=== PATIENT | female | born 1950 | race Caucasian/White ===

== ENCOUNTER 2019-12-08 11:59 | Outpatient (CLI) | payer MEDICARE ==
[~2019-12-08] VITALS: Ht 170.2 cm; Wt 90.8 kg
[2019-12-08] MEDS ORDERED: CYAN100088 PO (13:34)
[2019-12-08] MEDS ORDERED: CALC1CAP21 PO (13:34)
[2019-12-08] MEDS ORDERED: ATOR40TA70 PO (13:34)
[2019-12-08] MEDS ORDERED: CHOL500061 PO (13:34)
[2019-12-08] MEDS ORDERED: ALEN70TA2 PO (13:34)
[2019-12-08] MEDS ORDERED: ASPI-586 PO (13:34)
== END 2019-12-08 13:39 | disposition home or self-care (01) ==
LOC: PREOP 11:59
PROVIDERS: ATTEND Podiatrist Foot & Ankle Surgery
DX: Z01.818 Encounter for other preprocedural examination (principal)

== ENCOUNTER 2019-12-12 09:12 | Day surgery (SDC) | payer MEDICARE, OTHER ==
[2019-12-12] VITALS (10 sets, daily range): BP systolic 87–155; BP diastolic 41–96
[~2019-12-12] VITALS: Ht 170.2 cm; Wt 90.8 kg
[~2019-12-12 09:12] MED LIST: ALEN70TA2 PO; ASPI-586 PO; ATOR40TA70 PO; CALC1CAP21 PO; CHOL500061 PO; CYAN100088 PO
[2019-12-12] MEDS ORDERED: LACTATED RINGERS 1,000 ML IV PRN (09:26)
[2019-12-12] MEDS ORDERED: ceFAZolin INJECTION 1,000 MG in WATER (STERILE) FOR INJECTION 10 ML IV ONE (09:30)
[2019-12-12] MEDS ORDERED: fentaNYL INJECTION 100 MCG/2 ML AMP ONE (09:40)
[2019-12-12] MEDS ORDERED: BUPIVACAINE 0.5% 30 ML (SENSORCAINE) VIAL ONE (09:40)
[2019-12-12] MEDS ORDERED: MIDAZOLAM 2 MG/2 ML (VERSED) VIAL ONE (09:41)
[2019-12-12] MEDS ORDERED: CATHETER FLUSH 10 ML SYR IV PRN (09:45)
[2019-12-12] MEDS ORDERED: MULT-974 PO (10:22)
--- NOTE | 2019-12-12 11:52 | Progress Note-Pre Operative ---
Pre-Operative Progress Note H&P Reviewed The H&P was reviewed, patient examined and no changes noted. Date Seen by Provider: Dec 12, 2019 Time Seen by Provider: 11:51 Date H&P Reviewed: Dec 12, 2019 Time H&P Reviewed: 11:51 Pre-Operative Diagnosis: Hallux Rigidus left HANNAH BANSAL DPM Dec 12, 2019 11:51
[2019-12-12] MEDS ORDERED: ONDANSETRON 4 MG/2 ML (SDV) Z0FRAN ONE (12:47)
[2019-12-12] MEDS ORDERED: SEVOFLURANE (ULTANE) 15 ML INHAL SOLN ONE (12:47)
[2019-12-12] MEDS ORDERED: LIDOCAINE PF 2% 5 ML (XYLOCAINE) VIAL ONE (12:47)
[2019-12-12] MEDS ORDERED: proPOfol 200 MG/20 ML (DIPRIVAN) VIAL IV ONE (12:47)
[2019-12-12] MEDS ORDERED: HYDROmorphone 2 MG/ML VIAL (DILAUDID) IV ONE (13:00)
[2019-12-12] MEDS ORDERED: morphine INJ 10 MG/ML 1ML (SYR OR VIAL) IVP ONE (13:00)
[2019-12-12] MEDS ORDERED: ONDANSETRON 4 MG/2 ML (SDV) Z0FRAN IVP PRN (13:00)
[2019-12-12] MEDS ORDERED: MEPERIDINE (DEMEROL) INJ 50 MG/ML IVP ONE (13:00)
[2019-12-12] MEDS ORDERED: LACTATED RINGERS 1,000 ML IV SCH (13:04)
--- NOTE | 2019-12-12 13:04 | Progress Note-Post Operative ---
Post-Operative Progess Note Surgeon (s)/Superintendent Fish Hatchery (s) Surgeon HANNAH BANSAL DPM Superintendent [employer]chery: none Pre-Operative Diagnosis Hallux Rigidus left Post-Operative Diagnosis Same Procedure & Operative Findings Date of Procedure 12/12/19 Procedure Performed/Findings Metatarsal Fracisco-Implant, left Anesthesia Type General Estimated Blood Loss Estimated blood loss (mL): Minimal Specimens/Packing Specimens Removed None HANNAH BANSAL DPM Dec 12, 2019 13:04
[2019-12-12] MEDS ORDERED: CEPH500C PO (13:07)
[2019-12-12] MEDS ORDERED: HYDR-4226 PO (13:07)
--- NOTE | 2019-12-12 13:10 | Diagnostic Imaging Report ---
INDICATION: Fluoroscopy for left foot surgery. FINDINGS: Fluoroscopy was provided in the OR during left foot surgery. 4 seconds of fluoroscopic time was utilized. Two images were obtained demonstrating prosthesis in the distal first metatarsal. Alignment is anatomic. IMPRESSION: Fluoroscopy for left foot surgery. Dictated by: Dictated on workstation # [id number]
[2019-12-12] MEDS ORDERED: HYDROcodone/APAP 5 MG/325 MG (LORTAB) TAB PO PRN (13:15)
--- NOTE | 2019-12-12 13:45 | NUR ---
TO AMB SURG FROM PAR PER CART. ALERT, RATES LEFT FOOT PAIN 2. LEFT FOOT ELEVATED, ICE AT ANKLE. CMS CHECKS WNL TO LEFT TOES. COBAN WRAPPED DSG D/I TO LEFT FOOT. SPLINT SHOE APPLIED
[2019-12-12] MEDS ORDERED: HYDROcodone/APAP 5 MG/325 MG (LORTAB) TAB ONE (13:58)
--- NOTE | 2019-12-12 14:08 | NUR ---
TAKING PO FLUIDS AND CRACKERS WITHOUT PROBLEM. LORTAB 5/325 MG, ONE TAB, GIVEN PO FOR LEFT FOOT PAIN.
--- NOTE | 2019-12-12 14:55 | NUR ---
PAIN RATED 1-2. REQUESTING DISMISSAL. NO CHANGE IN SITE OR CMS ASSESSMENTS.
--- NOTE | 2019-12-12 20:16 | OPERATIVE REPORT ---
DATE OF SERVICE: 12/12/2019 SURGEON: Caroline Bansal DPM. PREOPERATIVE DIAGNOSIS: Hallux rigidus, left. POSTOPERATIVE DIAGNOSIS: Hallux rigidus, left. PROCEDURE: Ansley-implant for the metatarsal head, left first metatarsophalangeal joint. WOUND CLASS: Clean. ANESTHESIA: General. HEMOSTASIS: Pneumatic thigh tourniquet at 300 mmHg. INDICATIONS: This is a 69-year-old female presents complaining of a painful left great toe joint. Conservative therapy has met with unsatisfactory results and the patient is agreeable to surgical intervention after risks and complications were discussed at length. No guarantees were extended to the patient and she is willing to proceed. DESCRIPTION OF PROCEDURE: The patient was brought back to the operating table, placed in secure supine position. Appropriate timeout was performed. Pneumatic thigh tourniquet was placed on left lower extremity over several layers of padding. The left foot was anesthetized utilizing 8 mL of 0.5% Marcaine injected in a Banegas block, left foot was then prepped and draped in normal sterile manner. The left foot was then elevated, allowed to exsanguinate after which the tourniquet was inflated to 300 mmHg. Attention was then directed to the dorsal aspect of the left first metatarsophalangeal joint where a 6 cm longitudinal linear incision was created. The incision was deepened in same plane with great care to identify and retract all vital neurovascular structures where necessary blood vessels were cauterized as encountered. The incision was deepened down to the capsular tissue where a longitudinal capsulotomy was performed. The capsular tissue was reflected medially and laterally exposing the hypertrophic dorsal medial eminence to the first metatarsal head. The first metatarsal head was devoid of almost all articular cartilage. There was some deficit to the dorsal lateral aspect of the base of the proximal phalanx as well. Due to the amount of articular damage it was then decided that a ansley-implant would be more appropriate then cheilectomy at this point. Next, utilizing the Integra ansley-metatarsal implant system, the implant was applied to the left first metatarsal head. First, a guidewire was positioned utilizing the position guide from the first metatarsal head proximally and placement was confirmed with C-arm. Next, reamers were used. Concave reamer was used to shape the head of the first metatarsal, the 30 that was utilized. Next, a reamer was used over the guidewire followed by a guide to cut the dorsal flange of the first metatarsal head. After this, a sizer was applied, which was a size 30. There was crepitation free range of motion with approximately 45 degrees of dorsiflexion appreciated at this time. The sizer was removed and the wound was flushed with copious amounts of normal saline. After this, the Integra metatarsal ansley-implant was applied, impacted onto the digit confirmed with intraoperative C-arm the placement. The wound was flushed with copious amounts of normal saline after which closure was performed in layers. Deep closure was performed with 3-0 Vicryl, superficial with 4-0 Vicryl, skin closed with 4-0 Prolene in a horizontal mattress type stitch. Postoperative injection consisted of 10 mL of 0.5% Marcaine injected in a local infusion to the surgical sites. Postoperative dressing consisted of Betadine soaked Adaptic, sterile 4 x 4, sterile Kerlix all secured with Coban wrap. The patient tolerated the anesthesia and procedure well. He was transported from the operating room to the recovery area with vital signs stable and vascular status intact to all digits of the left foot. She is to follow up in my office in one week period of time or sooner if necessary. Job ID: [id number] DocumentID: [id number] Dictated Date: 12/12/2019 13:15:11 Produce Production Team Member Date: 12/12/2019 20:15:01 Dictated By: CAROLINE BANSAL DPM
--- OUTSIDE RECORDS SUMMARY | 2019-12-14 17:34 | XMS REPORT | CCD ---
Author Author ERICH MARCELINO Organization Unknown Address [address] [place] [address] Care Team Providers Care Agricultural Education Professor Name Role Phone DELTA GASTON, MIESHA MANRIQUEZ Attphys Allergies Allergy Code Allergy Type Reaction Status No Known Drug Allergies 0 Drug allergy Active Active Medications No Active Medications Problems Problem Code Start Date Resolved Date Sta tus Acute interstitial nephritis 14903268 07/09/2016 Active Nausea vomiting and diarrhea 9974126 07/09/2016 Active Procedures Procedure Code Procedure Type Date Arthrs kne surg w/meniscectomy med/lat w/shvg; (-RT Ri ght side of body) 67647 CPT 10/10/2016 Arthroscopy knee removal fb; (-XS Separate Structure); (-RT Right side of G0289 CPT 10/10/2016 Results Unknown or Not Available. Function Status Unknown or Not Available. History of Immunizations Immunization Code Date influenza, split (incl. purified surface antigen) 15 07/12/2008 pneumococcal polysaccharide PPV23 33 07/10/2016 Tdap 115 07/16/2015 zoster 121 06/13/2014 Influenza, high dose seasonal 135 09/0 06/2014 Influenza, seasonal, injectable 141 influenza, injectable, quadrivalent, preservative free 150 07/10/2016 Plan of Treatment Unknown or Not Available. Social History Smoking Status Code Start Date End Date Never smoker 479714527 Vital Signs Vital Sign Value Unit Date/Time Recent/I nitial? Weight Measured 200 [lb_av] 10/09/2016 11:13 Initial VS Height 68 [in_i] 10/09/2016 11:13 Initi al VS BMI (Body Mass Index) 30.41 kg/m2 10/09/2016 11 :13 Initial VS BSA (Body Surface Area) 2.09 m2 10/09/2016 11:13 Initial VS BP Systolic 119 mm[Hg] 10/10/2016 11:03 Initial VS BP Diastolic 61 mm[Hg] 10/10/2016 11:03 Initial VS Respiratory Rate 10 /min 10/10/2016 11:03 Initial VS Heart Rate 91 /min 10/10/2016 11:03 I nitial VS O2 % BldC Oximetry 93 % 10/10/2016 11:03 Initial VS BP Systolic 133 mm[Hg] 10/10/2016 11:33 Most Recent VS BP Diastolic 84 mm[Hg] 10/10/2016 11:33 Most Recent VS Respiratory Rate 17 /min 10/10/2016 11:34 Most Recent VS Heart Rate 61 /min 10/10/2016 11:34 M ost Recent VS O2 % BldC Oximetry 98 % 10/10/2016 11:34 Most Recent VS Function Status Unknown or Not Available. Goals Unknown or Not Available. ASSESSMENTS Unknown or Not Available. Health Concerns Section Unknown or Not Available.
--- OUTSIDE RECORDS SUMMARY | 2019-12-14 17:34 | XMS REPORT | CCD ---
Author Author ERICH VILLA Organization Unknown Address [address] [facility] [address] [place] [address] Care Team Providers Care Principal Statistical Scientist Name Role Phone WADENADINE DO Attphys WADEMELINDAR DO Prisurg Allergies Unknown or Not Available. Active Medications Medication Code Dose Units Frequency Rou te Modification Start Date/Time Benadryl Allergy 25MG Oral Tablet 3670723 25 MILLIGRAMS EVERY 4 HOURS ORAL 07/11/2016 09:21 Prescription Detail 25 MILLIGRAMS ORAL EVERY 4 HOURS Gabapentin 300MG Oral Capsule 122731 300 JOSE GRAMS AT BEDTIME ORAL 07/11/2016 09:21 Prescription Detail 300 MILLIGRAMS ORAL AT BEDT CARIN Problems Problem Code Start Date Resolved Date Sta tus Acute interstitial nephritis 34506271 07/09/2016 Active Nausea vomiting and diarrhea 1225428 07/09/2016 Active Procedures Procedure Code Procedure Type Date KNEE [address] 10/01/2016 Results Unknown or Not Available. Encounters Encounter Diagnosis Diagnosis Code Start Date Pain in left knee K59887 10/01/2016 Function Status Unknown or Not Available. History [...] Code Start Date End Date Never smoker [id number] Vital Signs Unknown or Not Available. Function Status Unknown or Not Available. Goals Unknown or Not Available. ASSESSMENTS Unknown or Not Available. Health Concerns Section Unknown or Not Available.
--- OUTSIDE RECORDS SUMMARY | 2019-12-14 17:34 | XMS REPORT ---
Discharge Summary 2.1 Created on: ERICH DE OLIVEIRA External Reference #: [id number] : 1950 Sex: Female Author Author ERICH SU Organization Unknown Address [address] [place], [place] [id number] Care Team Providers Care Cutting Room Supervisor Name Role Phone Xwatchlist EARNEST LOPEZ Xwatchlist ELISA [employer] Anesth NOT PRIV SANKET Yen PORTILLO MANRIQUEZ MD Attending CASSANDRA BRICEÑO APRN [facility] Functional Status No Data Found Immunization Immunization Date Status Additional Notes Code Code System influenza, split (incl. purified surface antigen) 07/12/2008 Completed 15 CVX pneumococcal polysaccharide PPV23 Completed 33 CVX Tdap 07/16/2015 Completed 115 CVX zoster live 06/13/2014 C ompleted 121 CVX Influenza, high dose seasonal 06/13/2014 Completed 135 CVX Influenza, high dose seasonal 06/22/2017 Completed 135 CVX Influenza, high dose seasonal 07/09/2018 Completed 135 CVX Influenza, seasonal, injectable 07/08/2013 Completed 141 CVX influenza, injectable, quadrivalent, preservative free 07/10/2016 Completed 150 CVX Mental Status No Data Found Results LUMBAR SPINE; 2VIEWS OR 3 VIEWS - Comple lai: 07/19/2018 15:55 LOINC: EXAMINATION:LUMBAR SPINE; 2VIEWS OR 3 EWSREASON FOR EXAM:SPINAL STENOSIS; COMPARISON:There is a CT lumbar spine dated July 01, 2018.TECHNIQUE:AP and lateral views of the lumbar spine were obtained in surgery. FINDINGS:There are pedicle fusion screws at L4 and L5. There is anterior subluxation of L4 on L5. Vertebral body alignment is otherwise normal. No periprosthetic lucency or fracture is evident. There is a spacer in the disc at L4-5.Skin dose mapping is 595 mrad.IMPRESSION:Intraoperative pictures of the lumbar spine demonstrate pedicle fusion screws at L4 and L5. No periprosthetic lucency or fracture is seen.Reviewed and Electronically Signed by: Chadd Alexander MD DABRSigned Date/Time: 07/20/2018 4:09 PMJob ID#: [id number] Social History Type Status Start Date End Date Code Code System Smoking History Never smoker (Never Smoked ) 702304303 SNOMED-CT Vital Signs Vital Sign Value Unit [place] Value [place] Unit Date/Time Recent/Initial? Code Cod e System Body Mass Index 30.41 kg /m2 07/16/2018 11:02 Inital 53290-2 LOINC Systolic Blood Pressure 118 mm[Hg] 07/20/2018 11:14 Most Recent 8480-6 LOINC Diastolic Blood Pressure 70 mm[Hg] 07/20/2018 11:14 Most Recent 8462-4 LOINC Systolic Blood Pressure 119 mm[Hg] 07/19/2018 12:13 Inital 8480-6 LOINC Diastolic Blood Pressure 48 mm[Hg] 07/19/2018 12:13 Inital 8462-4 LOINC Body Surface Area 2.09 m2 07/16/2018 11:02 Inital 3140-1 LOINC Height 172.7200 cm 68.00 in 07/16/2018 11:02 Init al 8302-2 LOINC O2 Saturation 98 % 07/20/2018 11:14 Most Recent 38189-0 LOINC O2 Saturation 88 % 07/19/2018 12:13 Inita l 36140-1 LOINC Pulse 65.0 /min 07/20/2018 11:14 Most Recent 8867-4 LOINC Pulse 90.0 /min 07/19/2018 12:13 Inita l 8867-4 LOINC Respiration 16 /min 07/20/2018 11:14 Most Recent 9279-1 LOINC Respiration 18 /min 07/19/2018 12:13 Inita l 9279-1 LOINC Temperature 36.5 Nette 97.7 F 07/20/2018 11:14 Most Recent 8310-5 LOINC Temperature 36.4 Nette 97.5 F 07/19/2018 13:45 Inita l 8310-5 LOINC Weight 90.7185 kg 200.00 lbs 07/16/2018 11:02 Ini edita 95319-7 LOINC Assessment No Data Found Hospital Discharge Instructions Should you have any questions prior to discharge, please contact a member of your healthcare team. If you have left the hospital and have any questions, please contact your primary care physician. PRIMARY CARE PROVIDER: Jada MCCLURE HOME MEDICATION INSTRUCTIONS: Take only the medications listed above.. Verbalizes understanding of instructions, Stop aspirin 81 mg daily until then restart. Verbalizes understanding of instructions. HOME DIET: Regular. ACTIVITY INSTRUCTIONS(list limitations): Activity as Tolerated, No Driving until after [address]st Dr. visit. No bending, or stooping, No hard or heavy excerise/activity, May Shower. Walk often with rest times, Wear C collar when ambulating and out of bed may take off for sleeping and in shower. Leave dressing on for 10 days. SCRIPTS WRITTEN BY DOCTOR GIVEN TO PATIENT? Yes, for what?, Valium 5 mg 1 tab every 6 hours as needed for muscle spasms. Percocet 5/325 mg 1-2 tabs every 4 hours as needed for pain. SMOKING CESSATION: A pamphlet on smoking was given to you, at admission.. IMMUNIZATIONS GIVEN DURING HOSPITALIZATION: Current on both FOLLOW UP APPOINTMENT: Dr. Lucio 08-24-18 at 9:30 am CONTACT PHYSICIAN IF YOU EXPERIENCE ANY: pain, fever, Redness or soreness in calf area. Odor or drainage from incision. PERSONAL ITEMS RETURNED: Yes. PATIENT PORTAL/OTHER INSTRUCTIONS: Provided education info on Patient Precious. INSTRUCTIONS GIVEN AND DISCHARGE TO: Patient. INSTRUCTIONS GIVEN BY (TYPE IN NAME AND DATE) Radha Randle RN 07-20-18 Reason For Referral No Data Found Hospital Course You were admitted to [facility] on 07/19/2018 06:57 with a principal diagnosis of Spinal stenosis, lumbar region without neurogenic claudication You were discharged from [facility] on 07/20/2018 13:45 Medications Medication Start Date En d Date Route Frequency Dose Code Code System Valium 5MG Oral Tablet 07/20/2018 Unknown BY MOUTH 1 TABLET 888168 RxNorm Multivitamin Oral Tablet 07/20/2018 Unknown ORAL DAILY 1 unit(s) 5401659 RxNorm Gabapentin 300MG Oral Capsule 07/20/2018 Unknown ORAL TWO TIMES A DAY 300 MILLIGRAMS 066587 Rx Norm CoQ10 100 MG-1 IU Oral Capsule, Liquid Filled 07/20/2018 Unknown ORAL DAILY 1 unit(s) RxNorm Calcium Citrate with Vitamin D3 315 MG-200 IU Oral Tab let 07/20/2018 Unknown ORAL FOUR TIMES A DAY 1 unit(s) 1017628 RxNorm Atorvastatin Calcium 40MG Oral Tablet 07/20/2018 Unknown ORAL DAILY 40 MILLIGRAMS 157430 RxNorm Aspir 81 81MG Oral Tablet, Enteric Coated 07/20/2018 Unknown 1 562857 RxNorm Leighann Allergy 180MG Oral Tablet Unknown ORAL NEEDED 180 MILLIGRAMS 830635 RxNorm oxyCODONE HCl-acetaminophen 5MG-325MG Oral Tablet 07/20/2018 Unknown BY MOUTH NEED ED 1 TABLET 9186793 RxNorm CoQ10 100 MG Oral Capsule 07/20/2018 Unknown BY MOUTH DAILY 100 MILLIGRAMS RxNorm Gabapentin 300MG Oral Capsule 07/20/2018 Unknown BY MOUTH TWO TIMES A DAY 300 MILLIGRAMS 405430 Rx Norm Procedures Procedure Name Date Stat us Code Code System History of hysterectomy completed 056240868 SNOMED CT Fusion of Lumbar Vertebral Joint with Au tologous Tissue Substitute, Site Monitor 07/19/2018 completed 0SG 0071 ICD10 PCS Release Lumbar Nerve, Open Approach 07/19/2018 completed 77KK3OC ICD10 PCS History of knee arthroscopy completed 732988450 SNOMED CT Fusion of Lumbar Vertebral Joint with In terbody Fusion Device, Posterior A 07/19/2018 completed 0SG 00AJ ICD10 PCS Colonoscopy completed 52188833 SNOMED CT Implants No Data Found Problems Problem Start Date Resol mehdi Date Status Code Code System ACUTE INTERSTITIAL NEPHRITIS 07/19/2018 resolved 56780511 SNOMED -CT NAUSEA VOMITING AND DIARRHEA 07/19/2018 resolved 0257098 SNOMED- CT UTI 07/16/2018 resolved 99373900 SNOMED-CT HIGH CHOLESTEROL 07/16 resolved 70898521 SNOMED -CT ARTHRITIS 07/16/2018 resolved 4343320 SNOMED-CT Allergies Allergy Substance Reaction Severity Start Date Concern Status Code Code System No Known Drug Allergies Active RxNorm Plan of Treatment No Data Found Encounters No Data Found Goals No Data Found Discharge Medications No Data Found Discharge Diagnosis Discharge Diagnosis Diagnosis Code Start Date Spinal stenosis, lumbar region without n eurogenic claudication O68800 07/19/2018 Health Concerns Section No Data Found
--- OUTSIDE RECORDS SUMMARY | 2019-12-14 17:34 | XMS REPORT | CCD ---
Author Author ERICH VILLA Organization Unknown Address [address] [place] [address] Care Team Providers Care Parcel [employer] Weigher Name Role Phone KATJA GLORIA MD Attphys [facility], [place] DELCID Prisurg W., GEM Brunner NASST K., BRETT NASST R., SHANDRA NASST R., MARGARITO Davis NASST S., MOLINA NASST R., ROSEANNE Guy NASST G., LEAH NASST S., DIMA NASST L., BENJAMIN NASST Allergies Unknown or Not Available. Active Medications Problems Problem Code Start Date Resolved Date Acute interstitial nephritis 26553271 07/09/2016 Active Nausea vomiting and diarrhea 9759633 07/09/2016 Active Procedures Procedure Code Procedure Type Date CT ABD AND PELVIS W/CONTRAST 288031059 SNOMED CT 07/09/[address] 07/11/2016 BASIC METABOLIC PANEL 981746009 SNOMED CT 04/2016 CBC W/ AUTO DIFF (RFLX MAN DIFF IF IND) 1688319 SN [facility] 07/11/2016 COMPREHENSIVE METABOLIC PANEL 150566828 SNOMED CT 07/10/2016 CBC W/ AUTO DIFF (RFLX MAN DIFF IF IND) 7426148 SN [facility] CT 07/10/2016 CULTURE URINE 220286672 SNOMED CT 07/09/2016 CULTURE BLOOD 76083955 SNOMED CT 07/09/2016 CULTURE BLOOD 09987996 SNOMED CT 07/09/2016 LACTIC ACID 2386860 [address] 07/09/[address] 07/09/2016 UA ROUTINE C&S IF IND 795860286 SNOMED CT 02/2016 COMPREHENS[facility]OL[facility]25667[facility]2016 C REACTIVE PROTEIN 08543685 [facility] CT 016 CBC W/ AUTO DIFF (RFLX MAN DIFF IF IND) 3363492 [facility] CT 07/09/2016 ^SENSITIVITY 370081076 SNOMED CT 07/09/2016 ^CULTURE AEROBIC ID [id number] SNOMED CT 2015 ^CBC W/ MANUAL DIFF 46386135 SNOMED CT 2015 ^CULTURE AEROBIC ID [id number] SNOMED CT 2015 ^CULTURE URINE IDENTIFICATION 956998659 SNOMED CT 07/09/2016 ^CBC W/ MANUAL DIFF 06632346 SNOMED CT 2015 ^UA WITH MICRO 539283623 SNOMED CT 07/09/2016 ^CBC W/ MANUAL DIFF 52461750 SNOMED CT 2015 LOCM 300-349 MG/ML, PER ML 525708828 [facility] CT 07/09/2016 Results BASIC METABOLIC PANEL - Collect Date/Sukhi e: 07/11/2016 06:25 Test Name Code Test Result Test Units Karishma t Ref Range GLUCOSE 2345-7 114 MG/DL L=70 H=1 00 SODIUM 2951-2 141 MEQ/L L=135 H=14 8 POTASSIUM 2823-3 3.8 MEQ/L L=3.5 H =5.3 CHLORIDE 2075-0 115 MEQ/L L=96 H= 110 CO2 2028-9 19 MEQ/L L=22 H=29 BUN 3094-0 13 MG/DL L=8 H=22 CREATININE 2160-0 1.0 MG/DL L=0.6 H=1.6 CALCIUM 61823-5 7.8 MG/DL L=8.2 H= 10.6 AGE [address]6819-3 65 yrs GFR NonAA 42081-3 55 GFR AA 73544-7 67 eGFR 47182-8 55 mL/min/1.7 eGFR AA* 31608-3 >60 N/A COMPREHENSIVE METABOLIC PANEL - Collect Date/Time: 07/10/2016 06:25 Test Name Code Test Result Test Units Karishma t Ref Range GLUCOSE 2345-7 127 MG/DL L=70 H=1 00 SODIUM 2951-2 138 MEQ/L L=135 H=14 8 POTASSIUM 2823-3 3.4 MEQ/L L=3.5 H =5.3 CHLORIDE 2075-0 108 MEQ/L L=96 H= 110 CO2 2028-9 20 MEQ/L L=22 H=29 BUN 3094-0 19 MG/DL L=8 H=22 CREATININE 2160-0 1.3 MG/DL L=0.6 H=1.6 SGOT/AST 1920-8 17 IU/L L=10 H= 40 SGPT/ALT 1742-6 18 IU/L L=8 H= 54 ALK PHOS 6768-6 105 IU/L L=35 H= 115 TOTAL PROTEIN 2885-2 5.2 G/DL L=5.5 H=8.5 ALBUMIN 1751-7 2.9 G/DL L=3.1 H=5 .4 TOTAL BILI 1975-2 0.5 MG/DL L=0.0 H=1.5 CALCIUM 66279-8 7.8 MG/DL L=8.2 H= 10.6 AGE 63340-3 65 yrs GFR NonAA 03432-7 41 GFR AA 67917-3 50 eGFR 02822-0 41 mL/min/1.7 eGFR AA* 57502-0 50 mL/min/1.7 COMPREHENSIVE METABOLIC PANEL - Collect Date/Time: 07/09/2016 18:45 Test Name Code Test Result Test Units Karishma t Ref Range GLUCOSE 2345-7 199 MG/DL L=70 H=1 00 SODIUM 2951-2 136 MEQ/L L=135 H=14 8 POTASSIUM 2823-3 3.0 MEQ/L L=3.5 H =5.3 CHLORIDE 2075-0 99 MEQ/L L=96 H= 110 CO2 2028-9 21 MEQ/L L=22 H=29 BUN 3094-0 16 MG/DL L=8 H=22 CREATININE 2160-0 1.3 MG/DL L=0.6 H=1.6 SGOT/AST 1920-8 21 IU/L L=10 H= 40 SGPT/ALT 1742-6 25 IU/L L=8 H= 54 ALK PHOS 6768-6 121 IU/L L=35 H= 115 TOTAL PROTEIN 2885-2 6.6 G/DL L=5.5 H=8.5 ALBUMIN 1751-7 3.6 G/DL L=3.1 H=5 .4 TOTAL BILI 1975-2 1.0 MG/DL L=0.0 H=1.5 CALCIUM 87417-3 9.1 MG/DL L=8.2 H= 10.6 AGE 65 yrs GFR NonAA 41 GFR AA 50 eGFR 41 mL/min/1.7 eGFR AA* 50 mL/min/1.7 LIPASE - Collect Date/Time: 07/09/2016 1 8:45 Test Name Code Test Result Test Units Karishma t Ref Range LIPASE 3040-3 6 U/L L=8 H=78 CBC W/ AUTO DIFF (RFLX MAN DIFF IF IND) - Collect Date/Time: 07/11/2016 06:25 Test Name Code Test Result Test Units Karishma t Ref Range WBC 99087-3 17.1 TH/CMM L=4.5 H=1 0.8 RBC 789-8 3.45 ML/CMM L=4.20 H=5. 40 HGB 718-7 10.2 G/DL L=12.0 H=16 .0 HCT 4544-3 31.5 % L=37.0 H=47 .0 MCV 86489-7 91 FL L=81 H=9 9 MCH 70462-6 29.6 PG L=27.0 H=3 3.0 MCHC 04401-4 32.4 G/DL L=31.0 H=3 6.0 [place] [address]-5 44 FL L=36 H=5 0 [place] [address]-7 13.2 % L=0.0 H=1 4.8 MPV 42475-5 9.8 FL L=9.3 H=1 2.5 PLT 777-3 171 TH/CMM L=130 H=44 0 NRBC# 95856-0 0.00 TH/CMM L=0.00 H=0 .00 NRBC% 59925-2 0.0 /100WBC L=0.0 H= 2.0 %NEUT 65059-5 84.5 % %LYMP 17893-0 7.5 % %MONO 34839-6 5.7 % %EOS 80660-8 1.2 % %BASO 92428-0 0.1 % #NEUT 71272-5 14.47 TH/CMM L=2.10 H=8 .20 #LYMP 85662-8 1.28 TH/CMM L=0.90 H=5 .20 #MONO 34566-0 0.97 TH/CMM L=0.16 H=1 .00 #EOS 31166-5 0.20 TH/CMM L=0.00 H=0 .80 #BASO 88962-1 0.02 TH/CMM L=0.00 H=0 .20 SEGS 72260-4 82 % BANDS 54538-3 3 % LYMPHS 63665-9 9 % MONOS 70348-1 3 % EOS 44067-4 3 % MANUAL DIFF 99953-1 SEE BELOW N/A CBC W/ AUTO DIFF (RFLX MAN DIFF IF IND) - Collect Date/Time: 07/10/2016 06:25 Test Name Code Test Result Test Units Karishma t Ref Range WBC 20403-2 22.3 TH/CMM L=4.5 H=1 0.8 RBC 789-8 3.61 ML/CMM L=4.20 H=5. 40 HGB 718-7 10.9 G/DL L=12.0 H=16 .0 HCT 4544-3 32.4 % L=37.0 H=47 .0 MCV 51379-3 90 FL L=81 H=9 9 MCH 55735-4 30.2 PG L=27.0 H=3 3.0 MCHC 03066-0 33.6 G/DL L=31.0 H=3 6.0 [place] [address]-2 41 FL L=36 H=5 0 [place] 03341-6 12.4 % L=0.0 H=1 4.8 MPV 96969-9 9.6 FL L=9.3 H=1 2.5 PLT 777-3 154 TH/CMM L=130 H=44 0 NRBC# 08230-5 0.00 TH/CMM L=0.00 H=0 .00 NRBC% 75502-3 0.0 /100WBC L=0.0 H= 2.0 %NEUT 19157-6 88.5 % %LYMP 94955-6 5.6 % %MONO 94268-5 4.9 % %EOS 44314-0 0.1 % %BASO 64715-3 0.2 % #NEUT 51656-4 19.69 TH/CMM L=2.10 H=8 .20 #LYMP 84015-7 1.24 TH/CMM L=0.90 H=5 .20 #MONO 90428-2 1.09 TH/CMM L=0.16 H=1 .00 #EOS 37807-1 0.02 TH/CMM L=0.00 H=0 .80 #BASO 75444-0 0.05 TH/CMM L=0.00 H=0 .20 SEGS 34091-0 72 % BANDS 32358-4 22 % LYMPHS 57658-4 5 % MONOS 72604-4 1 % MANUAL DIFF 02029-0 SEE BELOW N/A CBC W/ AUTO DIFF (RFLX MAN DIFF IF IND) - Collect Date/Time: 07/09/2016 18:45 Test Name Code Test Result Test Units Karishma t Ref Range WBC 77869-0 25.7 TH/CMM L=4.5 H=1 0.8 RBC 789-8 4.28 ML/CMM L=4.20 H=5. 40 HGB 718-7 13.0 G/DL L=12.0 H=16 .0 HCT 4544-3 38.2 % L=37.0 H=47 .0 MCV 89 FL L=81 H=99 MCH 30.4 PG L=27.0 H=33 .0 MCHC 34.0 G/DL L=31.0 H=36 .0 RDW SD 40 FL L=36 H=50 RDW CV 12.3 % L=0.0 H=14 .8 MPV 10.0 FL L=9.3 H=12 .5 PLT 777-3 173 TH/CMM L=130 H=44 0 NRBC# 0.00 TH/CMM L=0.00 H=0. 00 NRBC% 0.0 /100WBC L=0.0 H=2 .0 %NEUT 90.1 % %LYMP 3.7 % %MONO 4.3 % %EOS 0.0 % %BASO 0.2 % #NEUT 23.15 TH/CMM L=2.10 H=8. 20 #LYMP 0.94 TH/CMM L=0.90 H=5. 20 #MONO 1.11 TH/CMM L=0.16 H=1. 00 #EOS 0.00 TH/CMM L=0.00 H=0. 80 #BASO 0.05 TH/CMM L=0.00 H=0. 20 SEGS 77 % BANDS 16 % LYMPHS 4 % MONOS 3 % MANUAL DIFF SEE BELOW N/A UA ROUTINE C&S IF IND - Collect Date/Sukhi e: 07/09/2016 20:45 Test Name Code Test Result Test Units Karishma t Ref Range COLOR YELLOW N/A NL: YELLOW APPEARANCE HAZY N/A NL: CLEAR SPEC GRAV 1.015 N/A NL: 1.002 - 1.022 pH 6.0 N/A NL: 5 - 9 PROTEIN 100 N/A NL: NEGATIVE mg/dl GLUCOSE NEGATIVE N/A NL: NEGATIVE mg/dl KETONE TRACE N/A NL: NEGATIVE m g/dl BILIRUBIN NEGATIVE N/A NL: NEGATI VE BLOOD LARGE N/A NL: NEGATIVE NITRITE NEGATIVE N/A NL: NEGATIVE LEUK SCREEN LARGE N/A NL: NEGATI VE MICRO INDICATED? SEE BELOW N/A WBC/HPF 20-50 N/A NL: NEGATIVE RBC/HPF 5-10 N/A NL: NEGATIVE CASTS/LPF NEGATIVE N/A NL: NEGAT BLUE CRYSTALS NEGATIVE N/A NL: NEGATI VE MUCOUS THRDS NEGATIVE N/A NL: NE GATIVE BACTERIA 1+ N/A NL: NEGATIVE EPITH CELLS FEW SQUAMOUS N/A NL: NEGATIVE TRICHOMONAS NEGATIVE N/A NL: NEG ATIVE YEAST NEGATIVE N/A NL: NEGATIVE CULT SET UP? YES N/A C REACTIVE PROTEIN - Collect Date/Time: 07/09/2016 18:45 Test Name Code Test Result Test Units Karishma t Ref Range C REACTIVE PROTEIN 1988-5 21.6 MG/DL L=0 .0 H=1.0 LACTIC ACID - Collect Date/Time: 016 18:45 Test Name Code Test Result Test Units Karishma t Ref Range LACTIC ACID 2524-7 1.5 mmol/L L=0.5 H=1.6 MAGNESIUM - Collect Date/Time: 6 06:25 Test Name Code Test Result Test Units Karishma t Ref Range MAGNESIUM 26514-7 1.9 MG/DL L=1.7 H=2.8 Function Status Unknown or Not Available. History [...] Code Start Date End Date Never smoker [id number] Vital Signs Vital Sign Value Unit Date/Time Recent/I nitial? Weight Measured 217.05 [lb_av] 07/09/2016 22:07 Initial VS Height 68 [in_i] 07/09/2016 22:07 Initi al VS BMI (Body Mass Index) 33.12 kg/m2 07/09/2016 22 :07 Initial VS BSA (Body Surface Area) 2.17 m2 07/09/2016 22:07 Initial VS BP Systolic 160 mm[Hg] 07/09/2016 22:07 Initial VS BP Diastolic 76 mm[Hg] 07/09/2016 22:07 Initial VS Respiratory Rate 20 /min 07/09/2016 22:07 Initial VS Heart Rate 86 /min 07/09/2016 22:07 I nitial VS O2 % BldC Oximetry 95 % 07/09/2016 22:07 Initial VS Body Temperature 99.5 [degF] 07/09/2016 22:07 Initial VS BP Systolic 127 mm[Hg] 07/11/2016 10:20 Most Recent VS BP Diastolic 78 mm[Hg] 07/11/2016 10:20 Most Recent VS Respiratory Rate 22 /min 07/11/2016 10:20 Most Recent VS Heart Rate 102 /min 07/11/2016 10:20 M ost Recent VS O2 % BldC Oximetry 99 % 07/11/2016 10:20 Most Recent VS Body Temperature 97.3 [degF] 07/11/2016 10:20 Most Recent VS Function Status Unknown or Not Available. Goals Unknown or Not Available. ASSESSMENTS Unknown or Not Available. Health Concerns Section Unknown or Not Available.
--- OUTSIDE RECORDS SUMMARY | 2019-12-14 17:35 | XMS REPORT ---
Author Shandra Porter Organization [facility] Address [address] [place], [place] [id number] Care Team Providers Care Television Repairman Name Role Phone Jada Pulliam PCP Jada Pulliam PreferredProvider Allergies and Adverse Reactions Name Reaction Notes ciprofloxacin migraine codeine sulfate Plan of Treatment Planned Activity Comments Planned Date Planned Time Plan/Goal Urine Culture, [place] Count 03/04/2016 12:00 AM Osteoporosis and fracture Fracture T12 and L3 lumbar pain 12/17/2015 2:00 PM EKG. 12/07/2019 12:00 AM consult for frequent UTI Mammography; bilateral 06/18/2015 12:00 AM Medications Active Name Start Date Estimated Completion Date SIG Co mments Calcium 600 + D(3) 600 mg(1,500mg) -400 unit oral tablet take 2 tablets by oral route daily Aspir-81 81 mg oral tablet,delayed release (DR/EC) take 1 tablet (81 mg) by oral route once daily Fish Oil 1,000 mg oral capsule take 1 cap eliane by oral route daily Leighann-D 12 Hour 60-120 mg oral tablet extended release 12 hr take 1 tablet by oral route 2 times per day multivitamin oral tablet take 1 tablet by oral route daily Vitamin D3 5,000 unit oral tablet take 1 tablet by oral route daily estradiol 0.01 % (0.1 mg/gram) vaginal cream 07/09/2018 INSERT ONE APPLICATORFUL VAGINALLY TWICE A WEEK Fosamax 70 mg oral tablet 06/02/2019 take 1 tablet (70 mg) by oral route once weekly in the morning, at least 30 min before food, beverage, or medication. Take with 8 oz water. Remain upright at least 30 min after taking medication. atorvastatin 40 mg oral tablet 08/15/2019 T KINDRA 1 TABLET BY MOUTH ONCE DAILY AT BEDTIME Name Start Date Expiration Date SIG Comments Augmentin 875-125 mg oral tablet 10/24/2009 11/03/2009 take 1 tablet by oral route every 12 hours for 10 days Bactrim DS 800-160 mg oral tablet 11/07/2009 11/28/2009 take 1 tablet by oral route 2 times per day for 21 days doxycycline hyclate 100 mg oral capsule 12/05/2009 0 take 1 capsule by oral route 2 times a day for 21 days Bactrim DS 800-160 mg oral tablet 08/27/2010 09/03/2010 take 1 tablet by oral route 2 times per day for 7 days Avelox 400 mg oral tablet 10/15/2010 10/25/2010 take 1 tablet (400 mg) by oral route once daily for 10 days Augmentin 875-125 mg oral tablet 11/07/2010 11/17/2010 take 1 tablet by oral route every 12 hours for 10 days antipyrine-benzocaine 5.4-1.4 % otic drops 11/07/2010 011 instill into left ear by otic route every 2 hours as needed enough drops to fill ear canal for 3 days clindamycin HCl 300 mg oral capsule 11/18/2010 11/28/2010 take 1 capsule (300 mg) by oral route every 6 hours for 10 days Prednisone 20 mg 11/18/2010 11/30/2010 si tabs PO daily for 3 days then 2 tabs PO daily for 3 days then 1 tab Po Daily for 3 days then 1/2 tab PO daily for 3 days. Flexeril 10 mg oral tablet 04/28/2011 05/12/2011 take 1 tablet (10 mg) by oral route 3 times per day for 14 days Bactrim DS 800-160 mg oral tablet 06/03/2011 06/10/2011 take 1 tablet by oral route every 12 hours for 7 days prednisone 50 mg oral tablet 08/08/2011 08/22/2011 anderson e 1 tablet (50 mg) by oral route once daily for 14 days Ativan 1 mg oral tablet 10/25/2011 11/24/2011 take 1 t ablet (1 mg) by oral route 3 times per day for 30 days Lexapro 20 mg oral tablet 01/13/2012 03/13/2012 take 1 tablet (20 mg) by oral route once daily for 30 days oxycodone-acetaminophen 5-325 mg oral tablet 02/02/201202/02 take 1 tablet by oral route every 4-6 hours as needed for 14 days Zantac 150 mg oral tablet 03/04/2012 07/02/2012 take 1 tablet (150 mg) by oral route 2 times per day for 30 days Macrobid 100 mg oral capsule 03/10/2012 03/17/2012 anderson e 1 capsule (100 mg) by oral route every 12 hours with food for 7 days Xanax 0.25 mg oral tablet 04/13/2012 05/13/2012 take 1 tablet d aily at HS prednisone 20 mg oral tablet 05/03/2012 05/13/2012 anderson e 3 tabs by mouth x2 days then 2 tabs x2 days then 1 tab x2 days then 1/2 tab x4 days Zithromax Z-Meliton 250 mg oral tablet 10/07/2012 10/12/2012 take 2 tablets (500 mg) by oral route once daily for 1 day then 1 tablet (250 mg) by oral route once daily for 4 days Zithromax Z-Meliton 250 mg oral tablet 01/10/2013 01/15/2013 take 2 tablets (500 mg) by oral route once daily for 1 day then 1 tablet (250 mg) by oral route once daily for 4 days Zithromax Z-Meliton 250 mg oral tablet 07/20/2013 07/25/2013 take 2 tablets (500 mg) by oral route once daily for 1 day then 1 tablet (250 mg) by oral route once daily for 4 days Leighann-D 12 Hour 60-120 mg oral tablet extended release 12 hr 04/17/2015 06/16/2015 take 1 tablet by oral route 2 times per day for 30 day s Retin-A 0.025 % topical cream 06/18/2015 ap ply to the affected area(s) by topical route once daily at bedtime Zithromax Z-Meliton 250 mg oral tablet 09/14/2015 09/19/2015 take 2 tablets (500 mg) by oral route once daily for 1 day then 1 tablet (250 mg) by oral route once daily for 4 days Bactrim DS 800-160 mg oral tablet 02/29/2016 03/07/2016 take 1 tablet by oral route every 12 hours for 7 days Bactrim DS 800-160 mg oral tablet 03/28/2016 04/04/2016 take 1 tablet by oral route 2 times per day for 7 days Medrol (Meliton) 4 mg oral tablets,dose pack 04/13/2016 04/20/20 16 take as directed for 7 days Lexapro 10 mg oral tablet 06/30/2016 07/30/2016 take 1 tablet (10 mg) by oral route once daily for 30 days Bactrim DS 800-160 mg oral tablet 07/23/2016 07/30/2016 take 1 tablet by oral route every 12 hours for 7 days Levaquin 750 mg oral tablet 08/12/2016 08/19/2016 take 1 tablet (750 mg) by oral route once daily for 7 days promethazine-codeine 6.25-10 mg/5 mL oral syrup 10/08/2017 take 5 milliliters by oral route every 4-6 hours as needed, not to exceed 30 mL in 24 hours Bactrim DS 800-160 mg oral tablet 01/03/2018 take 1 tablet by oral route every 12 hours for 3 days cephalexin 500 mg oral capsule 07/05/2018 07/12/2018 t kindra 1 capsule (500 mg) by oral route every 12 hours for 7 days Percocet 5-325 mg oral tablet 07/26/2018 08/25/2018 ta ke 1 tablet by oral route every 4-6 hours as needed for 30 days Discontinued Name Start Date Discontinued Date SIG Comments Multivitamin Oral Tablet 12/06/2012 take 1 tablet by oral route once daily with food Zyrtec 10 mg oral tablet 06/14/2010 take 1 tablet (10 mg) by oral route once daily Benadryl 25 mg oral capsule 06/03/2011 1 capsule a d ay prn ibuprofen 200 mg oral tablet 10/28/2011 anderson e 2 tablets (400 mg) by oral route every 4 hours as needed with food Replaced/Retired Drug 500 mg oral tablet 06/03/20 11 take 2 tablets (1,000 mg) by oral route every 6 hours as needed doxepin 10 mg oral capsule 12/05/2009 06/03/2011 take 1 capsule (10 mg) by oral route once daily at bedtime as needed amitriptyline 50 mg oral tablet 05/16/2010 06/03/2011 take 1 tablet by oral route once a day (at bedtime) Leighann 180 mg oral tablet 06/14/2010 01/10/2013 take 1 tablet (180 mg) by oral route once daily Flonase 50 mcg/actuation nasal spray,suspension 12/24/2010 10/28/2011 spray 1- 2 sprays in each nostril by intranasal route once daily Fosamax 70 mg oral tablet 05/01/2011 10/29/2011 take 1 tablet (70 mg) by oral route once weekly in the morning, at least 30 minutes before the first food, beverage, or medication of the day prednisone 20 mg oral tablet 05/26/2011 06/03/2011 anderson e 2 tablets by oral route daily for 10 days Medrol (Meliton) 4 mg oral tablets,dose pack 10/07/2012 12/06/2012 take as directed Flonase 50 mcg/actuation nasal spray,suspension 01/11/2013 06/28/2014 inhale 1 spray (50 mcg) in each nostril by intranasal route 2 times per day Zetia 10 mg oral tablet 09/10/2013 09/13/2013 take 1 t ablet (10 mg) by oral route once daily amitriptyline 10 mg oral tablet 06/28/2014 08/17/2014 take 1 tablet by mouth at HS pravastatin 40 mg oral tablet 06/28/2014 06/29/2014 ta ke 1 tablet (40 mg) by oral route once daily for 90 days Estrace 0.01 % (0.1 mg/gram) vaginal cream 08/17/201408/18 insert 1 gram by vaginal route 3 times per week for 30 days Premarin 0.625 mg/gram vaginal cream 10/18/2014 11/08/2014 apply 1 applicatorful by vaginal route three times a week Neurontin 300 mg oral capsule 11/10/2014 11/14/2015 take 1 caps ule at HS Leighann-D 24 Hour 180-240 mg oral tablet extended release 24 hr 02/08/2015 04/17/2015 take 1 tablet by oral route once daily o n an empty stomach with a glass of water for 30 days promethazine-DM 6.25-15 mg/5 mL oral syrup 09/14/20152015 take 5 milliliters by oral route every 6 hours as needed Lipitor 40 mg oral tablet 10/23/2015 take 1 tablet (40 mg) by oral route once daily at bedtime for 30 days gabapentin 100 mg oral capsule 11/14/2015 01/09/2016 T KINDRA ONE CAPSULE BY MOUTH TWICE DAILY, IN THE MORNING AND MID-DAY phentermine 37.5 mg oral tablet 11/14/2015 03/26/2016 take 1 tablet (37.5 mg) by oral route once daily before breakfast cyclobenzaprine 10 mg oral tablet 01/09/2016 10/06/2017 take 1 tablet by oral route once a day (at bedtime) gabapentin 300 mg oral capsule 01/09/2016 01/09/2016 t kindra 1 capsule (300 mg) by oral route 3 times per day for 30 days Lortab 7.5-325 7.5-325 mg oral tablet 01/09/2016 03/26/2016 take 1 tablet by oral route every 6 hours as needed for pain tretinoin 0.025 % topical cream 01/10/2016 10/18/2019 APPLY CREAM TO AFFECTED AREA ONCE DAILY AT BEDTIME hydrocodone-acetaminophen 7.5-325 mg oral tablet 02/29/2016 10/06/2017 take 1 tablet by oral route every 6 hours as needed for pain hydroxyzine HCl 25 mg oral tablet 03/26/2016 10/06/2017 take 1 tablet (25 mg) by oral route 3 times per day as needed Zantac 150 mg oral tablet 03/26/2016 10/06/2017 take 1 tablet (150 mg) by oral route 2 times per day Augmentin 875-125 mg oral tablet 03/31/2016 07/21/2016 take 1 tablet by oral route every 12 hours Xanax 0.25 mg oral tablet 06/30/2016 10/06/2017 Take one tablet daily at needed Keflex oral 10/06/2017 Flonase Allergy Relief 50 mcg/actuation nasal spray,suspensi on 08/12/2016 10/06/2017 inhale 2 sprays (100 mcg) in each nostri l by intranasal route once daily ProAir HFA 90 mcg/actuation inhalation HFA aerosol inhaler 201510/06/2017 inhale 1 puff (90 mcg) by inhalation route every 4-6 hours as needed Medrol (Meliton) 4 mg oral tablets,dose pack 08/12/2016 10/06/2017 take as directed promethazine-codeine 6.25-10 mg/5 mL oral syrup 09/09/2016 10/06/2017 take 5 milliliters by oral route every 4-6 hours as needed, not to exceed 30 mL in 24 hours Zyrtec-D 5-120 mg oral tablet extended release 12 hr 09/09/2016 10/06/2017 take 1 tablet by oral route 2 times per day Lipitor 40 mg oral tablet 02/19/2017 10/06/2017 take 1 tablet (40 mg) by oral route once daily at bedtime for 90 days diclofenac sodium 75 mg oral tablet,delayed release (DR/EC) 201706/29/2018 take 1 tablet (75 mg) by oral route 2 times per day for 30 days Estrace 0.01 % (0.1 mg/gram) vaginal cream 10/06/20172017 INSERT ONE APPLICATORFUL VAGINALLY TWICE A WEEK gabapentin 100 mg oral capsule 10/06/2017 04/20/2018 t kindra 1 capsule daily am and noon change dosage to 300mg TID Flonase Allergy Relief 50 mcg/actuation nasal spray,suspensi on 10/08/2017 06/29/2018 spray 1 spray (50 mcg) in each nostril by intranasal r oute once daily Zyrtec-D 5-120 mg oral tablet extended release 12 hr 10/08/2017 06/29/2018 take 1 tablet by oral route 2 times per day gabapentin 300 mg oral capsule 04/20/2018 08/24/2018 t kindra 1 capsule by oral route 3 times a day cranberry 500 mg oral capsule 10/18/2019 take 1 caps ule by oral route daily Voltaren 1 % topical gel 03/14/2019 10/18/2019 apply 2 gram to the affected area(s) by topical route 4 times per day Medrol (Meliton) 4 mg oral tablets,dose pack 06/02/2019 10/18/2019 take as directed Problem List Description Status Onset Allergic rhinitis Active Arthritis unspecified Active Hyperlipidemia Active Insomnia, unspecified Active lumbar back pain Active Menopausal Syndrome Active Obesity Active Osteopenia Active Restless Legs Active Lumbar spinal stenosis Active 06/28/2014 Actinic keratoses Active 11/30/2014 Solar lentigo Active 11/30/2014 Seborrheic keratosis Active 11/30/2014 Nevus Active 02/26/2018 Colon Cancer Screening Active 01/18/2019 Vital Signs Date Time BP-Sys(mm[Hg] BP-Rekha(mm[Hg]) HR(bpm) RR(rpm) Temp WT HT HC BMI BSA BMI Percentile O2 Sat(%) 12/07/2019 10:34:00 AM 126 mm[Hg] 78 mm[Hg] 66 {beats}/min 17 rpm 97.5 F 203.5 lbs 68 in 30.9418 kg/m2 2.1044 m2 98 % 10/18/2019 10:13:00 AM 130 mm[Hg] 80 mm[Hg] 77 {beats}/min 96.8 F 208 lbs 68 in 31.63 kg/m2 2.13 m2 96 % 03/22/2019 8:52:00 AM 120 mm[Hg] 84 mm[Hg] 87 {beats}/min 98.9 F 225.312 lbs 68 in 34.2583 kg/m2 2.2144 m2 97 % 03/14/2019 1:48:00 PM 116 mm[Hg] 70 mm[Hg] 80 {beats}/min 18 rpm 98.1 F 224 lbs 68 in 34.06 kg/m2 2.21 m2 99 % 01/11/2019 2:59:00 PM 170 mm[Hg] 82 mm[Hg] 72 {beats}/min 20 rpm 97.6 F 222 lbs 68 in 33.7546 kg/m2 2.198 m2 08/24/2018 9:47:00 AM 126 mm[Hg] 84 mm[Hg] 99 {beats}/min 98.1 F 238 lbs 68 in 36.19 kg/m2 2.28 m2 97 % 07/16/2018 5:30:00 PM 150 mm[Hg] 100 mm[Hg] 94 {beats}/min 18 rpm 97.8 F 229.25 lbs 68 in 34.857 kg/m2 2.2336 m2 96 % 07/05/2018 7:10:00 PM 162 mm[Hg] 88 mm[Hg] 104 {beats}/min 97.9 F 230 lbs 68 in 34.97 kg/m2 2.24 m2 95 % 06/29/2018 11:16:00 AM 136 mm[Hg] 76 mm[Hg] 105 {beats}/min 98.9 F 225.5 lbs 68 in 34.2868 kg/m2 2.2153 m2 95 % 04/20/2018 1:19:00 PM 126 mm[Hg] 72 mm[Hg] 70 {beats}/min 18 rpm 98.1 F 223.5 lbs 68 in 33.98 kg/m2 2.21 m2 95 % 03/19/2018 1:36:00 PM 129 mm[Hg] 78 mm[Hg] 68 {beats}/min 20 rpm 97.5 F 222 lbs 68 in 33.7546 kg/m2 2.198 m2 03/12/2018 10:36:00 AM 129 mm[Hg] 78 mm[Hg] 68 {beats}/min 20 rpm 97.5 F 222.5 lbs 68 in 33.83 kg/m2 2.20 m2 02/26/2018 9:58:00 AM 147 mm[Hg] 86 mm[Hg] 60 {beats}/min 20 rpm 97.6 F 221 lbs 68 in 33.6026 kg/m2 2.1931 m2 01/03/2018 1:13:00 PM 138 mm[Hg] 88 mm[Hg] 84 {beats}/min 16 rpm 96.2 F 231 lbs 68 in 35.12 kg/m2 2.24 m2 94 % 10/08/2017 10:04:00 AM 138 mm[Hg] 78 mm[Hg] 78 {beats}/min 18 rpm 98.8 F 226.5 lbs 68 in 34.4389 kg/m2 2.2202 m2 95 % 10/06/2017 1:26:00 PM 130 mm[Hg] 78 mm[Hg] 86 {beats}/min 18 rpm 98.4 F 232.5 lbs 68 in 35.35 kg/m2 2.25 m2 96 % 08/12/2016 1:30:00 PM 136 mm[Hg] 74 mm[Hg] 87 {beats}/min 18 rpm 98 F 218.25 lbs 68 in 33.1845 kg/m2 2.1794 m2 96 % 08/05/2016 8:28:00 AM 100 mm[Hg] 60 mm[Hg] 80 {beats}/min 18 rpm 98.4 F 219 lbs 68 in 33.30 kg/m2 2.18 m2 95 % 07/21/2016 2:43:00 PM 124 mm[Hg] 62 mm[Hg] 86 {beats}/min 18 rpm 98 F 216 lbs 68 in 32.8424 kg/m2 2.1681 m2 94 % 07/09/2016 5:16:00 PM 124 mm[Hg] 90 mm[Hg] 130 {beats}/min 98.2 F 214 lbs 68 in 32.54 kg/m2 2.16 m2 96 % 04/13/2016 1:38:00 PM 122 mm[Hg] 77 mm[Hg] 87 {beats}/min 18 rpm 99.3 F 224 lbs 68 in 34.0587 kg/m2 2.2079 m2 95 % 03/26/2016 3:14:00 PM 138 mm[Hg] 78 mm[Hg] 94 {beats}/min 18 rpm 98.5 F 226.25 lbs 68 in 34.40 kg/m2 2.22 m2 97 % 02/29/2016 11:28:00 AM 136 mm[Hg] 78 mm[Hg] 95 {beats}/min 18 rpm 100.1 F 227.062 lbs 97 % 01/09/2016 1:53:00 PM 122 mm[Hg] 76 mm[Hg] 87 {beats}/min 18 rpm 97.3 F 227 lbs 68 in 34.5149 kg/m2 2.2226 m2 97 % 11/14/2015 1:37:00 PM 134 mm[Hg] 72 mm[Hg] 80 {beats}/min 18 rpm 97.3 F 227 lbs 68 in 34.51 kg/m2 2.22 m2 97 % 10/18/2014 11:18:00 AM 128 mm[Hg] 86 mm[Hg] 70 {beats}/min 18 rpm 97.7 F 209.375 lbs 68 in 31.835 kg/m2 2.1346 m2 98 % 08/17/2014 2:11:00 PM 154 mm[Hg] 77 mm[Hg] 64 {beats}/min 98.2 F 215.5 lbs 68 in 32.77 kg/m2 2.17 m2 06/28/2014 9:44:00 AM 134 mm[Hg] 72 mm[Hg] 74 {beats}/min 18 rpm 98.2 F 223.25 lbs 68 in 33.9447 kg/m2 2.2042 m2 96 % 07/20/2013 10:31:00 AM 132 mm[Hg] 68 mm[Hg] 71 {beats}/min 18 rpm 97.4 F 231 lbs 68 in 35.12 kg/m2 2.24 m2 96 % 01/10/2013 1:33:00 PM 132 mm[Hg] 68 mm[Hg] 66 {beats}/min 18 rpm 97.9 F 231.125 lbs 68 in 35.1421 kg/m2 2.2427 m2 06/16/2012 2:03:00 PM 128 mm[Hg] 72 mm[Hg] 68 {beats}/min 18 rpm 98.8 F 229.25 lbs 68 in 34.86 kg/m2 2.23 m2 05/04/2012 4:40:00 PM 134 mm[Hg] 68 mm[Hg] 66 {beats}/min 18 rpm 98.9 F 236.375 lbs 68 in 35.9403 kg/m2 2.2681 m2 03/10/2012 11:12:00 AM 128 mm[Hg] 64 mm[Hg] 66 {beats}/min 18 rpm 22 6 lbs 68 in 34.36 kg/m2 2.22 m2 03/04/2012 2:59:00 PM 134 mm[Hg] 68 mm[Hg] 66 {beats}/min 18 rpm 98 F 229.25 lbs 68 in 34.857 kg/m2 2.2336 m2 01/13/2012 9:08:00 AM 140 mm[Hg] 90 mm[Hg] 107 {beats}/min 97.4 F 232 lbs 96 % 12/16/2011 3:48:00 PM 97 F 234 lbs 11/28/2011 1:39:00 PM 118 mm[Hg] 75 mm[Hg] 84 {beats}/min 98.6 F 97 % 10/28/2011 4:15:00 PM 130 mm[Hg] 78 mm[Hg] 66 {beats}/min 18 rpm 98.8 F 236.125 lbs 68 in 35.9023 kg/m2 2.2669 m2 08/14/2011 3:14:00 PM 130 mm[Hg] 80 mm[Hg] 69 {beats}/min 97.9 F 234.375 lbs 97 % 06/03/2011 3:18:00 PM 142 mm[Hg] 86 mm[Hg] 94 {beats}/min 97.4 F 227 lbs 05/07/2011 4:59:00 PM 140 mm[Hg] 88 mm[Hg] 87 {beats}/min 97.9 F 225 .125 lbs 97 % 04/28/2011 2:48:00 PM 118 mm[Hg] 88 mm[Hg] 77 {beats}/min 97.2 F 229 lbs 96 % 11/18/2010 11:00:00 AM 120 mm[Hg] 80 mm[Hg] 64 {beats}/min 16 rpm 98.4 F 222.25 lbs 68 in 33.7927 kg/m2 2.1993 m2 94 % 11/07/2010 1:41:00 PM 130 mm[Hg] 88 mm[Hg] 66 {beats}/min 18 rpm 98.8 F 225 lbs 68 in 34.21 kg/m2 2.21 m2 95 % 10/15/2010 4:06:00 PM 140 mm[Hg] 90 mm[Hg] 67 {beats}/min 18 rpm 98.7 F 223.375 lbs 68 in 33.9637 kg/m2 2.2048 m2 96 % 08/27/2010 8:15:00 AM 128 mm[Hg] 78 mm[Hg] 64 {beats}/min 16 rpm 96.8 F 225.5 lbs 05/16/2010 4:17:00 PM 150 mm[Hg] 88 mm[Hg] 88 {beats}/min 16 rpm 98.3 F 231 lbs 68 in 35.1231 kg/m2 2.2421 m2 97 % 12/05/2009 4:39:00 PM 140 mm[Hg] 100 mm[Hg] 83 {beats}/min 18 rpm 98.4 F 228.125 lbs 68 in 34.69 kg/m2 2.23 m2 98 % 11/07/2009 2:02:00 PM 120 mm[Hg] 86 mm[Hg] 77 {beats}/min 18 rpm 98.8 F 230 lbs 68 in 34.971 kg/m2 2.2373 m2 99 % 10/24/2009 3:58:00 PM 110 mm[Hg] 80 mm[Hg] 80 {beats}/min 18 rpm 97.6 F 229 lbs 68 in 34.82 kg/m2 2.23 m2 95 % Social History Name Description Comments No history of foreign travel Alcohol Use - Rare Denies illicit substance abuse Attended some college 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 Tobacco Never smoker History of Procedures Date Ordered Description Order Status 06/03/2011 12:00 AM COMPREHEN METABOLIC PANEL Reviewed 06/03/2011 12:00 AM LIPID PANEL Reviewed 06/03/2011 12:00 AM GLYCOSYLATED HEMOGLOBIN TEST Reviewed 06/04/2011 12:00 AM URINALYSIS AUTO W/O SCOPE Reviewed 06/03/2011 12:00 AM URINALYSIS AUTO W/SCOPE Reviewed 06/03/2011 12:00 AM URINE CULTURE/COLONY COUNT Reviewed 07/09/2015 12:00 AM Prolia, 1 Mg Reviewed 07/16/2015 12:00 AM Fluzone MEDICARE Only Reviewed 07/16/2015 12:00 AM TDAP VACCINE 7 YRS/> IM Reviewed 11/14/2015 12:00 AM COMPLETE CBC W/AUTO DIFF WBC Reviewed 11/14/2015 12:00 AM COMPREHEN METABOLIC PANEL Reviewed 11/14/2015 12:00 AM LIPID PANEL Reviewed 11/14/2015 12:00 AM ASSAY THYROID STIM HORMONE Reviewed 11/14/2015 12:00 AM MRI LUMBAR SPINE W/O DYE Reviewed 11/15/2015 12:00 AM Physical Therapy Consult Reviewed 11/15/2015 12:00 AM GLYCOSYLATED HEMOGLOBIN TEST Reviewed 08/07/2011 12:00 AM THER/PROPH/DIAG INJ SC/IM Reviewed 08/07/2011 12:00 AM Solu-Medrol 125 Mg Reviewed 02/27/2016 12:00 AM Prolia, 60 Mg Reviewed 02/29/2016 12:00 AM URNLS DIP STICK/TABLET RGNT AUTO W/O KATHRIN ROSCOPY Reviewed 02/29/2016 12:00 AM Rocephin [address] [facility]#5919-9385-40 Reviewe d 03/27/2016 12:00 AM INJECT SPINE LUMBAR/SACRAL Reviewed 03/27/2016 12:00 AM URNLS DIP STICK/TABLET RGNT AUTO W/O KATHRIN ROSCOPY Reviewed 03/26/2016 12:00 AM Benadryl, Up to [address] [facility]# 9790-5309-24 Reviewed 04/04/2016 12:00 AM IMMUNOTHERAPY ONE INJECTION Reviewed 10/29/2011 12:00 AM URINALYSIS AUTO W/O SCOPE Reviewed 10/28/2011 12:00 AM COMPLETE CBC W/AUTO DIFF WBC Reviewed 10/28/2011 12:00 AM COMPREHEN METABOLIC PANEL Reviewed 10/28/2011 12:00 AM URINE CULTURE/COLONY COUNT Reviewed 05/22/2016 12:00 AM ALLERGEN SPECIFIC IGE Reviewed 05/22/2016 12:00 AM Decadron, Per [address] [facility]# [address]-71 Re viewed 05/22/2016 12:00 AM Depo-Medrol 40mg Reviewed 05/22/2016 12:00 AM THER/PROPH/DIAG INJ SC/IM Reviewed 07/21/2016 12:00 AM METABOLIC PANEL TOTAL CA Reviewed 07/21/2016 12:00 AM COMPLETE CBC W/AUTO DIFF WBC Reviewed 2016 12:00 AM MAMMOGRAPHY SCREENING, DIGITAL Reviewed 08/05/2016 12:00 AM CYTOPATH C/V THIN LAYER Reviewed 08/05/2016 12:00 AM DXA BONE DENSITY AXIAL Reviewed 08/05/2016 12:00 AM Pap Specimen Handling - Medicare Reviewe d 08/05/2016 12:00 AM MAMMOGRAPHY SCREENING, DIGITAL Reviewed 01/08/2012 12:00 AM THER/PROPH/DIAG INJ SC/IM Reviewed 01/08/2012 12:00 AM Depo-Medrol [address] [facility]#[id number] Reviewe d 09/08/2016 12:00 AM METABOLIC PANEL TOTAL CA Reviewed 09/08/2016 12:00 AM COMPLETE CBC W/AUTO DIFF WBC Reviewed 09/08/2016 12:00 AM RADIOLOGIC EXAM CHEST 2 VIEWS FRONTAL&LA TERAL Reviewed 04/13/2016 12:00 AM Depo-Medrol, Per [address] [facility]#[address]-86 Reviewed 04/13/2016 12:00 AM Decadron, Per [address] [facility]# [address]-91 Re viewed 04/13/2016 12:00 AM THER/PROPH/DIAG INJ SC/IM Reviewed 03/12/2012 12:00 AM URINALYSIS AUTO W/O SCOPE Reviewed 03/10/2012 12:00 AM URINE CULTURE/COLONY COUNT Reviewed 05/04/2012 12:00 AM COMPLETE CBC W/AUTO DIFF WBC Reviewed 05/04/2012 12:00 AM COMPREHEN METABOLIC PANEL Reviewed 05/04/2012 12:00 AM LIPID PANEL Reviewed 05/04/2012 12:00 AM GLYCOSYLATED HEMOGLOBIN TEST Reviewed 05/04/2012 12:00 AM RBC SED RATE NONAUTOMATED Reviewed 06/16/2012 12:00 AM X-RAY EXAM OF FOOT Reviewed 10/06/2017 12:00 AM COMPLETE CBC W/AUTO DIFF WBC Reviewed 10/06/2017 12:00 AM COMPREHEN METABOLIC PANEL Reviewed 10/06/2017 12:00 AM LIPID PANEL Reviewed 10/06/2017 12:00 AM ASSAY THYROID STIM HORMONE Reviewed 10/08/2017 12:00 AM GLYCOSYLATED HEMOGLOBIN TEST Reviewed 01/03/2018 2:15 PM URINALYSIS AUTO W/O SCOPE Reviewed 12/01/2012 12:00 AM COMPREHEN METABOLIC PANEL Reviewed 01/03/2018 12:00 AM URINE CULTURE/COLONY COUNT Reviewed 12/29/2012 12:00 AM Prolia, 60 Mg Reviewed 12/29/2012 12:00 AM THER/PROPH/DIAG INJ SC/IM Reviewed 01/10/2013 12:00 AM THER/PROPH/DIAG INJ SC/IM Reviewed 01/10/2013 12:00 AM Decadron, Per [address] [facility]# [address]-10 Re viewed 01/10/2013 12:00 AM Depo-Medrol, Per [address] [facility]#8703-9926-50 Reviewed 06/30/2018 12:[address] LUMBAR SPINE W/O DYE Returned 06/30/2018 12:00 AM COMPLETE CBC W/AUTO DIFF WBC Returned 06/30/2018 12:00 AM PROTHROMBIN TIME Returned 06/30/2018 12:00 AM THROMBOPLASTIN TIME PARTIAL Returned 06/30/2018 12:00 AM URINALYSIS AUTO W/O SCOPE Returned 06/30/2018 12:00 AM METABOLIC PANEL TOTAL CA Returned 06/30/2018 12:00 AM Type & Screen Reviewed 06/30/2018 12:00 AM ELECTROCARDIOGRAM TRACING Reviewed 06/30/2018 12:00 AM CHEST X-RAY 2VW FRONTAL&LATL Returned 07/05/2018 7:22 PM URINALYSIS AUTO W/O SCOPE Reviewed 07/05/2018 12:00 AM Rocephin 1 gram Injection Reviewed 07/05/2018 12:00 AM URINE BACTERIA CULTURE Reviewed 07/05/2018 12:00 AM THER/PROPH/DIAG INJ SC/IM Reviewed 07/15/2018 12:00 AM URNLS DIP STICK/TABLET RGNT AUTO W/O AKTHRIN ROSCOPY Reviewed 07/26/2018 12:00 AM RADEX SPINE LUMBOSACRAL 2/3 VIEWS Return ed 08/02/2018 12:00 AM REMOVE SUTURES SAME SURGEON Reviewed 07/05/2013 12:00 AM Prolia, 60 Mg Reviewed 12/06/2018 12:00 AM RADEX SPINE LUMBOSACRAL 2/3 VIEWS Return ed 07/20/2013 12:00 AM THER/PROPH/DIAG INJ SC/IM Reviewed 07/20/2013 12:00 AM Depo-Medrol, Per [address] [facility]#7363-0665-04 Reviewed 07/20/2013 12:00 AM Decadron, Per [address] [facility]# [address]-09 Re viewed 03/14/2019 12:00 AM DXA BONE DENSITY AXIAL Returned 03/14/2019 12:00 AM COMPLETE CBC W/AUTO DIFF WBC Returned 03/14/2019 12:00 AM COMPREHEN METABOLIC PANEL Returned 03/14/2019 12:00 AM LIPID PANEL Returned 03/14/2019 12:00 AM ASSAY THYROID STIM HORMONE Returned 08/16/2019 12:00 AM RADEX SPINE LUMBOSACRAL 2/3 VIEWS Return ed 08/30/2019 12:00 AM RADEX HAND MINIMUM 3 VIEWS Reviewed 10/19/2019 12:00 AM MRI LUMBAR SPINE W/O DYE Returned 12/07/2019 12:00 AM COMPLETE CBC W/AUTO DIFF WBC Returned 12/07/2019 12:00 AM COMPREHEN METABOLIC PANEL Returned 05/13/2010 12:00 AM COMPREHEN METABOLIC PANEL Reviewed 05/13/2010 12:00 AM LIPID PANEL Reviewed 05/09/2010 12:00 AM GLYCOSYLATED HEMOGLOBIN TEST Reviewed 05/16/2010 12:00 AM COMPREHEN METABOLIC PANEL Reviewed 05/16/2010 12:00 AM LIPID PANEL Reviewed 05/16/2010 12:00 AM VITAMIN D 25 HYDROXY Reviewed 10/15/2010 12:00 AM CHEST X-RAY 2VW FRONTAL&LATL Reviewed 04/28/2014 12:00 AM Prolia, 1 Mg RHC Medicare Reviewed 06/28/2014 12:00 AM COMPLETE CBC W/AUTO DIFF WBC Reviewed 06/28/2014 12:00 AM COMPREHEN METABOLIC PANEL Reviewed 06/28/2014 12:00 AM LIPID PANEL Reviewed 10/24/2009 12:00 AM THER/PROPH/DIAG INJ SC/IM Reviewed 10/24/2009 12:00 AM Kenalog 40 Mg Im[facility]#[id number] Review ed 11/30/2014 12:00 AM DESTRUCT PREMALG LESION Reviewed 11/30/2014 12:00 AM DESTRUCT PREMALG LES 2-14 Reviewed 12/26/2014 12:00 AM Prolia, 60 Mg Reviewed 11/07/2009 12:00 AM CHEST X-RAY 2VW FRONTAL&LATL Reviewed Results Summary Date and Description Results 03/31/2008 12:00 AM Colonoscopy-Women and Men ov er 50 Normal 04/16/2009 12:00 AM Glucose SerPl-mCnc 108.0 mg/ dL 04/24/2009 12:00 AM Mammogram -Women over 40 Nor mal Dexa Bone Scan Done 08/15/2009 12:00 AM Cholest Cry Stone Ql IR 240. 0 %LDLc SerPl-mCnc 150.0 mg/dLHDLc SerPl-mCnc 35.0 mg/dLTrigl SerPl-mCnc 236.0 mg/dLDepression Done HIV1+2 Ab Ser Ql no risk Aspirin reccommended Reccommended 10/24/2009 12:00 PM Pap Smear Declined 05/10/2010 12:00 AM Cholest Cry Stone Ql IR 189. 0 %LDLc SerPl-mCnc 103.0 mg/dLGlucose SerPl-mCnc 106.0 mg/dL 05/10/2010 8:35 AM TRIGLYCERIDES 245.0 mg/dLCHO LESTEROL 189.0 mg/dLHDL 37.0 mg/dLTOT CHOL/HDL 5.1 LDL (CALC) 103.0 mg/dLGLYCOHEMOGLOBIN A1C 6.10 %GLUCOSE 106.0 mg/dLSODIUM 141.0 mmol/LPOTASSIUM 4.30 mmol/LCHLORIDE 107.0 mmol/LCO2 23.0 mmol/LBUN 20.0 mg/dLCREATININE 1.0 mg/dLSGOT/AST 26.0 IU/LSGPT/ALT 42.0 IU/LALK PHOS 70.0 IU/LTOTAL PROTEIN 6.90 g/dLALBUMIN 4.20 g/dLTOTAL BILI 0.70 mg/dLCALCIUM 9.60 mg/dLAGE 59 GFR NonAA 56 GFR AA 68 eGFR 56 eGFR AA* >60 07/02/2010 12:00 AM Mammogram -Women over 40 Ord ered 06/03/2011 1:00 PM COLOR YELLOW APPEARANCE HAZY SPEC GRAV 1.030 pH 6.0 PROTEIN NEGATIVE GLUCOSE 500 KETONE NEGATIVE BILIRUBIN NEGATIVE BLOOD TRACE NITRITE POSITIVE LEUK SCREEN TRACE WBC/HPF 5-10 RBC/HPF RARE CASTS/LPF NEGATIVE CRYSTALS NEGATIVE MUCOUS THRDS FEW BACTERIA 2++ EPITH CELLS FEW SQUAMOUS TRICHOMONAS NEGATIVE YEAST NEGATIVE CULT SET UP? YES 10/28/2011 4:55 PM GLUCOSE 90.0 mg/dLSODIUM 141 .0 mmol/LPOTASSIUM 3.90 mmol/LCHLORIDE 107.0 mmol/LCO2 22.0 mmol/LBUN 13.0 mg/dLCREATININE 0.90 mg/dLSGOT/AST 28.0 IU/LSGPT/ALT 35.0 IU/LALK PHOS 68.0 IU/LTOTAL PROTEIN 7.10 g/dLALBUMIN 4.60 g/dLTOTAL BILI 0.60 mg/dLCALCIUM 9.60 mg/dLAGE 61 GFR NonAA 63 GFR AA 76 eGFR >60 mL/min/1.73 m2eGFR AA* >60 WBC 5.4 RBC 5.02 HGB 15.10 g/dLHCT 45.20 %MCV 90.0 fLMCH 30.10 pgMCHC 33.40 g/dLRDW SD 43 RDW CV 13.10 %MPV 11.40 fLPLT 231 NRBC# 0.00 NRBC% 0.0 %NEUT 39.20 %%LYMP 48.30 %%MONO 9.60 %%EOS 2.90 %%BASO 0.0 %#NEUT 2.13 #LYMP 2.62 #MONO 0.52 #EOS 0.16 #BASO 0.00 MANUAL DIFF NOT IND 05/05/2012 9:18 AM WBC 15.8 RBC 4.91 HGB 14.80 g/dLHCT 45.20 %MCV 92.0 fLMCH 30.10 pgMCHC 32.70 g/dLRDW SD 45 RDW CV 13.40 %MPV 10.40 fLPLT 336 NRBC# 0.00 NRBC% 0.0 %NEUT 82.50 %%LYMP 12.60 %%MONO 4.80 %%EOS 0.0 %%BASO 0.10 %#NEUT 13.02 #LYMP 1.99 #MONO 0.76 #EOS 0.00 #BASO 0.02 MANUAL DIFF SEE BELOW SEGS 81 LYMPHS 16 MONOS 3 GLUCOSE 138.0 mg/dLSODIUM 141.0 mmol/LPOTASSIUM 4.20 mmol/LCHLORIDE 107.0 mmol/LCO2 22.0 mmol/LBUN 23.0 mg/dLCREATININE 1.0 mg/dLSGOT/AST 16.0 IU/LSGPT/ALT 32.0 IU/LALK PHOS 84.0 IU/LTOTAL PROTEIN 7.30 g/dLALBUMIN 4.60 g/dLTOTAL BILI 0.40 mg/dLCALCIUM 9.60 mg/dLAGE 61 GFR NonAA 56 GFR AA 68 eGFR 56 eGFR AA* 60 TRIGLYCERIDES 165.0 mg/dLCHOLESTEROL 215.0 mg/dLHDL 47.0 mg/dLTOT CHOL/HDL 4.6 LDL (CALC) 135.0 mg/dLSEDRATE 10.0 mm/hrGLYCOHEMOGLOBIN A1C 6.30 % 12/02/2012 3:02 PM GLUCOSE 97.0 mg/dLSODIUM 143 .0 mmol/LPOTASSIUM 3.80 mmol/LCHLORIDE 107.0 mmol/LCO2 26.0 mmol/LBUN 17.0 mg/dLCREATININE 1.30 mg/dLSGOT/AST 24.0 IU/LSGPT/ALT 31.0 IU/LALK PHOS 71.0 IU/LTOTAL PROTEIN 7.30 g/dLALBUMIN 4.10 g/dLTOTAL BILI 0.40 mg/dLCALCIUM 9.60 mg/dLAGE 62 GFR NonAA 41 GFR AA 50 eGFR 41 eGFR AA* 50 06/28/2014 11:30 AM WBC 7.2 RBC 4.93 HGB 15.10 g /dLHCT 44.0 %MCV 89.0 fLMCH 30.60 pgMCHC 34.30 g/dLRDW SD 44 RDW CV 13.40 %MPV 11.10 fLPLT 215 NRBC# 0.00 NRBC% 0.0 %NEUT 57.70 %%LYMP 31.80 %%MONO 7.40 %%EOS 2.70 %%BASO 0.40 %#NEUT 4.13 #LYMP 2.28 #MONO 0.53 #EOS 0.19 #BASO 0.03 MANUAL DIFF NOT IND GLUCOSE 98.0 mg/dLSODIUM 140.0 mmol/LPOTASSIUM 4.10 mmol/LCHLORIDE 105.0 mmol/LCO2 25.0 mmol/LBUN 11.0 mg/dLCREATININE 0.90 mg/dLSGOT/AST 29.0 IU/LSGPT/ALT 35.0 IU/LALK PHOS 58.0 IU/LTOTAL PROTEIN 7.40 g/dLALBUMIN 4.50 g/dLTOTAL BILI 0.80 mg/dLCALCIUM 10.0 mg/dLAGE 63 GFR NonAA 63 GFR AA 76 eGFR 60 eGFR AA* 60 TRIGLYCERIDES 139.0 mg/dLCHOLESTEROL 161.0 mg/dLHDL 35.0 mg/dLTOT CHOL/HDL 4.6 LDL (CALC) 98.0 mg/dL 11/15/2015 8:46 AM WBC 5.9 RBC 4.75 HGB 14.50 g /dLHCT 43.60 %MCV 92.0 fLMCH 30.50 pgMCHC 33.30 g/dLRDW SD 44 RDW CV 13.20 %MPV 10.50 fLPLT 232 NRBC# 0.00 NRBC% 0.0 %NEUT 41.0 %%LYMP 48.20 %%MONO 8.10 %%EOS 2.40 %%BASO 0.30 %#NEUT 2.43 #LYMP 2.86 #MONO 0.48 #EOS 0.14 #BASO 0.02 MANUAL DIFF NOT IND GLUCOSE 111.0 mg/dLSODIUM 141.0 mmol/LPOTASSIUM 3.70 mmol/LCHLORIDE 107.0 mmol/LCO2 25.0 mmol/LBUN 16.0 mg/dLCREATININE 0.90 mg/dLSGOT/AST 19.0 IU/LSGPT/ALT 27.0 IU/LALK PHOS 70.0 IU/LTOTAL PROTEIN 6.80 g/dLALBUMIN 4.40 g/dLTOTAL BILI 0.80 mg/dLCALCIUM 9.10 mg/dLAGE 65 GFR NonAA 62 GFR AA 75 eGFR >60 mL/min/1.73 m2eGFR AA* >60 TRIGLYCERIDES 113.0 mg/dLCHOLESTEROL 142.0 mg/dLHDL 37.0 mg/dLTOT CHOL/HDL 3.8 LDL (CALC) 82.0 mg/dLTSH 2.080 uIU/mLHemoglobin A1c 6.10 %Estim. Avg Glu (eAG) 128 02/29/2016 10:58 AM COLOR YELLOW APPEARANCE ANTHONY R SPEC GRAV 1.020 pH 6.0 PROTEIN NEGATIVE GLUCOSE NEGATIVE mg/dLKETONE NEGATIVE BILIRUBIN NEGATIVE BLOOD NEGATIVE NITRITE POSITIVE LEUK SCREEN SMALL MICRO INDICATED? SEE BELOW WBC/HPF 20-50 RBC/HPF NEGATIVE CASTS/LPF NEGATIVE /LPFCRYSTALS NEGATIVE MUCOUS THRDS FEW BACTERIA 2++ EPITH CELLS 1+ SQUAMOUS /HPFTRICHOMONAS NEGATIVE YEAST NEGATIVE CULT SET UP? YES 03/27/2016 3:20 PM COLOR YELLOW APPEARANCE ANTHONY R SPEC GRAV 1.025 pH 5.5 PROTEIN NEGATIVE GLUCOSE NEGATIVE mg/dLKETONE NEGATIVE BILIRUBIN NEGATIVE BLOOD TRACE- INTACT NITRITE NEGATIVE LEUK SCREEN SMALL MICRO INDICATED? SEE BELOW WBC/HPF 20- 50 RBC/HPF NEGATIVE CASTS/LPF NEGATIVE /LPFCRYSTALS NEGATIVE MUCOUS THRDS NEGATIVE BACTERIA FEW EPITH CELLS 1+ SQUAMOUS /HPFTRICHOMONAS NEGATIVE YEAST NEGATIVE CULT SET UP? YES 05/22/2016 3:30 PM G099-FtQ D pteronyssinus <0. 10 U/yDL234-LbB D farinae <0.10 U/xDL091-SjJ Cat Dander <0.10 L354-MmZ Dog Dander <0.10 U/zFF107-ThD [place] Grass <0.10 U/iPV164-BkK [place],[email or web address]hy <0.10 U/hNU493-RcK [place] Grass <0.10 U/jOJ807-QlC Cockroach,Swedish <0.10 Q762-OoZ Penicilliumchrysogen <0.10 Q791-XzT Cladosporiumherbarum <0.10 V128-IkB Aspergillusfumigatus <0.10 X606-AyS Mucor racemosus <0.10 O539-GyS Alternariaalternata <0.10 U006-EmK Stemphyliumherbarum <0.10 A832-WzU Maple/[place] <0.10 U/cQC783-ZxZ Horseheads, White <0.10 U/cKU536-WnQ Elm, Swedish <0.10 U/iOZ110-UzX [place] <0.10 U/yTE611-EnL Merlin, White <0.10 U/eXT028-CxV Maple LeafSycamore <0.10 U/oJF165-GrK White [place] <0.10 U/yZU345-UfX Ragweed, Short <0.10 E022-EmV [place] <0.10 W009- IgE Plantain,[place] <0.10 I547-GvK Thistle, [place] <0.10 D255-GrL Pigweed, Common <0.10 U015-EfQ Sheep [place] <0.10 D890-MuN Milk <0.10 P289-QpW Wheat <0.10 U/dFU847-LcU [place] <0.10 U/uII662-UiJ Peanut <0.10 U/zIT990-WsU Soybean <0.10 U/eKZ543-UxB Pork <0.10 U/nFK483-BoC Beef <0.10 U/uRRV07-SbM Food Mix(Seafoods) Negative D433-PiR Egg, Whole <0.10 U/pAS424-RvK Chocolate/[place] <0.10 07/21/2016 3:26 PM GLUCOSE 104.0 mg/dLSODIUM 14 4.0 mmol/LPOTASSIUM 4.0 mmol/LCHLORIDE 107.0 mmol/LCO2 27.0 mmol/LBUN 16.0 mg/dLCREATININE 1.0 mg/dLCALCIUM 9.40 mg/dLAGE 65 GFR NonAA 55 GFR AA 67 eGFR 55 eGFR AA* >60 WBC 6.2 RBC 4.23 HGB 12.60 g/dLHCT 39.70 %MCV 94.0 fLMCH 29.80 pgMCHC 31.70 g/dLRDW SD 45 RDW CV 13.20 %MPV 10.10 fLPLT 322 NRBC# 0.00 NRBC% 0.0 %NEUT 55.70 %%LYMP 33.30 %%MONO 7.70 %%EOS 2.30 %%BASO 0.20 %#NEUT 3.47 #LYMP 2.07 #MONO 0.48 #EOS 0.14 #BASO 0.01 MANUAL DIFF NOT IND 09/08/2016 11:55 AM GLUCOSE 104.0 mg/dLSODIUM 14 1.0 mmol/LPOTASSIUM 4.0 mmol/LCHLORIDE 108.0 mmol/LCO2 24.0 mmol/LBUN 17.0 mg/dLCREATININE 1.0 mg/dLCALCIUM 9.60 mg/dLAGE 66 GFR NonAA 55 GFR AA 67 eGFR 55 eGFR AA* >60 WBC 6.2 RBC 4.42 HGB 13.20 g/dLHCT 40.30 %MCV 91.0 fLMCH 29.90 pgMCHC 32.80 g/dLRDW SD 44 RDW CV 13.10 %MPV 10.40 fLPLT 223 NRBC# 0.00 NRBC% 0.0 %NEUT 49.60 %%LYMP 34.10 %%MONO 8.70 %%EOS 6.80 %%BASO 0.30 %#NEUT 3.09 #LYMP 2.12 #MONO 0.54 #EOS 0.42 #BASO 0.02 MANUAL DIFF NOT IND 10/08/2017 10:58 AM WBC 5.0 RBC 5.10 HGB 15.50 g /dLHCT 45.90 %MCV 90.0 fLMCH 30.40 pgMCHC 33.80 g/dLRDW SD 42 RDW CV 12.80 %MPV 10.10 fLPLT 169 NRBC# 0.00 NRBC% 0.0 %NEUT 58.0 %%LYMP 27.10 %%MONO 12.70 %%EOS 1.20 %%BASO 0.60 %#NEUT 2.87 #LYMP 1.34 #MONO 0.63 #EOS 0.06 #BASO 0.03 MANUAL DIFF NOT IND TSH 1.070 uIU/mLTRIGLYCERIDES 130.0 mg/dLCHOLESTEROL 143.0 mg/dLHDL 37.0 mg/dLTOT CHOL/HDL 3.9 LDL (CALC) 80.0 mg/dLGLUCOSE 130.0 mg/dLSODIUM 139.0 mmol/LPOTASSIUM 3.80 mmol/LCHLORIDE 106.0 mmol/LCO2 23.0 mmol/LBUN 15.0 mg/dLCREATININE 1.10 mg/dLSGOT/AST 25.0 IU/LSGPT/ALT 24.0 IU/LALK PHOS 77.0 IU/LTOTAL PROTEIN 7.80 g/dLALBUMIN 4.30 g/dLTOTAL BILI 0.60 mg/dLCALCIUM 9.50 mg/dLAGE 67 GFR NonAA 49 GFR AA 59 eGFR 49 eGFR AA* 59 HGB A1C 5.80 %Est Avg Glucose 119.8 mg/dL 01/03/2018 2:15 PM Clarity Ur clear Urine-Color light yellow Glucose Ur-sCnc negative Bilirub Ur Ql negative Ketones Ur Ql Strip negative Sp Gr Ur Qn 1.015 Hgb Ur Ql Strip negative pH Ur-LsCnc 6.0 Prot Ur Ql Strip 30mg/dL Urobilinogen Ur-mCnc 1.0mg/dL Nitrite Ur Ql Strip negative WBC # Ur negative 07/05/2018 7:22 PM Clarity Ur clear Urine-Color yellow Glucose Ur-sCnc negative Bilirub Ur Ql negative Ketones Ur Ql Strip negative Sp Gr Ur Qn 1.015 Hgb Ur Ql Strip negative pH Ur-LsCnc 6.5 Prot Ur Ql Strip trace Urobilinogen Ur-mCnc 0.2 Nitrite Ur Ql Strip positive WBC # Ur trace 07/16/2018 6:06 PM COLOR YELLOW APPEARANCE ANTHONY R SPEC GRAV 1.025 pH 6.5 PROTEIN NEGATIVE GLUCOSE NEGATIVE KETONE NEGATIVE BILIRUBIN NEGATIVE BLOOD NEGATIVE NITRITE NEGATIVE LEUK SCREEN NEGATIVE MICRO INDICATED? NOT INDICATED History Of Immunizations Name Date Admin Mfg Name Mfg Code Trade Name Lot# Route Inj Vis Given Vis Pub CVX Influenza 07/02/2009 Not Entered NE Not Entered Not Entered Not Entered 10/05/2019 10/05/2019 999 X 04/12/2009 [employer] MSD PNEUMOVAX 23 Intramus cular Not Entered 10/05/2019 10/05/2019 999 Tdap 07/16/2015 GlaxoSmithKline SKB BOOSTRIX [id number] Intramuscula r Right Deltoid 07/16/2015 02/10/2013 115 History of Past Illness Name Date of Onset Comments Cough Oct 24 2009 4:01PM Acute Maxillary Sinusitis Oct 24 2009 4:01PM Wheezing Oct 24 2009 4:01PM Calculus Of Kidney Arthritis unspecified Osteopenia Obesity Menopausal Syndrome Hyperlipidemia Allergic rhinitis Migraine Fibrocystic Disease Of Breast lumbar back pain Insomnia, unspecified Restless Legs Cough Nov 07 2009 2:09PM Acute Pansinusitis Nov 07 2009 2:09PM Cough Dec 05 2009 4:48PM Hyperlipidemia Apr 12 2010 3:31PM Glucose Intolerance May 09 2010 2:18PM Allergic Rhinitis May 16 2010 4:20PM Hyperlipidemia May 16 2010 4:20PM Insomnia, unspecified May 16 2010 4:20PM Obesity May 16 2010 4:20PM Osteopenia May 16 2010 4:20PM Restless Legs May 16 2010 4:20PM Lumbar spinal stenosis 06/28/2014 Sebaceous Cyst Aug 27 2010 8:22AM Actinic keratoses 11/30/2014 Solar lentigo 11/30/2014 Seborrheic keratosis 11/30/2014 Chronic Cough Oct 15 2010 3:33PM Cough Oct 15 2010 4:04PM Bronchitis, Acute Oct 15 2010 4:04PM Otalgia Nov 07 2010 1:47PM Otitis Media, Acute Nov 07 2010 1:47PM Otalgia Nov 18 2010 11:03AM Otitis Media, Acute Nov 18 2010 11:03AM Low Back Pain Apr 28 2011 2:47PM Cystitis, Acute Jun 03 2011 3:18PM Hyperlipidemia Jun 03 2011 3:18PM Elevated Blood Pressure Without Diagnosis Of Hypertension Au 2010 3:18PM Dysuria Jun 03 2011 4:45PM Anxiety state; other May 07 2011 4:57PM Urticaria May 07 2011 4:57PM Nevus 02/26/2018 Pruritus Sep 12 2011 10:29AM Colon Cancer Screening 01/18/2019 Anxiety state; other Aug 14 2011 3:10PM Abdominal Pain Oct 28 2011 4:17PM Urticaria Jan 08 2012 3:45PM Urticaria Jan 13 2012 9:09AM Upper Respiratory Infection Nov 28 2011 1:42PM Urticaria Mar 04 2012 3:01PM Dysuria Mar 10 2012 11:14AM Urticaria May 04 2012 4:42PM Hyperglycemia May 04 2012 4:42PM Pain in foot Jun 16 2012 2:05PM Osteoporosis Dec 01 2012 1:16PM Osteopenia Dec 29 2012 11:32AM Upper Respiratory Infections Jan 10 2013 1:35PM Osteopenia Jul 05 2013 1:33PM Left Otitis Media, Acute Jul 20 2013 10:33AM Upper Respiratory Infections Jul 20 2013 10:33AM Insomnia Jul 20 2013 10:33AM History of osteopenia Apr 28 2014 12:01PM Hyperlipidemia Jun 28 2014 9:46AM Insomnia, unspecified Jun 28 2014 9:46AM Menopausal Syndrome Jun 28 2014 9:46AM Osteopenia Jun 28 2014 9:46AM Lumbar spinal stenosis Jun 28 2014 9:46AM Routine gynecological examination Aug 17 2014 2:12PM Lumbar spinal stenosis Oct 18 2014 11:23AM Arthritis unspecified Oct 18 2014 11:23AM Hyperlipidemia Oct 18 2014 11:23AM Insomnia, unspecified Oct 18 2014 11:23AM Menopausal Syndrome Oct 18 2014 11:23AM Osteopenia Oct 18 2014 11:23AM Restless Legs Oct 18 2014 11:23AM Actinic keratoses Nov 30 2014 9:23AM Solar lentigo Nov 30 2014 9:23AM Seborrheic keratosis Nov 30 2014 9:23AM Osteopenia Dec 26 2014 1:07PM Screening Mammogram Jun 18 2015 3:57PM Osteopenia Jul 09 2015 8:09AM Flu Jul 16 2015 2:59PM Need for Tdap vaccination Jul 16 2015 2:59PM Lumbar spinal stenosis Nov 14 2015 1:39PM Allergic rhinitis Nov 14 2015 1:39PM Hyperlipidemia Nov 14 2015 1:39PM Osteopenia Nov 14 2015 1:39PM Restless Legs Nov 14 2015 1:39PM BMI 34.0-34.9,adult Nov 14 2015 1:39PM Elevated glucose Nov 15 2015 1:32PM Lumbar spinal stenosis Jan 09 2016 1:58PM Osteopenia Feb 27 2016 2:47PM Dysuria Feb 29 2016 9:11AM Acute cystitis without hematuria Feb 29 2016 11:30AM Lumbar spinal stenosis Feb 29 2016 11:30AM Spondylolisthesis at L4-L5 level Mar 27 2016 9:53AM Dysuria Mar 27 2016 2:44PM Urticaria Mar 26 2016 3:17PM Hives Apr 04 2016 6:03PM Hives Apr 13 2016 1:41PM Hives May 22 2016 3:04PM Hives May 22 2016 4:40PM Vomiting and diarrhea Jul 09 2016 5:20PM Pyelonephritis Improving Jul 21 2016 2:45PM Frequent UTI Jul 21 2016 2:45PM Resolved Urticaria Jul 21 2016 2:45PM Encounter for screening mammogram for breast cancer Aug 04 016 11:50AM Routine gynecological examination Aug 05 2016 8:30AM Osteopenia Aug 05 2016 8:30AM Encounter for screening mammogram for breast cancer Aug 05 016 8:30AM Primary osteoarthritis of both knees Aug 05 2016 8:30AM Acute bronchitis due to other specified organisms Aug 12 201 6 1:32PM Cough present for greater than 3 weeks Sep 08 2016 11:24AM Osteopenia Apr 13 2017 1:48PM Lumbar spinal stenosis Oct 06 2017 1:28PM Chronic seasonal allergic rhinitis due to pollen Oct 06 2017 1:28PM Mixed hyperlipidemia Oct 06 2017 1:28PM Fatigue, unspecified type Oct 06 2017 1:28PM Acute upper respiratory infection Oct 08 2017 10:04AM Hyperglycemia Oct 08 2017 3:59PM Frequency of urination Jan 03 2018 1:16PM Low back pain Jan 03 2018 1:16PM Nevus Feb 26 2018 9:58AM Seborrheic keratosis Feb 26 2018 9:22AM Lumbar spinal stenosis Apr 20 2018 1:21PM Neuropathy Apr 20 2018 1:21PM Lumbago Jun 29 2018 11:18AM Spondylolisthesis at L4-L5 level Jun 29 2018 11:18AM Lumbar stenosis Jun 29 2018 11:18AM Lumbar radiculopathy Jun 29 2018 11:18AM Spondylisthesis Jun 30 2018 2:01PM Preop examination Jun 30 2018 2:01PM Acute cystitis without hematuria Jul 05 2018 7:16PM Dysuria Jul 15 2018 3:40PM Urinary Frequency Jul 16 2018 5:37PM Lumbar spinal stenosis Jul 26 2018 11:39AM Lumbar stenosis Aug 02 2018 11:04AM S/P lumbar fusion Aug 24 2018 9:51AM S/P lumbar fusion Dec 06 2018 10:38AM Colon cancer screening Jan 11 2019 3:01PM Lumbar spinal stenosis Mar 14 2019 1:50PM Allergic rhinitis Mar 14 2019 1:50PM Hyperlipidemia Mar 14 2019 1:50PM Insomnia, unspecified Mar 14 2019 1:50PM Obesity Mar 14 2019 1:50PM Osteopenia Mar 14 2019 3:45PM S/P lumbar spinal fusion Mar 22 2019 8:56AM S/P lumbar spinal fusion Aug 16 2019 3:42PM Right hand pain Aug 30 2019 11:45AM Compression fracture of twelfth thoracic vertebra Oct 18 202 0 10:22AM Compression fracture of third lumbar vertebra, sequela Oct 052019 10:22AM S/P lumbar fusion Oct 18 2019 10:22AM Compression fracture of twelfth thoracic vertebra Oct 19 202 0 3:43PM Compression fracture of third lumbar vertebra, sequela Oct 052019 3:43PM S/P lumbar fusion Oct 19 2019 3:43PM Pre-op exam Dec 07 2019 10:36AM Payers Insurance Name Company Name Plan Name Plan Number Policy Number Sanjay cy Group Number Start Date Medicare [facility] Medicare [facility] [id number] N/ A Claims Administration Claims Administration [id number] N/A [id number] 2013 Medicare Part A Medicare Part A [id number] Friday, 2013 [employer] [id number] N/A Medicare Part B Medicare [place] [id number] Friday, 2013 [place] [facility] [address] [id number] N/A Medicare Part A [id number] P A - Preventive [id number] N/A Medicare [facility] Medicare [facility] [id number] N/A Medicare Part A Medicare - Lab/Xray [id number] N/A Medicare Part B Medicare [place] [id number] N/A History of Encounters Visit Date Visit Type Provider 12/07/2019 Office visit Jada Pulliam CONTAINER FILLER 10/18/2019 Office visit Chadd Lucio MD 07/02/2019 [facility] Jessica Dhaliwal MD 03/22/2019 Office visit Chadd Lucio MD 03/14/2019 Office visit Jada Heraclio CONTAINER FILLER 02/07/2019 Surgery Hermilo Bouman DO 01/11/2019 Office visit Hermilo Bouman DO 08/24/2018 Office visit Chadd Lucio MD 08/02/2018 Procedures Chadd Lucio MD 07/19/2018 [facility] Chadd Lucio MD 07/16/2018 Office visit Jasmyn LOCKHART RN 07/12/2018 [facility] Jessica Dhaliwal MD 07/05/2018 Office visit Matt Rice APR N 06/29/2018 Office visit Chadd Lucio MD 04/20/2018 Office visit Jada Walker CONTAINER FILLER 03/19/2018 Procedures Hermilo Bouman DO 03/12/2018 Procedures Hermilo Bouman DO 02/26/2018 Procedures Hermilo Bouman DO 01/03/2018 Office visit Katharina Kumar [place] APR N 10/08/2017 Office visit Jada Walker CONTAINER FILLER 10/06/2017 Office visit Jada Walker CONTAINER FILLER 10/07/2016 [facility] Jessica Dhailwal MD 08/12/2016 Office visit Jada Walker CONTAINER FILLER 08/05/2016 Office visit Jada Walker CONTAINER FILLER 07/21/2016 Office visit Jada Walker CONTAINER FILLER 07/10/2016 [facility] Sage Green MD 07/09/2016 Office visit Valorie MCCLURE 07/09/2016 [facility] Jessica Dhaliwal MD 05/22/2016 Nurse visit Jada Walker CONTAINER FILLER 04/13/2016 Office visit Katharina LGuy [place] APR N 04/04/2016 Nurse visit Jada Walker CONTAINER FILLER 03/26/2016 Office visit Jada Walker CONTAINER FILLER 02/29/2016 Office visit Jada Walker CONTAINER FILLER 01/09/2016 Office visit Jada Walker CONTAINER FILLER 11/14/2015 Office visit Jada Walker CONTAINER FILLER 07/16/2015 Nurse visit Jada Walker CONTAINER FILLER 11/30/2014 Office visit Sharon Villanueva 10/18/2014 Office visit Jada Walker CONTAINER FILLER 08/17/2014 Office visit Jaylene Rebolledo MD 06/28/2014 Office visit Jada Pulliam CONTAINER FILLER 06/01/2014 Office visit Sharon Villanueva 04/28/2014 Nurse visit Jada Pulliam CONTAINER FILLER 07/20/2013 Office visit Jada Pulliam CONTAINER FILLER 07/05/2013 Nurse visit Jada Pulliam CONTAINER FILLER 01/10/2013 Office visit Jada Pulliam CONTAINER FILLER 12/29/2012 Nurse visit Jada Pulliam CONTAINER FILLER 06/16/2012 Office visit Jada Pulliam CONTAINER FILLER 05/04/2012 Office visit Jada Pulliam CONTAINER FILLER 03/10/2012 Office visit Jada Pulliam CONTAINER FILLER 03/04/2012 Office visit Jada Pulliam CONTAINER FILLER 01/13/2012 Office visit Ezequiel Mahan MD 01/08/2012 Nurse visit Mikki Carrasco MD 12/16/2011 Voided Ezequiel Mahan MD 11/28/2011 Office visit Ezequiel Mahan MD 10/28/2011 Office visit Jada Pulliam CONTAINER FILLER 08/14/2011 Office visit Ezequiel Mahan MD 08/07/2011 Nurse visit Ezequiel Mahan MD 06/03/2011 Office visit Jada Pulliam CONTAINER FILLER 05/07/2011 Office visit Ezequiel Mahan MD 04/28/2011 Voided Ezequiel Mahan MD 11/18/2010 Office visit Braydon Ramirez DO 11/07/2010 Office visit Braydon Ramirez DO 10/15/2010 Office visit Braydon Ramirez DO 08/27/2010 Office visit Hillary WEST 05/16/2010 Office visit Braydon Ramirez DO 12/05/2009 Office visit Braydon Ramirez DO 11/07/2009 Office visit Braydon Ramirez DO 10/24/2009 Office visit Braydon Ramirez DO 08/16/2009 Office visit Braydon Ramirez DO 08/15/2009 Laboratory Braydon Ramirez DO 07/02/2009 Office visit Braydon Ramirez DO
--- OUTSIDE RECORDS SUMMARY | 2019-12-14 17:36 | XMS REPORT ---
Author Shandar Yepez Organization [facility] oup Address [address] [place] [id number] Care Team Providers Care Checkout Operator Name Role Phone Chadd Lucio PCP Jada Pulliam PreferredProvider Allergies and Adverse Reactions Name Reaction Notes ciprofloxacin migraine codeine sulfate Plan of Treatment Planned Activity Comments Planned Date Planned Time Plan/Goal Urine Culture, [place] Count 03/04/2016 12:00 AM Osteoporosis and fracture Fracture T12 and L3 lumbar pain 12/17/2015 2:00 PM consult for frequent UTI Mammography; bilateral 06/18/2015 [...] Zyrtec-D 5-120 mg oral tablet extended release hr 09/09/2016 10/06/2017 take 1 tablet by [...] keratosis Active 11/30/2014 Nevus Active 02/26/2018 Colon cancer screening Active 01/18/2019 Vital Signs Date Time BP-Sys(mm[Hg] BP-Rekha(mm[Hg]) HR(bpm) RR(rpm) Temp WT HT HC BMI BSA BMI Percentile O2 Sat(%) 10/18/2019 10:13:00 AM 130 mm[Hg] 80 mm[Hg] 77 {beats}/min 96.8 F 208 lbs 68 in 31.626 kg/m2 2.1276 m2 96 % 03/22/2019 8:52:00 AM 120 mm[Hg] 84 mm[Hg] 87 {beats}/min 98.9 F 225.312 lbs 68 in 34.26 kg/m2 2.21 m2 97 % 03/14/2019 1:48:00 PM 116 mm[Hg] 70 mm[Hg] 80 {beats}/min 18 rpm 98.1 F 224 lbs 68 in 34.0587 kg/m2 2.2079 m2 99 % 01/11/2019 2:59:00 PM 170 mm[Hg] 82 mm[Hg] 72 {beats}/min 20 rpm 97.6 F 222 lbs 68 in 33.75 kg/m2 2.20 m2 08/24/2018 9:47:00 AM 126 mm[Hg] 84 mm[Hg] 99 {beats}/min 98.1 F 238 lbs 68 in 36.1874 kg/m2 2.2758 m2 97 % 07/16/2018 5:30:00 PM 150 mm[Hg] 100 mm[Hg] 94 {beats}/min 18 rpm 97.8 F 229.25 lbs 68 in 34.86 kg/m2 2.23 m2 96 % 07/05/2018 7:10:00 PM 162 mm[Hg] 88 mm[Hg] 104 {beats}/min 97.9 F 230 lbs 68 in 34.971 kg/m2 2.2373 m2 95 % 06/29/2018 11:16:00 AM 136 mm[Hg] 76 mm[Hg] 105 {beats}/min 98.9 F 225.5 lbs 68 in 34.29 kg/m2 2.22 m2 95 % 04/20/2018 1:19:00 PM 126 mm[Hg] 72 mm[Hg] 70 {beats}/min 18 rpm 98.1 F 223.5 lbs 68 in 33.9827 kg/m2 2.2054 m2 95 % 03/19/2018 1:36:00 PM 129 mm[Hg] 78 mm[Hg] 68 {beats}/min 20 rpm 97.5 F 222 lbs 68 in 33.7546 kg/m2 2.20 m2 03/12/2018 10:36:00 AM 129 mm[Hg] 78 mm[Hg] 68 {beats}/min 20 rpm 97.5 F 222.5 lbs 68 in 33.83 kg/m2 2.2005 m2 02/26/2018 9:58:00 AM 147 mm[Hg] 86 mm[Hg] 60 {beats}/min 20 rpm 97.6 F 221 lbs 68 in 33.6026 kg/m2 2.19 m2 01/03/2018 1:13:00 PM 138 mm[Hg] 88 [...] 02/29/2016 12:00 AM Rocephin 1 gram [facility]#3472-5134-01 Reviewe d 03/27/2016 12:00 AM INJECT SPINE LUMBAR/SACRAL Reviewed 03/27/2016 12:00 AM URNLS DIP STICK/TABLET RGNT AUTO W/O KATHRIN ROSCOPY Reviewed 03/26/2016 12:00 AM Benadryl, Up to 50 Mg [facility]# 6379-5062-70 Reviewed 04/04/2016 12:00 AM IMMUNOTHERAPY ONE INJECTION Reviewed 10/29/2011 12:00 AM URINALYSIS AUTO W/O SCOPE Reviewed 10/28/2011 12:00 AM COMPLETE CBC W/AUTO DIFF WBC Reviewed 10/28/2011 12:00 AM COMPREHEN METABOLIC PANEL Reviewed 10/28/2011 12:00 AM URINE CULTURE/COLONY COUNT Reviewed 05/22/2016 12:00 AM ALLERGEN SPECIFIC IGE Reviewed 05/22/2016 12:00 AM Decadron, Per 1 Mg [facility]# [address]-61 Re viewed 05/22/2016 12:00 AM Depo-Medrol 40mg [...] 01/08/2012 12:00 AM Depo-Medrol 40 mg [facility]#[id number] Reviewe d 09/08/2016 12:00 AM METABOLIC PANEL TOTAL CA Reviewed 09/08/2016 12:00 AM COMPLETE CBC W/AUTO DIFF WBC Reviewed 09/08/2016 12:00 AM RADIOLOGIC EXAM CHEST 2 VIEWS FRONTAL&LA TERAL Reviewed 04/13/2016 12:00 AM Depo-Medrol, Per 80 Mg [facility]#[address]-76 Reviewed 04/13/2016 12:00 AM Decadron, Per 1 Mg [facility]# [address]-26 Re viewed 04/13/2016 12:00 AM THER/PROPH/DIAG INJ [...] 01/10/2013 12:00 AM Decadron, Per 1 Mg NDC# [address]-23 Re viewed 01/10/2013 12:00 AM Depo-Medrol, Per 80 Mg NDC#0911-8387-41 Reviewed 06/30/2018 12:[address] LUMBAR SPINE [...] STICK/TABLET RGNT AUTO W/O KATHRIN ROSCOPY Reviewed 07/26/2018 12:00 AM RADEX SPINE LUMBOSACRAL 2/3 VIEWS Return ed 08/02/2018 12:00 AM REMOVE SUTURES SAME SURGEON Reviewed 07/05/2013 12:00 AM Prolia, 60 Mg Reviewed 12/06/2018 12:00 AM RADEX SPINE LUMBOSACRAL 2/3 VIEWS Return ed 07/20/2013 12:00 AM THER/PROPH/DIAG INJ SC/IM Reviewed 07/20/2013 12:00 AM Depo-Medrol, Per 80 Mg NDC#9618-4870-39 Reviewed 07/20/2013 12:00 AM Decadron, Per 1 Mg ND# [address]-92 Re viewed 03/14/2019 12:00 AM DXA BONE [...] AM MRI LUMBAR SPINE W/O DYE Returned 05/13/2010 12:00 AM COMPREHEN METABOLIC PANEL [...] Reviewed 10/24/2009 12:00 AM Kenalog 40 Mg [facility]#6255-0106-36 Review ed 11/30/2014 12:00 AM DESTRUCT PREMALG [...] CULT SET UP? YES 05/22/2016 3:30 PM Q532-QiA D pteronyssinus <0. 10 U/yHB163-SuP D farinae <0.10 U/rJD448-KyW Cat Dander <0.10 A235-JtT Dog Dander <0.10 U/tRR671-VyA Berm[place] Grass <0.10 U/eEO503-ExG Bluegrass,[facility] <0.10 U/fEM308-SfN [place] Grass <0.10 U/uXC383-LhW Cockroach,Grenadian <0.10 J207-NyO Penicilliumchrysogen <0.10 D231-NsT Cladosporiumherbarum <0.10 D095-SfN Aspergillusfumigatus <0.10 F170-YnR Mucor racemosus <0.10 V296-VvD Alternariaalternata <0.10 P215-CjY Stemphyliumherbarum <0.10 K200-DsA Maple/[place] <0.10 U/eOY272-OsT [place], White <0.10 U/xXE499-GgS Elm, Grenadian <0.10 U/yNI477-LsQ Red [place] <0.10 U/zZF837-MdP [place], White <0.10 U/eDA233-UzT Maple LeafSycamore <0.10 U/zHQ892-CaL [place] <0.10 U/fYW125-MpG Ragweed, Short <0.10 Y217-EfP [place] <0.10 W009- IgE Plantain,Korean <0.10 Q941-FlH Thistle, Tristanian <0.10 I795-WjC Pigweed, Common <0.10 J728-SbW Sheep [place] <0.10 G891-MzQ Milk <0.10 D578-YlV Wheat <0.10 U/wWL475-VrP [place] <0.10 U/eXX664-LpP Peanut <0.10 U/wZC533-TpM Soybean <0.10 U/kYH483-KkV Pork <0.10 U/wLW079-TyG Beef <0.10 U/jNSI65-ZfW Food Mix(Seafoods) Negative N243-EnV Egg, Whole <0.10 U/kTB853-MqT Chocolate/[place] <0.10 07/21/2016 3:26 PM GLUCOSE 104.0 mg/dLSODIUM [...] 02/26/2018 [place] Sep 12 2011 10:29AM Colon cancer screening 01/18/2019 Anxiety state; other Aug 14 2011 [...] screening mammogram for breast cancer Aug 05 8:30AM Primary osteoarthritis of both knees Aug [...] S/P lumbar fusion Oct 19 2019 3:43PM Payers Insurance Name Company Name Plan Name Plan Number Policy Number Sanjay cy Group Number Start Date Medicare Part B Medicare Of [place] [id number] N/A Claims Administration Claims Administration [id number] N/A Medicare RHC Medicare RHC [id number] N/ A [id number] 2013 Medicare Part A Medicare Part A [id number] Friday, 2013 [facility] [employer] [place] Retriement [id number] N/A Medicare Part B Medicare [place] [id number] Friday, 2013 [place] [employer] Insurance [facility] Gren[place] Life Ins [id number] N/A Medicare Part A ZZZMedicare P A - Preventive [id number] N/A Medicare RH Medicare [facility] [id number] N/A Medicare Part A Medicare - Lab/Xray [id number] N/A History of Encounters Visit Date Visit Type Provider 10/18/2019 Office visit Chadd Lucio MD 07/02/2019 [facility] Jessica Dhaliwal MD 03/22/2019 Office visit Chadd Lucio MD 03/14/2019 Office visit Jada Pulliam APRN 02/07/2019 Surgery Hermilo Gallego DO 01/11/2019 Office visit Hermilo Bouman DO 08/24/2018 Office visit Chadd Lucio MD 08/02/2018 Procedures Chadd Lucio MD 07/19/2018 Hospital Chadd Lucio MD 07/16/2018 Office visit Jasmyn LOCKHART RN 07/12/2018 [facility] Jessica Dhaliwal MD 07/05/2018 Office visit Matt Rice APR N 06/29/2018 Office visit Chadd Lucio MD 04/20/2018 Office visit Jada Walker OFFICE CHAIR ASSEMBLER 03/19/2018 Procedures Hermilo Bouman DO 03/12/2018 Procedures Hermilo Bouman DO 02/26/2018 Procedures Hermilo Bouman DO 01/03/2018 Office visit Katharina Kumar [place] APR N 10/08/2017 Office visit Jada Walker OFFICE CHAIR ASSEMBLER 10/06/2017 Office visit Jada Walker OFFICE CHAIR ASSEMBLER 10/07/2016 [facility] Jessica Dhaliwal MD 08/12/2016 Office visit Jada Walker OFFICE CHAIR ASSEMBLER 08/05/2016 Office visit Jada Walker OFFICE CHAIR ASSEMBLER 07/21/2016 Office visit Jada Walker OFFICE CHAIR ASSEMBLER 07/10/2016 [facility] Sage Green MD 07/09/2016 Office visit Valorie MCCLURE 07/09/2016 [facility] Jessica Dhaliwal MD 05/22/2016 Nurse visit Jada Walker OFFICE CHAIR ASSEMBLER 04/13/2016 Office visit Katharina Kumar [place] APR N 04/04/2016 Nurse visit Jada Walker OFFICE CHAIR ASSEMBLER 03/26/2016 Office visit Jada Walker OFFICE CHAIR ASSEMBLER 02/29/2016 Office visit Jada Walker OFFICE CHAIR ASSEMBLER 01/09/2016 Office visit Jada Walker OFFICE CHAIR ASSEMBLER 11/14/2015 Office visit Jada Walker OFFICE CHAIR ASSEMBLER 07/16/2015 Nurse visit Jada Walker OFFICE CHAIR ASSEMBLER 11/30/2014 Office visit Sharon Villanueva 10/18/2014 Office visit Jada Walker OFFICE CHAIR ASSEMBLER 08/17/2014 Office visit Jaylene Rebolledo MD 06/28/2014 Office visit Jada Walker OFFICE CHAIR ASSEMBLER 06/01/2014 Office visit Sharon Villanueva 04/28/2014 Nurse visit Jada Walker OFFICE CHAIR ASSEMBLER 07/20/2013 Office visit Jada Walker OFFICE CHAIR ASSEMBLER 07/05/2013 Nurse visit Jada Walker OFFICE CHAIR ASSEMBLER 01/10/2013 Office visit Jada Walker OFFICE CHAIR ASSEMBLER 12/29/2012 Nurse visit Jada Walker OFFICE CHAIR ASSEMBLER 06/16/2012 Office visit Jada Walker OFFICE CHAIR ASSEMBLER 05/04/2012 Office visit Jada Walker OFFICE CHAIR ASSEMBLER 03/10/2012 Office visit Jada Pulliam OFFICE CHAIR ASSEMBLER 03/04/2012 Office visit Jada Heraclio OFFICE CHAIR ASSEMBLER 01/13/2012 Office visit Ezequiel Mahan MD 01/08/2012 Nurse visit Mikki Carrasco MD 12/16/2011 Voided Ezequiel Mahan MD 11/28/2011 Office visit Ezequiel Mahan MD 10/28/2011 Office visit Jada Pulliam OFFICE CHAIR ASSEMBLER 08/14/2011 Office visit Ezequiel Mahan MD 08/07/2011 Nurse visit Ezequiel Mahan MD 06/03/2011 Office visit Jada Pulliam OFFICE CHAIR ASSEMBLER 05/07/2011 Office visit Ezequiel Mahan MD 04/28/2011 [...]
--- OUTSIDE RECORDS SUMMARY | 2019-12-14 17:37 | XMS REPORT ---
Author Author Shandra Lucio Organization [facility] o[facility] Address [address] [place] [id number] Care Team Providers Care Sleeper Cutter Name Role Phone Chadd Lucio PCP Jada Pulliam PreferredProvider Allergies and Adverse Reactions Name Reaction Notes ciprofloxacin migraine codeine sulfate Plan of Treatment Planned Activity Comments Planned Date Planned Time Plan/Goal Urine Culture, [place] Count 03/04/2016 12:00 AM lumbar pain 12/17/2015 2:00 PM DEXA 03/14/2019 12:00 AM consult for frequent UTI Mammography; [...] 1 cap eliane by oral route daily tretinoin 0.025 % topical cream 01/10/2016 APPLY CREAM TO AFFECTED AREA ONCE DAILY AT BEDTIME Leighann-D 12 Hour 60-120 mg oral tablet extended release 12 hr take 1 tablet by oral route 2 times per day multivitamin oral tablet take 1 tablet by oral route daily Vitamin D3 5,000 unit oral tablet take 1 tablet by oral route daily cranberry 500 mg oral capsule take 1 caps ule by oral route daily estradiol 0.01 % (0.1 mg/gram) vaginal cream 07/09/2018 INSERT ONE APPLICATORFUL VAGINALLY TWICE A WEEK atorvastatin 40 mg oral tablet 11/05/2018 T KINDRA 1 TABLET BY MOUTH ONCE DAILY AT BEDTIME Voltaren 1 % topical gel 03/14/2019 apply 2 gram to the affected area(s) by topical route 4 times per day Name Start Date Expiration Date SIG Comments [...] every 6 hours as needed for pain hydrocodone-acetaminophen 7.5-325 mg oral tablet 02/29/2016 10/06/2017 [...] by oral route 3 times a day Problem List Description Status Onset Allergic rhinitis [...] HC BMI BSA BMI Percentile O2 Sat(%) 03/22/2019 8:52:00 AM 120 mmHg 84 mmHg 87 bpm 98.9 F 225.312 lbs 68 i n 34.2583 kg/m 2.2144 m 97 % 03/14/2019 1:48:00 PM 116 mmHg 70 mmHg 80 bpm 18 rpm 98.1 F 224 lbs 68 in 34.06 kg/m2 2.21 m2 99 % 01/11/2019 2:59:00 PM 170 mmHg 82 mmHg 72 bpm 20 rpm 97.6 F 222 lbs 68 in 33.7546 kg/m 2.198 m 08/24/2018 9:47:00 AM 126 mmHg 84 mmHg 99 bpm 98.1 F 238 lbs 68 in 36.19 kg/m2 2.28 m2 97 % 07/16/2018 5:30:00 PM 150 mmHg 100 mmHg 94 bpm 18 rpm 97.8 F 229.25 lbs 68 in 34.857 kg/m 2.2336 m 96 % 07/05/2018 7:10:00 PM 162 mmHg 88 mmHg 104 bpm 97.9 F 230 lbs 68 in 34.97 kg/m2 2.24 m2 95 % 06/29/2018 11:16:00 AM 136 mmHg 76 mmHg 105 bpm 98.9 F 225.5 lbs 68 i n 34.2868 kg/m 2.2153 m 95 % 04/20/2018 1:19:00 PM 126 mmHg 72 mmHg 70 bpm 18 rpm 98.1 F 223.5 lbs 68 in 33.98 kg/m2 2.21 m2 95 % 03/19/2018 1:36:00 PM 129 mmHg 78 mmHg 68 bpm 20 rpm 97.5 F 222 lbs 68 in 33.7546 kg/m 2.198 m 03/12/2018 10:36:00 AM 129 mmHg 78 mmHg 68 bpm 20 rpm 97.5 F 222.5 lbs 68 in 33.83 kg/m2 2.20 m2 02/26/2018 9:58:00 AM 147 mmHg 86 mmHg 60 bpm 20 rpm 97.6 F 221 lbs 68 in 33.6026 kg/m 2.1931 m 01/03/2018 1:13:00 PM 138 mmHg 88 mmHg 84 bpm 16 rpm 96.2 F 231 lbs 68 in 35.12 kg/m2 2.24 m2 94 % 10/08/2017 10:04:00 AM 138 mmHg 78 mmHg 78 bpm 18 rpm 98.8 F 226.5 lbs 68 in 34.4389 kg/m 2.2202 m 95 % 10/06/2017 1:26:00 PM 130 mmHg 78 mmHg 86 bpm 18 rpm 98.4 F 232.5 lbs 68 in 35.35 kg/m2 2.25 m2 96 % 08/12/2016 1:30:00 PM 136 mmHg 74 mmHg 87 bpm 18 rpm 98 F 218.25 lbs 68 in 33.1845 kg/m 2.1794 m 96 % 08/05/2016 8:28:00 AM 100 mmHg 60 mmHg 80 bpm 18 rpm 98.4 F 219 lbs 68 in 33.30 kg/m2 2.18 m2 95 % 07/21/2016 2:43:00 PM 124 mmHg 62 mmHg 86 bpm 18 rpm 98 F 216 lbs 68 in 32.8424 kg/m 2.1681 m 94 % 07/09/2016 5:16:00 PM 124 mmHg 90 mmHg 130 bpm 98.2 F 214 lbs 68 in 32.54 kg/m2 2.16 m2 96 % 04/13/2016 1:38:00 PM 122 mmHg 77 mmHg 87 bpm 18 rpm 99.3 F 224 lbs 68 in 34.0587 kg/m 2.2079 m 95 % 03/26/2016 3:14:00 PM 138 mmHg 78 mmHg 94 bpm 18 rpm 98.5 F 226.25 lbs 68 i n 34.40 kg/m2 2.22 m2 97 % 02/29/2016 11:28:00 AM 136 mmHg 78 mmHg 95 bpm 18 rpm 100.1 F 227.062 lbs 97 % 01/09/2016 1:53:00 PM 122 mmHg 76 mmHg 87 bpm 18 rpm 97.3 F 227 lbs 68 in 34.5149 kg/m 2.2226 m 97 % 11/14/2015 1:37:00 PM 134 mmHg 72 mmHg 80 bpm 18 rpm 97.3 F 227 lbs 68 in 34.51 kg/m2 2.22 m2 97 % 10/18/2014 11:18:00 AM 128 mmHg 86 mmHg 70 bpm 18 rpm 97.7 F 209.375 lbs 68 in 31.835 kg/m 2.1346 m 98 % 08/17/2014 2:11:00 PM 154 mmHg 77 mmHg 64 bpm 98.2 F 215.5 lbs 68 in 32.77 kg/m2 2.17 m2 06/28/2014 9:44:00 AM 134 mmHg 72 mmHg 74 bpm 18 rpm 98.2 F 223.25 lbs 68 i n 33.9447 kg/m 2.2042 m 96 % 07/20/2013 10:31:00 AM 132 mmHg 68 mmHg 71 bpm 18 rpm 97.4 F 231 lbs 68 in 35.12 kg/m2 2.24 m2 96 % 01/10/2013 1:33:00 PM 132 mmHg 68 mmHg 66 bpm 18 rpm 97.9 F 231.125 lbs 68 i n 35.1421 kg/m 2.2427 m 06/16/2012 2:03:00 PM 128 mmHg 72 mmHg 68 bpm 18 rpm 98.8 F 229.25 lbs 68 i n 34.86 kg/m2 2.23 m2 05/04/2012 4:40:00 PM 134 mmHg 68 mmHg 66 bpm 18 rpm 98.9 F 236.375 lbs 68 in 35.9403 kg/m 2.2681 m 03/10/2012 11:12:00 AM 128 mmHg 64 mmHg 66 bpm 18 rpm 226 lbs 68 in 34.36 kg/m2 2.22 m2 03/04/2012 2:59:00 PM 134 mmHg 68 mmHg 66 bpm 18 rpm 98 F 229.25 lbs 68 in 34.857 kg/m 2.2336 m 01/13/2012 9:08:00 AM 140 mmHg 90 mmHg 107 bpm 97.4 F 232 lbs 96 % 12/16/2011 3:48:00 PM 97 F 234 lbs 11/28/2011 1:39:00 PM 118 mmHg 75 mmHg 84 bpm 98.6 F 97 % 10/28/2011 4:15:00 PM 130 mmHg 78 mmHg 66 bpm 18 rpm 98.8 F 236.125 lbs 68 in 35.9023 kg/m 2.2669 m 08/14/2011 3:14:00 PM 130 mmHg 80 mmHg 69 bpm 97.9 F 234.375 lbs 97 % 06/03/2011 3:18:00 PM 142 mmHg 86 mmHg 94 bpm 97.4 F 227 lbs 05/07/2011 4:59:00 PM 140 mmHg 88 mmHg 87 bpm 97.9 F 225.125 lbs 97 % 04/28/2011 2:48:00 PM 118 mmHg 88 mmHg 77 bpm 97.2 F 229 lbs 96 % 11/18/2010 11:00:00 AM 120 mmHg 80 mmHg 64 bpm 16 rpm 98.4 F 222.25 lbs 68 in 33.7927 kg/m 2.1993 m 94 % 11/07/2010 1:41:00 PM 130 mmHg 88 mmHg 66 bpm 18 rpm 98.8 F 225 lbs 68 in 34.21 kg/m2 2.21 m2 95 % 10/15/2010 4:06:00 PM 140 mmHg 90 mmHg 67 bpm 18 rpm 98.7 F 223.375 lbs 68 in 33.9637 kg/m 2.2048 m 96 % 08/27/2010 8:15:00 AM 128 mmHg 78 mmHg 64 bpm 16 rpm 96.8 F 225.5 lbs 05/16/2010 4:17:00 PM 150 mmHg 88 mmHg 88 bpm 16 rpm 98.3 F 231 lbs 68 in 35.1231 kg/m 2.2421 m 97 % 12/05/2009 4:39:00 PM 140 mmHg 100 mmHg 83 bpm 18 rpm 98.4 F 228.125 lbs 68 in 34.69 kg/m2 2.23 m2 98 % 11/07/2009 2:02:00 PM 120 mmHg 86 mmHg 77 bpm 18 rpm 98.8 F 230 lbs 68 in 34.971 kg/m 2.2373 m 99 % 10/24/2009 3:58:00 PM 110 mmHg 80 mmHg 80 bpm 18 rpm 97.6 F 229 lbs 68 [...] Reviewed 02/29/2016 12:00 AM Rocephin 1 gram [facility]#0795-5941-05 Reviewe d 03/27/2016 12:00 AM INJECT SPINE LUMBAR/SACRAL Reviewed 03/27/2016 12:00 AM URNLS DIP STICK/TABLET RGNT AUTO W/O KATHRIN ROSCOPY Reviewed 03/26/2016 12:00 AM Benadryl, Up to 50 Mg [facility]# 1070-7743-27 Reviewed 04/04/2016 12:00 AM IMMUNOTHERAPY ONE INJECTION Reviewed 10/29/2011 12:00 AM URINALYSIS AUTO W/O SCOPE Reviewed 10/28/2011 12:00 AM COMPLETE CBC W/AUTO DIFF WBC Reviewed 10/28/2011 12:00 AM COMPREHEN METABOLIC PANEL Reviewed 10/28/2011 12:00 AM URINE CULTURE/COLONY COUNT Reviewed 05/22/2016 12:00 AM ALLERGEN SPECIFIC IGE Reviewed 05/22/2016 12:00 AM Decadron, Per 1 Mg [facility]# [address]-11 Re viewed 05/22/2016 12:00 AM Depo-Medrol 40mg [...] Reviewed 01/08/2012 12:00 AM Depo-Medrol 40 mg [facility]#[id number] Reviewe d 09/08/2016 12:00 AM METABOLIC PANEL TOTAL CA Reviewed 09/08/2016 12:00 AM COMPLETE CBC W/AUTO DIFF WBC Reviewed 09/08/2016 12:00 AM RADIOLOGIC EXAM CHEST 2 VIEWS FRONTAL&LA TERAL Reviewed 04/13/2016 12:00 AM Depo-Medrol, Per 80 Mg [facility]#[address]-51 Reviewed 04/13/2016 12:00 AM Decadron, Per 1 Mg [facility]# [address]-79 Re viewed 04/13/2016 12:00 AM THER/PROPH/DIAG INJ [...] 01/10/2013 12:00 AM Decadron, Per 1 Mg [facility]# [address]-62 Re viewed 01/10/2013 12:00 AM Depo-Medrol, Per 80 Mg [facility]#2269-6643-23 Reviewed 06/30/2018 12:[address] LUMBAR SPINE [...] 07/20/2013 12:00 AM Depo-Medrol, Per 80 Mg [facility]#4948-1427-21 Reviewed 07/20/2013 12:00 AM Decadron, Per 1 Mg [facility]# [address]-91 Re viewed 03/14/2019 12:00 AM COMPLETE CBC W/AUTO DIFF WBC Returned 03/14/2019 12:00 AM COMPREHEN METABOLIC PANEL Returned 03/14/2019 12:00 AM LIPID PANEL Returned 03/14/2019 12:00 AM ASSAY THYROID STIM HORMONE Returned 05/13/2010 12:00 AM COMPREHEN METABOLIC PANEL [...] Reviewed 10/24/2009 12:00 AM Kenalog 40 Mg [facility]#6967-5329-90 Review ed 11/30/2014 12:00 AM DESTRUCT PREMALG [...] HGB 14.50 g /dLHCT 43.60 %MCV 92.0 fLH 30.50 pgMCHC 33.30 g/dLRDW SD 44 RDW [...] NonAA 62 GFR AA 75 eGFR >60 mL/min/1.73meGFR AA* >60 TRIGLYCERIDES 113.0 mg/dLCHOLESTEROL 142.0 mg/dLHDL [...] CULT SET UP? YES 05/22/2016 3:30 PM I870-TtP D pteronyssinus <0. 10 U/zOO221-UaD D farinae <0.10 U/mWZ804-VdD Cat Dander <0.10 K471-WaP Dog Dander <0.10 U/yMB749-VjQ [place] Grass <0.10 U/aDU896-XhS Bluegrass,[facility] <0.10 U/hGL876-VlT [place] Grass <0.10 U/tWH620-CtR Cockroach,Kazakh <0.10 B216-XuB Penicilliumchrysogen <0.10 W125-XxH Cladosporiumherbarum <0.10 M103-WuS Aspergillusfumigatus <0.10 O178-WjS Mucor racemosus <0.10 O646-GmK Alternariaalternata <0.10 F696-UtC Stemphyliumherbarum <0.10 O086-PfA Maple/[place] <0.10 U/rNZ119-WqI [place], White <0.10 U/tHO474-CgG Elm, Kazakh <0.10 U/jGP673-VxO [place] <0.10 U/aSY126-TlG [place], White <0.10 U/rZT148-VvT Maple LeafSycamore <0.10 U/dUH002-HnC [place] <0.10 U/fSG863-YmB Ragweed, Short <0.10 O139-HpP [place] <0.10 W009- IgE Plantain,Kyrgyz <0.10 E232-BsT Thistle, Australian <0.10 W374-QqQ Pigweed, Common <0.10 J127-NdS Sheep [place] <0.10 Q330-OgG Milk <0.10 X840-PjJ Wheat <0.10 U/tZO188-PgS [place] <0.10 U/pVJ246-TiA Peanut <0.10 U/qBD062-VxS Soybean <0.10 U/qKD481-RyR [place]ork <0.10 U/mYI199-UfU Beef <0.10 U/mFNZ14-TtA Food Mix(Seafoods) Negative V500-NkM Egg, Whole <0.10 U/oLY797-ThF Chocolate/[place] <0.10 07/21/2016 3:26 PM GLUCOSE 104.0 mg/dLSODIUM [...] Of Immunizations Name Date Admin Mfg Name Mf Code Trade Name Lot# Route Inj Vis [...] screening mammogram for breast cancer Aug 04 11:50AM Routine gynecological examination Aug 05 2016 [...] lumbar spinal fusion Mar 22 2019 8:56AM Payers Insurance Name Company Name Plan Name Plan Number Policy Number Sanjay cy Group Number Start Date Medicare Part B Medicare Of [place] [id number] N/A [employer] [facility] [place] Life Ins [id number] N/A Medicare Part A ZZZMedicare P A - Preventive [id number] N/A Medicare RHC Medicare RHC [id number] N/A Medicare Part A Medicare - Lab/Xray [id number] N/A BCBS [facility] [id number] July 05, 2013 Medicare Part A Medicare Part A [id number] Friday, July 05, 2013 [facility] Insurance Co [place] Retriement [id number] N/A Medicare Part B Medicare Of [place] [id number] Friday, July 05, 2013 Medicare RHC Medicare RHC [id number] N/ A History of Encounters Visit Date Visit Type Provider 03/22/2019 Office visit Chadd Lucio MD 03/14/2019 Office visit Jada Pulliam ZIPPER SEWING MACHINE OPERATOR 02/07/2019 Surgery Hermilo Gallego DO 01/11/2019 Office visit Hermilo Gallego DO 08/24/2018 Office visit Chadd Lucio MD 08/02/2018 Procedures Chadd Lucio MD 07/19/2018 [facility] Chadd Lucio MD 07/16/2018 Office visit Jasmyn LOCKHART RN 07/12/2018 [facility] Jessica Dhaliwal MD 07/05/2018 Office visit Matt Rice APR N 06/29/2018 Office visit Chadd Lucio MD 04/20/2018 Office visit Jada Pulliam ZIPPER SEWING MACHINE OPERATOR 03/19/2018 Procedures Hermilo Gallego DO 03/12/2018 Procedures Hemrilo Bouman DO 02/26/2018 Procedures Hermilo Julián DO 01/03/2018 Office visit Katharina Murdock APR N 10/08/2017 Office visit Jada Pulliam ZIPPER SEWING MACHINE OPERATOR 10/06/2017 Office visit Jada Pulliam ZIPPER SEWING MACHINE OPERATOR 10/07/2016 [facility] Jessica Dhaliwal MD 08/12/2016 Office visit Jada Pulliam ZIPPER SEWING MACHINE OPERATOR 08/05/2016 Office visit Jada Pulliam ZIPPER SEWING MACHINE OPERATOR 07/21/2016 Office visit Jada Pulliam ZIPPER SEWING MACHINE OPERATOR 07/10/2016 [facility] Sage Green MD 07/09/2016 Office visit Valorie MCCLURE 07/09/2016 [facility] Jessica Dhaliwal MD 05/22/2016 Nurse visit Jada Pulliam ZIPPER SEWING MACHINE OPERATOR 04/13/2016 Office visit Katharina Murdock APR N 04/04/2016 Nurse visit Jada Pulliam ZIPPER SEWING MACHINE OPERATOR 03/26/2016 Office visit Jada Pulliam ZIPPER SEWING MACHINE OPERATOR 02/29/2016 Office visit Jada Pulliam ZIPPER SEWING MACHINE OPERATOR 01/09/2016 Office visit Jada Pulliam ZIPPER SEWING MACHINE OPERATOR 11/14/2015 Office visit Jada Pulliam ZIPPER SEWING MACHINE OPERATOR 07/16/2015 Nurse visit Jada Pulliam ZIPPER SEWING MACHINE OPERATOR 11/30/2014 Office visit Sharon Villanueva 10/18/2014 Office visit Jada Pulliam ZIPPER SEWING MACHINE OPERATOR 08/17/2014 Office visit Jaylene Rebolledo MD 06/28/2014 Office visit Jada Pulliam ZIPPER SEWING MACHINE OPERATOR 06/01/2014 Office visit Sharon Villanueva 04/28/2014 Nurse visit Jada Pulliam ZIPPER SEWING MACHINE OPERATOR 07/20/2013 Office visit Jada Pulliam ZIPPER SEWING MACHINE OPERATOR 07/05/2013 Nurse visit Jada Pulliam ZIPPER SEWING MACHINE OPERATOR 01/10/2013 Office visit Jada Pulliam ZIPPER SEWING MACHINE OPERATOR 12/29/2012 Nurse visit Jada Pulliam ZIPPER SEWING MACHINE OPERATOR 06/16/2012 Office visit Jada Pulliam ZIPPER SEWING MACHINE OPERATOR 05/04/2012 Office visit Jada Pulliam ZIPPER SEWING MACHINE OPERATOR 03/10/2012 Office visit Jada Pulliam ZIPPER SEWING MACHINE OPERATOR 03/04/2012 Office visit Jada Pulliam ZIPPER SEWING MACHINE OPERATOR 01/13/2012 Office visit Ezequiel Mahan MD 01/08/2012 Nurse visit Mikki Carrasco MD 12/16/2011 Voided Ezequiel Mahan MD 11/28/2011 Office visit Ezequiel Mahan MD 10/28/2011 Office visit Jada Pulliam ZIPPER SEWING MACHINE OPERATOR 08/14/2011 Office visit Ezequiel Mahan MD 08/07/2011 Nurse visit Ezequiel Mahan MD 06/03/2011 Office visit Jada Heraclio ZIPPER SEWING MACHINE OPERATOR 05/07/2011 Office visit Ezequiel Mahan MD 04/28/2011 Voidvelma Mahan MD 11/18/2010 Office visit Braydon Ramirez [...]
--- OUTSIDE RECORDS SUMMARY | 2019-12-14 17:37 | XMS REPORT ---
Author Shandra Yepez Organization [facility] Address [address] [place] [id number] Care Team Providers Care Pourer Name Role Phone Chadd Lucio PCP Jada Pulliam PreferredProvider Allergies and Adverse Reactions Name Reaction Notes ciprofloxacin migraine codeine sulfate Plan of Treatment Planned Activity Comments Planned Date Planned Time Plan/Goal Urine Culture, [place] Count 03/04/2016 12:00 AM Osteoporosis and fracture [...] Reviewed 02/29/2016 12:00 AM Rocephin 1 gram [facility]#7157-2798-18 Reviewe d 03/27/2016 12:00 AM INJECT SPINE LUMBAR/SACRAL Reviewed 03/27/2016 12:00 AM URNLS DIP STICK/TABLET RGNT AUTO W/O KATHRIN ROSCOPY Reviewed 03/26/2016 12:00 AM Benadryl, Up to 50 Mg [facility]# 4549-6213-61 Reviewed 04/04/2016 12:00 AM IMMUNOTHERAPY ONE INJECTION Reviewed 10/29/2011 12:00 AM URINALYSIS AUTO W/O SCOPE Reviewed 10/28/2011 12:00 AM COMPLETE CBC W/AUTO DIFF WBC Reviewed 10/28/2011 12:00 AM COMPREHEN METABOLIC PANEL Reviewed 10/28/2011 12:00 AM URINE CULTURE/COLONY COUNT Reviewed 05/22/2016 12:00 AM ALLERGEN SPECIFIC IGE Reviewed 05/22/2016 12:00 AM Decadron, Per 1 Mg [facility]# [address]-05 Re viewed 05/22/2016 12:00 AM Depo-Medrol 40mg [...] Reviewed 01/08/2012 12:00 AM Depo-Medrol 40 mg [facility]#[id number] Reviewe d 09/08/2016 12:00 AM METABOLIC PANEL TOTAL CA Reviewed 09/08/2016 12:00 AM COMPLETE CBC W/AUTO DIFF WBC Reviewed 09/08/2016 12:00 AM RADIOLOGIC EXAM CHEST 2 VIEWS FRONTAL&LA TERAL Reviewed 04/13/2016 12:00 AM Depo-Medrol, Per 80 Mg [facility]#[address]-16 Reviewed 04/13/2016 12:00 AM Decadron, Per 1 Mg [facility]# [address]-86 Re viewed 04/13/2016 12:00 AM THER/PROPH/DIAG INJ [...] 12:00 AM Decadron, Per 1 Mg [facility]# [address]-19 Re viewed 01/10/2013 12:00 AM Depo-Medrol, Per 80 Mg [facility]#3504-9393-49 Reviewed 06/30/2018 12:[address] LUMBAR SPINE [...] 07/20/2013 12:00 AM Depo-Medrol, Per 80 Mg [facility]#9446-7895-73 Reviewed 07/20/2013 12:00 AM Decadron, Per 1 Mg [place]# [address]-01 Re viewed 03/14/2019 12:00 AM DXA BONE [...] Reviewed 10/24/2009 12:00 AM Kenalog 40 Mg [facility]#3871-0358-53 Review ed 11/30/2014 12:00 AM DESTRUCT PREMALG [...] CULT SET UP? YES 05/22/2016 3:30 PM V111-HzI D pteronyssinus <0. 10 U/pXJ007-UkB D farinae <0.10 U/bBP588-MrZ Cat Dander <0.10 G324-EvY Dog Dander <0.10 U/fDW411-HqV [place] Grass <0.10 U/yZV051-VaA Bluegrass,[facility] <0.10 U/rLR029-XtJ [place] Grass <0.10 U/bXZ795-ItD Cockroach,Bahraini <0.10 Z176-KyI Penicilliumchrysogen <0.10 V593-VkD Cladosporiumherbarum <0.10 W096-FhT Aspergillusfumigatus <0.10 Z976-JiV Mucor racemosus <0.10 K477-WxJ Alternariaalternata <0.10 U559-YyX Stemphyliumherbarum <0.10 K145-JrU Maple/[place] <0.10 U/iDU795-FdB [place], White <0.10 U/mEZ215-YpU Elm, Bahraini <0.10 U/mKY959-HlJ [place] <0.10 U/oHF665-KlB [place], White <0.10 U/pMI071-WwK Maple LeafSycamore <0.10 U/tJJ725-WnH [place] <0.10 U/wXL315-TnH Ragweed, Short <0.10 D680-XsW [place] <0.10 W009- IgE Plantain,Lao <0.10 B929-UgN Thistle, Montenegrin <0.10 Y687-QpP Pigweed, Common <0.10 H191-SzH Sheep [address] <0.10 W647-CmS Milk <0.10 W940-RaL Wheat <0.10 U/kES623-SoS [place] <0.10 U/nCZ924-QmX Peanut <0.10 U/cYS529-PyI Soybean <0.10 U/xRN208-VnL Pork <0.10 U/zJD893-KgT Beef <0.10 U/yZDL96-SzB Food Mix(Seafoods) Negative J015-HqY Egg, Whole <0.10 U/rXZ336-OyW Chocolate/[place] <0.10 07/21/2016 3:26 PM GLUCOSE 104.0 mg/dLSODIUM [...] Date Medicare Part B Medicare Of [place] [id number] N/A Claims Administration Claims Administration [id number] N/A Medicare RHC Medicare RHC [id number] N/ A [id number] 2013 Medicare Part A Medicare Part A [id number] Friday, 2013 [facility] Protective [employer] Insurance [place] Retriement [id number] N/A Medicare Part B Medicare Of [place] [id number] Friday, 2013 [place] [employer] Insurance [facility] [place] Life Ins [id number] N/A Medicare Part A ZZZMedicare P A - Preventive [id number] N/A Medicare RH Medicare [facility] [id number] N/A Medicare Part A Medicare - Lab/Xray [id number] N/A History of Encounters Visit Date Visit Type Provider 10/18/2019 Office visit Chadd Lucio MD 07/02/2019 [facility] Jessica Dhaliwal MD 03/22/2019 Office visit Chadd Lucio MD 03/14/2019 Office visit Jada Pulliam APRN 02/07/2019 Surgery Hermilo Gallego DO 01/11/2019 Office visit Hermilo Bouman DO 08/24/2018 Office visit Chadd Lucio MD 08/02/2018 Procedures Chadd Lucio MD 07/19/2018 Hospital Chadd Lucio MD 07/16/2018 Office visit Jasmyn LOCKHART RN 07/12/2018 [facility] Jessica Dhaliwal MD 07/05/2018 Office visit Matt Rice APR N 06/29/2018 Office visit Chadd Lucio MD 04/20/2018 Office visit Jada Walker ORAL THERAPIST 03/19/2018 Procedures Hermilo Bouman DO 03/12/2018 Procedures Hermilo Bouman DO 02/26/2018 Procedures Hermilo Bouman DO 01/03/2018 Office visit Katharina Kumar [place] APR N 10/08/2017 Office visit Jada Walker ORAL THERAPIST 10/06/2017 Office visit Jada Walker ORAL THERAPIST 10/07/2016 [facility] Jessica Dhaliwal MD 08/12/2016 Office visit Jada Walker ORAL THERAPIST 08/05/2016 Office visit Jada Walker ORAL THERAPIST 07/21/2016 Office visit Jada Walker ORAL THERAPIST 07/10/2016 [facility] Sage Green MD 07/09/2016 Office visit Valorie MCCLURE 07/09/2016 [facility] Jessica Dhaliwal MD 05/22/2016 Nurse visit Jada Walker ORAL THERAPIST 04/13/2016 Office visit Katharina Kumar [place] APR N 04/04/2016 Nurse visit Jada Walker ORAL THERAPIST 03/26/2016 Office visit Jada Walker ORAL THERAPIST 02/29/2016 Office visit Jada Walker ORAL THERAPIST 01/09/2016 Office visit Jada Walker ORAL THERAPIST 11/14/2015 Office visit Jada Walker ORAL THERAPIST 07/16/2015 Nurse visit Jada Walker ORAL THERAPIST 11/30/2014 Office visit Sharon Villanueva 10/18/2014 Office visit Jada Walker ORAL THERAPIST 08/17/2014 Office visit Jaylene Rebolledo MD 06/28/2014 Office visit Jada Walker ORAL THERAPIST 06/01/2014 Office visit Sharon Villanueva 04/28/2014 Nurse visit Jada Walker ORAL THERAPIST 07/20/2013 Office visit Jada Walker ORAL THERAPIST 07/05/2013 Nurse visit Jada Walker ORAL THERAPIST 01/10/2013 Office visit Jada Walker ORAL THERAPIST 12/29/2012 Nurse visit Jada Walker ORAL THERAPIST 06/16/2012 Office visit Jada Walker ORAL THERAPIST 05/04/2012 Office visit Jada Walker ORAL THERAPIST 03/10/2012 Office visit Jada Pulliam ORAL THERAPIST 03/04/2012 Office visit Jada Heraclio ORAL THERAPIST 01/13/2012 Office visit Ezequiel Mahan MD 01/08/2012 Nurse visit Mikki Carrasco MD 12/16/2011 Voided Ezequiel Mahan MD 11/28/2011 Office visit Ezequiel Mahan MD 10/28/2011 Office visit Jada Pulliam ORAL THERAPIST 08/14/2011 Office visit Ezequiel Mahan MD 08/07/2011 Nurse visit Ezequiel Mahan MD 06/03/2011 Office visit Jada Pulliam ORAL THERAPIST 05/07/2011 Office visit Ezequiel Mahan MD 04/28/2011 [...]
--- OUTSIDE RECORDS SUMMARY | 2019-12-14 17:38 | XMS REPORT ---
Author Author Shandra Pulliam Organization [facility] Address [address] [place], [place] [id number] Care Team Providers Care Sales Clerk Name Role Phone Jada Pulliam PCP Jada Pulliam PreferredProvider Allergies and Adverse Reactions Name Reaction Notes ciprofloxacin migraine codeine sulfate Plan of Treatment Planned Activity Comments Planned Date Planned Time Plan/Goal Urine Culture, [place] Count 03/04/2016 12:00 AM lumbar pain 12/17/2015 [...] HC BMI BSA BMI Percentile O2 Sat(%) 03/14/2019 1:48:00 PM 116 mmHg 70 mmHg 80 bpm 18 rpm 98.1 F 224 lbs 68 in 34.0587 kg/m 2.2079 m 99 % 01/11/2019 2:59:00 PM 170 mmHg 82 mmHg 72 bpm 20 rpm 97.6 F 222 lbs 68 in 33.75 kg/m2 2.20 m2 08/24/2018 9:47:00 AM 126 mmHg 84 mmHg 99 bpm 98.1 F 238 lbs 68 in 36.19 kg/m2 2.2758 m 97 % 07/16/2018 5:30:00 PM 150 mmHg 100 mmHg 94 bpm 18 rpm 97.8 F 229.25 lbs 68 in 34.857 kg/m 2.23 m2 96 % 07/05/2018 7:10:00 PM 162 mmHg 88 mmHg 104 bpm 97.9 F 230 lbs 68 in 34.97 kg/m2 2.2373 m 95 % 06/29/2018 11:16:00 AM 136 mmHg 76 mmHg 105 bpm 98.9 F 225.5 lbs 68 i n 34.2868 kg/m 2.22 m2 95 % 04/20/2018 1:19:00 PM 126 mmHg 72 mmHg 70 bpm 18 rpm 98.1 F 223.5 lbs 68 in 33.98 kg/m2 2.2054 m 95 % 03/19/2018 1:36:00 PM 129 mmHg 78 mmHg 68 bpm 20 rpm 97.5 F 222 lbs 68 in 33.7546 kg/m 2.20 m2 03/12/2018 10:36:00 AM 129 mmHg 78 mmHg 68 bpm 20 rpm 97.5 F 222.5 lbs 68 in 33.83 kg/m2 2.2005 m 02/26/2018 9:58:00 AM 147 mmHg 86 mmHg 60 bpm 20 rpm 97.6 F 221 lbs 68 in 33.6026 kg/m 2.19 m2 01/03/2018 1:13:00 PM 138 mmHg 88 mmHg [...] Reviewed 02/29/2016 12:00 AM Rocephin 1 gram [facility]#7231-2573-21 Reviewe d 03/27/2016 12:00 AM INJECT SPINE LUMBAR/SACRAL Reviewed 03/27/2016 12:00 AM URNLS DIP STICK/TABLET RGNT AUTO W/O KATHRIN ROSCOPY Reviewed 03/26/2016 12:00 AM Benadryl, Up to 50 Mg [facility]# 8177-5696-90 Reviewed 04/04/2016 12:00 AM IMMUNOTHERAPY ONE INJECTION Reviewed 10/29/2011 12:00 AM URINALYSIS AUTO W/O SCOPE Reviewed 10/28/2011 12:00 AM COMPLETE CBC W/AUTO DIFF WBC Reviewed 10/28/2011 12:00 AM COMPREHEN METABOLIC PANEL Reviewed 10/28/2011 12:00 AM URINE CULTURE/COLONY COUNT Reviewed 05/22/2016 12:00 AM ALLERGEN SPECIFIC IGE Reviewed 05/22/2016 12:00 AM Decadron, Per 1 Mg [facility]# [address]-91 Re viewed 05/22/2016 12:00 AM Depo-Medrol 40mg [...] Reviewed 01/08/2012 12:00 AM Depo-Medrol 40 mg [facility]#[id number] Reviewe d 09/08/2016 12:00 AM METABOLIC PANEL TOTAL CA Reviewed 09/08/2016 12:00 AM COMPLETE CBC W/AUTO DIFF WBC Reviewed 09/08/2016 12:00 AM RADIOLOGIC EXAM CHEST 2 VIEWS FRONTAL&LA TERAL Reviewed 04/13/2016 12:00 AM Depo-Medrol, Per 80 Mg [facility]#[address]-83 Reviewed 04/13/2016 12:00 AM Decadron, Per 1 Mg [facility]# [address]-19 Re viewed 04/13/2016 12:00 AM THER/PROPH/DIAG INJ [...] 01/10/2013 12:00 AM Decadron, Per 1 Mg [facility]# [address]-98 Re viewed 01/10/2013 12:00 AM Depo-Medrol, Per 80 Mg [facility]#7231-6055-66 Reviewed 06/30/2018 12:[address] LUMBAR SPINE [...] 07/20/2013 12:00 AM Depo-Medrol, Per 80 Mg [facility]#9145-4801-33 Reviewed 07/20/2013 12:00 AM Decadron, Per 1 Mg [facility]# [address]-96 Re viewed 03/14/2019 12:00 AM COMPLETE CBC [...] Reviewed 10/24/2009 12:00 AM Kenalog 40 Mg [facility]#9599-7328-35 Review ed 11/30/2014 12:00 AM DESTRUCT PREMALG [...] CULT SET UP? YES 05/22/2016 3:30 PM F103-XpV D pteronyssinus <0. 10 U/aSG152-DsX D farinae <0.10 U/wHV136-IvU Cat Dander <0.10 H550-SwL Dog Dander <0.10 U/hKV146-WiI [place] Grass <0.10 U/uOR701-TtV Bluegrass,[place] <0.10 U/gST438-OfV [place] Grass <0.10 U/qSW177-OiC Cockroach,Qat[place] <0.10 C222-GoP Penicilliumchrysogen <0.10 N059-WoP Cladosporiumherbarum <0.10 Y076-DsB Aspergillusfumigatus <0.10 H587-BcU Mucor racemosus <0.10 J482-FzI Alternariaalternata <0.10 K996-DuS Stemphyliumherbarum <0.10 C761-PkI Maple/[place] <0.10 U/hEE131-BuP [place], White <0.10 U/nSH418-DpD Elm, [place] <0.10 U/vYV022-JqL [place] <0.10 U/mST465-AdI Merlin, White <0.10 U/zCL139-RkI Maple LeafSycamore <0.10 U/kOT226-LsK [place] <0.10 U/hHD070-OeJ Ragweed, Short <0.10 L649-UbR [place] <0.10 W009- IgE Plantain,Cam[place]onian <0.10 P838-XdR Thistle, [place]ian <0.10 Z588-CsF Pigweed, Common <0.10 J504-WoC Sheep [place] <0.10 K807-EaA Milk <0.10 H780-RtE Wheat <0.10 U/bOC670-KlR [place] <0.10 U/cHW514-JcZ Peanut <0.10 U/wWS051-SuT Soybean <0.10 U/wAZ150-OkF Pork <0.10 U/oCC532-OnD Beef <0.10 U/dOLX10-UvP Food Mix(Seafoods) Negative I875-ZtR Egg, Whole <0.10 U/lIL216-AmS Chocolate/[place] <0.10 07/21/2016 3:26 PM GLUCOSE 104.0 mg/dLSODIUM [...] Not Entered 10/05/2019 10/05/2019 999 Tdap 07/16/2015 [employer] SKB BOOSTRIX H9P57 Intramuscula r Right Deltoid [...] Blood Pressure Without Diagnosis Of Hypertension Au g 2010 3:18PM Dysuria Jun 03 2011 4:45PM [...] screening mammogram for breast cancer Aug 04 2 016 11:50AM Routine gynecological examination Aug 05 2016 8:30AM Osteopenia Aug 05 2016 8:30AM Encounter for screening mammogram for breast cancer Aug 05 8:30AM Primary osteoarthritis of both knees Aug 05 2016 8:30AM Acute bronchitis due to other specified organisms Aug 12 6 1:32PM Cough present for greater than [...] 2019 1:50PM Osteopenia Mar 14 2019 3:45PM Payers Insurance Name Company Name Plan Name Plan Number Policy Number Sanjay cy Group Number Start Date Medicare [facility] Medicare [facility] [id number] N/ A [place] [employer] [place] [employer] Ins [id number] N/A Medicare Part A ZZZMedicare P A - Preventive [id number] N/A Medicare [facility] Medicare [facility] [id number] N/A Medicare Part A Medicare - Lab/Xray [id number] N/A Medicare Part B Medicare Of [place] [id number] N/A BCBS [facility] [id number] July 05, 2013 Medicare Part A Medicare Part A [id number] Friday, July 05, 2013 [facility] Q[place] Retriement [id number] N/A Medicare Part B Medicare Of [place] [id number] Friday, July 05, 2013 History of Encounters Visit Date Visit Type Provider 03/14/2019 Office visit Jada Pulliam WATER POLLUTION CONTROL INSPECTOR 02/07/2019 Surgery Hermilo Bouman DO 01/11/2019 Office visit Hermilokaren Gallego DO 08/24/2018 Office visit Chadd Lucio MD 08/02/2018 Procedures Chadd Lucio MD 07/19/2018 [facility] Chadd Lucio MD 07/16/2018 Office visit Jasmyn LOCKHART RN 07/12/2018 [facility] Jessica Dhaliwal MD 07/05/2018 Office visit Matt Rice APR N 06/29/2018 Office visit Chadd Lucio MD 04/20/2018 Office visit Jada Pulliam WATER POLLUTION CONTROL INSPECTOR 03/19/2018 Procedures Hermilo Bouman DO 03/12/2018 Procedures Hermilo Bouman DO 02/26/2018 Procedures Hermilo Bouman DO 01/03/2018 Office visit Katharina Kumar [place] APR N 10/08/2017 Office visit Jada Pulliam WATER POLLUTION CONTROL INSPECTOR 10/06/2017 Office visit Jada Walker WATER POLLUTION CONTROL INSPECTOR 10/07/2016 [facility] Jessica Dhaliwal MD 08/12/2016 Office visit Jada Pulliam WATER POLLUTION CONTROL INSPECTOR 08/05/2016 Office visit Jada Walker WATER POLLUTION CONTROL INSPECTOR 07/21/2016 Office visit Jada Walker WATER POLLUTION CONTROL INSPECTOR 07/10/2016 [facility] Sage Green MD 07/09/2016 Office visit Valorie MCCLURE 07/09/2016 [facility] Jessica Dhaliwal MD 05/22/2016 Nurse visit Jada Walker WATER POLLUTION CONTROL INSPECTOR 04/13/2016 Office visit Katharina Kumar [place] APR N 04/04/2016 Nurse visit Jada Walker WATER POLLUTION CONTROL INSPECTOR 03/26/2016 Office visit Jada Walker WATER POLLUTION CONTROL INSPECTOR 02/29/2016 Office visit Jada Walker WATER POLLUTION CONTROL INSPECTOR 01/09/2016 Office visit Jada Walker WATER POLLUTION CONTROL INSPECTOR 11/14/2015 Office visit Jada Walker WATER POLLUTION CONTROL INSPECTOR 07/16/2015 Nurse visit Jada Walker WATER POLLUTION CONTROL INSPECTOR 11/30/2014 Office visit Sharon Villanueva 10/18/2014 Office visit Jada Walker WATER POLLUTION CONTROL INSPECTOR 08/17/2014 Office visit Jaylene Rebolledo MD 06/28/2014 Office visit Jada Walker WATER POLLUTION CONTROL INSPECTOR 06/01/2014 Office visit Sharon Villanueva 04/28/2014 Nurse visit Jada Pulliam WATER POLLUTION CONTROL INSPECTOR 07/20/2013 Office visit Jada Pulliam WATER POLLUTION CONTROL INSPECTOR 07/05/2013 Nurse visit Jada Pulliam WATER POLLUTION CONTROL INSPECTOR 01/10/2013 Office visit Jada Pulliam WATER POLLUTION CONTROL INSPECTOR 12/29/2012 Nurse visit Jada Pulliam WATER POLLUTION CONTROL INSPECTOR 06/16/2012 Office visit Jada Pulliam WATER POLLUTION CONTROL INSPECTOR 05/04/2012 Office visit Jada Pulliam WATER POLLUTION CONTROL INSPECTOR 03/10/2012 Office visit Jada Pulliam WATER POLLUTION CONTROL INSPECTOR 03/04/2012 Office visit Jada Pulliam WATER POLLUTION CONTROL INSPECTOR 01/13/2012 Office visit Ezequiel Mahan MD 01/08/2012 Nurse visit Mikki Carrasco MD 12/16/2011 Voided Ezequiel Mahan MD 11/28/2011 Office visit Ezequiel Mahan MD 10/28/2011 Office visit Jada Pulliam WATER POLLUTION CONTROL INSPECTOR 08/14/2011 Office visit Ezequiel Mahan MD 08/07/2011 Nurse visit Ezequiel Mahan MD 06/03/2011 Office visit Jada Pulliam WATER POLLUTION CONTROL INSPECTOR 05/07/2011 Office visit Ezequiel Mahan MD 04/28/2011 [...]
--- OUTSIDE RECORDS SUMMARY | 2019-12-14 17:39 | XMS REPORT ---
Author Shandra Porter Organization [facility] Address [address] [place], [place] [address] Care Team Providers Care M48/M60 Tank Driver Name Role Phone Jada Pulliam PCP Jada Pulliam PreferredProvider Allergies and Adverse Reactions Name Reaction Notes ciprofloxacin migraine codeine sulfate Plan of Treatment Planned Activity Comments Planned Date Planned Time Plan/Goal Urine Culture, [place] Count 03/04/2016 12:00 AM lumbar pain 12/17/2015 2:00 PM TSH 03/14/2019 12:00 AM DEXA 03/14/2019 12:00 AM consult for frequent [...] Start Date Expiration Date SIG Comments Augmentin 838-654 mg oral tablet 10/24/2009 11/03/2009 take 1 [...] Reviewed 02/29/2016 12:00 AM Rocephin 1 gram [facility]#9496-7612-14 Reviewe d 03/27/2016 12:00 AM INJECT SPINE LUMBAR/SACRAL Reviewed 03/27/2016 12:00 AM URNLS DIP STICK/TABLET RGNT AUTO W/O KATHRIN ROSCOPY Reviewed 03/26/2016 12:00 AM Benadryl, Up to 50 Mg [facility]# 3794-3457-85 Reviewed 04/04/2016 12:00 AM IMMUNOTHERAPY ONE INJECTION Reviewed 10/29/2011 12:00 AM URINALYSIS AUTO W/O SCOPE Reviewed 10/28/2011 12:00 AM COMPLETE CBC W/AUTO DIFF WBC Reviewed 10/28/2011 12:00 AM COMPREHEN METABOLIC PANEL Reviewed 10/28/2011 12:00 AM URINE CULTURE/COLONY COUNT Reviewed 05/22/2016 12:00 AM ALLERGEN SPECIFIC IGE Reviewed 05/22/2016 12:00 AM Decadron, Per 1 Mg [facility]# [address]-87 Re viewed 05/22/2016 12:00 AM Depo-Medrol 40mg [...] Reviewed 01/08/2012 12:00 AM Depo-Medrol 40 mg [facility]#[id number] Reviewe d 09/08/2016 12:00 AM METABOLIC PANEL TOTAL CA Reviewed 09/08/2016 12:00 AM COMPLETE CBC W/AUTO DIFF WBC Reviewed 09/08/2016 12:00 AM RADIOLOGIC EXAM CHEST 2 VIEWS FRONTAL&LA TERAL Reviewed 04/13/2016 12:00 AM Depo-Medrol, Per 80 Mg [place]#[address]-73 Reviewed 04/13/2016 12:00 AM Decadron, Per 1 Mg [facility]# [address]-75 Re viewed 04/13/2016 12:00 AM THER/PROPH/DIAG INJ [...] 01/10/2013 12:00 AM Decadron, Per 1 Mg [facility]# [address]-76 Re viewed 01/10/2013 12:00 AM Depo-Medrol, Per 80 Mg [facility]#2286-4127-25 Reviewed 06/30/2018 12:[address] LUMBAR SPINE [...] 07/20/2013 12:00 AM Depo-Medrol, Per 80 Mg [facility]#4697-3687-86 Reviewed 07/20/2013 12:00 AM Decadron, Per 1 Mg [facility]# [address]-61 Re viewed 03/14/2019 12:00 AM COMPLETE CBC W/AUTO DIFF WBC Returned 03/14/2019 12:00 AM COMPREHEN METABOLIC PANEL Returned 03/14/2019 12:00 AM LIPID PANEL Returned 05/13/2010 12:00 AM COMPREHEN METABOLIC [...] Reviewed 10/24/2009 12:00 AM Kenalog 40 Mg [facility]#3899-0656-86 Review ed 11/30/2014 12:00 AM DESTRUCT PREMALG [...] CULT SET UP? YES 05/22/2016 3:30 PM Y397-UuO D pteronyssinus <0. 10 U/dFU969-MeD D farinae <0.10 U/sGF940-CxS Cat Dander <0.10 K097-RoO Dog Dander <0.10 U/kLZ754-BnV [place] Grass <0.10 U/eIX116-SlZ [place] <0.10 U/qKF793-DzJ [place] Grass <0.10 U/gSX666-NlH Cockroach,South Korean <0.10 I335-RfW Penicilliumchrysogen <0.10 S262-ZdA Cladosporiumherbarum <0.10 Y766-MwZ Aspergillusfumigatus <0.10 L100-PtZ Mucor racemosus <0.10 T128-OmZ Alternariaalternata <0.10 N453-ItV Stemphyliumherbarum <0.10 N668-EcI Maple/[place] <0.10 U/yXZ270-BqO [place], White <0.10 U/hWJ349-KjU Elm, South Korean <0.10 U/mKC875-DqP [place] <0.10 U/wII087-LeF Merlin, White <0.10 U/jDV957-MoJ Maple LeafSycamore <0.10 U/wCW426-LoD White Walker <0.10 U/rLP683-QqR Ragweed, Short <0.10 A712-AvW [place] <0.10 W009- IgE Plantain,Korean <0.10 A117-UnO Thistle, Bahamian <0.10 I936-BjJ Pigweed, Common <0.10 H691-WhA Sheep [place] <0.10 F667-NrT Milk <0.10 Z875-HsG Wheat <0.10 U/sDZ044-CuP [place] <0.10 U/dED734-OsK Peanut <0.10 U/gWP874-MwM Soybean <0.10 U/iWI054-ChN Pork <0.10 U/dOA033-ZfF Beef <0.10 U/qWLE02-IhX Food Mix(Seafoods) Negative M131-PlL Egg, Whole <0.10 U/rJT013-WjF Chocolate/[place] <0.10 07/21/2016 3:26 PM GLUCOSE 104.0 mg/dLSODIUM [...] Not Entered 10/05/2019 10/05/2019 999 Tdap 07/16/2015 Glax[employer]Guide[employer] SKB BOOSTRIX [id number] Intramuscula r Right Deltoid [...] Sanjay cy Group Number Start Date Medicare [facility] Medicare [facility] [id number] N/ A [employer] [place] Life Ins [id number] N/A Medicare Part A ZZZMedicare P A - Preventive [id number] N/A Medicare [facility] Medicare [facility] [id number] N/A Medicare Part A Medicare - Lab/Xray [id number] N/A Medicare Part B Medicare Of [place] [id number] N/A BCBS Bcbs [facility] [id number] July 05, 2013 Medicare Part A Medicare Part A [id number] Friday, July 05, [address] [facility] [place] Retriement [id number] N/A Medicare Part B Medicare Of [place] [id number] Friday, July 05, 2013 History of Encounters Visit Date Visit Type Provider 03/14/2019 Office visit Jada Pulliam BUSINESS ANALYTICS DIRECTOR 02/07/2019 Surgery Hermilo Bouman DO 01/11/2019 Office visit Hermilo Bouman DO 08/24/2018 Office visit Chadd Lucio MD 08/02/2018 Procedures Chadd Lucio MD 07/19/2018 [facility] Chadd Lucio MD 07/16/2018 Office visit Jasmyn LOCKHART RN 07/12/2018 [facility] Jessica Dhaliwal MD 07/05/2018 Office visit Matt Rice APR N 06/29/2018 Office visit Chadd Lucio MD 04/20/2018 Office visit Jada Pulliam BUSINESS ANALYTICS DIRECTOR 03/19/2018 Procedures Hermilo Bouman DO 03/12/2018 Procedures Hermilo Bouman DO 02/26/2018 Procedures Hermilo Bouman DO 01/03/2018 Office visit Katharina Murdock APR N 10/08/2017 Office visit Jada Pulliam BUSINESS ANALYTICS DIRECTOR 10/06/2017 Office visit Jada Pulliam BUSINESS ANALYTICS DIRECTOR 10/07/2016 [facility] Jessica Dhaliwal MD 08/12/2016 Office visit Jada Pulliam BUSINESS ANALYTICS DIRECTOR 08/05/2016 Office visit Jada Pulliam BUSINESS ANALYTICS DIRECTOR 07/21/2016 Office visit Jada Walker BUSINESS ANALYTICS DIRECTOR 07/10/2016 [facility] Sage Green MD 07/09/2016 Office visit Valorie MCCLURE 07/09/2016 [facility] Jessica Dhaliwal MD 05/22/2016 Nurse visit Jada Pulliam BUSINESS ANALYTICS DIRECTOR 04/13/2016 Office visit Katharina Kumar [place] APR N 04/04/2016 Nurse visit Jada Walker BUSINESS ANALYTICS DIRECTOR 03/26/2016 Office visit Jada Walker BUSINESS ANALYTICS DIRECTOR 02/29/2016 Office visit Jada Pulliam BUSINESS ANALYTICS DIRECTOR 01/09/2016 Office visit Jada Pulliam BUSINESS ANALYTICS DIRECTOR 11/14/2015 Office visit Jada Walker BUSINESS ANALYTICS DIRECTOR 07/16/2015 Nurse visit Jada Walker BUSINESS ANALYTICS DIRECTOR 11/30/2014 Office visit Sharon Villanueva 10/18/2014 Office visit Jada Pulliam BUSINESS ANALYTICS DIRECTOR 08/17/2014 Office visit Jaylene Rebolledo MD 06/28/2014 Office visit Jada Pulliam BUSINESS ANALYTICS DIRECTOR 06/01/2014 Office visit Sharon Villanueva 04/28/2014 Nurse visit Jada Pulliam BUSINESS ANALYTICS DIRECTOR 07/20/2013 Office visit Jada Pulliam BUSINESS ANALYTICS DIRECTOR 07/05/2013 Nurse visit Jada Pulliam BUSINESS ANALYTICS DIRECTOR 01/10/2013 Office visit Jada Pulliam BUSINESS ANALYTICS DIRECTOR 12/29/2012 Nurse visit Jada Pulliam BUSINESS ANALYTICS DIRECTOR 06/16/2012 Office visit Jada Pulliam BUSINESS ANALYTICS DIRECTOR 05/04/2012 Office visit Jada Pulliam BUSINESS ANALYTICS DIRECTOR 03/10/2012 Office visit Jada Pulliam BUSINESS ANALYTICS DIRECTOR 03/04/2012 Office visit Jada Pulliam BUSINESS ANALYTICS DIRECTOR 01/13/2012 Office visit Ezequiel Mahan MD 01/08/2012 Nurse visit Mikki Carrasco MD 12/16/2011 Voided Ezequiel Mahan MD 11/28/2011 Office visit Ezequiel Mahan MD 10/28/2011 Office visit Jada Heraclio BUSINESS ANALYTICS DIRECTOR 08/14/2011 Office visit Ezequiel Mahan MD 08/07/2011 Nurse visit Ezequiel Mahan MD 06/03/2011 Office visit Jada Heraclio BUSINESS ANALYTICS DIRECTOR 05/07/2011 Office visit Ezequiel Mahan MD 04/28/2011 [...]
--- OUTSIDE RECORDS SUMMARY | 2019-12-14 17:40 | XMS REPORT ---
Author Shandra Porter Organization [facility] Address [address] [place], [place] [address] Care Team Providers Care Air Tool Operator Name Role Phone Jada Pulliam PCP Jada Pulliam PreferredProvider Allergies and Adverse Reactions Name Reaction Notes ciprofloxacin migraine codeine sulfate Plan of Treatment Planned Activity Comments Planned Date Planned Time Plan/Goal Urine Culture, [place] Count 03/04/2016 12:00 AM lumbar pain 12/17/2015 2:00 PM CBC With Auto Differential 03/14/2019 12:00 AM CMP (comprehensive metabolic panel) 03/14/2019 12:00 AM .Lipid Panel 03/14/2019 12:00 AM TSH 03/14/2019 12:00 AM DEXA 03/14/2019 12:00 [...] Reviewed 02/29/2016 12:00 AM Rocephin 1 gram [facility]#5581-8134-83 Reviewe d 03/27/2016 12:00 AM INJECT SPINE LUMBAR/SACRAL Reviewed 03/27/2016 12:00 AM URNLS DIP STICK/TABLET RGNT AUTO W/O KATHRIN ROSCOPY Reviewed 03/26/2016 12:00 AM Benadryl, Up to 50 Mg [facility]# 2939-7093-52 Reviewed 04/04/2016 12:00 AM IMMUNOTHERAPY ONE INJECTION Reviewed 10/29/2011 12:00 AM URINALYSIS AUTO W/O SCOPE Reviewed 10/28/2011 12:00 AM COMPLETE CBC W/AUTO DIFF WBC Reviewed 10/28/2011 12:00 AM COMPREHEN METABOLIC PANEL Reviewed 10/28/2011 12:00 AM URINE CULTURE/COLONY COUNT Reviewed 05/22/2016 12:00 AM ALLERGEN SPECIFIC IGE Reviewed 05/22/2016 12:00 AM Decadron, Per 1 Mg [facility]# [address]-26 Re viewed 05/22/2016 12:00 AM Depo-Medrol 40mg [...] Reviewed 01/08/2012 12:00 AM Depo-Medrol 40 mg [facility]#[id number] Reviewe d 09/08/2016 12:00 AM METABOLIC PANEL TOTAL CA Reviewed 09/08/2016 12:00 AM COMPLETE CBC W/AUTO DIFF WBC Reviewed 09/08/2016 12:00 AM RADIOLOGIC EXAM CHEST 2 VIEWS FRONTAL&LA TERAL Reviewed 04/13/2016 12:00 AM Depo-Medrol, Per 80 Mg [facility]#[address]-86 Reviewed 04/13/2016 12:00 AM Decadron, Per 1 Mg [facility]# [address]-66 Re viewed 04/13/2016 12:00 AM THER/PROPH/DIAG INJ [...] 01/10/2013 12:00 AM Decadron, Per 1 Mg [facility]# [address]-70 Re viewed 01/10/2013 12:00 AM Depo-Medrol, Per 80 Mg [facility]#5805-9419-82 Reviewed 06/30/2018 12:[address] LUMBAR SPINE [...] 07/20/2013 12:00 AM Depo-Medrol, Per 80 Mg [facility]#9194-8797-74 Reviewed 07/20/2013 12:00 AM Decadron, Per 1 Mg [facility]# [address]-14 Re viewed 05/13/2010 12:00 AM COMPREHEN METABOLIC PANEL Reviewed [...] Reviewed 10/24/2009 12:00 AM Kenalog 40 Mg [facility]#8031-9325-56 Review ed 11/30/2014 12:00 AM DESTRUCT PREMALG [...] CULT SET UP? YES 05/22/2016 3:30 PM V943-NrG D pteronyssinus <0. 10 U/lOI139-JgR D farinae <0.10 U/gZQ314-ZcA Cat Dander <0.10 J152-NtR Dog Dander <0.10 U/tOE877-ErS [place] Grass <0.10 U/qYM665-HqL Bluegrass[facility] <0.[facility] U/xBI805-ElH [place] Grass <0.10 U/fZE378-FwT Cockroach,Comoran <0.10 K540-CgU Penicilliumchrysogen <0.10 F594-TfT Cladosporiumherbarum <0.10 L760-OeP Aspergillusfumigatus <0.10 V204-HwL Mucor racemosus <0.10 R868-FcR Alternariaalternata <0.10 V557-FmD Stemphyliumherbarum <0.10 Z649-McM Maple/[place] <0.10 U/lEN022-XpX [place], White <0.10 U/nMI937-AtT Elm, [place]an <0.10 U/cWW209-EkG [place] <0.10 U/jTN633-SmH Merlin, White <0.10 U/hGR692-NmA Maple LeafSycamore <0.10 U/aBI402-FjK [place] <0.10 U/bQO631-YeP Ragweed, Short <0.10 R746-WaF [place] <0.10 W009- IgE Plantain,Pashto <0.10 Q363-FnY Thistle, Citizen Of [place] <0.10 X365-ZdS Pigweed, Common <0.10 C727-XlR Sheep [place] <0.10 Q846-HwI Milk <0.10 G561-ZkE Wheat <0.10 U/vNU640-DeC [place] <0.10 U/lOF328-ByC Peanut <0.10 U/tUN182-GiV Soybean <0.10 U/nCI045-CeA Pork <0.10 U/nQJ225-DfH Beef <0.10 U/sDRQ68-OsL Food Mix(Seafoods) Negative E076-QtJ Egg, Whole <0.10 U/dLD944-UpF Chocolate/[place] <0.10 07/21/2016 3:26 PM GLUCOSE 104.0 mg/dLSODIUM [...] screening mammogram for breast cancer Aug 05 2 8:30AM Primary osteoarthritis of both knees Aug [...] Sanjay cy Group Number Start Date Medicare RHC Medicare RHC [id number] N/ A [employer] [place] Life Ins [id number] N/A Medicare Part A ZZZMedicare P A - Preventive [id number] N/A Medicare RHC Medicare RHC [id number] N/A Medicare Part A Medicare - Lab/Xray [id number] N/A Medicare Part B Medicare Of [place] [id number] N/A BCBS Bcbs [facility] [id number] [facility] Medicare Part A Medicare Part A [id number] Friday, July 05, [address] [facility] [place] Retriement [id number] N/A Medicare Part B Medicare Of [place] [id number] Friday, July 05, 2013 History of Encounters Visit Date Visit Type Provider 03/14/2019 Office visit Jada Pulliam GYRO MECHANIC 02/07/2019 Surgery Hermilo Bouman DO 01/11/2019 Office visit Hermilo Bouman DO 08/24/2018 Office visit Chadd Lucio MD 08/02/2018 Procedures Chadd Lucio MD 07/19/2018 Hospital Chadd Lucio MD 07/16/2018 Office visit Jasmyn LOCKHART RN 07/12/2018 [facility] Jessica Dhaliwal MD 07/05/2018 Office visit Matt Rice APR N 06/29/2018 Office visit Chadd Lucio MD 04/20/2018 Office visit Jada Pulliam GYRO MECHANIC 03/19/2018 Procedures Hermilo Bouman DO 03/12/2018 Procedures Hermilo Bouman DO 02/26/2018 Procedures Hermilo Bouman DO 01/03/2018 Office visit Katharina Murdock APR N 10/08/2017 Office visit Jada Pulliam GYRO MECHANIC 10/06/2017 Office visit Jada Walker GYRO MECHANIC 10/07/2016 [facility] Jessica Dhaliwal MD 08/12/2016 Office visit Jada Pulliam GYRO MECHANIC 08/05/2016 Office visit Jada Walker GYRO MECHANIC 07/21/2016 Office visit Jada Walker GYRO MECHANIC 07/10/2016 [facility] Sage Green MD 07/09/2016 Office visit Valorie MCCLURE 07/09/2016 [facility] Jessica Dhaliwal MD 05/22/2016 Nurse visit Jada Walker GYRO MECHANIC 04/13/2016 Office visit Katharina Kumar [place] APR N 04/04/2016 Nurse visit Jada Walker GYRO MECHANIC 03/26/2016 Office visit Jada Walker GYRO MECHANIC 02/29/2016 Office visit Jada Walker GYRO MECHANIC 01/09/2016 Office visit Jada Walker GYRO MECHANIC 11/14/2015 Office visit Jada Walker GYRO MECHANIC 07/16/2015 Nurse visit Jada Walker GYRO MECHANIC 11/30/2014 Office visit Sharon Villanueva 10/18/2014 Office visit Jada Pulliam GYRO MECHANIC 08/17/2014 Office visit Jaylene Rebolledo MD 06/28/2014 Office visit Jada Walker GYRO MECHANIC 06/01/2014 Office visit Sharon Villanueva 04/28/2014 Nurse visit Jada Pulliam GYRO MECHANIC 07/20/2013 Office visit Jada Pulliam GYRO MECHANIC 07/05/2013 Nurse visit Jada Pulliam GYRO MECHANIC 01/10/2013 Office visit Jada Pulliam GYRO MECHANIC 12/29/2012 Nurse visit Jaad Pulliam GYRO MECHANIC 06/16/2012 Office visit Jada Pulliam GYRO MECHANIC 05/04/2012 Office visit Jada Pulliam GYRO MECHANIC 03/10/2012 Office visit Jada Pulliam GYRO MECHANIC 03/04/2012 Office visit Jada Pulliam GYRO MECHANIC 01/13/2012 Office visit Ezequiel Mahan MD 01/08/2012 Nurse visit Mikki Carrasco MD 12/16/2011 Voided Ezequiel Mahan MD 11/28/2011 Office visit Ezequiel Mahan MD 10/28/2011 Office visit Jada Heraclio GYRO MECHANIC 08/14/2011 Office visit Ezequiel Mahan MD 08/07/2011 Nurse visit Ezequiel Mahan MD 06/03/2011 Office visit Jada Pulliam GYRO MECHANIC 05/07/2011 Office visit Ezequiel Mahan MD 04/28/2011 [...]
--- OUTSIDE RECORDS SUMMARY | 2019-12-14 17:40 | XMS REPORT ---
Author Shandra Porter Organization [facility] Address [address] [place], [place] [address] Care Team Providers Care Dairy Bar Manager Name Role Phone Jada Pulliam PCP Jada Pulliam PreferredProvider Allergies and Adverse Reactions Name Reaction Notes ciprofloxacin migraine codeine sulfate Plan of Treatment Planned Activity Comments Planned Date Planned Time Plan/Goal Urine Culture, [place] Count 03/04/2016 12:00 AM lumbar pain 12/17/2015 [...] 02/29/2016 12:00 AM Rocephin [address] [facility]#9305-3400-63 Reviewe d 03/27/2016 12:00 AM INJECT SPINE LUMBAR/SACRAL Reviewed 03/27/2016 12:00 AM URNLS DIP STICK/TABLET RGNT AUTO W/O KATHRIN ROSCOPY Reviewed 03/26/2016 12:00 AM Benadryl, Up to [address] [facility]# 2257-6478-62 Reviewed 04/04/2016 12:00 AM IMMUNOTHERAPY ONE INJECTION Reviewed 10/29/2011 12:00 AM URINALYSIS AUTO W/O SCOPE Reviewed 10/28/2011 12:00 AM COMPLETE CBC W/AUTO DIFF WBC Reviewed 10/28/2011 12:00 AM COMPREHEN METABOLIC PANEL Reviewed 10/28/2011 12:00 AM URINE CULTURE/COLONY COUNT Reviewed 05/22/2016 12:00 AM ALLERGEN SPECIFIC IGE Reviewed 05/22/2016 12:00 AM Decadron, Per [address] [facility]# [address]-73 Re viewed 05/22/2016 12:00 AM Depo-Medrol 40mg [...] 01/08/2012 12:00 AM Depo-Medrol [address] [facility]#[id number] Reviewe d 09/08/2016 12:00 AM METABOLIC PANEL TOTAL CA Reviewed 09/08/2016 12:00 AM COMPLETE CBC W/AUTO DIFF WBC Reviewed 09/08/2016 12:00 AM RADIOLOGIC EXAM CHEST 2 VIEWS FRONTAL&LA TERAL Reviewed 04/13/2016 12:00 AM Depo-Medrol, Per [address] [facility]#[address]-89 Reviewed 04/13/2016 12:00 AM Decadron, Per [address] [facility]# [address]-95 Re viewed 04/13/2016 12:00 AM THER/PROPH/DIAG INJ [...] 12:00 AM Decadron, Per [address] [facility]# [address]-29 Re viewed 01/10/2013 12:00 AM Depo-Medrol, Per [address] [facility]#2494-0604-26 Reviewed 06/30/2018 12:[address] LUMBAR SPINE [...] 12:00 AM Depo-Medrol, Per [address] [facility]#2110[address]12[address]-26 Reviewed 07/20/2013 12:00 AM Decadron, Per [address] [facility]# [address]-35 Re viewed 05/13/2010 12:00 AM COMPREHEN METABOLIC [...] Reviewed 10/24/2009 12:00 AM Kenalog 40 Mg [facility]#1772-3101-15 Review ed 11/30/2014 12:00 AM DESTRUCT PREMALG [...] CULT SET UP? YES 05/22/2016 3:30 PM M170-LpY D pteronyssinus <0. 10 U/tLX071-RnY D farinae <0.10 U/hVJ942-KgB Cat Dander <0.10 Q183-UuO Dog Dander <0.10 U/fFB891-FyY [place] Grass <0.10 U/zMV204-UjT Bluegrass[facility] <0.10 U/cTF082-LrK [place] Grass <0.10 U/jDG575-SaL Cockroach,Dutch <0.10 F811-YjC Penicilliumchrysogen <0.10 I071-ImD Cladosporiumherbarum <0.10 L235-EpH Aspergillusfumigatus <0.10 Q320-FkX Mucor racemosus <0.10 M801-HlJ Alternariaalternata <0.10 T940-QyQ Stemphyliumherbarum <0.10 S117-YbK Maple/[place] <0.10 U/dEG998-GkG [place], White <0.10 U/aCR369-NiS Elm, Dutch <0.10 U/mIH621-NcU [place] <0.10 U/kFH347-AtI Merlin, White <0.10 U/fES299-OcJ Maple LeafSycamore <0.10 U/dAE605-YdN [place] <0.10 U/qGY191-FfM Ragweed, Short <0.10 J618-LoG [place] <0.10 W009- IgE Plantain,Chinese <0.10 Q976-QnU Thistle, Marshallese <0.10 H102-RaB Pigweed, Common <0.10 A768-PfT Sheep [place] <0.10 J287-OkO Milk <0.10 H204-EgP Wheat <0.10 U/uXB187-DsJ [place] <0.10 U/cPR313-QdD Peanut <0.10 U/kDS296-GrQ Soybean <0.10 U/oVS902-CrU Pork <0.10 U/mIP625-GeA Beef <0.10 U/cHQD90-InQ Food Mix(Seafoods) Negative X782-JeH Egg, Whole <0.10 U/gLB316-JmB Chocolate/[place] <0.10 07/21/2016 3:26 PM GLUCOSE 104.0 mg/dLSODIUM [...] Number Start Date Medicare RHC Medicare RHC [id number] N/ A [employer] [place] Life Ins [id number] N/A Medicare Part A ZZZMedicare P A - Preventive [id number] N/A Medicare RHC Medicare RHC [id number] N/A Medicare Part A Medicare - Lab/Xray [id number] N/A Medicare Part B Medicare Of [place] [id number] N/A BCBS Bcbs [facility] [id number] [facility] Medicare Part A Medicare Part A [id number] Friday, July 05, 2013 [facility] [place] Retriement [id number] N/A Medicare Part B Medicare Of [place] [id number] Friday, July 05, 2013 History of Encounters Visit Date Visit Type Provider 03/14/2019 Office visit Jada Pulliam BLOCKER AUTOMATIC 02/07/2019 Surgery Hermilo Bouman DO 01/11/2019 Office visit Hermilo Bouman DO 08/24/2018 Office visit Chadd Lucio MD 08/02/2018 Procedures Chadd Lucio MD 07/19/2018 Hospital Chadd Lucio MD 07/16/2018 Office visit Jasmyn LOCKHART RN 07/12/2018 [facility] Jessica Dhaliwal MD 07/05/2018 Office visit Matt Rice APR N 06/29/2018 Office visit Chadd Lucio MD 04/20/2018 Office visit Jada Pulliam BLOCKER AUTOMATIC 03/19/2018 Procedures Hermilo Bouman DO 03/12/2018 Procedures Hermilo Bouman DO 02/26/2018 Procedures Hermilo Bouman DO 01/03/2018 Office visit Katharina Murdock APR N 10/08/2017 Office visit Jada Pulliam BLOCKER AUTOMATIC 10/06/2017 Office visit Jada Walker BLOCKER AUTOMATIC 10/07/2016 [facility] Jessica Dhaliwal MD 08/12/2016 Office visit Jada Pulliam BLOCKER AUTOMATIC 08/05/2016 Office visit Jada Walker BLOCKER AUTOMATIC 07/21/2016 Office visit Jada Walker BLOCKER AUTOMATIC 07/10/2016 [facility] Sage Green MD 07/09/2016 Office visit Valorie MCCLURE 07/09/2016 [facility] Jessica Dhaliwal MD 05/22/2016 Nurse visit Jada Walker BLOCKER AUTOMATIC 04/13/2016 Office visit Katharina Kumar [place] APR N 04/04/2016 Nurse visit Jada Walker BLOCKER AUTOMATIC 03/26/2016 Office visit Jada Walker BLOCKER AUTOMATIC 02/29/2016 Office visit Jada Walker BLOCKER AUTOMATIC 01/09/2016 Office visit Jada Walker BLOCKER AUTOMATIC 11/14/2015 Office visit Jada Walker BLOCKER AUTOMATIC 07/16/2015 Nurse visit Jada Walker BLOCKER AUTOMATIC 11/30/2014 Office visit Sharon Villanueva 10/18/2014 Office visit Jada Pulliam BLOCKER AUTOMATIC 08/17/2014 Office visit Jaylene Rebolledo MD 06/28/2014 Office visit Jada Walker BLOCKER AUTOMATIC 06/01/2014 Office visit Sharon Villanueva 04/28/2014 Nurse visit Jada Pulliam BLOCKER AUTOMATIC 07/20/2013 Office visit Jada Pulliam BLOCKER AUTOMATIC 07/05/2013 Nurse visit Jada Pulliam BLOCKER AUTOMATIC 01/10/2013 Office visit Jada Pulliam BLOCKER AUTOMATIC 12/29/2012 Nurse visit Jada Pulliam BLOCKER AUTOMATIC 06/16/2012 Office visit Jada Pulliam BLOCKER AUTOMATIC 05/04/2012 Office visit Jada Pulliam BLOCKER AUTOMATIC 03/10/2012 Office visit Jada Pulliam BLOCKER AUTOMATIC 03/04/2012 Office visit Jada Pulliam BLOCKER AUTOMATIC 01/13/2012 Office visit Ezequiel Mahan MD 01/08/2012 Nurse visit Mikki Carrasco MD 12/16/2011 Voided Ezequiel Mhaan MD 11/28/2011 Office visit Ezequiel Mahan MD 10/28/2011 Office visit Jada Heraclio BLOCKER AUTOMATIC 08/14/2011 Office visit Ezequiel Mahan MD 08/07/2011 Nurse visit Ezequiel Mahan MD 06/03/2011 Office visit Jada Pulliam BLOCKER AUTOMATIC 05/07/2011 Office visit Ezequiel Mahan MD 04/28/2011 [...]
--- OUTSIDE RECORDS SUMMARY | 2019-12-14 17:41 | XMS REPORT ---
Author Shandra Mata Organization [facility] Address [address] [place] [id number] Care Team Providers Care Mechanical Maintenance Name Role Phone Hermilo Gallego PCP Jada Pulliam PreferredProvider Allergies and Adverse Reactions Name Reaction Notes ciprofloxacin migraine codeine sulfate Plan of Treatment Planned Activity Comments Planned Date Planned Time Plan/Goal Urine Culture, [place] Count 03/04/2016 12:00 AM lumbar pain 12/17/2015 2:00 PM Lumbar Spine 2-3 Views - MOB 12/06/2018 12:00 AM consult for frequent UTI Mammography; [...] HC BMI BSA BMI Percentile O2 Sat(%) 01/11/2019 2:59:00 PM 170 mmHg 82 mmHg [...] Reviewed 02/29/2016 12:00 AM Rocephin 1 gram [facility]#3199-3225-88 Reviewe d 03/27/2016 12:00 AM INJECT SPINE LUMBAR/SACRAL Reviewed 03/27/2016 12:00 AM URNLS DIP STICK/TABLET RGNT AUTO W/O KATHRIN ROSCOPY Reviewed 03/26/2016 12:00 AM Benadryl, Up to 50 Mg [facility]# 1618-1427-60 Reviewed 04/04/2016 12:00 AM IMMUNOTHERAPY ONE INJECTION Reviewed 10/29/2011 12:00 AM URINALYSIS AUTO W/O SCOPE Reviewed 10/28/2011 12:00 AM COMPLETE CBC W/AUTO DIFF WBC Reviewed 10/28/2011 12:00 AM COMPREHEN METABOLIC PANEL Reviewed 10/28/2011 12:00 AM URINE CULTURE/COLONY COUNT Reviewed 05/22/2016 12:00 AM ALLERGEN SPECIFIC IGE Reviewed 05/22/2016 12:00 AM Decadron, Per 1 Mg [facility]# [address]-88 Re viewed 05/22/2016 12:00 AM Depo-Medrol 40mg [...] Reviewed 01/08/2012 12:00 AM Depo-Medrol 40 mg [facility]#[id number] Reviewe d 09/08/2016 12:00 AM METABOLIC PANEL TOTAL CA Reviewed 09/08/2016 12:00 AM COMPLETE CBC W/AUTO DIFF WBC Reviewed 09/08/2016 12:00 AM RADIOLOGIC EXAM CHEST 2 VIEWS FRONTAL&LA TERAL Reviewed 04/13/2016 12:00 AM Depo-Medrol, Per 80 Mg [facility]#[address]-08 Reviewed 04/13/2016 12:00 AM Decadron, Per 1 Mg [facility]# [address]-31 Re viewed 04/13/2016 12:00 AM THER/PROPH/DIAG INJ [...] 01/10/2013 12:00 AM Decadron, Per 1 Mg [facility]# [address]-33 Re viewed 01/10/2013 12:00 AM Depo-Medrol, Per 80 Mg [facility]#4909-7900-02 Reviewed 06/30/2018 12:[address] LUMBAR SPINE [...] 07/05/2013 12:00 AM Prolia, 60 Mg Reviewed 07/20/2013 12:00 AM THER/PROPH/DIAG INJ SC/IM Reviewed 07/20/2013 12:00 AM Depo-Medrol, Per 80 Mg [facility]#5883-0625-04 Reviewed 07/20/2013 12:00 AM Decadron, Per 1 Mg [facility]# [address]-74 Re viewed 05/13/2010 12:00 AM COMPREHEN METABOLIC [...] Reviewed 10/24/2009 12:00 AM Kenalog 40 Mg [facility]#7126-1062-35 Review ed 11/30/2014 12:00 AM DESTRUCT PREMALG [...] CULT SET UP? YES 05/22/2016 3:30 PM H143-BuW D pteronyssinus <0. 10 U/sMX296-FpK D farinae <0.10 U/bND078-ZvN Cat Dander <0.10 P444-GkG Dog Dander <0.10 U/aAB750-WoL [place] Grass <0.10 U/pGN191-CbC BluegrassLibby, [place] <0.10 U/wVB855-PzD [place] Grass <0.10 U/eWT442-DpA Cockroach,Croatian <0.10 Q755-OeC Penicilliumchrysogen <0.10 U114-MgH Cladosporiumherbarum <0.10 F562-EkO Aspergillusfumigatus <0.10 B944-TnZ Mucor racemosus <0.10 W425-OcH Alternariaalternata <0.10 S184-HeC Stemphyliumherbarum <0.10 Z169-OhP Maple/[place] <0.10 U/yRW812-TgM [place], White <0.10 U/kHF958-VcD Elm, Croatian <0.10 U/kEA522-RtK [place] <0.10 U/kCF000-RzS Merlin, White <0.10 U/lTS462-JqA Maple LeafSycamore <0.10 U/jWC610-WdF [place] <0.10 U/yQH455-OiV Ragweed, Short <0.10 F130-WwQ [place] <0.10 W009- IgE Plantain,Greenlandic <0.10 E490-LdT Thistle, [place] <0.10 S647-SrX Pigweed, Common <0.10 G217-QkW Sheep [place] <0.10 M512-DkU Milk <0.10 M251-KjE Wheat <0.10 U/jBO666-RxR [place] <0.10 U/nWR038-AxY Peanut <0.10 U/rQU149-MtA Soybean <0.10 U/xGV330-ZzC Pork <0.10 U/wDC675-UnD Beef <0.10 U/oVCJ31-DsA Food Mix(Seafoods) Negative W185-NyG Egg, Whole <0.10 U/lLQ138-PnR Chocolate/[place] <0.10 07/21/2016 3:26 PM GLUCOSE 104.0 mg/dLSODIUM [...] Colon cancer screening Jan 11 2019 3:01PM Payers Insurance Name Company Name Plan Name Plan Number Policy Number Sanjay cy Group Number Start Date Medicare Part B Medicare Of [place] [id number] N/A [facility] [place] Life Ins [id number] N/A Medicare Part A ZZZMedicare P A - Preventive [id number] N/A Medicare RHC Medicare C [id number] N/A Medicare Part A Medicare - Lab/Xray [id number] N/A BCBS Bcbs [facility] [id number] July 05, 2013 Medicare Part A Medicare Part A [id number] Friday, July 05, 2013 [facility] ON24 Insurance Co [place] Retriement [id number] N/A Medicare Part B Medicare Of [place] [id number] Friday, July 05, 2013 History of Encounters Visit Date Visit Type Provider 01/11/2019 Office visit Hermilo Gallego DO 08/24/2018 Office visit Chadd Lucio MD 08/02/2018 Procedures Chadd Lucio MD 07/19/2018 [facility] Chadd Lucio MD 07/16/2018 Office visit Jasmyn LOCKHART RN 07/12/2018 [facility] Jessica Dhaliwal MD 07/05/2018 Office visit Matt Rice APR N 06/29/2018 Office visit Chadd Lucio MD 04/20/2018 Office visit Jada Pulliam APRN 03/19/2018 Procedures Hermilo Gallego DO 03/12/2018 Procedures Hermilo Gallego DO 02/26/2018 Procedures Hermilo Gallego DO 01/03/2018 Office visit Katharina Murdock APR N 10/08/2017 Office visit Jada Walker DIRECTOR EDUCATIONAL RADIO 10/06/2017 Office visit Jada Walker DIRECTOR EDUCATIONAL RADIO 10/07/2016 [facility] Jessica Dhaliwal MD 08/12/2016 Office visit Jada Walker DIRECTOR EDUCATIONAL RADIO 08/05/2016 Office visit Jada Walker DIRECTOR EDUCATIONAL RADIO 07/21/2016 Office visit Jada Walker DIRECTOR EDUCATIONAL RADIO 07/10/2016 [facility] Sage Green MD 07/09/2016 Office visit Valorie MCCLURE 07/09/2016 [facility] Jessica Dhaliwal MD 05/22/2016 Nurse visit Jada Walker DIRECTOR EDUCATIONAL RADIO 04/13/2016 Office visit Katharina Murdock APR N 04/04/2016 Nurse visit Jada Walker DIRECTOR EDUCATIONAL RADIO 03/26/2016 Office visit Jada Walker DIRECTOR EDUCATIONAL RADIO 02/29/2016 Office visit Jada Walker DIRECTOR EDUCATIONAL RADIO 01/09/2016 Office visit Jada Walker DIRECTOR EDUCATIONAL RADIO 11/14/2015 Office visit Jada Walker DIRECTOR EDUCATIONAL RADIO 07/16/2015 Nurse visit Jada Walker DIRECTOR EDUCATIONAL RADIO 11/30/2014 Office visit Sharon Villanueva 10/18/2014 Office visit Jada Walker DIRECTOR EDUCATIONAL RADIO 08/17/2014 Office visit Jaylene Rebolledo MD 06/28/2014 Office visit Jada Walker DIRECTOR EDUCATIONAL RADIO 06/01/2014 Office visit Sharon Villanueva 04/28/2014 Nurse visit Jada Walker DIRECTOR EDUCATIONAL RADIO 07/20/2013 Office visit Jada Walker DIRECTOR EDUCATIONAL RADIO 07/05/2013 Nurse visit Jada Walker DIRECTOR EDUCATIONAL RADIO 01/10/2013 Office visit Jada Walker DIRECTOR EDUCATIONAL RADIO 12/29/2012 Nurse visit Jada Walker DIRECTOR EDUCATIONAL RADIO 06/16/2012 Office visit Jada Walker DIRECTOR EDUCATIONAL RADIO 05/04/2012 Office visit Jada Walker DIRECTOR EDUCATIONAL RADIO 03/10/2012 Office visit Jada Walker DIRECTOR EDUCATIONAL RADIO 03/04/2012 Office visit Jada Walker DIRECTOR EDUCATIONAL RADIO 01/13/2012 Office visit Ezequiel Mahan MD 01/08/2012 Nurse visit Mikki Carrasco MD 12/16/2011 Voided Ezequiel Mahan MD 11/28/2011 Office visit Ezequiel Mahan MD 10/28/2011 Office visit Jada Pulliam DIRECTOR EDUCATIONAL RADIO 08/14/2011 Office visit Ezequiel Mahan MD 08/07/2011 Nurse visit Ezequiel Mahan MD 06/03/2011 Office visit Jada Pulliam DIRECTOR EDUCATIONAL RADIO 05/07/2011 Office visit Ezequiel Mahan MD 04/28/2011 [...]
--- OUTSIDE RECORDS SUMMARY | 2019-12-14 17:42 | XMS REPORT ---
Author Shandra Mata Organization [facility] o[facility] Address [address] [place] [id number] Care Team Providers Care Crew Car Driver Name Role Phone Hermilo Gallego PCP Jada Pulliam PreferredProvider Allergies and Adverse Reactions Name Reaction Notes ciprofloxacin migraine codeine sulfate Plan of Treatment Planned Activity Comments Planned Date Planned Time Plan/Goal Urine Culture, [place] Count 03/04/2016 12:00 AM lumbar pain 12/17/2015 [...] Seborrheic keratosis Active 11/30/2014 Nevus Active 02/26/2018 Vital Signs Date Time BP-Sys(mm[Hg] BP-Rehka(mm[Hg]) HR(bpm) RR(rpm) Temp WT HT HC BMI [...] Reviewed 02/29/2016 12:00 AM Rocephin 1 gram [facility]#2470-9265-38 Reviewe d 03/27/2016 12:00 AM INJECT SPINE LUMBAR/SACRAL Reviewed 03/27/2016 12:00 AM URNLS DIP STICK/TABLET RGNT AUTO W/O KATHRIN ROSCOPY Reviewed 03/26/2016 12:00 AM Benadryl, Up to 50 Mg [facility]# 5266-6198-58 Reviewed 04/04/2016 12:00 AM IMMUNOTHERAPY ONE INJECTION Reviewed 10/29/2011 12:00 AM URINALYSIS AUTO W/O SCOPE Reviewed 10/28/2011 12:00 AM COMPLETE CBC W/AUTO DIFF WBC Reviewed 10/28/2011 12:00 AM COMPREHEN METABOLIC PANEL Reviewed 10/28/2011 12:00 AM URINE CULTURE/COLONY COUNT Reviewed 05/22/2016 12:00 AM ALLERGEN SPECIFIC IGE Reviewed 05/22/2016 12:00 AM Decadron, Per 1 Mg [facility]# [address]-87 Re viewed 05/22/2016 12:00 AM Depo-Medrol 40mg [...] Reviewed 01/08/2012 12:00 AM Depo-Medrol 40 mg [facility]#[id number] Reviewe d 09/08/2016 12:00 AM METABOLIC PANEL TOTAL CA Reviewed 09/08/2016 12:00 AM COMPLETE CBC W/AUTO DIFF WBC Reviewed 09/08/2016 12:00 AM RADIOLOGIC EXAM CHEST 2 VIEWS FRONTAL&LA TERAL Reviewed 04/13/2016 12:00 AM Depo-Medrol, Per 80 Mg [facility]#[address]-93 Reviewed 04/13/2016 12:00 AM Decadron, Per 1 Mg [facility]# [address]-03 Re viewed 04/13/2016 12:00 AM THER/PROPH/DIAG INJ [...] 01/10/2013 12:00 AM Decadron, Per 1 Mg [facility]# [address]-67 Re viewed 01/10/2013 12:00 AM Depo-Medrol, Per 80 Mg [facility]#1827-0054-82 Reviewed 06/30/2018 12:[address] LUMBAR SPINE [...] 07/20/2013 12:00 AM Depo-Medrol, Per 80 Mg [facility]#7808-5582-12 Reviewed 07/20/2013 12:00 AM Decadron, Per 1 Mg [facility]# [address]-65 Re viewed 05/13/2010 12:00 AM COMPREHEN METABOLIC [...] Reviewed 10/24/2009 12:00 AM Kenalog 40 Mg [facility]#9601-2059-97 Review ed 11/30/2014 12:00 AM DESTRUCT PREMALG [...] CULT SET UP? YES 05/22/2016 3:30 PM X234-BmU D pteronyssinus <0. 10 U/zQM393-WdO D farinae <0.10 U/fEC311-ZsK Cat Dander <0.10 O337-LkG Dog Dander <0.10 U/iUN520-MxX [place] Grass <0.10 U/wYX520-CfS Blue[place] <0.10 U/yHV465-VlG [place] Grass <0.10 U/fOH051-KcZ Cockroach,Citizen Of [place] <0.10 R232-PeC Penicilliumchrysogen <0.10 L756-GmE Cladosporiumherbarum <0.10 I895-OxE Aspergillusfumigatus <0.10 D383-MuX Mucor racemosus <0.10 U957-WsG Alternariaalternata <0.10 Y004-UqQ Stemphyliumherbarum <0.10 C110-JkK Maple/[place] <0.10 U/uFX385-RyY [place], White <0.10 U/fSX959-AdK Elm, Citizen Of [place] <0.10 U/xXO295-UhS [place] <0.10 U/cSD599-LpY Merlin, White <0.10 U/aTX916-NiW Maple LeafSycamore <0.10 U/mBO808-YlV [place] <0.10 U/gAO648-VsR Ragweed, Short <0.10 Y799-XxK [place] <0.10 W009- IgE Plantain,Emirati <0.10 E224-BsX Thistle, Martiniquais <0.10 H892-NtX Pigweed, Common <0.10 U862-OcC Sheep [place] <0.10 Z109-JbM Milk <0.10 X889-XyU Wheat <0.10 U/gPJ251-EkS [place] <0.10 U/dUR443-WjU Peanut <0.10 U/rHR981-SfV Soybean <0.10 U/aBE010-MrD Pork <0.10 U/oVF596-ZsX Beef <0.10 U/xDMA83-XuD Food Mix(Seafoods) Negative M988-JoW Egg, Whole <0.10 U/gZG031-MlL Chocolate/[place] <0.10 07/21/2016 3:26 PM GLUCOSE 104.0 mg/dLSODIUM [...] Nevus 02/26/2018 [place] Sep 12 2011 10:29AM Anxiety state; other Aug 14 2011 3:10PM [...] Date Medicare Part B Medicare Of [place] [id number] N/A [employer] Insurance [facility] hia Citizen Of [place] Life Ins [id number] N/A Medicare Part A ZZZMedicare P A - Preventive [id number] N/A Medicare RHC Medicare RH [id number] N/A Medicare Part A Medicare - Lab/Xray [id number] N/A [id number] July 05, 2013 Medicare Part A Medicare Part A [id number] Friday, July 05, 2013 [facility] [employer] Insurance [place] Citizen Of [place] Retriement [id number] N/A Medicare Part B Medicare Of [place] [id number] Friday, July 05, 2013 History of Encounters Visit Date Visit Type Provider 01/11/2019 Office visit Hermilo Gallego DO 08/24/2018 Office visit Chadd Lucio MD 08/02/2018 Procedures Chadd Lucio MD 07/19/2018 [facility] Chadd Lucio MD 07/16/2018 Office visit Jasmyn LOCKHART RN 07/12/2018 [facility] Jessica Dhaliwal MD 07/05/2018 Office visit Matt Rice APR N 06/29/2018 Office visit Chadd Lucio MD 04/20/2018 Office visit Jada Pulliam KILN MAINTENANCE 03/19/2018 Procedures Hermilo Gallego DO 03/12/2018 Procedures Hermilo Gallego DO 02/26/2018 Procedures Hermilo Gallego DO 01/03/2018 Office visit Katharina Murdock APR N 10/08/2017 Office visit Jada Walker KILN MAINTENANCE 10/06/2017 Office visit Jada Walker KILN MAINTENANCE 10/07/2016 [facility] Jessica Dhaliwal MD 08/12/2016 Office visit Jada Walker KILN MAINTENANCE 08/05/2016 Office visit Jada Walker KILN MAINTENANCE 07/21/2016 Office visit Jada Walker KILN MAINTENANCE 07/10/2016 [facility] Sage Green MD 07/09/2016 Office visit Valorie Rocha VESSEL OPERATOR 07/09/2016 [facility] Jessica Dhaliwal MD 05/22/2016 Nurse visit Jada Walker KILN MAINTENANCE 04/13/2016 Office visit Katharina Murdock APR N 04/04/2016 Nurse visit Jada Walker KILN MAINTENANCE 03/26/2016 Office visit Jada Walker KILN MAINTENANCE 02/29/2016 Office visit Jada Walker KILN MAINTENANCE 01/09/2016 Office visit Jada Walker KILN MAINTENANCE 11/14/2015 Office visit Jada Walker KILN MAINTENANCE 07/16/2015 Nurse visit Jada Walker KILN MAINTENANCE 11/30/2014 Office visit Sharon Villanueva 10/18/2014 Office visit Jada Walker KILN MAINTENANCE 08/17/2014 Office visit Jaylene Rebolledo MD 06/28/2014 Office visit Jada Walker KILN MAINTENANCE 06/01/2014 Office visit Sharon Villanueva 04/28/2014 Nurse visit Jada Walker KILN MAINTENANCE 07/20/2013 Office visit Jada Walker KILN MAINTENANCE 07/05/2013 Nurse visit Jada Walker KILN MAINTENANCE 01/10/2013 Office visit Jada Walker KILN MAINTENANCE 12/29/2012 Nurse visit Jada Walker KILN MAINTENANCE 06/16/2012 Office visit Jada Walker KILN MAINTENANCE 05/04/2012 Office visit Jada Walker KILN MAINTENANCE 03/10/2012 Office visit Jada Walker KILN MAINTENANCE 03/04/2012 Office visit Jada Walker KILN MAINTENANCE 01/13/2012 Office visit Ezequiel Mahan MD 01/08/2012 Nurse visit Mikki Carrasco MD 12/16/2011 Neris Mahan MD 11/28/2011 Office visit Ezequiel Mahan MD 10/28/2011 Office visit Jada Pulliam KILN MAINTENANCE 08/14/2011 Office visit Ezequiel Mahan MD 08/07/2011 Nurse visit Ezequiel Mahan MD 06/03/2011 Office visit Jada Pulliam KILN MAINTENANCE 05/07/2011 Office visit Ezequiel Mahan MD 04/28/2011 Neris Mahan MD 11/18/2010 Office visit Braydon Ramirez [...]
--- OUTSIDE RECORDS SUMMARY | 2019-12-14 17:43 | XMS REPORT ---
Author Author Shandra Lucio Organization [facility] oup Address [address] [place] [id number] Care Team Providers Care Refresh Technician Name Role Phone Chadd Lucio PCP Jada Pulliam PreferredProvider Allergies and Adverse Reactions Name Reaction Notes ciprofloxacin migraine codeine sulfate Plan of Treatment Planned Activity Comments Planned Date Planned Time Plan/Goal Urine Culture, [place] Count 03/04/2016 12:00 AM lumbar pain 12/17/2015 [...] TO AFFECTED AREA ONCE DAILY AT BEDTIME gabapentin 300 mg oral capsule 11/24/2016 TAKE ONE C APSULE BY MOUTH AT BEDTIME Leighann-D 12 Hour 60-120 mg [...] Active 02/26/2018 Vital Signs Date Time BP-Sys(mm[Hg] BP-Rekha(mm[Hg]) HR(bpm) RR(rpm) Temp WT HT HC BMI BSA BMI Percentile O2 Sat(%) 08/24/2018 9:47:00 AM 126 mmHg 84 mmHg 99 bpm 98.1 F 238 lbs 68 in 36.1874 kg/m 2.2758 m 97 % 07/16/2018 5:30:00 PM 150 mmHg 100 mmHg 94 bpm 18 rpm 97.8 F 229.25 lbs 68 in 34.86 kg/m2 2.23 m2 96 % 07/05/2018 7:10:00 PM 162 mmHg 88 mmHg 104 bpm 97.9 F 230 lbs 68 in 34.971 kg/m 2.2373 m 95 % 06/29/2018 11:16:00 AM 136 mmHg 76 mmHg 105 bpm 98.9 F 225.5 lbs 68 i n 34.29 kg/m2 2.22 m2 95 % 04/20/2018 1:19:00 PM 126 mmHg 72 mmHg 70 bpm 18 rpm 98.1 F 223.5 lbs 68 in 33.9827 kg/m 2.2054 m 95 % 03/19/2018 1:36:00 PM 129 mmHg 78 mmHg 68 bpm 20 rpm 97.5 F 222 lbs 68 in 33.75 kg/m2 2.20 m2 03/12/2018 10:36:00 AM 129 mmHg 78 mmHg 68 bpm 20 rpm 97.5 F 222.5 lbs 68 in 33.8307 kg/m 2.2005 m 02/26/2018 9:58:00 AM 147 mmHg 86 mmHg 60 bpm 20 rpm 97.6 F 221 lbs 68 in 33.60 kg/m2 2.19 m2 01/03/2018 1:13:00 PM 138 mmHg [...] Reviewed 02/29/2016 12:00 AM Rocephin 1 gram [facility]#0641-6914-65 Reviewe d 03/27/2016 12:00 AM INJECT SPINE LUMBAR/SACRAL Reviewed 03/27/2016 12:00 AM URNLS DIP STICK/TABLET RGNT AUTO W/O KATHRIN ROSCOPY Reviewed 03/26/2016 12:00 AM Benadryl, Up to 50 Mg [facility]# 3344-3949-79 Reviewed 04/04/2016 12:00 AM IMMUNOTHERAPY ONE INJECTION Reviewed 10/29/2011 12:00 AM URINALYSIS AUTO W/O SCOPE Reviewed 10/28/2011 12:00 AM COMPLETE CBC W/AUTO DIFF WBC Reviewed 10/28/2011 12:00 AM COMPREHEN METABOLIC PANEL Reviewed 10/28/2011 12:00 AM URINE CULTURE/COLONY COUNT Reviewed 05/22/2016 12:00 AM ALLERGEN SPECIFIC IGE Reviewed 05/22/2016 12:00 AM Decadron, Per 1 Mg [facility]# [address]-51 Re viewed 05/22/2016 12:00 AM Depo-Medrol 40mg [...] Reviewed 01/08/2012 12:00 AM Depo-Medrol 40 mg [facility]#[id number] Reviewe d 09/08/2016 12:00 AM METABOLIC PANEL TOTAL CA Reviewed 09/08/2016 12:00 AM COMPLETE CBC W/AUTO DIFF WBC Reviewed 09/08/2016 12:00 AM RADIOLOGIC EXAM CHEST 2 VIEWS FRONTAL&LA TERAL Reviewed 04/13/2016 12:00 AM Depo-Medrol, Per 80 Mg [facility]#[address]-12 Reviewed 04/13/2016 12:00 AM Decadron, Per 1 Mg [facility]# [address]-19 Re viewed 04/13/2016 12:00 AM THER/PROPH/DIAG INJ [...] 01/10/2013 12:00 AM Decadron, Per 1 Mg [facility]# [address]-87 Re viewed 01/10/2013 12:00 AM Depo-Medrol, Per 80 Mg [facility]#4977-6206-01 Reviewed 06/30/2018 12:[address] LUMBAR SPINE [...] DIP STICK/TABLET RGNT AUTO W/O KATHRIN ROSCOPY Returned 07/26/2018 12:00 AM RADEX SPINE LUMBOSACRAL 2/3 VIEWS Return ed 08/02/2018 12:00 AM REMOVE SUTURES SAME SURGEON Reviewed 07/05/2013 12:00 AM Prolia, 60 Mg Reviewed 07/20/2013 12:00 AM THER/PROPH/DIAG INJ SC/IM Reviewed 07/20/2013 12:00 AM Depo-Medrol, Per 80 Mg [facility]#8907-9902-02 Reviewed 07/20/2013 12:00 AM Decadron, Per 1 Mg [facility]# [address]-50 Re viewed 05/13/2010 12:00 AM COMPREHEN METABOLIC [...] Reviewed 10/24/2009 12:00 AM Kenalog 40 Mg [facility]#1945-5[address]-66 Review ed 11/30/2014 12:00 AM DESTRUCT PREMALG [...] CULT SET UP? YES 05/22/2016 3:30 PM D304-UlZ D pteronyssinus <0. 10 U/sIG895-PiW D farinae <0.10 U/cIG406-FvT Cat Dander <0.10 P463-FrA Dog Dander <0.10 U/oIS607-LsS [place] Grass <0.10 U/lRX222-UeJ Blue[place] <0.10 U/kCF930-IeO [place] Grass <0.10 U/aOL632-CgC Cockroach,Tongan <0.10 S934-EwP Penicilliumchrysogen <0.10 I452-TpW Cladosporiumherbarum <0.10 X271-UnX Aspergillusfumigatus <0.10 G458-JgG Mucor racemosus <0.10 A460-YxC Alternariaalternata <0.10 C035-GsD Stemphyliumherbarum <0.10 T525-PxU Maple/[place] <0.10 U/vPR067-YrE [place], White <0.10 U/bZK283-EvG Elm, Tongan <0.10 U/dUS819-MeJ [place] <0.10 U/bWW332-GqG Merlin, White <0.10 U/gFL492-QyI Maple LeafSycamore <0.10 U/nIX965-OnH [place] <0.10 U/iWB923-NoT Ragweed, [place] <0.10 Q684-SjF [place] <0.10 W009- IgE Plantain,Ukrainian <0.10 W134-KkI Thistle, Luxembour[place] <0.10 C550-JbI Pigweed, Common <0.10 J483-WzQ Sheep [place] <0.10 U607-UfV Milk <0.10 P483-DfG Wheat <0.10 U/tAI386-UbM [place] <0.10 U/bVF545-MrY Peanut <0.10 U/xGM512-YkJ Soybean <0.10 U/sQR618-TgG Pork <0.10 U/gHH360-HzX Beef <0.10 U/cEMZ56-HxN Food Mix(Seafoods) Negative A881-GrL Egg, Whole <0.10 U/eNZ972-LmX Chocolate/[place] <0.10 07/21/2016 3:26 PM GLUCOSE 104.0 mg/dLSODIUM [...] Ql Strip positive WBC # Ur trace History Of Immunizations Name Date Admin Mfg [...] S/P lumbar fusion Dec 06 2018 10:38AM Payers Insurance Name Company Name Plan Name Plan Number Policy Number Sanjay cy Group Number Start Date Medicare Part B Medicare Of [place] [id number] N/A [employer] [facility] [employer]ia [place] Life Ins [id number] N/A Medicare Part A ZZZMedicare P A - Preventive [id number] N/A Medicare RHC Medicare RHC [id number] N/A Medicare Part A Medicare - Lab/Xray [id number] N/A BCBS Bcbs [facility] [id number] July 05, 2013 Medicare Part A Medicare Part A [id number] Friday, July 05, 2013 [employer] [place] Retriement [id number] N/A Medicare Part B Medicare Of [place] [id number] Friday, July 05, 2013 History of Encounters Visit Date Visit Type Provider 08/24/2018 Office visit Chadd Lucio MD 08/02/2018 Procedures Chadd Lucio MD 07/19/2018 [facility] Chadd Lucio MD 07/16/2018 Office visit Jasmyn LOKCHART RN 07/12/2018 [facility] Jessica Dhaliwal MD 07/05/2018 Office visit Matt Rice APR N 06/29/2018 Office visit Chadd Lucio MD 04/20/2018 Office visit Jada Pulliam ONCOLOGY REP 03/19/2018 Procedures Hermilo Gallego DO 03/12/2018 Procedures Hermilo Gallego DO 02/26/2018 Procedures Hermilo Bocarol DO 01/03/2018 Office visit Katharina Murdock APR N 10/08/2017 Office visit Jada Pulliam ONCOLOGY REP 10/06/2017 Office visit Jada Pulliam ONCOLOGY REP 10/07/2016 [facility] Jessica Dhaliwal MD 08/12/2016 Office visit Jada Pulliam ONCOLOGY REP 08/05/2016 Office visit Jada Pulliam ONCOLOGY REP 07/21/2016 Office visit Jada Pulliam ONCOLOGY REP 07/10/2016 [facility] Sage Green MD 07/09/2016 Office visit Valorie MCCLURE 07/09/2016 [facility] Jessica Dhaliwal MD 05/22/2016 Nurse visit Jada Walker ONCOLOGY REP 04/13/2016 Office visit Katharina [place]uy [place] APR N 04/04/2016 Nurse visit Jada Walker ONCOLOGY REP 03/26/2016 Office visit Jada Walker ONCOLOGY REP 02/29/2016 Office visit Jada Walker ONCOLOGY REP 01/09/2016 Office visit Jada Walker ONCOLOGY REP 11/14/2015 Office visit Jada Walker ONCOLOGY REP 07/16/2015 Nurse visit Jada Walker ONCOLOGY REP 11/30/2014 Office visit Sharon Villanueva 10/18/2014 Office visit Jada Walker ONCOLOGY REP 08/17/2014 Office visit Jaylene Rebolledo MD 06/28/2014 Office visit Jada Walker ONCOLOGY REP 06/01/2014 Office visit Sharon Villanueva 04/28/2014 Nurse visit Jada Walker ONCOLOGY REP 07/20/2013 Office visit Jada Walker ONCOLOGY REP 07/05/2013 Nurse visit Jada Walker ONCOLOGY REP 01/10/2013 Office visit Jada Walker ONCOLOGY REP 12/29/2012 Nurse visit Jada Walker ONCOLOGY REP 06/16/2012 Office visit Jada Walker ONCOLOGY REP 05/04/2012 Office visit Jada Walker ONCOLOGY REP 03/10/2012 Office visit Jada Walker ONCOLOGY REP 03/04/2012 Office visit Jada Walker ONCOLOGY REP 01/13/2012 Office visit Ezequiel Mahan MD 01/08/2012 Nurse visit Mikki Carrasco MD 12/16/2011 Voided Ezequiel Mahan MD 11/28/2011 Office visit Ezequiel Mahan MD 10/28/2011 Office visit Jada Pulliam ONCOLOGY REP 08/14/2011 Office visit Ezequiel Mahan MD 08/07/2011 Nurse visit Ezequiel Mahan MD 06/03/2011 Office visit Jada Pulliam ONCOLOGY REP 05/07/2011 Office visit Ezequiel Mahan MD 04/28/2011 [...]
--- OUTSIDE RECORDS SUMMARY | 2019-12-14 17:44 | XMS REPORT ---
Author Author Shandra Lucio Organization [facility] Address [address] [place] [id number] Care Team Providers Care [facility] Director Name Role Phone Chadd Lucio PCP Jada Pulliam PreferredProvider Allergies and Adverse Reactions Name Reaction Notes ciprofloxacin migraine codeine sulfate Plan of Treatment Planned Activity Comments Planned Date Planned Time Plan/Goal Urine Culture, [place] Count 03/04/2016 12:00 AM lumbar pain 12/17/2015 [...] Reviewed 02/29/2016 12:00 AM Rocephin 1 gram [facility]#7455-8376-56 Reviewe d 03/27/2016 12:00 AM INJECT SPINE LUMBAR/SACRAL Reviewed 03/27/2016 12:00 AM URNLS DIP STICK/TABLET RGNT AUTO W/O KATHRIN ROSCOPY Reviewed 03/26/2016 12:00 AM Benadryl, Up to 50 Mg [facility]# 6494-6693-70 Reviewed 04/04/2016 12:00 AM IMMUNOTHERAPY ONE INJECTION Reviewed 10/29/2011 12:00 AM URINALYSIS AUTO W/O SCOPE Reviewed 10/28/2011 12:00 AM COMPLETE CBC W/AUTO DIFF WBC Reviewed 10/28/2011 12:00 AM COMPREHEN METABOLIC PANEL Reviewed 10/28/2011 12:00 AM URINE CULTURE/COLONY COUNT Reviewed 05/22/2016 12:00 AM ALLERGEN SPECIFIC IGE Reviewed 05/22/2016 12:00 AM Decadron, Per 1 Mg [facility]# [address]-05 Re viewed 05/22/2016 12:00 AM Depo-Medrol 40mg [...] Reviewed 01/08/2012 12:00 AM Depo-Medrol 40 mg [facility]#[id number] Reviewe d 09/08/2016 12:00 AM METABOLIC PANEL TOTAL CA Reviewed 09/08/2016 12:00 AM COMPLETE CBC W/AUTO DIFF WBC Reviewed 09/08/2016 12:00 AM RADIOLOGIC EXAM CHEST 2 VIEWS FRONTAL&LA TERAL Reviewed 04/13/2016 12:00 AM Depo-Medrol, Per 80 Mg [facility]#[address]-76 Reviewed 04/13/2016 12:00 AM Decadron, Per 1 Mg [facility]# [address]-71 Re viewed 04/13/2016 12:00 AM THER/PROPH/DIAG INJ [...] 01/10/2013 12:00 AM Decadron, Per 1 Mg [facility]# [address]-71 Re viewed 01/10/2013 12:00 AM Depo-Medrol, Per 80 Mg [facility]#6504-4373-79 Reviewed 06/30/2018 12:[address] LUMBAR SPINE [...] 07/20/2013 12:00 AM Depo-Medrol, Per 80 Mg [facility]#0029[address]-76 Reviewed 07/20/2013 12:00 AM Decadron, Per 1 Mg [facility]# [address]-13 Re viewed 05/13/2010 12:00 AM COMPREHEN METABOLIC [...] 10/24/2009 12:00 AM Kenalog 40 Mg [facility]#5621-9138-78 Review ed 11/30/2014 12:00 AM DESTRUCT PREMALG [...] CULT SET UP? YES 05/22/2016 3:30 PM M646-PdC D pteronyssinus <0. 10 U/vVS021-GoR D farinae <0.10 U/uFR107-WjI Cat Dander <0.10 Z072-OxR Dog Dander <0.10 U/eIY959-DhH [place] Grass <0.10 U/pCH101-TtQ Bluegrass,[place] <0.10 U/nBX250-RwZ [place] Grass <0.10 U/aKC437-ZvS Cockroach,Saudi Arabian <0.10 Y992-KbM Penicilliumchrysogen <0.10 B755-QoH Cladosporiumherbarum <0.10 E554-KoJ Aspergillusfumigatus <0.10 X072-EtB Mucor racemosus <0.10 O833-UoT Alternariaalternata <0.10 Z269-PkM Stemphyliumherbarum <0.10 L870-PqU Maple/[place] <0.10 U/aXE041-JmP [place], White <0.10 U/gPJ100-KuI Elm, [place] <0.10 U/zDT843-GpN [place] <0.10 U/eAT043-SoO Merlin, White <0.10 U/mXW430-CsH Maple LeafSycamore <0.10 U/jQT317-ZfK [place] <0.10 U/zXT213-QmZ Ragweed, Short <0.10 W221-KcN [place] <0.10 W009- IgE Plantain,Sudanese <0.10 H054-DaB Thistle, [place] Korean <0.10 Z887-QkJ Pigweed, Common <0.10 L526-PpC Sheep [place] <0.10 Q860-NhU Milk <0.10 Y754-VrD Wheat <0.10 U/sDQ794-IhK [place] <0.10 U/bGF288-JjT Peanut <0.10 U/mYA298-QyK Soybean <0.10 U/qDH919-BmX Pork <0.10 U/nAH147-XeJ Beef <0.10 U/iTFC16-KhR Food Mix(Seafoods) Negative Z397-LoT Egg, Whole <0.10 U/oYN271-GzQ Chocolate/[place] <0.10 07/21/2016 3:26 PM GLUCOSE 104.0 mg/dLSODIUM [...] Date Medicare Part B Medicare Of [place] [id number] N/A [employer]ia [place] Life Ins [id number] N/A Medicare Part A ZZZMedicare P A - Preventive [id number] N/A Medicare RHC Medicare RHC [id number] N/A Medicare Part A Medicare - Lab/Xray [id number] N/A BCBS Bcbs [facility] [id number] July 05, 2013 Medicare Part A Medicare Part A [id number] Friday, July 05, 2013 [employer] [place] Retriement [id number] N/A Medicare Part B Medicare Of [place] [id number] Friday, July 05, 2013 History of Encounters Visit Date Visit Type Provider 08/24/2018 Office visit Chadd Lucio MD 08/02/2018 Procedures Chadd Lucio MD 07/19/2018 [facility] Chadd Lucio MD 07/16/2018 Office visit Jasmyn LOCKHART RN 07/12/2018 [facility] Jessica Dhaliwal MD 07/05/2018 Office visit Matt Rice APR N 06/29/2018 Office visit Chadd Lucio MD 04/20/2018 Office visit Jada Pulliam SPRAY GUN REPAIRER 03/19/2018 Procedures Hermilo Gallego DO 03/12/2018 Procedures Hermilo Gallego DO 02/26/2018 Procedures Hermilo Bocarol DO 01/03/2018 Office visit Katharina Murdock APR N 10/08/2017 Office visit Jada Pulliam SPRAY GUN REPAIRER 10/06/2017 Office visit Jada Pulliam SPRAY GUN REPAIRER 10/07/2016 [facility] Jessica Dhaliwal MD 08/12/2016 Office visit Jada Pulliam SPRAY GUN REPAIRER 08/05/2016 Office visit Jada Pulliam SPRAY GUN REPAIRER 07/21/2016 Office visit Jada Pulliam SPRAY GUN REPAIRER 07/10/2016 [facility] Sage Green MD 07/09/2016 Office visit Valorie MCCLURE 07/09/2016 [facility] Jessica Dhaliwal MD 05/22/2016 Nurse visit Jada Walker SPRAY GUN REPAIRER 04/13/2016 Office visit Katharina LGuy [place] APR N 04/04/2016 Nurse visit Jada Walker SPRAY GUN REPAIRER 03/26/2016 Office visit Jada Walker SPRAY GUN REPAIRER 02/29/2016 Office visit Jada Walker SPRAY GUN REPAIRER 01/09/2016 Office visit Jada Walker SPRAY GUN REPAIRER 11/14/2015 Office visit Jada Walker SPRAY GUN REPAIRER 07/16/2015 Nurse visit Jada Walker SPRAY GUN REPAIRER 11/30/2014 Office visit Sharon Villanueva 10/18/2014 Office visit Jada Walker SPRAY GUN REPAIRER 08/17/2014 Office visit Jaylene Rebolledo MD 06/28/2014 Office visit Jada Walker SPRAY GUN REPAIRER 06/01/2014 Office visit Sharon Villanueva 04/28/2014 Nurse visit Jada Walker SPRAY GUN REPAIRER 07/20/2013 Office visit Jada Walker SPRAY GUN REPAIRER 07/05/2013 Nurse visit Jada Walker SPRAY GUN REPAIRER 01/10/2013 Office visit Jada Walker SPRAY GUN REPAIRER 12/29/2012 Nurse visit Jada Walker SPRAY GUN REPAIRER 06/16/2012 Office visit Jada Walker SPRAY GUN REPAIRER 05/04/2012 Office visit Jaad Walker SPRAY GUN REPAIRER 03/10/2012 Office visit Jada Walker SPRAY GUN REPAIRER 03/04/2012 Office visit Jada Walker SPRAY GUN REPAIRER 01/13/2012 Office visit Ezequiel Mahan MD 01/08/2012 Nurse visit Mikki Carrasco MD 12/16/2011 Voided Ezequiel Mahan MD 11/28/2011 Office visit Ezequiel Mahan MD 10/28/2011 Office visit Jada Pulliam SPRAY GUN REPAIRER 08/14/2011 Office visit Ezequiel Mahan MD 08/07/2011 Nurse visit Ezequiel Mahan MD 06/03/2011 Office visit Jada Pulliam SPRAY GUN REPAIRER 05/07/2011 Office visit Ezequiel Mahan MD 04/28/2011 [...]
--- OUTSIDE RECORDS SUMMARY | 2019-12-14 17:45 | XMS REPORT ---
Author Author Shandra Lucio Organization [facility] Address [address] [place] [id number] Care Team Providers Care Assistant Name Role Phone Chadd Lucio PCP Jada Pulliam PreferredProvider Allergies and Adverse Reactions Name Reaction Notes ciprofloxacin migraine codeine sulfate Plan of Treatment Planned Activity Comments Planned Date Planned Time Plan/Goal Urine Culture, [place] Count 03/04/2016 12:00 AM lumbar pain 12/17/2015 2:00 PM consult for [...] ONE C APSULE BY MOUTH AT BEDTIME atorvastatin 40 mg oral tablet 02/24/2018 T KIDNRA ONE TABLET BY MOUTH ONCE DAILY AT BEDTIME Leighann-D 12 Hour [...] INSERT ONE APPLICATORFUL VAGINALLY TWICE A WEEK Name Start Date Expiration Date SIG Comments [...] Reviewed 02/29/2016 12:00 AM Rocephin 1 gram [facility]#4072-0046-36 Reviewe d 03/27/2016 12:00 AM INJECT SPINE LUMBAR/SACRAL Reviewed 03/27/2016 12:00 AM URNLS DIP STICK/TABLET RGNT AUTO W/O KATHRIN ROSCOPY Reviewed 03/26/2016 12:00 AM Benadryl, Up to 50 Mg [facility]# 2291-1977-66 Reviewed 04/04/2016 12:00 AM IMMUNOTHERAPY ONE INJECTION Reviewed 10/29/2011 12:00 AM URINALYSIS AUTO W/O SCOPE Reviewed 10/28/2011 12:00 AM COMPLETE CBC W/AUTO DIFF WBC Reviewed 10/28/2011 12:00 AM COMPREHEN METABOLIC PANEL Reviewed 10/28/2011 12:00 AM URINE CULTURE/COLONY COUNT Reviewed 05/22/2016 12:00 AM ALLERGEN SPECIFIC IGE Reviewed 05/22/2016 12:00 AM Decadron, Per 1 Mg [facility]# [address]-07 Re viewed 05/22/2016 12:00 AM Depo-Medrol 40mg [...] Reviewed 01/08/2012 12:00 AM Depo-Medrol 40 mg [facility]#[id number] Reviewe d 09/08/2016 12:00 AM METABOLIC PANEL TOTAL CA Reviewed 09/08/2016 12:00 AM COMPLETE CBC W/AUTO DIFF WBC Reviewed 09/08/2016 12:00 AM RADIOLOGIC EXAM CHEST 2 VIEWS FRONTAL&LA TERAL Reviewed 04/13/2016 12:00 AM Depo-Medrol, Per 80 Mg [place]#[address]-30 Reviewed 04/13/2016 12:00 AM Decadron, Per 1 Mg [facility]# [address]-93 Re viewed 04/13/2016 12:00 AM THER/PROPH/DIAG INJ [...] 01/10/2013 12:00 AM Decadron, Per 1 Mg [facility]# [address]-01 Re viewed 01/10/2013 12:00 AM Depo-Medrol, Per 80 Mg [facility]#7986-3204-40 Reviewed 06/30/2018 12:[address] LUMBAR SPINE W/O DYE Returned 06/30/2018 12:00 AM COMPLETE CBC W/AUTO DIFF WBC Returned 06/30/2018 12:00 AM PROTHROMBIN TIME Returned 06/30/2018 12:00 AM THROMBOPLASTIN TIME PARTIAL Returned 06/30/2018 12:00 AM URINALYSIS AUTO W/O SCOPE Returned 06/30/2018 12:00 AM METABOLIC PANEL TOTAL CA Returned 06/30/2018 12:00 AM ELECTROCARDIOGRAM TRACING Reviewed 06/30/2018 12:00 AM CHEST X-RAY 2VW FRONTAL&LATL Returned 07/05/2018 7:22 PM URINALYSIS AUTO W/O SCOPE Reviewed 07/05/2018 12:00 AM Rocephin 1 gram Injection Reviewed 07/05/2018 12:00 AM URINE BACTERIA CULTURE Returned 07/05/2018 12:00 AM THER/PROPH/DIAG INJ SC/IM Reviewed 07/15/2018 12:00 AM URNLS DIP STICK/TABLET RGNT AUTO W/O KATHRIN ROSCOPY Returned 07/26/2018 12:00 AM RADEX SPINE LUMBOSACRAL 2/3 VIEWS Return ed 08/02/2018 12:00 AM REMOVE SUTURES SAME SURGEON Reviewed 07/05/2013 12:00 AM Prolia, 60 Mg Reviewed 07/20/2013 12:00 AM THER/PROPH/DIAG INJ SC/IM Reviewed 07/20/2013 12:00 AM Depo-Medrol, Per 80 Mg [facility]#0301-6829-44 Reviewed 07/20/2013 12:00 AM Decadron, Per 1 Mg [facility]# [address]-64 Re viewed 05/13/2010 12:00 AM COMPREHEN METABOLIC [...] Reviewed 10/24/2009 12:00 AM Kenalog 40 Mg [facility]#0863-5821-97 Review ed 12/26/2014 12:00 AM Prolia, 60 Mg Reviewed [...] CULT SET UP? YES 05/22/2016 3:30 PM C785-GyP D pteronyssinus <0. 10 U/hTR181-SaJ D farinae <0.10 U/iTG145-NhS Cat Dander <0.10 A115-ZwS Dog Dander <0.10 U/dQH219-AzS [place] Grass <0.10 U/xXM180-SvH Bluegrass,[facility] <0.10 U/dGX708-QcH [place] Grass <0.10 U/qSP038-JtX Cockroach,Greenlandic <0.10 C690-NjE Penicilliumchrysogen <0.10 F706-GrH Cladosporiumherbarum <0.10 Z673-OcG Aspergillusfumigatus <0.10 T361-QbD Mucor racemosus <0.10 L869-ByA Alternariaalternata <0.10 B796-FyM Stemphyliumherbarum <0.10 E206-KlL Maple/[place] <0.10 U/xBU360-JhJ [place], White <0.10 U/cBN722-DzP Elm, Green[place]ic <0.10 U/tGQ918-NoC [place] <0.10 U/gKW685-PoV Merlin, White <0.10 U/eGC992-BbT Maple LeafSycamore <0.10 U/dPH274-JlN [place] <0.10 U/uJA419-MnW Ragweed, Short <0.10 M935-IqG [place] <0.10 W009- IgE Plantain,Macedonian <0.10 E414-YsP Thistle, Citizen Of [place] <0.10 Z521-KrK Pigweed, Common <0.10 D153-FbB Sheep [place] <0.10 X800-LtT Milk <0.10 F260-NwL Wheat <0.10 U/mOF337-QqS [place] <0.10 U/gWJ932-XeZ Peanut <0.10 U/sPL843-VmM Soybean <0.10 U/lZN774-DzK Pork <0.10 U/rTP509-FsP Beef <0.10 U/cKTJ55-XkR Food Mix(Seafoods) Negative F528-SuS Egg, Whole <0.10 U/zUN726-WpJ Chocolate/[place] <0.10 07/21/2016 3:26 PM GLUCOSE 104.0 mg/dLSODIUM [...] Elevated Blood Pressure Without Diagnosis Of Hypertension 2010 3:18PM Dysuria Jun 03 2011 4:45PM [...] S/P lumbar fusion Aug 24 2018 9:51AM Payers Insurance Name Company Name Plan Name Plan Number Policy Number Sanjay cy Group Number Start Date Medicare Part B Medicare Of [place] [id number] N/A [employer] Insurance Pro[employer]ati [facility] hia [place] Life Ins [id number] N/A Medicare Part A ZZZMedicare P A - Preventive [id number] N/A Medicare RHC Medicare RHC [id number] N/A Medicare Part A Medicare - Lab/Xray [id number] N/A BCBS Bcbs [facility] [id number] July 05, 2013 Medicare Part A Medicare Part A [id number] Friday, July 05, 2013 [employer] [place] Retriement [id number] N/A Medicare Part B Medicare Of [place] [id number] Friday, July 05, 2013 History of Encounters Visit Date Visit Type Provider 08/24/2018 Office visit Chadd Lucio MD 08/02/2018 Procedures Chadd Lucio MD 07/19/2018 Hospital Chadd Lucio MD 07/16/2018 Office visit Jasmyn Dos Santos TERADATA ARCHITECT 07/12/2018 [facility] Jessica Dhaliwal MD 07/05/2018 Office visit Matt Rice APR N 06/29/2018 Office visit Chadd Lucio MD 04/20/2018 Office visit Jada Pulliam TERADATA ARCHITECT 03/19/2018 Procedures Hermilo Bocarol DO 03/12/2018 Procedures Hermilo Bouman DO 02/26/2018 Procedures Hermilo Bouman DO 01/03/2018 Office visit Katharina Murdock APR N 10/08/2017 Office visit Jada Pulliam TERADATA ARCHITECT 10/06/2017 Office visit Jada Pulliam TERADATA ARCHITECT 10/07/2016 [facility] Jessica Dhaliwal MD 08/12/2016 Office visit Jada Pulliam TERADATA ARCHITECT 08/05/2016 Office visit Jada Pulliam TERADATA ARCHITECT 07/21/2016 Office visit Jada Pulliam TERADATA ARCHITECT 07/10/2016 [facility] Sage Green MD 07/09/2016 Office visit Valorie MCCLURE 07/09/2016 [facility] Jessica Dhaliwal MD 05/22/2016 Nurse visit Jada Pulliam TERADATA ARCHITECT 04/13/2016 Office visit Katharina Murdock APR N 04/04/2016 Nurse visit Jada Pulliam TERADATA ARCHITECT 03/26/2016 Office visit Jada Pulliam TERADATA ARCHITECT 02/29/2016 Office visit Jada Pulliam TERADATA ARCHITECT 01/09/2016 Office visit Jada Pulliam TERADATA ARCHITECT 11/14/2015 Office visit Jada Walker TERADATA ARCHITECT 07/16/2015 Nurse visit Jada Pulliam TERADATA ARCHITECT 11/30/2014 Office visit Sharon Villanueva 10/18/2014 Office visit Jada Pulliam TERADATA ARCHITECT 08/17/2014 Office visit Jaylene Rebolledo MD 06/28/2014 Office visit Jada Pulliam TERADATA ARCHITECT 06/01/2014 Office visit Sharon Villanueva 04/28/2014 Nurse visit Jada Walker TERADATA ARCHITECT 07/20/2013 Office visit Jada Walker TERADATA ARCHITECT 07/05/2013 Nurse visit Jada Walker TERADATA ARCHITECT 01/10/2013 Office visit Jada Pulliam TERADATA ARCHITECT 12/29/2012 Nurse visit Jada Pulliam TERADATA ARCHITECT 06/16/2012 Office visit Jada Pulliam TERADATA ARCHITECT 05/04/2012 Office visit Jada Pulliam TERADATA ARCHITECT 03/10/2012 Office visit Jada Pulliam TERADATA ARCHITECT 03/04/2012 Office visit Jada Pulliam TERADATA ARCHITECT 01/13/2012 Office visit Ezequiel Mahan MD 01/08/2012 Nurse visit Mikki Carrasco MD 12/16/2011 Voided Ezequiel Mahan MD 11/28/2011 Office visit Ezequiel Mahan MD 10/28/2011 Office visit Jada Pulliam TERADATA ARCHITECT 08/14/2011 Office visit Ezequiel Mahan MD 08/07/2011 Nurse visit Ezequiel Mahan MD 06/03/2011 Office visit Jada Pulliam TERADATA ARCHITECT 05/07/2011 Office visit Ezequiel Mahan MD 04/28/2011 [...]
--- OUTSIDE RECORDS SUMMARY | 2019-12-14 17:45 | XMS REPORT ---
Author Author Shandra Lucio Organization [facility] Address [address] [place] [phone] Care Team Providers Care Driver Medic Name Role Phone Chadd Lucio PCP Jada Pulliam PreferredProvider Allergies and Adverse Reactions Name Reaction Notes ciprofloxacin migraine codeine sulfate Plan of Treatment Planned Activity Comments Planned Date Planned Time Plan/Goal Urine Culture, [place] Count 03/04/2016 12:00 AM lumbar pain 12/17/2015 2:00 PM Lumbar Spine 2-3 Views - MOB 07/26/2018 12:00 AM consult for frequent UTI Mammography; [...] atorvastatin 40 mg oral tablet 02/24/2018 T KINDRA ONE TABLET BY MOUTH ONCE DAILY AT [...] INSERT ONE APPLICATORFUL VAGINALLY TWICE A WEEK Percocet 5-325 mg oral tablet 07/26/2018 08/25/2018 ta ke 1 tablet by oral route every 4-6 hours as needed for 30 days Name Start Date Expiration Date SIG Comments [...] route every 12 hours for 7 days Discontinued Name Start Date Discontinued Date [...] Reviewed 02/29/2016 12:00 AM Rocephin 1 gram [facility]#7542-2356-01 Reviewe d 03/27/2016 12:00 AM INJECT SPINE LUMBAR/SACRAL Reviewed 03/27/2016 12:00 AM URNLS DIP STICK/TABLET RGNT AUTO W/O KATHRIN ROSCOPY Reviewed 03/26/2016 12:00 AM Benadryl, Up to 50 Mg [facility]# 9314-0198-27 Reviewed 04/04/2016 12:00 AM IMMUNOTHERAPY ONE INJECTION Reviewed 10/29/2011 12:00 AM URINALYSIS AUTO W/O SCOPE Reviewed 10/28/2011 12:00 AM COMPLETE CBC W/AUTO DIFF WBC Reviewed 10/28/2011 12:00 AM COMPREHEN METABOLIC PANEL Reviewed 10/28/2011 12:00 AM URINE CULTURE/COLONY COUNT Reviewed 05/22/2016 12:00 AM ALLERGEN SPECIFIC IGE Reviewed 05/22/2016 12:00 AM Decadron, Per 1 Mg [facility]# [address]-43 Re viewed 05/22/2016 12:00 AM Depo-Medrol 40mg [...] Reviewed 01/08/2012 12:00 AM Depo-Medrol 40 mg [facility]#[id number] Reviewe d 09/08/2016 12:00 AM METABOLIC PANEL TOTAL CA Reviewed 09/08/2016 12:00 AM COMPLETE CBC W/AUTO DIFF WBC Reviewed 09/08/2016 12:00 AM RADIOLOGIC EXAM CHEST 2 VIEWS FRONTAL&LA TERAL Reviewed 04/13/2016 12:00 AM Depo-Medrol, Per 80 Mg [facility]#[address]-68 Reviewed 04/13/2016 12:00 AM Decadron, Per 1 Mg [facility]# [address]-15 Re viewed 04/13/2016 12:00 AM THER/PROPH/DIAG INJ [...] 01/10/2013 12:00 AM Decadron, Per 1 Mg [facility]# [address]-06 Re viewed 01/10/2013 12:00 AM Depo-Medrol, Per 80 Mg [facility]#9241-4589-91 Reviewed 06/30/2018 12:[address] LUMBAR SPINE [...] STICK/TABLET RGNT AUTO W/O KATHRIN ROSCOPY Returned 08/02/2018 12:00 AM REMOVE SUTURES SAME SURGEON Reviewed 07/05/2013 12:00 AM Prolia, 60 Mg Reviewed 07/20/2013 12:00 AM THER/PROPH/DIAG INJ SC/IM Reviewed 07/20/2013 12:00 AM Depo-Medrol, Per 80 Mg [facility]#1371-9956-06 Reviewed 07/20/2013 12:00 AM Decadron, Per 1 Mg [facility]# [address]-06 Re viewed 05/13/2010 12:00 AM COMPREHEN METABOLIC [...] Reviewed 10/24/2009 12:00 AM Kenalog 40 Mg [facility]#0682-4155-49 Review ed 12/26/2014 12:00 AM Prolia, 60 [...] CULT SET UP? YES 05/22/2016 3:30 PM X279-CqA D pteronyssinus <0. 10 U/oPP016-OnB D farinae <0.10 U/iXM219-CnA Cat Dander <0.10 G252-CpI Dog Dander <0.10 U/hTB357-ClX [place] Grass <0.10 U/mNG611-SwE Bluegrass,[place] <0.10 U/oDU717-OhD [place] Grass <0.10 U/pHO159-MzQ Cockroach,Greek <0.10 X396-EzF Penicilliumchrysogen <0.10 T953-YwA Cladosporiumherbarum <0.10 M771-WxS Aspergillusfumigatus <0.10 Y264-GnH Mucor racemosus <0.10 W966-FiB Alternariaalternata <0.10 G051-VbJ Stemphyliumherbarum <0.10 E441-UjC Maple/[place] <0.10 U/aCC006-FdQ [place], White <0.10 U/zBT210-PuR Elm, Greek <0.10 U/tEN222-VnD [place] <0.10 U/wIE649-AkC Merlin, White <0.10 U/gZF914-MfV Maple LeafSycamore <0.10 U/vHT094-BvU White [place] <0.10 U/pOK610-NdG Ragweed, Short <0.10 R875-LtJ [place] <0.10 W009- IgE Plantain,[place] Citizen <0.10 H938-RcF Thistle, [place] <0.10 Y307-TnO Pigweed, Common <0.10 N083-GqA Sheep [place] <0.10 D624-EbE Milk <0.10 N084-GlB Wheat <0.10 U/sPG254-FuP [place] <0.10 U/gMO036-SmY Peanut <0.10 U/iXV055-InK Soybean <0.10 U/dVV581-QvE Pork <0.10 U/eBY531-DuE Beef <0.10 U/qTPJ34-KrS Food Mix(Seafoods) Negative O987-RkQ Egg, Whole <0.10 U/lXZ579-IaM Chocolate/[employer] <0.10 07/21/2016 3:26 PM GLUCOSE 104.0 mg/dLSODIUM [...] Date Medicare Part B Medicare Of [place] [id number] N/A [email or web address] [facility] hia Greek Life Ins [id number] N/A Medicare Part A ZZZMedicare P A - Preventive [id number] N/A Medicare RHC Medicare RHC [id number] N/A Medicare Part A Medicare - Lab/Xray [id number] N/A BCBS Bcbs [facility] [id number] July 05, 2013 Medicare Part A Medicare Part A [id number] Friday, July 05, 2013 [employer] Insurance [place] Greek Retriement [id number] N/A Medicare Part B Medicare Of [place] [id number] Friday, July 05, 2013 History of Encounters Visit Date Visit Type Provider 08/24/2018 Office visit Chadd Lucio MD 08/02/2018 Procedures Chadd Lucio MD 07/19/2018 Hospital Chadd Lucio MD 07/16/2018 Office visit Jasmyn Dos Santos STEEL RIGGER 07/12/2018 [facility] Jessica Dhaliwal MD 07/05/2018 Office visit Matt Rice APR N 06/29/2018 Office visit Chadd Lucio MD 04/20/2018 Office visit Jada Pulliam STEEL RIGGER 03/19/2018 Procedures Hermilo Bouman DO 03/12/2018 Procedures Hermilo Bouman DO 02/26/2018 Procedures Hermilo Bouman DO 01/03/2018 Office visit Katharina Murdock APR N 10/08/2017 Office visit Jada Pulliam STEEL RIGGER 10/06/2017 Office visit Jada Pulliam STEEL RIGGER 10/07/2016 Hospital Jessica Dhaliwal MD 08/12/2016 Office visit Jada Pulliam STEEL RIGGER 08/05/2016 Office visit Jada Pulliam STEEL RIGGER 07/21/2016 Office visit Jada Pulliam STEEL RIGGER 07/10/2016 [facility] Sage Green MD 07/09/2016 Office visit Valorie MCCLURE 07/09/2016 [facility] Jessica Dhaliwal MD 05/22/2016 Nurse visit Jada Pulliam STEEL RIGGER 04/13/2016 Office visit Katharina Murdock APR N 04/04/2016 Nurse visit Jada Pullaim STEEL RIGGER 03/26/2016 Office visit Jada Pulliam STEEL RIGGER 02/29/2016 Office visit Jada Pulliam STEEL RIGGER 01/09/2016 Office visit Jada Pulliam STEEL RIGGER 11/14/2015 Office visit Jada Pulliam STEEL RIGGER 07/16/2015 Nurse visit Jada Pulliam STEEL RIGGER 11/30/2014 Office visit Sharon Villanueva 10/18/2014 Office visit Jada Pulliam STEEL RIGGER 08/17/2014 Office visit Jaylene Rebolledo MD 06/28/2014 Office visit Jada Pulliam STEEL RIGGER 06/01/2014 Office visit Sharon Villanueva 04/28/2014 Nurse visit Jada Walker STEEL RIGGER 07/20/2013 Office visit Jada Walker STEEL RIGGER 07/05/2013 Nurse visit Jada Walker STEEL RIGGER 01/10/2013 Office visit Jada Walker STEEL RIGGER 12/29/2012 Nurse visit Jada Pulliam STEEL RIGGER 06/16/2012 Office visit Jada Pulliam STEEL RIGGER 05/04/2012 Office visit Jada Pulliam STEEL RIGGER 03/10/2012 Office visit Jada Pulliam STEEL RIGGER 03/04/2012 Office visit Jada Pulliam STEEL RIGGER 01/13/2012 Office visit Ezequiel Mahan MD 01/08/2012 Nurse visit Mikki Carrasco MD 12/16/2011 Voided Ezequiel Mahan MD 11/28/2011 Office visit Ezequiel Mahan MD 10/28/2011 Office visit Jada Pulliam STEEL RIGGER 08/14/2011 Office visit Ezequiel Mahan MD 08/07/2011 Nurse visit Ezequiel Mahan MD 06/03/2011 Office visit Jada Pulliam STEEL RIGGER 05/07/2011 Office visit Ezequiel Mahan MD 04/28/2011 [...] visit Braydon Ramirez DO 08/15/2009 Laboratory Braydon Ramirze DO 07/02/2009 Office visit Braydon Ramirez DO
--- OUTSIDE RECORDS SUMMARY | 2019-12-14 17:46 | XMS REPORT ---
Author Author Shandra Lucio Organization [facility] Physicians oup Address [address] [place] [id number] Care Team Providers Care Personal Computer Specialist Name Role Phone Chadd Lucio PCP Jada Pulliam PreferredProvider Allergies and Adverse Reactions Name Reaction Notes ciprofloxacin migraine codeine sulfate Plan of Treatment Planned Activity Comments Planned Date Planned Time Plan/Goal Urine Culture, [place] Count 03/04/2016 12:00 AM lumbar pain 12/17/2015 [...] TABLET BY MOUTH ONCE DAILY AT BEDTIME gabapentin 300 mg oral capsule 04/20/2018 t kindra 1 capsule by oral route 3 times a day Leighann-D 12 Hour 60-120 mg oral tablet [...] prednisone 20 mg oral tablet 05/26/2011 06/03/2011 anedrson e 2 tablets by oral route daily [...] by oral route 2 times per day Problem List Description Status Onset Allergic [...] HC BMI BSA BMI Percentile O2 Sat(%) 07/16/2018 5:30:00 PM 150 mmHg 100 mmHg [...] 02/29/2016 12:00 AM Rocephin 1 gram [facility]#4422-4948-17 Reviewe d 03/27/2016 12:00 AM INJECT SPINE LUMBAR/SACRAL Reviewed 03/27/2016 12:00 AM URNLS DIP STICK/TABLET RGNT AUTO W/O KATHRIN ROSCOPY Reviewed 03/26/2016 12:00 AM Benadryl, Up to 50 Mg [facility]# 1241-9872-85 Reviewed 04/04/2016 12:00 AM IMMUNOTHERAPY ONE INJECTION Reviewed 10/29/2011 12:00 AM URINALYSIS AUTO W/O SCOPE Reviewed 10/28/2011 12:00 AM COMPLETE CBC W/AUTO DIFF WBC Reviewed 10/28/2011 12:00 AM COMPREHEN METABOLIC PANEL Reviewed 10/28/2011 12:00 AM URINE CULTURE/COLONY COUNT Reviewed 05/22/2016 12:00 AM ALLERGEN SPECIFIC IGE Reviewed 05/22/2016 12:00 AM Decadron, Per 1 Mg [facility]# [address]-28 Re viewed 05/22/2016 12:00 AM Depo-Medrol 40mg [...] 01/08/2012 12:00 AM Depo-Medrol 40 mg [facility]#[id number] Reviewe d 09/08/2016 12:00 AM METABOLIC PANEL TOTAL CA Reviewed 09/08/2016 12:00 AM COMPLETE CBC W/AUTO DIFF WBC Reviewed 09/08/2016 12:00 AM RADIOLOGIC EXAM CHEST 2 VIEWS FRONTAL&LA TERAL Reviewed 04/13/2016 12:00 AM Depo-Medrol, Per 80 Mg ND#[address]-12 Reviewed 04/13/2016 12:00 AM Decadron, Per 1 Mg [facility]# [address]-61 Re viewed 04/13/2016 12:00 AM THER/PROPH/DIAG INJ [...] 12:00 AM Decadron, Per 1 Mg [facility]# [address]-31 Re viewed 01/10/2013 12:00 AM Depo-Medrol, Per 80 Mg [facility]#4615-1128-21 Reviewed 06/30/2018 12:[address] LUMBAR SPINE [...] 12:00 AM Depo-Medrol, Per 80 Mg [facility]#9650-2711-40 Reviewed 07/20/2013 12:00 AM Decadron, Per 1 Mg [facility]# [address]-21 Re viewed 05/13/2010 12:00 AM COMPREHEN METABOLIC [...] Reviewed 10/24/2009 12:00 AM Kenalog 40 Mg [facility]#2401-5234-59 Review ed 12/26/2014 12:00 AM Prolia, 60 [...] CULT SET UP? YES 05/22/2016 3:30 PM M475-CoC D pteronyssinus <0. 10 U/vUR022-QrC D farinae <0.10 U/rKF455-FpC Cat Dander <0.10 G278-AjR Dog Dander <0.10 U/yCB087-KrE [place] Grass <0.10 U/dUP350-MtX Bluegrass,[facility] <0.10 U/rMH705-XrH [place] Grass <0.10 U/xFY588-VyE Cockroach,Guamanian <0.10 J976-IaL Penicilliumchrysogen <0.10 B494-NzP Cladosporiumherbarum <0.10 H749-NsH Aspergillusfumigatus <0.10 G739-XkN Mucor racemosus <0.10 K938-FxT Alternariaalternata <0.10 J674-InY Stemphyliumherbarum <0.10 W329-NgY Maple/[place] <0.10 U/gGX975-MqZ [place], White <0.10 U/rIL858-VqQ Elm, Guamanian <0.10 U/dDT889-PfV [place] <0.10 U/nVA464-TxU Merlin, White <0.10 U/wHT559-XlQ Maple LeafSycamore <0.10 U/xLN934-TbG White [place] <0.10 U/hCO699-UyP Ragweed, Short <0.10 E043-FxC [place] <0.10 W009- IgE Plantain,Welsh <0.10 T566-JsF Thistle, [place]an <0.10 T762-WvK Pigweed, Common <0.10 D501-TlZ Sheep [place] <0.10 I497-CjO Milk <0.10 Q318-DmU Wheat <0.10 U/nMO154-IjY [place] <0.10 U/lXH420-VjW Peanut <0.10 U/qPI322-YsB Soybean <0.10 U/pDK718-YuZ Pork <0.10 U/dSL396-VyK Beef <0.10 U/lACM68-NrG Food Mix(Seafoods) Negative J317-HxO Egg, Whole <0.10 U/iQG553-CbG Chocolate/[place] <0.10 07/21/2016 3:26 PM GLUCOSE 104.0 mg/dLSODIUM [...] 11:39AM Lumbar stenosis Aug 02 2018 11:04AM Payers Insurance Name Company Name Plan Name Plan Number Policy Number Sanjay cy Group Number Start Date Medicare Part B Medicare Of [place] [id number] N/A [employer] Insurance Company [facility] [id number] N/A Medicare Part A ZZZMedicare P A - Preventive [id number] N/A Medicare RHC Medicare RHC [id number] N/A Medicare Part A Medicare - Lab/Xray [id number] N/A BCBS Bcbs [facility] [id number] July 05, 2013 Medicare Part A Medicare Part A [id number] Friday, July 05, 2013 [facility] [employer] [place] Retriement [id number] N/A Medicare Part B Medicare Of [place] [id number] Friday, July 05, 2013 History of Encounters Visit Date Visit Type Provider 08/02/2018 Procedures Chadd Lucio MD 07/19/2018 [facility] Chadd Lucio MD 07/16/2018 Office visit Jasmyn Dos Santos ESL PROFESSOR 07/05/2018 Office visit Matt Rice APR N 06/29/2018 Office visit Chadd Lucio MD 04/20/2018 Office visit Jada Pulliam ESL PROFESSOR 03/19/2018 Procedures Hermilo Bouman DO 03/12/2018 Procedures Hermilo Bouman DO 02/26/2018 Procedures Hermilo Bouman DO 01/03/2018 Office visit Katharina Murdock APR N 10/08/2017 Office visit Jada Pulliam ESL PROFESSOR 10/06/2017 Office visit Jada Pulliam ESL PROFESSOR 10/07/2016 [facility] Jessica Dhaliwal MD 08/12/2016 Office visit Jada Pulliam ESL PROFESSOR 08/05/2016 Office visit Jada Pulliam ESL PROFESSOR 07/21/2016 Office visit Jada Pulliam ESL PROFESSOR 07/10/2016 [facility] Sage Green MD 07/09/2016 Office visit Valorie MCCLURE 07/09/2016 [facility] Jessica Dhaliwal MD 05/22/2016 Nurse visit Jada Pulliam ESL PROFESSOR 04/13/2016 Office visit Katharina Murdock APR N 04/04/2016 Nurse visit Jada Pulliam ESL PROFESSOR 03/26/2016 Office visit Jada Pulliam ESL PROFESSOR 02/29/2016 Office visit Jada Pulliam ESL PROFESSOR 01/09/2016 Office visit Jada Pulliam ESL PROFESSOR 11/14/2015 Office visit Jada Pulliam ESL PROFESSOR 07/16/2015 Nurse visit Jada Pulliam ESL PROFESSOR 11/30/2014 Office visit Sharon Villanueva 10/18/2014 Office visit Jada Pulliam ESL PROFESSOR 08/17/2014 Office visit Jaylene Rebolledo MD 06/28/2014 Office visit Jada Pulliam ESL PROFESSOR 06/01/2014 Office visit Sharon Villanueva 04/28/2014 Nurse visit Jada Pulliam ESL PROFESSOR 07/20/2013 Office visit Jada Pulliam ESL PROFESSOR 07/05/2013 Nurse visit Jada Pulliam ESL PROFESSOR 01/10/2013 Office visit Jada Pulliam ESL PROFESSOR 12/29/2012 Nurse visit Jada Pulliam ESL PROFESSOR 06/16/2012 Office visit Jada Pulliam ESL PROFESSOR 05/04/2012 Office visit Jada Pulliam ESL PROFESSOR 03/10/2012 Office visit Jada Pulliam ESL PROFESSOR 03/04/2012 Office visit Jada Pulliam ESL PROFESSOR 01/13/2012 Office visit Ezequiel Mahan MD 01/08/2012 Nurse visit Mikki Carrasco MD 12/16/2011 Voided Ezequiel Mahan MD 11/28/2011 Office visit Ezequiel Mahan MD 10/28/2011 Office visit Jada Pulliam ESL PROFESSOR 08/14/2011 Office visit Ezequiel Mahan MD 08/07/2011 Nurse visit Ezequiel Mahan MD 06/03/2011 Office visit Jada Pulliam ESL PROFESSOR 05/07/2011 Office visit Ezequiel Mahan MD 04/28/2011 [...]
--- OUTSIDE RECORDS SUMMARY | 2019-12-14 17:47 | XMS REPORT ---
Author Author Shandra Lucio Organization [facility] Physicians oup Address [address] [place] [id number] Care Team Providers Care Shed Boss Name Role Phone Chadd Lucio PCP Jada Pulliam PreferredProvider Allergies and Adverse Reactions Name Reaction Notes ciprofloxacin migraine codeine sulfate Plan of Treatment Planned Activity Comments Planned Date Planned Time Plan/Goal Urine Culture, [place] Count 03/04/2016 12:00 AM lumbar pain 12/17/2015 [...] Reviewed 02/29/2016 12:00 AM Rocephin 1 gram [facility]#3771-9424-58 Reviewe d 03/27/2016 12:00 AM INJECT SPINE LUMBAR/SACRAL Reviewed 03/27/2016 12:00 AM URNLS DIP STICK/TABLET RGNT AUTO W/O KATHRIN ROSCOPY Reviewed 03/26/2016 12:00 AM Benadryl, Up to 50 Mg [facility]# 7081-2289-52 Reviewed 04/04/2016 12:00 AM IMMUNOTHERAPY ONE INJECTION Reviewed 10/29/2011 12:00 AM URINALYSIS AUTO W/O SCOPE Reviewed 10/28/2011 12:00 AM COMPLETE CBC W/AUTO DIFF WBC Reviewed 10/28/2011 12:00 AM COMPREHEN METABOLIC PANEL Reviewed 10/28/2011 12:00 AM URINE CULTURE/COLONY COUNT Reviewed 05/22/2016 12:00 AM ALLERGEN SPECIFIC IGE Reviewed 05/22/2016 12:00 AM Decadron, Per 1 Mg [facility]# [address]-90 Re viewed 05/22/2016 12:00 AM Depo-Medrol 40mg [...] Reviewed 01/08/2012 12:00 AM Depo-Medrol 40 mg [facility]#3697138844 Reviewe d 09/08/2016 12:00 AM METABOLIC PANEL TOTAL CA Reviewed 09/08/2016 12:00 AM COMPLETE CBC W/AUTO DIFF WBC Reviewed 09/08/2016 12:00 AM RADIOLOGIC EXAM CHEST 2 VIEWS FRONTAL&LA TERAL Reviewed 04/13/2016 12:00 AM Depo-Medrol, Per 80 Mg [place]#[address]-77 Reviewed 04/13/2016 12:00 AM Decadron, Per 1 Mg [facility]# [address]-40 Re viewed 04/13/2016 12:00 AM THER/PROPH/DIAG INJ [...] 01/10/2013 12:00 AM Decadron, Per 1 Mg [facility]# [address]-73 Re viewed 01/10/2013 12:00 AM Depo-Medrol, Per 80 Mg [facility]#9693-1670-97 Reviewed 06/30/2018 12:[address] LUMBAR SPINE [...] STICK/TABLET RGNT AUTO W/O KATHRIN ROSCOPY Returned 07/05/2013 12:00 AM Prolia, 60 Mg Reviewed 07/20/2013 12:00 AM THER/PROPH/DIAG INJ SC/IM Reviewed 07/20/2013 12:00 AM Depo-Medrol, Per 80 Mg [facility]#3301-3478-34 Reviewed 07/20/2013 12:00 AM Decadron, Per 1 Mg [facility]# [address]-80 Re viewed 05/13/2010 12:00 AM COMPREHEN METABOLIC [...] Reviewed 10/24/2009 12:00 AM Kenalog 40 Mg [facility]#5864-3915-90 Review ed 12/26/2014 12:00 AM Prolia, 60 [...] CULT SET UP? YES 05/22/2016 3:30 PM Y033-QiR D pteronyssinus <0. 10 U/gFO374-NgT D farinae <0.10 U/hVH254-MrH Cat Dander <0.10 E951-NeP Dog Dander <0.10 U/zNS036-AyX [place] Grass <0.10 U/tDL316-RzM Bluegrass,[facility] <0.10 U/bYW193-NgY [place] Grass <0.10 U/lNK335-WiF Cockroach,Central African <0.10 U590-FfP Penicilliumchrysogen <0.10 Y557-UwC Cladosporiumherbarum <0.10 N080-TeW Aspergillusfumigatus <0.10 I027-NqE Mucor racemosus <0.10 R496-WdT Alternariaalternata <0.10 A649-CmR Stemphyliumherbarum <0.10 N162-WwY Maple/Rich <0.10 U/lHY436-DwJ [place], White <0.10 U/wBF075-FjJ Elm, Central African <0.10 U/sLI765-RmH [place] <0.10 U/aKS595-IpH Merlin, White <0.10 U/iBY988-TlX Maple LeafSycamore <0.10 U/dCR137-NxV [place] <0.10 U/bTW150-KpF Ragweed, Short <0.10 O699-DjL [place] <0.10 W009- IgE Plantain,Polish <0.10 X084-QoA Thistle, Grenadian <0.10 Z327-DlP Pigweed, Common <0.10 T189-GiY Sheep [place] <0.10 P553-QxX Milk <0.10 H749-BrD Wheat <0.10 U/hUN481-LfG [place] <0.10 U/iQJ919-UfH Peanut <0.10 U/dTQ478-ZtK Soybean <0.10 U/kZU421-ToV Pork <0.10 U/cMF067-TcZ Beef <0.10 U/aTDN41-UnA Food Mix(Seafoods) Negative F811-WkL Egg, Whole <0.10 U/aYX387-JnX Chocolate/[place] <0.10 07/21/2016 3:26 PM GLUCOSE 104.0 mg/dLSODIUM [...] Date Medicare Part B Medicare [place] [id number] N/A [place] [employer] Company [facility] [id number] N/A Medicare Part A ZZZMedicare P A - Preventive [id number] N/A Medicare RHC Medicare RHC [id number] N/A Medicare Part A Medicare - Lab/Xray [id number] N/A BCBS Bcbs [facility] [id number] July 05, 2013 Medicare Part A Medicare Part A [id number] Friday, July 05, 2013 [facility] Insurance Co [place] Retriement [id number] N/A Medicare Part B Medicare Of [place] [id number] Friday, July 05, 2013 History of Encounters Visit Date Visit Type Provider 08/02/2018 Procedures Chadd Lucio MD 07/19/2018 [facility] Chadd Lucio MD 07/16/2018 Office visit Jasmyn Dos Santos PHARMACY STUDENT 07/05/2018 Office visit Matt Rice APR N 06/29/2018 Office visit Chadd Lucio MD 04/20/2018 Office visit Jada Pulliam PHARMACY STUDENT 03/19/2018 Procedures Hermilo Bouman DO 03/12/2018 Procedures Hermilo Bouman DO 02/26/2018 Procedures Hermilo Bouman DO 01/03/2018 Office visit Katharina Murdock APR N 10/08/2017 Office visit Jada Pulliam PHARMACY STUDENT 10/06/2017 Office visit Jada Pulliam PHARMACY STUDENT 10/07/2016 [facility] Jessica Dhaliwal MD 08/12/2016 Office visit Jdaa Pulliam PHARMACY STUDENT 08/05/2016 Office visit Jada Pulliam PHARMACY STUDENT 07/21/2016 Office visit Jada Walker PHARMACY STUDENT 07/10/2016 [facility] Sage Green MD 07/09/2016 Office visit Valorie MCCLURE 07/09/2016 [facility] Jessica Dhaliwal MD 05/22/2016 Nurse visit Jada Pulliam PHARMACY STUDENT 04/13/2016 Office visit Katharina Murdock APR N 04/04/2016 Nurse visit Jada Pulliam PHARMACY STUDENT 03/26/2016 Office visit Jada Walker PHARMACY STUDENT 02/29/2016 Office visit Jada Pulliam PHARMACY STUDENT 01/09/2016 Office visit Jada Pulliam PHARMACY STUDENT 11/14/2015 Office visit Jada Pulliam PHARMACY STUDENT 07/16/2015 Nurse visit Jada Walker PHARMACY STUDENT 11/30/2014 Office visit Sharon Villanueva 10/18/2014 Office visit Jada Pulliam PHARMACY STUDENT 08/17/2014 Office visit Jaylene Rebolledo MD 06/28/2014 Office visit Jada Pulliam PHARMACY STUDENT 06/01/2014 Office visit Sharon Villanueva 04/28/2014 Nurse visit Jada Pulliam PHARMACY STUDENT 07/20/2013 Office visit Jada Pulliam PHARMACY STUDENT 07/05/2013 Nurse visit Jada Pulliam PHARMACY STUDENT 01/10/2013 Office visit Jada Pulliam PHARMACY STUDENT 12/29/2012 Nurse visit Jada Pulliam PHARMACY STUDENT 06/16/2012 Office visit Jada Pulliam PHARMACY STUDENT 05/04/2012 Office visit Jada Pulliam PHARMACY STUDENT 03/10/2012 Office visit Jada Pulliam PHARMACY STUDENT 03/04/2012 Office visit Jada Pulliam PHARMACY STUDENT 01/13/2012 Office visit Ezequiel Mahan MD 01/08/2012 Nurse visit Mikki Carrasco MD 12/16/2011 Voided Ezequiel Mahan MD 11/28/2011 Office visit Ezequiel Mahan MD 10/28/2011 Office visit Jada Heraclio PHARMACY STUDENT 08/14/2011 Office visit Ezequiel Mahan MD 08/07/2011 Nurse visit Ezequiel Mahan MD 06/03/2011 Office visit Jada Pulliam PHARMACY STUDENT 05/07/2011 Office visit Ezequiel Mahan MD 04/28/2011 [...]
--- OUTSIDE RECORDS SUMMARY | 2019-12-14 17:48 | XMS REPORT ---
Author Author Shandra Lucio Organization [facility] Physicians oup Address [address] [place] [id number] Care Team Providers Care Dial Buffer Name Role Phone Chadd Lucio PCP Jada Pulliam PreferredProvider Allergies and Adverse Reactions Name Reaction Notes ciprofloxacin migraine codeine sulfate Plan of Treatment Planned Activity Comments Planned Date Planned Time Plan/Goal Urine Culture, [place] Count 03/04/2016 12:00 AM lumbar pain 12/17/2015 [...] Reviewed 02/29/2016 12:00 AM Rocephin [address] [facility]#8523-4554-98 Reviewe d 03/27/2016 12:00 AM INJECT SPINE LUMBAR/SACRAL Reviewed 03/27/2016 12:00 AM URNLS DIP STICK/TABLET RGNT AUTO W/O KATHRIN ROSCOPY Reviewed 03/26/2016 12:00 AM Benadryl, Up to [address] [facility]# 9092-6993-77 Reviewed 04/04/2016 12:00 AM IMMUNOTHERAPY ONE INJECTION Reviewed 10/29/2011 12:00 AM URINALYSIS AUTO W/O SCOPE Reviewed 10/28/2011 12:00 AM COMPLETE CBC W/AUTO DIFF WBC Reviewed 10/28/2011 12:00 AM COMPREHEN METABOLIC PANEL Reviewed 10/28/2011 12:00 AM URINE CULTURE/COLONY COUNT Reviewed 05/22/2016 12:00 AM ALLERGEN SPECIFIC IGE Reviewed 05/22/2016 12:00 AM Decadron, Per 1 Mg ND# [address]-05 Re viewed 05/22/2016 12:00 AM Depo-Medrol 40mg [...] Reviewed 01/08/2012 12:00 AM Depo-Medrol [address] [facility]#3052606413 Reviewe d 09/08/2016 12:00 AM METABOLIC PANEL TOTAL CA Reviewed 09/08/2016 12:00 AM COMPLETE CBC W/AUTO DIFF WBC Reviewed 09/08/2016 12:00 AM RADIOLOGIC EXAM CHEST 2 VIEWS FRONTAL&LA TERAL Reviewed 04/13/2016 12:00 AM Depo-Medrol, Per 80 Mg ND#[address]-92 Reviewed 04/13/2016 12:00 AM Decadron, Per [address] [facility]# [address]-89 Re viewed 04/13/2016 12:00 AM THER/PROPH/DIAG INJ [...] 01/10/2013 12:00 AM Decadron, Per [address] [facility]# [address]-14 Re viewed 01/10/2013 12:00 AM Depo-Medrol, Per [address] [facility]#8036-5770-61 Reviewed 06/30/2018 12:[address] LUMBAR SPINE [...] 07/20/2013 12:00 AM Depo-Medrol, Per [address] [facility]#7972-8484-89 Reviewed 07/20/2013 12:00 AM Decadron, Per [address] [facility]# [address]-12 Re viewed 05/13/2010 12:00 AM COMPREHEN METABOLIC [...] 10/24/2009 12:00 AM Kenalog 40 Mg [facility]#1244-8970-64 Review ed 12/26/2014 12:00 AM Prolia, 60 [...] 4.91 HGB 14.80 g/dLHCT 45.20 %MCV 92.0 [facility] 30.10 pgHC 32.70 g/dLRDW SD 45 RDW CV 13.40 [...] CULT SET UP? YES 05/22/2016 3:30 PM P335-FvX D pteronyssinus <0. 10 U/cHU217-SzZ D farinae <0.10 U/sVP512-MjW Cat Dander <0.10 Y072-NjA Dog Dander <0.10 U/yJA447-PtZ [place] Grass <0.10 U/sKK763-XiP Bluegrass,[place] <0.10 U/hRR999-HqY [place] Grass <0.10 U/bJP800-AhO Cockroach,Serbian <0.10 L543-SqW Penicilliumchrysogen <0.10 Y161-TiM Cladosporiumherbarum <0.10 W173-RcQ Aspergillusfumigatus <0.10 W381-ErB Mucor racemosus <0.10 Z064-EpA Alternariaalternata <0.10 K245-CyE Stemphyliumherbarum <0.10 D871-UdU Maple/[place]erry <0.10 U/tFK421-CqU [place], White <0.10 U/lHF722-DjC Elm, Serbian <0.10 U/rTN571-SrK [place] <0.10 U/vSO505-XbV Merlin, White <0.10 U/jBG511-OpG Maple LeafSycamore <0.10 U/iXG927-HuD [place] <0.10 U/wAO211-OuA Ragweed, Short <0.10 U283-SvP [place] <0.10 W009- IgE Plantain,Swedish <0.10 S266-FeA Thistle, Sierra Leonean <0.10 J277-AoD Pigweed, Common <0.10 E140-PhC Sheep [place] <0.10 O309-IwL Milk <0.10 C970-FtQ Wheat <0.10 U/qJF455-KuG [place] <0.10 U/gAN379-NbS Peanut <0.10 U/rFM777-BsT Soybean <0.10 U/aQX461-UiY Pork <0.10 U/uKP751-HsV Beef <0.10 U/hYKB84-IrH Food Mix(Seafoods) Negative Z051-UkO Egg, Whole <0.10 U/wHD668-IhX Chocolate/[place] <0.10 07/21/2016 3:26 PM GLUCOSE 104.0 mg/dLSODIUM [...] Not Entered 10/05/2019 10/05/2019 999 Tdap 07/16/2015 [facility] BOOSTRIX [id number] Intramuscula r Right Deltoid [...] 6:03PM Hives Apr 13 2016 1:41PM Hives Aug 18 2016 3:04PM Hives May 22 2016 4:40PM [...] Lumbar spinal stenosis Jul 26 2018 11:39AM Payers Insurance Name Company Name Plan Name Plan Number Policy Number Sanjay cy Group Number Start Date Medicare Part B Medicare Of [place] [id number] N/A [address] [employer] Company [facility] [id number] N/A Medicare Part A ZZZMedicare P A - Preventive [id number] N/A Medicare RHC Medicare RHC [id number] N/A Medicare Part A Medicare - Lab/Xray [id number] N/A BCBS Bcbs [facility] [id number] July 05, 2013 Medicare Part A Medicare Part A [id number] Friday, July 05, 2013 [facility] Serbian Retriement [id number] N/A Medicare Part B Medicare Of [place] [id number] Friday, July 05, 2013 History of Encounters Visit Date Visit Type Provider 07/19/2018 Hospital Chadd Lucio MD 07/16/2018 Office visit Jasmyn Dos Santos LAB ENGINEER 07/05/2018 Office visit Matt Rice APR N 06/29/2018 Office visit Chadd Lucio MD 04/20/2018 Office visit Jada Pulliam LAB ENGINEER 03/19/2018 Procedures Hermilo Bouman DO 03/12/2018 Procedures Hermilo Bouman DO 02/26/2018 Procedures Hermilo Bouman DO 01/03/2018 Office visit Katharina Murdock APR N 10/08/2017 Office visit Jada Pulliam LAB ENGINEER 10/06/2017 Office visit Jada Pulliam LAB ENGINEER 10/07/2016 [facility] Jessica Dhaliwal MD 08/12/2016 Office visit Jada Pulliam LAB ENGINEER 08/05/2016 Office visit Jada Pulliam LAB ENGINEER 07/21/2016 Office visit Jada Pulliam LAB ENGINEER 07/10/2016 [facility] Sage Green MD 07/09/2016 Office visit Valorie MCCLURE 07/09/2016 [facility] Jessica Dhaliwal MD 05/22/2016 Nurse visit Jada Pulliam LAB ENGINEER 04/13/2016 Office visit Katharina Murdock APR N 04/04/2016 Nurse visit Jada Pulliam LAB ENGINEER 03/26/2016 Office visit Jada Pulliam LAB ENGINEER 02/29/2016 Office visit Jada Pulliam LAB ENGINEER 01/09/2016 Office visit Jada Pulliam LAB ENGINEER 11/14/2015 Office visit Jada Pulliam LAB ENGINEER 07/16/2015 Nurse visit Jada Pulliam LAB ENGINEER 11/30/2014 Office visit Sharon Villanueva 10/18/2014 Office visit Jada Pulliam LAB ENGINEER 08/17/2014 Office visit Jaylene Rebolledo MD 06/28/2014 Office visit Jaad Pulliam LAB ENGINEER 06/01/2014 Office visit Sharon Villanueva 04/28/2014 Nurse visit Jada Pulliam LAB ENGINEER 07/20/2013 Office visit Jada Pulliam LAB ENGINEER 07/05/2013 Nurse visit Jada Pulliam LAB ENGINEER 01/10/2013 Office visit Jada Pulliam LAB ENGINEER 12/29/2012 Nurse visit Jada Pulliam LAB ENGINEER 06/16/2012 Office visit Jada Pulliam LAB ENGINEER 05/04/2012 Office visit Jada Pulliam LAB ENGINEER 03/10/2012 Office visit Jada Pulliam LAB ENGINEER 03/04/2012 Office visit Jada Pulliam LAB ENGINEER 01/13/2012 Office visit Ezequiel Mahan MD 01/08/2012 Nurse visit Mikki Carrasco MD 12/16/2011 Voided Ezequiel Mahan MD 11/28/2011 Office visit Ezequiel Mahan MD 10/28/2011 Office visit Jada Heraclio LAB ENGINEER 08/14/2011 Office visit Ezequiel Mahan MD 08/07/2011 Nurse visit Ezequiel Mahan MD 06/03/2011 Office visit Jada Pulliam LAB ENGINEER 05/07/2011 Office visit Ezequiel Mahan MD 04/28/2011 [...]
--- OUTSIDE RECORDS SUMMARY | 2019-12-14 17:49 | XMS REPORT ---
Author Author Shandra Lucio Organization [facility] Address [address] [place] [id number] Care Team Providers Care Clinical Data Specialist Name Role Phone Chadd Lucio PCP Jada Pulliam PreferredProvider Allergies and Adverse Reactions Name Reaction Notes ciprofloxacin migraine codeine sulfate Plan of Treatment Planned Activity Comments Planned Date Planned Time Plan/Goal Urine Culture, [place] Count 03/04/2016 12:00 AM lumbar pain 12/17/2015 [...] Reviewed 02/29/2016 12:00 AM Rocephin 1 gram [facility]#3057-3496-27 Reviewe d 03/27/2016 12:00 AM INJECT SPINE LUMBAR/SACRAL Reviewed 03/27/2016 12:00 AM URNLS DIP STICK/TABLET RGNT AUTO W/O KATHRIN ROSCOPY Reviewed 03/26/2016 12:00 AM Benadryl, Up to 50 Mg [facility]# 4371-3619-21 Reviewed 04/04/2016 12:00 AM IMMUNOTHERAPY ONE INJECTION Reviewed 10/29/2011 12:00 AM URINALYSIS AUTO W/O SCOPE Reviewed 10/28/2011 12:00 AM COMPLETE CBC W/AUTO DIFF WBC Reviewed 10/28/2011 12:00 AM COMPREHEN METABOLIC PANEL Reviewed 10/28/2011 12:00 AM URINE CULTURE/COLONY COUNT Reviewed 05/22/2016 12:00 AM ALLERGEN SPECIFIC IGE Reviewed 05/22/2016 12:00 AM Decadron, Per 1 Mg [facility]# [address]-81 Re viewed 05/22/2016 12:00 AM Depo-Medrol 40mg [...] Reviewed 01/08/2012 12:00 AM Depo-Medrol 40 mg [facility]#[id number] Reviewe d 09/08/2016 12:00 AM METABOLIC PANEL TOTAL CA Reviewed 09/08/2016 12:00 AM COMPLETE CBC W/AUTO DIFF WBC Reviewed 09/08/2016 12:00 AM RADIOLOGIC EXAM CHEST 2 VIEWS FRONTAL&LA TERAL Reviewed 04/13/2016 12:00 AM Depo-Medrol, Per 80 Mg [facility]#[address]-08 Reviewed 04/13/2016 12:00 AM Decadron, Per 1 Mg [facility]# [address]-41 Re viewed 04/13/2016 12:00 AM THER/PROPH/DIAG INJ [...] 01/10/2013 12:00 AM Decadron, Per 1 Mg [facility]# [address]-03 Re viewed 01/10/2013 12:00 AM Depo-Medrol, Per 80 Mg [facility]#0324-6509-63 Reviewed 06/30/2018 12:[address] LUMBAR SPINE [...] 07/20/2013 12:00 AM Depo-Medrol, Per 80 Mg [facility]#9608-7248-65 Reviewed 07/20/2013 12:00 AM Decadron, Per 1 Mg [facility]# [address]-80 Re viewed 05/13/2010 12:00 AM COMPREHEN METABOLIC [...] Reviewed 10/24/2009 12:00 AM Kenalog 40 Mg [facility]#5420-5601-78 Review ed 12/26/2014 12:00 AM Prolia, 60 [...] CULT SET UP? YES 05/22/2016 3:30 PM H391-XeR D pteronyssinus <0. 10 U/mPI237-YgA D farinae <0.10 U/sZQ220-ZoC Cat Dander <0.10 F251-MhT Dog Dander <0.10 U/oLV069-XiJ [place] Grass <0.10 U/aUC792-ClN Bluegrass,[place] <0.10 U/rAZ438-XlQ [place] Grass <0.10 U/bOF828-VbC Cockroach,Danish <0.10 L035-YxA Penicilliumchrysogen <0.10 A497-LnJ Cladosporiumherbarum <0.10 Y865-HcS Aspergillusfumigatus <0.10 S243-RmD Mucor racemosus <0.10 H265-WeP Alternariaalternata <0.10 S573-HnS Stemphyliumherbarum <0.10 B582-XrK Maple/[place] <0.10 U/gKA879-UoZ [place], White <0.10 U/hOY056-DkD Elm, [place] <0.10 U/gME556-YyB [place] <0.10 U/zZU807-AyR Merlin, White <0.10 U/dRA691-ApC Maple LeafSycamore <0.10 U/kFL518-YdA [place] <0.10 U/kGC067-CyS Ragweed, Short <0.10 B129-XyK [place] <0.10 W009- IgE Plantain,Icelandic <0.10 H554-ZqE Thistle, [place] <0.10 B841-BbG Pigweed, Common <0.10 T354-QbP Sheep [place] <0.10 V339-BqM Milk <0.10 Y525-QpV Wheat <0.10 U/mDG293-FsN [place] <0.10 U/lZT604-JfE Peanut <0.10 U/dKD712-ExS Soybean <0.10 U/pZN271-FiX Pork <0.10 U/yEP510-EgR Beef <0.10 U/jXKA66-IjP Food Mix(Seafoods) Negative H915-LeS Egg, Whole <0.10 U/hRV246-QzZ Chocolate/[place] <0.10 07/21/2016 3:26 PM GLUCOSE 104.0 mg/dLSODIUM [...] Not Entered 10/05/2019 10/05/2019 999 Tdap 07/16/2015 [employer]Agree SKB BOOSTRIX H9P57 Intramuscula r Right Deltoid [...] 3:40PM Urinary Frequency Jul 16 2018 5:37PM Payers Insurance Name Company Name Plan Name Plan Number Policy Number Sanjay cy Group Number Start Date Medicare Part B Medicare Of [place] [id number] N/A [employer] [facility] [employer] Ins [id number] N/A Medicare Part A ZZZMedicare P A - Preventive [id number] N/A Medicare RH Medicare [facility] [id number] N/A Medicare Part A Medicare - Lab/Xray [id number] N/A [facility] [id number] July 05, 2013 Medicare Part A Medicare Part A [id number] Friday, July 05, 2013 [employer] [facility] Danish Retriement [id number] N/A Medicare Part B Medicare Of [place] [id number] Friday, July 05, 2013 History of Encounters Visit Date Visit Type Provider 07/19/2018 [facility] Chadd Lucio MD 07/16/2018 Office visit Jasmyn Dos Santos OCCUPATIONAL HEALTH RN 07/05/2018 Office visit Matt Rice APR N 06/29/2018 Office visit Chadd Lucio MD 04/20/2018 Office visit Jada Pulliam OCCUPATIONAL HEALTH RN 03/19/2018 Procedures Hermilo Bouman DO 03/12/2018 Procedures Hermilo Bouman DO 02/26/2018 Procedures Hermilo Bouman DO 01/03/2018 Office visit Katharina Murdock APR N 10/08/2017 Office visit Jada Pulliam OCCUPATIONAL HEALTH RN 10/06/2017 Office visit Jada Heraclio OCCUPATIONAL HEALTH RN 10/07/2016 [facility] Jessica Dhaliwal MD 08/12/2016 Office visit Jada Walker OCCUPATIONAL HEALTH RN 08/05/2016 Office visit Jada Walker OCCUPATIONAL HEALTH RN 07/21/2016 Office visit Jada Walker OCCUPATIONAL HEALTH RN 07/10/2016 [facility] Sage Green MD 07/09/2016 Office visit Valorie MCCLURE 07/09/2016 [facility] Jessica Dhaliwal MD 05/22/2016 Nurse visit Jada Pulliam OCCUPATIONAL HEALTH RN 04/13/2016 Office visit Katharina Murdock APR N 04/04/2016 Nurse visit Jada Walker OCCUPATIONAL HEALTH RN 03/26/2016 Office visit Jada Walker OCCUPATIONAL HEALTH RN 02/29/2016 Office visit Jada Walker OCCUPATIONAL HEALTH RN 01/09/2016 Office visit Jada Walker OCCUPATIONAL HEALTH RN 11/14/2015 Office visit Jada Walker OCCUPATIONAL HEALTH RN 07/16/2015 Nurse visit Jada Walker OCCUPATIONAL HEALTH RN 11/30/2014 Office visit Sharon Villanueva 10/18/2014 Office visit Jada Walker OCCUPATIONAL HEALTH RN 08/17/2014 Office visit Jaylene Rebolledo MD 06/28/2014 Office visit Jada Walker OCCUPATIONAL HEALTH RN 06/01/2014 Office visit Sharon Villanueva 04/28/2014 Nurse visit Jada Walker OCCUPATIONAL HEALTH RN 07/20/2013 Office visit Jada Walker OCCUPATIONAL HEALTH RN 07/05/2013 Nurse visit Jada Walker OCCUPATIONAL HEALTH RN 01/10/2013 Office visit Jada Walker OCCUPATIONAL HEALTH RN 12/29/2012 Nurse visit Jada Walker OCCUPATIONAL HEALTH RN 06/16/2012 Office visit Jada Walker OCCUPATIONAL HEALTH RN 05/04/2012 Office visit Jada Walker OCCUPATIONAL HEALTH RN 03/10/2012 Office visit Jada Pulliam OCCUPATIONAL HEALTH RN 03/04/2012 Office visit Jada Heraclio OCCUPATIONAL HEALTH RN 01/13/2012 Office visit Ezequiel Mahan MD 01/08/2012 Nurse visit Mikki Carrasco MD 12/16/2011 Voided Ezequiel Mahan MD 11/28/2011 Office visit Ezequiel Mahan MD 10/28/2011 Office visit Jada Pulliam OCCUPATIONAL HEALTH RN 08/14/2011 Office visit Ezequiel Mahan MD 08/07/2011 Nurse visit Ezequiel Mahan MD 06/03/2011 Office visit Jada Pulliam OCCUPATIONAL HEALTH RN 05/07/2011 Office visit Ezequiel Mahan MD 04/28/2011 [...]
--- OUTSIDE RECORDS SUMMARY | 2019-12-14 17:50 | XMS REPORT ---
Author Author Shandra Lucio Organization [facility] Address [address] [place] [id number] Care Team Providers Care Manager Of Exhibitions And Collections Name Role Phone Chadd Lucio PCP Jada Pulliam PreferredProvider Allergies and Adverse Reactions Name Reaction Notes ciprofloxacin migraine codeine sulfate Plan of Treatment Planned Activity Comments Planned Date Planned Time Plan/Goal Urine Culture, [place] Count 03/04/2016 12:00 AM lumbar pain 12/17/2015 [...] AM Rocephin 1 gram [facility]#2955-8389-56 Reviewe d 03/27/2016 12:00 AM INJECT SPINE LUMBAR/SACRAL Reviewed 03/27/2016 12:00 AM URNLS DIP STICK/TABLET RGNT AUTO W/O KATHRIN ROSCOPY Reviewed 03/26/2016 12:00 AM Benadryl, Up to 50 Mg [facility]# 0147-4605-41 Reviewed 04/04/2016 12:00 AM IMMUNOTHERAPY ONE INJECTION Reviewed 10/29/2011 12:00 AM URINALYSIS AUTO W/O SCOPE Reviewed 10/28/2011 12:00 AM COMPLETE CBC W/AUTO DIFF WBC Reviewed 10/28/2011 12:00 AM COMPREHEN METABOLIC PANEL Reviewed 10/28/2011 12:00 AM URINE CULTURE/COLONY COUNT Reviewed 05/22/2016 12:00 AM ALLERGEN SPECIFIC IGE Reviewed 05/22/2016 12:00 AM Decadron, Per 1 Mg [facility]# [address]-84 Re viewed 05/22/2016 12:00 AM Depo-Medrol 40mg [...] AM Depo-Medrol 40 mg [facility]#[id number] Reviewe d 09/08/2016 12:00 AM METABOLIC PANEL TOTAL CA Reviewed 09/08/2016 12:00 AM COMPLETE CBC W/AUTO DIFF WBC Reviewed 09/08/2016 12:00 AM RADIOLOGIC EXAM CHEST 2 VIEWS FRONTAL&LA TERAL Reviewed 04/13/2016 12:00 AM Depo-Medrol, Per 80 Mg [facility]#[address]-44 Reviewed 04/13/2016 12:00 AM Decadron, Per 1 Mg [facility]# [address]-18 Re viewed 04/13/2016 12:00 AM THER/PROPH/DIAG INJ [...] Decadron, Per 1 Mg [facility]# [address]-73 Re viewed 01/10/2013 12:00 AM Depo-Medrol, Per 80 Mg [facility]#4290-1811-80 Reviewed 06/30/2018 12:[address] LUMBAR SPINE [...] Depo-Medrol, Per 80 Mg [facility]#5361-3950-28 Reviewed 07/20/2013 12:00 AM Decadron, Per 1 Mg [facility]# [address]-21 Re viewed 05/13/2010 12:00 AM COMPREHEN METABOLIC [...] 12:00 AM Kenalog 40 Mg [facility]#3107-0204-54 Review ed 12/26/2014 12:00 AM Prolia, 60 [...] CULT SET UP? YES 05/22/2016 3:30 PM C297-StH D pteronyssinus <0. 10 U/nDB586-FzZ D farinae <0.10 U/pWD556-HmN Cat Dander <0.10 O582-FpG Dog Dander <0.10 U/uGP853-MhE [place] Grass <0.10 U/dPK828-KwK Bluegrass,[place] <0.10 U/jOY148-YhB [place] Grass <0.10 U/yQL330-LvN Cockroach,Citizen Of [place] <0.10 Z215-VvP Penicilliumchrysogen <0.10 X170-ByP Cladosporiumherbarum <0.10 Q591-QhZ Aspergillusfumigatus <0.10 H154-VjC Mucor racemosus <0.10 N873-FxC Alternariaalternata <0.10 Q764-LqR Stemphyliumherbarum <0.10 Y146-NaD Maple/[place] <0.10 U/zLV952-LdV [place], White <0.10 U/qKR874-BqB Elm, Citizen Of [place] <0.10 U/gEN417-DlS [place] <0.10 U/bEK611-CtH Merlin, White <0.10 U/qGZ184-WaP Maple LeafSycamore <0.10 U/uGB971-MmO White [place] <0.10 U/tEY268-SpV Ragweed, Short <0.10 B949-DlL [place] <0.10 W009- IgE Plantain,[place]i <0.10 A631-ZaX Thistle, [place]yan <0.10 R777-YzN Pigweed, Common <0.10 K595-QlG Sheep [place] <0.10 C988-BwJ Milk <0.10 L306-UoQ Wheat <0.10 U/eDY219-JgR [place] <0.10 U/vQX464-SoN Peanut <0.10 U/jON842-VdY Soybean <0.10 U/wAU473-GyS Pork <0.10 U/cRG153-LaP Beef <0.10 U/gPSF74-CjH Food Mix(Seafoods) Negative G183-CrK Egg, Whole <0.10 U/vTU561-CyP Chocolate/[place] <0.10 07/21/2016 3:26 PM GLUCOSE 104.0 mg/dLSODIUM [...] Not Entered 10/05/2019 10/05/2019 999 Tdap 07/16/2015 [employer] SKB BOOSTRIX H9P57 Intramuscula r Right Deltoid [...] Date Medicare Part B Medicare Of [place] [id number] N/A [facility] [employer] Ins [id number] N/A Medicare Part A ZZZMedicare P A - Preventive [id number] N/A Medicare RH Medicare [facility] [id number] N/A Medicare Part A Medicare - Lab/Xray [id number] N/A [facility] [id number] July 05, 2013 Medicare Part A Medicare Part A [id number] Friday, July 05, 2013 [facility] [employer] [facility] Citizen Of [place] Retriement [id number] N/A Medicare Part B Medicare Of [place] [id number] Friday, July 05, 2013 History of Encounters Visit Date Visit Type Provider 07/19/2018 [facility] Chadd Lucio MD 07/16/2018 Office visit Jasmyn Dos Santos STEREOPTICIAN 07/05/2018 Office visit Matt Rice APR N 06/29/2018 Office visit Chadd Lucio MD 04/20/2018 Office visit Jada Pulliam STEREOPTICIAN 03/19/2018 Procedures Hermilo Bouman DO 03/12/2018 Procedures Hermilo Bouman DO 02/26/2018 Procedures Hermilo Bouman DO 01/03/2018 Office visit Katharina Murdock APR N 10/08/2017 Office visit Jada Pulliam STEREOPTICIAN 10/06/2017 Office visit Jada Heraclio STEREOPTICIAN 10/07/2016 [facility] Jessica Dhaliwal MD 08/12/2016 Office visit Jada Walker STEREOPTICIAN 08/05/2016 Office visit Jada Walker STEREOPTICIAN 07/21/2016 Office visit Jada Walker STEREOPTICIAN 07/10/2016 [facility] Sage Green MD 07/09/2016 Office visit Valorie MCCLURE 07/09/2016 [facility] Jessica Dhaliwal MD 05/22/2016 Nurse visit Jada Pulliam STEREOPTICIAN 04/13/2016 Office visit Katharina Murdock APR N 04/04/2016 Nurse visit Jada Walker STEREOPTICIAN 03/26/2016 Office visit Jada Walker STEREOPTICIAN 02/29/2016 Office visit Jada Walker STEREOPTICIAN 01/09/2016 Office visit Jada Walker STEREOPTICIAN 11/14/2015 Office visit Jada Walker STEREOPTICIAN 07/16/2015 Nurse visit Jada Walker STEREOPTICIAN 11/30/2014 Office visit Sharon Villanueva 10/18/2014 Office visit Jada Walker STEREOPTICIAN 08/17/2014 Office visit Jaylene Rebolledo MD 06/28/2014 Office visit Jada Walker STEREOPTICIAN 06/01/2014 Office visit Sharon Villanueva 04/28/2014 Nurse visit Jada Walker STEREOPTICIAN 07/20/2013 Office visit Jada Walker STEREOPTICIAN 07/05/2013 Nurse visit Jada Walker STEREOPTICIAN 01/10/2013 Office visit Jada Walker STEREOPTICIAN 12/29/2012 Nurse visit Jada Walker STEREOPTICIAN 06/16/2012 Office visit Jada Walker STEREOPTICIAN 05/04/2012 Office visit Jada Walker STEREOPTICIAN 03/10/2012 Office visit Jada Pulliam STEREOPTICIAN 03/04/2012 Office visit Jada Heraclio STEREOPTICIAN 01/13/2012 Office visit Ezequiel Mahan MD 01/08/2012 Nurse visit Mikki Carrasco MD 12/16/2011 Voided Ezequiel Mahan MD 11/28/2011 Office visit Ezequiel Mahan MD 10/28/2011 Office visit Jada Pulliam STEREOPTICIAN 08/14/2011 Office visit Ezequiel Mahan MD 08/07/2011 Nurse visit Ezequiel Mahan MD 06/03/2011 Office visit Jada Pulliam STEREOPTICIAN 05/07/2011 Office visit Ezequiel Mahan MD 04/28/2011 [...] Office visit Braydon Ramirez DO 08/15/2009 Laboratory rBaydon Ramirez DO 07/02/2009 Office visit Braydon Ramirez DO
--- OUTSIDE RECORDS SUMMARY | 2019-12-14 17:50 | XMS REPORT ---
Author Author Shandra Rice Organization [facility] Address [address] [place] [id number] Care Team Providers Care Tax Advisor Name Role Phone Matt Rice PCP Jada Pulliam PreferredProvider Allergies and Adverse Reactions Name Reaction Notes ciprofloxacin migraine codeine sulfate Plan of Treatment Planned Activity Comments Planned Date Planned Time Plan/Goal Urine Culture, [place] Count 03/04/2016 12:00 AM lumbar pain 12/17/2015 2:00 PM URINALYSIS ROUTINE C&S IF IND 07/15/2018 12:00 AM consult for frequent UTI Mammography; [...] HC BMI BSA BMI Percentile O2 Sat(%) 07/05/2018 7:10:00 PM 162 mmHg 88 mmHg [...] Reviewed 02/29/2016 12:00 AM Rocephin 1 gram [facility]#5105-5260-24 Reviewe d 03/27/2016 12:00 AM INJECT SPINE LUMBAR/SACRAL Reviewed 03/27/2016 12:00 AM URNLS DIP STICK/TABLET RGNT AUTO W/O KATHRIN ROSCOPY Reviewed 03/26/2016 12:00 AM Benadryl, Up to 50 Mg [facility]# 3417-9094-08 Reviewed 04/04/2016 12:00 AM IMMUNOTHERAPY ONE INJECTION Reviewed 10/29/2011 12:00 AM URINALYSIS AUTO W/O SCOPE Reviewed 10/28/2011 12:00 AM COMPLETE CBC W/AUTO DIFF WBC Reviewed 10/28/2011 12:00 AM COMPREHEN METABOLIC PANEL Reviewed 10/28/2011 12:00 AM URINE CULTURE/COLONY COUNT Reviewed 05/22/2016 12:00 AM ALLERGEN SPECIFIC IGE Reviewed 05/22/2016 12:00 AM Decadron, Per 1 Mg [facility]# [address]-90 Re viewed 05/22/2016 12:00 AM Depo-Medrol 40mg [...] Reviewed 01/08/2012 12:00 AM Depo-Medrol 40 mg [facility]#[id number] Reviewe d 09/08/2016 12:00 AM METABOLIC PANEL TOTAL CA Reviewed 09/08/2016 12:00 AM COMPLETE CBC W/AUTO DIFF WBC Reviewed 09/08/2016 12:00 AM RADIOLOGIC EXAM CHEST 2 VIEWS FRONTAL&LA TERAL Reviewed 04/13/2016 12:00 AM Depo-Medrol, Per 80 Mg [facility]#[address]-64 Reviewed 04/13/2016 12:00 AM Decadron, Per 1 Mg [facility]# [address]-91 Re viewed 04/13/2016 12:00 AM THER/PROPH/DIAG INJ [...] 01/10/2013 12:00 AM Decadron, Per 1 Mg [facility]# [address]-65 Re viewed 01/10/2013 12:00 AM Depo-Medrol, Per 80 Mg [facility]#4644-6669-80 Reviewed 06/30/2018 12:[address] LUMBAR SPINE [...] 07/05/2018 12:00 AM THER/PROPH/DIAG INJ SC/IM Reviewed 07/05/2013 12:00 AM Prolia, 60 Mg Reviewed 07/20/2013 12:00 AM THER/PROPH/DIAG INJ SC/IM Reviewed 07/20/2013 12:00 AM Depo-Medrol, Per 80 Mg [place]#6981-3985-60 Reviewed 07/20/2013 12:00 AM Decadron, Per 1 Mg [facility]# [address]-27 Re viewed 05/13/2010 12:00 AM COMPREHEN METABOLIC [...] 10/24/2009 12:00 AM Kenalog 40 Mg [facility]#4527-1345-33 Review ed 12/26/2014 12:00 AM Prolia, 60 [...] CULT SET UP? YES 05/22/2016 3:30 PM U322-UdV D pteronyssinus <0. 10 U/kAM947-CzZ D farinae <0.10 U/yUA442-ZuG Cat Dander <0.10 W643-NyY Dog Dander <0.10 U/hPO736-XxN [place] Grass <0.10 U/oBB131-AmU Bluegrass,[place] <0.10 U/kCN590-YoY [place] Grass <0.10 U/bUZ758-FfW Cockroach,[place] <0.10 G237-RrY Penicilliumchrysogen <0.10 K931-BqB Cladosporiumherbarum <0.10 G579-RwI Aspergillusfumigatus <0.10 Q064-VjZ Mucor racemosus <0.10 E476-IbE Alternariaalternata <0.10 Q509-FgQ Stemphyliumherbarum <0.10 T678-OfX Maple/[place] <0.10 U/cCC878-LoZ [place], White <0.10 U/xTB495-SjD Elm, [place] <0.10 U/rJR372-YcE [place] <0.10 U/kOO572-RlP Merlin, White <0.10 U/nHX562-JiG Maple LeafSycamore <0.10 U/oFH916-VmG [place] <0.10 U/nSM916-MgA Ragweed, Short <0.10 E697-FsI [place] <0.10 W009- IgE Plantain,Cam[place]onian <0.10 Q993-EpZ Thistle, Croatian <0.10 Y030-DrT Pigweed, Common <0.10 V247-IvU Sheep [place] <0.10 M259-WyY Milk <0.10 Y591-PhZ Wheat <0.10 U/oOM098-UaA [place] <0.10 U/tLJ732-ZfH Peanut <0.10 U/tLD115-YfR Soybean <0.10 U/pXQ600-VqR Pork <0.10 U/oVN942-RiI Beef <0.10 U/xXQG85-FsO Food Mix(Seafoods) Negative H917-PsO Egg, Whole <0.10 U/lGW777-XeN Chocolate/[place] <0.10 07/21/2016 3:26 PM GLUCOSE 104.0 mg/dLSODIUM [...] 2018 7:16PM Dysuria Jul 15 2018 3:40PM Payers Insurance Name Company Name Plan Name Plan Number Policy Number Sanjay cy Group Number Start Date Medicare Part B Medicare Of [place] [id number] N/A [facility] [id number] N/A [facility] [id number] 2013 Medicare Part A Medicare Part A [id number] Friday, 2013 [employer] [place] Retriement [id number] N/A Medicare Part B Medicare Of [place] [id number] Friday, 2013 [employer] [facility] [place] Life Ins [id number] N/A Medicare Part A ZZZMedicare P A - Preventive [id number] N/A Medicare RHC Medicare RHC [id number] N/A Medicare Part A Medicare - Lab/Xray [id number] N/A History of Encounters Visit Date Visit Type Provider 07/05/2018 Office visit Matt Groverran APR N 06/29/2018 Office visit Chadd Lucio MD 04/20/2018 Office visit Jada Walker COLLECTION OFFICER 03/19/2018 Procedures Hermilo Bouman DO 03/12/2018 Procedures Hermilo Bouman DO 02/26/2018 Procedures Hermilo Bouman DO 01/03/2018 Office visit [facility] APR N 10/08/2017 Office visit Jada Walker COLLECTION OFFICER 10/06/2017 Office visit Jada Walker COLLECTION OFFICER 10/07/2016 [facility] Jessica Dhaliwal MD 08/12/2016 Office visit Jada Walker COLLECTION OFFICER 08/05/2016 Office visit Jada Walker COLLECTION OFFICER 07/21/2016 Office visit Jada Walker COLLECTION OFFICER 07/10/2016 [facility] Sage Green MD 07/09/2016 Office visit Valorie MCCLURE 07/09/2016 [facility] Jessica Dhaliwal MD 05/22/2016 Nurse visit Jada Walker COLLECTION OFFICER 04/13/2016 Office visit Kathar[facility] APR N 04/04/2016 Nurse visit Jada Walker COLLECTION OFFICER 03/26/2016 Office visit Jada Walker COLLECTION OFFICER 02/29/2016 Office visit Jada Walker COLLECTION OFFICER 01/09/2016 Office visit Jada Walker COLLECTION OFFICER 11/14/2015 Office visit Jada Walker COLLECTION OFFICER 07/16/2015 Nurse visit Jada Walker COLLECTION OFFICER 11/30/2014 Office visit Sharon Villanueva 10/18/2014 Office visit Jada Walker COLLECTION OFFICER 08/17/2014 Office visit Jaylene Rebolledo MD 06/28/2014 Office visit Jada Walker COLLECTION OFFICER 06/01/2014 Office visit Sharon Villanueva 04/28/2014 Nurse visit Jada Walker COLLECTION OFFICER 07/20/2013 Office visit Jada Walker COLLECTION OFFICER 07/05/2013 Nurse visit Jada Walker COLLECTION OFFICER 01/10/2013 Office visit Jada Walker COLLECTION OFFICER 12/29/2012 Nurse visit Jada Walker COLLECTION OFFICER 06/16/2012 Office visit Jdaa Walker COLLECTION OFFICER 05/04/2012 Office visit Jada Walker COLLECTION OFFICER 03/10/2012 Office visit Jada Walker COLLECTION OFFICER 03/04/2012 Office visit Jada Walker COLLECTION OFFICER 01/13/2012 Office visit Ezequiel Mahan MD 01/08/2012 Nurse visit Mikki Carrasco MD 12/16/2011 Voided Ezequiel Mahan MD 11/28/2011 Office visit Ezequiel Mahan MD 10/28/2011 Office visit Jada Pulliam APRN 08/14/2011 Office visit Ezequiel Mahan MD 08/07/2011 Nurse visit Ezequiel Mahan MD 06/03/2011 Office visit Jada Pulliam APRN 05/07/2011 Office visit Ezequiel Mahan MD 04/28/2011 [...]
--- OUTSIDE RECORDS SUMMARY | 2019-12-14 17:51 | XMS REPORT ---
Author Author Shandra Rice Organization [facility] Address [address] [place] [id number] Care Team Providers Care Director Index Name Role Phone Matt Rice PCP Jada Pulliam PreferredProvider Allergies and Adverse Reactions Name Reaction Notes ciprofloxacin migraine codeine sulfate Plan of Treatment Planned Activity Comments Planned Date Planned Time Plan/Goal Urine Culture, [place] Count 03/04/2016 12:00 AM lumbar pain 12/17/2015 [...] Reviewed 02/29/2016 12:00 AM Rocephin 1 gram [facility] [place] 2[place]#9736-3578-80 Reviewe d 03/27/2016 12:00 AM INJECT SPINE LUMBAR/SACRAL Reviewed 03/27/2016 12:00 AM URNLS DIP STICK/TABLET RGNT AUTO W/O KATHRIN ROSCOPY Reviewed 03/26/2016 12:00 AM Benadryl, Up to 50 Mg [facility] [place] 2[place]# 1433-8132-47 Reviewed 04/04/2016 12:00 AM IMMUNOTHERAPY ONE INJECTION Reviewed 10/29/2011 12:00 AM URINALYSIS AUTO W/O SCOPE Reviewed 10/28/2011 12:00 AM COMPLETE CBC W/AUTO DIFF WBC Reviewed 10/28/2011 12:00 AM COMPREHEN METABOLIC PANEL Reviewed 10/28/2011 12:00 AM URINE CULTURE/COLONY COUNT Reviewed 05/22/2016 12:00 AM ALLERGEN SPECIFIC IGE Reviewed 05/22/2016 12:00 AM Decadron, Per 1 Mg [facility] [place] 2[place]# [address]-34 Re viewed 05/22/2016 12:00 AM Depo-Medrol 40mg [...] Reviewed 01/08/2012 12:00 AM Depo-Medrol 40 mg [facility] [place] 2[place]#[id number] Reviewe d 09/08/2016 12:00 AM METABOLIC PANEL TOTAL CA Reviewed 09/08/2016 12:00 AM COMPLETE CBC W/AUTO DIFF WBC Reviewed 09/08/2016 12:00 AM RADIOLOGIC EXAM CHEST 2 VIEWS FRONTAL&LA TERAL Reviewed 04/13/2016 12:00 AM Depo-Medrol, Per 80 Mg [facility] [place] 2[place]#[address]-15 Reviewed 04/13/2016 12:00 AM Decadron, Per 1 Mg [facility] [place] 2[place]# [address]-95 Re viewed 04/13/2016 12:00 AM THER/PROPH/DIAG INJ [...] 01/10/2013 12:00 AM Decadron, Per 1 Mg [facility] [place]NOTE 2[place]# [address]-56 Re viewed 01/10/2013 12:00 AM Depo-Medrol, Per 80 Mg NDC#8367-9302-47 Reviewed 06/30/2018 12:[address] LUMBAR SPINE [...] 07/20/2013 12:00 AM Depo-Medrol, Per 80 Mg NDC#6382-0134-65 Reviewed 07/20/2013 12:00 AM Decadron, Per 1 Mg NDC# [address]-81 Re viewed 05/13/2010 12:00 AM COMPREHEN METABOLIC [...] Reviewed 10/24/2009 12:00 AM Kenalog 40 Mg [facility]#0560-1704-07 Review ed 12/26/2014 12:00 AM Prolia, 60 [...] CULT SET UP? YES 05/22/2016 3:30 PM X426-GdA D pteronyssinus <0. 10 U/sCR490-HxK D farinae <0.10 U/xJG630-ZzJ Cat Dander <0.10 F307-JcQ Dog Dander <0.10 U/rAV388-EsG [place] Grass <0.10 U/iWH423-GdC Bluegrass,[place] <0.10 U/eIF247-MuZ [place] Grass <0.10 U/eRF407-HqO Cockroach,Togolese <0.10 G941-OwA Penicilliumchrysogen <0.10 B516-PtZ Cladosporiumherbarum <0.10 E576-IhG Aspergillusfumigatus <0.10 O301-UbZ Mucor racemosus <0.10 J540-AjK Alternariaalternata <0.10 B078-FgK Stemphyliumherbarum <0.10 X630-KxF Maple/[place] <0.10 U/jXP884-LhJ [place], White <0.10 U/gFB786-ChI Elm, Togolese <0.10 U/bOZ213-DuM [place] <0.10 U/yGT270-QjL Merlin, White <0.10 U/mOG075-UmO Maple LeafSycamore <0.10 U/rFA868-PwA [place] <0.10 U/mMA798-VvK Ragweed, Short <0.10 F893-OpA [place] <0.10 W009- IgE Plantain,Telugu <0.10 S188-XfP Thistle, [place]an <0.10 X734-XsV Pigweed, Common <0.10 X608-UrS Sheep [place] <0.10 Z933-PwP Milk <0.10 E065-PzT Wheat <0.10 U/cFJ083-KpY [place] <0.10 U/wGE528-TmK Peanut <0.10 U/yPP376-PyZ Soybean <0.10 U/uXW606-YaY Pork <0.10 U/nFL108-HdO Beef <0.10 U/aEAY64-SgK Food Mix(Seafoods) Negative M845-ReG Egg, Whole <0.10 U/yEF220-KdN Chocolate/[place] <0.10 07/21/2016 3:26 PM GLUCOSE 104.0 mg/dLSODIUM [...] trace History Of Immunizations Name Date Admin [facility] [place] [facility] Code Trade Name Lot# Route Inj Vis [...] 29 2012 11:32AM Upper Respiratory Infections Jan 8 2012 1:35PM Osteopenia Jul 05 2013 1:33PM Left [...] cystitis without hematuria Jul 05 2018 7:16PM Payers Insurance Name Company Name Plan Name Plan Number Policy Number Sanjay cy Group Number Start Date Medicare Part B Medicare [place] [id number] N/A [facility] [id number] N/A [facility] [id number] 2013 Medicare Part A Medicare Part A [id number] Friday, 2013 [employer] Togolese Retriement [id number] N/A Medicare Part B Medicare [place] [id number] Friday, 2013 [employer] [facility] hia Togolese Life Ins [id number] N/A Medicare Part A ZZZMedicare P A - Preventive [id number] N/A Medicare RHC Medicare [facility] [id number] N/A Medicare Part A Medicare - Lab/Xray [id number] N/A History of Encounters Visit Date Visit Type Provider 07/05/2018 Office visit Matt Rice APR N 06/29/2018 Office visit Chadd Lucio MD 04/20/2018 Office visit Jada Walker ASSISTANT BASKETBALL COACH 03/19/2018 Procedures Hermilo Bouman DO 03/12/2018 Procedures Hermilo Bouman DO 02/26/2018 Procedures Hermilo Bouman DO 01/03/2018 Office visit Katharina L. [place] APR N 10/08/2017 Office visit Jada Walker ASSISTANT BASKETBALL COACH 10/06/2017 Office visit Jada Walker ASSISTANT BASKETBALL COACH 10/07/2016 [facility] Jessica Dhaliwal MD 08/12/2016 Office visit Jada Walker ASSISTANT BASKETBALL COACH 08/05/2016 Office visit Jada Walker ASSISTANT BASKETBALL COACH 07/21/2016 Office visit Jada Walker ASSISTANT BASKETBALL COACH 07/10/2016 [facility] Sage Green MD 07/09/2016 Office visit Valorie MCCLURE 07/09/2016 [facility] Jessica Dhaliwal MD 05/22/2016 Nurse visit Jada Walker ASSISTANT BASKETBALL COACH 04/13/2016 Office visit Katharina Balderasong APR N 04/04/2016 Nurse visit Jada Walker ASSISTANT BASKETBALL COACH 03/26/2016 Office visit Jada Walker ASSISTANT BASKETBALL COACH 02/29/2016 Office visit Jada Walker ASSISTANT BASKETBALL COACH 01/09/2016 Office visit Jada Walker ASSISTANT BASKETBALL COACH 11/14/2015 Office visit Jada Walker ASSISTANT BASKETBALL COACH 07/16/2015 Nurse visit Jada Walker ASSISTANT BASKETBALL COACH 11/30/2014 Office visit Sharon Villanueva 10/18/2014 Office visit Jada Walker ASSISTANT BASKETBALL COACH 08/17/2014 Office visit Jaylene Rebolledo MD 06/28/2014 Office visit Jada Walker ASSISTANT BASKETBALL COACH 06/01/2014 Office visit Sharon Villanueva 04/28/2014 Nurse visit Jada Walker ASSISTANT BASKETBALL COACH 07/20/2013 Office visit Jada Walker ASSISTANT BASKETBALL COACH 07/05/2013 Nurse visit Jada Walker ASSISTANT BASKETBALL COACH 01/10/2013 Office visit Jada Walker ASSISTANT BASKETBALL COACH 12/29/2012 Nurse visit Jada Walker ASSISTANT BASKETBALL COACH 06/16/2012 Office visit Jada Walker ASSISTANT BASKETBALL COACH 05/04/2012 Office visit Jada Walker ASSISTANT BASKETBALL COACH 03/10/2012 Office visit Jada Walker ASSISTANT BASKETBALL COACH 03/04/2012 Office visit Jada Walker ASSISTANT BASKETBALL COACH 01/13/2012 Office visit Ezequiel Mahan MD 01/08/2012 Nurse visit Mikki Carrasco MD 12/16/2011 Voided Ezequiel Mahan MD 11/28/2011 Office visit Ezequiel Mahan MD 10/28/2011 Office visit Jada Pulliam ASSISTANT BASKETBALL COACH 08/14/2011 Office visit Ezequiel Mahan MD 08/07/2011 [...]
--- OUTSIDE RECORDS SUMMARY | 2019-12-14 17:52 | XMS REPORT ---
Author Author Shandra Lucio Organization [facility] oup Address [address] [place] [id number] Care Team Providers Care Granular Operator Name Role Phone Chadd Lucio PCP Jada Pulliam PreferredProvider Allergies and Adverse Reactions Name Reaction Notes ciprofloxacin migraine codeine sulfate Plan of Treatment Planned Activity Comments Planned Date Planned Time Plan/Goal Urine Culture, [place] Count 03/04/2016 12:00 AM lumbar pain 12/17/2015 2:[address] LUMBAR W/O CONTRAST 06/30/2018 12:00 AM CBC W/ AUTO DIFF (RFLX MAN DIFF IF IND). 06/30/2018 12:00 AM PT 06/30/2018 12:00 AM PTT. 06/30/2018 12:00 AM URINALYSIS ROUTINE ONLY 06/30/2018 12:00 AM BMP 06/30/2018 12:00 AM EKG. 06/30/2018 12:00 AM Chest PA and Lateral - Main 06/30/2018 12:00 AM consult for frequent UTI Mammography; [...] TABLET BY MOUTH ONCE DAILY AT BEDTIME estradiol 0.01 % (0.1 mg/gram) vaginal cream 03/20/2018 INSERT ONE APPLICATORFUL VAGINALLY TWICE A WEEK gabapentin 300 mg oral capsule 04/20/2018 t [...] 1 caps ule by oral route daily Name Start Date Expiration Date SIG Comments [...] route every 12 hours for 3 days Discontinued Name Start Date Discontinued Date [...] HC BMI BSA BMI Percentile O2 Sat(%) 06/29/2018 11:16:00 AM 136 mmHg 76 mmHg [...] Reviewed 02/29/2016 12:00 AM Rocephin 1 gram [facility]#6663-5293-42 Reviewe d 03/27/2016 12:00 AM INJECT SPINE LUMBAR/SACRAL Reviewed 03/27/2016 12:00 AM URNLS DIP STICK/TABLET RGNT AUTO W/O KATHRIN ROSCOPY Reviewed 03/26/2016 12:00 AM Benadryl, Up to 50 Mg [facility]# 6351-2445-27 Reviewed 04/04/2016 12:00 AM IMMUNOTHERAPY ONE INJECTION Reviewed 10/29/2011 12:00 AM URINALYSIS AUTO W/O SCOPE Reviewed 10/28/2011 12:00 AM COMPLETE CBC W/AUTO DIFF WBC Reviewed 10/28/2011 12:00 AM COMPREHEN METABOLIC PANEL Reviewed 10/28/2011 12:00 AM URINE CULTURE/COLONY COUNT Reviewed 05/22/2016 12:00 AM ALLERGEN SPECIFIC IGE Reviewed 05/22/2016 12:00 AM Decadron, Per 1 Mg [facility]# [address]-58 Re viewed 05/22/2016 12:00 AM Depo-Medrol 40mg [...] Reviewed 01/08/2012 12:00 AM Depo-Medrol 40 mg [facility]#[id number] Reviewe d 09/08/2016 12:00 AM METABOLIC PANEL TOTAL CA Reviewed 09/08/2016 12:00 AM COMPLETE CBC W/AUTO DIFF WBC Reviewed 09/08/2016 12:00 AM RADIOLOGIC EXAM CHEST 2 VIEWS FRONTAL&LA TERAL Reviewed 04/13/2016 12:00 AM Depo-Medrol, Per 80 Mg [facility]#[address]-46 Reviewed 04/13/2016 12:00 AM Decadron, Per 1 Mg [facility]# [address]-81 Re viewed 04/13/2016 12:00 AM THER/PROPH/DIAG INJ [...] 01/10/2013 12:00 AM Decadron, Per 1 Mg [facility]# [address]-2012-20 Re viewed 01/10/2013 12:00 AM Depo-Medrol, Per 80 Mg [facility]#3447-1201-20 Reviewed 07/05/2013 12:00 AM Prolia, 60 Mg Reviewed 07/20/2013 12:00 AM THER/PROPH/DIAG INJ SC/IM Reviewed 07/20/2013 12:00 AM Depo-Medrol, Per 80 Mg [facility]#1241-1296-02 Reviewed 07/20/2013 12:00 AM Decadron, Per 1 Mg [facility]# [address]-63 Re viewed 05/13/2010 12:00 AM COMPREHEN METABOLIC [...] Reviewed 10/24/2009 12:00 AM Kenalog 40 Mg [facility]#2231-6891-55 Review ed 12/26/2014 12:00 AM Prolia, 60 [...] CULT SET UP? YES 05/22/2016 3:30 PM L294-XyT D pteronyssinus <0. 10 U/iVR167-BgG D farinae <0.10 U/dAT779-JxX Cat Dander <0.10 H804-AnQ Dog Dander <0.10 U/bWO683-CfQ [place] Grass <0.10 U/rCN541-AeN Bluegrass,[place] <0.10 U/fVN158-EvK [place] Grass <0.10 U/mPV532-HpA Cockroach,Bhutanese <0.10 J676-KpT Penicilliumchrysogen <0.10 N237-TrM Cladosporiumherbarum <0.10 V470-BpR Aspergillusfumigatus <0.10 E350-DiH Mucor racemosus <0.10 T635-BkK Alternariaalternata <0.10 I936-JiF Stemphyliumherbarum <0.10 B012-DrQ Maple/[place] <0.10 U/uQR074-JqE [place], White <0.10 U/cZC672-NyM Elm, Bhutanese <0.10 U/zUE771-JkI [place] <0.10 U/aAH034-DxB Merlin, White <0.10 U/tBS229-FyO Maple LeafSycamore <0.10 U/rRN013-LsO [place] <0.10 U/zUQ584-NlH Ragweed, Short <0.10 L953-AaC [place] <0.10 W009- IgE Plantain,New Zealander <0.10 H028-UtQ Thistle, Palauan <0.10 T706-AuQ Pigweed, Common <0.10 X999-BvQ Sheep [place] <0.10 K152-GrZ Milk <0.10 J574-OtL Wheat <0.10 U/qKG547-ZyH [place] <0.10 U/zDK316-MrS Peanut <0.10 U/xXP785-VuN Soybean <0.10 U/lXP239-AtP Pork <0.10 U/wEO609-XhN Beef <0.10 U/lHOD48-JhB Food Mix(Seafoods) Negative G554-FeC Egg, Whole <0.10 U/oYL170-QsK Chocolate/[place] <0.10 07/21/2016 3:26 PM GLUCOSE 104.0 mg/dLSODIUM [...] Ql Strip negative WBC # Ur negative History Of Immunizations Name Date Admin Mfg [...] 2:01PM Preop examination Jun 30 2018 2:01PM Payers Insurance Name Company Name Plan Name Plan Number Policy Number Sanjay cy Group Number Start Date Medicare Part B Medicare [facility] [id number] N/A [facility] [id number] N/A BCBS Bcbs [facility] [id number] 2013 Medicare Part A Medicare Part A [id number] Friday, 2013 [place] [employer] Bhutanese Retriement [id number] N/A Medicare Part B Medicare [facility] [id number] Friday, 2013 [employer] [facility] hia Bhutanese Life Ins [id number] N/A Medicare Part A ZZZMedicare P A - Preventive [id number] N/A Medicare RHC Medicare RHC [id number] N/A Medicare Part A Medicare - Lab/Xray [id number] N/A History of Encounters Visit Date Visit Type Provider 06/29/2018 Office visit Chadd Lucio MD 04/20/2018 Office visit Jada Pulliam COPY MACHINE OPERATOR 03/19/2018 Procedures Hermilo Bouman DO 03/12/2018 Procedures Hermilo Bouman DO 02/26/2018 Procedures Hermilo Bouman DO 01/03/2018 Office visit Katharina Murdock APR N 10/08/2017 Office visit Jada Pulliam COPY MACHINE OPERATOR 10/06/2017 Office visit Jada Pulliam COPY MACHINE OPERATOR 10/07/2016 [facility] Jessica Dhaliwal MD 08/12/2016 Office visit Jada Pulliam COPY MACHINE OPERATOR 08/05/2016 Office visit Jada Pulliam COPY MACHINE OPERATOR 07/21/2016 Office visit Jada Pulliam COPY MACHINE OPERATOR 07/10/2016 [facility] Sage Green MD 07/09/2016 Office visit Valorie MCCLURE 07/09/2016 [facility] Jessica Dhaliwal MD 05/22/2016 Nurse visit Jada Pulliam COPY MACHINE OPERATOR 04/13/2016 Office visit Katharina Murdock APR N 04/04/2016 Nurse visit Jada Pulliam COPY MACHINE OPERATOR 03/26/2016 Office visit Jada Pulliam COPY MACHINE OPERATOR 02/29/2016 Office visit Jada Pulliam COPY MACHINE OPERATOR 01/09/2016 Office visit Jada Pulliam COPY MACHINE OPERATOR 11/14/2015 Office visit Jada Pulliam COPY MACHINE OPERATOR 07/16/2015 Nurse visit Jada Pulliam COPY MACHINE OPERATOR 11/30/2014 Office visit Sharon Villanueva 10/18/2014 Office visit Jada Pulliam COPY MACHINE OPERATOR 08/17/2014 Office visit Jaylene Rebolledo MD 06/28/2014 Office visit Jada Pulliam COPY MACHINE OPERATOR 06/01/2014 Office visit Sharon Villanueva 04/28/2014 Nurse visit Jada Pulliam COPY MACHINE OPERATOR 07/20/2013 Office visit Jada Pulliam COPY MACHINE OPERATOR 07/05/2013 Nurse visit Jada Walker COPY MACHINE OPERATOR 01/10/2013 Office visit Jada Walker COPY MACHINE OPERATOR 12/29/2012 Nurse visit Jada Walker COPY MACHINE OPERATOR 06/16/2012 Office visit Jada Walker COPY MACHINE OPERATOR 05/04/2012 Office visit Jada Pulliam COPY MACHINE OPERATOR 03/10/2012 Office visit Jada Pulliam COPY MACHINE OPERATOR 03/04/2012 Office visit Jada Pulliam COPY MACHINE OPERATOR 01/13/2012 Office visit Ezequiel Mahan MD 01/08/2012 Nurse visit Mikki Carrasco MD 12/16/2011 Voided Ezequiel Mahan MD 11/28/2011 Office visit Ezequiel Mahan MD 10/28/2011 Office visit Jada Pulliam COPY MACHINE OPERATOR 08/14/2011 Office visit Ezequiel Mahan MD 08/07/2011 Nurse visit Ezequiel Mahan MD 06/03/2011 Office visit Jada Pulliam COPY MACHINE OPERATOR 05/07/2011 Office visit Ezequiel Mahan [...]
--- OUTSIDE RECORDS SUMMARY | 2019-12-14 17:53 | XMS REPORT ---
Author Author Shandra Lucio Organization [facility] Address [address] [place] [id number] Care Team Providers Care Branch Service Leader Name Role Phone Chadd uLcio PCP Jada Pulliam PreferredProvider Allergies and Adverse Reactions Name Reaction Notes ciprofloxacin migraine codeine sulfate Plan of Treatment Planned Activity Comments Planned Date Planned Time Plan/Goal Urine Culture, [place] Count 03/04/2016 12:00 AM lumbar pain 12/17/2015 [...] 1,000 mg oral capsule take 1 cap eilane by oral route daily tretinoin 0.025 % [...] Reviewed 02/29/2016 12:00 AM Rocephin 1 gram [facility]#1280-5012-09 Reviewe d 03/27/2016 12:00 AM INJECT SPINE LUMBAR/SACRAL Reviewed 03/27/2016 12:00 AM URNLS DIP STICK/TABLET RGNT AUTO W/O KATHRIN ROSCOPY Reviewed 03/26/2016 12:00 AM Benadryl, Up to 50 Mg [facility]# 4086-7117-91 Reviewed 04/04/2016 12:00 AM IMMUNOTHERAPY ONE INJECTION Reviewed 10/29/2011 12:00 AM URINALYSIS AUTO W/O SCOPE Reviewed 10/28/2011 12:00 AM COMPLETE CBC W/AUTO DIFF WBC Reviewed 10/28/2011 12:00 AM COMPREHEN METABOLIC PANEL Reviewed 10/28/2011 12:00 AM URINE CULTURE/COLONY COUNT Reviewed 05/22/2016 12:00 AM ALLERGEN SPECIFIC IGE Reviewed 05/22/2016 12:00 AM Decadron, Per 1 Mg [facility]# [address]-54 Re viewed 05/22/2016 12:00 AM Depo-Medrol 40mg [...] Reviewed 01/08/2012 12:00 AM Depo-Medrol 40 mg [facility]#2612053339 Reviewe d 09/08/2016 12:00 AM METABOLIC PANEL TOTAL CA Reviewed 09/08/2016 12:00 AM COMPLETE CBC W/AUTO DIFF WBC Reviewed 09/08/2016 12:00 AM RADIOLOGIC EXAM CHEST 2 VIEWS FRONTAL&LA TERAL Reviewed 04/13/2016 12:00 AM Depo-Medrol, Per 80 Mg [facility]#[address]-22 Reviewed 04/13/2016 12:00 AM Decadron, Per 1 Mg [facility]# [address]-57 Re viewed 04/13/2016 12:00 AM THER/PROPH/DIAG INJ [...] 01/10/2013 12:00 AM Decadron, Per 1 Mg [facility]# [address]-38 Re viewed 01/10/2013 12:00 AM Depo-Medrol, Per 80 Mg [facility]#9314-5025-12 Reviewed 07/05/2013 12:00 AM Prolia, 60 Mg Reviewed 07/20/2013 12:00 AM THER/PROPH/DIAG INJ SC/IM Reviewed 07/20/2013 12:00 AM Depo-Medrol, Per 80 Mg [facility]#2993-9096-20 Reviewed 07/20/2013 12:00 AM Decadron, Per 1 Mg [facility]# [address]-05 Re viewed 05/13/2010 12:00 AM COMPREHEN METABOLIC [...] Reviewed 10/24/2009 12:00 AM Kenalog 40 Mg [facility]#2584-3115-25 Review ed 12/26/2014 12:00 AM Prolia, 60 [...] CULT SET UP? YES 05/22/2016 3:30 PM R203-BiL D pteronyssinus <0. 10 U/xEH357-VfN D farinae <0.10 U/sGO830-XpR Cat Dander <0.10 Z424-HaP Dog Dander <0.10 U/bMI816-TuD [place] Grass <0.10 U/bEE567-CwL Bluegrass,[place] <0.10 U/uHI513-UxK [place] Grass <0.10 U/fJF815-TrS Cockroach,Mauritian <0.10 F705-ZaV Penicilliumchrysogen <0.10 W627-NhP Cladosporiumherbarum <0.10 A851-AmN Aspergillusfumigatus <0.10 E902-QiU Mucor racemosus <0.10 J277-FmH Alternariaalternata <0.10 H251-OtM Stemphyliumherbarum <0.10 P204-InI Maple/[place] <0.10 U/vLH365-EvL [place], White <0.10 U/mXF026-XjL Elm, Mauritian <0.10 U/zTH679-KmE [place] <0.10 U/yIT679-BeK Merlin, White <0.10 U/xGB182-BhU Maple LeafSycamore <0.10 U/pPB924-SxQ White [place] <0.10 U/iXZ327-TqT Ragweed, Short <0.10 F293-NtZ [place] <0.10 W009- IgE Plantain,Guinean <0.10 Z910-QyT Thistle, Panamanian <0.10 I274-GrG Pigweed, Common <0.10 W502-OyX Sheep [place] <0.10 S847-FlB Milk <0.10 X082-LpV Wheat <0.10 U/jKD015-QvA [place] <0.10 U/mZS263-VdE Peanut <0.10 U/vDG310-FdL Soybean <0.10 U/xIU640-PzP Pork <0.10 U/oWS032-PbB Beef <0.10 U/gRIZ43-JtM Food Mix(Seafoods) Negative B529-YrR Egg, Whole <0.10 U/yCL385-KmU Chocolate/[place] <0.10 07/21/2016 3:26 PM GLUCOSE 104.0 mg/dLSODIUM [...] Number Start Date Medicare Part B Medicare [facility] [id number] N/A [facility] [id number] N/A BCBS [employer] [facility] [id number] 2013 Medicare Part A Medicare Part A [id number] Friday, 2013 [employer] Mauritian Retriement [id number] N/A Medicare Part B Medicare [facility] [id number] Friday, 2013 [place] [employer] [facility] hia Mauritian Life Ins [id number] N/A Medicare Part A ZZZMedicare P A - Preventive [id number] N/A Medicare RHC Medicare RHC [id number] N/A Medicare Part A Medicare - Lab/Xray [id number] N/A History of Encounters Visit Date Visit Type Provider 06/29/2018 Office visit Chadd Lucio MD 04/20/2018 Office visit Jada Pulliam MANUFACTURING MILLWRIGHT 03/19/2018 Procedures Hermilo Bouman DO 03/12/2018 Procedures Hermilo Bouman DO 02/26/2018 Procedures Hermilo Bouman DO 01/03/2018 Office visit Katharina Murdock APR N 10/08/2017 Office visit Jada Pulliam MANUFACTURING MILLWRIGHT 10/06/2017 Office visit Jada Pulliam MANUFACTURING MILLWRIGHT 10/07/2016 [facility] Jessica Dhaliwal MD 08/12/2016 Office visit Jada Pulliam MANUFACTURING MILLWRIGHT 08/05/2016 Office visit Jada Pulliam MANUFACTURING MILLWRIGHT 07/21/2016 Office visit Jada Pulliam MANUFACTURING MILLWRIGHT 07/10/2016 [facility] Sage Green MD 07/09/2016 Office visit Valorie MCCLURE 07/09/2016 [facility] Jessica Dhaliwal MD 05/22/2016 Nurse visit Jada Pulliam MANUFACTURING MILLWRIGHT 04/13/2016 Office visit Katharina Murdock APR N 04/04/2016 Nurse visit Jada Pulliam MANUFACTURING MILLWRIGHT 03/26/2016 Office visit Jada Pulliam MANUFACTURING MILLWRIGHT 02/29/2016 Office visit Jada Pulliam MANUFACTURING MILLWRIGHT 01/09/2016 Office visit Jada Pulliam MANUFACTURING MILLWRIGHT 11/14/2015 Office visit Jada Pulliam MANUFACTURING MILLWRIGHT 07/16/2015 Nurse visit Jada Pullima MANUFACTURING MILLWRIGHT 11/30/2014 Office visit Sharon Villanueva 10/18/2014 Office visit Jada Pulliam MANUFACTURING MILLWRIGHT 08/17/2014 Office visit Jaylene Rebolledo MD 06/28/2014 Office visit Jada Pulliam MANUFACTURING MILLWRIGHT 06/01/2014 Office visit Sharon Villanueva 04/28/2014 Nurse visit Jada Pulliam MANUFACTURING MILLWRIGHT 07/20/2013 Office visit Jada Pulliam MANUFACTURING MILLWRIGHT 07/05/2013 Nurse visit Jada Walker MANUFACTURING MILLWRIGHT 01/10/2013 Office visit Jada Walker MANUFACTURING MILLWRIGHT 12/29/2012 Nurse visit Jada Walker MANUFACTURING MILLWRIGHT 06/16/2012 Office visit Jada Walker MANUFACTURING MILLWRIGHT 05/04/2012 Office visit Jada Pulilam MANUFACTURING MILLWRIGHT 03/10/2012 Office visit Jada Pulliam MANUFACTURING MILLWRIGHT 03/04/2012 Office visit Jada Pulliam MANUFACTURING MILLWRIGHT 01/13/2012 Office visit Ezequiel Mahan MD 01/08/2012 Nurse visit Mikki Carrasco MD 12/16/2011 Voided Ezequiel Mahan MD 11/28/2011 Office visit Ezequiel Mahan MD 10/28/2011 Office visit Jada Pulliam MANUFACTURING MILLWRIGHT 08/14/2011 Office visit Ezequiel Mahan MD 08/07/2011 Nurse visit Ezequiel Mahan MD 06/03/2011 Office visit Jada Pulliam MANUFACTURING MILLWRIGHT 05/07/2011 Office visit Ezequiel Mahan MD 04/28/2011 Voidvelma Mhaan MD 11/18/2010 Office visit Braydon Ramirez DO [...]
--- OUTSIDE RECORDS SUMMARY | 2019-12-14 17:54 | XMS REPORT ---
Author Author Shandra Lucio Organization [facility] Address [address] [place] [id number] Care Team Providers Care Machine Operations Supervisor Name Role Phone Chadd Lucio PCP Jada Pulliam PreferredProvider Allergies and Adverse Reactions Name Reaction Notes ciprofloxacin migraine codeine sulfate Plan of Treatment Planned Activity Comments Planned Date Planned Time Plan/Goal Urine Culture, [place] Count 03/04/2016 12:00 AM lumbar pain 12/17/2015 2:[address] LUMBAR W/O CONTRAST 06/30/2018 12:00 AM consult for frequent UTI [...] diclofenac sodium 75 mg oral tablet,delayed release (/EC) 201706/29/2018 take 1 tablet (75 mg) by [...] Rocephin 1 gram [facility]#0400-9336-78 Reviewe d 03/27/2016 12:00 AM INJECT SPINE LUMBAR/SACRAL Reviewed 03/27/2016 12:00 AM URNLS DIP STICK/TABLET RGNT AUTO W/O KATHRIN ROSCOPY Reviewed 03/26/2016 12:00 AM Benadryl, Up to 50 Mg [facility]# 0391-5449-63 Reviewed 04/04/2016 12:00 AM IMMUNOTHERAPY ONE INJECTION Reviewed 10/29/2011 12:00 AM URINALYSIS AUTO W/O SCOPE Reviewed 10/28/2011 12:00 AM COMPLETE CBC W/AUTO DIFF WBC Reviewed 10/28/2011 12:00 AM COMPREHEN METABOLIC PANEL Reviewed 10/28/2011 12:00 AM URINE CULTURE/COLONY COUNT Reviewed 05/22/2016 12:00 AM ALLERGEN SPECIFIC IGE Reviewed 05/22/2016 12:00 AM Decadron, Per 1 Mg [facility]# [address]-57 Re viewed 05/22/2016 12:00 AM Depo-Medrol 40mg [...] Depo-Medrol 40 mg [facility]#9064067727 Reviewe d 09/08/2016 12:00 AM METABOLIC PANEL TOTAL CA Reviewed 09/08/2016 12:00 AM COMPLETE CBC W/AUTO DIFF WBC Reviewed 09/08/2016 12:00 AM RADIOLOGIC EXAM CHEST 2 VIEWS FRONTAL&LA TERAL Reviewed 04/13/2016 12:00 AM Depo-Medrol, Per 80 Mg [facility]#[address]-53 Reviewed 04/13/2016 12:00 AM Decadron, Per 1 Mg [facility]# [address]-14 Re viewed 04/13/2016 12:00 AM THER/PROPH/DIAG INJ [...] Per 1 Mg [facility]# [address]-59 Re viewed 01/10/2013 12:00 AM Depo-Medrol, Per 80 Mg [facility]#1148-9595-00 Reviewed 07/05/2013 12:00 AM Prolia, 60 Mg Reviewed 07/20/2013 12:00 AM THER/PROPH/DIAG INJ SC/IM Reviewed 07/20/2013 12:00 AM Depo-Medrol, Per 80 Mg [facility]#2193-6897-24 Reviewed 07/20/2013 12:00 AM Decadron, Per 1 Mg [facility]# [address]-56 Re viewed 05/13/2010 12:00 AM COMPREHEN METABOLIC [...] 12:00 AM Kenalog 40 Mg [facility]#9077-8306-99 Review ed 12/26/2014 12:00 AM Prolia, 60 [...] CULT SET UP? YES 05/22/2016 3:30 PM U341-GaS D pteronyssinus <0. 10 U/dCG246-UsA D farinae <0.10 U/hLY828-ReJ Cat Dander <0.10 Y984-GyV Dog Dander <0.10 U/kLV658-OvR [place] Grass <0.10 U/xMW163-GeN Bluegrass,[place] <0.10 U/qNF743-QsA [place] Grass <0.10 U/yER521-GpN Cockroach,Luxembourger <0.10 V877-AsC Penicilliumchrysogen <0.10 D871-VxT Cladosporiumherbarum <0.10 A596-YxB Aspergillusfumigatus <0.10 W783-EbP Mucor racemosus <0.10 W044-OmP Alternariaalternata <0.10 H635-KpV Stemphyliumherbarum <0.10 N972-FaV Maple/[place] <0.10 U/pJU896-SxQ [place], White <0.10 U/fCY999-TeH Elm, Luxembourger <0.10 U/jIK874-AtI [place] <0.10 U/pDL076-EcG Merlin, White <0.10 U/lVF472-VpB Maple LeafSycamore <0.10 U/xLW009-CpM [place] <0.10 U/bEQ642-NmY Ragweed, Short <0.10 U353-RwP [place] <0.10 W009- IgE Plantain,[place]ay[place] Islander <0.10 I469-KrU Thistle, Martiniquais <0.10 Z351-JgG Pigweed, Common <0.10 N456-CmW Sheep [place] <0.10 Y074-WgL Milk <0.10 I647-BvS Wheat <0.10 U/kTX191-DuU [place] <0.10 U/kTI105-PwK Peanut <0.10 U/sGJ949-OgX Soybean <0.10 U/dZX877-GfU Pork <0.10 U/pXA673-ZaN Beef <0.10 U/hDYB06-NyY Food Mix(Seafoods) Negative J881-WaZ Egg, Whole <0.10 U/cDX804-BjK Chocolate/[place] <0.10 07/21/2016 3:26 PM GLUCOSE 104.0 mg/dLSODIUM [...] Not Entered 10/05/2019 10/05/2019 999 Tdap 07/16/2015 [employer] SKB BOOSTRIX [id number] Intramuscula r Right Deltoid [...] 2018 11:18AM Spondylisthesis Jun 30 2018 2:01PM Payers Insurance Name Company Name Plan Name Plan Number Policy Number Sanjay cy Group Number Start Date Medicare Part B Medicare Of [place] [id number] N/A [facility] [id number] N/A [id number] 2013 Medicare Part A Medicare Part A [id number] Friday, 2013 [facility] [employer] [place] Luxem[place]ger Retriement [id number] N/A Medicare Part B Medicare Aleshia Escalante [id number] Friday, 2013 [place] [employer] [facility] [employer] [facility] Luxembourger Life Ins [id number] N/A Medicare Part A ZZZMedicare P A - Preventive [id number] N/A Medicare RHC Medicare RHC [id number] N/A Medicare Part A Medicare - Lab/Xray [id number] N/A History of Encounters Visit Date Visit Type Provider 06/29/2018 Office visit Chadd Lucio MD 04/20/2018 Office visit Jada Pulliam MENTAL HEALTH PROFESSIONAL 03/19/2018 Procedures Hermilo Bouman DO 03/12/2018 Procedures Hermilo Bouman DO 02/26/2018 Procedures Hermilo Bouman DO 01/03/2018 Office visit Katharina Murdock APR N 10/08/2017 Office visit Jada Pulliam MENTAL HEALTH PROFESSIONAL 10/06/2017 Office visit Jada Pulliam MENTAL HEALTH PROFESSIONAL 10/07/2016 Hospital Jessica Dhaliwal MD 08/12/2016 Office visit Jada Pulliam MENTAL HEALTH PROFESSIONAL 08/05/2016 Office visit Jada Walker MENTAL HEALTH PROFESSIONAL 07/21/2016 Office visit Jada Walker MENTAL HEALTH PROFESSIONAL 07/10/2016 [facility] Sage Green MD 07/09/2016 Office visit Valorie MCCLURE 07/09/2016 [facility] Jessica Dhaliwal MD 05/22/2016 Nurse visit Jada Walker MENTAL HEALTH PROFESSIONAL 04/13/2016 Office visit Katharina Murdock APR N 04/04/2016 Nurse visit Jada Walker MENTAL HEALTH PROFESSIONAL 03/26/2016 Office visit Jada Pulliam MENTAL HEALTH PROFESSIONAL 02/29/2016 Office visit Jada Walker MENTAL HEALTH PROFESSIONAL 01/09/2016 Office visit Jada Walker MENTAL HEALTH PROFESSIONAL 11/14/2015 Office visit Jada Walker MENTAL HEALTH PROFESSIONAL 07/16/2015 Nurse visit Jada Walker MENTAL HEALTH PROFESSIONAL 11/30/2014 Office visit Sharon Villanueva 10/18/2014 Office visit Jada Pulliam MENTAL HEALTH PROFESSIONAL 08/17/2014 Office visit Jaylene Rebolledo MD 06/28/2014 Office visit Jada Pulliam MENTAL HEALTH PROFESSIONAL 06/01/2014 Office visit Sharon Villanueva 04/28/2014 Nurse visit Jada Pulliam MENTAL HEALTH PROFESSIONAL 07/20/2013 Office visit Jada Pulliam MENTAL HEALTH PROFESSIONAL 07/05/2013 Nurse visit Jada Pulliam MENTAL HEALTH PROFESSIONAL 01/10/2013 Office visit Jada Pulliam MENTAL HEALTH PROFESSIONAL 12/29/2012 Nurse visit Jada Pulliam MENTAL HEALTH PROFESSIONAL 06/16/2012 Office visit Jada Pulliam MENTAL HEALTH PROFESSIONAL 05/04/2012 Office visit Jada Pulliam MENTAL HEALTH PROFESSIONAL 03/10/2012 Office visit Jada Pulliam MENTAL HEALTH PROFESSIONAL 03/04/2012 Office visit Jada Pulliam MENTAL HEALTH PROFESSIONAL 01/13/2012 Office visit Ezequiel Mahan MD 01/08/2012 Nurse visit Mikki Carrasco MD 12/16/2011 Voided Ezequiel Mahan MD 11/28/2011 Office visit Ezequiel Mahan MD 10/28/2011 Office visit Jada Heraclio MENTAL HEALTH PROFESSIONAL 08/14/2011 Office visit Ezequiel Mahan MD 08/07/2011 Nurse visit Ezequiel Mahan MD 06/03/2011 Office visit Jada Heraclio MENTAL HEALTH PROFESSIONAL 05/07/2011 Office visit Ezequiel Mahan MD 04/28/2011 [...]
--- OUTSIDE RECORDS SUMMARY | 2019-12-14 17:54 | XMS REPORT ---
Author Author Shandra Lucio Organization [facility] oup Address [address] [place] [phone] Care Team Providers Care Outside Sales Executive Name Role Phone Chadd Lucio PCP Jada Pulliam PreferredProvider Allergies and Adverse Reactions Name Reaction Notes ciprofloxacin migraine codeine sulfate Plan of Treatment Planned Activity Comments Planned Date Planned Time Plan/Goal Urine Culture, [place] Count 03/04/2016 12:00 AM lumbar pain 12/17/2015 [...] Reviewed 02/29/2016 12:00 AM Rocephin 1 gram [facility]#5327-4846-36 Reviewe d 03/27/2016 12:00 AM INJECT SPINE LUMBAR/SACRAL Reviewed 03/27/2016 12:00 AM URNLS DIP STICK/TABLET RGNT AUTO W/O KATHRIN ROSCOPY Reviewed 03/26/2016 12:00 AM Benadryl, Up to 50 Mg [facility]# 5779-9418-04 Reviewed 04/04/2016 12:00 AM IMMUNOTHERAPY ONE INJECTION Reviewed 10/29/2011 12:00 AM URINALYSIS AUTO W/O SCOPE Reviewed 10/28/2011 12:00 AM COMPLETE CBC W/AUTO DIFF WBC Reviewed 10/28/2011 12:00 AM COMPREHEN METABOLIC PANEL Reviewed 10/28/2011 12:00 AM URINE CULTURE/COLONY COUNT Reviewed 05/22/2016 12:00 AM ALLERGEN SPECIFIC IGE Reviewed 05/22/2016 12:00 AM Decadron, Per 1 Mg [place]# [address]-54 Re viewed 05/22/2016 12:00 AM Depo-Medrol 40mg [...] Reviewed 01/08/2012 12:00 AM Depo-Medrol 40 mg [facility]#5431513537 Reviewe d 09/08/2016 12:00 AM METABOLIC PANEL TOTAL CA Reviewed 09/08/2016 12:00 AM COMPLETE CBC W/AUTO DIFF WBC Reviewed 09/08/2016 12:00 AM RADIOLOGIC EXAM CHEST 2 VIEWS FRONTAL&LA TERAL Reviewed 04/13/2016 12:00 AM Depo-Medrol, Per 80 Mg [facility]#[address]-05 Reviewed 04/13/2016 12:00 AM Decadron, Per 1 Mg [facility]# [address]-72 Re viewed 04/13/2016 12:00 AM THER/PROPH/DIAG INJ [...] 01/10/2013 12:00 AM Decadron, Per 1 Mg [facility]# [address]-21 Re viewed 01/10/2013 12:00 AM Depo-Medrol, Per 80 Mg [facility]#1641-3438-12 Reviewed 07/05/2013 12:00 AM Prolia, 60 Mg Reviewed 07/20/2013 12:00 AM THER/PROPH/DIAG INJ SC/IM Reviewed 07/20/2013 12:00 AM Depo-Medrol, Per 80 Mg [facility]#7539-7701-42 Reviewed 07/20/2013 12:00 AM Decadron, Per 1 Mg [facility]# [address]-82 Re viewed 05/13/2010 12:00 AM COMPREHEN METABOLIC [...] Reviewed 10/24/2009 12:00 AM Kenalog 40 Mg [facility]#8203-6719-06 Review ed 12/26/2014 12:00 AM Prolia, 60 [...] CULT SET UP? YES 05/22/2016 3:30 PM W465-RjL D pteronyssinus <0. 10 U/bQG117-MoD D farinae <0.10 U/wOD904-YwR Cat Dander <0.10 O427-JtF Dog Dander <0.10 U/vPU395-CeO [place] Grass <0.10 U/lJR874-EuF Bluegrass,[place] <0.10 U/nVC822-EbB [place] Grass <0.10 U/lCH670-YdZ Cockroach,Uruguayan <0.10 G601-OaY Penicilliumchrysogen <0.10 V950-RtS Cladosporiumherbarum <0.10 H615-OkA Aspergillusfumigatus <0.10 Q042-OeN Mucor racemosus <0.10 C468-LfL Alternariaalternata <0.10 X979-PxO Stemphyliumherbarum <0.10 L399-IyD Maple/[place] <0.10 U/wMS236-MwO [place], White <0.10 U/pUN151-WdA Elm, Uruguayan <0.10 U/xSG300-IcU [place] <0.10 U/qRP141-GrA Merlin, White <0.10 U/pYR367-HhV Maple LeafSycamore <0.10 U/uGX631-HdJ White [place] <0.10 U/nKL164-DuI Ragweed, [place] <0.10 E396-FbN [place] <0.10 W009- IgE Plantain,Omani <0.10 S069-PmN Thistle, Slovenian <0.10 V056-GoS Pigweed, Common <0.10 R124-ZkL Sheep [place] <0.10 Y537-BmK Milk <0.10 V202-QxI Wheat <0.10 U/zBS594-MvR [place] <0.10 U/fWZ098-XwR Peanut <0.10 U/lLT194-MjT Soybean <0.10 U/gTH079-KvP Pork <0.10 U/aNG397-NlT Beef <0.10 U/mSSD82-BcF Food Mix(Seafoods) Negative Y800-GfD Egg, Whole <0.10 U/oNY164-IyL Chocolate/[place] <0.10 07/21/2016 3:26 PM GLUCOSE 104.0 mg/dLSODIUM [...] 11:18AM Lumbar radiculopathy Jun 29 2018 11:18AM Payers Insurance Name Company Name Plan Name Plan Number Policy Number Sanjay cy Group Number Start Date Medicare Part B Medicare Of [place] [id number] N/A [facility] [id number] N/A [facility] [id number] 2013 Medicare Part A Medicare Part A [id number] Friday, 2013 [employer] [place]ruguayan Retriement [id number] N/A Medicare Part B Medicare Of [place] [id number] Friday, 2013 [email or web address] [id number] N/A Medicare Part A ZZZMedicare P A - Preventive [id number] N/A Medicare RHC Medicare RHC [id number] N/A Medicare Part A Medicare - Lab/Xray [id number] N/A History of Encounters Visit Date Visit Type Provider 06/29/2018 Office visit Chadd Lucio MD 04/20/2018 Office visit Jada Heraclio TEXTILES SALES REPRESENTATIVE 03/19/2018 Procedures Hermilo Bouman DO 03/12/2018 Procedures Hermilo Bouman DO 02/26/2018 Procedures Hermilo Bouman DO 01/03/2018 Office visit Katharina Murdock APR N 10/08/2017 Office visit Jada Pulliam TEXTILES SALES REPRESENTATIVE 10/06/2017 Office visit Jada Pulliam TEXTILES SALES REPRESENTATIVE 10/07/2016 [facility] Jessica Dhaliwal MD 08/12/2016 Office visit Jada Pulliam TEXTILES SALES REPRESENTATIVE 08/05/2016 Office visit Jada Walker TEXTILES SALES REPRESENTATIVE 07/21/2016 Office visit Jada Pulliam TEXTILES SALES REPRESENTATIVE 07/10/2016 [facility] Sage Green MD 07/09/2016 Office visit Valorie MCCLURE 07/09/2016 [facility] Jessica Dhaliwal MD 05/22/2016 Nurse visit Jada Walker TEXTILES SALES REPRESENTATIVE 04/13/2016 Office visit Katharina Murdock APR N 04/04/2016 Nurse visit Jada Walker TEXTILES SALES REPRESENTATIVE 03/26/2016 Office visit Jada Walker TEXTILES SALES REPRESENTATIVE 02/29/2016 Office visit Jada Walker TEXTILES SALES REPRESENTATIVE 01/09/2016 Office visit Jada Walker TEXTILES SALES REPRESENTATIVE 11/14/2015 Office visit Jada Walker TEXTILES SALES REPRESENTATIVE 07/16/2015 Nurse visit Jada Walker TEXTILES SALES REPRESENTATIVE 11/30/2014 Office visit Sharon Villanueva 10/18/2014 Office visit Jada Walker TEXTILES SALES REPRESENTATIVE 08/17/2014 Office visit Jaylene Rebolledo MD 06/28/2014 Office visit Jada Walker TEXTILES SALES REPRESENTATIVE 06/01/2014 Office visit Shaorn Villanueva 04/28/2014 Nurse visit Jada Pulliam TEXTILES SALES REPRESENTATIVE 07/20/2013 Office visit Jada Pulliam TEXTILES SALES REPRESENTATIVE 07/05/2013 Nurse visit Jada Pulliam TEXTILES SALES REPRESENTATIVE 01/10/2013 Office visit Jada Pulliam TEXTILES SALES REPRESENTATIVE 12/29/2012 Nurse visit Jada Walker TEXTILES SALES REPRESENTATIVE 06/16/2012 Office visit Jada Walker TEXTILES SALES REPRESENTATIVE 05/04/2012 Office visit Jada Pulliam TEXTILES SALES REPRESENTATIVE 03/10/2012 Office visit Jada Pulliam TEXTILES SALES REPRESENTATIVE 03/04/2012 Office visit Jada Pulliam TEXTILES SALES REPRESENTATIVE 01/13/2012 Office visit Ezequiel Mahan MD 01/08/2012 Nurse visit Mikki Carrasco MD 12/16/2011 Voided Ezequiel Mahan MD 11/28/2011 Office visit Ezequiel Mahan MD 10/28/2011 Office visit Jada Pulliam TEXTILES SALES REPRESENTATIVE 08/14/2011 Office visit Ezequiel Mahan MD 08/07/2011 Nurse visit Ezequiel Mahan MD 06/03/2011 Office visit Jada Pulliam TEXTILES SALES REPRESENTATIVE 05/07/2011 Office visit Ezequiel Mahan MD 04/28/2011 Voided Ezequiel Mahan MD 11/18/2010 Office visit Braydon Ramirez DO 11/07/2010 Office visit Braydon Ramirez DO 10/15/2010 Office visit Braydon Ramirez DO 08/27/2010 Office visit Hillary WEST 05/16/2010 Office visit Braydon aRmirez DO 12/05/2009 Office visit Braydon Ramirez DO 11/07/2009 Office visit Braydon Ramirez DO 10/24/2009 Office visit Braydon Ramirez DO 08/16/2009 Office visit Braydon Ramirez DO 08/15/2009 Laboratory Braydon Ramirez DO 07/02/2009 Office visit Braydon Ramirez DO
--- OUTSIDE RECORDS SUMMARY | 2019-12-14 17:55 | XMS REPORT ---
Author Shandra Porter Organization [facility] Address [address] [place], [place] [phone] Care Team Providers Care Director Of Field Coordination Name Role Phone Jada Pulliam PCP Jada Pulliam PreferredProvider Allergies and Adverse Reactions Name Reaction Notes ciprofloxacin migraine codeine sulfate Plan of Treatment Planned Activity Comments Planned Date Planned Time Plan/Goal Urine Culture, [place] Count 03/04/2016 12:00 AM lumbar pain 12/17/2015 [...] ONE C APSULE BY MOUTH AT BEDTIME diclofenac sodium 75 mg oral tablet,delayed release (DR/EC) 2017 take 1 tablet (75 mg) by oral route 2 times per day for 30 days Estrace 0.01 % (0.1 mg/gram) vaginal cream 10/06/2017 INSERT ONE APPLICATORFUL VAGINALLY TWICE A WEEK Flonase Allergy Relief 50 mcg/actuation nasal spray,suspension spray 1 spray (50 mcg) in each nostril by intranasal route once daily Zyrtec-D 5-120 mg oral tablet extended release 12 hr 10/08/2017 take 1 tablet by oral route 2 times per day atorvastatin 40 mg oral tablet 02/24/2018 T KINDRA ONE TABLET BY MOUTH ONCE DAILY AT BEDTIME estradiol 0.01 % (0.1 mg/gram) vaginal cream 03/20/2018 INSERT ONE APPLICATORFUL VAGINALLY TWICE A WEEK gabapentin 300 mg oral capsule 04/20/2018 t kindra 1 capsule by oral route 3 times a day Name Start Date Expiration Date SIG [...] once daily at bedtime for 90 days gabapentin 100 mg oral capsule 10/06/2017 04/20/2018 t kindra 1 capsule daily am and noon change dosage to 300mg TID Problem List Description Status Onset Allergic rhinitis [...] HC BMI BSA BMI Percentile O2 Sat(%) 04/20/2018 1:19:00 PM 126 mmHg 72 mmHg [...] Reviewed 02/29/2016 12:00 AM Rocephin 1 gram [facility]#9926-7601-65 Reviewe d 03/27/2016 12:00 AM INJECT SPINE LUMBAR/SACRAL Reviewed 03/27/2016 12:00 AM URNLS DIP STICK/TABLET RGNT AUTO W/O KATHRIN ROSCOPY Reviewed 03/26/2016 12:00 AM Benadryl, Up to 50 Mg [facility]# 8953-3712-41 Reviewed 04/04/2016 12:00 AM IMMUNOTHERAPY ONE INJECTION Reviewed 10/29/2011 12:00 AM URINALYSIS AUTO W/O SCOPE Reviewed 10/28/2011 12:00 AM COMPLETE CBC W/AUTO DIFF WBC Reviewed 10/28/2011 12:00 AM COMPREHEN METABOLIC PANEL Reviewed 10/28/2011 12:00 AM URINE CULTURE/COLONY COUNT Reviewed 05/22/2016 12:00 AM ALLERGEN SPECIFIC IGE Reviewed 05/22/2016 12:00 AM Decadron, Per 1 Mg [facility]# [address]-20 Re viewed 05/22/2016 12:00 AM Depo-Medrol 40mg [...] Reviewed 01/08/2012 12:00 AM Depo-Medrol 40 mg [facility]#[id number] Reviewe d 09/08/2016 12:00 AM METABOLIC PANEL TOTAL CA Reviewed 09/08/2016 12:00 AM COMPLETE CBC W/AUTO DIFF WBC Reviewed 09/08/2016 12:00 AM RADIOLOGIC EXAM CHEST 2 VIEWS FRONTAL&LA TERAL Reviewed 04/13/2016 12:00 AM Depo-Medrol, Per 80 Mg [facility]#[address]-59 Reviewed 04/13/2016 12:00 AM Decadron, Per 1 Mg [facility]# [address]-30 Re viewed 04/13/2016 12:00 AM THER/PROPH/DIAG INJ [...] 12:00 AM Decadron, Per 1 Mg [facility]# [address]-02 Re viewed 01/10/2013 12:00 AM Depo-Medrol, Per 80 Mg [facility]#3313-6713-95 Reviewed 07/05/2013 12:00 AM Prolia, 60 Mg Reviewed 07/20/2013 12:00 AM THER/PROPH/DIAG INJ SC/IM Reviewed 07/20/2013 12:00 AM Depo-Medrol, Per 80 Mg [facility]#8205-6549-58 Reviewed 07/20/2013 12:00 AM Decadron, Per 1 Mg [facility]# [address]-42 Re viewed 05/13/2010 12:00 AM COMPREHEN METABOLIC [...] AM Kenalog 40 Mg Im-[facility]#1020-4613-65 Review ed 12/26/2014 12:00 AM Prolia, 60 [...] CULT SET UP? YES 05/22/2016 3:30 PM H578-ZdM D pteronyssinus <0. 10 U/xNO138-YwT D farinae <0.10 U/lXZ849-OeI Cat Dander <0.10 X586-FjU Dog Dander <0.10 U/bDR198-ZsE [place] Grass <0.10 U/kPW784-QuD Bluegrass,[place] <0.10 U/yYH111-TqN [place] Grass <0.10 U/pWJ452-VqI Cockroach,Yemeni <0.10 P958-XcG Penicilliumchrysogen <0.10 Q056-PmV Cladosporiumherbarum <0.10 L994-ScK Aspergillusfumigatus <0.10 M576-JkR Mucor racemosus <0.10 V290-HfP Alternariaalternata <0.10 S461-QvQ Stemphyliumherbarum <0.10 D256-LjR Maple/[place] <0.10 U/zXT984-EtU [place], White <0.10 U/gCU235-TqC Elm, Yemeni <0.10 U/dMJ796-FoS [place] <0.10 U/xZG501-FgJ Merlin, White <0.10 U/kSA196-AeB Maple LeafSycamore <0.10 U/cSY846-NdR [place] <0.10 U/mVV840-SjG Ragweed, Short <0.10 H824-HiB [place] <0.10 W009- IgE Plantain,Kittitian <0.10 M541-MvH Thistle, [place] <0.10 C112-DoF Pigweed, Common <0.10 D329-SvG Sheep [employer] <0.10 E946-FuK Milk <0.10 W906-KeF Wheat <0.10 U/zXV131-AbK [place] <0.10 U/zUU725-KaM Peanut <0.10 U/fNO483-MpJ Soybean <0.10 U/qNG606-GhK Pork <0.10 U/eZH939-UpJ Beef <0.10 U/kRBU07-SxP Food Mix(Seafoods) Negative K608-LdM Egg, Whole <0.10 U/tPO584-SmI Chocolate/[place] <0.10 07/21/2016 3:26 PM GLUCOSE 104.0 mg/dLSODIUM [...] 2018 1:21PM Neuropathy Apr 20 2018 1:21PM Payers Insurance Name Company Name Plan Name Plan Number Policy Number Sanjay cy Group Number Start Date Medicare RHC Medicare RHC [id number] N/A [facility] [id number] N/A Medicare Part A Medicare - Lab/Xray [id number] N/A BCBS [facility] [id number] July 05, 2013 Medicare Part A Medicare Part A [id number] Friday, July 05, 2013 [facility] [employer] Insurance De [place] Retriement [id number] N/A Medicare Part B Medicare Of [place] [id number] Friday, July 05, 2013 [place] [employer] Insurance [facility] [place]i [facility] [id number] N/A Medicare Part A ZZZMedicare P A - Preventive [id number] N/A History of Encounters Visit Date Visit Type Provider 04/20/2018 Office visit Jada Pulliam ANESTHESIA TECH 03/19/2018 Procedures Hermilo Gallego DO 03/12/2018 Procedures Hermilo Gallego DO 02/26/2018 Procedures Hermilo Gallego DO 01/03/2018 Office visit Katharina Murdock APR N 10/08/2017 Office visit Jada Pulliam ANESTHESIA TECH 10/06/2017 Office visit Jada Pulliam ANESTHESIA TECH 10/07/2016 [facility] Jessica Dhaliwal MD 08/12/2016 Office visit Jada Pulliam ANESTHESIA TECH 08/05/2016 Office visit Jada Walker ANESTHESIA TECH 07/21/2016 Office visit Jada Walker ANESTHESIA TECH 07/10/2016 Hospital Sage Green MD 07/09/2016 Office visit Valorei MCCLURE 07/09/2016 [facility] Jessica Dhaliwal MD 05/22/2016 Nurse visit Jada Walker ANESTHESIA TECH 04/13/2016 Office visit Katharina Murdock APR N 04/04/2016 Nurse visit Jada Walker ANESTHESIA TECH 03/26/2016 Office visit Jada Walker ANESTHESIA TECH 02/29/2016 Office visit Jada Walker ANESTHESIA TECH 01/09/2016 Office visit Jada Walker ANESTHESIA TECH 11/14/2015 Office visit Jada Walker ANESTHESIA TECH 07/16/2015 Nurse visit Jada Walker ANESTHESIA TECH 11/30/2014 Office visit Sharon Villanueva 10/18/2014 Office visit Jada Walker ANESTHESIA TECH 08/17/2014 Office visit Jaylene Rebolledo MD 06/28/2014 Office visit Jada Walker ANESTHESIA TECH 06/01/2014 Office visit Sharon Villanueva 04/28/2014 Nurse visit Jada Walker ANESTHESIA TECH 07/20/2013 Office visit Jada Walker ANESTHESIA TECH 07/05/2013 Nurse visit Jada Walker ANESTHESIA TECH 01/10/2013 Office visit Jada Walker ANESTHESIA TECH 12/29/2012 Nurse visit Jada Walker ANESTHESIA TECH 06/16/2012 Office visit Jada Walker ANESTHESIA TECH 05/04/2012 Office visit Jada Walker ANESTHESIA TECH 03/10/2012 Office visit Jada Walker ANESTHESIA TECH 03/04/2012 Office visit Jada Walker ANESTHESIA TECH 01/13/2012 Office visit Ezequiel Mahan MD 01/08/2012 Nurse visit Mikki Carrasco MD 12/16/2011 Voided Ezequiel Mahan MD 11/28/2011 Office visit Ezequiel Mahan MD 10/28/2011 Office visit Jada Pulliam ANESTHESIA TECH 08/14/2011 Office visit Ezequiel Mahan MD 08/07/2011 Nurse visit Ezequiel Mahan MD 06/03/2011 Office visit Jada Pulliam ANESTHESIA TECH 05/07/2011 Office visit Ezequiel Mahan MD 04/28/2011 [...]
--- OUTSIDE RECORDS SUMMARY | 2019-12-14 17:56 | XMS REPORT ---
Author Shandra Porter Organization [facility] Address [address] [place], [place] [id number] Care Team Providers Care Spinner Tender Name Role Phone Jada Pulliam PCP Jada Pulliam PreferredProvider Allergies and Adverse Reactions Name Reaction Notes ciprofloxacin migraine codeine sulfate Plan of Treatment Planned Activity Comments Planned Date Planned Time Plan/Goal Urine Culture, [place] Count 03/04/2016 12:00 AM lumbar pain 12/17/2015 [...] 300 mg oral capsule 01/09/2016 01/09/2016 t ikndra 1 capsule (300 mg) by oral route [...] Rocephin 1 gram [facility]#9139-8962-25 Reviewe d 03/27/2016 12:00 AM INJECT SPINE LUMBAR/SACRAL Reviewed 03/27/2016 12:00 AM URNLS DIP STICK/TABLET RGNT AUTO W/O KATHRIN ROSCOPY Reviewed 03/26/2016 12:00 AM Benadryl, Up to 50 Mg [facility]# 9113-0908-30 Reviewed 04/04/2016 12:00 AM IMMUNOTHERAPY ONE INJECTION Reviewed 10/29/2011 12:00 AM URINALYSIS AUTO W/O SCOPE Reviewed 10/28/2011 12:00 AM COMPLETE CBC W/AUTO DIFF WBC Reviewed 10/28/2011 12:00 AM COMPREHEN METABOLIC PANEL Reviewed 10/28/2011 12:00 AM URINE CULTURE/COLONY COUNT Reviewed 05/22/2016 12:00 AM ALLERGEN SPECIFIC IGE Reviewed 05/22/2016 12:00 AM Decadron, Per 1 Mg [facility]# [address]-52 Re viewed 05/22/2016 12:00 AM Depo-Medrol 40mg [...] Reviewed 01/08/2012 12:00 AM Depo-Medrol 40 mg [facility]#[id number] Reviewe d 09/08/2016 12:00 AM METABOLIC PANEL TOTAL CA Reviewed 09/08/2016 12:00 AM COMPLETE CBC W/AUTO DIFF WBC Reviewed 09/08/2016 12:00 AM RADIOLOGIC EXAM CHEST 2 VIEWS FRONTAL&LA TERAL Reviewed 04/13/2016 12:00 AM Depo-Medrol, Per 80 Mg [facility]#[address]-46 Reviewed 04/13/2016 12:00 AM Decadron, Per 1 Mg [facility]# [address]-11 Re viewed 04/13/2016 12:00 AM THER/PROPH/DIAG INJ [...] 12:00 AM Decadron, Per 1 Mg [facility]# [address]-63 Re viewed 01/10/2013 12:00 AM Depo-Medrol, Per 80 Mg [facility]#5594-7420-37 Reviewed 07/05/2013 12:00 AM Prolia, 60 Mg Reviewed 07/20/2013 12:00 AM THER/PROPH/DIAG INJ SC/IM Reviewed 07/20/2013 12:00 AM Depo-Medrol, Per 80 Mg [facility]#8468-5454-26 Reviewed 07/20/2013 12:00 AM Decadron, Per 1 Mg [facility]# [address]-68 Re viewed 05/13/2010 12:00 AM COMPREHEN METABOLIC [...] Reviewed 10/24/2009 12:00 AM Kenalog 40 Mg [facility]#6753-3917-25 Review ed 12/26/2014 12:00 AM Prolia, 60 [...] CULT SET UP? YES 05/22/2016 3:30 PM R852-NxE D pteronyssinus <0. 10 U/xMS972-MxN D farinae <0.10 U/fSF608-UqD Cat Dander <0.10 J148-PwV Dog Dander <0.10 U/hAW245-TtS [place] Grass <0.10 U/sCF084-DsV Bluegrass,[place] <0.10 U/qPV880-YpH [place] Grass <0.10 U/sEP695-DaV Cockroach,Belarusian <0.10 R514-WzO Penicilliumchrysogen <0.10 Q371-RaD Cladosporiumherbarum <0.10 J150-OqS Aspergillusfumigatus <0.10 E484-ZxI Mucor racemosus <0.10 R822-OgJ Alternariaalternata <0.10 S090-VpB Stemphyliumherbarum <0.10 D971-NdF Maple/[place] <0.10 U/oJE486-ZzV [place], White <0.10 U/sOJ927-RoI Elm, Belarusian <0.10 U/uOW342-PoH [place] <0.10 U/sFM097-WxK Merlin, White <0.10 U/eQS616-EnN Maple LeafSycamore <0.10 U/sHI151-OyS [place] <0.10 U/sXM321-CwM Ragweed, Short <0.10 Q608-YvV [place] <0.10 W009- IgE Plantain,Cook Islander <0.10 R898-XgW Thistle, Northern Irish <0.10 Q976-DiO Pigweed, Common <0.10 P553-TtG Sheep [place] <0.10 E190-NjB Milk <0.10 X138-MgI Wheat <0.10 U/wAW346-YjC [place] <0.10 U/xYV004-CgI Peanut <0.10 U/wUI810-WkM Soybean <0.10 U/eIA987-WuV Pork <0.10 U/jHJ833-CkM Beef <0.10 U/vMMO80-NnY Food Mix(Seafoods) Negative V392-MlV Egg, Whole <0.10 U/mQO668-LqD Chocolate/[place] <0.10 07/21/2016 3:26 PM GLUCOSE 104.0 mg/dLSODIUM [...] Number Start Date Medicare RHC Medicare RHC [id number] N/A [facility] [id number] N/A Medicare Part A Medicare - Lab/Xray [id number] N/A BCBS Bc[facility] [id number] July 05, 2013 Medicare Part A Medicare Part A [id number] Friday, July 05, 2013 [facility] [employer] [place] Retriement [id number] N/A Medicare Part B Medicare Of [place] [id number] Friday, July 05, 2013 [place] [employer] [facility] [place] [facility] [id number] N/A Medicare Part A ZZZMedicare P A - Preventive [id number] N/A History of Encounters Visit Date Visit Type Provider 04/20/2018 Office visit Jada Pulliam SPECIALTY COOK 03/19/2018 Procedures Hermilo Gallego DO 03/12/2018 Procedures Hermilo Gallego DO 02/26/2018 Procedures Hermilo Gallego DO 01/03/2018 Office visit Katharina Murdock APR N 10/08/2017 Office visit Jada Pulliam SPECIALTY COOK 10/06/2017 Office visit Jada Pulliam SPECIALTY COOK 10/07/2016 [facility] Jessica Dhaliwal MD 08/12/2016 Office visit Jada Pulliam SPECIALTY COOK 08/05/2016 Office visit Jada Walker SPECIALTY COOK 07/21/2016 Office visit Jada Walker SPECIALTY COOK 07/10/2016 Hospital Sage Green MD 07/09/2016 Office visit Valorie MCCLURE 07/09/2016 [facility] Jessica Dhaliwal MD 05/22/2016 Nurse visit Jada Walker SPECIALTY COOK 04/13/2016 Office visit Katharina Murdock APR N 04/04/2016 Nurse visit Jada Walker SPECIALTY COOK 03/26/2016 Office visit Jada Walker SPECIALTY COOK 02/29/2016 Office visit Jada Walker SPECIALTY COOK 01/09/2016 Office visit Jada Walker SPECIALTY COOK 11/14/2015 Office visit Jada Walker SPECIALTY COOK 07/16/2015 Nurse visit Jada Walker SPECIALTY COOK 11/30/2014 Office visit Sharon Villanueva 10/18/2014 Office visit Jada Walker SPECIALTY COOK 08/17/2014 Office visit Jaylene Rebolledo MD 06/28/2014 Office visit Jada Walker SPECIALTY COOK 06/01/2014 Office visit Sharon Villanueva 04/28/2014 Nurse visit Jada Walker SPECIALTY COOK 07/20/2013 Office visit Jada Walker SPECIALTY COOK 07/05/2013 Nurse visit Jada Walker SPECIALTY COOK 01/10/2013 Office visit Jada Walker SPECIALTY COOK 12/29/2012 Nurse visit Jada Walker SPECIALTY COOK 06/16/2012 Office visit Jada Walker SPECIALTY COOK 05/04/2012 Office visit Jada Walker SPECIALTY COOK 03/10/2012 Office visit Jada Walker SPECIALTY COOK 03/04/2012 Office visit Jaad Walker SPECIALTY COOK 01/13/2012 Office visit Ezequiel Mahan MD 01/08/2012 Nurse visit Mikki Carrasco MD 12/16/2011 Voided Ezequiel Mahan MD 11/28/2011 Office visit Ezequiel Mahan MD 10/28/2011 Office visit Jada Pulliam SPECIALTY COOK 08/14/2011 Office visit Ezequiel Mahan MD 08/07/2011 Nurse visit Ezequiel Mahan MD 06/03/2011 Office visit Jada Pulliam SPECIALTY COOK 05/07/2011 Office visit Ezequiel Mahan MD 04/28/2011 [...]
--- OUTSIDE RECORDS SUMMARY | 2019-12-14 17:57 | XMS REPORT ---
Author Shandra Mata Organization [facility] Address [address] [place], [place] [id number] Care Team Providers Care University Administrator Name Role Phone Hermilo Gallego PCP Jada Pulliam PreferredProvider Allergies and Adverse Reactions Name Reaction Notes ciprofloxacin migraine codeine sulfate Plan of Treatment Planned Activity Comments Planned Date Planned Time Plan/Goal Urine Culture, [place] Count 03/04/2016 12:00 AM lumbar pain 12/17/2015 [...] WEEK gabapentin 100 mg oral capsule 10/06/2017 take 1 cap eliane daily am and noon gabapentin 300 mg oral capsule 10/06/2017 TAKE ONE C APSULE BY MOUTH AT BEDTIME Flonase Allergy Relief 50 mcg/actuation nasal spray,suspension [...] once daily at bedtime for 90 days Problem List Description Status Onset Allergic rhinitis [...] HC BMI BSA BMI Percentile O2 Sat(%) 03/19/2018 1:36:00 PM 129 mmHg 78 mmHg [...] 02/29/2016 12:00 AM Rocephin 1 gram [facility]#2991-7389-59 Reviewe d 03/27/2016 12:00 AM INJECT SPINE LUMBAR/SACRAL Reviewed 03/27/2016 12:00 AM URNLS DIP STICK/TABLET RGNT AUTO W/O KATHRIN ROSCOPY Reviewed 03/26/2016 12:00 AM Benadryl, Up to 50 Mg [facility]# 0213-6105-65 Reviewed 04/04/2016 12:00 AM IMMUNOTHERAPY ONE INJECTION Reviewed 10/29/2011 12:00 AM URINALYSIS AUTO W/O SCOPE Reviewed 10/28/2011 12:00 AM COMPLETE CBC W/AUTO DIFF WBC Reviewed 10/28/2011 12:00 AM COMPREHEN METABOLIC PANEL Reviewed 10/28/2011 12:00 AM URINE CULTURE/COLONY COUNT Reviewed 05/22/2016 12:00 AM ALLERGEN SPECIFIC IGE Reviewed 05/22/2016 12:00 AM Decadron, Per 1 Mg [facility]# [address]-51 Re viewed 05/22/2016 12:00 AM Depo-Medrol 40mg [...] 01/08/2012 12:00 AM Depo-Medrol 40 mg [facility]#[id number] Reviewe d 09/08/2016 12:00 AM METABOLIC PANEL TOTAL CA Reviewed 09/08/2016 12:00 AM COMPLETE CBC W/AUTO DIFF WBC Reviewed 09/08/2016 12:00 AM RADIOLOGIC EXAM CHEST 2 VIEWS FRONTAL&LA TERAL Reviewed 04/13/2016 12:00 AM Depo-Medrol, Per 80 Mg [facility]#[address]-88 Reviewed 04/13/2016 12:00 AM Decadron, Per 1 Mg [facility]# [address]-69 Re viewed 04/13/2016 12:00 AM THER/PROPH/DIAG INJ [...] 12:00 AM Decadron, Per 1 Mg [facility]# [address]-72 Re viewed 01/10/2013 12:00 AM Depo-Medrol, Per 80 Mg [facility]#0973-8534-63 Reviewed 07/05/2013 12:00 AM Prolia, 60 Mg Reviewed 07/20/2013 12:00 AM THER/PROPH/DIAG INJ SC/IM Reviewed 07/20/2013 12:00 AM Depo-Medrol, Per 80 Mg [facility]#7389-2991-60 Reviewed 07/20/2013 12:00 AM Decadron, Per 1 Mg [facility]# [address]-86 Re viewed 05/13/2010 12:00 AM COMPREHEN METABOLIC [...] AM Kenalog 40 Mg Im-[facility]#5807-9396-79 Review ed 12/26/2014 12:00 AM Prolia, 60 [...] CULT SET UP? YES 05/22/2016 3:30 PM B714-AmL D pteronyssinus <0. 10 U/tUI691-PlJ D farinae <0.10 U/qIC479-XsO Cat Dander <0.10 B558-NcR Dog Dander <0.10 U/gYK373-KmW [place] Grass <0.10 U/cOX113-TmL Bluegrass,[place] <0.10 U/cIL000-GxT [place] Grass <0.10 U/kCC064-WfH Cockroach,Slovenian <0.10 Y824-IsK Penicilliumchrysogen <0.10 P681-TyC Cladosporiumherbarum <0.10 H345-IzM Aspergillusfumigatus <0.10 N282-YjV Mucor racemosus <0.10 P461-LiY Alternariaalternata <0.10 W346-VsF Stemphyliumherbarum <0.10 R613-CrZ Maple/[place] <0.10 U/yCI019-XwQ [place], White <0.10 U/eKC829-CiH Elm, Slovenian <0.10 U/mUG761-VxT [place] <0.10 U/xUI123-XtJ Merlin, White <0.10 U/bIQ870-GrA Maple LeafSycamore <0.10 U/eOK178-CvL [place] <0.10 U/zSB279-NkA Ragweed, Short <0.10 D615-GsX [place] <0.10 W009- IgE Plantain,Kenyan <0.10 W482-YpP Thistle, [place] Zealander <0.10 X859-OsT Pigweed, Common <0.10 T068-DsB Sheep [place] <0.10 Y716-IlC Milk <0.10 N431-CfH Wheat <0.10 U/eRE760-WiU [place] <0.10 U/hLU614-TiO Peanut <0.10 U/pYM173-ApM Soybean <0.10 U/eJP334-SqB Pork <0.10 U/xFM494-UjI Beef <0.10 U/bPTR14-QwF Food Mix(Seafoods) Negative Y051-AgM Egg, Whole <0.10 U/gPH752-GpE Chocolate/[place] <0.10 07/21/2016 3:26 PM GLUCOSE 104.0 mg/dLSODIUM [...] Not Entered 10/05/2019 10/05/2019 999 Tdap 07/16/2015 [employer] SK[employer] BOOSTRIX [id number] Intramuscula r Right Deltoid [...] mammogram for breast cancer Aug 05 2 016 8:30AM Primary osteoarthritis of both knees [...] 9:58AM Seborrheic keratosis Feb 26 2018 9:22AM Payers Insurance Name Company Name Plan Name Plan Number Policy Number Sanjay cy Group Number Start Date Medicare RHC Medicare RHC [id number] N/A [facility] [id number] N/A Medicare Part A Medicare - Lab/Xray [id number] N/A [id number] July 05, 2013 Medicare Part A Medicare Part A [id number] Friday, July 05, 2013 [facility] Message [employer] Insurance Ri [place] Retriement [id number] N/A Medicare Part B Medicare Of [place] [id number] Friday, July 05, [address] [facility] [place]ian Life Ins [id number] N/A Medicare Part A ZZZMedicare P A - Preventive [id number] N/A History of Encounters Visit Date Visit Type Provider 03/19/2018 Procedures Hermilo Gallego DO 03/12/2018 Procedures Hermilo Gallego DO 02/26/2018 Procedures Hermilo Gallego DO 01/03/2018 Office visit Katharina Murdock APR N 10/08/2017 Office visit Jada Pulliam BACK MAKER 10/06/2017 Office visit Jada Pulliam BACK MAKER 10/07/2016 Hospital Jessica Dhaliwal MD 08/12/2016 Office visit Jada Pulliam BACK MAKER 08/05/2016 Office visit Jada Pulliam BACK MAKER 07/21/2016 Office visit Jada Pulliam BACK MAKER 07/10/2016 [facility] Sage Green MD 07/09/2016 Office visit Valorie MCCLURE 07/09/2016 [facility] Jessica Dhaliwal MD 05/22/2016 Nurse visit Jada Pulliam BACK MAKER 04/13/2016 Office visit Katharina Murdock APR N 04/04/2016 Nurse visit Jada Pulliam BACK MAKER 03/26/2016 Office visit Jada Pulliam BACK MAKER 02/29/2016 Office visit Jada Pulliam BACK MAKER 01/09/2016 Office visit Jada Pulliam BACK MAKER 11/14/2015 Office visit Jada Walker BACK MAKER 07/16/2015 Nurse visit Jada Pulliam BACK MAKER 11/30/2014 Office visit Sharon Villanueva 10/18/2014 Office visit Jada Pulliam BACK MAKER 08/17/2014 Office visit Jaylene Rebolledo MD 06/28/2014 Office visit Jada Pulliam BACK MAKER 06/01/2014 Office visit Sharon Villanueva 04/28/2014 Nurse visit Jada Pulliam BACK MAKER 07/20/2013 Office visit Jada Pulliam BACK MAKER 07/05/2013 Nurse visit Jada Pulliam BACK MAKER 01/10/2013 Office visit Jada Pulliam BACK MAKER 12/29/2012 Nurse visit Jada Pulliam BACK MAKER 06/16/2012 Office visit Jada Pulliam BACK MAKER 05/04/2012 Office visit Jada Pulliam BACK MAKER 03/10/2012 Office visit Jada Pulliam BACK MAKER 03/04/2012 Office visit Jada Pulliam BACK MAKER 01/13/2012 Office visit Ezequiel Mahan MD 01/08/2012 Nurse visit Mikki Carrasco MD 12/16/2011 Voided Ezequiel Mahan MD 11/28/2011 Office visit Ezequiel Mahan MD 10/28/2011 Office visit Jada Pulliam BACK MAKER 08/14/2011 Office visit Ezequiel Mahan MD 08/07/2011 Nurse visit Ezequiel Mahan MD 06/03/2011 Office visit Jada Pulliam BACK MAKER 05/07/2011 Office visit Ezequiel Mahan MD 04/28/2011 [...]
--- OUTSIDE RECORDS SUMMARY | 2019-12-14 17:57 | XMS REPORT ---
Author Author Shandra Bustillos Organization [facility] Address [address] [place] [id number] Care Team Providers Care Squad Boss Name Role Phone Sharon Bustillos PCP Allergies and Adverse Reactions Name Reaction Notes ciprofloxacin migraine codeine sulfate Plan of Treatment Planned Activity Comments Planned Date Planned Time Plan/Goal MAMMOGRAM BOTH BREASTS 06/18/2015 12:00 AM Medications Active Name Start Date Estimated Completion Date SIG Co mments Calcium 600 + D(3) 600 mg(1,500mg) -400 unit oral tablet take 2 tablets by oral route daily Aspir-81 81 mg oral tablet,delayed release (DR/EC) take 1 tablet (81 mg) by oral route once daily Fish Oil 1,000 mg oral capsule take 1 cap eliane by oral route daily gabapentin 100 mg oral capsule 10/18/2014 t kindra 1 capsule BID, morning, mid day Lortab 7.5-325 7.5-325 mg oral tablet 10/18/2014 take 1 tablet by oral route every 6 hours as needed for pain Estrace 0.01 % (0.1 mg/gram) vaginal cream 11/08/2014 apply 1 applicatorful by vaginal route twice a week Neurontin 300 mg oral capsule 11/10/2014 take 1 caps ule at HS gabapentin 100 mg oral capsule 01/24/2015 T KINDRA ONE CAPSULE BY MOUTH TWICE DAILY, IN THE MORNING AND MID-DAY gabapentin 300 mg oral capsule 02/27/2015 TAKE ONE C APSULE BY MOUTH AT BEDTIME Retin-A 0.025 % topical cream 06/18/2015 ap ply to the affected area(s) by topical route once daily at bedtime Name Start Date Expiration Date SIG Comments [...] oral route once daily for 4 days Lipitor 40 mg oral tablet 10/18/2014 04/16/2015 take 1 tablet (40 mg) by oral route once daily at bedtime for 30 days Leighann-D 12 Hour 60-120 mg oral tablet extended release 12 hr 04/17/2015 06/16/2015 take 1 tablet by oral route 2 times per day for 30 day s Discontinued Name Start Date Discontinued Date SIG [...] by vaginal route three times a week Leighann-D 24 Hour 180-240 mg oral tablet extended release 24 hr 02/08/2015 04/17/2015 take 1 tablet by oral route once daily o n an empty stomach with a glass of water for 30 days Problem List Description Status Onset Allergic Rhinitis Active Arthritis unspecified Active Hyperlipidemia Active Insomnia, unspecified Active lumbar back pain Active Menopausal Syndrome Active Obesity Active Osteopenia Active Restless Legs Active Lumbar spinal stenosis Active 06/28/2014 Actinic keratoses Active 11/30/2014 Solar lentigo Active 11/30/2014 Seborrheic keratosis Active 11/30/2014 Vital Signs Date Time BP-Sys(mm[Hg] BP-Rekha(mm[Hg]) HR(bpm) RR(rpm) Temp WT HT HC BMI BSA BMI Percentile O2 Sat(%) 10/18/2014 11:18:00 AM 128 mmHg 86 mmHg 70 bpm 18 rpm 97.7 F 209.375 lbs 68 in 31.84 kg/m2 2.13 m2 98 % 08/17/2014 2:11:00 PM 154 mmHg 77 mmHg 64 bpm 98.2 F 215.5 lbs 68 in 32.7663 kg/m 2.1656 m 06/28/2014 9:44:00 AM 134 mmHg 72 mmHg 74 bpm 18 rpm 98.2 F 223.25 lbs 68 i n 33.94 kg/m2 2.20 m2 96 % 07/20/2013 10:31:00 AM 132 mmHg 68 mmHg 71 bpm 18 rpm 97.4 F 231 lbs 68 in 35.1231 kg/m 2.2421 m 96 % 01/10/2013 1:33:00 PM 132 mmHg 68 mmHg 66 bpm 18 rpm 97.9 F 231.125 lbs 68 i n 35.14 kg/m2 2.24 m2 06/16/2012 2:03:00 PM 128 mmHg 72 mmHg 68 bpm 18 rpm 98.8 F 229.25 lbs 68 i n 34.857 kg/m 2.2336 m 05/04/2012 4:40:00 PM 134 mmHg 68 mmHg 66 bpm 18 rpm 98.9 F 236.375 lbs 68 in 35.94 kg/m2 2.27 m2 03/10/2012 11:12:00 AM 128 mmHg 64 mmHg 66 bpm 18 rpm 226 lbs 68 in 34.3628 kg/m 2.2177 m 03/04/2012 2:59:00 PM 134 mmHg 68 mmHg 66 bpm 18 rpm 98 F 229.25 lbs 68 in 34.86 kg/m2 2.23 m2 01/13/2012 9:08:00 AM 140 mmHg 90 mmHg [...] rpm 98.4 F 222.25 lbs 68 in 33.79 kg/m2 2.20 m2 94 % 11/07/2010 1:41:00 PM 130 mmHg 88 mmHg 66 bpm 18 rpm 98.8 F 225 lbs 68 in 34.2108 kg/m 2.2128 m 95 % 10/15/2010 4:06:00 PM 140 mmHg 90 mmHg 67 bpm 18 rpm 98.7 F 223.375 lbs 68 in 33.96 kg/m2 2.20 m2 96 % 08/27/2010 8:15:00 AM 128 mmHg 78 mmHg 64 bpm 16 rpm 96.8 F 225.5 lbs 05/16/2010 4:17:00 PM 150 mmHg 88 mmHg 88 bpm 16 rpm 98.3 F 231 lbs 68 in 35.12 kg/m2 2.24 m2 97 % 12/05/2009 4:39:00 PM 140 mmHg 100 mmHg 83 bpm 18 rpm 98.4 F 228.125 lbs 68 in 34.6859 kg/m 2.2281 m 98 % 11/07/2009 2:02:00 PM 120 mmHg 86 mmHg 77 bpm 18 rpm 98.8 F 230 lbs 68 in 34.97 kg/m2 2.24 m2 99 % 10/24/2009 3:58:00 PM 110 mmHg 80 mmHg 80 bpm 18 rpm 97.6 F 229 lbs 68 in 34.819 kg/m 2.2324 m 95 % Social History Name Description Comments [...] 06/03/2011 12:00 AM URINE CULTURE/COLONY COUNT Reviewed 08/07/2011 12:00 AM THER/PROPH/DIAG INJ SC/IM Reviewed 08/07/2011 12:00 AM Solu-Medrol 125 Mg Reviewed 10/29/2011 12:00 AM URINALYSIS AUTO W/O SCOPE Reviewed 10/28/2011 12:00 AM COMPLETE CBC W/AUTO DIFF WBC Returned 10/28/2011 12:00 AM COMPREHEN METABOLIC PANEL Returned 10/28/2011 12:00 AM URINE CULTURE/COLONY COUNT Returned 01/08/2012 12:00 AM THER/PROPH/DIAG INJ SC/IM Reviewed 01/08/2012 12:00 AM Depo-Medrol 40 mg [facility]#[id number] Reviewe d 03/12/2012 12:00 AM URINALYSIS AUTO W/O SCOPE Reviewed 03/10/2012 12:00 AM URINE CULTURE/COLONY COUNT Returned 05/04/2012 12:00 AM COMPLETE CBC W/AUTO DIFF WBC Returned 05/04/2012 12:00 AM COMPREHEN METABOLIC PANEL Returned 05/04/2012 12:00 AM LIPID PANEL Returned 05/04/2012 12:00 AM GLYCOSYLATED HEMOGLOBIN TEST Returned 05/04/2012 12:00 AM RBC SED RATE NONAUTOMATED Returned 06/16/2012 12:00 AM X-RAY EXAM OF FOOT Returned 12/01/2012 12:00 AM COMPREHEN METABOLIC PANEL Returned 12/29/2012 12:00 AM Prolia, 60 Mg Reviewed 12/29/2012 12:00 AM THER/PROPH/DIAG INJ SC/IM Reviewed 01/10/2013 12:00 AM THER/PROPH/DIAG INJ SC/IM Reviewed 01/10/2013 12:00 AM Decadron, Per 1 Mg [facility]# [address]-24 Re viewed 01/10/2013 12:00 AM Depo-Medrol, Per 80 Mg [facility]#1118-4219-26 Reviewed 07/05/2013 12:00 AM Prolia, 60 Mg Reviewed 07/20/2013 12:00 AM THER/PROPH/DIAG INJ SC/IM Reviewed 07/20/2013 12:00 AM Depo-Medrol, Per 80 Mg [facility]#2050-1443-79 Reviewed 07/20/2013 12:00 AM Decadron, Per 1 Mg [facility]# [address]-30 Re viewed 05/13/2010 12:00 AM COMPREHEN METABOLIC [...] AM COMPLETE CBC W/AUTO DIFF WBC Returned 06/28/2014 12:00 AM COMPREHEN METABOLIC PANEL Returned 06/28/2014 12:00 AM LIPID PANEL Returned 10/24/2009 12:00 AM THER/PROPH/DIAG INJ SC/IM Reviewed 10/24/2009 12:00 AM Kenalog 40 Mg [facility]#7168-1055-27 Review ed 12/26/2014 12:00 AM Prolia, 60 Mg Reviewed 11/07/2009 12:00 AM CHEST X-RAY 2VW FRONTAL&LATL Reviewed Results Summary Data and Description Results 03/31/2008 12:00 AM Colonoscopy-Women [...] TRIGLYCERIDES 245.0 mg/dLCHO LESTEROL 189.0 mg/dLHDL 37.0 mg/dLLDL (CALC) 103.0 mg/dLGLYCOHEMOGLOBIN A1C 6.10 %GLUCOSE 106.0 mg/dLSODIUM 141.0 mmol/LPOTASSIUM 4.30 mmol/LCHLORIDE 107.0 mmol/LCO2 23.0 mmol/LBUN 20.0 mg/dLCREATININE 1.0 mg/dLSGOT/AST 26.0 IU/LSGPT/ALT 42.0 IU/LALK PHOS 70.0 IU/LTOTAL PROTEIN 6.90 g/dLALBUMIN 4.20 g/dLTOTAL BILI 0.70 mg/dLCALCIUM 9.60 mg/dLeGFR 56 07/02/2010 12:00 AM Mammogram -Women over 40 Ord ered 06/03/2011 1:00 PM COLOR YELLOW APPEARANCE HAZY SPEC GRAV 1.030 pH 6.0 PROTEIN NEGATIVE GLUCOSE 500 KETONE NEGATIVE BILIRUBIN NEGATIVE BLOOD TRACE NITRITE POSITIVE LEUK SCREEN TRACE CASTS/LPF NEGATIVE CRYSTALS NEGATIVE MUCOUS THRDS FEW BACTERIA 2++ EPITH CELLS FEW SQUAMOUS TRICHOMONAS NEGATIVE YEAST NEGATIVE 10/28/2011 4:55 PM GLUCOSE 90.0 mg/dLSODIUM 141 .0 mmol/LPOTASSIUM 3.90 mmol/LCHLORIDE 107.0 mmol/LCO2 22.0 mmol/LBUN 13.0 mg/dLCREATININE 0.90 mg/dLSGOT/AST 28.0 IU/LSGPT/ALT 35.0 IU/LALK PHOS 68.0 IU/LTOTAL PROTEIN 7.10 g/dLALBUMIN 4.60 g/dLTOTAL BILI 0.60 mg/dLCALCIUM 9.60 mg/dLeGFR >60 mL/min/1.73 m2WBC 5.4 RBC 5.02 HGB 15.10 g/dLHCT 45.20 %MCV 90.0 fLMCH 30.10 pgMCHC 33.40 g/dLRDW CV 13.10 %MPV 11.40 fLPLT 231 %NEUT 39.20 %%LYMP 48.30 %%MONO 9.60 %%EOS 2.90 %%BASO 0.0 %#NEUT 2.13 #LYMP 2.62 #MONO 0.52 #EOS 0.16 #BASO 0.00 05/05/2012 9:18 AM WBC 15.8 RBC 4.91 HGB 14.80 g/dLHCT 45.20 %MCV 92.0 fLMCH 30.10 pgMCHC 32.70 g/dLRDW CV 13.40 %MPV 10.40 fLPLT 336 %NEUT 82.50 %%LYMP 12.60 %%MONO 4.80 %%EOS 0.0 %%BASO 0.10 %#NEUT 13.02 #LYMP 1.99 #MONO 0.76 #EOS 0.00 #BASO 0.02 GLUCOSE 138.0 mg/dLSODIUM 141.0 mmol/LPOTASSIUM 4.20 mmol/LCHLORIDE 107.0 mmol/LCO2 22.0 mmol/LBUN 23.0 mg/dLCREATININE 1.0 mg/dLSGOT/AST 16.0 IU/LSGPT/ALT 32.0 IU/LALK PHOS 84.0 IU/LTOTAL PROTEIN 7.30 g/dLALBUMIN 4.60 g/dLTOTAL BILI 0.40 mg/dLCALCIUM 9.60 mg/dLeGFR 56 TRIGLYCERIDES 165.0 mg/dLCHOLESTEROL 215.0 mg/dLHDL 47.0 mg/dLLDL (CALC) 135.0 mg/dLSEDRATE 10.0 mm/hrGLYCOHEMOGLOBIN A1C 6.30 % 12/02/2012 3:02 PM GLUCOSE 97.0 mg/dLSODIUM 143 .0 mmol/LPOTASSIUM 3.80 mmol/LCHLORIDE 107.0 mmol/LCO2 26.0 mmol/LBUN 17.0 mg/dLCREATININE 1.30 mg/dLSGOT/AST 24.0 IU/LSGPT/ALT 31.0 IU/LALK PHOS 71.0 IU/LTOTAL PROTEIN 7.30 g/dLALBUMIN 4.10 g/dLTOTAL BILI 0.40 mg/dLCALCIUM 9.60 mg/dLeGFR 41 06/28/2014 11:30 AM WBC 7.2 RBC 4.93 HGB 15.10 g /dLHCT 44.0 %MCV 89.0 fLMCH 30.60 pgMCHC 34.30 g/dLRDW CV 13.40 %MPV 11.10 fLPLT 215 %NEUT 57.70 %%LYMP 31.80 %%MONO 7.40 %%EOS 2.70 %%BASO 0.40 %#NEUT 4.13 #LYMP 2.28 #MONO 0.53 #EOS 0.19 #BASO 0.03 GLUCOSE 98.0 mg/dLSODIUM 140.0 mmol/LPOTASSIUM 4.10 mmol/LCHLORIDE 105.0 mmol/LCO2 25.0 mmol/LBUN 11.0 mg/dLCREATININE 0.90 mg/dLSGOT/AST 29.0 IU/LSGPT/ALT 35.0 IU/LALK PHOS 58.0 IU/LTOTAL PROTEIN 7.40 g/dLALBUMIN 4.50 g/dLTOTAL BILI 0.80 mg/dLCALCIUM 10.0 mg/dLeGFR 60 TRIGLYCERIDES 139.0 mg/dLCHOLESTEROL 161.0 mg/dLHDL 35.0 mg/dLLDL (CALC) 98.0 mg/dL History Of Immunizations Name Date Admin Mfg Name Mfg Code Trade Name Lot# Route Inj Vis Given Vis Pub CVX Influenza 07/02/2009 Not Entered NE Not Entered Not Entered Not Entered 10/05/2019 10/05/2019 999 Pneumococcal 04/12/2009 [employer] MSD Pneumovax 23 Int ramuscular Not Entered 10/05/2019 10/05/2019 999 History of Past Illness Name Date of Onset Comments Cough Oct 24 2009 4:01PM Acute Maxillary Sinusitis Oct 24 2009 4:01PM Wheezing Oct 24 2009 4:01PM Calculus Of Kidney Arthritis unspecified Osteopenia Obesity Menopausal Syndrome Hyperlipidemia Allergic Rhinitis Migraine Fibrocystic Disease Of Breast lumbar back [...] 2011 4:57PM Urticaria May 07 2011 4:57PM Pruritus Sep 12 2011 10:29AM Anxiety state; [...] 1:07PM Screening Mammogram Jun 18 2015 3:57PM Payers Insurance Name Company Name Plan Name Plan Number Policy Number Sanjay cy Group Number Start Date Medicare Part B Medicare [facility] [id number] Friday, 2013 [place] [facility] hia [place] [employer] Ins [id number] N/A Medicare Part A Medicare P A - Preventive [id number] N/A Bcbs B[employer] [facility] [id number] 2013 Medicare Part A Medicare Part A [id number] Friday, 2013 [facility] [employer] [place] [employer] [id number] N/A History of Encounters Visit Date Visit Type Provider 11/30/2014 Office visit Sharon Villanueva 10/18/2014 Office visit Jada Pulliam MECHANIC HELPER 08/17/2014 Office visit Jaylene Rebolledo MD 06/28/2014 Office visit Jada Pulliam MECHANIC HELPER 06/01/2014 Office visit Sharon Villanueva 04/28/2014 Nurse visit Jada Pulliam MECHANIC HELPER 07/20/2013 Office visit Jada Pulliam MECHANIC HELPER 07/05/2013 Nurse visit Jada Pulliam MECHANIC HELPER 01/10/2013 Office visit Jada Pulliam MECHANIC HELPER 12/29/2012 Nurse visit Jada Pulliam MECHANIC HELPER 06/16/2012 Office visit Jada Pulliam MECHANIC HELPER 05/04/2012 Office visit Jada Pulliam MECHANIC HELPER 03/10/2012 Office visit Jada Pulliam MECHANIC HELPER 03/04/2012 Office visit Jada Pulliam MECHANIC HELPER 01/13/2012 Office visit Ezequiel Mahan MD 01/08/2012 Nurse visit Mikki Carrasco MD 12/16/2011 Voided Ezequiel Mahan MD 11/28/2011 Office visit Ezequiel Mahan MD 10/28/2011 Office visit Jada Pulliam MECHANIC HELPER 08/14/2011 Office visit Ezequiel Mahan MD 08/07/2011 [...]
--- OUTSIDE RECORDS SUMMARY | 2019-12-14 17:58 | XMS REPORT ---
Author Shandra Porter Organization [facility] Address [address] [place], [place] [address] Care Team Providers Care Mortgage Loan Funder Name Role Phone Jada Pulliam PCP Unavailable Allergies and Adverse Reactions Name Reaction Notes ciprofloxacin migraine codeine sulfate Plan of Treatment Planned Activity Comments Planned Date Planned Time Plan/Goal lumbar pain 12/17/2015 2:00 PM MAMMOGRAM BOTH BREASTS 06/18/2015 12:00 AM Medications [...] 1 cap eliane by oral route daily Estrace 0.01 % (0.1 mg/gram) vaginal cream 11/08/2014 apply 1 applicatorful by vaginal route twice a week Retin-A 0.025 % topical cream 06/18/2015 ap ply to the affected area(s) by topical route once daily at bedtime atorvastatin 40 mg oral tablet 06/28/2015 T TRISTA ONE TABLET BY MOUTH ONCE DAILY AT BEDTIME atorvastatin 40 mg oral tablet 09/25/2015 T TRISTA ONE TABLET BY MOUTH ONCE DAILY AT BEDTIME phentermine 37.5 mg oral tablet 11/14/2015 take 1 tablet (37.5 mg) by oral route once daily before breakfast Lipitor 40 mg oral tablet 11/26/2015 take 1 tablet (40 mg) by oral route once daily at bedtime for 30 days cyclobenzaprine 10 mg oral tablet 01/09/2016 take 1 tablet by oral route once a day (at bedtime) Lortab 7.5-325 7.5-325 mg oral tablet 01/09/2016 take 1 tablet by oral route every 6 hours as needed for pain gabapentin 100 mg oral capsule 01/09/2016 04/08/2016 t trista 3 capsules (300 mg) by oral route 3 times per day for 30 days Name Start Date Expiration [...] times per day for 30 day s Zithromax Z-Meliton 250 mg oral tablet 09/14/2015 09/19/2015 take 2 tablets (500 mg) by oral route once daily for 1 day then 1 tablet (250 mg) by oral route once daily for 4 days Lipitor 40 mg oral tablet 10/23/2015 11/22/2015 take 1 tablet (40 mg) by oral route once daily at bedtime for 30 days Discontinued Name Start Date [...] oral route every 6 hours as needed gabapentin 100 mg oral capsule 11/14/2015 01/09/2016 T TRISTA ONE CAPSULE BY MOUTH TWICE DAILY, IN THE MORNING AND MID-DAY gabapentin 300 mg oral capsule 01/09/2016 01/09/2016 t trista 1 capsule (300 mg) by oral route 3 times per day for 30 days Problem List Description Status [...] HC BMI BSA BMI Percentile O2 Sat(%) 01/09/2016 1:53:00 PM 122 mmHg 76 mmHg 87 bpm 18 rpm 97.3 F 227 lbs 68 in 34.51 kg/m2 2.22 m2 97 % 11/14/2015 1:37:00 PM 134 mmHg 72 mmHg 80 bpm 18 rpm 97.3 F 227 lbs 68 in 34.5149 kg/m 2.2226 m 97 % 10/18/2014 11:18:00 AM 128 mmHg [...] 06/03/2011 12:00 AM URINE CULTURE/COLONY COUNT Reviewed 07/16/2015 12:00 AM Fluzone MEDICARE Only Reviewed 07/16/2015 12:00 AM TDAP VACCINE 7 YRS/> IM Reviewed 11/14/2015 12:00 AM COMPLETE CBC W/AUTO DIFF WBC Returned 11/14/2015 12:00 AM COMPREHEN METABOLIC PANEL Returned 11/14/2015 12:00 AM LIPID PANEL Returned 11/14/2015 12:00 AM ASSAY THYROID STIM HORMONE Returned 11/14/2015 12:00 AM MRI LUMBAR SPINE W/O DYE Returned 11/15/2015 12:00 AM GLYCOSYLATED HEMOGLOBIN TEST Returned 08/07/2011 12:00 AM THER/PROPH/DIAG INJ SC/IM Reviewed 08/07/2011 12:00 AM Solu-Medrol 125 Mg Reviewed 10/29/2011 12:00 AM URINALYSIS AUTO W/O SCOPE Reviewed 10/28/2011 12:00 AM COMPLETE CBC W/AUTO DIFF WBC Returned 10/28/2011 12:00 AM COMPREHEN METABOLIC PANEL Returned 10/28/2011 12:00 AM URINE CULTURE/COLONY COUNT Returned 01/08/2012 12:00 AM THER/PROPH/DIAG INJ SC/IM Reviewed 01/08/2012 12:00 AM Depo-Medrol 40 mg [facility]#[id number] Reviewe d 03/12/2012 12:00 AM URINALYSIS AUTO [...] Mg [facility]# [address]-58 Re viewed 01/10/2013 12:00 AM Depo-Medrol, Per 80 Mg [facility]#7618-6373-49 Reviewed 07/05/2013 12:00 AM Prolia, 60 Mg Reviewed 07/20/2013 12:00 AM THER/PROPH/DIAG INJ SC/IM Reviewed 07/20/2013 12:00 AM Depo-Medrol, Per 80 Mg [facility]#7740-5234-12 Reviewed 07/20/2013 12:00 AM Decadron, Per 1 Mg [facility]# [address]-91 Re viewed 05/13/2010 12:00 AM COMPREHEN METABOLIC [...] Reviewed 10/24/2009 12:00 AM Kenalog 40 Mg [facility]#2471-9224-34 Review ed 12/26/2014 12:00 AM Prolia, 60 [...] LESTEROL 189.0 mg/dLHDL 37.0 mg/dLLDL (CALC) 103.0 mg/dLGLUCOSE 106.0 mg/dLSODIUM 141.0 mmol/LPOTASSIUM 4.30 mmol/LCHLORIDE 107.0 [...] mg/dLHDL 47.0 mg/dLLDL (CALC) 135.0 mg/dLSEDRATE 10.0 mm/hr 12/02/2012 3:02 PM GLUCOSE 97.0 mg/dLSODIUM 143 [...] 161.0 mg/dLHDL 35.0 mg/dLLDL (CALC) 98.0 mg/dL 11/15/2015 8:46 AM WBC 5.9 RBC 4.75 HGB 14.50 g /dLHCT 43.60 %MCV 92.0 fLMCH 30.50 pgMCHC 33.30 g/dLRDW CV 13.20 %MPV 10.50 fLPLT 232 %NEUT 41.0 %%LYMP 48.20 %%MONO 8.10 %%EOS 2.40 %%BASO 0.30 %#NEUT 2.43 #LYMP 2.86 #MONO 0.48 #EOS 0.14 #BASO 0.02 GLUCOSE 111.0 mg/dLSODIUM 141.0 mmol/LPOTASSIUM 3.70 mmol/LCHLORIDE 107.0 mmol/LCO2 25.0 mmol/LBUN 16.0 mg/dLCREATININE 0.90 mg/dLSGOT/AST 19.0 IU/LSGPT/ALT 27.0 IU/LALK PHOS 70.0 IU/LTOTAL PROTEIN 6.80 g/dLALBUMIN 4.40 g/dLTOTAL BILI 0.80 mg/dLCALCIUM 9.10 mg/dLeGFR >60 mL/min/1.73mTRIGLYCERIDES 113.0 mg/dLCHOLESTEROL 142.0 mg/dLHDL 37.0 mg/dLLDL (CALC) 82.0 mg/dLTSH 2.080 uIU/mLHemoglobin A1c 6.10 % History Of Immunizations Name Date Admin Mfg Name Mfg Code Trade Name Lot# Route Inj Vis Given Vis Pub CVX Influenza 07/02/2009 Not Entered NE Not Entered Not Entered Not Entered 10/05/2019 10/05/2019 999 X 04/12/2009 [employer] MSD Pneumovax 23 Intramus cular Not Entered 10/05/2019 10/05/2019 999 Tdap 07/16/2015 [employer] SKB BOOSTRIX [id number] Intramuscula r Right Deltoid [...] Lumbar spinal stenosis Jan 09 2016 1:58PM Payers Insurance Name Company Name Plan Name Plan Number Policy Number Sanjay cy Group Number Start Date Medicare Part A Medicare Part A [facility] [id number] N/A [employer] Insurance [facility] [facility] [place] [employer] [facility] [id number] N/A Medicare Part A Medicare P A - Preventive [id number] N/A BCBS Bcbs [facility] [id number] 2013 Medicare Part A Medicare Part A [id number] Friday, 2013 [facility] Life [facility] [place] [employer] [id number] N/A Medicare Part B Medicare Of [place] [id number] Friday, 2013 History of Encounters Visit Date Visit Type Provider 01/09/2016 Office visit Jada Pulliam RADAR TESTER 11/14/2015 Office visit Jada Pulliam RADAR TESTER 07/16/2015 Nurse visit Jada Pulliam RADAR TESTER 11/30/2014 Office visit Sharon Villanueva 10/18/2014 Office visit Jada Pulliam RADAR TESTER 08/17/2014 Office visit Jaylene Rebolledo MD 06/28/2014 Office visit Jada Pulliam RADAR TESTER 06/01/2014 Office visit Sharon Villanueva 04/28/2014 Nurse visit Jada Pulliam RADAR TESTER 07/20/2013 Office visit Jada Pulliam RADAR TESTER 07/05/2013 Nurse visit Jada Pullima RADAR TESTER 01/10/2013 Office visit Jada Pulliam RADAR TESTER 12/29/2012 Nurse visit Jada Pulliam RADAR TESTER 06/16/2012 Office visit Jada Pulliam RADAR TESTER 05/04/2012 Office visit Jada Pulliam RADAR TESTER 03/10/2012 Office visit Jada Pulliam RADAR TESTER 03/04/2012 Office visit Jada Pulliam RADAR TESTER 01/13/2012 Office visit Ezequiel Mahan MD 01/08/2012 Nurse visit Mikki Carrasco MD 12/16/2011 Neris Mahan MD 11/28/2011 Office visit Ezequiel Mahan MD 10/28/2011 Office visit Jada Pulliam RADAR TESTER 08/14/2011 Office visit Ezequiel Mahan MD 08/07/2011 [...]
--- OUTSIDE RECORDS SUMMARY | 2019-12-14 17:58 | XMS REPORT ---
Author Shandra Porter Organization [facility] Address [address] [place], [place] [address] Care Team Providers Care Steam Service Inspector Name Role Phone Jada Pulliam PCP Unavailable [...] atorvastatin 40 mg oral tablet 06/28/2015 T KINDRA ONE TABLET BY MOUTH ONCE DAILY AT BEDTIME atorvastatin 40 mg oral tablet 09/25/2015 T KINDRA ONE TABLET BY MOUTH ONCE [...] 100 mg oral capsule 01/09/2016 04/08/2016 t kindra 3 capsules (300 mg) by oral route 3 times per day for 30 days tretinoin 0.025 % topical cream 01/10/2016 APPLY CREAM TO AFFECTED AREA ONCE DAILY AT BEDTIME Name Start Date [...] Reviewed 01/08/2012 12:00 AM Depo-Medrol 40 mg [facility]#[id number] Reviewe d 03/12/2012 12:00 AM URINALYSIS AUTO [...] 01/10/2013 12:00 AM Decadron, Per 1 Mg [place]# [address]-99 Re viewed 01/10/2013 12:00 AM Depo-Medrol, Per 80 Mg [facility]#6165-3888-73 Reviewed 07/05/2013 12:00 AM Prolia, 60 Mg Reviewed 07/20/2013 12:00 AM THER/PROPH/DIAG INJ SC/IM Reviewed 07/20/2013 12:00 AM Depo-Medrol, Per 80 Mg [facility]#9960-4228-17 Reviewed 07/20/2013 12:00 AM Decadron, Per 1 Mg [facility]# [address]-69 Re viewed 05/13/2010 12:00 AM COMPREHEN METABOLIC [...] 10/24/2009 12:00 AM Kenalog 40 Mg [facility]#0346-4818-47 Review ed 12/26/2014 12:00 AM Prolia, 60 [...] Not Entered 10/05/2019 10/05/2019 999 Tdap 07/16/2015 [employer] BOOSTRIX [id number] Intramuscula r Right Deltoid [...] 2016 1:58PM Osteopenia Feb 27 2016 2:47PM Payers Insurance Name Company Name Plan Name Plan Number Policy Number Sanjay cy Group Number Start Date Medicare Part A Medicare [facility] [id number] N/A [place] [employer] Insurance [facility] [address] [id number] N/A Medicare Part A Medicare P A - Preventive [id number] N/A BCBS Bcbs [facility] [id number] 2013 Medicare Part A Medicare Part A [id number] Friday, 2013 [facility] [employer] [facility] [place] [employer] [id number] N/A Medicare Part B Medicare [facility] [id number] Friday, 2013 History of Encounters Visit Date Visit Type Provider 01/09/2016 Office visit Jada Pulliam JUKEBOX OPERATOR 11/14/2015 Office visit Jada Pulliam JUKEBOX OPERATOR 07/16/2015 Nurse visit Jada Pulliam JUKEBOX OPERATOR 11/30/2014 Office visit Sharon Villanueva 10/18/2014 Office visit Jada Pulliam JUKEBOX OPERATOR 08/17/2014 Office visit Jaylene Rebolledo MD 06/28/2014 Office visit Jada Pulliam JUKEBOX OPERATOR 06/01/2014 Office visit Sharon Villanueva 04/28/2014 Nurse visit Jada Pulliam JUKEBOX OPERATOR 07/20/2013 Office visit Jada Pulliam JUKEBOX OPERATOR 07/05/2013 Nurse visit Jada Pulliam JUKEBOX OPERATOR 01/10/2013 Office visit Jada Pulliam JUKEBOX OPERATOR 12/29/2012 Nurse visit Jada Pulliam JUKEBOX OPERATOR 06/16/2012 Office visit Jada Pulliam JUKEBOX OPERATOR 05/04/2012 Office visit Jada Pulliam JUKEBOX OPERATOR 03/10/2012 Office visit Jada Pulliam JUKEBOX OPERATOR 03/04/2012 Office visit Jada Pulliam JUKEBOX OPERATOR 01/13/2012 Office visit Ezequiel Mahan MD 01/08/2012 Nurse visit Mikki Carrasco MD 12/16/2011 Neris aMhan MD 11/28/2011 Office visit Ezequiel Mahan MD [...]
--- OUTSIDE RECORDS SUMMARY | 2019-12-14 17:59 | XMS REPORT ---
Author Shandra Porter Organization [facility] Address [address] [place], [place] [id number] Care Team Providers Care Targeting Acquisition Officer Name Role Phone Jada Pulilam PCP Unavailable Jada Pulliam PreferredProvider Unavailable Allergies and Adverse Reactions Name Reaction Notes ciprofloxacin migraine codeine sulfate Plan of Treatment Planned Activity Comments Planned Date Planned Time Plan/Goal Urine Culture, [place] Count 03/04/2016 12:00 AM BMP 09/08/2016 12:00 AM CBC W/ AUTO DIFF (RFLX MAN DIFF IF IND). 09/08/2016 12:00 AM Chest PA and Lateral - MOB 09/08/2016 12:00 AM lumbar pain 12/17/2015 2:00 PM [...] TABLET BY MOUTH ONCE DAILY AT BEDTIME Lipitor 40 mg oral tablet 11/26/2015 take 1 tablet (40 mg) by oral route once daily at bedtime for 30 days cyclobenzaprine 10 mg oral tablet 01/09/2016 take 1 tablet by oral route once a day (at bedtime) tretinoin 0.025 % topical cream 01/10/2016 APPLY CREAM TO AFFECTED AREA ONCE DAILY AT BEDTIME hydrocodone-acetaminophen 7.5-325 mg oral tablet 02/29/2016 take 1 tablet by oral route every 6 hours as needed for pain hydroxyzine HCl 25 mg oral tablet 03/26/2016 take 1 tablet (25 mg) by oral route 3 times per day as needed Zantac 150 mg oral tablet 03/26/2016 take 1 tablet (150 mg) by oral route 2 times per day Xanax 0.25 mg oral tablet 06/30/2016 Take one tablet daily at needed Keflex oral promethazine-codeine 6.25-10 mg/5 mL oral syrup 08/05/2016 take 5 milliliters by oral route every 4-6 hours as needed, not to exceed 30 mL in 24 hours Flonase Allergy Relief 50 mcg/actuation nasal spray,suspension 1 10/12/2015 inhale 2 sprays (100 mcg) in each nostril by intranasal route once daily ProAir HFA 90 mcg/actuation inhalation HFA aerosol inhaler 2015 inhale 1 puff (90 mcg) by inhalation route every 4-6 hours as needed Medrol (Meliton) 4 mg oral tablets,dose pack 08/12/2016 take as directed Name Start Date Expiration Date SIG Comments [...] per day for 30 day s Zithromax Z-Melitno 250 mg oral tablet 09/14/2015 09/19/2015 take 2 tablets (500 mg) by oral route once daily for 1 day then 1 tablet (250 mg) by oral route once daily for 4 days Lipitor 40 mg oral tablet 10/23/2015 11/22/2015 take 1 tablet (40 mg) by oral route once daily at bedtime for 30 days gabapentin 100 mg oral capsule 01/09/2016 04/08/2016 t kindra 3 capsules (300 mg) by oral route 3 times per day for 30 days Bactrim DS 800-160 mg [...] route every 12 hours for 7 days diclofenac sodium 75 mg oral tablet,delayed release (DR/EC) 08/0509/04/2016 take 1 tablet (75 mg) by oral route 2 times per day for 30 days Levaquin 750 mg oral tablet 08/12/2016 08/19/2016 take 1 tablet (750 mg) by oral route once daily for 7 days Discontinued Name Start Date [...] by oral route once daily before breakfast gabapentin 300 mg oral capsule 01/09/2016 01/09/2016 t kindra 1 capsule (300 mg) by oral route 3 times per day for 30 days Lortab 7.5-325 7.5-325 mg oral tablet 01/09/2016 03/26/2016 take 1 tablet by oral route every 6 hours as needed for pain Augmentin 875-125 mg oral tablet 03/31/2016 07/21/2016 take 1 tablet by oral route every 12 hours Problem List Description Status Onset Allergic rhinitis [...] HC BMI BSA BMI Percentile O2 Sat(%) 08/12/2016 1:30:00 PM 136 mmHg 74 mmHg 87 bpm 18 rpm 98 F 218.25 lbs 68 in 33.18 kg/m2 2.18 m2 96 % 08/05/2016 8:28:00 AM 100 mmHg 60 mmHg 80 bpm 18 rpm 98.4 F 219 lbs 68 in 33.2985 kg/m 2.1831 m 95 % 07/21/2016 2:43:00 PM 124 mmHg 62 mmHg 86 bpm 18 rpm 98 F 216 lbs 68 in 32.84 kg/m2 2.17 m2 94 % 07/09/2016 5:16:00 PM 124 mmHg 90 mmHg 130 bpm 98.2 F 214 lbs 68 in 32.5383 kg/m 2.158 m 96 % 04/13/2016 1:38:00 PM 122 mmHg 77 mmHg 87 bpm 18 rpm 99.3 F 224 lbs 68 in 34.06 kg/m2 2.21 m2 95 % 03/26/2016 3:14:00 PM 138 mmHg 78 mmHg 94 bpm 18 rpm 98.5 F 226.25 lbs 68 i n 34.4008 kg/m 2.219 m 97 % 02/29/2016 11:28:00 AM 136 mmHg [...] rpm 98.8 F 236.125 lbs 68 in 35.90 kg/m2 2.27 m2 08/14/2011 3:14:00 PM 130 mmHg 80 mmHg [...] 08/07/2011 12:00 AM Solu-Medrol 125 Mg Reviewed 02/29/2016 12:00 AM URNLS DIP STICK/TABLET RGNT AUTO W/O KATHRIN ROSCOPY Returned 02/29/2016 12:00 AM Rocephin 1 gram [facility]#6819-7764-32 Reviewe d 03/27/2016 12:00 AM URNLS DIP STICK/TABLET RGNT AUTO W/O KATHRIN ROSCOPY Returned 03/26/2016 12:00 AM Benadryl, Up to 50 Mg [facility]# 4885-2455-97 Reviewed 04/04/2016 12:00 AM IMMUNOTHERAPY ONE INJECTION Reviewed 04/13/2016 12:00 AM Depo-Medrol, Per 80 Mg [facility]#[address]-58 Reviewed 04/13/2016 12:00 AM Decadron, Per 1 Mg [facility]# [address]-08 Re viewed 04/13/2016 12:00 AM THER/PROPH/DIAG INJ SC/IM Reviewed 10/29/2011 12:00 AM URINALYSIS AUTO W/O SCOPE Reviewed 10/28/2011 12:00 AM COMPLETE CBC W/AUTO DIFF WBC Reviewed 10/28/2011 12:00 AM COMPREHEN METABOLIC PANEL Reviewed 10/28/2011 12:00 AM URINE CULTURE/COLONY COUNT Reviewed 05/22/2016 12:00 AM ALLERGEN SPECIFIC IGE Returned 05/22/2016 12:00 AM Decadron, Per 1 Mg [facility]# [address]-94 Re viewed 05/22/2016 12:00 AM Depo-Medrol 40mg Reviewed 05/22/2016 12:00 AM THER/PROPH/DIAG INJ SC/IM Reviewed 07/21/2016 12:00 AM METABOLIC PANEL TOTAL CA Returned 07/21/2016 12:00 AM COMPLETE CBC W/AUTO DIFF WBC Returned 2016 12:00 AM MAMMOGRAPHY SCREENING, DIGITAL Reviewed 08/05/2016 12:00 AM CYTOPATH C/V THIN LAYER Reviewed 08/05/2016 12:00 AM DXA BONE DENSITY AXIAL Returned 08/05/2016 12:00 AM Pap Specimen Handling - Medicare Reviewe d 08/05/2016 12:00 AM MAMMOGRAPHY SCREENING, DIGITAL Reviewed 01/08/2012 12:00 AM THER/PROPH/DIAG INJ SC/IM Reviewed 01/08/2012 12:00 AM Depo-Medrol 40 mg [facility]#[id number] Reviewe d 03/12/2012 12:00 AM URINALYSIS AUTO W/O SCOPE Reviewed 03/10/2012 12:00 AM URINE CULTURE/COLONY COUNT Reviewed 05/04/2012 12:00 AM COMPLETE CBC W/AUTO DIFF WBC Reviewed 05/04/2012 12:00 AM COMPREHEN METABOLIC PANEL Reviewed 05/04/2012 12:00 AM LIPID PANEL Reviewed 05/04/2012 12:00 AM GLYCOSYLATED HEMOGLOBIN TEST Reviewed 05/04/2012 12:00 AM RBC SED RATE NONAUTOMATED Reviewed 06/16/2012 12:00 AM X-RAY EXAM OF FOOT Reviewed 12/01/2012 12:00 AM COMPREHEN METABOLIC PANEL Reviewed 12/29/2012 12:00 AM Prolia, 60 Mg Reviewed 12/29/2012 12:00 AM THER/PROPH/DIAG INJ SC/IM Reviewed 01/10/2013 12:00 AM THER/PROPH/DIAG INJ SC/IM Reviewed 01/10/2013 12:00 AM Decadron, Per 1 Mg [facility]# [address]-06 Re viewed 01/10/2013 12:00 AM Depo-Medrol, Per 80 Mg [facility]#1538-3947-55 Reviewed 07/05/2013 12:00 AM Prolia, 60 Mg Reviewed 07/20/2013 12:00 AM THER/PROPH/DIAG INJ SC/IM Reviewed 07/20/2013 12:00 AM Depo-Medrol, Per 80 Mg [facility]#5986-6328-32 Reviewed 07/20/2013 12:00 AM Decadron, Per 1 Mg [facility]# [address]-99 Re viewed 05/13/2010 12:00 AM COMPREHEN METABOLIC [...] Kenalog 40 Mg [facility]#8672-6592-30 Review ed 12/26/2014 12:00 AM Prolia, 60 [...] CULT SET UP? YES 05/22/2016 3:30 PM X829-SuA D pteronyssinus <0. 10 U/aGO396-HgC D farinae <0.10 U/wKC805-SzA Cat Dander <0.10 V814-MwU Dog Dander <0.10 U/mHH659-ByH [place] Grass <0.10 U/qCC387-XzO Bluegrass,[place] <0.10 U/eJS919-IkQ [place] Grass <0.10 U/wHB126-FnD Cockroach,[place] <0.10 C806-McS Penicilliumchrysogen <0.10 P882-WaL Cladosporiumherbarum <0.10 O317-UuG Aspergillusfumigatus <0.10 H180-BcJ Mucor racemosus <0.10 U157-CpV Alternariaalternata <0.10 N094-IcU Stemphyliumherbarum <0.10 B768-XdV Maple/[place] <0.10 U/eZL147-DvM [place], White <0.10 U/gFW500-GpE Elm, [place] <0.10 U/tVT520-UyE [place] <0.10 U/nYX768-RqJ Merlin, White <0.10 U/sKK425-DfN Maple LeafSycamore <0.10 U/zGV224-LnP [place] <0.10 U/bZO138-XqA Ragweed, Short <0.10 C802-HxY [place] <0.10 W009- IgE Plantain,Zambian <0.10 L706-XjQ Thistle, Martiniquais <0.10 N577-PkM Pigweed, Common <0.10 B126-RhK Sheep [place] <0.10 Q267-HvQ Milk <0.10 K754-ZjY Wheat <0.10 U/aWH851-FkY [place] <0.10 U/vIZ190-GlL Peanut <0.10 U/iIU245-GjL Soybean <0.10 U/qIG316-LuS Pork <0.10 U/iZM347-VzS Beef <0.10 U/nMAB98-GiR Food Mix(Seafoods) Negative V443-FwU Egg, Whole <0.10 U/uBF734-DnJ Chocolate/[place] <0.10 07/21/2016 3:26 PM GLUCOSE 104.0 mg/dLSODIUM [...] 0.14 #BASO 0.01 MANUAL DIFF NOT IND History Of Immunizations Name Date Admin Mfg Name Mfg Code Trade Name Lot# Route Inj Vis Given Vis Pub CVX Influenza 07/02/2009 Not Entered NE Not Entered Not Entered Not Entered 10/05/2019 10/05/2019 999 X 04/12/2009 [employer] MSD Pneumovax 23 Intramus cular Not Entered 10/05/2019 10/05/2019 999 Tdap 07/16/2015 [facility] [id number] Intramuscula r Right Deltoid [...] than 3 weeks Sep 08 2016 11:24AM Payers Insurance Name Company Name Plan Name Plan Number Policy Number Sanjay cy Group Number Start Date Medicare Part A Medicare C [id number] N/A [place] [facility] [facility] hia [employer] Ins [id number] N/A Medicare Part A ZZZMedicare P A - Preventive [id number] N/A Medicare Part A Medicare - Lab/Xray [id number] N/A BCBS [facility] [id number] July 05, 2013 Medicare Part A Medicare Part A [id number] Friday, July 05, 2013 [facility] [employer] [place] Retriement [id number] N/A Medicare Part B Medicare Of [place] [id number] Friday, July 05, 2013 History of Encounters Visit Date Visit Type Provider 08/12/2016 Office visit Jada Pulliam RIB BENDER 08/05/2016 Office visit Jada Pulliam RIB BENDER 07/21/2016 Office visit Jada Pulliam RIB BENDER 07/10/2016 [facility] Sage Green MD 07/09/2016 Office visit Valorie MCCLURE 07/09/2016 [facility] Jessica Dhaliwal MD 05/22/2016 Nurse visit Jada Pulliam RIB BENDER 04/13/2016 Office visit Katharina Murdock APR N 04/04/2016 Nurse visit Jada Pulliam RIB BENDER 03/26/2016 Office visit Jada Pulliam RIB BENDER 02/29/2016 Office visit Jada Pulliam RIB BENDER 01/09/2016 Office visit Jada Pulliam RIB BENDER 11/14/2015 Office visit Jada Pulliam RIB BENDER 07/16/2015 Nurse visit Jada Pulliam RIB BENDER 11/30/2014 Office visit Sharon Villanueva 10/18/2014 Office visit Jada Pulliam RIB BENDER 08/17/2014 Office visit Jaylene Rebolledo MD 06/28/2014 Office visit Jada Pulliam RIB BENDER 06/01/2014 Office visit Sharon Villanueva 04/28/2014 Nurse visit Jada Pulliam RIB BENDER 07/20/2013 Office visit Jada Pulliam RIB BENDER 07/05/2013 Nurse visit Jada Pulliam RIB BENDER 01/10/2013 Office visit Jada Pulliam RIB BENDER 12/29/2012 Nurse visit Jada Walker RIB BENDER 06/16/2012 Office visit Jada Pulliam RIB BENDER 05/04/2012 Office visit Jada Pulliam RIB BENDER 03/10/2012 Office visit Jada Pullaim RIB BENDER 03/04/2012 Office visit Jada Pulliam RIB BENDER 01/13/2012 Office visit Ezequiel Mahan MD 01/08/2012 Nurse visit Mikki Carrasco MD 12/16/2011 Voided Ezequiel Mahan MD 11/28/2011 Office visit Ezequiel Mahan MD 10/28/2011 Office visit Jada Pulliam RIB BENDER 08/14/2011 Office visit Ezequiel Mahan MD 08/07/2011 Nurse visit Ezequiel Mahan MD 06/03/2011 Office visit Jada Pulliam RIB BENDER 05/07/2011 Office visit Ezequiel Mahan MD 04/28/2011 [...]
--- OUTSIDE RECORDS SUMMARY | 2019-12-14 17:59 | XMS REPORT ---
Author Shandra Porter Organization [facility] Address [address] [place], [place] [address] Care Team Providers Care Photo Lab Specialist Name Role Phone Jada Pulliam PCP Unavailable Allergies and Adverse Reactions Name Reaction Notes ciprofloxacin migraine codeine sulfate Plan of Treatment Planned Activity Comments Planned Date Planned Time Plan/Goal URINE CULTURE/COLONY COUNT 03/04/2016 12:00 AM lumbar pain 12/17/2015 2:00 PM consult for frequent UTI MAMMOGRAM BOTH BREASTS 06/18/2015 12:00 AM Medications [...] one tablet daily at needed Keflex oral diclofenac sodium 75 mg oral tablet,delayed release (DR/EC) 08/0509/04/2016 take 1 tablet (75 mg) by oral route 2 times per day for 30 days promethazine-codeine 6.25-10 mg/5 mL oral syrup 08/05/2016 take 5 milliliters by oral route every 4-6 hours as needed, not to exceed 30 mL in 24 hours Name Start Date Expiration Date SIG Comments [...] HC BMI BSA BMI Percentile O2 Sat(%) 08/05/2016 8:28:00 AM 100 mmHg 60 mmHg [...] F 209.375 lbs 68 in 31.835 kg/m 2.13 m2 98 % 08/17/2014 2:11:00 PM 154 mmHg 77 mmHg 64 bpm 98.2 F 215.5 lbs 68 in 32.77 kg/m2 2.1656 m 06/28/2014 9:44:00 AM 134 mmHg 72 mmHg 74 bpm 18 rpm 98.2 F 223.25 lbs 68 i n 33.9447 kg/m 2.20 m2 96 % 07/20/2013 10:31:00 AM 132 mmHg 68 mmHg 71 bpm 18 rpm 97.4 F 231 lbs 68 in 35.12 kg/m2 2.2421 m 96 % 01/10/2013 1:33:00 PM 132 mmHg 68 mmHg 66 bpm 18 rpm 97.9 F 231.125 lbs 68 i n 35.1421 kg/m 2.24 m2 06/16/2012 2:03:00 PM 128 mmHg 72 mmHg 68 bpm 18 rpm 98.8 F 229.25 lbs 68 i n 34.86 kg/m2 2.2336 m 05/04/2012 4:40:00 PM 134 mmHg 68 mmHg 66 bpm 18 rpm 98.9 F 236.375 lbs 68 in 35.9403 kg/m 2.27 m2 03/10/2012 11:12:00 AM 128 mmHg 64 mmHg 66 bpm 18 rpm 226 lbs 68 in 34.36 kg/m2 2.2177 m 03/04/2012 2:59:00 PM 134 mmHg 68 mmHg 66 bpm 18 rpm 98 F 229.25 lbs 68 in 34.857 kg/m 2.23 m2 01/13/2012 9:08:00 AM 140 mmHg 90 mmHg 107 bpm 97.4 F 232 lbs 96 % 12/16/2011 3:48:00 PM 97 F 234 lbs 11/28/2011 1:39:00 PM 118 mmHg 75 mmHg 84 bpm 98.6 F 97 % 10/28/2011 4:15:00 PM 130 mmHg 78 mmHg 66 bpm 18 rpm 98.8 F 236.125 lbs 68 in 35.90 kg/m2 2.2669 m 08/14/2011 3:14:00 PM 130 mmHg [...] F 222.25 lbs 68 in 33.7927 kg/m 2.20 m2 94 % 11/07/2010 1:41:00 PM 130 mmHg 88 mmHg 66 bpm 18 rpm 98.8 F 225 lbs 68 in 34.21 kg/m2 2.2128 m 95 % 10/15/2010 4:06:00 PM 140 mmHg 90 mmHg 67 bpm 18 rpm 98.7 F 223.375 lbs 68 in 33.9637 kg/m 2.20 m2 96 % 08/27/2010 8:15:00 AM 128 mmHg 78 mmHg 64 bpm 16 rpm 96.8 F 225.5 lbs 05/16/2010 4:17:00 PM 150 mmHg 88 mmHg 88 bpm 16 rpm 98.3 F 231 lbs 68 in 35.1231 kg/m 2.24 m2 97 % 12/05/2009 4:39:00 PM 140 mmHg 100 mmHg 83 bpm 18 rpm 98.4 F 228.125 lbs 68 in 34.69 kg/m2 2.2281 m 98 % 11/07/2009 2:02:00 PM 120 mmHg 86 mmHg 77 bpm 18 rpm 98.8 F 230 lbs 68 in 34.971 kg/m 2.24 m2 99 % 10/24/2009 3:58:00 PM 110 mmHg 80 mmHg 80 bpm 18 rpm 97.6 F 229 lbs 68 in 34.82 kg/m2 2.2324 m 95 % Social History Name [...] Returned 02/29/2016 12:00 AM Rocephin 1 gram [facility]#9713-8500-90 Reviewe d 03/27/2016 12:00 AM URNLS DIP STICK/TABLET RGNT AUTO W/O KATHRIN ROSCOPY Returned 03/26/2016 12:00 AM Benadryl, Up to 50 Mg [facility]# 2857-8962-72 Reviewed 04/04/2016 12:00 AM IMMUNOTHERAPY ONE INJECTION Reviewed 04/13/2016 12:00 AM Depo-Medrol, Per 80 Mg [facility]#[address]-44 Reviewed 04/13/2016 12:00 AM Decadron, Per 1 Mg [facility]# [address]-45 Re viewed 04/13/2016 12:00 AM THER/PROPH/DIAG INJ SC/IM Reviewed 10/29/2011 12:00 AM URINALYSIS AUTO W/O SCOPE Reviewed 10/28/2011 12:00 AM COMPLETE CBC W/AUTO DIFF WBC Returned 10/28/2011 12:00 AM COMPREHEN METABOLIC PANEL Returned 10/28/2011 12:00 AM URINE CULTURE/COLONY COUNT Returned 05/22/2016 12:00 AM ALLERGEN SPECIFIC IGE Returned 05/22/2016 12:00 AM Decadron, Per 1 Mg [place]# [address]-78 Re viewed 05/22/2016 12:00 AM Depo-Medrol 40mg Reviewed 05/22/2016 12:00 AM THER/PROPH/DIAG INJ SC/IM Reviewed 07/21/2016 12:00 AM METABOLIC PANEL TOTAL CA Returned 07/21/2016 12:00 AM COMPLETE CBC W/AUTO DIFF WBC Returned 08/05/2016 12:00 AM CYTOPATH C/V THIN LAYER Reviewed 08/05/2016 12:00 AM DXA BONE DENSITY AXIAL Returned 01/08/2012 12:00 AM THER/PROPH/DIAG INJ SC/IM Reviewed 01/08/2012 12:00 AM Depo-Medrol 40 mg [facility]#[id number] Reviewe d 03/12/2012 12:00 AM URINALYSIS AUTO [...] 12:00 AM Decadron, Per 1 Mg ND# [address]-85 Re viewed 01/10/2013 12:00 AM Depo-Medrol, Per 80 Mg [place]#0452-3169-61 Reviewed 07/05/2013 12:00 AM Prolia, 60 Mg Reviewed 07/20/2013 12:00 AM THER/PROPH/DIAG INJ SC/IM Reviewed 07/20/2013 12:00 AM Depo-Medrol, Per 80 Mg [facility]#8809-2938-29 Reviewed 07/20/2013 12:00 AM Decadron, Per 1 Mg [facility]# [address]-30 Re viewed 05/13/2010 12:00 AM COMPREHEN METABOLIC [...] Reviewed 10/24/2009 12:00 AM Kenalog 40 Mg [facility]#6930-7694-31 Review ed 12/26/2014 12:00 AM Prolia, 60 [...] 82.0 mg/dLTSH 2.080 uIU/mLHemoglobin A1c 6.10 % 02/29/2016 10:58 AM COLOR YELLOW APPEARANCE ANTHONY R SPEC GRAV 1.020 pH 6.0 PROTEIN NEGATIVE GLUCOSE NEGATIVE mg/dLKETONE NEGATIVE BILIRUBIN NEGATIVE BLOOD NEGATIVE NITRITE POSITIVE LEUK SCREEN SMALL CASTS/LPF NEGATIVE /LPFCRYSTALS NEGATIVE MUCOUS THRDS FEW BACTERIA 2++ EPITH CELLS 1+ SQUAMOUS /HPFTRICHOMONAS NEGATIVE YEAST NEGATIVE 03/27/2016 3:20 PM COLOR YELLOW APPEARANCE ANTHONY R SPEC GRAV 1.025 pH 5.5 PROTEIN NEGATIVE GLUCOSE NEGATIVE mg/dLKETONE NEGATIVE BILIRUBIN NEGATIVE BLOOD TRACE- INTACT NITRITE NEGATIVE LEUK SCREEN SMALL CASTS/LPF NEGATIVE /LPFCRYSTALS NEGATIVE MUCOUS THRDS NEGATIVE BACTERIA FEW EPITH CELLS 1+ SQUAMOUS /HPFTRICHOMONAS NEGATIVE YEAST NEGATIVE 05/22/2016 3:30 PM Z370-XkL D pteronyssinus <0. 10 U/oOG957-HsR D farinae <0.10 U/qHI939-PlI Cat Dander <0.10 I157-QtO Dog Dander <0.10 U/uOL830-VpN [place] Grass <0.10 U/xTD556-XtV Bluegrass,[place] <0.10 U/aNR462-UeL [place] Grass <0.10 U/uGG455-NlL Maple/[place] <0.10 U/cJC827-AkH [place], White <0.10 U/zBQ325- IgE Elm, Lao <0.10 U/nXH212-MsW [place]add[place] <0.10 U/xYM474-JrT Merlin, White <0.10 U/fIJ648-NqE Maple LeafSycamore <0.10 U/gXP252-ArU [place] <0.10 U/dGY349-DcH Milk <0.10 T149-VdS Wheat <0.10 U/tTC911-SjX [place] <0.10 U/bLJ205- IgE Peanut <0.10 U/wXA807-DzZ Soybean <0.10 U/jVQ994-WuR Pork <0.10 U/bIK087-JiH Beef <0.10 U/qNGZ40-XaJ Food Mix(Seafoods) Negative W329-ZcZ Egg, Whole <0.10 U/oGU784-YnI Chocolate/[place] <0.10 07/21/2016 3:26 PM GLUCOSE 104.0 mg/dLSODIUM 14 4.0 mmol/LPOTASSIUM 4.0 mmol/LCHLORIDE 107.0 mmol/LCO2 27.0 mmol/LBUN 16.0 mg/dLCREATININE 1.0 mg/dLCALCIUM 9.40 mg/dLeGFR 55 WBC 6.2 RBC 4.23 HGB 12.60 g/dLHCT 39.70 %MCV 94.0 fLMCH 29.80 pgMCHC 31.70 g/dLRDW CV 13.20 %MPV 10.10 fLPLT 322 %NEUT 55.70 %%LYMP 33.30 %%MONO 7.70 %%EOS 2.30 %%BASO 0.20 %#NEUT 3.47 #LYMP 2.07 #MONO 0.48 #EOS 0.14 #BASO 0.01 History Of Immunizations Name Date Admin Mfg [...] of both knees Aug 05 2016 8:30AM Payers Insurance Name Company Name Plan Name Plan Number Policy Number Sanjay cy Group Number Start Date Medicare Part A Medicare [facility] [id number] N/A [place] [employer] Insurance Company [facility] [place] Life Ins [id number] N/A Medicare Part A ZZZMedicare P A - Preventive [id number] N/A Medicare Part A Medicare - Lab/Xray [id number] N/A BCBS [facility] [id number] July 05, 2013 Medicare Part A Medicare Part A [id number] Friday, July 05, 2013 [facility] [place] Retriement [id number] N/A Medicare Part B Medicare Of [place] [id number] Friday, July 05, 2013 History of Encounters Visit Date Visit Type Provider 08/05/2016 Office visit Jada Walker DISTRIBUTION FIELD TECHNICIAN 07/21/2016 Office visit Jdaa Walker DISTRIBUTION FIELD TECHNICIAN 07/10/2016 [facility] Sage Green MD 07/09/2016 Office visit Valorie MCCLURE 05/22/2016 Nurse visit Jada Walker DISTRIBUTION FIELD TECHNICIAN 04/13/2016 Office visit Katharina Murdock APR N 04/04/2016 Nurse visit Jada Walker DISTRIBUTION FIELD TECHNICIAN 03/26/2016 Office visit Jada Walker DISTRIBUTION FIELD TECHNICIAN 02/29/2016 Office visit Jada Walker DISTRIBUTION FIELD TECHNICIAN 01/09/2016 Office visit Jada Walker DISTRIBUTION FIELD TECHNICIAN 11/14/2015 Office visit Jada Walker DISTRIBUTION FIELD TECHNICIAN 07/16/2015 Nurse visit Jada Walker DISTRIBUTION FIELD TECHNICIAN 11/30/2014 Office visit Sharon Villanueva 10/18/2014 Office visit Jada Walker DISTRIBUTION FIELD TECHNICIAN 08/17/2014 Office visit Jaylene Reboleldo MD 06/28/2014 Office visit Jada Walker DISTRIBUTION FIELD TECHNICIAN 06/01/2014 Office visit Sharon Villanueva 04/28/2014 Nurse visit Jada Walker DISTRIBUTION FIELD TECHNICIAN 07/20/2013 Office visit Jada Walker DISTRIBUTION FIELD TECHNICIAN 07/05/2013 Nurse visit Jada Walker DISTRIBUTION FIELD TECHNICIAN 01/10/2013 Office visit Jada Walker DISTRIBUTION FIELD TECHNICIAN 12/29/2012 Nurse visit Jada Walker DISTRIBUTION FIELD TECHNICIAN 06/16/2012 Office visit Jada Walker DISTRIBUTION FIELD TECHNICIAN 05/04/2012 Office visit Jada Walker DISTRIBUTION FIELD TECHNICIAN 03/10/2012 Office visit Jada Walker DISTRIBUTION FIELD TECHNICIAN 03/04/2012 Office visit Jada Walker DISTRIBUTION FIELD TECHNICIAN 01/13/2012 Office visit Ezequiel Mahan MD 01/08/2012 Nurse visit Mikki Carrasco MD 12/16/2011 Voided Ezequiel Mahan MD 11/28/2011 Office visit Ezequiel Mahan MD 10/28/2011 Office visit Jada Pulliam DISTRIBUTION FIELD TECHNICIAN 08/14/2011 Office visit Ezequiel Mahan MD 08/07/2011 Nurse visit Ezequiel Mahan MD 06/03/2011 Office visit Jada Pulliam DISTRIBUTION FIELD TECHNICIAN 05/07/2011 Office visit Ezequiel Mahan MD 04/28/2011 [...]
--- OUTSIDE RECORDS SUMMARY | 2019-12-14 18:00 | XMS REPORT ---
Author Shandra Porter Organization [facility] Address [address] [place], [place] [address] Care Team Providers Care Shop Repairer Name Role Phone Jada Pulliam PCP Unavailable Jada Pulliam PreferredProvider Unavailable Allergies and Adverse Reactions Name Reaction Notes ciprofloxacin migraine codeine sulfate Plan of Treatment Planned Activity Comments Planned Date Planned Time Plan/Goal Urine Culture, [place] Count 03/04/2016 12:00 AM lumbar pain 12/17/2015 [...] one tablet daily at needed Keflex oral Flonase Allergy Relief 50 mcg/actuation nasal spray,suspension 1 10/12/2015 inhale 2 sprays (100 mcg) in each nostril by intranasal route once daily ProAir HFA 90 mcg/actuation inhalation HFA aerosol inhaler 2015 inhale 1 puff (90 mcg) by inhalation route every 4-6 hours as needed Medrol (Meliton) 4 mg oral tablets,dose pack 08/12/2016 take as directed promethazine-codeine 6.25-10 mg/5 mL oral syrup 09/09/2016 take 5 milliliters by oral route every 4-6 hours as needed, not to exceed 30 mL in 24 hours Zyrtec-D 5-120 mg oral tablet extended release 12 hr 09/09/2016 take 1 tablet by oral route 2 times per day Name Start Date Expiration [...] Returned 02/29/2016 12:00 AM Rocephin 1 gram [facility]#1601-2312-37 Reviewe d 03/27/2016 12:00 AM URNLS DIP STICK/TABLET RGNT AUTO W/O KATHRIN ROSCOPY Returned 03/26/2016 12:00 AM Benadryl, Up to 50 Mg [facility]# 1850-6793-29 Reviewed 04/04/2016 12:00 AM IMMUNOTHERAPY ONE INJECTION Reviewed 04/13/2016 12:00 AM Depo-Medrol, Per 80 Mg [facility]#[address]-11 Reviewed 04/13/2016 12:00 AM Decadron, Per 1 Mg [facility]# [address]-41 Re viewed 04/13/2016 12:00 AM THER/PROPH/DIAG INJ SC/IM Reviewed 10/29/2011 12:00 AM URINALYSIS AUTO W/O SCOPE Reviewed 10/28/2011 12:00 AM COMPLETE CBC W/AUTO DIFF WBC Reviewed 10/28/2011 12:00 AM COMPREHEN METABOLIC PANEL Reviewed 10/28/2011 12:00 AM URINE CULTURE/COLONY COUNT Reviewed 05/22/2016 12:00 AM ALLERGEN SPECIFIC IGE Returned 05/22/2016 12:00 AM Decadron, Per 1 Mg [facility]# [address]-87 Re viewed 05/22/2016 12:00 AM Depo-Medrol 40mg [...] Reviewed 01/08/2012 12:00 AM Depo-Medrol 40 mg [facility]#[id number] Reviewe d 09/08/2016 12:00 AM METABOLIC PANEL TOTAL CA Returned 09/08/2016 12:00 AM COMPLETE CBC W/AUTO DIFF WBC Returned 09/08/2016 12:00 AM RADIOLOGIC EXAM CHEST 2 VIEWS FRONTAL&LA TERAL Returned 03/12/2012 12:00 AM URINALYSIS AUTO W/O SCOPE [...] Per 1 Mg [facility]# [address]-78 Re viewed 01/10/2013 12:00 AM Depo-Medrol, Per 80 Mg [facility]#1460-3072-82 Reviewed 07/05/2013 12:00 AM Prolia, 60 Mg Reviewed 07/20/2013 12:00 AM THER/PROPH/DIAG INJ SC/IM Reviewed 07/20/2013 12:00 AM Depo-Medrol, Per 80 Mg [facility]#6801-9580-07 Reviewed 07/20/2013 12:00 AM Decadron, Per 1 Mg [facility]# [address]-92 Re viewed 05/13/2010 12:00 AM COMPREHEN METABOLIC [...] Reviewed 10/24/2009 12:00 AM Kenalog 40 Mg [facility]#9479-6808-25 Review ed 12/26/2014 12:00 AM Prolia, 60 [...] CULT SET UP? YES 05/22/2016 3:30 PM R752-RpJ D pteronyssinus <0. 10 U/mBX875-SdS D farinae <0.10 U/xMX068-TxW Cat Dander <0.10 U353-CbV Dog Dander <0.10 U/jJR026-AsT [place]erm[place] Grass <0.10 U/bDJ927-TmI [place], [place] <0.10 U/oVD472-CqZ [place] Grass <0.10 U/xOO416-WeF Cockroach,Cymro <0.10 F794-HvK Penicilliumchrysogen <0.10 I636-RxU Cladosporiumherbarum <0.10 V032-WbX Aspergillusfumigatus <0.10 D243-ZdF Mucor racemosus <0.10 N067-SdR Alternariaalternata <0.10 K597-OhO Stemphyliumherbarum <0.10 D469-JgN Maple/[place] <0.10 U/jOA891-CoP [place], White <0.10 U/eRG684-QuG Elm, Cymro <0.10 U/gHF520-WrC [place] <0.10 U/tZM283-RmG Merlin, White <0.10 U/kYD091-JjE Maple LeafSycamore <0.10 U/pIX214-SbX [place] <0.10 U/lCO969-HdH Ragweed, Short <0.10 U036-RiV [place] <0.10 W009- IgE Plantain,Algerian <0.10 P185-VyZ Thistle, Italian <0.10 N406-CpP Pigweed, Common <0.10 S221-RtR Sheep Anton Ruiz <0.10 U684-LfU Milk <0.10 O285-RlA Wheat <0.10 U/mON604-LjY [place] <0.10 U/iIK509-BrO Peanut <0.10 U/bLJ852-XoU Soybean <0.10 U/oGI316-BgP Pork <0.10 U/wOZ665-EwA Beef <0.10 U/hLNL79-PeP Food Mix(Seafoods) Negative S228-AkH Egg, Whole <0.10 U/rMT609-KyJ Chocolate/Barber <0.10 07/21/2016 3:26 PM GLUCOSE 104.0 mg/dLSODIUM [...] 0.42 #BASO 0.02 MANUAL DIFF NOT IND History Of Immunizations [...] Number Start Date Medicare Part A Medicare [facility] [id number] N/A [employer] Insurance Company [facility] hia Cymro Life Ins [id number] N/A Medicare Part A ZZZMedicare P A - Preventive [id number] N/A Medicare Part A Medicare - Lab/Xray [id number] N/A BCBS [facility] [id number] July 05, 2013 Medicare Part A Medicare Part A [id number] Friday, July 05, 2013 [facility] Cymro Retriement [id number] N/A Medicare Part B Medicare Of [place] [id number] Friday, July 05, 2013 History of Encounters Visit Date Visit Type Provider 08/12/2016 Office visit Jada Walker PONY RIDE OPERATOR 08/05/2016 Office visit Jada Walker PONY RIDE OPERATOR 07/21/2016 Office visit Jada Walker PONY RIDE OPERATOR 07/10/2016 [facility] Sage Green MD 07/09/2016 Office visit Valorie MCCLURE 07/09/2016 [facility] Jessica Dhaliwal MD 05/22/2016 Nurse visit Jada Walker PONY RIDE OPERATOR 04/13/2016 Office visit Katharina Murdock APR N 04/04/2016 Nurse visit Jada Walker PONY RIDE OPERATOR 03/26/2016 Office visit Jada Walker PONY RIDE OPERATOR 02/29/2016 Office visit Jada Walker PONY RIDE OPERATOR 01/09/2016 Office visit Jada Walker PONY RIDE OPERATOR 11/14/2015 Office visit Jada Walker PONY RIDE OPERATOR 07/16/2015 Nurse visit Jada Walker PONY RIDE OPERATOR 11/30/2014 Office visit Sharon Villanueva 10/18/2014 Office visit Jada Walker PONY RIDE OPERATOR 08/17/2014 Office visit Jaylene Rebolledo MD 06/28/2014 Office visit Jada Walker PONY RIDE OPERATOR 06/01/2014 Office visit Sharon Villanueva 04/28/2014 Nurse visit Jada Walker PONY RIDE OPERATOR 07/20/2013 Office visit Jada Walker PONY RIDE OPERATOR 07/05/2013 Nurse visit Jada Walker PONY RIDE OPERATOR 01/10/2013 Office visit Jada Walker PONY RIDE OPERATOR 12/29/2012 Nurse visit Jada Walker PONY RIDE OPERATOR 06/16/2012 Office visit Jada Walker PONY RIDE OPERATOR 05/04/2012 Office visit Jada Walker PONY RIDE OPERATOR 03/10/2012 Office visit Jada Walker PONY RIDE OPERATOR 03/04/2012 Office visit Jada Pulliam PONY RIDE OPERATOR 01/13/2012 Office visit Ezequiel Mahan MD 01/08/2012 Nurse visit Mikki Carrasco MD 12/16/2011 Voided Ezequiel Mahan MD 11/28/2011 Office visit Ezequiel Mahan MD 10/28/2011 Office visit Jada Pulliam PONY RIDE OPERATOR 08/14/2011 Office visit Ezequiel Mahan MD [...]
--- OUTSIDE RECORDS SUMMARY | 2019-12-14 18:01 | XMS REPORT ---
Author Author Shandra Murdock Organization [facility] Address [address] [place], [place] [address] Care Team Providers Care Lepidopterist Name Role Phone Katharina Murdock PCP Unavailable Allergies and Adverse Reactions Name Reaction Notes ciprofloxacin migraine codeine sulfate Plan of Treatment Planned Activity Comments Planned Date Planned Time Plan/Goal URINE CULTURE/COLONY COUNT 03/04/2016 12:00 AM lumbar pain 12/17/2015 2:00 PM MAMMOGRAM BOTH [...] 1,000 mg oral capsule take 1 cap elinae by oral route daily Estrace 0.01 % [...] day Augmentin 875-125 mg oral tablet 03/31/2016 take 1 tablet by oral route every 12 hours Name Start Date Expiration Date SIG [...] 16 take as directed for 7 days Discontinued Name Start Date [...] every 6 hours as needed for pain Problem List Description Status Onset Allergic rhinitis [...] HC BMI BSA BMI Percentile O2 Sat(%) 04/13/2016 1:38:00 PM 122 mmHg 77 mmHg [...] Returned 02/29/2016 12:00 AM Rocephin 1 gram [facility]#1044-2214-61 Reviewe d 03/27/2016 12:00 AM URNLS DIP STICK/TABLET RGNT AUTO W/O KATHRIN ROSCOPY Returned 03/26/2016 12:00 AM Benadryl, Up to 50 Mg [facility]# 7504-1277-47 Reviewed 04/04/2016 12:00 AM IMMUNOTHERAPY ONE INJECTION Reviewed 04/13/2016 12:00 AM Depo-Medrol, Per 80 Mg [place]#[address]-09 Reviewed 04/13/2016 12:00 AM Decadron, Per 1 Mg [facility]# [address]-50 Re viewed 04/13/2016 12:00 AM THER/PROPH/DIAG INJ SC/IM Reviewed 10/29/2011 12:00 AM URINALYSIS AUTO W/O SCOPE Reviewed 10/28/2011 12:00 AM COMPLETE CBC W/AUTO DIFF WBC Returned 10/28/2011 12:00 AM COMPREHEN METABOLIC PANEL Returned 10/28/2011 12:00 AM URINE CULTURE/COLONY COUNT Returned 01/08/2012 12:00 AM THER/PROPH/DIAG INJ SC/IM Reviewed 01/08/2012 12:00 AM Depo-Medrol 40 mg [facility]#[id number] Reviewe d 03/12/2012 12:00 AM URINALYSIS AUTO [...] 12:00 AM Decadron, Per 1 Mg [facility]# [address]-63 Re viewed 01/10/2013 12:00 AM Depo-Medrol, Per 80 Mg [facility]#2416-8206-75 Reviewed 07/05/2013 12:00 AM Prolia, 60 Mg Reviewed 07/20/2013 12:00 AM THER/PROPH/DIAG INJ SC/IM Reviewed 07/20/2013 12:00 AM Depo-Medrol, Per 80 Mg [facility]#3947-6296-70 Reviewed 07/20/2013 12:00 AM Decadron, Per 1 Mg [facility]# [address]-05 Re viewed 05/13/2010 12:00 AM COMPREHEN METABOLIC [...] Reviewed 10/24/2009 12:00 AM Kenalog 40 Mg [facility]#6866-6441-65 Review ed 12/26/2014 12:00 AM Prolia, 60 [...] 4.91 HGB 14.80 g/dLHCT 45.20 %MCV 92.0 [facility] 30.10 [facility] 32.70 g/dLRDW CV 13.40 %MPV 10.40 fLPLT [...] CELLS 1+ SQUAMOUS /HPFTRICHOMONAS NEGATIVE YEAST NEGATIVE History Of Immunizations Name Date Admin Mfg Name Mfg Code Trade Name Lot# Route Inj Vis Given Vis Pub CVX Influenza 07/02/2009 Not Entered NE Not Entered Not Entered Not Entered 10/05/2019 10/05/2019 999 X 04/12/2009 [employer]ck [employer] Co[employer] Inc[employer] MSD Pneumovax 23 Intramus cular Not Entered 10/05/2019 10/05/2019 999 Tdap 07/16/2015 [employer] SKB BOOSTRIX [id number] Intramuscula r Right Deltoid [...] 2016 6:03PM Hives Apr 13 2016 1:41PM Payers Insurance Name Company Name Plan Name Plan Number Policy Number Sanjay cy Group Number Start Date Medicare Part A Medicare [facility] [id number] N/A [place] [employer] Insurance [facility] Norwegian Life Ins [id number] N/A Medicare Part A Medicare P A - Preventive [id number] N/A Medicare Part A Medicare - Lab/Xray [id number] N/A [facility] [id number] July 05, 2013 Medicare Part A Medicare Part A [id number] Friday, July 05, 2013 [facility] [employer] [place] Retriement [id number] N/A Medicare Part B Medicare Of [place] [id number] Friday, July 05, 2013 History of Encounters Visit Date Visit Type Provider 04/13/2016 Office visit Katharina Murdock APR N 04/04/2016 Nurse visit Jada Pulliam DATA ACQUISITION TECHNICIAN 03/26/2016 Office visit Jada Pulliam DATA ACQUISITION TECHNICIAN 02/29/2016 Office visit Jada Pulliam DATA ACQUISITION TECHNICIAN 01/09/2016 Office visit Jada Pulliam DATA ACQUISITION TECHNICIAN 11/14/2015 Office visit Jada Pulliam DATA ACQUISITION TECHNICIAN 07/16/2015 Nurse visit Jada Pulliam DATA ACQUISITION TECHNICIAN 11/30/2014 Office visit Sharon Villanueva 10/18/2014 Office visit Jada Pulliam DATA ACQUISITION TECHNICIAN 08/17/2014 Office visit Jaylene Rebolledo MD 06/28/2014 Office visit Jada Pulliam DATA ACQUISITION TECHNICIAN 06/01/2014 Office visit Sharon Villanueva 04/28/2014 Nurse visit Jada Walker DATA ACQUISITION TECHNICIAN 07/20/2013 Office visit Jada Walker DATA ACQUISITION TECHNICIAN 07/05/2013 Nurse visit Jada Pulliam DATA ACQUISITION TECHNICIAN 01/10/2013 Office visit Jada Pulliam DATA ACQUISITION TECHNICIAN 12/29/2012 Nurse visit Jada Pulliam DATA ACQUISITION TECHNICIAN 06/16/2012 Office visit Jada Pulliam DATA ACQUISITION TECHNICIAN 05/04/2012 Office visit Jada Pulliam DATA ACQUISITION TECHNICIAN 03/10/2012 Office visit Jada Pulliam DATA ACQUISITION TECHNICIAN 03/04/2012 Office visit Jada Pulliam DATA ACQUISITION TECHNICIAN 01/13/2012 Office visit Ezequiel Mahan MD 01/08/2012 Nurse visit Mikki Carrasco MD 12/16/2011 Voided Ezequiel Mahan MD 11/28/2011 Office visit Ezequiel Mahan MD 10/28/2011 Office visit Jada Pulliam DATA ACQUISITION TECHNICIAN 08/14/2011 Office visit Ezequiel Mahan MD 08/07/2011 Nurse visit Ezequiel Mahan MD 06/03/2011 Office visit Jada Pulliam DATA ACQUISITION TECHNICIAN 05/07/2011 Office visit Ezequiel Mahan MD [...]
--- OUTSIDE RECORDS SUMMARY | 2019-12-14 18:01 | XMS REPORT ---
Author Shandra Porter Organization [facility] Address [address] [place], [place] [address] Care Team Providers Care Waste Transportation Technician Name Role Phone Jada Pulliam PCP Unavailable Allergies and Adverse Reactions Name Reaction Notes ciprofloxacin migraine codeine sulfate Plan of Treatment Planned Activity Comments Planned Date Planned Time Plan/Goal URINE CULTURE/COLONY COUNT 03/04/2016 12:00 AM DXA BONE DENSITY AXIAL 08/05/2016 12:00 AM lumbar pain 12/17/2015 2:00 PM [...] Returned 02/29/2016 12:00 AM Rocephin [address] [facility]#9926-0663-82 Reviewe d 03/27/2016 12:00 AM URNLS DIP STICK/TABLET RGNT AUTO W/O KATHRIN ROSCOPY Returned 03/26/2016 12:00 AM Benadryl, Up to [address] [facility]# 0120-1545-49 Reviewed 04/04/2016 12:00 AM IMMUNOTHERAPY ONE INJECTION Reviewed 04/13/2016 12:00 AM Depo-Medrol, Per [address] [facility]#[address]-95 Reviewed 04/13/2016 12:00 AM Decadron, Per [address] [facility]# [address]-84 Re viewed 04/13/2016 12:00 AM THER/PROPH/DIAG INJ SC/IM Reviewed 10/29/2011 12:00 AM URINALYSIS AUTO W/O SCOPE Reviewed 10/28/2011 12:00 AM COMPLETE CBC W/AUTO DIFF WBC Returned 10/28/2011 12:00 AM COMPREHEN METABOLIC PANEL Returned 10/28/2011 12:00 AM URINE CULTURE/COLONY COUNT Returned 05/22/2016 12:00 AM ALLERGEN SPECIFIC IGE Returned 05/22/2016 12:00 AM Decadron, Per [address] [facility]# [address]-55 Re viewed 05/22/2016 12:00 AM Depo-Medrol 40mg Reviewed 05/22/2016 12:00 AM THER/PROPH/DIAG INJ SC/IM Reviewed 07/21/2016 12:00 AM METABOLIC PANEL TOTAL CA Returned 07/21/2016 12:00 AM COMPLETE CBC W/AUTO DIFF WBC Returned 08/05/2016 12:00 AM CYTOPATH C/V THIN LAYER Reviewed 01/08/2012 12:00 AM THER/PROPH/DIAG INJ SC/IM Reviewed 01/08/2012 12:00 AM Depo-Medrol [address] [facility]#[id number] Reviewe d 03/12/2012 12:00 AM URINALYSIS AUTO [...] 01/10/2013 12:00 AM Decadron, Per [address] [facility]# [address]-52 Re viewed 01/10/2013 12:00 AM Depo-Medrol, Per [address] [facility]#9402-2438-43 Reviewed 07/05/2013 12:00 AM Prolia, 60 Mg Reviewed 07/20/2013 12:00 AM THER/PROPH/DIAG INJ SC/IM Reviewed 07/20/2013 12:00 AM Depo-Medrol, Per [address] [facility]#2372-2544-27 Reviewed 07/20/2013 12:00 AM Decadron, Per [address] [facility]# [address]-45 Re viewed 05/13/2010 12:00 AM COMPREHEN METABOLIC [...] Reviewed 10/24/2009 12:00 AM Kenalog 40 Mg [facility] 2]#1585-3427-97 Review ed 12/26/2014 12:00 AM Prolia, 60 [...] /HPFTRICHOMONAS NEGATIVE YEAST NEGATIVE 05/22/2016 3:30 PM B633-MqO D pteronyssinus <0. 10 U/hCC362-LfG D farinae <0.10 U/cIM707-LlR Cat Dander <0.10 B034-DqU Dog Dander <0.10 U/pFO168-SjA [place]erm[place] Grass <0.10 U/mMA301-YxB [place] <0.10 U/dGC843-GyE [place] Grass <0.10 U/uSY018-JvG Maple/[place] <0.10 U/rPV011-HkK [place], White <0.10 U/pNM386- IgE Elm, Jordanian <0.10 U/rGD059-TqQ [place] <0.10 U/pUQ967-FxI Merlin, White <0.10 U/oES742-ScN Maple LeafSycamore <0.10 U/nFG274-DyD [place] <0.10 U/wFX013-UoW Milk <0.10 M355-RoJ Wheat <0.10 U/nUG650-AgF [place] <0.10 U/lGA565- IgE Peanut <0.10 U/xAE658-OdS Soybean <0.10 U/vFE461-ClW Pork <0.10 U/dZH522-ByG Beef <0.10 U/gEDX91-ScR Food Mix(Seafoods) Negative Q060-AyG Egg, Whole <0.10 U/gSO870-YfH Chocolate/[place] <0.10 07/21/2016 3:26 PM GLUCOSE 104.0 mg/dLSODIUM [...] Number Start Date Medicare Part A Medicare [facility] [id number] N/A [place] [employer]IX[employer] Insurance Company [facility] Jordanian Life Ins [id number] N/A Medicare Part A ZZZMedicare P A - Preventive [id number] N/A Medicare Part A Medicare - Lab/Xray [id number] N/A BCBS Bcbs [facility] [id number] July 05, 2013 Medicare Part A Medicare Part A [id number] Friday, July 05, 2013 [facility] Jordanian Retriement [id number] N/A Medicare Part B Medicare Of [place] [id number] Friday, July 05, 2013 History of Encounters Visit Date Visit Type Provider 08/05/2016 Office visit Jada Walker VENDING TECHNICIAN 07/21/2016 Office visit Jada Walker VENDING TECHNICIAN 07/10/2016 [facility] Sage Green MD 07/09/2016 Office visit Valorie MCCLURE 05/22/2016 Nurse visit Jada Walker VENDING TECHNICIAN 04/13/2016 Office visit Katharina Murdock APR N 04/04/2016 Nurse visit Jada Walker VENDING TECHNICIAN 03/26/2016 Office visit Jada Walker VENDING TECHNICIAN 02/29/2016 Office visit Jada Walker VENDING TECHNICIAN 01/09/2016 Office visit Jada Walker VENDING TECHNICIAN 11/14/2015 Office visit Jada Walker VENDING TECHNICIAN 07/16/2015 Nurse visit Jada Walker VENDING TECHNICIAN 11/30/2014 Office visit Sharon Villanueva 10/18/2014 Office visit Jada Walker VENDING TECHNICIAN 08/17/2014 Office visit Jaylene Rebolledo MD 06/28/2014 Office visit Jada Walker VENDING TECHNICIAN 06/01/2014 Office visit Sharon Villanueva 04/28/2014 Nurse visit Jada Walker VENDING TECHNICIAN 07/20/2013 Office visit Jada Walker VENDING TECHNICIAN 07/05/2013 Nurse visit Jada Walker VENDING TECHNICIAN 01/10/2013 Office visit Jada Walker VENDING TECHNICIAN 12/29/2012 Nurse visit Jada Walker VENDING TECHNICIAN 06/16/2012 Office visit Jada Walker VENDING TECHNICIAN 05/04/2012 Office visit Jada Walker VENDING TECHNICIAN 03/10/2012 Office visit Jada Walker VENDING TECHNICIAN 03/04/2012 Office visit Jada Walker VENDING TECHNICIAN 01/13/2012 Office visit Ezequiel Mahan MD 01/08/2012 Nurse visit Mikki Carrasco MD 12/16/2011 Voidvelma Mahan MD 11/28/2011 Office visit Ezequiel Mahan MD 10/28/2011 Office visit Jada Pulliam VENDING TECHNICIAN 08/14/2011 Office visit Ezequiel Mahan MD 08/07/2011 Nurse visit Ezequiel Mahan MD 06/03/2011 Office visit Jada Pulliam VENDING TECHNICIAN 05/07/2011 Office visit Ezequiel Mahan MD [...]
--- OUTSIDE RECORDS SUMMARY | 2019-12-14 18:02 | XMS REPORT ---
Author Shandra Porter Organization [facility] Address [address] [place], [place] [address] Care Team Providers Care Music Leader Name Role Phone Jada Pulliam PCP Unavailable Allergies and Adverse Reactions Name Reaction Notes ciprofloxacin migraine codeine sulfate Plan of Treatment Planned Activity Comments Planned Date Planned Time Plan/Goal URINE CULTURE/COLONY COUNT 03/04/2016 12:00 AM URINALYSIS AUTO W/O SCOPE 03/27/2016 12:00 AM lumbar pain 12/17/2015 2:00 PM [...] route once a day (at bedtime) gabapentin 100 mg oral capsule 01/09/2016 04/08/2016 [...] once daily at bedtime for 30 days Bactrim DS 800-160 mg [...] HC BMI BSA BMI Percentile O2 Sat(%) 03/26/2016 3:14:00 PM 138 mmHg 78 mmHg 94 bpm 18 rpm 98.5 F 226.25 lbs 68 i n 34.40 kg/m2 2.22 m2 97 % 02/29/2016 11:28:00 AM 136 mmHg 78 mmHg 95 bpm 18 rpm 100.1 F 227.062 lbs 97 % 01/09/2016 1:53:00 PM 122 mmHg 76 mmHg 87 bpm 18 rpm 97.3 F 227 lbs 68 in 34.5149 kg/m 2.22 m2 97 % 11/14/2015 1:37:00 PM 134 mmHg 72 mmHg 80 bpm 18 rpm 97.3 F 227 lbs 68 in 34.51 kg/m2 2.2226 m 97 % 10/18/2014 11:18:00 AM [...] Returned 02/29/2016 12:00 AM Rocephin 1 gram [facility]#1733-3922-42 Reviewe d 03/26/2016 12:00 AM Benadryl, Up to 50 Mg [facility]# 5647-2309-23 Reviewed 10/29/2011 12:00 AM URINALYSIS AUTO W/O SCOPE Reviewed 10/28/2011 12:00 AM COMPLETE CBC W/AUTO DIFF WBC Returned 10/28/2011 12:00 AM COMPREHEN METABOLIC PANEL Returned 10/28/2011 12:00 AM URINE CULTURE/COLONY COUNT Returned 01/08/2012 12:00 AM THER/PROPH/DIAG INJ SC/IM Reviewed 01/08/2012 12:00 AM Depo-Medrol 40 mg [facility]#[id number] Reviewe d 03/12/2012 12:00 AM URINALYSIS AUTO [...] Mg [facility]# [address]-54 Re viewed 01/10/2013 12:00 AM Depo-Medrol, Per 80 Mg [facility]#8228-9155-51 Reviewed 07/05/2013 12:00 AM Prolia, 60 Mg Reviewed 07/20/2013 12:00 AM THER/PROPH/DIAG INJ SC/IM Reviewed 07/20/2013 12:00 AM Depo-Medrol, Per 80 Mg [facility]#1182-1169-44 Reviewed 07/20/2013 12:00 AM Decadron, Per 1 Mg [facility]# [address]-47 Re viewed 05/13/2010 12:00 AM COMPREHEN METABOLIC [...] Kenalog 40 Mg [facility]#3101-7106-35 Review ed 12/26/2014 12:00 AM Prolia, 60 [...] Not Entered 10/05/2019 10/05/2019 999 Tdap 07/16/2015 [facility] [place] SKB BOOSTRIX [id number] Intramuscula r Right Deltoid [...] 2016 9:53AM Dysuria Mar 27 2016 2:44PM Payers Insurance Name Company Name Plan Name Plan Number Policy Number Sanjay cy Group Number Start Date Medicare Part A Medicare RHC [id number] N/A [facility] Insurance [facility] [place] Life Ins [id number] N/A Medicare Part A Medicare P A - Preventive [id number] N/A Medicare Part A Medicare - Lab/Xray [id number] N/A BCBS Bcbs [facility] [id number] July 05, 2013 Medicare Part A Medicare Part A [id number] Friday, July 05, 2013 [facility] [employer] [facility] Tanzanian Retriement [id number] N/A Medicare Part B Medicare Of [place] [id number] Friday, July 05, 2013 History of Encounters Visit Date Visit Type Provider 03/26/2016 Office visit Jada Pulliam TOY STUFFER 02/29/2016 Office visit Jada Pulliam TOY STUFFER 01/09/2016 Office visit Jada Pulliam TOY STUFFER 11/14/2015 Office visit Jada Pulliam TOY STUFFER 07/16/2015 Nurse visit Jada Pulliam TOY STUFFER 11/30/2014 Office visit Sharon Villanueva 10/18/2014 Office visit Jada Pulliam TOY STUFFER 08/17/2014 Office visit Jaylene Rebolledo MD 06/28/2014 Office visit Jada Pulliam TOY STUFFER 06/01/2014 Office visit Sharon Villanueva 04/28/2014 Nurse visit Jada Pulliam TOY STUFFER 07/20/2013 Office visit Jada Pulliam TOY STUFFER 07/05/2013 Nurse visit Jada Pulliam TOY STUFFER 01/10/2013 Office visit Jada Pulliam TOY STUFFER 12/29/2012 Nurse visit Jada Pulliam TOY STUFFER 06/16/2012 Office visit Jada Pulliam TOY STUFFER 05/04/2012 Office visit Jada Pulliam TOY STUFFER 03/10/2012 Office visit Jada Pulliam TOY STUFFER 03/04/2012 Office visit Jada Pulliam TOY STUFFER 01/13/2012 Office visit Ezequiel Mahan MD 01/08/2012 Nurse visit Mikki Carrasco MD 12/16/2011 Voidvelma Mahan MD 11/28/2011 Office visit Ezequiel Mahan MD 10/28/2011 Office visit Jada Pulliam TOY STUFFER 08/14/2011 Office visit Ezequiel Mahan MD 08/07/2011 Nurse visit Ezequiel Mahan MD 06/03/2011 Office visit Jada Pulliam TOY STUFFER 05/07/2011 Office visit Ezequiel Mahan MD 04/28/2011 [...]
--- OUTSIDE RECORDS SUMMARY | 2019-12-14 18:02 | XMS REPORT ---
Author Author Shandra Rocha Organization [facility] Address [address] [place], [place] [id number] Care Team Providers Care Operations Supervisor Chemical Cleaning Name Role Phone Valorie Rocha PCP Allergies and Adverse Reactions Name Reaction [...] tablet by oral route every 12 hours Lexapro 10 mg oral tablet 06/30/2016 07/30/2016 take 1 tablet (10 mg) by oral route once daily for 30 days Xanax 0.25 mg oral tablet 06/30/2016 Take one tablet daily at needed Name Start Date Expiration Date SIG Comments [...] HC BMI BSA BMI Percentile O2 Sat(%) 07/09/2016 5:16:00 PM 124 mmHg 90 mmHg [...] 02/29/2016 12:00 AM Rocephin 1 gram [facility]#7999-8794-62 Reviewe d 03/27/2016 12:00 AM URNLS DIP STICK/TABLET RGNT AUTO W/O KATHRIN ROSCOPY Returned 03/26/2016 12:00 AM Benadryl, Up to 50 Mg [facility]# 5622-3938-49 Reviewed 04/04/2016 12:00 AM IMMUNOTHERAPY ONE INJECTION Reviewed 04/13/2016 12:00 AM Depo-Medrol, Per 80 Mg [facility]#[address]-88 Reviewed 04/13/2016 12:00 AM Decadron, Per 1 Mg [facility]# [address]-42 Re viewed 04/13/2016 12:00 AM THER/PROPH/DIAG INJ SC/IM Reviewed 10/29/2011 12:00 AM URINALYSIS AUTO W/O SCOPE Reviewed 10/28/2011 12:00 AM COMPLETE CBC W/AUTO DIFF WBC Returned 10/28/2011 12:00 AM COMPREHEN METABOLIC PANEL Returned 10/28/2011 12:00 AM URINE CULTURE/COLONY COUNT Returned 05/22/2016 12:00 AM ALLERGEN SPECIFIC IGE Returned 05/22/2016 12:00 AM Decadron, Per 1 Mg [facility]# [address]-62 Re viewed 05/22/2016 12:00 AM Depo-Medrol 40mg Reviewed 05/22/2016 12:00 AM THER/PROPH/DIAG INJ SC/IM Reviewed 01/08/2012 12:00 AM THER/PROPH/DIAG INJ SC/IM Reviewed 01/08/2012 12:00 AM Depo-Medrol 40 mg [facility]#[id number] Reviewe d 03/12/2012 12:00 AM URINALYSIS AUTO [...] 12:00 AM Decadron, Per 1 Mg [facility]# [address]-15 Re viewed 01/10/2013 12:00 AM Depo-Medrol, Per 80 Mg [facility]#7270-0920-02 Reviewed 07/05/2013 12:00 AM Prolia, 60 Mg Reviewed 07/20/2013 12:00 AM THER/PROPH/DIAG INJ SC/IM Reviewed 07/20/2013 12:00 AM Depo-Medrol, Per 80 Mg [facility]#7184-9410-88 Reviewed 07/20/2013 12:00 AM Decadron, Per 1 Mg [facility]# [address]-85 Re viewed 05/13/2010 12:00 AM COMPREHEN METABOLIC PANEL Reviewed 05/13/2010 12:00 AM LIPID PANEL Reviewed 05/09/2010 12:00 AM GLYCOSYLATED HEMOGLOBIN TEST Reviewed 05/16/2010 12:00 AM COMPREHEN METABOLIC PANEL Reviewed 05/16/2010 12:00 AM LIPID PANEL Reviewed 05/16/2010 12:00 AM VITAMIN D 25 HYDROXY Reviewed 10/15/2010 12:00 AM CHEST X-RAY 2VW FRONTAL&LATL Reviewed 04/28/2014 12:00 AM Prolia, 1 Mg C Medicare Reviewed 06/28/2014 12:00 AM COMPLETE CBC W/AUTO DIFF WBC Returned 06/28/2014 12:00 AM COMPREHEN METABOLIC PANEL Returned 06/28/2014 12:00 AM LIPID PANEL Returned 10/24/2009 12:00 AM THER/PROPH/DIAG INJ SC/IM Reviewed 10/24/2009 12:00 AM Kenalog 40 Mg [facility]#8648-7790-90 Review ed 12/26/2014 12:00 AM Prolia, 60 [...] mg/dLHDL 37.0 mg/dLLDL (CALC) 82.0 mg/dLTSH 2.080 uIU/mL 02/29/2016 10:58 AM COLOR YELLOW APPEARANCE ANTHONY [...] /HPFTRICHOMONAS NEGATIVE YEAST NEGATIVE 05/22/2016 3:30 PM P478-AdD D pteronyssinus <0. 10 U/iTO216-HiC D farinae <0.10 U/dID385-KoG Cat Dander <0.10 Z388-VnK Dog Dander <0.10 U/kHU213-VfA [place] Grass <0.10 U/hMM830-GkD [place], [place] <0.10 U/cSM780-CnZ [place] Grass <0.10 U/sJY179-VoM Maple/[place] <0.10 U/jIF944-WeW [place], White <0.10 U/kIX742- IgE Elm, Gambian <0.10 U/bYM891-WkO [place] <0.10 U/aWV574-PzD Merlin, White <0.10 U/mTI507-KoB Maple LeafSycamore <0.10 U/cMM429-EnK [place] <0.10 U/vSV473-CgJ Milk <0.10 N822-AeC Wheat <0.10 U/mHC158-WuN Brothers <0.10 U/mZG954- IgE Peanut <0.10 U/cGV333-IkO Soybean <0.10 U/bRQ886-WzG Pork <0.10 U/jIV692-NmB Beef <0.10 U/jORP73-ShI Food Mix(Seafoods) Negative C908-SrT Egg, Whole <0.10 U/eKG176-AqI Chocolate/[place] <0.10 History Of Immunizations Name Date Admin Mfg Name Mfg Code Trade Name Lot# Route Inj Vis Given Vis Pub CVX Influenza 07/02/2009 Not Entered NE Not Entered Not Entered Not Entered 10/05/2019 10/05/2019 999 X 04/12/2009 Merck & Co., Inc. MSD Pneumovax 23 Intramus cular Not Entered 10/05/2019 10/05/2019 999 Tdap 07/16/2015 GlaxoSmMangstorKline SKB BOOSTRIX [id number] Intramuscula r Right Deltoid [...] Vomiting and diarrhea Jul 09 2016 5:20PM Payers Insurance Name Company Name Plan Name Plan Number Policy Number Sanjay cy Group Number Start Date Medicare Part A Medicare [facility] [id number] N/A [employer] Company [facility] [place] [employer] [id number] N/A Medicare Part A ZZZMedicare P A - Preventive [id number] N/A Medicare Part A Medicare - Lab/Xray [id number] N/A BCBS Bcbs [facility] [id number] July 05, 2013 Medicare Part A Medicare Part A [id number] Friday, July 05, 2013 [facility] W4 Insurance [address] Gambian Retriement [id number] N/A Medicare Part B Medicare Of [place] [id number] Friday, July 05, 2013 History of Encounters Visit Date Visit Type Provider 07/09/2016 Office visit Valorie MCCLURE 05/22/2016 Nurse visit Jada Walker RIVETER PORTABLE MACHINE 04/13/2016 Office visit Katharina Kumar Mathieu APR N 04/04/2016 Nurse visit Jada Walker RIVETER PORTABLE MACHINE 03/26/2016 Office visit Jada Walker RIVETER PORTABLE MACHINE 02/29/2016 Office visit Jada Walker RIVETER PORTABLE MACHINE 01/09/2016 Office visit Jada Walker RIVETER PORTABLE MACHINE 11/14/2015 Office visit Jada Walker RIVETER PORTABLE MACHINE 07/16/2015 Nurse visit Jada Walker RIVETER PORTABLE MACHINE 11/30/2014 Office visit Sharon Villanueva 10/18/2014 Office visit Jada Walker RIVETER PORTABLE MACHINE 08/17/2014 Office visit Jaylene Rebolledo MD 06/28/2014 Office visit Jada Walker RIVETER PORTABLE MACHINE 06/01/2014 Office visit Sharon Villanueva 04/28/2014 Nurse visit Jada Walker RIVETER PORTABLE MACHINE 07/20/2013 Office visit Jada Walker RIVETER PORTABLE MACHINE 07/05/2013 Nurse visit Jada Walker RIVETER PORTABLE MACHINE 01/10/2013 Office visit Jada Walker RIVETER PORTABLE MACHINE 12/29/2012 Nurse visit Jada Walker RIVETER PORTABLE MACHINE 06/16/2012 Office visit Jada Walker RIVETER PORTABLE MACHINE 05/04/2012 Office visit Jada Walker RIVETER PORTABLE MACHINE 03/10/2012 Office visit Jada Walker RIVETER PORTABLE MACHINE 03/04/2012 Office visit Jada Walker RIVETER PORTABLE MACHINE 01/13/2012 Office visit Ezequiel Mahan MD 01/08/2012 Nurse visit Mikki Carrasco MD 12/16/2011 Voided Ezequiel Mahan MD 11/28/2011 Office visit Ezequiel Mahan MD 10/28/2011 Office visit Jada Pulliam RIVETER PORTABLE MACHINE 08/14/2011 Office visit Ezequiel Mahan MD 08/07/2011 Nurse visit Ezequiel Mahan MD 06/03/2011 Office visit Jada Heraclio RIVETER PORTABLE MACHINE 05/07/2011 Office visit Ezequiel Mahan MD 04/28/2011 [...]
--- OUTSIDE RECORDS SUMMARY | 2019-12-14 18:03 | XMS REPORT ---
Author Author Shandra Dhaliwal Organization [facility] Address [address] [place] [id number] Care Team Providers Care Cleaner Wall Name Role Phone Jessica Dhaliwal PCP Jada Pulliam PreferredProvider Unavailable Allergies and Adverse Reactions Name Reaction Notes ciprofloxacin migraine codeine sulfate Plan of Treatment Planned Activity Comments Planned Date Planned Time Plan/Goal Urine Culture, [place] Count 03/04/2016 12:00 AM lumbar pain 12/17/2015 [...] TABLET BY MOUTH ONCE DAILY AT BEDTIME cyclobenzaprine 10 mg oral tablet 01/09/2016 take [...] per day atorvastatin 40 mg oral tablet 11/03/2016 T KINDRA ONE TABLET BY MOUTH ONCE DAILY AT BEDTIME gabapentin 300 mg oral capsule 11/24/2016 TAKE ONE C APSULE BY MOUTH AT BEDTIME Lipitor 40 mg oral tablet 02/19/2017 11/16/2017 take 1 tablet (40 mg) by oral route once daily at bedtime for 90 days gabapentin 300 mg oral capsule 03/04/2017 TAKE ONE C APSULE BY MOUTH AT BEDTIME Name Start Date Expiration Date [...] 4 mg oral tablets,dose pack 04/13/2016 04/20/20 take as directed for 7 days Lexapro [...] AM Rocephin 1 gram [facility]#0268-4624-54 Reviewe d 03/27/2016 12:00 AM INJECT SPINE LUMBAR/SACRAL Reviewed 03/27/2016 12:00 AM URNLS DIP STICK/TABLET RGNT AUTO W/O KATHRIN ROSCOPY Reviewed 03/26/2016 12:00 AM Benadryl, Up to 50 Mg [facility]# 9819-4854-25 Reviewed 04/04/2016 12:00 AM IMMUNOTHERAPY ONE INJECTION Reviewed 10/29/2011 12:00 AM URINALYSIS AUTO W/O SCOPE Reviewed 10/28/2011 12:00 AM COMPLETE CBC W/AUTO DIFF WBC Reviewed 10/28/2011 12:00 AM COMPREHEN METABOLIC PANEL Reviewed 10/28/2011 12:00 AM URINE CULTURE/COLONY COUNT Reviewed 05/22/2016 12:00 AM ALLERGEN SPECIFIC IGE Reviewed 05/22/2016 12:00 AM Decadron, Per 1 Mg [facility]# [address]-30 Re viewed 05/22/2016 12:00 AM Depo-Medrol 40mg [...] AM Depo-Medrol 40 mg [facility]#[id number] Reviewe d 09/08/2016 12:00 AM METABOLIC PANEL TOTAL CA Reviewed 09/08/2016 12:00 AM COMPLETE CBC W/AUTO DIFF WBC Reviewed 09/08/2016 12:00 AM RADIOLOGIC EXAM CHEST 2 VIEWS FRONTAL&LA TERAL Reviewed 04/13/2016 12:00 AM Depo-Medrol, Per 80 Mg [facility]#[address]-60 Reviewed 04/13/2016 12:00 AM Decadron, Per 1 Mg ND# [address]-62 Re viewed 04/13/2016 12:00 AM THER/PROPH/DIAG INJ [...] 12:00 AM Decadron, Per 1 Mg ND# [address]-33 Re viewed 01/10/2013 12:00 AM Depo-Medrol, Per 80 Mg ND#6531-1242-03 Reviewed 07/05/2013 12:00 AM Prolia, 60 Mg Reviewed 07/20/2013 12:00 AM THER/PROPH/DIAG INJ SC/IM Reviewed 07/20/2013 12:00 AM Depo-Medrol, Per 80 Mg [facility]#3820-3561-06 Reviewed 07/20/2013 12:00 AM Decadron, Per 1 Mg [facility]# [address]-12 Re viewed 05/13/2010 12:00 AM COMPREHEN METABOLIC [...] 12:00 AM Kenalog 40 Mg [facility]#6330-3846-33 Review ed 12/26/2014 12:00 AM Prolia, 60 [...] CULT SET UP? YES 05/22/2016 3:30 PM E727-KgD D pteronyssinus <0. 10 U/pDZ678-TpW D farinae <0.10 U/uTU837-RuW Cat Dander <0.10 R255-ErW Dog Dander <0.10 U/iLK612-ZwC [place] Grass <0.10 U/zOH104-HnV [place] <0.10 U/rMF116-PnK [place] Grass <0.10 U/pRH901-LgG Cockroach,Kazakh <0.10 U617-QyW Penicilliumchrysogen <0.10 Q922-BvU Cladosporiumherbarum <0.10 O052-WeW Aspergillusfumigatus <0.10 I132-YzI Mucor racemosus <0.10 K263-SeJ Alternariaalternata <0.10 J348-JeY Stemphyliumherbarum <0.10 D367-LkY Maple/[place] <0.10 U/uVO274-OkA [place], White <0.10 U/iFN807-DeE Elm, Kazakh <0.10 U/nYI834-KeP [place] <0.10 U/iMG715-LsM Merlin, White <0.10 U/zMG738-DfP Maple LeafSycamore <0.10 U/gFJ207-YkX [place] <0.10 U/dNS289-RcA Ragweed, Short <0.10 D486-AiE [place] <0.10 W009- IgE Plantain,Kyrgyz <0.10 M354-KbR Thistle, Trinidadian <0.10 D127-WqR Pigweed, Common <0.10 G858-MhE Sheep [place] <0.10 U557-EtP Milk <0.10 L284-QfA Wheat <0.10 U/wSH567-BkS [place] <0.10 U/uKF608-EpK Peanut <0.10 U/jCU795-LoU Soybean <0.10 U/mRT713-RjL Pork <0.10 U/xHQ710-RfM Beef <0.10 U/zAQG39-MaD Food Mix(Seafoods) Negative R284-AqH Egg, Whole <0.10 U/bKQ572-TvG Chocolate/[place] <0.10 07/21/2016 3:26 PM GLUCOSE 104.0 mg/dLSODIUM [...] 0.42 #BASO 0.02 MANUAL DIFF NOT IND 10/07/2016 1:15 PM WBC 6.4 RBC 4.66 HGB 13.70 g /dLHCT 42.80 %MCV 92.0 fLMCH 29.40 pgMCHC 32.0 g/dLRDW SD 44 RDW CV 13.10 %MPV 10.30 fLPLT 215 NRBC# 0.00 NRBC% 0.0 %NEUT 59.60 %%LYMP 28.30 %%MONO 6.90 %%EOS 4.70 %%BASO 0.30 %#NEUT 3.82 #LYMP 1.81 #MONO 0.44 #EOS 0.30 #BASO 0.02 MANUAL DIFF NOT IND GLUCOSE 109.0 mg/dLSODIUM 145.0 mmol/LPOTASSIUM 4.10 mmol/LCHLORIDE 109.0 mmol/LCO2 26.0 mmol/LBUN 19.0 mg/dLCREATININE 1.10 mg/dLCALCIUM 9.70 mg/dLAGE 66 GFR NonAA 49 GFR AA 59 eGFR 49 eGFR AA* 59 History Of Immunizations Name Date Admin Mfg Name Mfg Code Trade Name Lot# Route Inj Vis Given Vis Pub CVX Influenza 07/02/2009 Not Entered NE Not Entered Not Entered Not Entered 10/05/2019 10/05/2019 999 X 04/12/2009 Merck & Co., Inc. MSD Pneumovax 23 Intramus cular Not Entered 10/05/2019 10/05/2019 999 Tdap 07/16/2015 [employer] XII SKB BOOSTRIX [id number] Intramuscula r Right Deltoid [...] 2016 11:24AM Osteopenia Apr 13 2017 1:48PM Payers Insurance Name Company Name Plan Name Plan Number Policy Number Sanjay cy Group Number Start Date Medicare RH Medicare C [id number] N/A [facility] hia Kazakh Life Ins [id number] N/A Medicare Part A ZZZMedicare P A - Preventive [id number] N/A Medicare Part A Medicare - Lab/Xray [id number] N/A BCBS Bcbs [facility] [id number] July 05, 2013 Medicare Part A Medicare Part A [id number] Friday, July 05, 2013 [employer] [place] Retriement [id number] N/A Medicare Part B Medicare Of [place] [id number] Friday, July 05, 2013 History of Encounters Visit Date Visit Type Provider 10/07/2016 Hospital Jessica Dhaliwal MD 08/12/2016 Office visit Jada Pulliam INSTRUMENTATION FITTER 08/05/2016 Office visit Jada Pulliam APRN 07/21/2016 Office visit Jada Pulliam INSTRUMENTATION FITTER 07/10/2016 [facility] Sage Green MD 07/09/2016 Office visit Valorie MCCLURE 07/09/2016 [facility] Jessica Dhaliwal MD 05/22/2016 Nurse visit Jada Walker INSTRUMENTATION FITTER 04/13/2016 Office visit Katharina LGuy Murdock APR N 04/04/2016 Nurse visit Jada Walker INSTRUMENTATION FITTER 03/26/2016 Office visit Jada Walker INSTRUMENTATION FITTER 02/29/2016 Office visit Jada Walker INSTRUMENTATION FITTER 01/09/2016 Office visit Jada Walker INSTRUMENTATION FITTER 11/14/2015 Office visit Jada Walker INSTRUMENTATION FITTER 07/16/2015 Nurse visit Jada Walker INSTRUMENTATION FITTER 11/30/2014 Office visit Sharon Villanueva 10/18/2014 Office visit Jada Walker INSTRUMENTATION FITTER 08/17/2014 Office visit Jaylene Rebolledo MD 06/28/2014 Office visit Jada Walker INSTRUMENTATION FITTER 06/01/2014 Office visit Sharon Villanueva 04/28/2014 Nurse visit Jada Walker INSTRUMENTATION FITTER 07/20/2013 Office visit Jada Walker INSTRUMENTATION FITTER 07/05/2013 Nurse visit Jada Walker INSTRUMENTATION FITTER 01/10/2013 Office visit Jada Walker INSTRUMENTATION FITTER 12/29/2012 Nurse visit Jada Walker INSTRUMENTATION FITTER 06/16/2012 Office visit Jada Walker INSTRUMENTATION FITTER 05/04/2012 Office visit Jada Walker INSTRUMENTATION FITTER 03/10/2012 Office visit Jada Walker INSTRUMENTATION FITTER 03/04/2012 Office visit Jada Walker INSTRUMENTATION FITTER 01/13/2012 Office visit Ezequiel Mahan MD 01/08/2012 Nurse visit Mikki Carrasco MD 12/16/2011 Voided Ezequiel Mahan MD 11/28/2011 Office visit Ezequiel Mahan MD 10/28/2011 Office visit Jada Pulliam INSTRUMENTATION FITTER 08/14/2011 Office visit Ezequiel Mahan MD 08/07/2011 Nurse visit Ezequiel Mahan MD 06/03/2011 Office visit Jada Pulliam INSTRUMENTATION FITTER 05/07/2011 Office visit Ezequiel Mahan MD 04/28/2011 [...]
--- OUTSIDE RECORDS SUMMARY | 2019-12-14 18:04 | XMS REPORT ---
Author Shandra Porter Organization [facility] Address [address] [place], [place] [address] Care Team Providers Care Loader Magazine Grinder Name Role Phone Jada Pulliam PCP Unavailable Jada Pulliam PreferredProvider Unavailable Allergies and Adverse Reactions Name Reaction Notes ciprofloxacin migraine codeine sulfate Plan of Treatment Planned Activity Comments Planned Date Planned Time Plan/Goal Urine Culture, [place] Count 03/04/2016 12:00 AM BMP 09/08/2016 12:00 [...] Returned 02/29/2016 12:00 AM Rocephin 1 gram [facility]#6374-8804-34 Reviewe d 03/27/2016 12:00 AM URNLS DIP STICK/TABLET RGNT AUTO W/O KATHRIN ROSCOPY Returned 03/26/2016 12:00 AM Benadryl, Up to 50 Mg [facility]# 3063-6639-92 Reviewed 04/04/2016 12:00 AM IMMUNOTHERAPY ONE INJECTION Reviewed 04/13/2016 12:00 AM Depo-Medrol, Per 80 Mg [facility]#[address]-66 Reviewed 04/13/2016 12:00 AM Decadron, Per 1 Mg [facility]# [address]-12 Re viewed 04/13/2016 12:00 AM THER/PROPH/DIAG INJ SC/IM Reviewed 10/29/2011 12:00 AM URINALYSIS AUTO W/O SCOPE Reviewed 10/28/2011 12:00 AM COMPLETE CBC W/AUTO DIFF WBC Reviewed 10/28/2011 12:00 AM COMPREHEN METABOLIC PANEL Reviewed 10/28/2011 12:00 AM URINE CULTURE/COLONY COUNT Reviewed 05/22/2016 12:00 AM ALLERGEN SPECIFIC IGE Returned 05/22/2016 12:00 AM Decadron, Per 1 Mg [facility]# [address]-00 Re viewed 05/22/2016 12:00 AM Depo-Medrol 40mg [...] AM Depo-Medrol 40 mg [facility]#[id number] Reviewe d 03/12/2012 12:00 AM URINALYSIS AUTO [...] 01/10/2013 12:00 AM Decadron, Per 1 Mg [facility]# [address]-00 Re viewed 01/10/2013 12:00 AM Depo-Medrol, Per 80 Mg [facility]#5929-3796-37 Reviewed 07/05/2013 12:00 AM Prolia, 60 Mg Reviewed 07/20/2013 12:00 AM THER/PROPH/DIAG INJ SC/IM Reviewed 07/20/2013 12:00 AM Depo-Medrol, Per 80 Mg [facility]#9616-3892-64 Reviewed 07/20/2013 12:00 AM Decadron, Per 1 Mg [facility]# [address]-78 Re viewed 05/13/2010 12:00 AM COMPREHEN METABOLIC [...] Kenalog 40 Mg [facility]#7603-2637-49 Review ed 12/26/2014 12:00 AM Prolia, 60 [...] CULT SET UP? YES 05/22/2016 3:30 PM J499-GlK D pteronyssinus <0. 10 U/iBS159-YzF D farinae <0.10 U/rMB444-ZpT Cat Dander <0.10 V551-IoV Dog Dander <0.10 U/iEY382-IkS [place] Grass <0.10 U/hGZ720-VxM Blue[place] <0.10 U/oEK791-YdI [place] Grass <0.10 U/yHN891-GoW Cockroach,Georgian <0.10 L005-AfK Penicilliumchrysogen <0.10 B824-RvY Cladosporiumherbarum <0.10 A288-XoR Aspergillusfumigatus <0.10 E506-BuC Mucor racemosus <0.10 M815-CwY Alternariaalternata <0.10 K711-DxH Stemphyliumherbarum <0.10 V874-BhW Maple/[place] <0.10 U/pQF046-JsR [place], White <0.10 U/wVO577-WrZ Elm, Georgian <0.10 U/hYR416-GmY [place] <0.10 U/oUD395-FdR Merlin, White <0.10 U/sHB674-UcN Maple LeafSycamore <0.10 U/vAW509-LgV [place] <0.10 U/rBQ849-GcJ Ragweed, Short <0.10 S611-CiC [place] <0.10 W009- IgE Plantain,Rwandan <0.10 X046-WhM Thistle, Japanese <0.10 Q841-FrH Pigweed, Common <0.10 B015-MyY Sheep [place] <0.10 U224-OoI Milk <0.10 E490-RlF Wheat <0.10 U/kCC706-ThO [place] <0.10 U/eZW174-VxZ Peanut <0.10 U/kIF566-QjR Soybean <0.10 U/rFN581-MmA Pork <0.10 U/aQR687-WdX Beef <0.10 U/fKTU91-TgO Food Mix(Seafoods) Negative W271-KaI Egg, Whole <0.10 U/jUB873-VtK Chocolate/[place] <0.10 07/21/2016 3:26 PM GLUCOSE 104.0 mg/dLSODIUM [...] Not Entered 10/05/2019 10/05/2019 999 Tdap 07/16/2015 [facility] SKB BOOSTRIX [id number] Intramuscula r Right Deltoid [...] Start Date Medicare Part A Medicare C [id number] N/A [place] [employer] [facility] hia [place] Medical Ins [id number] N/A Medicare Part A ZZZMedicare P A - Preventive [id number] N/A Medicare Part A Medicare - Lab/Xray [id number] N/A BCBS [id number] July 05, 2013 Medicare Part A Medicare Part A [id number] Friday, July 05, 2013 [facility] [place] [employer] [place] Retriement [id number] N/A Medicare Part B Medicare Of [place] [id number] Friday, July 05, 2013 History of Encounters Visit Date Visit Type Provider 08/12/2016 Office visit Jada Pulliam DIRECTOR OF EARLY CHILDHOOD 08/05/2016 Office visit Jada Pulliam DIRECTOR OF EARLY CHILDHOOD 07/21/2016 Office visit Jada Pulliam DIRECTOR OF EARLY CHILDHOOD 07/10/2016 [facility] Sage Green MD 07/09/2016 Office visit Valorie MCCULRE 07/09/2016 [facility] Jessica Dhaliwal MD 05/22/2016 Nurse visit Jada Pulliam DIRECTOR OF EARLY CHILDHOOD 04/13/2016 Office visit Katharina Murdock APR N 04/04/2016 Nurse visit Jaad Pulliam DIRECTOR OF EARLY CHILDHOOD 03/26/2016 Office visit Jada Pulliam DIRECTOR OF EARLY CHILDHOOD 02/29/2016 Office visit Jada Pulliam DIRECTOR OF EARLY CHILDHOOD 01/09/2016 Office visit Jada Pulliam DIRECTOR OF EARLY CHILDHOOD 11/14/2015 Office visit Jada Pulliam DIRECTOR OF EARLY CHILDHOOD 07/16/2015 Nurse visit Jada Pulliam DIRECTOR OF EARLY CHILDHOOD 11/30/2014 Office visit Sharon Villanueva 10/18/2014 Office visit Jada Pulliam DIRECTOR OF EARLY CHILDHOOD 08/17/2014 Office visit aJylene Rebolledo MD 06/28/2014 Office visit Jada Pulliam DIRECTOR OF EARLY CHILDHOOD 06/01/2014 Office visit Sharon Villanueva 04/28/2014 Nurse visit Jada Pulliam DIRECTOR OF EARLY CHILDHOOD 07/20/2013 Office visit Jada Pulliam DIRECTOR OF EARLY CHILDHOOD 07/05/2013 Nurse visit Jada Pulliam DIRECTOR OF EARLY CHILDHOOD 01/10/2013 Office visit Jada Pulliam DIRECTOR OF EARLY CHILDHOOD 12/29/2012 Nurse visit Jada Walker DIRECTOR OF EARLY CHILDHOOD 06/16/2012 Office visit Jada Pulliam DIRECTOR OF EARLY CHILDHOOD 05/04/2012 Office visit Jada Pulliam DIRECTOR OF EARLY CHILDHOOD 03/10/2012 Office visit Jada Pulliam DIRECTOR OF EARLY CHILDHOOD 03/04/2012 Office visit Jada Pulliam DIRECTOR OF EARLY CHILDHOOD 01/13/2012 Office visit Ezequiel Mahan MD 01/08/2012 Nurse visit Mikki Carrasco MD 12/16/2011 Voided Ezequiel Mahan MD 11/28/2011 Office visit Ezequiel Mahan MD 10/28/2011 Office visit Jada Pulliam DIRECTOR OF EARLY CHILDHOOD 08/14/2011 Office visit Ezequiel Mahan MD 08/07/2011 Nurse visit Ezequiel Mahan MD 06/03/2011 Office visit Jada Pulliam DIRECTOR OF EARLY CHILDHOOD 05/07/2011 Office visit Ezequiel Mahan MD 04/28/2011 [...]
--- OUTSIDE RECORDS SUMMARY | 2019-12-14 18:04 | XMS REPORT ---
Author Shandra oPrter Organization [facility] Address [address] [place], [place] [address] Care Team Providers Care Search Strategist Name Role Phone Jada Pulliam PCP Unavailable [...] Returned 02/29/2016 12:00 AM Rocephin 1 gram [facility]#2341-4024-52 Reviewe d 03/27/2016 12:00 AM URNLS DIP STICK/TABLET RGNT AUTO W/O KATHRIN ROSCOPY Returned 03/26/2016 12:00 AM Benadryl, Up to 50 Mg [facility]# 4934-2382-56 Reviewed 04/04/2016 12:00 AM IMMUNOTHERAPY ONE INJECTION Reviewed 04/13/2016 12:00 AM Depo-Medrol, Per 80 Mg [facility]#[address]-73 Reviewed 04/13/2016 12:00 AM Decadron, Per 1 Mg [facility]# [address]-77 Re viewed 04/13/2016 12:00 AM THER/PROPH/DIAG INJ SC/IM Reviewed 10/29/2011 12:00 AM URINALYSIS AUTO W/O SCOPE Reviewed 10/28/2011 12:00 AM COMPLETE CBC W/AUTO DIFF WBC Returned 10/28/2011 12:00 AM COMPREHEN METABOLIC PANEL Returned 10/28/2011 12:00 AM URINE CULTURE/COLONY COUNT Returned 05/22/2016 12:00 AM ALLERGEN SPECIFIC IGE Returned 05/22/2016 12:00 AM Decadron, Per 1 Mg [facility]# [address]-80 Re viewed 05/22/2016 12:00 AM Depo-Medrol 40mg Reviewed 05/22/2016 12:00 AM THER/PROPH/DIAG INJ SC/IM Reviewed 07/21/2016 12:00 AM METABOLIC PANEL TOTAL CA Returned 07/21/2016 12:00 AM COMPLETE CBC W/AUTO DIFF WBC Returned 08/05/2016 12:00 AM CYTOPATH C/V THIN LAYER Reviewed 01/08/2012 12:00 AM THER/PROPH/DIAG INJ SC/IM Reviewed 01/08/2012 12:00 AM Depo-Medrol 40 mg [facility]#[id number] Reviewe d 03/12/2012 12:00 AM URINALYSIS AUTO [...] 01/10/2013 12:00 AM Decadron, Per 1 Mg [facility]# [address]-17 Re viewed 01/10/2013 12:00 AM Depo-Medrol, Per 80 Mg [facility]#6755-6648-57 Reviewed 07/05/2013 12:00 AM Prolia, 60 Mg Reviewed 07/20/2013 12:00 AM THER/PROPH/DIAG INJ SC/IM Reviewed 07/20/2013 12:00 AM Depo-Medrol, Per 80 Mg [facility]#2558-8511-93 Reviewed 07/20/2013 12:00 AM Decadron, Per 1 Mg [facility]# [address]-12 Re viewed 05/13/2010 12:00 AM COMPREHEN METABOLIC [...] 10/24/2009 12:00 AM Kenalog 40 Mg [facility]#5619-5617-53 Review ed 12/26/2014 12:00 AM Prolia, 60 [...] /HPFTRICHOMONAS NEGATIVE YEAST NEGATIVE 05/22/2016 3:30 PM M924-RxI D pteronyssinus <0. 10 U/tLH677-XfN D farinae <0.10 U/xTM092-WaK Cat Dander <0.10 C989-VlC Dog Dander <0.10 U/cAW683-KxG [place] Grass <0.10 U/uNS958-BjS [place] <0.10 U/rTT444-PqI [place] Grass <0.10 U/yNQ659-KzN Maple/[place] <0.10 U/kFJ618-WiV [place], [place] <0.10 U/zGW090- IgE [place], [place] <0.10 U/cFI288-DeJ [place] <0.10 U/iIY655-CvH [place], [place] <0.10 U/lWX477-DjO Maple LeafSycamore <0.10 U/xJH015-WrP [place] <0.10 U/qHY173-XaH Milk <0.10 J163-GlQ Wheat <0.10 U/jDM753-RnN [place] <0.10 U/bHA124- IgE Peanut <0.10 U/rTS202-UxV Soybean <0.10 U/vTT066-QjV Pork <0.10 U/uMH130-CkX Beef <0.10 U/qIZG10-TfN Food Mix(Seafoods) Negative P189-PeC Egg, Whole <0.10 U/pXM370-ZhD Chocolate/[place] <0.10 07/21/2016 3:26 PM GLUCOSE 104.0 mg/dLSODIUM [...] Number Start Date Medicare Part A Medicare [facility] [id number] N/A [employer] [facility] [place] Life [place] [id number] N/A Medicare Part A ZZZMedicare P A - Preventive [id number] N/A Medicare Part A Medicare - Lab/Xray [id number] N/A BCBS Bcbs [facility] [id number] July 05, 2013 Medicare Part A Medicare Part A [id number] Friday, July 05, 2013 [facility] [place]riement [id number] N/A Medicare Part B Medicare Of [place] [id number] Friday, July 05, 2013 History of Encounters Visit Date Visit Type Provider 08/05/2016 Office visit Jada Walker FOOD CROPS FARM HAND 07/21/2016 Office visit Jada Walker FOOD CROPS FARM HAND 07/10/2016 [facility] Sage Green MD 07/09/2016 Office visit Valorie MCCLURE 05/22/2016 Nurse visit Jada Walker FOOD CROPS FARM HAND 04/13/2016 Office visit Katharina Murdock APR N 04/04/2016 Nurse visit Jada Walker FOOD CROPS FARM HAND 03/26/2016 Office visit Jada Walker FOOD CROPS FARM HAND 02/29/2016 Office visit Jada Walker FOOD CROPS FARM HAND 01/09/2016 Office visit Jada Walker FOOD CROPS FARM HAND 11/14/2015 Office visit Jada Walker FOOD CROPS FARM HAND 07/16/2015 Nurse visit Jada Walker FOOD CROPS FARM HAND 11/30/2014 Office visit Sharon Villanueva 10/18/2014 Office visit Jada Walker FOOD CROPS FARM HAND 08/17/2014 Office visit Jaylene Rebolledo MD 06/28/2014 Office visit Jada Walker FOOD CROPS FARM HAND 06/01/2014 Office visit Sharon Villanueva 04/28/2014 Nurse visit Jada Walker FOOD CROPS FARM HAND 07/20/2013 Office visit Jada Walker FOOD CROPS FARM HAND 07/05/2013 Nurse visit Jada Walker FOOD CROPS FARM HAND 01/10/2013 Office visit Jada Walker FOOD CROPS FARM HAND 12/29/2012 Nurse visit Jada Walker FOOD CROPS FARM HAND 06/16/2012 Office visit Jada Walker FOOD CROPS FARM HAND 05/04/2012 Office visit Jada Walker FOOD CROPS FARM HAND 03/10/2012 Office visit Jada Walker FOOD CROPS FARM HAND 03/04/2012 Office visit Jada Walker FOOD CROPS FARM HAND 01/13/2012 Office visit Ezequiel Mahan MD 01/08/2012 Nurse visit Mikki Carrasco MD 12/16/2011 Voidvelma Mahan MD 11/28/2011 Office visit Ezequiel Mahan MD 10/28/2011 Office visit Jada Pulliam FOOD CROPS FARM HAND 08/14/2011 Office visit Ezequiel Mahan MD 08/07/2011 Nurse visit Ezequiel Mahan MD 06/03/2011 Office visit Jada Pulliam FOOD CROPS FARM HAND 05/07/2011 Office visit Ezequiel Mahan MD 04/28/2011 [...]
--- OUTSIDE RECORDS SUMMARY | 2019-12-14 18:05 | XMS REPORT ---
Author Shandra Porter Organization [facility] Address [address] [place], [place] [address] Care Team Providers Care Checkout Supervisor Name Role Phone Jada Pulliam PCP Unavailable [...] by oral route 2 times per day Bactrim DS 800-160 mg oral tablet 03/28/2016 04/04/2016 take 1 tablet by oral route 2 times per day for 7 days Augmentin 875-125 mg oral tablet 03/31/2016 take [...] AM Rocephin 1 gram [facility]#6020-6735-86 Reviewe d 03/27/2016 12:00 AM URNLS DIP STICK/TABLET RGNT AUTO W/O KATHRIN ROSCOPY Returned 03/26/2016 12:00 AM Benadryl, Up to 50 Mg [facility]# 0497-9734-65 Reviewed 10/29/2011 12:00 AM URINALYSIS AUTO W/O SCOPE Reviewed 10/28/2011 12:00 AM COMPLETE CBC W/AUTO DIFF WBC Returned 10/28/2011 12:00 AM COMPREHEN METABOLIC PANEL Returned 10/28/2011 12:00 AM URINE CULTURE/COLONY COUNT Returned 01/08/2012 12:00 AM THER/PROPH/DIAG INJ SC/IM Reviewed 01/08/2012 12:00 AM Depo-Medrol 40 mg [facility]#[id number] Reviewe d 03/12/2012 12:00 AM URINALYSIS AUTO [...] Per 1 Mg [facility]# [address]-52 Re viewed 01/10/2013 12:00 AM Depo-Medrol, Per 80 Mg [facility]#6932-2364-32 Reviewed 07/05/2013 12:00 AM Prolia, 60 Mg Reviewed 07/20/2013 12:00 AM THER/PROPH/DIAG INJ SC/IM Reviewed 07/20/2013 12:00 AM Depo-Medrol, Per 80 Mg [facility]#0395-1752-68 Reviewed 07/20/2013 12:00 AM Decadron, Per 1 Mg [facility]# [address]-93 Re viewed 05/13/2010 12:00 AM COMPREHEN METABOLIC [...] 10/24/2009 12:00 AM Kenalog 40 Mg [facility]#9479-7882-01 Review ed 12/26/2014 12:00 AM Prolia, 60 [...] 2016 2:44PM Urticaria Mar 26 2016 3:17PM Payers Insurance Name Company Name Plan Name Plan Number Policy Number Sanjay cy Group Number Start Date Medicare Part A Medicare RHC [id number] N/A [place] [employer] [facility] [employer] Ins [id number] N/A Medicare Part A Medicare P A - Preventive [id number] N/A Medicare Part A Medicare - Lab/Xray [id number] N/A BCBS Bcbs [facility] [id number] July 05, 2013 Medicare Part A Medicare Part A [id number] Friday, July 05, 2013 [facility] [employer] [place] Retriement [id number] N/A Medicare Part B Medicare Of [place] [id number] Friday, July 05, 2013 History of Encounters Visit Date Visit Type Provider 03/26/2016 Office visit Jada Pulliam APRN 02/29/2016 Office visit Jada Pulliam BARREL BUILDER 01/09/2016 Office visit Jada Pulliam BARREL BUILDER 11/14/2015 Office visit Jada Pulliam BARREL BUILDER 07/16/2015 Nurse visit Jada Pulliam APRN 11/30/2014 Office visit Sharon Villanueva 10/18/2014 Office visit Jada Pulliam BARREL BUILDER 08/17/2014 Office visit Jaylene Rebolledo MD 06/28/2014 Office visit Jada Pulliam BARREL BUILDER 06/01/2014 Office visit Sharon Villanueva 04/28/2014 Nurse visit Jada Pulliam APRN 07/20/2013 Office visit Jada Pulliam APRN 07/05/2013 Nurse visit Jada Pulliam APRN 01/10/2013 Office visit Jada Pulliam APRN 12/29/2012 Nurse visit Jada Pulliam APRN 06/16/2012 Office visit Jada Pulliam APRN 05/04/2012 Office visit Jada Pulliam BARREL BUILDER 03/10/2012 Office visit Jada Pulliam BARREL BUILDER 03/04/2012 Office visit Jada Pulliam BARREL BUILDER 01/13/2012 Office visit Ezequiel Mahan MD 01/08/2012 Nurse visit Mikki Carrasco MD 12/16/2011 Voided Ezequiel Mahan MD 11/28/2011 Office visit Ezequiel Mahan MD 10/28/2011 Office visit Jada Pulliam BARREL BUILDER 08/14/2011 Office visit Ezequiel Mahan MD 08/07/2011 Nurse visit Ezequiel Mahan MD 06/03/2011 Office visit Jada Pulliam BARREL BUILDER 05/07/2011 Office visit Ezequiel Mahan MD 04/28/2011 Voided Ezequiel Mahan MD 11/18/2010 Office visit Braydon Ramirez DO 11/07/2010 Office visit Braydon Ramirez DO 10/15/2010 Office visit Braydon Ramirez DO 08/27/2010 Office visit Hillary WEST 05/16/2010 Office visit Braydon Ramirez DO 12/05/2009 Office visit Braydon Ramirez DO 11/07/2009 Office visit Bradyon Ramirez DO 10/24/2009 Office visit Braydon Ramirez DO 08/16/2009 Office visit Braydon Ramirez DO 08/15/2009 Laboratory Braydon Ramirez DO 07/02/2009 Office visit Braydon Ramirez DO
--- OUTSIDE RECORDS SUMMARY | 2019-12-14 18:05 | XMS REPORT ---
Author Shandra Porter Organization [facility] Address [address] [place], [place] [address] Care Team Providers Care Guide Escort Name Role Phone Jada Pulliam PCP Unavailable Allergies and Adverse Reactions Name Reaction Notes ciprofloxacin migraine codeine sulfate Plan of Treatment Planned Activity Comments Planned Date Planned Time Plan/Goal MRI LUMBAR SPINE W/O DYE 11/14/2015 12:00 AM GLYCOSYLATED HEMOGLOBIN TEST 11/15/2015 12:00 AM lumbar pain 12/17/2015 2:00 PM [...] gabapentin 100 mg oral capsule 10/18/2014 t trista 1 capsule BID, morning, mid day Lortab [...] AT BEDTIME Lipitor 40 mg oral tablet 10/23/2015 11/22/2015 take 1 tablet (40 mg) by oral route once daily at bedtime for 30 days gabapentin 100 mg oral capsule 11/14/2015 T TRISTA ONE CAPSULE BY MOUTH TWICE DAILY, IN THE MORNING AND MID-DAY gabapentin 300 mg oral capsule 11/14/2015 TAKE ONE C APSULE BY MOUTH AT BEDTIME phentermine 37.5 mg oral tablet 11/14/2015 take 1 tablet (37.5 mg) by oral route once daily before breakfast Name Start Date Expiration Date SIG Comments [...] oral route once daily for 4 days Discontinued Name Start Date Discontinued Date [...] oral route every 6 hours as needed Problem List Description Status Onset Allergic rhinitis [...] HC BMI BSA BMI Percentile O2 Sat(%) 11/14/2015 1:37:00 PM 134 mmHg 72 mmHg [...] 12:00 AM ASSAY THYROID STIM HORMONE Returned 08/07/2011 12:00 AM THER/PROPH/DIAG INJ SC/IM Reviewed 08/07/2011 12:00 AM Solu-Medrol 125 Mg Reviewed 10/29/2011 12:00 AM URINALYSIS AUTO W/O SCOPE Reviewed 10/28/2011 12:00 AM COMPLETE CBC W/AUTO DIFF WBC Returned 10/28/2011 12:00 AM COMPREHEN METABOLIC PANEL Returned 10/28/2011 12:00 AM URINE CULTURE/COLONY COUNT Returned 01/08/2012 12:00 AM THER/PROPH/DIAG INJ SC/IM Reviewed 01/08/2012 12:00 AM Depo-Medrol [address] [facility]#[id number] Reviewe d 03/12/2012 12:00 AM URINALYSIS AUTO [...] 01/10/2013 12:00 AM Decadron, Per [address] [facility]# [address]-63 Re viewed 01/10/2013 12:00 AM Depo-Medrol, Per [address] [facility]#5987-6200-78 Reviewed 07/05/2013 12:00 AM Prolia, 60 Mg Reviewed 07/20/2013 12:00 AM THER/PROPH/DIAG INJ SC/IM Reviewed 07/20/2013 12:00 AM Depo-Medrol, Per [address] [facility]#3848-2106-97 Reviewed 07/20/2013 12:00 AM Decadron, Per [address] [facility]# [address]-45 Re viewed 05/13/2010 12:00 AM COMPREHEN METABOLIC [...] Reviewed 10/24/2009 12:00 AM Kenalog 40 Mg [facility]#2736-9553-04 Review ed 12/26/2014 12:00 AM Prolia, 60 [...] Int ramuscular Not Entered 10/05/2019 10/05/2019 999 Tdap 07/16/2015 [employer] SKB BOOSTRIX [id number] Intramuscula r Right Deltoid [...] 1:39PM Elevated glucose Nov 15 2015 1:32PM Payers Insurance Name Company Name Plan Name Plan Number Policy Number Sanjay cy Group Number Start Date Medicare Part A Medicare Part A [id number] Friday, 2013 [place] [employer] Where I[facility] Been [facility] hia [place] Life Ins [id number] N/A Medicare Part A Medicare P A - Preventive [id number] N/A [facility] [place] Life [place] Retriement [id number] N/A Medicare Part B Medicare [facility] [id number] Friday, 2013 BCBS Bcbs [facility] [id number] 2013 History of Encounters Visit Date Visit Type Provider 11/14/2015 Office visit Jada Pulliam APRN 07/16/2015 Nurse visit Jada Pulliam ASSOCIATE PROFESSOR OF RADIOLOGY 11/30/2014 Office visit Sharon Villanueva 10/18/2014 Office visit Jada Pulliam ASSOCIATE PROFESSOR OF RADIOLOGY 08/17/2014 Office visit Jaylene Rebolledo MD 06/28/2014 Office visit Jada Pulliam ASSOCIATE PROFESSOR OF RADIOLOGY 06/01/2014 Office visit Sharon Villanueva 04/28/2014 Nurse visit Jada Pulliam ASSOCIATE PROFESSOR OF RADIOLOGY 07/20/2013 Office visit Jada Pulliam ASSOCIATE PROFESSOR OF RADIOLOGY 07/05/2013 Nurse visit Jada Pulliam ASSOCIATE PROFESSOR OF RADIOLOGY 01/10/2013 Office visit Jada Pulliam APRN 12/29/2012 Nurse visit Jada Pulliam APRN 06/16/2012 Office visit Jada Pulliam APRN 05/04/2012 Office visit Jada Pulliam APRN 03/10/2012 Office visit Jada Pulliam ASSOCIATE PROFESSOR OF RADIOLOGY 03/04/2012 Office visit Jada Pulliam ASSOCIATE PROFESSOR OF RADIOLOGY 01/13/2012 Office visit Ezequiel Mahan MD 01/08/2012 [...]
--- OUTSIDE RECORDS SUMMARY | 2019-12-14 18:06 | XMS REPORT ---
Author Author Shandra Bustillos Organization [facility] Address [address] [place] [address] Care Team Providers Care Orchard Worker Name Role Phone Sharon Bustillos PCP Allergies [...] 01/08/2012 12:00 AM Depo-Medrol 40 mg [facility]#[id number] Reviewe d 03/12/2012 12:00 AM URINALYSIS AUTO [...] 12:00 AM Decadron, Per 1 Mg [facility]# [address]-07 Re viewed 01/10/2013 12:00 AM Depo-Medrol, Per 80 Mg [facility]#7366-9477-79 Reviewed 07/05/2013 12:00 AM Prolia, 60 Mg Reviewed 07/20/2013 12:00 AM THER/PROPH/DIAG INJ SC/IM Reviewed 07/20/2013 12:00 AM Depo-Medrol, Per 80 Mg [facility]#6460-5330-56 Reviewed 07/20/2013 12:00 AM Decadron, Per 1 Mg [facility]# [address]-15 Re viewed 05/13/2010 12:00 AM COMPREHEN METABOLIC [...] AM Kenalog 40 Mg [facility]#9708-2629-38 Review ed 12/26/2014 12:00 AM Prolia, 60 [...] Number Start Date Medicare Part B Medicare [facility] [id number] Friday, 2013 [place] [employer] [facility] hia [place] Life Ins [id number] N/A Medicare Part A Medicare P A - Preventive [id number] N/A Bcbs Bcbs [facility] [id number] 2013 Medicare Part A Medicare Part A [id number] Friday, 2013 [facility] [employer] [place] Retriement [id number] N/A History of Encounters Visit Date Visit Type Provider 11/30/2014 Office visit Sharon Villanueva 10/18/2014 Office visit Jada Pulliam PARIMUTUEL CLERK 08/17/2014 Office visit Jaylene Rebolledo MD 06/28/2014 Office visit Jada Pulliam PARIMUTUEL CLERK 06/01/2014 Office visit Sharon Villanueva 04/28/2014 Nurse visit Jada Pulliam PARIMUTUEL CLERK 07/20/2013 Office visit Jada Pulliam PARIMUTUEL CLERK 07/05/2013 Nurse visit Jada Pulliam PARIMUTUEL CLERK 01/10/2013 Office visit Jada Pulliam PARIMUTUEL CLERK 12/29/2012 Nurse visit Jada Pulliam PARIMUTUEL CLERK 06/16/2012 Office visit Jada Pulliam PARIMUTUEL CLERK 05/04/2012 Office visit Jada Pulliam PARIMUTUEL CLERK 03/10/2012 Office visit Jada Pulliam PARIMUTUEL CLERK 03/04/2012 Office visit Jada Pulliam PARIMUTUEL CLERK 01/13/2012 Office visit Ezequiel Mahan MD 01/08/2012 Nurse visit Mikki Carrasco MD 12/16/2011 Voided Ezequiel Mahan MD 11/28/2011 Office visit Ezequiel Mahan MD 10/28/2011 Office visit Jada Pulliam PARIMUTUEL CLERK 08/14/2011 Office visit Ezequiel Mahan MD 08/07/2011 [...]
--- OUTSIDE RECORDS SUMMARY | 2019-12-14 18:06 | XMS REPORT ---
Author Shandra Porter Organization [facility] Address [address] [place], [place] [address] Care Team Providers Care Tail Edger Name Role Phone Jada Pulliam PCP Unavailable [...] Rocephin 1 gram [facility]#7650-3648-57 Reviewe d 03/27/2016 12:00 AM URNLS DIP STICK/TABLET RGNT AUTO W/O KATHRIN ROSCOPY Returned 03/26/2016 12:00 AM Benadryl, Up to 50 Mg [facility]# 6789-2331-80 Reviewed 10/29/2011 12:00 AM URINALYSIS AUTO W/O SCOPE Reviewed 10/28/2011 12:00 AM COMPLETE CBC W/AUTO DIFF WBC Returned 10/28/2011 12:00 AM COMPREHEN METABOLIC PANEL Returned 10/28/2011 12:00 AM URINE CULTURE/COLONY COUNT Returned 01/08/2012 12:00 AM THER/PROPH/DIAG INJ SC/IM Reviewed 01/08/2012 12:00 AM Depo-Medrol 40 mg [facility]#[id number] Reviewe d 03/12/2012 12:00 AM URINALYSIS AUTO [...] 1 Mg [facility]# [address]-37 Re viewed 01/10/2013 12:00 AM Depo-Medrol, Per 80 Mg [facility]#2910-6771-64 Reviewed 07/05/2013 12:00 AM Prolia, 60 Mg Reviewed 07/20/2013 12:00 AM THER/PROPH/DIAG INJ SC/IM Reviewed 07/20/2013 12:00 AM Depo-Medrol, Per 80 Mg [facility]#1919-4243-00 Reviewed 07/20/2013 12:00 AM Decadron, Per 1 Mg [facility]# [address]-03 Re viewed 05/13/2010 12:00 AM COMPREHEN METABOLIC [...] 10/24/2009 12:00 AM Kenalog 40 Mg [facility]#4298-9508-59 Review ed 12/26/2014 12:00 AM Prolia, 60 [...] Not Entered 10/05/2019 10/05/2019 999 Tdap 07/16/2015 [employer] SKB BOOSTRIX H9P57 Intramuscula r Right Deltoid [...] Start Date Medicare Part A Medicare RHC [id number] N/A [place] [employer] Insurance [facility] hia [place] Life Ins [id number] N/A Medicare Part A Medicare P A - Preventive [id number] N/A Medicare Part A Medicare - Lab/Xray [id number] N/A BCBS Bcbs [facility] [id number] July 05, 2013 Medicare Part A Medicare Part A [id number] Friday, July 05, 2013 [facility] [employer] [facility] [place] Retriement [id number] N/A Medicare Part B Medicare [facility] [id number] Friday, July 05, 2013 History of Encounters Visit Date Visit Type Provider 03/26/2016 Office visit Jada Pulliam DRILLER AND REAMER 02/29/2016 Office visit Jada Pulliam DRILLER AND REAMER 01/09/2016 Office visit Jada Pulliam DRILLER AND REAMER 11/14/2015 Office visit Jada Pulliam DRILLER AND REAMER 07/16/2015 Nurse visit Jada Pulliam DRILLER AND REAMER 11/30/2014 Office visit Sharon Villanueva 10/18/2014 Office visit Jada Pulliam DRILLER AND REAMER 08/17/2014 Office visit Jaylene Rebolledo MD 06/28/2014 Office visit Jada Pulliam DRILLER AND REAMER 06/01/2014 Office visit Sharon Villanueva 04/28/2014 Nurse visit Jada Pulliam DRILLER AND REAMER 07/20/2013 Office visit Jada Pulliam DRILLER AND REAMER 07/05/2013 Nurse visit Jada Pulliam DRILLER AND REAMER 01/10/2013 Office visit Jada uPlliam DRILLER AND REAMER 12/29/2012 Nurse visit Jada Pulliam DRILLER AND REAMER 06/16/2012 Office visit Jada Pulliam DRILLER AND REAMER 05/04/2012 Office visit Jada Pulliam DRILLER AND REAMER 03/10/2012 Office visit Jada Pulliam DRILLER AND REAMER 03/04/2012 Office visit Jada Pulliam DRILLER AND REAMER 01/13/2012 Office visit Ezequiel Mahan MD 01/08/2012 Nurse visit Mikki Carrasco MD 12/16/2011 Voided Ezequiel Mahan MD 11/28/2011 Office visit Ezequiel Mahan MD 10/28/2011 Office visit Jada Pulliam DRILLER AND REAMER 08/14/2011 Office visit Ezequiel Mahan MD 08/07/2011 [...]
--- OUTSIDE RECORDS SUMMARY | 2019-12-14 18:07 | XMS REPORT ---
Author Shandra Porter Organization [facility] Address [address] [place], [place] [address] Care Team Providers Care Meter Reader Chief Name Role Phone Jada Pulliam PCP Jada Pulliam PreferredProvider Allergies and Adverse Reactions Name Reaction Notes ciprofloxacin migraine codeine sulfate Plan of Treatment Planned Activity Comments Planned Date Planned Time Plan/Goal Urine Culture, [place] Count 03/04/2016 12:00 AM CBC With Auto Differential 10/06/2017 12:00 AM CMP (comprehensive metabolic panel) 10/06/2017 12:00 AM .Lipid Panel 10/06/2017 12:00 AM TSH 10/06/2017 12:00 AM lumbar pain 12/17/2015 2:00 PM [...] 1 cap eliane by oral route daily Retin-A 0.025 % topical cream 06/18/2015 ap ply to the affected area(s) by topical route once daily at bedtime tretinoin 0.025 % topical cream 01/10/2016 APPLY CREAM TO AFFECTED AREA ONCE DAILY AT BEDTIME gabapentin 300 mg oral capsule 11/24/2016 TAKE ONE C APSULE BY MOUTH AT BEDTIME atorvastatin 40 mg oral tablet 10/06/2017 T KINDRA ONE TABLET BY MOUTH ONCE DAILY AT BEDTIME diclofenac sodium 75 mg oral [...] HC BMI BSA BMI Percentile O2 Sat(%) 10/06/2017 1:26:00 PM 130 mmHg 78 mmHg [...] gram [facility]#9704-2571-09 Reviewe d 03/27/2016 12:00 AM INJECT SPINE LUMBAR/SACRAL Reviewed 03/27/2016 12:00 AM URNLS DIP STICK/TABLET RGNT AUTO W/O KATHRIN ROSCOPY Reviewed 03/26/2016 12:00 AM Benadryl, Up to 50 Mg [facility]# 0476-3998-26 Reviewed 04/04/2016 12:00 AM IMMUNOTHERAPY ONE INJECTION Reviewed 10/29/2011 12:00 AM URINALYSIS AUTO W/O SCOPE Reviewed 10/28/2011 12:00 AM COMPLETE CBC W/AUTO DIFF WBC Reviewed 10/28/2011 12:00 AM COMPREHEN METABOLIC PANEL Reviewed 10/28/2011 12:00 AM URINE CULTURE/COLONY COUNT Reviewed 05/22/2016 12:00 AM ALLERGEN SPECIFIC IGE Reviewed 05/22/2016 12:00 AM Decadron, Per 1 Mg [facility]# [address]-53 Re viewed 05/22/2016 12:00 AM Depo-Medrol 40mg [...] Reviewed 01/08/2012 12:00 AM Depo-Medrol 40 mg ND#[id number] Reviewe d 09/08/2016 12:00 AM METABOLIC PANEL TOTAL CA Reviewed 09/08/2016 12:00 AM COMPLETE CBC W/AUTO DIFF WBC Reviewed 09/08/2016 12:00 AM RADIOLOGIC EXAM CHEST 2 VIEWS FRONTAL&LA TERAL Reviewed 04/13/2016 12:00 AM Depo-Medrol, Per 80 Mg NDC#[address]-40 Reviewed 04/13/2016 12:00 AM Decadron, Per 1 Mg ND# [address]-65 Re viewed 04/13/2016 12:00 AM THER/PROPH/DIAG INJ [...] 12:00 AM Decadron, Per 1 Mg NDC# [address]-37 Re viewed 01/10/2013 12:00 AM Depo-Medrol, Per 80 Mg ND#9998-9677-15 Reviewed 07/05/2013 12:00 AM Prolia, 60 Mg Reviewed 07/20/2013 12:00 AM THER/PROPH/DIAG INJ SC/IM Reviewed 07/20/2013 12:00 AM Depo-Medrol, Per 80 Mg [facility]#0321-2980-12 Reviewed 07/20/2013 12:00 AM Decadron, Per 1 Mg [facility]# [address]-28 Re viewed 05/13/2010 12:00 AM COMPREHEN METABOLIC [...] Reviewed 10/24/2009 12:00 AM Kenalog 40 Mg [facility]#6783-6788-16 Review ed 12/26/2014 12:00 AM Prolia, 60 Mg Reviewed 11/07/2009 12:00 AM CHEST X-RAY 2VW FRONTAL&LATL Reviewed Results Summary Date and Description Results 05/10/2010 8:35 AM TRIGLYCERIDES 245.0 mg/dLCHO LESTEROL 189.0 mg/dLHDL 37.0 mg/dLTOT CHOL/HDL 5.1 LDL (CALC) 103.0 mg/dLGLYCOHEMOGLOBIN A1C 6.10 %GLUCOSE 106.0 mg/dLSODIUM 141.0 mmol/LPOTASSIUM 4.30 mmol/LCHLORIDE 107.0 mmol/LCO2 23.0 mmol/LBUN 20.0 mg/dLCREATININE 1.0 mg/dLSGOT/AST 26.0 IU/LSGPT/ALT 42.0 IU/LALK PHOS 70.0 IU/LTOTAL PROTEIN 6.90 g/dLALBUMIN 4.20 g/dLTOTAL BILI 0.70 mg/dLCALCIUM 9.60 mg/dLAGE 59 GFR NonAA 56 GFR AA 68 eGFR 56 eGFR AA* >60 06/03/2011 1:00 PM COLOR YELLOW APPEARANCE HAZY [...] CULT SET UP? YES 05/22/2016 3:30 PM G041-JrB D pteronyssinus <0. 10 U/hAD478-JrT D farinae <0.10 U/rOI623-XlI Cat Dander <0.10 D415-KjG Dog Dander <0.10 U/sWP705-PvV [place] Grass <0.10 U/pDK272-LuT Bluegrass,[place] <0.10 U/eVS222-SlL [place] Grass <0.10 U/lUM179-NuH Cockroach,Nigerian <0.10 A557-KnL Penicilliumchrysogen <0.10 N058-BwF Cladosporiumherbarum <0.10 O252-FkV Aspergillusfumigatus <0.10 E521-DfW Mucor racemosus <0.10 M052-VwA Alternariaalternata <0.10 M312-WvR Stemphyliumherbarum <0.10 Y811-WrS Maple/[place] <0.10 U/wCS550-KtS [place], White <0.10 U/oVJ854-FyU Elm, Nigerian <0.10 U/pVJ830-DbI [place] <0.10 U/hWW734-IwG Merlin, White <0.10 U/lHJ812-ApT Maple LeafSycamore <0.10 U/fMY759-ShQ [place] <0.10 U/sVE043-UeY Ragweed, Short <0.10 L284-HwS [place] <0.10 W009- IgE Plantain,Congolese <0.10 T356-IbW Thistle, Botswanan <0.10 U515-FzQ Pigweed, Common <0.10 W998-IhR Sheep [place] <0.10 T567-ZgU Milk <0.10 C452-KxI Wheat <0.10 U/iYW692-OnL [place] <0.10 U/kOI950-SsA Peanut <0.10 U/cGZ135-YeF Soybean <0.10 U/oCM077-MsY Pork <0.10 U/kDU678-MdU Beef <0.10 U/lGLD34-LrU Food Mix(Seafoods) Negative A394-CfU Egg, Whole <0.10 U/qQP342-FaW Chocolate/[place] <0.10 07/21/2016 3:26 PM GLUCOSE 104.0 mg/dLSODIUM [...] Fatigue, unspecified type Oct 06 2017 1:28PM Payers Insurance Name Company Name Plan Name Plan Number Policy Number Sanjay cy Group Number Start Date Medicare RHC Medicare RHC [id number] N/A [facility] [id number] N/A Medicare Part A Medicare - Lab/Xray [id number] N/A BCBS Bcbs [place] [id number] July 05, 2013 Medicare Part A Medicare Part A [id number] Friday, July 05, 2013 [facility] Nigerian Life Insurance Ri Nigerian Retriement [id number] N/A Medicare Part B Medicare [facility] [id number] Friday, July 05, 2013 [place] [facility] Nigerian Life Ins [id number] N/A Medicare Part A ZZZMedicare P A - Preventive [id number] N/A History of Encounters Visit Date Visit Type Provider 10/06/2017 Office visit Jada Pulliam MAPPING ENGINEER 10/07/2016 [facility] Jessica Dhaliwal MD 08/12/2016 Office visit Jada Pulliam MAPPING ENGINEER 08/05/2016 Office visit Jada Pulliam MAPPING ENGINEER 07/21/2016 Office visit Jada Pulliam MAPPING ENGINEER 07/10/2016 [facility] Sage Green MD 07/09/2016 Office visit Valorie BARROSP 07/09/2016 [facility] Jessica Dhaliwal MD 05/22/2016 Nurse visit Jada Pulliam MAPPING ENGINEER 04/13/2016 Office visit Katharina Murdock APR N 04/04/2016 Nurse visit Jada Pulliam MAPPING ENGINEER 03/26/2016 Office visit Jada Pulliam MAPPING ENGINEER 02/29/2016 Office visit Jada Pulliam MAPPING ENGINEER 01/09/2016 Office visit Jada Pulliam MAPPING ENGINEER 11/14/2015 Office visit Jada Pulliam MAPPING ENGINEER 07/16/2015 Nurse visit Jada Pulliam MAPPING ENGINEER 11/30/2014 Office visit Sharon Villanueva 10/18/2014 Office visit Jada Pulliam MAPPING ENGINEER 08/17/2014 Office visit Jaylene Rebolledo MD 06/28/2014 Office visit Jada Pulliam MAPPING ENGINEER 06/01/2014 Office visit Sharon Villanueva 04/28/2014 Nurse visit Jada Pulliam MAPPING ENGINEER 07/20/2013 Office visit Jada Pulliam MAPPING ENGINEER 07/05/2013 Nurse visit Jada Pulliam MAPPING ENGINEER 01/10/2013 Office visit Jada Pulliam MAPPING ENGINEER 12/29/2012 Nurse visit Jada Pulliam MAPPING ENGINEER 06/16/2012 Office visit aJda Pulliam MAPPING ENGINEER 05/04/2012 Office visit Jada Pulliam MAPPING ENGINEER 03/10/2012 Office visit Jada Pulliam MAPPING ENGINEER 03/04/2012 Office visit Jada Heraclio MAPPING ENGINEER 01/13/2012 Office visit Ezequiel Mahan MD 01/08/2012 Nurse visit Mikki Carrasco MD 12/16/2011 Voided Ezequiel Mahan MD 11/28/2011 Office visit Ezequiel Mahna MD 10/28/2011 Office visit Jada Pulliam MAPPING ENGINEER 08/14/2011 Office visit Ezequiel Mahan MD 08/07/2011 Nurse visit Ezequiel Mahan MD 06/03/2011 Office visit Jada Pulliam MAPPING ENGINEER 05/07/2011 Office visit Ezequiel Mahan MD [...]
--- OUTSIDE RECORDS SUMMARY | 2019-12-14 18:08 | XMS REPORT ---
Author Shandra Mata Organization [facility] Address [address] [place], [place] [address] Care Team Providers Care Business Team Leader Name Role Phone Hermilo Gallego PCP Jada Pulliam PreferredProvider Allergies and Adverse Reactions Name Reaction Notes ciprofloxacin migraine codeine sulfate Plan of Treatment Planned Activity Comments Planned Date Planned Time Plan/Goal Urine Culture, [place] Count 03/04/2016 12:00 AM lumbar pain 12/17/2015 [...] HC BMI BSA BMI Percentile O2 Sat(%) 03/12/2018 10:36:00 AM 129 mmHg 78 mmHg [...] Reviewed 02/29/2016 12:00 AM Rocephin 1 gram NDC#8291-6061-42 Reviewe d 03/27/2016 12:00 AM INJECT SPINE LUMBAR/SACRAL Reviewed 03/27/2016 12:00 AM URNLS DIP STICK/TABLET RGNT AUTO W/O KATHRIN ROSCOPY Reviewed 03/26/2016 12:00 AM Benadryl, Up to 50 Mg [facility]# 4523-9695-35 Reviewed 04/04/2016 12:00 AM IMMUNOTHERAPY ONE INJECTION Reviewed 10/29/2011 12:00 AM URINALYSIS AUTO W/O SCOPE Reviewed 10/28/2011 12:00 AM COMPLETE CBC W/AUTO DIFF WBC Reviewed 10/28/2011 12:00 AM COMPREHEN METABOLIC PANEL Reviewed 10/28/2011 12:00 AM URINE CULTURE/COLONY COUNT Reviewed 05/22/2016 12:00 AM ALLERGEN SPECIFIC IGE Reviewed 05/22/2016 12:00 AM Decadron, Per 1 Mg [facility]# [address]-29 Re viewed 05/22/2016 12:00 AM Depo-Medrol 40mg [...] mg [facility]#[id number] Reviewe d 09/08/2016 12:00 AM METABOLIC PANEL TOTAL CA Reviewed 09/08/2016 12:00 AM COMPLETE CBC W/AUTO DIFF WBC Reviewed 09/08/2016 12:00 AM RADIOLOGIC EXAM CHEST 2 VIEWS FRONTAL&LA TERAL Reviewed 04/13/2016 12:00 AM Depo-Medrol, Per 80 Mg ND#[address]-97 Reviewed 04/13/2016 12:00 AM Decadron, Per 1 Mg [facility]# [address]-85 Re viewed 04/13/2016 12:00 AM THER/PROPH/DIAG INJ [...] 12:00 AM Decadron, Per 1 Mg ND# [address]-68 Re viewed 01/10/2013 12:00 AM Depo-Medrol, Per 80 Mg NDC#5881-1736-71 Reviewed 07/05/2013 12:00 AM Prolia, 60 Mg Reviewed 07/20/2013 12:00 AM THER/PROPH/DIAG INJ SC/IM Reviewed 07/20/2013 12:00 AM Depo-Medrol, Per 80 Mg NDC#6588-1942-53 Reviewed 07/20/2013 12:00 AM Decadron, Per 1 Mg NDC# [address]-65 Re viewed 05/13/2010 12:00 AM COMPREHEN METABOLIC [...] Kenalog 40 Mg [facility]#0949-3829-59 Review ed 12/26/2014 12:00 AM Prolia, 60 [...] CULT SET UP? YES 05/22/2016 3:30 PM Z288-CqL D pteronyssinus <0. 10 U/dYW891-PjV D farinae <0.10 U/eXA065-CgA Cat Dander <0.10 G638-VsE Dog Dander <0.10 U/rJE906-ZrA [place] Grass <0.10 U/iVW038-JsG Bluegrass,[place] <0.10 U/bCP191-ShY [place] Grass <0.10 U/gBP367-QqJ Cockroach,Sudanese <0.10 Y086-IeC Penicilliumchrysogen <0.10 M987-QhS Cladosporiumherbarum <0.10 H324-RqC Aspergillusfumigatus <0.10 D419-JfY Mucor racemosus <0.10 U302-DoZ Alternariaalternata <0.10 H833-SxI Stemphyliumherbarum <0.10 N972-VzY Maple/[place] <0.10 U/qGX803-LpH Gypsum, White <0.10 U/iID077-KjP Elm, Sudanese <0.10 U/pGP672-JnA [place] <0.10 U/rKT154-PrT Merlin, White <0.10 U/mYO751-HnQ Maple LeafSycamore <0.10 U/sND647-QvG White [place] <0.10 U/qTL728-YhJ Ragweed, Short <0.10 J359-QlL [place] <0.10 W009- IgE Plantain,Belarusian <0.10 F597-YsK Thistle, Pakistani <0.10 Z865-GkV Pigweed, Common <0.10 F454-FoB Sheep [place] <0.10 Y850-PzR Milk <0.10 M377-NyH Wheat <0.10 U/xTX011-AnL [place] <0.10 U/rZR265-FoZ Peanut <0.10 U/yBD926-GeX Soybean <0.10 U/xEQ647-CnR Pork <0.10 U/xJI814-NeH Beef <0.10 U/gHEU05-JnI Food Mix(Seafoods) Negative K934-JxJ Egg, Whole <0.10 U/gSK179-WtT Chocolate/[place] <0.10 07/21/2016 3:26 PM GLUCOSE 104.0 mg/dLSODIUM [...] Number Start Date Medicare RHC Medicare RHC [id number] N/A [facility] [id number] N/A Medicare Part A Medicare - Lab/Xray [id number] N/A BCBS Bcbs [facility] [id number] July 05, 2013 Medicare Part A Medicare Part A [id number] Friday, July 05, 2013 [facility] [employer] Me Sudanese Retriement [id number] N/A Medicare Part B Medicare Of [place] [id number] Friday, July 05, 2013 [place] [facility] Sudanese Life Ins [id number] N/A Medicare Part A ZZZMedicare P A - Preventive [id number] N/A History of Encounters Visit Date Visit Type Provider 03/12/2018 Procedures Hermilo Gallego DO 02/26/2018 Procedures Hermilo Gallego DO 01/03/2018 Office visit Katharina Murdock APR N 10/08/2017 Office visit Jada Pulliam ESTHETICIAN FACIALIST 10/06/2017 Office visit Jada Pulliam ESTHETICIAN FACIALIST 10/07/2016 [facility] Jessica Dhaliwal MD 08/12/2016 Office visit Jada Pulliam ESTHETICIAN FACIALIST 08/05/2016 Office visit Jada Pulliam ESTHETICIAN FACIALIST 07/21/2016 Office visit Jada Pulliam ESTHETICIAN FACIALIST 07/10/2016 [facility] Sage Green MD 07/09/2016 Office visit Valorie MCCLURE 07/09/2016 [facility] Jessica Dhaliwal MD 05/22/2016 Nurse visit Jada Pulliam ESTHETICIAN FACIALIST 04/13/2016 Office visit Katharina Murdock APR N 04/04/2016 Nurse visit Jada Pulliam ESTHETICIAN FACIALIST 03/26/2016 Office visit Jada Pulliam ESTHETICIAN FACIALIST 02/29/2016 Office visit Jada Pulliam ESTHETICIAN FACIALIST 01/09/2016 Office visit Jada Pulliam ESTHETICIAN FACIALIST 11/14/2015 Office visit Jada Pulliam ESTHETICIAN FACIALIST 07/16/2015 Nurse visit Jada Pulliam ESTHETICIAN FACIALIST 11/30/2014 Office visit Sharon Villanueva 10/18/2014 Office visit Jada Pulliam ESTHETICIAN FACIALIST 08/17/2014 Office visit Jaylene Rebolledo MD 06/28/2014 Office visit Jada Pulliam ESTHETICIAN FACIALIST 06/01/2014 Office visit Sharon Villanueva 04/28/2014 Nurse visit Jada Pulliam ESTHETICIAN FACIALIST 07/20/2013 Office visit Jada Pulliam ESTHETICIAN FACIALIST 07/05/2013 Nurse visit Jada Pulliam ESTHETICIAN FACIALIST 01/10/2013 Office visit Jada Pulliam ESTHETICIAN FACIALIST 12/29/2012 Nurse visit Jada Pulliam ESTHETICIAN FACIALIST 06/16/2012 Office visit Jada Pulliam ESTHETICIAN FACIALIST 05/04/2012 Office visit Jada Pulliam ESTHETICIAN FACIALIST 03/10/2012 Office visit Jada Pulliam ESTHETICIAN FACIALIST 03/04/2012 Office visit Jada Pulliam ESTHETICIAN FACIALIST 01/13/2012 Office visit Ezequiel Mahan MD 01/08/2012 Nurse visit Mikki Carrasco MD 12/16/2011 Voided Ezequiel Mahan MD 11/28/2011 Office visit Ezequiel Mahan MD 10/28/2011 Office visit Jada Pulliam ESTHETICIAN FACIALIST 08/14/2011 Office visit Ezequiel Mahan MD 08/07/2011 Nurse visit Ezequiel Mahan MD 06/03/2011 Office visit Jada Heraclio ESTHETICIAN FACIALIST 05/07/2011 Office visit Ezequiel Mahan MD 04/28/2011 Voided Ezqeuiel Mahan MD 11/18/2010 Office visit Braydon Ramirez DO 11/07/2010 Office visit Braydon Ramirez DO 10/15/2010 Office visit Braydon Ramirez DO 08/27/2010 Office visit Hillary WEST 05/16/2010 Office visit Braydon Ramirez DO 12/05/2009 Office visit Braydon Ramirez DO 11/07/2009 Office visit Braydon Ramirez DO 10/24/2009 Office visit Braydon Ramirez DO 08/16/2009 Office visit Braydon Ramirez DO 08/15/2009 Laboratory Braydon Raimrez DO 07/02/2009 Office visit Braydon Ramirez DO
--- OUTSIDE RECORDS SUMMARY | 2019-12-14 18:09 | XMS REPORT ---
Author Shandra Porter Organization [facility] Address [address] [place], [place] [address] Care Team Providers Care Fishery Biologist Name Role Phone Jada Pulliam PCP Jada Pulliam PreferredProvider Allergies and Adverse Reactions Name Reaction Notes ciprofloxacin migraine codeine sulfate Plan of Treatment Planned Activity Comments Planned Date Planned Time Plan/Goal Urine Culture, [place] Count 03/04/2016 12:00 AM HEMOGLOBIN A1C 10/08/2017 12:00 AM lumbar pain 12/17/2015 2:00 PM [...] ONE C APSULE BY MOUTH AT BEDTIME promethazine-codeine 6.25-10 mg/5 mL oral syrup 10/08/2017 [...] HC BMI BSA BMI Percentile O2 Sat(%) 10/08/2017 10:04:00 AM 138 mmHg 78 mmHg 78 bpm 18 rpm 98.8 F 226.5 lbs 68 in 34.44 kg/m2 2.22 m2 95 % 10/06/2017 1:26:00 PM 130 mmHg 78 mmHg 86 bpm 18 rpm 98.4 F 232.5 lbs 68 in 35.3511 kg/m 2.2494 m 96 % 08/12/2016 1:30:00 PM 136 mmHg [...] F 223.375 lbs 68 in 33.96 kg/m2 2.2048 m 96 % 08/27/2010 8:15:00 AM 128 mmHg 78 mmHg 64 bpm 16 rpm 96.8 F 225.5 lbs 05/16/2010 4:17:00 PM 150 mmHg 88 mmHg 88 bpm 16 rpm 98.3 F 231 lbs 68 in 35.12 kg/m2 2.2421 m 97 % 12/05/2009 4:39:00 PM 140 mmHg 100 mmHg 83 bpm 18 rpm 98.4 F 228.125 lbs 68 in 34.6859 kg/m 2.23 m2 98 % 11/07/2009 2:02:00 PM 120 mmHg 86 mmHg 77 bpm 18 rpm 98.8 F 230 lbs 68 in 34.97 kg/m2 2.2373 m 99 % 10/24/2009 3:58:00 PM 110 mmHg 80 mmHg 80 bpm 18 rpm 97.6 F 229 lbs 68 in 34.819 kg/m 2.23 m2 95 % Social History Name [...] Rocephin 1 gram [facility]#9089-3429-87 Reviewe d 03/27/2016 12:00 AM INJECT SPINE LUMBAR/SACRAL Reviewed 03/27/2016 12:00 AM URNLS DIP STICK/TABLET RGNT AUTO W/O KATHRIN ROSCOPY Reviewed 03/26/2016 12:00 AM Benadryl, Up to 50 Mg [facility]# 1097-3737-82 Reviewed 04/04/2016 12:00 AM IMMUNOTHERAPY ONE INJECTION Reviewed 10/29/2011 12:00 AM URINALYSIS AUTO W/O SCOPE Reviewed 10/28/2011 12:00 AM COMPLETE CBC W/AUTO DIFF WBC Reviewed 10/28/2011 12:00 AM COMPREHEN METABOLIC PANEL Reviewed 10/28/2011 12:00 AM URINE CULTURE/COLONY COUNT Reviewed 05/22/2016 12:00 AM ALLERGEN SPECIFIC IGE Reviewed 05/22/2016 12:00 AM Decadron, Per 1 Mg [facility]# [address]-59 Re viewed 05/22/2016 12:00 AM Depo-Medrol 40mg [...] Depo-Medrol 40 mg [facility]#[id number] Reviewe d 09/08/2016 12:00 AM METABOLIC PANEL TOTAL CA Reviewed 09/08/2016 12:00 AM COMPLETE CBC W/AUTO DIFF WBC Reviewed 09/08/2016 12:00 AM RADIOLOGIC EXAM CHEST 2 VIEWS FRONTAL&LA TERAL Reviewed 04/13/2016 12:00 AM Depo-Medrol, Per 80 Mg [facility]#[address]-71 Reviewed 04/13/2016 12:00 AM Decadron, Per 1 Mg [facility]# [address]-19 Re viewed 04/13/2016 12:00 AM THER/PROPH/DIAG INJ [...] AM COMPLETE CBC W/AUTO DIFF WBC Returned 10/06/2017 12:00 AM COMPREHEN METABOLIC PANEL Returned 10/06/2017 12:00 AM LIPID PANEL Returned 10/06/2017 12:00 AM ASSAY THYROID STIM HORMONE Returned 12/01/2012 12:00 AM COMPREHEN METABOLIC PANEL Reviewed 12/29/2012 12:00 AM Prolia, 60 Mg Reviewed 12/29/2012 12:00 AM THER/PROPH/DIAG INJ SC/IM Reviewed 01/10/2013 12:00 AM THER/PROPH/DIAG INJ SC/IM Reviewed 01/10/2013 12:00 AM Decadron, Per 1 Mg [facility]# [address]-14 Re viewed 01/10/2013 12:00 AM Depo-Medrol, Per 80 Mg [facility]#7410-7059-91 Reviewed 07/05/2013 12:00 AM Prolia, 60 Mg Reviewed 07/20/2013 12:00 AM THER/PROPH/DIAG INJ SC/IM Reviewed 07/20/2013 12:00 AM Depo-Medrol, Per 80 Mg [facility]#7810-6240-08 Reviewed 07/20/2013 12:00 AM Decadron, Per 1 Mg [facility]# [address]-53 Re viewed 05/13/2010 12:00 AM COMPREHEN METABOLIC [...] Reviewed 10/24/2009 12:00 AM Kenalog 40 Mg [facility]#7821-8298-08 Review ed 12/26/2014 12:00 AM Prolia, 60 [...] CULT SET UP? YES 05/22/2016 3:30 PM W494-TuW D pteronyssinus <0. 10 U/fDL654-DyT D farinae <0.10 U/qRE693-HzV Cat Dander <0.10 G562-DnQ Dog Dander <0.10 U/hFJ325-XjW [place] Grass <0.10 U/vEZ520-VfL Bluegrass,[place] <0.10 U/mLG827-FbB [place] Grass <0.10 U/cCP210-WqQ Cockroach,Canadian <0.10 B733-AsM Penicilliumchrysogen <0.10 T842-ZkF Cladosporiumherbarum <0.10 Y509-NrN Aspergillusfumigatus <0.10 G082-JoB Mucor racemosus <0.10 Z592-WjS Alternariaalternata <0.10 X745-UhH Stemphyliumherbarum <0.10 X678-LtL Maple/[place] <0.10 U/hFE806-AzJ [place], White <0.10 U/xXI402-FsF Elm, Canadian <0.10 U/iKP703-FgA [place] <0.10 U/jPD237-OkU Merlin, White <0.10 U/qKG772-SqC Maple LeafSycamore <0.10 U/oOE685-QfQ [place] <0.10 U/rUE860-GmN Ragweed, Short <0.10 D365-QzB [place] <0.10 W009- IgE Plantain,Vietnamese <0.10 O175-EeV Thistle, [place]ar[place]uan <0.10 T779-HpV Pigweed, Common <0.10 G185-PuT Sheep [place] <0.10 S814-GhX Milk <0.10 M103-YsX Wheat <0.10 U/dNC307-MlR [place] <0.10 U/fQF008-FkY Peanut <0.10 U/bCE022-AyF Soybean <0.10 U/rYC692-ZlB Pork <0.10 U/mGH515-EoU Beef <0.10 U/mCUK92-MkS Food Mix(Seafoods) Negative O838-UqB Egg, Whole <0.10 U/gTW683-HoN Chocolate/[place] <0.10 07/21/2016 3:26 PM GLUCOSE 104.0 mg/dLSODIUM [...] Not Entered 10/05/2019 10/05/2019 999 Tdap 07/16/2015 Zen99 SKB BOOSTRIX [id number] Intramuscula r Right Deltoid [...] 2017 10:04AM Hyperglycemia Oct 08 2017 3:59PM Payers Insurance Name Company Name Plan Name Plan Number Policy Number Sanjay cy Group Number Start Date Medicare RHC Medicare RHC [id number] N/A Upre[employer] Uprehs [id number] N/A Medicare Part A Medicare - Lab/Xray [id number] N/A [id number] July 05, 2013 Medicare Part A Medicare Part A [id number] Friday, July 05, [address] [facility] [address] Canadian Retriement [id number] N/A Medicare Part B Medicare Of [place] [id number] Friday, July 05, 2013 [place] [employer] [facility] [address] MWI Ins [id number] N/A Medicare Part A ZZZMedicare P A - Preventive [id number] N/A History of Encounters Visit Date Visit Type Provider 10/08/2017 Office visit Jada Pulliam CERTIFIED DETENTION DEPUTY 10/06/2017 Office visit Jada Pulliam CERTIFIED DETENTION DEPUTY 10/07/2016 [facility] Jessica Dhaliwal MD 08/12/2016 Office visit Jada Pulliam CERTIFIED DETENTION DEPUTY 08/05/2016 Office visit Jada Pulliam CERTIFIED DETENTION DEPUTY 07/21/2016 Office visit Jada Pulliam CERTIFIED DETENTION DEPUTY 07/10/2016 [facility] Sage Green MD 07/09/2016 Office visit Valorie MCCLURE 07/09/2016 [facility] Jessica Dhaliwal MD 05/22/2016 Nurse visit Jada Pulliam CERTIFIED DETENTION DEPUTY 04/13/2016 Office visit Katharina Murdock APR N 04/04/2016 Nurse visit Jada Pulliam CERTIFIED DETENTION DEPUTY 03/26/2016 Office visit Jada Pulliam CERTIFIED DETENTION DEPUTY 02/29/2016 Office visit Jada Pulliam CERTIFIED DETENTION DEPUTY 01/09/2016 Office visit Jada Pulliam CERTIFIED DETENTION DEPUTY 11/14/2015 Office visit Jada Pulliam CERTIFIED DETENTION DEPUTY 07/16/2015 Nurse visit Jada Pulliam CERTIFIED DETENTION DEPUTY 11/30/2014 Office visit Sharon Villanueva 10/18/2014 Office visit Jada Pulliam CERTIFIED DETENTION DEPUTY 08/17/2014 Office visit Jaylene Rebolledo MD 06/28/2014 Office visit Jada Pulliam CERTIFIED DETENTION DEPUTY 06/01/2014 Office visit Sharon Villanueva 04/28/2014 Nurse visit Jada Walker CERTIFIED DETENTION DEPUTY 07/20/2013 Office visit Jada Pulliam CERTIFIED DETENTION DEPUTY 07/05/2013 Nurse visit Jada Pulliam CERTIFIED DETENTION DEPUTY 01/10/2013 Office visit Jada Pulliam CERTIFIED DETENTION DEPUTY 12/29/2012 Nurse visit Jada Pulliam CERTIFIED DETENTION DEPUTY 06/16/2012 Office visit Jada Pulliam CERTIFIED DETENTION DEPUTY 05/04/2012 Office visit Jada Pulliam CERTIFIED DETENTION DEPUTY 03/10/2012 Office visit Jada Pulliam CERTIFIED DETENTION DEPUTY 03/04/2012 Office visit Jada Pulliam CERTIFIED DETENTION DEPUTY 01/13/2012 Office visit Ezequiel Mahan MD 01/08/2012 Nurse visit Mikki Carrasco MD 12/16/2011 Voided Ezequiel Mahan MD 11/28/2011 Office visit Ezequiel Mahan MD 10/28/2011 Office visit Jada Pulliam CERTIFIED DETENTION DEPUTY 08/14/2011 Office visit Ezequiel Mahan MD 08/07/2011 Nurse visit Ezequiel Mahan MD 06/03/2011 Office visit Jada Pulliam CERTIFIED DETENTION DEPUTY 05/07/2011 Office visit Ezequiel Mahan MD 04/28/2011 [...]
--- OUTSIDE RECORDS SUMMARY | 2019-12-14 18:09 | XMS REPORT ---
Author Shandra Porter Organization [facility] Address [address] [place], [place] [address] Care Team Providers Care Nremt Name Role Phone Jada Pulliam PCP Jada Pulliam PreferredProvider Allergies and Adverse Reactions Name Reaction Notes ciprofloxacin migraine codeine sulfate Plan of Treatment Planned Activity Comments Planned Date Planned Time Plan/Goal Urine Culture, [place] Count 03/04/2016 12:00 AM HEMOGLOBIN A1C 10/08/2017 [...] Macrobid 100 mg oral capsule 03/10/2012 03/17/2012 naderson e 1 capsule (100 mg) by oral [...] Reviewed 02/29/2016 12:00 AM Rocephin 1 gram [facility]#5483-8384-32 Reviewe d 03/27/2016 12:00 AM INJECT SPINE LUMBAR/SACRAL Reviewed 03/27/2016 12:00 AM URNLS DIP STICK/TABLET RGNT AUTO W/O KATHRIN ROSCOPY Reviewed 03/26/2016 12:00 AM Benadryl, Up to 50 Mg [facility]# 7460-1005-20 Reviewed 04/04/2016 12:00 AM IMMUNOTHERAPY ONE INJECTION Reviewed 10/29/2011 12:00 AM URINALYSIS AUTO W/O SCOPE Reviewed 10/28/2011 12:00 AM COMPLETE CBC W/AUTO DIFF WBC Reviewed 10/28/2011 12:00 AM COMPREHEN METABOLIC PANEL Reviewed 10/28/2011 12:00 AM URINE CULTURE/COLONY COUNT Reviewed 05/22/2016 12:00 AM ALLERGEN SPECIFIC IGE Reviewed 05/22/2016 12:00 AM Decadron, Per 1 Mg [facility]# [address]-83 Re viewed 05/22/2016 12:00 AM Depo-Medrol 40mg [...] Reviewed 01/08/2012 12:00 AM Depo-Medrol 40 mg [facility]#[id number] Reviewe d 09/08/2016 12:00 AM METABOLIC PANEL TOTAL CA Reviewed 09/08/2016 12:00 AM COMPLETE CBC W/AUTO DIFF WBC Reviewed 09/08/2016 12:00 AM RADIOLOGIC EXAM CHEST 2 VIEWS FRONTAL&LA TERAL Reviewed 04/13/2016 12:00 AM Depo-Medrol, Per 80 Mg [facility]#[address]-00 Reviewed 04/13/2016 12:00 AM Decadron, Per 1 Mg [facility]# [address]-90 Re viewed 04/13/2016 12:00 AM THER/PROPH/DIAG INJ [...] 01/10/2013 12:00 AM Decadron, Per 1 Mg [facility]# [address]-14 Re viewed 01/10/2013 12:00 AM Depo-Medrol, Per 80 Mg [facility]#4256-2023-77 Reviewed 07/05/2013 12:00 AM Prolia, 60 Mg Reviewed 07/20/2013 12:00 AM THER/PROPH/DIAG INJ SC/IM Reviewed 07/20/2013 12:00 AM Depo-Medrol, Per 80 Mg [facility]#4409-9069-95 Reviewed 07/20/2013 12:00 AM Decadron, Per 1 Mg [facility]# [address]-73 Re viewed 05/13/2010 12:00 AM COMPREHEN METABOLIC [...] Reviewed 10/24/2009 12:00 AM Kenalog 40 Mg [facility]#9317-9162-82 Review ed 12/26/2014 12:00 AM Prolia, 60 [...] CULT SET UP? YES 05/22/2016 3:30 PM D839-UwY D pteronyssinus <0. 10 U/iJY794-LkZ D farinae <0.10 U/xJJ429-ZlN Cat Dander <0.10 C456-WkL Dog Dander <0.10 U/rKT116-VxG [place] Grass <0.10 U/xED739-BlK Bluegrass,[place] <0.10 U/bQH300-LyQ [place] Grass <0.10 U/aSF351-MzS Cockroach,Spanish <0.10 M448-CgQ Penicilliumchrysogen <0.10 Y963-ZrQ Cladosporiumherbarum <0.10 K606-DdI Aspergillusfumigatus <0.10 J159-ZuK Mucor racemosus <0.10 O662-HwF Alternariaalternata <0.10 Q057-RvL Stemphyliumherbarum <0.10 D884-IiM Maple/[place] <0.10 U/oCK131-KfK [place], White <0.10 U/pZJ358-TkS Elm, Spanish <0.10 U/hEL270-JiR [place] <0.10 U/yMV572-NkP Merlin, White <0.10 U/lMK361-TxI Maple LeafSycamore <0.10 U/iHV455-PiE White [place] <0.10 U/vJC044-IaQ Ragweed, Short <0.10 G688-ToJ [place] <0.10 W009- IgE Plantain,Slovenian <0.10 O616-HhT Thistle, German <0.10 X940-PfU Pigweed, Common <0.10 U372-XgH Sheep Bean [place] <0.10 A355-XkS Milk <0.10 W454-OuS Wheat <0.10 U/tVS375-OjA [place] <0.10 U/yFL142-AzO Peanut <0.10 U/zOJ806-HuA Soybean <0.10 U/mHE108-CeT Pork <0.10 U/aDZ681-KaR Beef <0.10 U/mRYE81-WmE Food Mix(Seafoods) Negative F789-DzF Egg, Whole <0.10 U/wWM730-BrT Chocolate/[place] <0.10 07/21/2016 3:26 PM GLUCOSE 104.0 mg/dLSODIUM [...] Not Entered 10/05/2019 10/05/2019 999 Tdap 07/16/2015 [employer] SKB BOOSTRIX H9P57 Intramuscula r Right Deltoid [...] Number Start Date Medicare RHC Medicare RHC [id number] N/A Uprehs Uprehs [id number] N/A Medicare Part A Medicare - Lab/Xray [id number] N/A [facility] [id number] July 05, 2013 Medicare Part A Medicare Part A [id number] Friday, July 05, [address] [facility] [place] Spanish Retriement [id number] N/A Medicare Part B Medicare Of [place] [id number] Friday, July 05, 2013 [employer] [facility] [employer] Ins [id number] N/A Medicare Part A ZZZMedicare P A - Preventive [id number] N/A History of Encounters Visit Date Visit Type Provider 10/08/2017 Office visit Jada Pulliam JOURNEYMAN OPERATOR ASSISTANT 10/06/2017 Office visit Jada Pulliam JOURNEYMAN OPERATOR ASSISTANT 10/07/2016 [facility] Jessica Dhaliwal MD 08/12/2016 Office visit Jada Pulliam JOURNEYMAN OPERATOR ASSISTANT 08/05/2016 Office visit Jada Pulliam JOURNEYMAN OPERATOR ASSISTANT 07/21/2016 Office visit Jada Pulliam JOURNEYMAN OPERATOR ASSISTANT 07/10/2016 [facility] Sage Green MD 07/09/2016 Office visit Valorie MCCLURE 07/09/2016 [facility] Jessica Dhaliwal MD 05/22/2016 Nurse visit Jada Pulliam JOURNEYMAN OPERATOR ASSISTANT 04/13/2016 Office visit Katharina Murdock APR N 04/04/2016 Nurse visit Jada Pulliam JOURNEYMAN OPERATOR ASSISTANT 03/26/2016 Office visit Jada Pulliam JOURNEYMAN OPERATOR ASSISTANT 02/29/2016 Office visit Jada Pulliam JOURNEYMAN OPERATOR ASSISTANT 01/09/2016 Office visit Jada Pulliam JOURNEYMAN OPERATOR ASSISTANT 11/14/2015 Office visit Jada Pulliam JOURNEYMAN OPERATOR ASSISTANT 07/16/2015 Nurse visit Jada Pulliam JOURNEYMAN OPERATOR ASSISTANT 11/30/2014 Office visit Sharon Villanueva 10/18/2014 Office visit Jada Pulliam JOURNEYMAN OPERATOR ASSISTANT 08/17/2014 Office visit Jaylene Rebolledo MD 06/28/2014 Office visit Jada Pulliam JOURNEYMAN OPERATOR ASSISTANT 06/01/2014 Office visit Sharon Villanueva 04/28/2014 Nurse visit Jada Walker JOURNEYMAN OPERATOR ASSISTANT 07/20/2013 Office visit Jada Pulliam JOURNEYMAN OPERATOR ASSISTANT 07/05/2013 Nurse visit Jada Pulliam JOURNEYMAN OPERATOR ASSISTANT 01/10/2013 Office visit Jada Pulliam JOURNEYMAN OPERATOR ASSISTANT 12/29/2012 Nurse visit Jada Pulliam JOURNEYMAN OPERATOR ASSISTANT 06/16/2012 Office visit Jada Pulliam JOURNEYMAN OPERATOR ASSISTANT 05/04/2012 Office visit Jada Pulliam JOURNEYMAN OPERATOR ASSISTANT 03/10/2012 Office visit Jada Pulliam JOURNEYMAN OPERATOR ASSISTANT 03/04/2012 Office visit Jada Pulliam JOURNEYMAN OPERATOR ASSISTANT 01/13/2012 Office visit Ezequiel Mahan MD 01/08/2012 Nurse visit Mikki Carrasco MD 12/16/2011 Voided Ezequiel Mahan MD 11/28/2011 Office visit Ezequiel Mahan MD 10/28/2011 Office visit Jada Pulliam JOURNEYMAN OPERATOR ASSISTANT 08/14/2011 Office visit Ezequiel Mahan MD 08/07/2011 Nurse visit Ezequiel Mahan MD 06/03/2011 Office visit Jada Pulliam JOURNEYMAN OPERATOR ASSISTANT 05/07/2011 Office visit Ezequiel Mahan MD 04/28/2011 [...]
--- OUTSIDE RECORDS SUMMARY | 2019-12-14 18:10 | XMS REPORT ---
Author Author Shandra Pulliam Organization [facility] Address [address] [place], [place] [address] Care Team Providers Care Police Communications Dispatcher Name Role Phone Jada Pulliam PCP Unavailable [...] gabapentin 100 mg oral capsule 01/24/2015 T TRISTA ONE CAPSULE BY MOUTH TWICE [...] AM TDAP VACCINE 7 YRS/> IM Reviewed 08/07/2011 12:00 AM THER/PROPH/DIAG INJ SC/IM Reviewed 08/07/2011 12:00 AM Solu-Medrol 125 Mg Reviewed 10/29/2011 12:00 AM URINALYSIS AUTO W/O SCOPE Reviewed 10/28/2011 12:00 AM COMPLETE CBC W/AUTO DIFF WBC Returned 10/28/2011 12:00 AM COMPREHEN METABOLIC PANEL Returned 10/28/2011 12:00 AM URINE CULTURE/COLONY COUNT Returned 01/08/2012 12:00 AM THER/PROPH/DIAG INJ SC/IM Reviewed 01/08/2012 12:00 AM Depo-Medrol 40 mg [facility]#[id number] Reviewe d 03/12/2012 12:00 AM URINALYSIS AUTO [...] 01/10/2013 12:00 AM Decadron, Per 1 Mg [facility]# [address]-90 Re viewed 01/10/2013 12:00 AM Depo-Medrol, Per 80 Mg [facility]#6989-7590-46 Reviewed 07/05/2013 12:00 AM Prolia, 60 Mg Reviewed 07/20/2013 12:00 AM THER/PROPH/DIAG INJ SC/IM Reviewed 07/20/2013 12:00 AM Depo-Medrol, Per 80 Mg [facility]#8860-6131-61 Reviewed 07/20/2013 12:00 AM Decadron, Per 1 Mg [facility]# [address]-35 Re viewed 05/13/2010 12:00 AM COMPREHEN METABOLIC [...] Reviewed 10/24/2009 12:00 AM Kenalog 40 Mg [facility]#2309-1636-04 Review ed 12/26/2014 12:00 AM Prolia, 60 [...] 5.02 HGB 15.10 g/dLHCT 45.20 %MCV 90.0 fLH 30.10 pgMCHC 33.40 g/dLRDW CV 13.10 %MPV 11.40 fLPLT 231 %NEUT 39.20 %%LYMP 48.30 %%MONO 9.60 %%EOS 2.90 %%BASO 0.0 %#NEUT 2.13 #LYMP 2.62 #MONO 0.52 #EOS 0.16 #BASO 0.00 05/05/2012 9:18 AM WBC 15.8 RBC 4.91 HGB 14.80 g/dLHCT 45.20 %MCV 92.0 fLH 30.10 pgHC 32.70 g/dLRDW CV 13.40 %MPV 10.40 fLPLT [...] for Tdap vaccination Jul 16 2015 2:59PM Payers Insurance Name Company Name Plan Name Plan Number Policy Number Sanjay cy Group Number Start Date Medicare Part A Medicare Part A [id number] Friday, 2013 [place] [employer] [facility] [employer] Ins [id number] N/A Medicare Part A Medicare P A - Preventive [id number] N/A [employer] Bulgarian Retriement [id number] N/A Medicare Part B Medicare Of [place] [id number] Friday, 2013 Bcbs Bcbs [facility] [id number] 2013 History of Encounters Visit Date Visit Type Provider 07/16/2015 Nurse visit Jada Pulliam DEVELOPMENT COORDINATOR 11/30/2014 Office visit Sharon Villanueva 10/18/2014 Office visit Jada Pulliam DEVELOPMENT COORDINATOR 08/17/2014 Office visit Jaylene Rebolledo MD 06/28/2014 Office visit Jada Pulliam DEVELOPMENT COORDINATOR 06/01/2014 Office visit Sharon Villanueva 04/28/2014 Nurse visit Jada Pulliam DEVELOPMENT COORDINATOR 07/20/2013 Office visit Jada Pulliam DEVELOPMENT COORDINATOR 07/05/2013 Nurse visit Jada Pulliam DEVELOPMENT COORDINATOR 01/10/2013 Office visit Jada Pulliam DEVELOPMENT COORDINATOR 12/29/2012 Nurse visit Jada Pulliam DEVELOPMENT COORDINATOR 06/16/2012 Office visit Jada Pulliam DEVELOPMENT COORDINATOR 05/04/2012 Office visit Jada Pulliam DEVELOPMENT COORDINATOR 03/10/2012 Office visit Jada Pluliam DEVELOPMENT COORDINATOR 03/04/2012 Office visit Jada Pulliam DEVELOPMENT COORDINATOR 01/13/2012 Office visit Ezequiel Mahan MD 01/08/2012 Nurse visit Mikki Carrasco MD 12/16/2011 Voided Ezequiel Mahan MD 11/28/2011 Office visit Ezequiel Mahan MD 10/28/2011 Office visit Jada Pulliam DEVELOPMENT COORDINATOR 08/14/2011 Office visit Ezequiel Mahan MD 08/07/2011 [...]
--- OUTSIDE RECORDS SUMMARY | 2019-12-14 18:11 | XMS REPORT ---
Author Shandra Porter Organization [facility] Address [address] [place], [place] [address] Care Team Providers Care Palm And Back Forger Name Role Phone Jada Pulliam PCP Unavailable [...] Returned 02/29/2016 12:00 AM Rocephin 1 gram [facility]#8740-2453-45 Reviewe d 03/26/2016 12:00 AM Benadryl, Up to 50 Mg [facility]# 2172-5792-57 Reviewed 10/29/2011 12:00 AM URINALYSIS AUTO W/O SCOPE Reviewed 10/28/2011 12:00 AM COMPLETE CBC W/AUTO DIFF WBC Returned 10/28/2011 12:00 AM COMPREHEN METABOLIC PANEL Returned 10/28/2011 12:00 AM URINE CULTURE/COLONY COUNT Returned 01/08/2012 12:00 AM THER/PROPH/DIAG INJ SC/IM Reviewed 01/08/2012 12:00 AM Depo-Medrol 40 mg [facility]#[id number] Reviewe d 03/12/2012 12:00 AM URINALYSIS AUTO [...] 01/10/2013 12:00 AM Decadron, Per 1 Mg [facility]# [address]-33 Re viewed 01/10/2013 12:00 AM Depo-Medrol, Per 80 Mg [facility]#9932-8863-98 Reviewed 07/05/2013 12:00 AM Prolia, 60 Mg Reviewed 07/20/2013 12:00 AM THER/PROPH/DIAG INJ SC/IM Reviewed 07/20/2013 12:00 AM Depo-Medrol, Per 80 Mg [facility]#9815-2917-17 Reviewed 07/20/2013 12:00 AM Decadron, Per 1 Mg [facility]# [address]-52 Re viewed 05/13/2010 12:00 AM COMPREHEN METABOLIC [...] Reviewed 10/24/2009 12:00 AM Kenalog 40 Mg [facility]#6496-0867-72 Review ed 12/26/2014 12:00 AM Prolia, 60 [...] Not Entered 10/05/2019 10/05/2019 999 Tdap 07/16/2015 [facility] [facility] SKB BOOSTRIX [id number] Intramuscula r Right Deltoid [...] at L4-L5 level Mar 27 2016 9:53AM Payers Insurance Name Company Name Plan Name Plan Number Policy Number Sanjay cy Group Number Start Date Medicare Part A Medicare [facility] [id number] N/A Susan [employer] [facility] [id number] N/A Medicare Part A Medicare P A - Preventive [id number] N/A Medicare Part A Medicare - Lab/Xray [id number] N/A BCBS Bcbs [facility] [id number] July 05, 2013 Medicare Part A Medicare Part A [id number] Friday, July 05, 2013 [facility] Kazakh Retriement [id number] N/A Medicare Part B Medicare Of [place] [id number] Friday, July 05, 2013 History of Encounters Visit Date Visit Type Provider 03/26/2016 Office visit Jada Pulliam ANGLE ROLL OPERATOR 02/29/2016 Office visit Jada Pulliam ANGLE ROLL OPERATOR 01/09/2016 Office visit Jada Pulliam ANGLE ROLL OPERATOR 11/14/2015 Office visit Jada Pulliam ANGLE ROLL OPERATOR 07/16/2015 Nurse visit Jada Pulliam ANGLE ROLL OPERATOR 11/30/2014 Office visit Sharon Villanueva 10/18/2014 Office visit Jada Pulliam ANGLE ROLL OPERATOR 08/17/2014 Office visit Jaylene Rebolledo MD 06/28/2014 Office visit Jada Pulliam ANGLE ROLL OPERATOR 06/01/2014 Office visit Sharon Villanueva 04/28/2014 Nurse visit Jada Pulliam ANGLE ROLL OPERATOR 07/20/2013 Office visit Jada Pulliam ANGLE ROLL OPERATOR 07/05/2013 Nurse visit Jada Pulliam ANGLE ROLL OPERATOR 01/10/2013 Office visit Jada Pulliam ANGLE ROLL OPERATOR 12/29/2012 Nurse visit Jada Pulliam ANGLE ROLL OPERATOR 06/16/2012 Office visit Jada Pulliam ANGLE ROLL OPERATOR 05/04/2012 Office visit Jada Pulliam ANGLE ROLL OPERATOR 03/10/2012 Office visit Jada Pulliam ANGLE ROLL OPERATOR 03/04/2012 Office visit Jada Pulliam ANGLE ROLL OPERATOR 01/13/2012 Office visit Ezequiel Mahan MD [...]
--- OUTSIDE RECORDS SUMMARY | 2019-12-14 18:11 | XMS REPORT ---
Author Shandra Porter Organization [facility] Address [address] [place], [place] [address] Care Team Providers Care Case Management Associate Name Role Phone Jada Pulliam PCP Unavailable Jada Pulliam PreferredProvider Unavailable Allergies and Adverse Reactions Name Reaction Notes ciprofloxacin migraine codeine sulfate Plan of Treatment Planned Activity Comments Planned Date Planned Time Plan/Goal Urine Culture, [place] Count 03/04/2016 12:00 AM lumbar pain 12/17/2015 [...] AM Rocephin 1 gram [facility]#3620-6988-99 Reviewe d 03/27/2016 12:00 AM URNLS DIP STICK/TABLET RGNT AUTO W/O KATHRIN ROSCOPY Returned 03/26/2016 12:00 AM Benadryl, Up to 50 Mg [facility]# 6135-4740-62 Reviewed 04/04/2016 12:00 AM IMMUNOTHERAPY ONE INJECTION Reviewed 04/13/2016 12:00 AM Depo-Medrol, Per 80 Mg [facility]#[address]-48 Reviewed 04/13/2016 12:00 AM Decadron, Per 1 Mg [facility]# [address]-83 Re viewed 04/13/2016 12:00 AM THER/PROPH/DIAG INJ SC/IM Reviewed 10/29/2011 12:00 AM URINALYSIS AUTO W/O SCOPE Reviewed 10/28/2011 12:00 AM COMPLETE CBC W/AUTO DIFF WBC Returned 10/28/2011 12:00 AM COMPREHEN METABOLIC PANEL Returned 10/28/2011 12:00 AM URINE CULTURE/COLONY COUNT Returned 05/22/2016 12:00 AM ALLERGEN SPECIFIC IGE Returned 05/22/2016 12:00 AM Decadron, Per 1 Mg [facility]# [address]-28 Re viewed 05/22/2016 12:00 AM Depo-Medrol 40mg Reviewed 05/22/2016 12:00 AM THER/PROPH/DIAG INJ SC/IM Reviewed 07/21/2016 12:00 AM METABOLIC PANEL TOTAL CA Returned 07/21/2016 12:00 AM COMPLETE CBC W/AUTO DIFF WBC Returned 08/05/2016 12:00 AM CYTOPATH C/V THIN LAYER Reviewed 08/05/2016 12:00 AM DXA BONE DENSITY AXIAL Returned 08/05/2016 12:00 AM Pap Specimen Handling - Medicare Returne d 08/05/2016 12:00 AM MAMMOGRAPHY SCREENING, DIGITAL Returned 01/08/2012 12:00 AM THER/PROPH/DIAG INJ SC/IM Reviewed 01/08/2012 12:00 AM Depo-Medrol 40 mg [facility]#[id number] Reviewe d 03/12/2012 12:00 AM URINALYSIS AUTO [...] Per 1 Mg [facility]# [address]-63 Re viewed 01/10/2013 12:00 AM Depo-Medrol, Per 80 Mg [facility]#3194-0486-58 Reviewed 07/05/2013 12:00 AM Prolia, 60 Mg Reviewed 07/20/2013 12:00 AM THER/PROPH/DIAG INJ SC/IM Reviewed 07/20/2013 12:00 AM Depo-Medrol, Per 80 Mg [facility]#0864-9034-61 Reviewed 07/20/2013 12:00 AM Decadron, Per 1 Mg [facility]# [address]-55 Re viewed 05/13/2010 12:00 AM COMPREHEN METABOLIC [...] Reviewed 10/24/2009 12:00 AM Kenalog 40 Mg [facility]#9746-1787-13 Review ed 12/26/2014 12:00 AM Prolia, 60 [...] CULT SET UP? YES 05/22/2016 3:30 PM G930-DaQ D pteronyssinus <0. 10 U/jKB766-KzA D farinae <0.10 U/eFE542-EsI Cat Dander <0.10 M563-JcW Dog Dander <0.10 U/iYM374-EiB Berm[place] Grass <0.10 U/vBU476-KmU Bluegrass,[place] <0.10 U/rWA082-MuA [place] Grass <0.10 U/ePS894-UlG Cockroach,Moldovan <0.10 X972-MkW Penicilliumchrysogen <0.10 B940-UqU Cladosporiumherbarum <0.10 S406-DgU Aspergillusfumigatus <0.10 G687-LdS Mucor racemosus <0.10 R604-ZqB Alternariaalternata <0.10 P183-RvM Stemphyliumherbarum <0.10 N737-YoD Maple/[place] <0.10 U/oKV711-JaD [place], White <0.10 U/tQK898-OoY Elm, Moldovan <0.10 U/zWV257-GwO [place] <0.10 U/kWQ072-GiT Merlin, White <0.10 U/eZK435-HxR Maple LeafSycamore <0.10 U/aWP010-BnI [place] <0.10 U/fFP205-LiB Ragweed, Short <0.10 O774-BeN [place] <0.10 W009- IgE Plantain,[place]ican <0.10 T242-UvC Thistle, [place] Timorese <0.10 F524-LbQ Pigweed, Common <0.10 P261-XqM Sheep [place] <0.10 R500-GkB Milk <0.10 F707-UpR Wheat <0.10 U/oUC577-OuQ [place] <0.10 U/tAQ953-SlX Peanut <0.10 U/zQF744-ZmU Soybean <0.10 U/zPJ467-VxK Pork <0.10 U/hBB498-SvF Beef <0.10 U/sMAH85-HoA Food Mix(Seafoods) Negative L776-InU Egg, Whole <0.10 U/lUJ198-PuX Chocolate/[place] <0.10 07/21/2016 3:26 PM GLUCOSE 104.0 mg/dLSODIUM [...] Not Entered 10/05/2019 10/05/2019 999 Tdap 07/16/2015 [employer] SKB BOOSTRIX H9P57 Intramuscula r Right Deltoid [...] specified organisms Aug 12 201 6 1:32PM Payers Insurance Name Company Name Plan Name Plan Number Policy Number Sanjay cy Group Number Start Date Medicare Part A Medicare C [id number] N/A [email or web address] Insurance No.1 [facility] [place] Life Ins [id number] N/A Medicare Part A ZZZMedicare P A - Preventive [id number] N/A Medicare Part A Medicare - Lab/Xray [id number] N/A BCBS Bcbs [facility] [id number] July 05, 2013 Medicare Part A Medicare Part A [id number] Friday, July 05, 2013 [facility] [employer] Pr Mold[place] Retriement [id number] N/A Medicare Part B Medicare Of [place] [id number] Friday, July 05, 2013 History of Encounters Visit Date Visit Type Provider 08/12/2016 Office visit Jada Pulliam CASE MANAGEMENT DIRECTOR 08/05/2016 Office visit Jada Pulliam CASE MANAGEMENT DIRECTOR 07/21/2016 Office visit Jada Pulliam CASE MANAGEMENT DIRECTOR 07/10/2016 [facility] Sage Green MD 07/09/2016 Office visit Valorie MCCLURE 05/22/2016 Nurse visit Jada Pulliam CASE MANAGEMENT DIRECTOR 04/13/2016 Office visit Katharina Murdock APR N 04/04/2016 Nurse visit Jada Pulliam CASE MANAGEMENT DIRECTOR 03/26/2016 Office visit Jada Pulliam CASE MANAGEMENT DIRECTOR 02/29/2016 Office visit Jada Pulliam CASE MANAGEMENT DIRECTOR 01/09/2016 Office visit Jada Pulliam CASE MANAGEMENT DIRECTOR 11/14/2015 Office visit Jada Pulliam CASE MANAGEMENT DIRECTOR 07/16/2015 Nurse visit Jada Pulliam CASE MANAGEMENT DIRECTOR 11/30/2014 Office visit Sharon Villanueva 10/18/2014 Office visit Jada Pulliam CASE MANAGEMENT DIRECTOR 08/17/2014 Office visit Jaylene Rebolledo MD 06/28/2014 Office visit Jada Pulliam CASE MANAGEMENT DIRECTOR 06/01/2014 Office visit Sharon Villanueva 04/28/2014 Nurse visit Jada Pulliam APRN 07/20/2013 Office visit Jada Pulliam CASE MANAGEMENT DIRECTOR 07/05/2013 Nurse visit Jada Pulliam CASE MANAGEMENT DIRECTOR 01/10/2013 Office visit Jada Pulliam CASE MANAGEMENT DIRECTOR 12/29/2012 Nurse visit Jada Pulliam CASE MANAGEMENT DIRECTOR 06/16/2012 Office visit Jada Pulliam CASE MANAGEMENT DIRECTOR 05/04/2012 Office visit Jada Pulliam CASE MANAGEMENT DIRECTOR 03/10/2012 Office visit Jada Pulliam CASE MANAGEMENT DIRECTOR 03/04/2012 Office visit Jada Pulliam CASE MANAGEMENT DIRECTOR 01/13/2012 Office visit Ezequiel Mahan MD 01/08/2012 Nurse visit Mikki Carrasco MD 12/16/2011 Voided Ezequiel Mahan MD 11/28/2011 Office visit Ezequiel Mahan MD 10/28/2011 Office visit Jada Heraclio CASE MANAGEMENT DIRECTOR 08/14/2011 Office visit Ezequiel Mahan MD 08/07/2011 Nurse visit Ezequiel Mahan MD 06/03/2011 Office visit Jada Heraclio CASE MANAGEMENT DIRECTOR 05/07/2011 Office visit Ezequiel Mahan MD 04/28/2011 Voidvelma Mahna MD 11/18/2010 Office visit Braydon Ramirez DO 11/07/2010 Office visit Braydon Ramirez DO 10/15/2010 Office visit Braydon Ramirez DO 08/27/2010 Office visit Hillary WETS 05/16/2010 Office visit Braydon Ramirez DO 12/05/2009 Office visit Braydon Ramirez DO 11/07/2009 Office visit Braydon Ramirez DO 10/24/2009 Office visit Braydon Ramirez DO 08/16/2009 Office visit Braydon Ramirez DO 08/15/2009 Laboratory Braydon Ramirez DO 07/02/2009 Office visit Braydon Ramirez DO
--- OUTSIDE RECORDS SUMMARY | 2019-12-14 18:12 | XMS REPORT ---
Author Shandra Porter Organization [facility] Address [address] [place], [place] [address] Care Team Providers Care Monogram Maker Name Role Phone Jada Pulliam PCP Unavailable Jada Pulliam PreferredProvider Unavailable Allergies and Adverse Reactions Name Reaction Notes ciprofloxacin migraine codeine sulfate Plan of Treatment Planned Activity Comments Planned Date Planned Time Plan/Goal Urine Culture, Peerless Count 03/04/2016 12:00 AM lumbar pain 12/17/2015 [...] to exceed 30 mL in 24 hours Levaquin 750 mg oral tablet 08/12/2016 08/19/2016 take 1 tablet (750 mg) by oral route once daily for 7 days Flonase Allergy Relief 50 mcg/actuation nasal spray,suspension [...] Returned 02/29/2016 12:00 AM Rocephin 1 gram [facility]#1436-4798-97 Reviewe d 03/27/2016 12:00 AM URNLS DIP STICK/TABLET RGNT AUTO W/O KATHRIN ROSCOPY Returned 03/26/2016 12:00 AM Benadryl, Up to 50 Mg [facility]# 8625-7940-87 Reviewed 04/04/2016 12:00 AM IMMUNOTHERAPY ONE INJECTION Reviewed 04/13/2016 12:00 AM Depo-Medrol, Per 80 Mg [facility]#[address]-86 Reviewed 04/13/2016 12:00 AM Decadron, Per 1 Mg [facility]# [address]-31 Re viewed 04/13/2016 12:00 AM THER/PROPH/DIAG INJ SC/IM Reviewed 10/29/2011 12:00 AM URINALYSIS AUTO W/O SCOPE Reviewed 10/28/2011 12:00 AM COMPLETE CBC W/AUTO DIFF WBC Returned 10/28/2011 12:00 AM COMPREHEN METABOLIC PANEL Returned 10/28/2011 12:00 AM URINE CULTURE/COLONY COUNT Returned 05/22/2016 12:00 AM ALLERGEN SPECIFIC IGE Returned 05/22/2016 12:00 AM Decadron, Per 1 Mg [facility]# [address]-70 Re viewed 05/22/2016 12:00 AM Depo-Medrol 40mg Reviewed 05/22/2016 12:00 AM THER/PROPH/DIAG INJ SC/IM Reviewed 07/21/2016 12:00 AM METABOLIC PANEL TOTAL CA Returned 07/21/2016 12:00 AM COMPLETE CBC W/AUTO DIFF WBC Returned 08/05/2016 12:00 AM CYTOPATH C/V THIN LAYER Reviewed 08/05/2016 12:00 AM DXA BONE DENSITY AXIAL Returned 08/05/2016 12:00 AM Pap Specimen Handling - Medicare Returne d 01/08/2012 12:00 AM THER/PROPH/DIAG INJ SC/IM Reviewed 01/08/2012 12:00 AM Depo-Medrol 40 mg [facility]#[id number] Reviewe d 03/12/2012 12:00 AM URINALYSIS AUTO [...] 01/10/2013 12:00 AM Decadron, Per 1 Mg [facility]# [address]-18 Re viewed 01/10/2013 12:00 AM Depo-Medrol, Per 80 Mg [facility]#5388-2551-30 Reviewed 07/05/2013 12:00 AM Prolia, 60 Mg Reviewed 07/20/2013 12:00 AM THER/PROPH/DIAG INJ SC/IM Reviewed 07/20/2013 12:00 AM Depo-Medrol, Per 80 Mg [facility]#2715-4836-28 Reviewed 07/20/2013 12:00 AM Decadron, Per 1 Mg [facility]# [address]-71 Re viewed 05/13/2010 12:00 AM COMPREHEN METABOLIC [...] 12:00 AM Kenalog 40 Mg [facility]#4061-9547-16 Review ed 12/26/2014 12:00 AM Prolia, 60 [...] CULT SET UP? YES 05/22/2016 3:30 PM K963-GrM D pteronyssinus <0. 10 U/aSO805-MeZ D farinae <0.10 U/pMK684-UfL Cat Dander <0.10 T960-VvR Dog Dander <0.10 U/gIP900-PvN [place] Grass <0.10 U/oZB356-JzF Bluegrass,[place] <0.10 U/kGE649-WtZ [place] Grass <0.10 U/oHN814-GdD Cockroach,Burkinan <0.10 S504-HxG Penicilliumchrysogen <0.10 P691-KjG Cladosporiumherbarum <0.10 N666-XxD Aspergillusfumigatus <0.10 K180-LoA Mucor racemosus <0.10 R211-GqZ Alternariaalternata <0.10 T309-FfC Stemphyliumherbarum <0.10 Y412-VbN Maple/[place] <0.10 U/jHH617-UhB [place], White <0.10 U/lTM796-HkQ Elm, Burkinan <0.10 U/uML755-VyH [place] <0.10 U/nZX432-XbG Merlin, White <0.10 U/aGT345-BqS Maple LeafSycamore <0.10 U/nCL747-EvW White [place] <0.10 U/vMU933-LiB Ragweed, Short <0.10 V556-QbV [place] <0.10 W009- IgE Plantain,Iraqi <0.10 S988-AwQ Thistle, Guatemalan <0.10 G709-XqM Pigweed, Common <0.10 C503-WzN Sheep [place] <0.10 D992-VnZ Milk <0.10 X071-XsA Wheat <0.10 U/bJO864-HlQ [place] <0.10 U/yAB949-HcS Peanut <0.10 U/pDU576-XmZ Soybean <0.10 U/gGV442-YoE Pork <0.10 U/yKG017-SmX Beef <0.10 U/tANZ80-QeP Food Mix(Seafoods) Negative P375-VvX Egg, Whole <0.10 U/rHD620-DwI Chocolate/[place] <0.10 07/21/2016 3:26 PM GLUCOSE 104.0 mg/dLSODIUM [...] Not Entered 10/05/2019 10/05/2019 999 Tdap 07/16/2015 [employer] SKB BOOSTRIX [id number] Intramuscula r Right Deltoid [...] Encounter for screening mammogram for breast cancer Oct 31 2 016 11:50AM Routine gynecological examination Aug [...] Start Date Medicare Part A Medicare RHC [id number] N/A [place] [employer] Insurance [employer] [facility] [place] Life Ins [id number] N/A Medicare Part A ZZZMedicare P A - Preventive [id number] N/A Medicare Part A Medicare - Lab/Xray [id number] N/A BCBS Bcbs [facility] [id number] July 05, 2013 Medicare Part A Medicare Part A [id number] Friday, July 05, 2013 [facility] [employer] Insurance Pr Burkinan Retriement [id number] N/A Medicare Part B Medicare Of [place] [id number] Friday, July 05, 2013 History of Encounters Visit Date Visit Type Provider 08/12/2016 Office visit Jada Pulliam PACKAGE CAR DRIVER 08/05/2016 Office visit Jada Pulliam PACKAGE CAR DRIVER 07/21/2016 Office visit Jada Pulliam PACKAGE CAR DRIVER 07/10/2016 [facility] Sage Green MD 07/09/2016 Office visit Valorie MCCLURE 05/22/2016 Nurse visit Jada Pulliam PACKAGE CAR DRIVER 04/13/2016 Office visit Katharina Murdock APR N 04/04/2016 Nurse visit Jada Pulliam PACKAGE CAR DRIVER 03/26/2016 Office visit Jada Pulliam PACKAGE CAR DRIVER 02/29/2016 Office visit Jada Pulliam PACKAGE CAR DRIVER 01/09/2016 Office visit Jada Pulliam PACKAGE CAR DRIVER 11/14/2015 Office visit Jada Pulliam PACKAGE CAR DRIVER 07/16/2015 Nurse visit Jada Pulliam PACKAGE CAR DRIVER 11/30/2014 Office visit Sharon Villanueva 10/18/2014 Office visit Jada Pulliam PACKAGE CAR DRIVER 08/17/2014 Office visit Jaylene Rebolledo MD 06/28/2014 Office visit Jada Pulliam PACKAGE CAR DRIVER 06/01/2014 Office visit Sharon Villanueva 04/28/2014 Nurse visit Jada Pulliam PACKAGE CAR DRIVER 07/20/2013 Office visit Jada Pulliam PACKAGE CAR DRIVER 07/05/2013 Nurse visit Jada Pulliam PACKAGE CAR DRIVER 01/10/2013 Office visit Jada Pulliam PACKAGE CAR DRIVER 12/29/2012 Nurse visit Jada Pulliam PACKAGE CAR DRIVER 06/16/2012 Office visit Jada Pulliam PACKAGE CAR DRIVER 05/04/2012 Office visit Jada Pulliam PACKAGE CAR DRIVER 03/10/2012 Office visit Jada Pulliam PACKAGE CAR DRIVER 03/04/2012 Office visit Jada Pulliam PACKAGE CAR DRIVER 01/13/2012 Office visit Ezequiel Mahan MD 01/08/2012 Nurse visit Mikki Carrasco MD 12/16/2011 Voided Ezequiel Mahan MD 11/28/2011 Office visit Ezequiel Mahan MD 10/28/2011 Office visit Jada Heraclio PACKAGE CAR DRIVER 08/14/2011 Office visit Ezequiel Mahan MD 08/07/2011 Nurse visit Ezequiel Mahan MD 06/03/2011 Office visit Jada Heraclio PACKAGE CAR DRIVER 05/07/2011 Office visit Ezequiel Mahan MD 04/28/2011 [...]
--- OUTSIDE RECORDS SUMMARY | 2019-12-14 18:13 | XMS REPORT ---
Author Shandra Porter Organization [facility] Address [address] [place], [place] [address] Care Team Providers Care Exit Booth Agent Name Role Phone Jada Pulliam PCP Unavailable [...] 2 times per day for 7 days Name Start Date Expiration Date SIG [...] Returned 02/29/2016 12:00 AM Rocephin 1 gram [facility]#4578-1747-55 Reviewe d 03/27/2016 12:00 AM URNLS DIP STICK/TABLET RGNT AUTO W/O KATHRIN ROSCOPY Returned 03/26/2016 12:00 AM Benadryl, Up to 50 Mg [facility]# 5027-6321-17 Reviewed 10/29/2011 12:00 AM URINALYSIS AUTO W/O SCOPE Reviewed 10/28/2011 12:00 AM COMPLETE CBC W/AUTO DIFF WBC Returned 10/28/2011 12:00 AM COMPREHEN METABOLIC PANEL Returned 10/28/2011 12:00 AM URINE CULTURE/COLONY COUNT Returned 01/08/2012 12:00 AM THER/PROPH/DIAG INJ SC/IM Reviewed 01/08/2012 12:00 AM Depo-Medrol 40 mg [facility]#[id number] Reviewe d 03/12/2012 12:00 AM URINALYSIS AUTO [...] 12:00 AM Decadron, Per 1 Mg ND# [address]-33 Re viewed 01/10/2013 12:00 AM Depo-Medrol, Per 80 Mg [facility]#3278-7977-09 Reviewed 07/05/2013 12:00 AM Prolia, 60 Mg Reviewed 07/20/2013 12:00 AM THER/PROPH/DIAG INJ SC/IM Reviewed 07/20/2013 12:00 AM Depo-Medrol, Per 80 Mg [facility]#0732-9204-69 Reviewed 07/20/2013 12:00 AM Decadron, Per 1 Mg ND# [address]-71 Re viewed 05/13/2010 12:00 AM COMPREHEN METABOLIC [...] Kenalog 40 Mg [facility]#6711-4079-17 Review ed 12/26/2014 12:00 AM Prolia, 60 [...] Not Entered 10/05/2019 10/05/2019 999 Tdap 07/16/2015 Glaxi.M[employer] SKB BOOSTRIX [id number] Intramuscula r Right Deltoid [...] Start Date Medicare Part A Medicare RHC [id number] N/A [place] [employer] [place] [employer] Life Ins [id number] N/A Medicare Part A Medicare P A - Preventive [id number] N/A Medicare Part A Medicare - Lab/Xray [id number] N/A [facility] [id number] July 05, 2013 Medicare Part A Medicare Part A [id number] Friday, July 05, 2013 [facility] [employer] Ms Cymro Retriement [id number] N/A Medicare Part B Medicare Of [place] [id number] Friday, July 05, 2013 History of Encounters Visit Date Visit Type Provider 03/26/2016 Office visit Jada Pulliam OPEN HEARTH FURNACE LABORER 02/29/2016 Office visit Jada Pulliam OPEN HEARTH FURNACE LABORER 01/09/2016 Office visit Jada Pulliam OPEN HEARTH FURNACE LABORER 11/14/2015 Office visit Jada Pulliam OPEN HEARTH FURNACE LABORER 07/16/2015 Nurse visit Jada Pulliam OPEN HEARTH FURNACE LABORER 11/30/2014 Office visit Sharon Villanueva 10/18/2014 Office visit Jada Pulliam OPEN HEARTH FURNACE LABORER 08/17/2014 Office visit Jaylene Rebolledo MD 06/28/2014 Office visit Jada Pulliam OPEN HEARTH FURNACE LABORER 06/01/2014 Office visit Sharon Villanueva 04/28/2014 Nurse visit Jada Pulliam OPEN HEARTH FURNACE LABORER 07/20/2013 Office visit Jada Pulliam OPEN HEARTH FURNACE LABORER 07/05/2013 Nurse visit Jada Pulliam APRN 01/10/2013 Office visit Jada Pulliam OPEN HEARTH FURNACE LABORER 12/29/2012 Nurse visit Jada Pulliam OPEN HEARTH FURNACE LABORER 06/16/2012 Office visit Jada Pulliam APRN 05/04/2012 Office visit Jada Pulliam APRN 03/10/2012 Office visit Jada Pulliam APRN 03/04/2012 Office visit Jada Pulliam OPEN HEARTH FURNACE LABORER 01/13/2012 Office visit Ezequiel Mahan MD 01/08/2012 [...]
--- OUTSIDE RECORDS SUMMARY | 2019-12-14 18:13 | XMS REPORT ---
Author Shandra Lagos Organization [facility] Address [address] [place], [place] [address] Care Team Providers Care Metal Solderer Name Role Phone Katharina Murdock PCP Jada Pulliam PreferredProvider Allergies and Adverse Reactions Name Reaction Notes ciprofloxacin migraine codeine sulfate Plan of Treatment Planned Activity Comments Planned Date Planned Time Plan/Goal Urine Culture, [place] Count 03/04/2016 12:00 AM lumbar pain 12/17/2015 [...] day Bactrim DS 800-160 mg oral tablet 01/03/2018 take 1 tablet by oral route every 12 hours for 3 days Name Start Date Expiration Date SIG [...] HC BMI BSA BMI Percentile O2 Sat(%) 01/03/2018 1:13:00 PM 138 mmHg 88 mmHg 84 bpm 16 rpm 96.2 F 231 lbs 68 in 35.1231 kg/m 2.2421 m 94 % 10/08/2017 10:04:00 AM 138 mmHg [...] 02/29/2016 12:00 AM Rocephin 1 gram [facility]#8279-9950-28 Reviewe d 03/27/2016 12:00 AM INJECT SPINE LUMBAR/SACRAL Reviewed 03/27/2016 12:00 AM URNLS DIP STICK/TABLET RGNT AUTO W/O KATHRIN ROSCOPY Reviewed 03/26/2016 12:00 AM Benadryl, Up to 50 Mg [facility]# 9765-2505-37 Reviewed 04/04/2016 12:00 AM IMMUNOTHERAPY ONE INJECTION Reviewed 10/29/2011 12:00 AM URINALYSIS AUTO W/O SCOPE Reviewed 10/28/2011 12:00 AM COMPLETE CBC W/AUTO DIFF WBC Reviewed 10/28/2011 12:00 AM COMPREHEN METABOLIC PANEL Reviewed 10/28/2011 12:00 AM URINE CULTURE/COLONY COUNT Reviewed 05/22/2016 12:00 AM ALLERGEN SPECIFIC IGE Reviewed 05/22/2016 12:00 AM Decadron, Per 1 Mg [facility]# [address]-78 Re viewed 05/22/2016 12:00 AM Depo-Medrol 40mg [...] 01/08/2012 12:00 AM Depo-Medrol 40 mg [facility]#[id number] Reviewe d 09/08/2016 12:00 AM METABOLIC PANEL TOTAL CA Reviewed 09/08/2016 12:00 AM COMPLETE CBC W/AUTO DIFF WBC Reviewed 09/08/2016 12:00 AM RADIOLOGIC EXAM CHEST 2 VIEWS FRONTAL&LA TERAL Reviewed 04/13/2016 12:00 AM Depo-Medrol, Per 80 Mg ND#[address]-33 Reviewed 04/13/2016 12:00 AM Decadron, Per 1 Mg [facility]# [address]-92 Re viewed 04/13/2016 12:00 AM THER/PROPH/DIAG INJ [...] 12:00 AM Decadron, Per 1 Mg [facility]# [address]-24 Re viewed 01/10/2013 12:00 AM Depo-Medrol, Per 80 Mg [facility]#2486-2585-86 Reviewed 07/05/2013 12:00 AM Prolia, 60 Mg Reviewed 07/20/2013 12:00 AM THER/PROPH/DIAG INJ SC/IM Reviewed 07/20/2013 12:00 AM Depo-Medrol, Per 80 Mg [facility]#5779-8023-05 Reviewed 07/20/2013 12:00 AM Decadron, Per 1 Mg [facility]# [address]-31 Re viewed 05/13/2010 12:00 AM COMPREHEN METABOLIC [...] Kenalog 40 Mg [facility]#4837-6882-79 Review ed 12/26/2014 12:00 AM Prolia, 60 [...] CULT SET UP? YES 05/22/2016 3:30 PM B231-SaA D pteronyssinus <0. 10 U/rWG968-BeH D farinae <0.10 U/sYD738-VxL Cat Dander <0.10 X072-XbZ Dog Dander <0.10 U/bMV456-DhA [place] Grass <0.10 U/nDK920-JvB Bluegrass,[place] <0.10 U/xWJ648-RzN [place] Grass <0.10 U/qHF059-HjQ Cockroach,[place] <0.10 V240-AkT Penicilliumchrysogen <0.10 U819-VjX Cladosporiumherbarum <0.10 B619-RsP Aspergillusfumigatus <0.10 D225-SwC Mucor racemosus <0.10 P473-GyA Alternariaalternata <0.10 R005-EnM Stemphyliumherbarum <0.10 K950-QtX Maple/[place] <0.10 U/mQI153-ZqK [place], White <0.10 U/oXO294-UrW Elm, [place] <0.10 U/ySI930-GlA [place] <0.10 U/oNA077-GwM Merlin, White <0.10 U/kEV507-ZqN Maple LeafSycamore <0.10 U/rXH445-EvO White [place] <0.10 U/wDC659-XdD Ragweed, Short <0.10 V430-MaX [place] <0.10 W009- IgE Plantain,Vietnamese <0.10 Q517-QcL Thistle, [place] <0.10 W312-BrJ Pigweed, Common <0.10 K099-BtZ Sheep [place] <0.10 O830-OqF Milk <0.10 U412-GuB Wheat <0.10 U/mKS398-TuT [place] <0.10 U/aIJ862-FkF Peanut <0.10 U/cRN447-CcY Soybean <0.10 U/bWK643-AtV Pork <0.10 U/yIY647-WgX Beef <0.10 U/xBHM06-VlG Food Mix(Seafoods) Negative G483-LgH Egg, Whole <0.10 U/eNX736-KlR Chocolate/[place] <0.10 07/21/2016 3:26 PM GLUCOSE 104.0 mg/dLSODIUM [...] Low back pain Jan 03 2018 1:16PM Payers Insurance Name Company Name Plan Name Plan Number Policy Number Sanjay cy Group Number Start Date Medicare RHC Medicare RHC [id number] N/A [facility] Uprs [id number] N/A Medicare Part A Medicare - Lab/Xray [id number] N/A BCBS Bcbs [facility] [id number] July 05, 2013 Medicare Part A Medicare Part A [id number] Friday, July 05, 2013 [facility] [employer] Life Insurance [place] Retriement [id number] N/A Medicare Part B Medicare [facility] [id number] Friday, July 05, 2013 [place] [email or web address] [facility] Tuvaluan Life Ins [id number] N/A Medicare Part A ZZZMedicare P A - Preventive [id number] N/A History of Encounters Visit Date Visit Type Provider 01/03/2018 Office visit Katharina Murdock APR N 10/08/2017 Office visit Jada Pulliam FINE ARTS TEACHER 10/06/2017 Office visit Jada Pulliam FINE ARTS TEACHER 10/07/2016 [facility] Jessica Dhaliwal MD 08/12/2016 Office visit Jada Pulliam FINE ARTS TEACHER 08/05/2016 Office visit Jada Pulliam FINE ARTS TEACHER 07/21/2016 Office visit Jada Pulliam FINE ARTS TEACHER 07/10/2016 [facility] Sage Green MD 07/09/2016 Office visit Valorie MCCLURE 07/09/2016 [facility] Jessica Dhaliwal MD 05/22/2016 Nurse visit Jada Pulliam FINE ARTS TEACHER 04/13/2016 Office visit Katharina Murdock APR N 04/04/2016 Nurse visit Jada Pulliam FINE ARTS TEACHER 03/26/2016 Office visit Jada Pulliam FINE ARTS TEACHER 02/29/2016 Office visit Jada Pulliam FINE ARTS TEACHER 01/09/2016 Office visit Jada Pulliam FINE ARTS TEACHER 11/14/2015 Office visit Jada Pulliam FINE ARTS TEACHER 07/16/2015 Nurse visit Jada Pulliam FINE ARTS TEACHER 11/30/2014 Office visit Sharon Villanueva 10/18/2014 Office visit Jada Pulliam FINE ARTS TEACHER 08/17/2014 Office visit Jaylene Rebolledo MD 06/28/2014 Office visit Jada Pulliam FINE ARTS TEACHER 06/01/2014 Office visit Sharon Villanueva 04/28/2014 Nurse visit Jada Pulliam FINE ARTS TEACHER 07/20/2013 Office visit Jada Pulliam FINE ARTS TEACHER 07/05/2013 Nurse visit Jada Pulliam FINE ARTS TEACHER 01/10/2013 Office visit Jada Pulliam FINE ARTS TEACHER 12/29/2012 Nurse visit Jada Pulliam FINE ARTS TEACHER 06/16/2012 Office visit Jada Pulliam FINE ARTS TEACHER 05/04/2012 Office visit Jada Pulliam FINE ARTS TEACHER 03/10/2012 Office visit Jada Pulliam FINE ARTS TEACHER 03/04/2012 Office visit Jada Heraclio FINE ARTS TEACHER 01/13/2012 Office visit Ezequiel Mahan MD 01/08/2012 Nurse visit Mikki Carrasco MD 12/16/2011 Voided Ezequiel Mahan MD 11/28/2011 Office visit Ezequiel Mahan MD 10/28/2011 Office visit Jada Pulliam FINE ARTS TEACHER 08/14/2011 Office visit Ezequiel Mahan MD 08/07/2011 Nurse visit Ezequiel Mahan MD 06/03/2011 Office visit Jada Pulliam FINE ARTS TEACHER 05/07/2011 Office visit Ezequiel Mahan MD 04/28/2011 [...]
--- OUTSIDE RECORDS SUMMARY | 2019-12-14 18:14 | XMS REPORT ---
Author Shandra Porter Organization [facility] Address [address] [place], [place] [address] Care Team Providers Care Mechanic Welder Truck Driver Name Role Phone Jada Pulliam PCP Unavailable Allergies and Adverse Reactions Name Reaction Notes ciprofloxacin migraine codeine sulfate Plan of Treatment Planned Activity Comments Planned Date Planned Time Plan/Goal MRI LUMBAR SPINE W/O DYE 11/14/2015 12:00 AM lumbar pain 12/17/2015 2:00 PM [...] 12:00 AM ASSAY THYROID STIM HORMONE Returned 11/15/2015 12:00 AM GLYCOSYLATED HEMOGLOBIN TEST [...] 01/08/2012 12:00 AM Depo-Medrol 40 mg [facility]#[id number] Reviewe d 03/12/2012 12:00 AM URINALYSIS AUTO [...] 12:00 AM Decadron, Per 1 Mg [facility]# [address]-36 Re viewed 01/10/2013 12:00 AM Depo-Medrol, Per 80 Mg [facility]#9484-6275-24 Reviewed 07/05/2013 12:00 AM Prolia, 60 Mg Reviewed 07/20/2013 12:00 AM THER/PROPH/DIAG INJ SC/IM Reviewed 07/20/2013 12:00 AM Depo-Medrol, Per 80 Mg [facility]#6087-9843-79 Reviewed 07/20/2013 12:00 AM Decadron, Per 1 Mg [facility]# [address]-96 Re viewed 05/13/2010 12:00 AM COMPREHEN METABOLIC [...] Reviewed 10/24/2009 12:00 AM Kenalog 40 Mg [facility]#0268-3047-50 Review ed 12/26/2014 12:00 AM Prolia, 60 [...] 37.0 mg/dLLDL (CALC) 82.0 mg/dLTSH 2.080 uIU/mL History Of Immunizations Name Date Admin Mfg Name Mfg Code Trade Name Lot# Route Inj Vis Given Vis Pub CVX Influenza 07/02/2009 Not Entered NE Not Entered Not Entered Not Entered 10/05/2019 10/05/2019 999 Pneumococcal 04/12/2009 Merck & Co., Inc. MSD Pneumovax 23 Int ramuscular Not Entered 10/05/2019 10/05/2019 999 Tdap 07/16/2015 [employer] SKB BOOSTRIX [id number] Intramuscula r Right Deltoid [...] Date Medicare Part A Medicare Part A [id number] Friday, 2013 [place] [employer] [place] [email or web address] [id number] N/A Medicare Part A Medicare P A - Preventive [id number] N/A [employer] Life Insurance [place] Swedish Retriement [id number] N/A Medicare Part B Medicare Of [place] [id number] Friday, 2013 [facility] [id number] 2013 History of Encounters Visit Date Visit Type Provider 11/14/2015 Office visit Jada Pulliam COAL CUTTER 07/16/2015 Nurse visit Jada Pulliam COAL CUTTER 11/30/2014 Office visit Sharon Villanueva 10/18/2014 Office visit Jada Pulliam COAL CUTTER 08/17/2014 Office visit Jaylene Rebolledo MD 06/28/2014 Office visit Jada Pulliam COAL CUTTER 06/01/2014 Office visit Sharon Villanueva 04/28/2014 Nurse visit Jada Pulliam COAL CUTTER 07/20/2013 Office visit Jada Pulliam COAL CUTTER 07/05/2013 Nurse visit Jada Pulliam COAL CUTTER 01/10/2013 Office visit Jada Pulliam COAL CUTTER 12/29/2012 Nurse visit Jada Pulliam COAL CUTTER 06/16/2012 Office visit Jada Pulliam COAL CUTTER 05/04/2012 Office visit Jada Pulliam COAL CUTTER 03/10/2012 Office visit Jada Pulliam COAL CUTTER 03/04/2012 Office visit Jada Pulliam COAL CUTTER 01/13/2012 Office visit Ezequiel Mahan MD 01/08/2012 Nurse visit Mikki Carrasco MD 12/16/2011 Voided Ezequiel Mahan MD 11/28/2011 Office visit Ezequiel Mahan MD 10/28/2011 Office visit Jada Pulliam COAL CUTTER 08/14/2011 Office visit Ezequiel Mahan MD 08/07/2011 Nurse visit Ezequiel Mahan MD 06/03/2011 Office visit Jada Pulliam COAL CUTTER 05/07/2011 Office visit Ezequiel Mahan MD 04/28/2011 Voidvlema Mahan MD 11/18/2010 Office visit Braydon Ramirez [...]
--- OUTSIDE RECORDS SUMMARY | 2019-12-14 18:14 | XMS REPORT ---
Author Author Shandra Pulliam Organization [facility] Address [address] [place], [place] [address] Care Team Providers Care Sports Equipment Repairer Name Role Phone Jada Pulliam PCP Unavailable Allergies and Adverse Reactions Name Reaction Notes ciprofloxacin migraine codeine sulfate Plan of Treatment Planned Activity Comments Planned Date Planned Time Plan/Goal TDAP VACCINE 7 YRS/> IM 07/16/2015 12:00 AM MAMMOGRAM BOTH BREASTS 06/18/2015 12:00 AM Medications [...] AM Depo-Medrol [address] [facility]#[id number] Reviewe d 03/12/2012 12:00 AM URINALYSIS AUTO [...] Per [address] [facility]# [address]-33 Re viewed 01/10/2013 12:00 AM Depo-Medrol, Per [address] [facility]#4575-1864-92 Reviewed 07/05/2013 12:00 AM Prolia, 60 Mg Reviewed 07/20/2013 12:00 AM THER/PROPH/DIAG INJ SC/IM Reviewed 07/20/2013 12:00 AM Depo-Medrol, Per [address] [facility]#9653-1686-33 Reviewed 07/20/2013 12:00 AM Decadron, Per [address] [facility]# [address]-57 Re viewed 05/13/2010 12:00 AM COMPREHEN METABOLIC [...] 10/24/2009 12:00 AM Kenalog 40 Mg [facility]#5384-6079-41 Review ed 12/26/2014 12:00 AM Prolia, 60 [...] Date Medicare Part B Medicare Of [place] [id number] Friday, 2013 [place] [employer] [facility] hia Swiss Life Ins [id number] N/A Medicare Part A Medicare P A - Preventive [id number] N/A Bcbs Bcbs [facility] [id number] 2013 Medicare Part A Medicare Part A [id number] Friday, 2013 [employer] [place] Swiss Retriement [id number] N/A History of Encounters Visit Date Visit Type Provider 07/16/2015 Nurse visit Jada Pulliam DATA PROCESSING CLERK 11/30/2014 Office visit Sharon Villanueva 10/18/2014 Office visit Jada Pulliam DATA PROCESSING CLERK 08/17/2014 Office visit Jaylene Rebolledo MD 06/28/2014 Office visit Jada Pulliam DATA PROCESSING CLERK 06/01/2014 Office visit Sharon Villanueva 04/28/2014 Nurse visit Jada Pulliam DATA PROCESSING CLERK 07/20/2013 Office visit Jada Pulliam DATA PROCESSING CLERK 07/05/2013 Nurse visit Jada Pulliam DATA PROCESSING CLERK 01/10/2013 Office visit Jada Pulliam DATA PROCESSING CLERK 12/29/2012 Nurse visit Jada Pulliam DATA PROCESSING CLERK 06/16/2012 Office visit Jada Pulliam DATA PROCESSING CLERK 05/04/2012 Office visit Jada Pulliam DATA PROCESSING CLERK 03/10/2012 Office visit Jada Pulliam DATA PROCESSING CLERK 03/04/2012 Office visit Jada Pulliam DATA PROCESSING CLERK 01/13/2012 Office visit Ezequiel Mahan MD 01/08/2012 Nurse visit Mikki Carrasco MD 12/16/2011 Voided Ezequiel Mahan MD 11/28/2011 Office visit Ezequiel Mahan MD 10/28/2011 Office visit Jada Pulliam DATA PROCESSING CLERK 08/14/2011 Office visit Ezequiel Mahan MD [...]
--- OUTSIDE RECORDS SUMMARY | 2019-12-14 18:15 | XMS REPORT ---
Author Shandra Mata Organization [facility] Address [address] [place], [place] [address] Care Team Providers Care Delivery Associate Name Role Phone Hermilo Gallego PCP Jada Pulliam PreferredProvider Allergies and Adverse Reactions Name Reaction Notes ciprofloxacin migraine codeine sulfate Plan of Treatment Planned Activity Comments Planned Date Planned Time Plan/Goal Urine Culture, [place] Count 03/04/2016 12:00 AM lumbar pain 12/17/2015 [...] HC BMI BSA BMI Percentile O2 Sat(%) 02/26/2018 9:58:00 AM 147 mmHg 86 mmHg [...] Reviewed 02/29/2016 12:00 AM Rocephin 1 gram [facility]#6407-7634-81 Reviewe d 03/27/2016 12:00 AM INJECT SPINE LUMBAR/SACRAL Reviewed 03/27/2016 12:00 AM URNLS DIP STICK/TABLET RGNT AUTO W/O KATHRIN ROSCOPY Reviewed 03/26/2016 12:00 AM Benadryl, Up to 50 Mg [facility]# 0166-6835-89 Reviewed 04/04/2016 12:00 AM IMMUNOTHERAPY ONE INJECTION Reviewed 10/29/2011 12:00 AM URINALYSIS AUTO W/O SCOPE Reviewed 10/28/2011 12:00 AM COMPLETE CBC W/AUTO DIFF WBC Reviewed 10/28/2011 12:00 AM COMPREHEN METABOLIC PANEL Reviewed 10/28/2011 12:00 AM URINE CULTURE/COLONY COUNT Reviewed 05/22/2016 12:00 AM ALLERGEN SPECIFIC IGE Reviewed 05/22/2016 12:00 AM Decadron, Per 1 Mg [facility]# [address]-01 Re viewed 05/22/2016 12:00 AM Depo-Medrol 40mg [...] 40 mg [facility]#[id number] Reviewe d 09/08/2016 12:00 AM METABOLIC PANEL TOTAL CA Reviewed 09/08/2016 12:00 AM COMPLETE CBC W/AUTO DIFF WBC Reviewed 09/08/2016 12:00 AM RADIOLOGIC EXAM CHEST 2 VIEWS FRONTAL&LA TERAL Reviewed 04/13/2016 12:00 AM Depo-Medrol, Per 80 Mg ND#[address]-97 Reviewed 04/13/2016 12:00 AM Decadron, Per 1 Mg ND# [address]-92 Re viewed 04/13/2016 12:00 AM THER/PROPH/DIAG INJ [...] 01/10/2013 12:00 AM Decadron, Per 1 Mg [facility]# [address]-32 Re viewed 01/10/2013 12:00 AM Depo-Medrol, Per 80 Mg ND#6864-9616-56 Reviewed 07/05/2013 12:00 AM Prolia, 60 Mg Reviewed 07/20/2013 12:00 AM THER/PROPH/DIAG INJ SC/IM Reviewed 07/20/2013 12:00 AM Depo-Medrol, Per 80 Mg NDC#0400-6867-09 Reviewed 07/20/2013 12:00 AM Decadron, Per 1 Mg [facility]# [address]-65 Re viewed 05/13/2010 12:00 AM COMPREHEN METABOLIC [...] 10/24/2009 12:00 AM Kenalog 40 Mg Im-[facility]#8547-7801-58 Review ed 12/26/2014 12:00 AM Prolia, 60 [...] CULT SET UP? YES 05/22/2016 3:30 PM Y848-QzK D pteronyssinus <0. 10 U/cRZ357-LaA D farinae <0.10 U/rCH799-JuG Cat Dander <0.10 K268-ZmY Dog Dander <0.10 U/sPG710-AeY B[place] Grass <0.10 U/tSF301-VpK Bluegrass,[place] <0.10 U/wEP760-EoS [place] Grass <0.10 U/wPT329-UkN Cockroach,Cambodian <0.10 I247-DdR Penicilliumchrysogen <0.10 V176-CnJ Cladosporiumherbarum <0.10 J061-YzY Aspergillusfumigatus <0.10 K216-YcW Mucor racemosus <0.10 Q049-BzM Alternariaalternata <0.10 G466-HqN Stemphyliumherbarum <0.10 Q610-BxE Maple/Todd <0.10 U/rAM059-SuB [place], White <0.10 U/mNF920-ExA Elm, Cambodian <0.10 U/xVN958-OyZ Waka <0.10 U/pTH362-KbW Merlin, White <0.10 U/uLT186-PnD Maple LeafSycamore <0.10 U/sCO981-NeN White [place] <0.10 U/kFZ693-FtH Ragweed, Short <0.10 L666-MlZ [place] <0.10 W009- IgE Plantain,Greek <0.10 H504-TvF Thistle, Bruneian <0.10 B965-ZnJ Pigweed, Common <0.10 C918-ZjI Sheep [place] <0.10 R226-UqQ Milk <0.10 R701-PyQ Wheat <0.10 U/fEB338-EtO [place] <0.10 U/yDB214-ZtK Peanut <0.10 U/rTM524-DeC Soybean <0.10 U/gLZ014-ViU Pork <0.10 U/iGX631-IkU Beef <0.10 U/vKRX72-NsO Food Mix(Seafoods) Negative B850-AaA Egg, Whole <0.10 U/qXO624-CbV Chocolate/Stem <0.10 07/21/2016 3:26 PM GLUCOSE 104.0 mg/dLSODIUM [...] Not Entered 10/05/2019 10/05/2019 999 Tdap 07/16/2015 [employer] SKB BOOSTRIX H9P57 Intramuscula r Right Deltoid [...] Number Start Date Medicare RHC Medicare RHC [id number] N/A [facility] [id number] N/A Medicare Part A Medicare - Lab/Xray [id number] N/A BCBS [facility] [place] [id number] July 05, 2013 Medicare Part A Medicare Part A [id number] Friday, July 05, 2013 [facility] [employer] [place] Retriement [id number] N/A Medicare Part B Medicare [facility] [id number] Friday, July 05, 2013 [place] [facility] Camb[place]ian Life Ins [id number] N/A Medicare Part A ZZZMedicare P A - Preventive [id number] N/A History of Encounters Visit Date Visit Type Provider 02/26/2018 Procedures Hermilo Gallego DO 01/03/2018 Office visit Katharina Murdock APR N 10/08/2017 Office visit Jada Pulliam LINUX ADMIN ENGINEER 10/06/2017 Office visit Jada Pulliam LINUX ADMIN ENGINEER 10/07/2016 [facility] Jessica Dhaliwal MD 08/12/2016 Office visit Jada Pulliam LINUX ADMIN ENGINEER 08/05/2016 Office visit Jada Pulliam LINUX ADMIN ENGINEER 07/21/2016 Office visit Jada Pulliam LINUX ADMIN ENGINEER 07/10/2016 [facility] Sage Green MD 07/09/2016 Office visit Valorie MCCLURE 07/09/2016 [facility] Jessica Dhaliwal MD 05/22/2016 Nurse visit Jada Pulliam LINUX ADMIN ENGINEER 04/13/2016 Office visit Katharina Murdock APR N 04/04/2016 Nurse visit Jada Pulliam LINUX ADMIN ENGINEER 03/26/2016 Office visit Jada Pulliam LINUX ADMIN ENGINEER 02/29/2016 Office visit Jada Pulliam LINUX ADMIN ENGINEER 01/09/2016 Office visit Jada Pulliam LINUX ADMIN ENGINEER 11/14/2015 Office visit Jada Pulliam LINUX ADMIN ENGINEER 07/16/2015 Nurse visit Jada Pulliam LINUX ADMIN ENGINEER 11/30/2014 Office visit Sharon Villanueva 10/18/2014 Office visit Jada Pulliam LINUX ADMIN ENGINEER 08/17/2014 Office visit Jaylene Rebolledo MD 06/28/2014 Office visit Jada Pulliam LINUX ADMIN ENGINEER 06/01/2014 Office visit Sharon Villanueva 04/28/2014 Nurse visit Jada Pulliam LINUX ADMIN ENGINEER 07/20/2013 Office visit Jada Pullaim LINUX ADMIN ENGINEER 07/05/2013 Nurse visit Jada Pulliam LINUX ADMIN ENGINEER 01/10/2013 Office visit Jada Pulliam LINUX ADMIN ENGINEER 12/29/2012 Nurse visit Jada Pulliam LINUX ADMIN ENGINEER 06/16/2012 Office visit Jada Pulliam LINUX ADMIN ENGINEER 05/04/2012 Office visit Jada Pulliam LINUX ADMIN ENGINEER 03/10/2012 Office visit Jada Pulliam LINUX ADMIN ENGINEER 03/04/2012 Office visit Jada Pulliam LINUX ADMIN ENGINEER 01/13/2012 Office visit Ezequiel Mahan MD 01/08/2012 Nurse visit Mikki Carrasco MD 12/16/2011 Voided Ezequiel Mahan MD 11/28/2011 Office visit Ezequiel Mahan MD 10/28/2011 Office visit Jada Heraclio LINUX ADMIN ENGINEER 08/14/2011 Office visit Ezequiel Mahan MD 08/07/2011 Nurse visit Ezequiel Mahan MD 06/03/2011 Office visit Jada Pulliam LINUX ADMIN ENGINEER 05/07/2011 Office visit Ezequiel Mahan MD [...]
--- OUTSIDE RECORDS SUMMARY | 2019-12-14 18:16 | XMS REPORT ---
Author Shandra Porter Organization [facility] Address [address] [place], [place] [address] Care Team Providers Care Electron Gun Assembler Name Role Phone Jada Pulliam PCP Unavailable Allergies and Adverse Reactions Name Reaction Notes ciprofloxacin migraine codeine sulfate Plan of Treatment Planned Activity Comments Planned Date Planned Time Plan/Goal URINE CULTURE/COLONY COUNT 03/04/2016 12:00 AM IMMUNOTHERAPY ONE INJECTION 04/04/2016 12:00 AM lumbar pain 12/17/2015 2:00 PM [...] 1,000 mg oral capsule take 1 cap leiane by oral route daily Estrace 0.01 % [...] Returned 02/29/2016 12:00 AM Rocephin 1 gram [facility]#2526-3483-57 Reviewe d 03/27/2016 12:00 AM URNLS DIP STICK/TABLET RGNT AUTO W/O KATHRIN ROSCOPY Returned 03/26/2016 12:00 AM Benadryl, Up to 50 Mg [facility]# 1829-8101-44 Reviewed 10/29/2011 12:00 AM URINALYSIS AUTO W/O SCOPE Reviewed 10/28/2011 12:00 AM COMPLETE CBC W/AUTO DIFF WBC Returned 10/28/2011 12:00 AM COMPREHEN METABOLIC PANEL Returned 10/28/2011 12:00 AM URINE CULTURE/COLONY COUNT Returned 01/08/2012 12:00 AM THER/PROPH/DIAG INJ SC/IM Reviewed 01/08/2012 12:00 AM Depo-Medrol 40 mg [facility]#[id number] Reviewe d 03/12/2012 12:00 AM URINALYSIS AUTO [...] 01/10/2013 12:00 AM Decadron, Per 1 Mg [facility]# [address]-94 Re viewed 01/10/2013 12:00 AM Depo-Medrol, Per 80 Mg ND#9655-6112-08 Reviewed 07/05/2013 12:00 AM Prolia, 60 Mg Reviewed 07/20/2013 12:00 AM THER/PROPH/DIAG INJ SC/IM Reviewed 07/20/2013 12:00 AM Depo-Medrol, Per 80 Mg ND#4560-5095-55 Reviewed 07/20/2013 12:00 AM Decadron, Per 1 Mg [facility]# [address]-87 Re viewed 05/13/2010 12:00 AM COMPREHEN METABOLIC [...] 40 Mg Im-[facility]#0297-1635-82 Review ed 12/26/2014 12:00 AM Prolia, 60 [...] 2016 3:17PM Hives Apr 04 2016 6:03PM Payers Insurance Name Company Name Plan Name Plan Number Policy Number Sanjay cy Group Number Start Date Medicare Part A Medicare RHC [id number] N/A [place] [employer] Insurance Health Outcomes [employer] [facility] Zostel Ins [id number] N/A Medicare Part A Medicare P A - Preventive [id number] N/A Medicare Part A Medicare - Lab/Xray [id number] N/A [facility] [id number] July 05, 2013 Medicare Part A Medicare Part A [id number] Friday, July 05, 2013 [facility] [employer] [place] Citizen [place] Retriement [id number] N/A Medicare Part B Medicare Of [place] [id number] Friday, July 05, 2013 History of Encounters Visit Date Visit Type Provider 04/04/2016 Nurse visit Jada Pulliam THIRD MATE 03/26/2016 Office visit Jada Pulliam THIRD MATE 02/29/2016 Office visit Jada Pulliam THIRD MATE 01/09/2016 Office visit Jada Pulliam THIRD MATE 11/14/2015 Office visit Jada Pulliam THIRD MATE 07/16/2015 Nurse visit Jada Pulliam THIRD MATE 11/30/2014 Office visit Sharon Villanueva 10/18/2014 Office visit Jada Pulliam THIRD MATE 08/17/2014 Office visit Jaylene Rebolledo MD 06/28/2014 Office visit Jada Pulliam THIRD MATE 06/01/2014 Office visit Sharon Villanueva 04/28/2014 Nurse visit Jada Pulliam THIRD MATE 07/20/2013 Office visit Jada Pulliam THIRD MATE 07/05/2013 Nurse visit Jada Pulliam THIRD MATE 01/10/2013 Office visit Jada Pulliam THIRD MATE 12/29/2012 Nurse visit Jada Pulliam THIRD MATE 06/16/2012 Office visit Jada Pulliam THIRD MATE 05/04/2012 Office visit Jada Pulliam THIRD MATE 03/10/2012 Office visit Jada Pulliam THIRD MATE 03/04/2012 Office visit Jada Pulliam THIRD MATE 01/13/2012 Office visit Ezequiel Mahan MD 01/08/2012 Nurse visit Mikki Carrasco MD 12/16/2011 Voided Ezequiel Mahan MD 11/28/2011 Office visit Ezequiel Mahan MD 10/28/2011 Office visit Jada Pulliam THIRD MATE 08/14/2011 Office visit Ezequiel Mahan MD 08/07/2011 Nurse visit Ezequiel Mahan MD 06/03/2011 Office visit Jada Pulliam THIRD MATE 05/07/2011 Office visit Ezequiel Mahan MD 04/28/2011 [...]
--- OUTSIDE RECORDS SUMMARY | 2019-12-14 18:16 | XMS REPORT ---
Author Shandra Porter Organization [facility] Address [address] [place], [place] [address] Care Team Providers Care Court Magistrate Name Role Phone Jada Pulliam PCP Unavailable Allergies and Adverse Reactions Name Reaction Notes ciprofloxacin migraine codeine sulfate Plan of Treatment Planned Activity Comments Planned Date Planned Time Plan/Goal MRI LUMBAR SPINE W/O DYE 11/14/2015 12:00 AM MAMMOGRAM BOTH BREASTS 06/18/2015 12:00 [...] gabapentin 100 mg oral capsule 11/14/2015 T KINDRA ONE CAPSULE BY MOUTH TWICE [...] 01/08/2012 12:00 AM Depo-Medrol 40 mg [facility]#[id number] Reviewe d 03/12/2012 12:00 AM URINALYSIS AUTO [...] 12:00 AM Decadron, Per 1 Mg [facility]# [address]-66 Re viewed 01/10/2013 12:00 AM Depo-Medrol, Per 80 Mg [facility]#5788-4202-73 Reviewed 07/05/2013 12:00 AM Prolia, 60 Mg Reviewed 07/20/2013 12:00 AM THER/PROPH/DIAG INJ SC/IM Reviewed 07/20/2013 12:00 AM Depo-Medrol, Per 80 Mg [facility]#0373-8119-45 Reviewed 07/20/2013 12:00 AM Decadron, Per 1 Mg [facility]# [address]-68 Re viewed 05/13/2010 12:00 AM COMPREHEN METABOLIC [...] 12:00 AM Kenalog 40 Mg [facility]#9475-4432-30 Review ed 12/26/2014 12:00 AM Prolia, 60 [...] Not Entered 10/05/2019 10/05/2019 999 Tdap 07/16/2015 [facility] SKB BOOSTRIX H9P57 Intramuscula r Right Deltoid [...] 1:39PM BMI 34.0-34.9,adult Nov 14 2015 1:39PM Payers Insurance Name Company Name Plan Name Plan Number Policy Number Sanjay cy Group Number Start Date Medicare Part A Medicare Part A [id number] Friday, 2013 [employer] [facility] [employer] [id number] N/A Medicare Part A Medicare P A - Preventive [id number] N/A [employer] [place] Islander [employer] Co [place] Island[place] Retriement [id number] N/A Medicare Part B Medicare [facility] [id number] Friday, 2013 BCBS [facility] [place] [id number] 2013 History of Encounters Visit Date Visit Type Provider 11/14/2015 Office visit Jada Pulliam AIR CONDITIONING MECHANIC INDUSTRIAL 07/16/2015 Nurse visit Jada Pulliam AIR CONDITIONING MECHANIC INDUSTRIAL 11/30/2014 Office visit Sharon Villanueva 10/18/2014 Office visit Jada Pulliam AIR CONDITIONING MECHANIC INDUSTRIAL 08/17/2014 Office visit Jaylene Rebolledo MD 06/28/2014 Office visit Jada Pulliam AIR CONDITIONING MECHANIC INDUSTRIAL 06/01/2014 Office visit Sharon Villanueva 04/28/2014 Nurse visit Jada Pulliam AIR CONDITIONING MECHANIC INDUSTRIAL 07/20/2013 Office visit Jada Pulliam AIR CONDITIONING MECHANIC INDUSTRIAL 07/05/2013 Nurse visit Jada Pulliam AIR CONDITIONING MECHANIC INDUSTRIAL 01/10/2013 Office visit Jada Pulliam AIR CONDITIONING MECHANIC INDUSTRIAL 12/29/2012 Nurse visit Jada Pulliam AIR CONDITIONING MECHANIC INDUSTRIAL 06/16/2012 Office visit Jada Pulliam AIR CONDITIONING MECHANIC INDUSTRIAL 05/04/2012 Office visit Jada Pulliam AIR CONDITIONING MECHANIC INDUSTRIAL 03/10/2012 Office visit Jada Pulliam AIR CONDITIONING MECHANIC INDUSTRIAL 03/04/2012 Office visit Jada Pulliam AIR CONDITIONING MECHANIC INDUSTRIAL 01/13/2012 Office visit Ezequiel Mahan MD 01/08/2012 [...] 08/16/2009 Office visit Braydon Ramirez DO 08/15/2009 Trever Ramirez DO 07/02/2009 Office visit Braydon Ramirez DO
--- OUTSIDE RECORDS SUMMARY | 2019-12-14 18:17 | XMS REPORT ---
Author Shandra Porter Organization [facility] Address [address] [place], [place] [address] Care Team Providers Care Relay Mechanic Name Role Phone Jada Pulliam PCP Unavailable [...] BY MOUTH ONCE DAILY AT BEDTIME gabapentin 100 mg oral capsule 11/14/2015 T [...] once daily at bedtime for 30 days Name Start Date Expiration [...] 01/08/2012 12:00 AM Depo-Medrol [address] [facility]#[id number] Reviewe d 03/12/2012 12:00 AM URINALYSIS AUTO [...] 12:00 AM Decadron, Per [address] [facility]# [address]-57 Re viewed 01/10/2013 12:00 AM Depo-Medrol, Per [address] [facility]#2453-9849-68 Reviewed 07/05/2013 12:00 AM Prolia, 60 Mg Reviewed 07/20/2013 12:00 AM THER/PROPH/DIAG INJ SC/IM Reviewed 07/20/2013 12:00 AM Depo-Medrol, Per [address] [facility]#3378-2709-56 Reviewed 07/20/2013 12:00 AM Decadron, Per [address] [facility]# [address]-00 Re viewed 05/13/2010 12:00 AM COMPREHEN METABOLIC [...] Reviewed 10/24/2009 12:00 AM Kenalog 40 Mg [facility]#4835-0760-39 Review ed 12/26/2014 12:00 AM Prolia, 60 [...] Not Entered 10/05/2019 10/05/2019 999 Tdap 07/16/2015 [place] SKB BOOSTRIX H9P57 Intramuscula r Right Deltoid [...] Date Medicare Part A Medicare Part A [id number] Friday, 2013 [place] [employer] Company [facility] hi Georgian Life Ins [id number] N/A Medicare Part A Medicare P A - Preventive [id number] N/A [facility] [place] Life Insurance [place] Retriement [id number] N/A Medicare Part B Medicare Of [place] [id number] Friday, 2013 BCBS [facility] [id number] 2013 History of Encounters Visit Date Visit Type Provider 11/14/2015 Office visit Jada Pulliam RETAIL MANAGER 07/16/2015 Nurse visit Jada Pulliam RETAIL MANAGER 11/30/2014 Office visit Sharon Villanueva 10/18/2014 Office visit Jada Pulliam RETAIL MANAGER 08/17/2014 Office visit Jaylene Rebolledo MD 06/28/2014 Office visit Jada Pulliam RETAIL MANAGER 06/01/2014 Office visit Sharon Villanueva 04/28/2014 Nurse visit Jada Pulliam RETAIL MANAGER 07/20/2013 Office visit Jada Pulliam RETAIL MANAGER 07/05/2013 Nurse visit Jada Pulliam RETAIL MANAGER 01/10/2013 Office visit Jada Pulliam RETAIL MANAGER 12/29/2012 Nurse visit Jada Pulliam RETAIL MANAGER 06/16/2012 Office visit Jada Pulliam RETAIL MANAGER 05/04/2012 Office visit Jada Pulliam RETAIL MANAGER 03/10/2012 Office visit Jada Pulliam RETAIL MANAGER 03/04/2012 Office visit Jada Pulliam RETAIL MANAGER 01/13/2012 Office visit Ezequiel Mahan MD 01/08/2012 Nurse visit Mikki Carrasco MD 12/16/2011 Voided Ezequiel Mahan MD 11/28/2011 Office visit Ezequiel Mahan MD 10/28/2011 Office visit Jada Pulliam RETAIL MANAGER 08/14/2011 Office visit Ezequiel Mahan MD 08/07/2011 Nurse visit Ezequiel Mahan MD 06/03/2011 Office visit Jada Pulliam RETAIL MANAGER 05/07/2011 Office visit Ezequiel Mahan MD 04/28/2011 [...]
--- OUTSIDE RECORDS SUMMARY | 2019-12-14 18:17 | XMS REPORT ---
Author Author Shandra Bustillos Organization [facility] Address [address] [place] [address] Care Team Providers Care Water Resource Consultant Name Role Phone Sharon Bustillos PCP Allergies [...] Reviewed 01/08/2012 12:00 AM Depo-Medrol 40 mg [facility]#[id number] Reviewe d 03/12/2012 12:00 AM URINALYSIS AUTO [...] 01/10/2013 12:00 AM Decadron, Per 1 Mg [facility]# [address]-02 Re viewed 01/10/2013 12:00 AM Depo-Medrol, Per 80 Mg [facility]#9022-1410-60 Reviewed 07/05/2013 12:00 AM Prolia, 60 Mg Reviewed 07/20/2013 12:00 AM THER/PROPH/DIAG INJ SC/IM Reviewed 07/20/2013 12:00 AM Depo-Medrol, Per 80 Mg [facility]#6528-4848-74 Reviewed 07/20/2013 12:00 AM Decadron, Per 1 Mg [facility]# [address]-00 Re viewed 05/13/2010 12:00 AM COMPREHEN METABOLIC [...] Reviewed 10/24/2009 12:00 AM Kenalog 40 Mg [facility]#3421-4356-73 Review ed 12/26/2014 12:00 AM Prolia, 60 [...] 4.91 HGB 14.80 g/dLHCT 45.20 %MCV 92.0 [facility] 30.10 [facility] 32.70 g/dLRDW CV 13.40 %MPV 10.40 fLPLT [...] 2015 3:57PM Osteopenia Jul 09 2015 8:09AM Payers Insurance Name Company Name Plan Name Plan Number Policy Number Sanjay cy Group Number Start Date Medicare Part B Medicare Of [place] [id number] Friday, 2013 [place] [employer] [facility] hia [place]er Life Ins [id number] N/A Medicare Part A Medicare P A - Preventive [id number] N/A [facility] [id number] 2013 Medicare Part A Medicare Part A [id number] Friday, 2013 [facility] [place] Retriement [id number] N/A History of Encounters Visit Date Visit Type Provider 11/30/2014 Office visit Sharon Villanueva 10/18/2014 Office visit Jada Pulliam SENIOR INTEGRATION DEVELOPER 08/17/2014 Office visit Jaylene Rebolledo MD 06/28/2014 Office visit Jada Pulliam SENIOR INTEGRATION DEVELOPER 06/01/2014 Office visit Sharon Villanueva 04/28/2014 Nurse visit Jada Pulliam SENIOR INTEGRATION DEVELOPER 07/20/2013 Office visit Jada Pulliam SENIOR INTEGRATION DEVELOPER 07/05/2013 Nurse visit Jada Pulliam SENIOR INTEGRATION DEVELOPER 01/10/2013 Office visit Jada Pulliam SENIOR INTEGRATION DEVELOPER 12/29/2012 Nurse visit Jada Pulliam SENIOR INTEGRATION DEVELOPER 06/16/2012 Office visit Jada Pulliam SENIOR INTEGRATION DEVELOPER 05/04/2012 Office visit Jada Pulliam SENIOR INTEGRATION DEVELOPER 03/10/2012 Office visit Jada Pulliam SENIOR INTEGRATION DEVELOPER 03/04/2012 Office visit Jada Pulliam SENIOR INTEGRATION DEVELOPER 01/13/2012 Office visit Ezequiel Mahan MD 01/08/2012 [...] visit Braydon Ramirez DO 08/16/2009 Office visit Barydon Ramirez DO 08/15/2009 Laboratory Braydon Ramirez DO 07/02/2009 Office visit Braydon Ramirez DO
--- OUTSIDE RECORDS SUMMARY | 2019-12-14 18:18 | XMS REPORT ---
Author Shandra Porter Organization [facility] Address [address] [place], [place] [address] Care Team Providers Care Sap Basis Name Role Phone Jada Pulliam PCP Unavailable [...] by oral route 2 times per day Lexapro 10 mg oral tablet 06/30/2016 07/30/2016 take 1 tablet (10 mg) by oral route once daily for 30 days Xanax 0.25 mg oral tablet 06/30/2016 Take one tablet daily at needed Keflex oral Name Start Date Expiration Date SIG Comments [...] HC BMI BSA BMI Percentile O2 Sat(%) 07/21/2016 2:43:00 PM 124 mmHg 62 mmHg [...] Returned 02/29/2016 12:00 AM Rocephin 1 gram [facility]#4053-1662-36 Reviewe d 03/27/2016 12:00 AM URNLS DIP STICK/TABLET RGNT AUTO W/O KATHRIN ROSCOPY Returned 03/26/2016 12:00 AM Benadryl, Up to 50 Mg [facility]# 6103-7782-26 Reviewed 04/04/2016 12:00 AM IMMUNOTHERAPY ONE INJECTION Reviewed 04/13/2016 12:00 AM Depo-Medrol, Per 80 Mg [facility]#[address]-12 Reviewed 04/13/2016 12:00 AM Decadron, Per 1 Mg [facility]# [address]-72 Re viewed 04/13/2016 12:00 AM THER/PROPH/DIAG INJ SC/IM Reviewed 10/29/2011 12:00 AM URINALYSIS AUTO W/O SCOPE Reviewed 10/28/2011 12:00 AM COMPLETE CBC W/AUTO DIFF WBC Returned 10/28/2011 12:00 AM COMPREHEN METABOLIC PANEL Returned 10/28/2011 12:00 AM URINE CULTURE/COLONY COUNT Returned 05/22/2016 12:00 AM ALLERGEN SPECIFIC IGE Returned 05/22/2016 12:00 AM Decadron, Per 1 Mg [facility]# [address]-39 Re viewed 05/22/2016 12:00 AM Depo-Medrol 40mg Reviewed 05/22/2016 12:00 AM THER/PROPH/DIAG INJ SC/IM Reviewed 07/21/2016 12:00 AM METABOLIC PANEL TOTAL CA Returned 07/21/2016 12:00 AM COMPLETE CBC W/AUTO DIFF WBC Returned 01/08/2012 12:00 AM THER/PROPH/DIAG INJ SC/IM Reviewed 01/08/2012 12:00 AM Depo-Medrol 40 mg [facility]#[id number] Reviewe d 03/12/2012 12:00 AM URINALYSIS AUTO [...] 01/10/2013 12:00 AM Decadron, Per 1 Mg [facility]# [address]-64 Re viewed 01/10/2013 12:00 AM Depo-Medrol, Per 80 Mg [facility]#8181-8460-31 Reviewed 07/05/2013 12:00 AM Prolia, 60 Mg Reviewed 07/20/2013 12:00 AM THER/PROPH/DIAG INJ SC/IM Reviewed 07/20/2013 12:00 AM Depo-Medrol, Per 80 Mg [facility]#9271-7521-46 Reviewed 07/20/2013 12:00 AM Decadron, Per 1 Mg [facility]# [address]-72 Re viewed 05/13/2010 12:00 AM COMPREHEN METABOLIC [...] 40 Mg [facility] [place]#2978-1050-94 Review ed 12/26/2014 12:00 AM Prolia, 60 [...] /HPFTRICHOMONAS NEGATIVE YEAST NEGATIVE 05/22/2016 3:30 PM I442-UoN D pteronyssinus <0. 10 U/fBF982-JjH D farinae <0.10 U/bWA477-DtE Cat Dander <0.10 U089-SzX Dog Dander <0.10 U/yLC192-NqZ [place] Grass <0.10 U/aZR105-BeP Bluegrass,[place] <0.10 U/nIX773-PaH [place] Grass <0.10 U/uZW650-GqP Maple/[place] <0.10 U/uCS678-ZpW [place], White <0.10 U/lNX033- IgE Elm, Finnish <0.10 U/pID557-SrR [place] <0.10 U/wXP877-YxR Merlin, White <0.10 U/tVK157-FeN Maple LeafSycamore <0.10 U/pAN942-PzY White [place] <0.10 U/kVQ089-BqF Milk <0.10 N350-WxI Wheat <0.10 U/fNQ273-ZuL [place] <0.10 U/dPX474- IgE Peanut <0.10 U/rNT309-KfI Soybean <0.10 U/zZJ725-PyF Pork <0.10 U/gQB435-DgD Beef <0.10 U/wQDH00-AeB Food Mix(Seafoods) Negative V125-DrM Egg, Whole <0.10 U/wPJ684-RkF Chocolate/[place] <0.10 07/21/2016 3:26 PM GLUCOSE 104.0 mg/dLSODIUM [...] Not Entered 10/05/2019 10/05/2019 999 Tdap 07/16/2015 [employer] SKB BOOSTRIX H9P57 Intramuscula r Right Deltoid [...] 2:45PM Resolved Urticaria Jul 21 2016 2:45PM Payers Insurance Name Company Name Plan Name Plan Number Policy Number Sanjay cy Group Number Start Date Medicare Part A Medicare RHC [id number] N/A [place] [employer] [facility] Flukle Ins [id number] N/A Medicare Part A ZZZMedicare P A - Preventive [id number] N/A Medicare Part A Medicare - Lab/Xray [id number] N/A BCBS Bcbs [facility] [id number] July 05, 2013 Medicare Part A Medicare Part A [id number] Friday, July 05, 2013 [employer] Finnish Retriement [id number] N/A Medicare Part B Medicare Of [place] [id number] Friday, July 05, 2013 History of Encounters Visit Date Visit Type Provider 07/21/2016 Office visit Jada Pulliam APRN 07/10/2016 [facility] Sage Green MD 07/09/2016 Office visit Valorie MCCLURE 05/22/2016 Nurse visit Jada Pulliam FRAME TRIMMER 04/13/2016 Office visit Katharina Murdock APR N 04/04/2016 Nurse visit Jada Pulliam FRAME TRIMMER 03/26/2016 Office visit Jada Pulliam FRAME TRIMMER 02/29/2016 Office visit Jada Pulliam FRAME TRIMMER 01/09/2016 Office visit Jada Pulliam FRAME TRIMMER 11/14/2015 Office visit Jada Pulliam APRN 07/16/2015 Nurse visit Jada Pulliam APRN 11/30/2014 Office visit Sharon Villanueva 10/18/2014 Office visit Jada Pulliam APRN 08/17/2014 Office visit Jaylene Rebolledo MD 06/28/2014 Office visit Jada Pulliam APRN 06/01/2014 Office visit Sharon Villanueva 04/28/2014 Nurse visit Jada Pulliam APRN 07/20/2013 Office visit Jada Pulliam FRAME TRIMMER 07/05/2013 Nurse visit Jada Pulliam FRAME TRIMMER 01/10/2013 Office visit Jada Pulliam FRAME TRIMMER 12/29/2012 Nurse visit Jada Pulliam FRAME TRIMMER 06/16/2012 Office visit Jada Pulliam FRAME TRIMMER 05/04/2012 Office visit Jada Pulliam FRAME TRIMMER 03/10/2012 Office visit Jada Pulliam FRAME TRIMMER 03/04/2012 Office visit Jada Pulliam FRAME TRIMMER 01/13/2012 Office visit Ezequiel Mahan MD 01/08/2012 Nurse visit Mikki Carrasco MD 12/16/2011 Voided Ezequiel Mahan MD 11/28/2011 Office visit Ezequiel Mahan MD 10/28/2011 Office visit Jada Pulliam FRAME TRIMMER 08/14/2011 Office visit Ezequiel Mahan MD 08/07/2011 Nurse visit Ezequiel Mahan MD 06/03/2011 Office visit Jada Heraclio FRAME TRIMMER 05/07/2011 Office visit Ezequiel Mahan MD 04/28/2011 [...]
--- OUTSIDE RECORDS SUMMARY | 2019-12-14 18:18 | XMS REPORT ---
Author Shandra Porter Organization [facility] Address [address] [place], [place] [address] Care Team Providers Care Diagnostic Cardiac Sonographer Name Role Phone Jada Pulliam PCP Unavailable [...] Returned 02/29/2016 12:00 AM Rocephin 1 gram [facility]#0304-9983-69 Reviewe d 03/26/2016 12:00 AM Benadryl, Up to 50 Mg [facility]# 9391-0772-14 Reviewed 10/29/2011 12:00 AM URINALYSIS AUTO W/O SCOPE Reviewed 10/28/2011 12:00 AM COMPLETE CBC W/AUTO DIFF WBC Returned 10/28/2011 12:00 AM COMPREHEN METABOLIC PANEL Returned 10/28/2011 12:00 AM URINE CULTURE/COLONY COUNT Returned 01/08/2012 12:00 AM THER/PROPH/DIAG INJ SC/IM Reviewed 01/08/2012 12:00 AM Depo-Medrol 40 mg [facility]#[id number] Reviewe d 03/12/2012 12:00 AM URINALYSIS AUTO [...] 01/10/2013 12:00 AM Decadron, Per 1 Mg [facility]# [address]-70 Re viewed 01/10/2013 12:00 AM Depo-Medrol, Per 80 Mg [facility]#5830-0231-06 Reviewed 07/05/2013 12:00 AM Prolia, 60 Mg Reviewed 07/20/2013 12:00 AM THER/PROPH/DIAG INJ SC/IM Reviewed 07/20/2013 12:00 AM Depo-Medrol, Per 80 Mg [facility]#6147-7301-76 Reviewed 07/20/2013 12:00 AM Decadron, Per 1 Mg [facility]# [address]-28 Re viewed 05/13/2010 12:00 AM COMPREHEN METABOLIC [...] AM Kenalog 40 Mg [facility]#7784-0214-83 Review ed 12/26/2014 12:00 AM Prolia, 60 [...] Not Entered 10/05/2019 10/05/2019 999 Tdap 07/16/[address] [facility] SKB BOOSTRIX H9P57 Intramuscula r Right [...] Number Start Date Medicare Part A Medicare [facility] [id number] N/A [employer] Insurance Company [facility] [id number] N/A Medicare Part A Medicare P A - Preventive [id number] N/A Medicare Part A Medicare - Lab/Xray [id number] N/A BCBS [facility] [id number] July 05, 2013 Medicare Part A Medicare Part A [id number] Friday, July 05, 2013 [employer] [place] Retriement [id number] N/A Medicare Part B Medicare Of [place] [id number] Friday, July 05, 2013 History of Encounters Visit Date Visit Type Provider 03/26/2016 Office visit Jada Pulliam DIGITAL CONTENT MARKETING MANAGER 02/29/2016 Office visit Jada Pulliam DIGITAL CONTENT MARKETING MANAGER 01/09/2016 Office visit Jada Pulliam DIGITAL CONTENT MARKETING MANAGER 11/14/2015 Office visit Jada Pulliam DIGITAL CONTENT MARKETING MANAGER 07/16/2015 Nurse visit Jada Pulliam DIGITAL CONTENT MARKETING MANAGER 11/30/2014 Office visit Sharon Villanueva 10/18/2014 Office visit Jada Pulliam DIGITAL CONTENT MARKETING MANAGER 08/17/2014 Office visit Jaylene Rebolledo MD 06/28/2014 Office visit Jada Pulliam DIGITAL CONTENT MARKETING MANAGER 06/01/2014 Office visit Sharon Villanueva 04/28/2014 Nurse visit Jada Pulliam DIGITAL CONTENT MARKETING MANAGER 07/20/2013 Office visit Jada Pulliam DIGITAL CONTENT MARKETING MANAGER 07/05/2013 Nurse visit Jada Pulliam DIGITAL CONTENT MARKETING MANAGER 01/10/2013 Office visit Jada Pulliam DIGITAL CONTENT MARKETING MANAGER 12/29/2012 Nurse visit Jada Pulliam DIGITAL CONTENT MARKETING MANAGER 06/16/2012 Office visit Jada Pulliam DIGITAL CONTENT MARKETING MANAGER 05/04/2012 Office visit Jada Pulliam DIGITAL CONTENT MARKETING MANAGER 03/10/2012 Office visit Jada Pulliam DIGITAL CONTENT MARKETING MANAGER 03/04/2012 Office visit Jada Pulliam DIGITAL CONTENT MARKETING MANAGER 01/13/2012 Office visit Ezequiel Mahan MD [...]
--- OUTSIDE RECORDS SUMMARY | 2019-12-14 18:19 | XMS REPORT ---
Author Shandra Mata Organization [facility] Address [address] [place], [place] [address] Care Team Providers Care Candy Separator Hard Name Role Phone Hermilo Gallego PCP Jada Pulliam PreferredProvider Allergies and Adverse Reactions Name Reaction Notes ciprofloxacin migraine codeine sulfate Plan of Treatment Planned Activity Comments Planned Date Planned Time Plan/Goal Urine Culture, [place] Count 03/04/2016 12:00 AM lumbar pain 12/17/2015 [...] Rocephin 1 gram [facility]#9852-6719-69 Reviewe d 03/27/2016 12:00 AM INJECT SPINE LUMBAR/SACRAL Reviewed 03/27/2016 12:00 AM URNLS DIP STICK/TABLET RGNT AUTO W/O KATHRIN ROSCOPY Reviewed 03/26/2016 12:00 AM Benadryl, Up to 50 Mg [facility]# 4986-3582-03 Reviewed 04/04/2016 12:00 AM IMMUNOTHERAPY ONE INJECTION Reviewed 10/29/2011 12:00 AM URINALYSIS AUTO W/O SCOPE Reviewed 10/28/2011 12:00 AM COMPLETE CBC W/AUTO DIFF WBC Reviewed 10/28/2011 12:00 AM COMPREHEN METABOLIC PANEL Reviewed 10/28/2011 12:00 AM URINE CULTURE/COLONY COUNT Reviewed 05/22/2016 12:00 AM ALLERGEN SPECIFIC IGE Reviewed 05/22/2016 12:00 AM Decadron, Per 1 Mg [facility]# [address]-96 Re viewed 05/22/2016 12:00 AM Depo-Medrol 40mg [...] Depo-Medrol 40 mg [facility]#[id number] Reviewe d 09/08/2016 12:00 AM METABOLIC PANEL TOTAL CA Reviewed 09/08/2016 12:00 AM COMPLETE CBC W/AUTO DIFF WBC Reviewed 09/08/2016 12:00 AM RADIOLOGIC EXAM CHEST 2 VIEWS FRONTAL&LA TERAL Reviewed 04/13/2016 12:00 AM Depo-Medrol, Per 80 Mg [place]#[address]-73 Reviewed 04/13/2016 12:00 AM Decadron, Per 1 Mg ND# [address]-93 Re viewed 04/13/2016 12:00 AM THER/PROPH/DIAG INJ [...] 12:00 AM Decadron, Per 1 Mg [facility]# [address]-59 Re viewed 01/10/2013 12:00 AM Depo-Medrol, Per 80 Mg [facility]#1793-5284-08 Reviewed 07/05/2013 12:00 AM Prolia, 60 Mg Reviewed 07/20/2013 12:00 AM THER/PROPH/DIAG INJ SC/IM Reviewed 07/20/2013 12:00 AM Depo-Medrol, Per 80 Mg [facility]#2342-3980-29 Reviewed 07/20/2013 12:00 AM Decadron, Per 1 Mg [facility]# [address]-23 Re viewed 05/13/2010 12:00 AM COMPREHEN METABOLIC [...] 10/24/2009 12:00 AM Kenalog 40 Mg [facility]#5419-2254-27 Review ed 12/26/2014 12:00 AM Prolia, 60 [...] CULT SET UP? YES 05/22/2016 3:30 PM D854-UjR D pteronyssinus <0. 10 U/xSJ715-GwO D farinae <0.10 U/nKL071-YcP Cat Dander <0.10 H459-LzK Dog Dander <0.10 U/mHG094-HdR [place] Grass <0.10 U/zHU787-WvK Bluegrass,[place] <0.10 U/rVN507-HaH [place] Grass <0.10 U/uXL638-YnO Cockroach,[place] Zealander <0.10 O736-LnB Penicilliumchrysogen <0.10 Z211-MnJ Cladosporiumherbarum <0.10 J403-JbJ Aspergillusfumigatus <0.10 B349-ZbN Mucor racemosus <0.10 K424-SxG Alternariaalternata <0.10 B541-DnE Stemphyliumherbarum <0.10 I189-ZyQ Maple/[place] <0.10 U/nTL165-SdM [place], White <0.10 U/gVJ625-BwN Elm, [place]alander <0.10 U/aXI172-PaT [place] <0.10 U/iUF546-BvZ Merlin, White <0.10 U/hQE805-XnX Maple LeafSycamore <0.10 U/oKJ831-QaB White [place] <0.10 U/vKR524-VxZ Ragweed, [place] <0.10 H317-CxV [place] <0.10 W009- IgE Plantain,Turk[place] <0.10 D127-GtD Thistle, [place]ijian <0.10 M246-VeZ Pigweed, [place] <0.10 A061-EaN Sheep [place] <0.10 N807-PkF Milk <0.10 B235-LbW Wheat <0.10 U/hKT362-ElY [place] <0.10 U/bMJ067-XnQ Peanut <0.10 U/zAN000-KaR Soybean <0.10 U/bDE968-MvB Pork <0.10 U/eKR800-LrG Beef <0.10 U/bUEQ74-UuU Food Mix(Seafoods) Negative F818-LpV Egg, Whole <0.10 U/bSE352-UzX Chocolate/[place] <0.10 07/21/2016 3:26 PM GLUCOSE 104.0 mg/dLSODIUM [...] Number Start Date Medicare RHC Medicare RHC [id number] N/A [facility] [id number] N/A Medicare Part A Medicare - Lab/Xray [id number] N/A BCBS Bcbs [facility] [id number] July 05, 2013 Medicare Part A Medicare Part A [id number] Friday, July 05, 2013 [facility] J Kumar In[employer] [place]alander Retriement [id number] N/A Medicare Part B Medicare Of [place] [id number] Friday, July 05, 2013 [place] [facility] [place]al[place] Life Ins [id number] N/A Medicare Part A ZZZMedicare P A - Preventive [id number] N/A History of Encounters Visit Date Visit Type Provider 03/19/2018 Procedures Hermilo Gallego DO 03/12/2018 Procedures Hermilo Gallego DO 02/26/2018 Procedures Hermilo Gallego DO 01/03/2018 Office visit Katharina Murdock APR N 10/08/2017 Office visit Jada Pulliam INTERPRETER FOR THE DEAF 10/06/2017 Office visit Jada Pulliam INTERPRETER FOR THE DEAF 10/07/2016 [facility] Jessica Dhaliwal MD 08/12/2016 Office visit Jada Pulliam INTERPRETER FOR THE DEAF 08/05/2016 Office visit Jada Pulliam INTERPRETER FOR THE DEAF 07/21/2016 Office visit Jada Pulliam INTERPRETER FOR THE DEAF 07/10/2016 [facility] Sage Green MD 07/09/2016 Office visit Valorie MCCLURE 07/09/2016 [facility] Jessica Dhaliwal MD 05/22/2016 Nurse visit Jada Pulliam INTERPRETER FOR THE DEAF 04/13/2016 Office visit Katharina Murdock APR N 04/04/2016 Nurse visit Jada Pulliam INTERPRETER FOR THE DEAF 03/26/2016 Office visit Jada Pulliam INTERPRETER FOR THE DEAF 02/29/2016 Office visit Jada Pulliam INTERPRETER FOR THE DEAF 01/09/2016 Office visit Jada Pulliam INTERPRETER FOR THE DEAF 11/14/2015 Office visit Jada Pulliam INTERPRETER FOR THE DEAF 07/16/2015 Nurse visit Jada Pulliam INTERPRETER FOR THE DEAF 11/30/2014 Office visit Sharon Villanueva 10/18/2014 Office visit Jada Pulliam INTERPRETER FOR THE DEAF 08/17/2014 Office visit Jaylene Rebolledo MD 06/28/2014 Office visit Jada Pulliam INTERPRETER FOR THE DEAF 06/01/2014 Office visit Sharon Villanueva 04/28/2014 Nurse visit Jada Walker INTERPRETER FOR THE DEAF 07/20/2013 Office visit Jada Walker INTERPRETER FOR THE DEAF 07/05/2013 Nurse visit Jada Walker INTERPRETER FOR THE DEAF 01/10/2013 Office visit Jada Walker INTERPRETER FOR THE DEAF 12/29/2012 Nurse visit Jada Pulliam INTERPRETER FOR THE DEAF 06/16/2012 Office visit Jada Pulliam INTERPRETER FOR THE DEAF 05/04/2012 Office visit Jada Pulliam INTERPRETER FOR THE DEAF 03/10/2012 Office visit Jada Pulliam INTERPRETER FOR THE DEAF 03/04/2012 Office visit Jada Pulliam INTERPRETER FOR THE DEAF 01/13/2012 Office visit Ezequiel Mahan MD 01/08/2012 Nurse visit Mikki Carrasco MD 12/16/2011 Voided Ezequiel Mahan MD 11/28/2011 Office visit Ezequiel Mahan MD 10/28/2011 Office visit Jada Pulliam INTERPRETER FOR THE DEAF 08/14/2011 Office visit Ezequiel Mahan MD 08/07/2011 Nurse visit Ezequiel Mahan MD 06/03/2011 Office visit Jada Pulliam INTERPRETER FOR THE DEAF 05/07/2011 Office visit Ezequiel Mahan MD 04/28/2011 [...] Braydon Ramirez DO 07/02/2009 Office visit Braydon Ramirze DO
--- OUTSIDE RECORDS SUMMARY | 2019-12-14 18:20 | XMS REPORT ---
Author Shandra Porter Organization [facility] Address [address] [place], [place] [address] Care Team Providers Care Baseball Sewer Hand Name Role Phone Jada Pulliam PCP Unavailable [...] Returned 02/29/2016 12:00 AM Rocephin 1 gram [facility]#4928-4218-57 Reviewe d 03/27/2016 12:00 AM URNLS DIP STICK/TABLET RGNT AUTO W/O KATHRIN ROSCOPY Returned 03/26/2016 12:00 AM Benadryl, Up to 50 Mg [facility]# 9843-7540-56 Reviewed 04/04/2016 12:00 AM IMMUNOTHERAPY ONE INJECTION Reviewed 04/13/2016 12:00 AM Depo-Medrol, Per 80 Mg [facility]#[address]-29 Reviewed 04/13/2016 12:00 AM Decadron, Per 1 Mg [facility]# [address]-70 Re viewed 04/13/2016 12:00 AM THER/PROPH/DIAG INJ SC/IM Reviewed 10/29/2011 12:00 AM URINALYSIS AUTO W/O SCOPE Reviewed 10/28/2011 12:00 AM COMPLETE CBC W/AUTO DIFF WBC Returned 10/28/2011 12:00 AM COMPREHEN METABOLIC PANEL Returned 10/28/2011 12:00 AM URINE CULTURE/COLONY COUNT Returned 05/22/2016 12:00 AM ALLERGEN SPECIFIC IGE Returned 05/22/2016 12:00 AM Decadron, Per 1 Mg [facility]# [address]-58 Re viewed 05/22/2016 12:00 AM Depo-Medrol 40mg Reviewed 05/22/2016 12:00 AM THER/PROPH/DIAG INJ SC/IM Reviewed 01/08/2012 12:00 AM THER/PROPH/DIAG INJ SC/IM Reviewed 01/08/2012 12:00 AM Depo-Medrol 40 mg [facility]#[id number] Reviewe d 03/12/2012 12:00 AM URINALYSIS AUTO [...] 01/10/2013 12:00 AM Decadron, Per 1 Mg [facility]# [address]-07 Re viewed 01/10/2013 12:00 AM Depo-Medrol, Per 80 Mg [facility]#1553-8461-90 Reviewed 07/05/2013 12:00 AM Prolia, 60 Mg Reviewed 07/20/2013 12:00 AM THER/PROPH/DIAG INJ SC/IM Reviewed 07/20/2013 12:00 AM Depo-Medrol, Per 80 Mg [facility]#7948-6759-26 Reviewed 07/20/2013 12:00 AM Decadron, Per 1 Mg [facility]# [address]-70 Re viewed 05/13/2010 12:00 AM COMPREHEN METABOLIC [...] Reviewed 10/24/2009 12:00 AM Kenalog 40 Mg [facility]#5913-2280-56 Review ed 12/26/2014 12:00 AM Prolia, 60 [...] /HPFTRICHOMONAS NEGATIVE YEAST NEGATIVE 05/22/2016 3:30 PM Y561-FiO D pteronyssinus <0. 10 U/tVL469-NqR D farinae <0.10 U/eMM379-SnH Cat Dander <0.10 M432-NcR Dog Dander <0.10 U/uZE948-HnC [place] Grass <0.10 U/cSH728-TmN Bluegrass,[place] <0.10 U/uTA812-QeN [place] Grass <0.10 U/dWO723-OvJ Maple/[place] <0.10 U/tBD532-HlY [place], White <0.10 U/mFG290- IgE Elm, Czech <0.10 U/kKJ746-OpM [place] <0.10 U/vHS729-GvZ Merlin, White <0.10 U/eZP717-FmY Maple LeafSycamore <0.10 U/mZR905-YeS White [place] <0.10 U/dGW901-SvU Milk <0.10 J336-DhG Wheat <0.10 U/hQM037-YfJ [place] <0.10 U/sYI664- IgE Peanut <0.10 U/cME054-LeP Soybean <0.10 U/yAP926-FtM Pork <0.10 U/sYJ552-EsU Beef <0.10 U/gQOR34-OfA Food Mix(Seafoods) Negative D593-JvI Egg, Whole <0.10 U/eZK664-OtW Chocolate/[place] <0.10 History Of Immunizations Name Date Admin [...] 2016 3:04PM Hives May 22 2016 4:40PM Payers Insurance Name Company Name Plan Name Plan Number Policy Number Sanjay cy Group Number Start Date Medicare Part A Medicare [facility] [id number] N/A [facility] hia Czech Life Ins [id number] N/A Medicare Part A ZZZMedicare P A - Preventive [id number] N/A Medicare Part A Medicare - Lab/Xray [id number] N/A BCBS [facility] [id number] July 05, 2013 Medicare Part A Medicare Part A [id number] Friday, July 05, 2013 [facility] [employer] [place] Retriement [id number] N/A Medicare Part B Medicare Of [place] [id number] Friday, July 05, 2013 History of Encounters Visit Date Visit Type Provider 05/22/2016 Nurse visit Jada Pulliam MANAGER STRATEGIC ALLIANCES 04/13/2016 Office visit Katharina Murdock APR N 04/04/2016 Nurse visit Jada Pulliam MANAGER STRATEGIC ALLIANCES 03/26/2016 Office visit Jada Pulliam MANAGER STRATEGIC ALLIANCES 02/29/2016 Office visit Jada Pulliam MANAGER STRATEGIC ALLIANCES 01/09/2016 Office visit Jada Pulliam MANAGER STRATEGIC ALLIANCES 11/14/2015 Office visit Jada Pulliam MANAGER STRATEGIC ALLIANCES 07/16/2015 Nurse visit Jada Pulliam MANAGER STRATEGIC ALLIANCES 11/30/2014 Office visit Sharon Villanueva 10/18/2014 Office visit Jada Pulliam MANAGER STRATEGIC ALLIANCES 08/17/2014 Office visit Jaylene Rebolledo MD 06/28/2014 Office visit Jada Pulliam MANAGER STRATEGIC ALLIANCES 06/01/2014 Office visit Sharon Villanueva 04/28/2014 Nurse visit Jada Pulliam MANAGER STRATEGIC ALLIANCES 07/20/2013 Office visit Jada Pulliam MANAGER STRATEGIC ALLIANCES 07/05/2013 Nurse visit Jada Pulliam MANAGER STRATEGIC ALLIANCES 01/10/2013 Office visit Jada Pulliam MANAGER STRATEGIC ALLIANCES 12/29/2012 Nurse visit Jada Pulliam MANAGER STRATEGIC ALLIANCES 06/16/2012 Office visit Jada Pulliam MANAGER STRATEGIC ALLIANCES 05/04/2012 Office visit Jada Pulliam MANAGER STRATEGIC ALLIANCES 03/10/2012 Office visit Jada Pulliam MANAGER STRATEGIC ALLIANCES 03/04/2012 Office visit Jada Pulliam MANAGER STRATEGIC ALLIANCES 01/13/2012 Office visit Ezequiel Mahan MD 01/08/2012 Nurse visit Mikki Carrasco MD 12/16/2011 Voided Ezequiel Mahan MD 11/28/2011 Office visit Ezequiel Mahan MD 10/28/2011 Office visit Jada Pulliam MANAGER STRATEGIC ALLIANCES 08/14/2011 Office visit Ezequiel Mahan MD 08/07/2011 Nurse visit Ezequiel Mahan MD 06/03/2011 Office visit Jada Heraclio MANAGER STRATEGIC ALLIANCES 05/07/2011 Office visit Ezequiel Mahan MD 04/28/2011 [...]
--- OUTSIDE RECORDS SUMMARY | 2019-12-14 18:20 | XMS REPORT ---
Author Shandra Porter Organization [facility] Address [address] [place], [place] [address] Care Team Providers Care Credit Control Clerk Name Role Phone Jada Pulliam PCP Jada Pulliam PreferredProvider Allergies and Adverse Reactions Name Reaction Notes ciprofloxacin migraine codeine sulfate Plan of Treatment Planned Activity Comments Planned Date Planned Time Plan/Goal Urine Culture, [place] Count 03/04/2016 12:00 AM CMP (comprehensive metabolic panel) 10/06/2017 [...] 02/29/2016 12:00 AM Rocephin 1 gram [facility]#5764-0304-35 Reviewe d 03/27/2016 12:00 AM INJECT SPINE LUMBAR/SACRAL Reviewed 03/27/2016 12:00 AM URNLS DIP STICK/TABLET RGNT AUTO W/O KATHRIN ROSCOPY Reviewed 03/26/2016 12:00 AM Benadryl, Up to 50 Mg [facility]# 5324-8803-48 Reviewed 04/04/2016 12:00 AM IMMUNOTHERAPY ONE INJECTION Reviewed 10/29/2011 12:00 AM URINALYSIS AUTO W/O SCOPE Reviewed 10/28/2011 12:00 AM COMPLETE CBC W/AUTO DIFF WBC Reviewed 10/28/2011 12:00 AM COMPREHEN METABOLIC PANEL Reviewed 10/28/2011 12:00 AM URINE CULTURE/COLONY COUNT Reviewed 05/22/2016 12:00 AM ALLERGEN SPECIFIC IGE Reviewed 05/22/2016 12:00 AM Decadron, Per 1 Mg [facility]# [address]-27 Re viewed 05/22/2016 12:00 AM Depo-Medrol 40mg [...] 12:00 AM Depo-Medrol 40 mg [facility]#[id number] Reviewe d 09/08/2016 12:00 AM METABOLIC PANEL TOTAL CA Reviewed 09/08/2016 12:00 AM COMPLETE CBC W/AUTO DIFF WBC Reviewed 09/08/2016 12:00 AM RADIOLOGIC EXAM CHEST 2 VIEWS FRONTAL&LA TERAL Reviewed 04/13/2016 12:00 AM Depo-Medrol, Per 80 Mg [facility]#[address]-99 Reviewed 04/13/2016 12:00 AM Decadron, Per 1 Mg [facility]# [address]-40 Re viewed 04/13/2016 12:00 AM THER/PROPH/DIAG INJ [...] AM COMPLETE CBC W/AUTO DIFF WBC Returned 12/01/2012 12:00 AM COMPREHEN METABOLIC PANEL Reviewed 12/29/2012 12:00 AM Prolia, 60 Mg Reviewed 12/29/2012 12:00 AM THER/PROPH/DIAG INJ SC/IM Reviewed 01/10/2013 12:00 AM THER/PROPH/DIAG INJ SC/IM Reviewed 01/10/2013 12:00 AM Decadron, Per 1 Mg [facility]# [address]-06 Re viewed 01/10/2013 12:00 AM Depo-Medrol, Per 80 Mg [facility]#5148-7348-26 Reviewed 07/05/2013 12:00 AM Prolia, 60 Mg Reviewed 07/20/2013 12:00 AM THER/PROPH/DIAG INJ SC/IM Reviewed 07/20/2013 12:00 AM Depo-Medrol, Per 80 Mg [facility]#4491-8326-93 Reviewed 07/20/2013 12:00 AM Decadron, Per 1 Mg [facility]# [address]-92 Re viewed 05/13/2010 12:00 AM COMPREHEN METABOLIC [...] AM Kenalog 40 Mg [facility]#9716-7410-82 Review ed 12/26/2014 12:00 AM Prolia, 60 [...] CULT SET UP? YES 05/22/2016 3:30 PM L280-OvI D pteronyssinus <0. 10 U/bLV466-WoD D farinae <0.10 U/qSA074-WpB Cat Dander <0.10 A518-IaR Dog Dander <0.10 U/jEJ943-ExV [place] Grass <0.10 U/iOE377-GiX [facility],[place] <0.10 U/dLS438-BtG [place] Grass <0.10 U/lCU224-TkW Cockroach,[place] <0.10 D980-AqX Penicilliumchrysogen <0.10 S804-VbC Cladosporiumherbarum <0.10 K152-UzY Aspergillusfumigatus <0.10 H782-YwF Mucor racemosus <0.10 B865-NjK Alternariaalternata <0.10 G411-HbT Stemphyliumherbarum <0.10 L794-FgP Maple/[place] <0.10 U/yNJ675-NsW [place], White <0.10 U/pHM566-ZeV Elm, Argentine <0.10 U/jSD450-MjQ [place] <0.10 U/oIN339-HnQ Merlin, White <0.10 U/aIK572-YlK Maple LeafSycamore <0.10 U/kLI063-MlK [place] <0.10 U/sZC036-YvA Ragweed, Short <0.10 M531-VqV [place] <0.10 W009- IgE Plantain,[place] <0.10 D159-XjR Thistle, Surinamese <0.10 K886-PpZ Pigweed, Common <0.10 V289-BpC Sheep [place] <0.10 N164-DuS Milk <0.10 N310-UeH Wheat <0.10 U/bUK731-NxM [place] <0.10 U/uLA862-LkN Peanut <0.10 U/yCB717-ObE Soybean <0.10 U/kTE350-EbZ Pork <0.10 U/aBR168-QoT Beef <0.10 U/eVYW72-UjO Food Mix(Seafoods) Negative B802-NfV Egg, Whole <0.10 U/vSJ798-WmL Chocolate/[place] <0.10 07/21/2016 3:26 PM GLUCOSE 104.0 mg/dLSODIUM [...] Not Entered 10/05/2019 10/05/2019 999 Tdap 07/16/2015 [employer] SKB BOOSTRIX H9P57 Intramuscula r Right Deltoid [...] upper respiratory infection Oct 08 2017 10:04AM Payers Insurance Name Company Name Plan Name Plan Number Policy Number Sanjay cy Group Number Start Date Medicare RHC Medicare RHC [id number] N/A Uprehs Uprehs [id number] N/A Medicare Part A Medicare - Lab/Xray [id number] N/A BCBS Bcbs [facility] [id number] July 05, 2013 Medicare Part A Medicare Part A [id number] Friday, July 05, 2013 [employer] [place] Retriement [id number] N/A Medicare Part B Medicare Of [place] [id number] Friday, July 05, 2013 Arverne Merkle [facility] [employer] Ins [id number] N/A Medicare Part A ZZZMedicare P A - Preventive [id number] N/A History of Encounters Visit Date Visit Type Provider 10/08/2017 Office visit Jada Pulliam FASHION BUYER 10/06/2017 Office visit Jada Pulliam FASHION BUYER 10/07/2016 [facility] Jessica Dhaliwal MD 08/12/2016 Office visit Jada Pulliam FASHION BUYER 08/05/2016 Office visit Jada Pulliam FASHION BUYER 07/21/2016 Office visit Jada Pulliam FASHION BUYER 07/10/2016 [facility] Sage Green MD 07/09/2016 Office visit Valorie MCCLURE 07/09/2016 [facility] Jessica Dhaliwal MD 05/22/2016 Nurse visit Jada Pulliam FASHION BUYER 04/13/2016 Office visit Katharina Murdock APR N 04/04/2016 Nurse visit Jada Pulliam FASHION BUYER 03/26/2016 Office visit Jada Pulliam FASHION BUYER 02/29/2016 Office visit Jada Pulliam FASHION BUYER 01/09/2016 Office visit Jada Pulliam FASHION BUYER 11/14/2015 Office visit Jada Pullaim FASHION BUYER 07/16/2015 Nurse visit Jada Pulliam FASHION BUYER 11/30/2014 Office visit Sharon Villanueva 10/18/2014 Office visit Jada Pulliam FASHION BUYER 08/17/2014 Office visit Jaylene Rebolledo MD 06/28/2014 Office visit Jada Pulliam FASHION BUYER 06/01/2014 Office visit Sharon Villanueva 04/28/2014 Nurse visit Jada Pulliam FASHION BUYER 07/20/2013 Office visit Jada Pulliam FASHION BUYER 07/05/2013 Nurse visit Jada Pulliam FASHION BUYER 01/10/2013 Office visit Jada Pulliam FASHION BUYER 12/29/2012 Nurse visit Jada Pulliam FASHION BUYER 06/16/2012 Office visit Jada Pulliam FASHION BUYER 05/04/2012 Office visit Jada Pulliam FASHION BUYER 03/10/2012 Office visit Jada Pulliam FASHION BUYER 03/04/2012 Office visit Jada Pulliam FASHION BUYER 01/13/2012 Office visit Ezequiel Mahan MD 01/08/2012 Nurse visit Mikki Carrasco MD 12/16/2011 Voided Ezequiel Mahan MD 11/28/2011 Office visit Ezequiel Mahan MD 10/28/2011 Office visit Jada Pulliam FASHION BUYER 08/14/2011 Office visit Ezequiel Mahan MD 08/07/2011 Nurse visit Ezequiel Mahan MD 06/03/2011 Office visit Jada Pulliam FASHION BUYER 05/07/2011 Office visit Ezequiel Mahan MD 04/28/2011 [...]
--- OUTSIDE RECORDS SUMMARY | 2019-12-14 18:21 | XMS REPORT ---
Author Shandra Porter Organization [facility] Address [address] [place], [place] [address] Care Team Providers Care Pipe Organ Tuner And Repairer Name Role Phone Jada Pulliam PCP Unavailable Jada Pulliam PreferredProvider Unavailable Allergies and Adverse Reactions Name Reaction Notes ciprofloxacin migraine codeine sulfate Plan of Treatment Planned Activity Comments Planned Date Planned Time Plan/Goal Urine Culture, [place] Count 03/04/2016 12:00 AM lumbar pain 12/17/2015 [...] Returned 02/29/2016 12:00 AM Rocephin 1 gram [facility]#8846-6778-30 Reviewe d 03/27/2016 12:00 AM URNLS DIP STICK/TABLET RGNT AUTO W/O KATHRIN ROSCOPY Returned 03/26/2016 12:00 AM Benadryl, Up to 50 Mg [facility]# 9102-6317-89 Reviewed 04/04/2016 12:00 AM IMMUNOTHERAPY ONE INJECTION Reviewed 04/13/2016 12:00 AM Depo-Medrol, Per 80 Mg [facility]#[address]-30 Reviewed 04/13/2016 12:00 AM Decadron, Per 1 Mg [facility]# [address]-60 Re viewed 04/13/2016 12:00 AM THER/PROPH/DIAG INJ SC/IM Reviewed 10/29/2011 12:00 AM URINALYSIS AUTO W/O SCOPE Reviewed 10/28/2011 12:00 AM COMPLETE CBC W/AUTO DIFF WBC Returned 10/28/2011 12:00 AM COMPREHEN METABOLIC PANEL Returned 10/28/2011 12:00 AM URINE CULTURE/COLONY COUNT Returned 05/22/2016 12:00 AM ALLERGEN SPECIFIC IGE Returned 05/22/2016 12:00 AM Decadron, Per 1 Mg [facility]# [address]-00 Re viewed 05/22/2016 12:00 AM Depo-Medrol 40mg [...] Reviewed 01/08/2012 12:00 AM Depo-Medrol 40 mg [facility]#[id number] Reviewe d 03/12/2012 12:00 AM URINALYSIS AUTO [...] 01/10/2013 12:00 AM Decadron, Per 1 Mg [facility]# [address]-73 Re viewed 01/10/2013 12:00 AM Depo-Medrol, Per 80 Mg [facility]#4151-2175-36 Reviewed 07/05/2013 12:00 AM Prolia, 60 Mg Reviewed 07/20/2013 12:00 AM THER/PROPH/DIAG INJ SC/IM Reviewed 07/20/2013 12:00 AM Depo-Medrol, Per 80 Mg [facility]#9688-1465-07 Reviewed 07/20/2013 12:00 AM Decadron, Per 1 Mg [facility]# [address]-25 Re viewed 05/13/2010 12:00 AM COMPREHEN METABOLIC [...] Reviewed 10/24/2009 12:00 AM Kenalog 40 Mg [facility]#5068-3609-56 Review ed 12/26/2014 12:00 AM Prolia, 60 [...] CULT SET UP? YES 05/22/2016 3:30 PM Z183-JaJ D pteronyssinus <0. 10 U/jNW346-BqX D farinae <0.10 U/kXM419-UmW Cat Dander <0.10 J299-OlV Dog Dander <0.10 U/tBH515-VkX [place] Grass <0.10 U/eVN176-VbK Bluegrass,[place] <0.10 U/iNO799-ZvZ [place] Grass <0.10 U/hNA915-MmP Cockroach,Portuguese <0.10 H603-UtI Penicilliumchrysogen <0.10 D474-ZoK Cladosporiumherbarum <0.10 Z053-ZhC Aspergillusfumigatus <0.10 Z090-OnG Mucor racemosus <0.10 Y962-NsC Alternariaalternata <0.10 A625-AcK Stemphyliumherbarum <0.10 Q993-MvX Maple/[place] <0.10 U/uDU712-KdA [place], White <0.10 U/zWL213-SuU Elm, Portuguese <0.10 U/sHQ736-YvB [place] <0.10 U/yUA893-LnN Merlin, White <0.10 U/eJU780-XjD Maple LeafSycamore <0.10 U/nFS063-CuC White [place] <0.10 U/vGG839-YcR Ragweed, Short <0.10 Z260-FpG [place] <0.10 W009- IgE Plantain,[place] <0.10 J540-JbU Thistle, Nepalese <0.10 K577-ZnJ Pigweed, Common <0.10 Z403-ZwG Sheep [place] <0.10 M433-UlQ Milk <0.10 M928-SwD Wheat <0.10 U/hSP432-ViM [place] <0.10 U/oRQ309-ZcP Peanut <0.10 U/uHG090-NqY Soybean <0.10 U/kZS773-DoU Pork <0.10 U/zEU950-JdG Beef <0.10 U/iXMH28-UqE Food Mix(Seafoods) Negative J440-CbN Egg, Whole <0.10 U/fAQ466-OrJ Chocolate/[place] <0.10 07/21/2016 3:26 PM GLUCOSE 104.0 mg/dLSODIUM [...] Not Entered 10/05/2019 10/05/2019 999 Tdap 07/16/2015 [employer] SKB BOOSTRIX H9P57 Intramuscula r Right Deltoid [...] Start Date Medicare Part A Medicare C [id number] N/A [place] [employer] Insurance WHILL [facility] hi Portuguese Life Ins [id number] N/A Medicare Part A ZZZMedicare P A - Preventive [id number] N/A Medicare Part A Medicare - Lab/Xray [id number] N/A BCBS Bcbs [facility] [id number] July 05, 2013 Medicare Part A Medicare Part A [id number] Friday, July 05, 2013 [facility] [employer] Portuguese Retriement [id number] N/A Medicare Part B Medicare Of [place] [id number] Friday, July 05, 2013 History of Encounters Visit Date Visit Type Provider 08/12/2016 Office visit Jada Pulliam HAT BODY SORTER 08/05/2016 Office visit Jada Pulliam HAT BODY SORTER 07/21/2016 Office visit Jada Pulliam HAT BODY SORTER 07/10/2016 [facility] Sage Green MD 07/09/2016 Office visit Valorie MCCLURE 05/22/2016 Nurse visit Jada Pulliam HAT BODY SORTER 04/13/2016 Office visit Katharina Murdock APR N 04/04/2016 Nurse visit Jada Pulliam HAT BODY SORTER 03/26/2016 Office visit Jada Pulliam HAT BODY SORTER 02/29/2016 Office visit Jada Pulliam HAT BODY SORTER 01/09/2016 Office visit Jada Pulliam HAT BODY SORTER 11/14/2015 Office visit Jada Pulliam HAT BODY SORTER 07/16/2015 Nurse visit Jada Pulliam HAT BODY SORTER 11/30/2014 Office visit Sharon Villanueva 10/18/2014 Office visit Jada Pulliam HAT BODY SORTER 08/17/2014 Office visit Jaylene Rebolledo MD 06/28/2014 Office visit Jada Pulliam HAT BODY SORTER 06/01/2014 Office visit Sharon Villanueva 04/28/2014 Nurse visit Jada Pulliam APRN 07/20/2013 Office visit Jada Pulliam HAT BODY SORTER 07/05/2013 Nurse visit Jada Pulliam HAT BODY SORTER 01/10/2013 Office visit Jada Pulliam HAT BODY SORTER 12/29/2012 Nurse visit Jada Pulliam HAT BODY SORTER 06/16/2012 Office visit Jada Pulliam HAT BODY SORTER 05/04/2012 Office visit Jada Pulliam HAT BODY SORTER 03/10/2012 Office visit Jada Pulliam HAT BODY SORTER 03/04/2012 Office visit Jada Pulliam HAT BODY SORTER 01/13/2012 Office visit Ezequiel Mahan MD 01/08/2012 Nurse visit Mikki Carrasco MD 12/16/2011 Voided Ezequiel Mahan MD 11/28/2011 Office visit Ezequiel Mahan MD 10/28/2011 Office visit Jada Heraclio HAT BODY SORTER 08/14/2011 Office visit Ezequiel Mahan MD 08/07/2011 Nurse visit Ezequiel Mahan MD 06/03/2011 Office visit Jada Heraclio HAT BODY SORTER 05/07/2011 Office visit Ezequiel Mahan MD 04/28/2011 [...]
--- OUTSIDE RECORDS SUMMARY | 2019-12-14 18:22 | XMS REPORT ---
Author Shandra Porter Organization [facility] Address [address] [place], [place] [address] Care Team Providers Care Car Framer Name Role Phone Jada Pulliam PCP Unavailable Jada Pulliam PreferredProvider Unavailable Allergies and Adverse Reactions Name Reaction Notes ciprofloxacin migraine codeine sulfate Plan of Treatment Planned Activity Comments Planned Date Planned Time Plan/Goal Urine Culture, [place] Count 03/04/2016 12:00 AM lumbar pain 12/17/2015 [...] SPINE W/O DYE Reviewed 11/15/2015 12:00 AM GLYCOSYLATED HEMOGLOBIN TEST Reviewed 08/07/2011 12:00 AM THER/PROPH/DIAG INJ SC/IM Reviewed 08/07/2011 12:00 AM Solu-Medrol 125 Mg Reviewed 02/29/2016 12:00 AM URNLS DIP STICK/TABLET RGNT AUTO W/O KATHRIN ROSCOPY Returned 02/29/2016 12:00 AM Rocephin 1 gram [facility]#3269-1310-53 Reviewe d 03/27/2016 12:00 AM URNLS DIP STICK/TABLET RGNT AUTO W/O KATHRIN ROSCOPY Returned 03/26/2016 12:00 AM Benadryl, Up to 50 Mg [facility]# 3191-5729-95 Reviewed 04/04/2016 12:00 AM IMMUNOTHERAPY ONE INJECTION Reviewed 10/29/2011 12:00 AM URINALYSIS AUTO W/O SCOPE Reviewed 10/28/2011 12:00 AM COMPLETE CBC W/AUTO DIFF WBC Reviewed 10/28/2011 12:00 AM COMPREHEN METABOLIC PANEL Reviewed 10/28/2011 12:00 AM URINE CULTURE/COLONY COUNT Reviewed 05/22/2016 12:00 AM ALLERGEN SPECIFIC IGE Returned 05/22/2016 12:00 AM Decadron, Per 1 Mg [facility]# [address]-72 Re viewed 05/22/2016 12:00 AM Depo-Medrol 40mg [...] AM Depo-Medrol 40 mg [facility]#[id number] Reviewe d 09/08/2016 12:00 AM METABOLIC PANEL TOTAL CA Returned 09/08/2016 12:00 AM COMPLETE CBC W/AUTO DIFF WBC Returned 09/08/2016 12:00 AM RADIOLOGIC EXAM CHEST 2 VIEWS FRONTAL&LA TERAL Returned 04/13/2016 12:00 AM Depo-Medrol, Per 80 Mg [facility]#[address]-75 Reviewed 04/13/2016 12:00 AM Decadron, Per 1 Mg [facility]# [address]-34 Re viewed 04/13/2016 12:00 AM THER/PROPH/DIAG INJ [...] Per 1 Mg [facility]# [address]-99 Re viewed 01/10/2013 12:00 AM Depo-Medrol, Per 80 Mg [facility]#2493-2501-74 Reviewed 07/05/2013 12:00 AM Prolia, 60 Mg Reviewed 07/20/2013 12:00 AM THER/PROPH/DIAG INJ SC/IM Reviewed 07/20/2013 12:00 AM Depo-Medrol, Per 80 Mg [facility]#5045-1143-12 Reviewed 07/20/2013 12:00 AM Decadron, Per 1 Mg [facility]# [address]-52 Re viewed 05/13/2010 12:00 AM COMPREHEN METABOLIC [...] Kenalog 40 Mg [facility]#8753-0881-52 Review ed 12/26/2014 12:00 AM Prolia, 60 [...] CULT SET UP? YES 05/22/2016 3:30 PM K263-VoJ D pteronyssinus <0. 10 U/dSF817-KiX D farinae <0.10 U/iKL291-HoZ Cat Dander <0.10 Y064-ZzW Dog Dander <0.10 U/jDE969-QeA [place] Grass <0.10 U/lHY242-MiC Bluegrass,[place] <0.10 U/xFA829-RhJ [place] Grass <0.10 U/nKQ596-JfE Cockroach,Russian <0.10 T741-BoQ Penicilliumchrysogen <0.10 B013-GzZ Cladosporiumherbarum <0.10 Y897-DzS Aspergillusfumigatus <0.10 T378-CtA Mucor racemosus <0.10 L346-ToO Alternariaalternata <0.10 W968-HrD Stemphyliumherbarum <0.10 K194-IyI Maple/[place] <0.10 U/kAC784-UeQ [place], White <0.10 U/uKY916-WtW Elm, Russian <0.10 U/lDJ550-UlD [place] <0.10 U/kRC918-QiW Merlin, White <0.10 U/qXV555-UfO Maple LeafSycamore <0.10 U/uGD860-YoT [place] Start <0.10 U/rDM590-AbP Ragweed, Short <0.10 V335-HnX [place] <0.10 W009- IgE Plantain,[place] <0.10 C212-QxN Thistle, [place] Konger <0.10 M570-MaT Pigweed, Common <0.10 K929-DxX Sheep [place] <0.10 K686-ZgD Milk <0.10 V410-ZeK Wheat <0.10 U/cUF398-XsZ [place] <0.10 U/rGN371-CjS Peanut <0.10 U/vAI349-IqM Soybean <0.10 U/zPO328-RvH Pork <0.10 U/iUW404-BuR Beef <0.10 U/iAPY68-XsV Food Mix(Seafoods) Negative W084-QgB Egg, Whole <0.10 U/gLE510-CcJ Chocolate/[place] <0.10 07/21/2016 3:26 PM GLUCOSE 104.0 mg/dLSODIUM [...] Not Entered 10/05/2019 10/05/2019 999 Tdap 07/16/2015 [facility] SK[facility] BOOSTRIX H9P57 Intramuscula r Right Deltoid [...] Number Start Date Medicare RHC Medicare RHC [id number] N/A Rodessa Shuame Insurance [employer] [facility] hia Russian Life Ins [id number] N/A Medicare Part A ZZZMedicare P A - Preventive [id number] N/A Medicare Part A Medicare - Lab/Xray [id number] N/A [facility] [id number] July 05, 2013 Medicare Part A Medicare Part A [id number] Friday, July 05, 2013 [facility] Z2 Md Russian Retriement [id number] N/A Medicare Part B Medicare Of [place] [id number] Friday, July 05, 2013 History of Encounters Visit Date Visit Type Provider 08/12/2016 Office visit Jada Pulliam GUM ROLLING MACHINE TENDER 08/05/2016 Office visit Jada Pulliam GUM ROLLING MACHINE TENDER 07/21/2016 Office visit Jada Pulliam GUM ROLLING MACHINE TENDER 07/10/2016 [facility] Sage Green MD 07/09/2016 Office visit Valorie MCCLURE 07/09/2016 [facility] Jessica Dhaliwal MD 05/22/2016 Nurse visit Jada Pulliam GUM ROLLING MACHINE TENDER 04/13/2016 Office visit Katharina Murdock APR N 04/04/2016 Nurse visit Jada Pulliam GUM ROLLING MACHINE TENDER 03/26/2016 Office visit Jada Pulliam GUM ROLLING MACHINE TENDER 02/29/2016 Office visit Jada Pulliam GUM ROLLING MACHINE TENDER 01/09/2016 Office visit Jada Pulliam GUM ROLLING MACHINE TENDER 11/14/2015 Office visit Jada Pulliam GUM ROLLING MACHINE TENDER 07/16/2015 Nurse visit Jada Pulliam GUM ROLLING MACHINE TENDER 11/30/2014 Office visit Sharon Villanueva 10/18/2014 Office visit Jada Pulliam GUM ROLLING MACHINE TENDER 08/17/2014 Office visit Jaylene Rebolledo MD 06/28/2014 Office visit Jada Pulliam GUM ROLLING MACHINE TENDER 06/01/2014 Office visit Sharon Villanueva 04/28/2014 Nurse visit Jada Pulliam GUM ROLLING MACHINE TENDER 07/20/2013 Office visit Jada Pulliam GUM ROLLING MACHINE TENDER 07/05/2013 Nurse visit Jada Pulliam GUM ROLLING MACHINE TENDER 01/10/2013 Office visit Jada Pulliam GUM ROLLING MACHINE TENDER 12/29/2012 Nurse visit Jada Walker GUM ROLLING MACHINE TENDER 06/16/2012 Office visit Jada Pulliam GUM ROLLING MACHINE TENDER 05/04/2012 Office visit Jada Pulliam GUM ROLLING MACHINE TENDER 03/10/2012 Office visit Jada Pulliam GUM ROLLING MACHINE TENDER 03/04/2012 Office visit Jada Pulliam GUM ROLLING MACHINE TENDER 01/13/2012 Office visit Ezequiel Mahan MD 01/08/2012 Nurse visit Mikki Carrasco MD 12/16/2011 Voided Ezequiel Mahan MD 11/28/2011 Office visit Ezequiel Mahan MD 10/28/2011 Office visit Jada Pulliam GUM ROLLING MACHINE TENDER 08/14/2011 Office visit Ezequiel Mahan MD 08/07/2011 Nurse visit Ezequiel Mahan MD 06/03/2011 Office visit Jada Pulliam GUM ROLLING MACHINE TENDER 05/07/2011 Office visit Ezequiel Mahan MD 04/28/2011 [...]
--- OUTSIDE RECORDS SUMMARY | 2019-12-14 18:23 | XMS REPORT ---
Author Shandra Porter Organization [facility] Address [address] [place], [place] [id number] Care Team Providers Care Fiberglass Insulation Installer Name Role Phone Jada Pulliam PCP Unavailable [...] Returned 02/29/2016 12:00 AM Rocephin 1 gram [facility]#7789-7680-53 Reviewe d 03/27/2016 12:00 AM URNLS DIP STICK/TABLET RGNT AUTO W/O KATHRIN ROSCOPY Returned 03/26/2016 12:00 AM Benadryl, Up to 50 Mg [facility]# 0851-8417-41 Reviewed 04/04/2016 12:00 AM IMMUNOTHERAPY ONE INJECTION Reviewed 04/13/2016 12:00 AM Depo-Medrol, Per 80 Mg [facility]#[address]-78 Reviewed 04/13/2016 12:00 AM Decadron, Per 1 Mg [facility]# [address]-65 Re viewed 04/13/2016 12:00 AM THER/PROPH/DIAG INJ SC/IM Reviewed 10/29/2011 12:00 AM URINALYSIS AUTO W/O SCOPE Reviewed 10/28/2011 12:00 AM COMPLETE CBC W/AUTO DIFF WBC Returned 10/28/2011 12:00 AM COMPREHEN METABOLIC PANEL Returned 10/28/2011 12:00 AM URINE CULTURE/COLONY COUNT Returned 05/22/2016 12:00 AM ALLERGEN SPECIFIC IGE Returned 05/22/2016 12:00 AM Decadron, Per 1 Mg [facility]# [address]-77 Re viewed 05/22/2016 12:00 AM Depo-Medrol 40mg Reviewed 05/22/2016 12:00 AM THER/PROPH/DIAG INJ SC/IM Reviewed 07/21/2016 12:00 AM METABOLIC PANEL TOTAL CA Returned 07/21/2016 12:00 AM COMPLETE CBC W/AUTO DIFF WBC Returned 01/08/2012 12:00 AM THER/PROPH/DIAG INJ SC/IM Reviewed 01/08/2012 12:00 AM Depo-Medrol 40 mg [facility]#[id number] Reviewe d 03/12/2012 12:00 AM URINALYSIS AUTO [...] Per 1 Mg [facility]# [address]-28 Re viewed 01/10/2013 12:00 AM Depo-Medrol, Per 80 Mg [facility]#3439-7173-02 Reviewed 07/05/2013 12:00 AM Prolia, 60 Mg Reviewed 07/20/2013 12:00 AM THER/PROPH/DIAG INJ SC/IM Reviewed 07/20/2013 12:00 AM Depo-Medrol, Per 80 Mg [facility]#6009-7097-47 Reviewed 07/20/2013 12:00 AM Decadron, Per 1 Mg [facility]# [address]-96 Re viewed 05/13/2010 12:00 AM COMPREHEN METABOLIC [...] 10/24/2009 12:00 AM Kenalog 40 Mg [facility]#7078-0944-80 Review ed 12/26/2014 12:00 AM Prolia, 60 [...] /HPFTRICHOMONAS NEGATIVE YEAST NEGATIVE 05/22/2016 3:30 PM A102-XxE D pteronyssinus <0. 10 U/kCV213-NtK D farinae <0.10 U/jDB613-GgG Cat Dander <0.10 T632-CjY Dog Dander <0.10 U/tQS284-ZdF [place] Grass <0.10 U/gIB403-NeI Bluegrass,[place] <0.10 U/iJZ151-NxX [place] Grass <0.10 U/iXS884-PeJ Maple/[place] <0.10 U/tAA133-QkO Jber, White <0.10 U/iKF331- IgE Elm, Bulgarian <0.10 U/lUC681-QfB [place] <0.10 U/qVF511-FgG Merlin, White <0.10 U/kAO902-CwB Maple LeafSycamore <0.10 U/kUM781-KnX [place] <0.10 U/uCC298-WdE Milk <0.10 G487-QkG Wheat <0.10 U/cFO351-PyO [place] <0.10 U/iGI539- IgE Peanut <0.10 U/mNP241-AnD Soybean <0.10 U/iAM764-UuW Pork <0.10 U/sGR137-KtC Beef <0.10 U/wMGR19-PyQ Food Mix(Seafoods) Negative P507-TqM Egg, Whole <0.10 U/uGW167-WkM Chocolate/[place] <0.10 07/21/2016 3:26 PM GLUCOSE 104.0 mg/dLSODIUM [...] mammogram for breast cancer Aug 04 11:50AM Payers Insurance Name Company Name Plan Name Plan Number Policy Number Sanjay cy Group Number Start Date Medicare Part A Medicare C [id number] N/A [facility] hia Myla Ins [id number] N/A Medicare Part A ZZZMedicare P A - Preventive [id number] N/A Medicare Part A Medicare - Lab/Xray [id number] N/A BCBS Bcbs [facility] [id number] July 05, 2013 Medicare Part A Medicare Part A [id number] Friday, July 05, 2013 [employer] Bulgarian Retriement [id number] N/A Medicare Part B Medicare Of [place] [id number] Friday, July 05, 2013 History of Encounters Visit Date Visit Type Provider 07/21/2016 Office visit Jada Pulliam COMPLIANCE AUDITOR 07/10/2016 [facility] Sage Green MD 07/09/2016 Office visit Valorie Rocha BANNER PAINTER 05/22/2016 Nurse visit Jada Pulliam COMPLIANCE AUDITOR 04/13/2016 Office visit Katharina Murdock APR N 04/04/2016 Nurse visit Jada Pulliam COMPLIANCE AUDITOR 03/26/2016 Office visit Jada Pulliam COMPLIANCE AUDITOR 02/29/2016 Office visit Jada Pulliam COMPLIANCE AUDITOR 01/09/2016 Office visit Jada Pulliam COMPLIANCE AUDITOR 11/14/2015 Office visit Jada Pulliam COMPLIANCE AUDITOR 07/16/2015 Nurse visit Jada Pulliam COMPLIANCE AUDITOR 11/30/2014 Office visit Sharon Villanueva 10/18/2014 Office visit Jada Pulliam COMPLIANCE AUDITOR 08/17/2014 Office visit Jaylene Rebolledo MD 06/28/2014 Office visit Jada Pulliam COMPLIANCE AUDITOR 06/01/2014 Office visit Sharon Villanueva 04/28/2014 Nurse visit Jada Pulliam COMPLIANCE AUDITOR 07/20/2013 Office visit Jada Pulliam COMPLIANCE AUDITOR 07/05/2013 Nurse visit Jada Pulliam COMPLIANCE AUDITOR 01/10/2013 Office visit Jada Pulliam COMPLIANCE AUDITOR 12/29/2012 Nurse visit Jada Pulliam COMPLIANCE AUDITOR 06/16/2012 Office visit Jada Pulliam COMPLIANCE AUDITOR 05/04/2012 Office visit Jada Pulliam COMPLIANCE AUDITOR 03/10/2012 Office visit Jada Pulliam COMPLIANCE AUDITOR 03/04/2012 Office visit Jada Pulliam COMPLIANCE AUDITOR 01/13/2012 Office visit Ezequiel Mahan MD 01/08/2012 Nurse visit Mikki Carrasco MD 12/16/2011 Voided Ezequiel Mahan MD 11/28/2011 Office visit Ezequiel Mahan MD 10/28/2011 Office visit Jada Pulliam COMPLIANCE AUDITOR 08/14/2011 Office visit Ezequiel Mahan MD 08/07/2011 Nurse visit Ezequiel Mahan MD 06/03/2011 Office visit Jada Pulliam COMPLIANCE AUDITOR 05/07/2011 Office visit Ezequiel Mahan MD 04/28/2011 [...]
--- OUTSIDE RECORDS SUMMARY | 2019-12-14 18:23 | XMS REPORT ---
Author Author Shandra Dhaliwal Organization [facility] Address [address] [place] [id number] Care Team Providers Care Equity Structurer Name Role Phone Jessica Dhaliwal PCP Jada Pulliam PreferredProvider Unavailable Allergies and Adverse Reactions Name Reaction Notes ciprofloxacin migraine codeine sulfate Plan of Treatment Planned Activity Comments Planned Date Planned Time Plan/Goal Urine Culture, [place] Count 03/04/2016 12:00 AM lumbar pain 12/17/2015 [...] AM Rocephin 1 gram [facility]#8990-8804-97 Reviewe d 03/27/2016 12:00 AM URNLS DIP STICK/TABLET RGNT AUTO W/O KATHRIN ROSCOPY Returned 03/26/2016 12:00 AM Benadryl, Up to 50 Mg [facility]# 9931-9904-16 Reviewed 04/04/2016 12:00 AM IMMUNOTHERAPY ONE INJECTION Reviewed 10/29/2011 12:00 AM URINALYSIS AUTO W/O SCOPE Reviewed 10/28/2011 12:00 AM COMPLETE CBC W/AUTO DIFF WBC Reviewed 10/28/2011 12:00 AM COMPREHEN METABOLIC PANEL Reviewed 10/28/2011 12:00 AM URINE CULTURE/COLONY COUNT Reviewed 05/22/2016 12:00 AM ALLERGEN SPECIFIC IGE Returned 05/22/2016 12:00 AM Decadron, Per 1 Mg [facility]# [address]-77 Re viewed 05/22/2016 12:00 AM Depo-Medrol 40mg [...] AM Depo-Medrol 40 mg [facility]#[id number] Reviewe d 09/08/2016 12:00 AM METABOLIC PANEL TOTAL CA Returned 09/08/2016 12:00 AM COMPLETE CBC W/AUTO DIFF WBC Returned 09/08/2016 12:00 AM RADIOLOGIC EXAM CHEST 2 VIEWS FRONTAL&LA TERAL Returned 04/13/2016 12:00 AM Depo-Medrol, Per 80 Mg [facility]#[address]-60 Reviewed 04/13/2016 12:00 AM Decadron, Per 1 Mg [facility]# [address]-18 Re viewed 04/13/2016 12:00 AM THER/PROPH/DIAG INJ [...] Per 1 Mg [facility]# [address]-59 Re viewed 01/10/2013 12:00 AM Depo-Medrol, Per 80 Mg [facility]#5674-8096-02 Reviewed 07/05/2013 12:00 AM Prolia, 60 Mg Reviewed 07/20/2013 12:00 AM THER/PROPH/DIAG INJ SC/IM Reviewed 07/20/2013 12:00 AM Depo-Medrol, Per 80 Mg [facility]#1795-2093-31 Reviewed 07/20/2013 12:00 AM Decadron, Per 1 Mg [facility]# [address]-06 Re viewed 05/13/2010 12:00 AM COMPREHEN METABOLIC [...] 10/24/2009 12:00 AM Kenalog 40 Mg [facility]#2383-1498-82 Review ed 12/26/2014 12:00 AM Prolia, 60 [...] CULT SET UP? YES 05/22/2016 3:30 PM H696-DrS D pteronyssinus <0. 10 U/xMH451-HsA D farinae <0.10 U/wBT096-AjL Cat Dander <0.10 I206-DbW Dog Dander <0.10 U/jZI662-SiO [place] Grass <0.10 U/oQC661-VsY Bluegrass,[place] <0.10 U/jPJ765-VkH [place] Grass <0.10 U/yMU460-YfK Cockroach,[place] <0.10 C990-FxC Penicilliumchrysogen <0.10 H418-PsX Cladosporiumherbarum <0.10 D283-CxH Aspergillusfumigatus <0.10 L300-CrL Mucor racemosus <0.10 F048-JqP Alternariaalternata <0.10 X429-VwM Stemphyliumherbarum <0.10 C579-XkK Maple/[place] <0.10 U/xIX614-NgZ Angel Fire, White <0.10 U/sGM807-ZmU Elm, [place] <0.10 U/iBS338-XvB [place] <0.10 U/tTS610-XhT Merlin, White <0.10 U/fBF408-ZbJ Maple LeafSycamore <0.10 U/tLS180-PzB [place] <0.10 U/xUG897-YsS Ragweed, Short <0.10 Q115-IfZ [place] <0.10 W009- IgE Plantain,Bulgarian <0.10 O843-YqI Thistle, [place] <0.10 P352-OiV Pigweed, Common <0.10 A864-ApB Sheep [place] <0.10 D046-IqJ Milk <0.10 T936-OiO Wheat <0.10 U/wOO057-GfJ [place] <0.10 U/xZX417-ZkM Peanut <0.10 U/yBL845-WkM Soybean <0.10 U/rSK044-IuA Pork <0.10 U/jFO440-CtB Beef <0.10 U/lRCW28-DtC Food Mix(Seafoods) Negative J491-YgS Egg, Whole <0.10 U/aXV721-EwH Chocolate/[place] <0.10 07/21/2016 3:26 PM GLUCOSE 104.0 mg/dLSODIUM [...] due to other specified organisms Aug 12 1:32PM Cough present for greater than 3 weeks Sep 08 2016 11:24AM Payers Insurance Name Company Name Plan Name Plan Number Policy Number Sanjay cy Group Number Start Date Medicare [facility] Medicare C [id number] N/A [place] [facility] [employer] Ins [id number] N/A Medicare Part A ZZZMedicare P A - Preventive [id number] N/A Medicare Part A Medicare - Lab/Xray [id number] N/A BCBS Bcbs [facility] [id number] July 05, 2013 Medicare Part A Medicare Part A [id number] Friday, July 05, [address] [place] Retriement [id number] N/A Medicare Part B Medicare Of [place] [id number] Friday, July 05, 2013 History of Encounters Visit Date Visit Type Provider 10/07/2016 Hospital Jessica Dhaliwal MD 08/12/2016 Office visit Jada Pulliam MULTI MISSION HELICOPTER AIRCREWMAN 08/05/2016 Office visit Jada Pulliam MULTI MISSION HELICOPTER AIRCREWMAN 07/21/2016 Office visit Jada Pulliam MULTI MISSION HELICOPTER AIRCREWMAN 07/10/2016 [facility] Sage Green MD 07/09/2016 Office visit Valorie MCCLURE 07/09/2016 [facility] Jessica Dhaliwal MD 05/22/2016 Nurse visit Jada Pulliam MULTI MISSION HELICOPTER AIRCREWMAN 04/13/2016 Office visit Katharina Murdock APR N 04/04/2016 Nurse visit Jada Pulliam MULTI MISSION HELICOPTER AIRCREWMAN 03/26/2016 Office visit Jada Pulliam MULTI MISSION HELICOPTER AIRCREWMAN 02/29/2016 Office visit Jada Pulliam MULTI MISSION HELICOPTER AIRCREWMAN 01/09/2016 Office visit Jada Pulliam MULTI MISSION HELICOPTER AIRCREWMAN 11/14/2015 Office visit Jada Pulliam MULTI MISSION HELICOPTER AIRCREWMAN 07/16/2015 Nurse visit Jada Pulliam MULTI MISSION HELICOPTER AIRCREWMAN 11/30/2014 Office visit Sharon Villanueva 10/18/2014 Office visit Jada Pulliam MULTI MISSION HELICOPTER AIRCREWMAN 08/17/2014 Office visit Jaylene Rebolledo MD 06/28/2014 Office visit Jada Pulliam MULTI MISSION HELICOPTER AIRCREWMAN 06/01/2014 Office visit Sharon Villanueva 04/28/2014 Nurse visit Jada Walker MULTI MISSION HELICOPTER AIRCREWMAN 07/20/2013 Office visit Jada Walker MULTI MISSION HELICOPTER AIRCREWMAN 07/05/2013 Nurse visit Jada Walker MULTI MISSION HELICOPTER AIRCREWMAN 01/10/2013 Office visit Jada Walker MULTI MISSION HELICOPTER AIRCREWMAN 12/29/2012 Nurse visit Jada Pulliam MULTI MISSION HELICOPTER AIRCREWMAN 06/16/2012 Office visit Jada Pulliam MULTI MISSION HELICOPTER AIRCREWMAN 05/04/2012 Office visit Jada Pulliam MULTI MISSION HELICOPTER AIRCREWMAN 03/10/2012 Office visit Jada Pulliam MULTI MISSION HELICOPTER AIRCREWMAN 03/04/2012 Office visit Jada Pulliam MULTI MISSION HELICOPTER AIRCREWMAN 01/13/2012 Office visit Ezequiel Mahan MD 01/08/2012 Nurse visit Mikki Carrasco MD 12/16/2011 Voided Ezequiel Mahan MD 11/28/2011 Office visit Ezequiel Mahan MD 10/28/2011 Office visit Jada Pulliam MULTI MISSION HELICOPTER AIRCREWMAN 08/14/2011 Office visit Ezequiel Mahan MD 08/07/2011 Nurse visit Ezequiel Mhaan MD 06/03/2011 Office visit Jada Pulliam MULTI MISSION HELICOPTER AIRCREWMAN 05/07/2011 Office visit Ezequiel Mahan MD 04/28/2011 [...]
--- OUTSIDE RECORDS SUMMARY | 2019-12-14 18:24 | XMS REPORT ---
Author Author Shandra Dhaliwal Organization [facility] Address [address] [place] [id number] Care Team Providers Care Analysis Engineer Name Role Phone Jessica Dhaliwal PCP Jada Pulliam PreferredProvider Unavailable Allergies and Adverse Reactions Name Reaction Notes ciprofloxacin migraine codeine sulfate Plan of Treatment Planned Activity Comments Planned Date Planned Time Plan/Goal Urine Culture, [place] Count 03/04/2016 12:00 AM lumbar pain 12/17/2015 [...] [address] [facility]#3854-4537-70 Reviewe d 03/27/2016 12:00 AM INJECT SPINE LUMBAR/SACRAL Reviewed 03/27/2016 12:00 AM URNLS DIP STICK/TABLET RGNT AUTO W/O KATHRIN ROSCOPY Reviewed 03/26/2016 12:00 AM Benadryl, Up to [address] [facility]# 8207-1455-59 Reviewed 04/04/2016 12:00 AM IMMUNOTHERAPY ONE INJECTION Reviewed 10/29/2011 12:00 AM URINALYSIS AUTO W/O SCOPE Reviewed 10/28/2011 12:00 AM COMPLETE CBC W/AUTO DIFF WBC Reviewed 10/28/2011 12:00 AM COMPREHEN METABOLIC PANEL Reviewed 10/28/2011 12:00 AM URINE CULTURE/COLONY COUNT Reviewed 05/22/2016 12:00 AM ALLERGEN SPECIFIC IGE Reviewed 05/22/2016 12:00 AM Decadron, Per [address] [facility]# [address]-35 Re viewed 05/22/2016 12:00 AM Depo-Medrol 40mg [...] [address] [facility]#[id number] Reviewe d 09/08/2016 12:00 AM METABOLIC PANEL TOTAL CA Reviewed 09/08/2016 12:00 AM COMPLETE CBC W/AUTO DIFF WBC Reviewed 09/08/2016 12:00 AM RADIOLOGIC EXAM CHEST 2 VIEWS FRONTAL&LA TERAL Reviewed 04/13/2016 12:00 AM Depo-Medrol, Per 80 Mg [facility]#[address]-67 Reviewed 04/13/2016 12:00 AM Decadron, Per 1 Mg ND# [address]-47 Re viewed 04/13/2016 12:00 AM THER/PROPH/DIAG INJ [...] 12:00 AM Decadron, Per 1 Mg ND# [address]-55 Re viewed 01/10/2013 12:00 AM Depo-Medrol, Per 80 Mg [facility]#4798-4164-11 Reviewed 07/05/2013 12:00 AM Prolia, 60 Mg Reviewed 07/20/2013 12:00 AM THER/PROPH/DIAG INJ SC/IM Reviewed 07/20/2013 12:00 AM Depo-Medrol, Per 80 Mg [facility]#2556-1063-62 Reviewed 07/20/2013 12:00 AM Decadron, Per [address] [facility]# [address]-14 Re viewed 05/13/2010 12:00 AM COMPREHEN METABOLIC [...] Reviewed 10/24/2009 12:00 AM Kenalog [address] [facility]#3751-9191-80 Review ed 12/26/2014 12:00 AM Prolia, 60 [...] CULT SET UP? YES 05/22/2016 3:30 PM P402-AnH D pteronyssinus <0. 10 U/xOU520-NsT D farinae <0.10 U/pOU834-KdJ Cat Dander <0.10 I620-MqY Dog Dander <0.10 U/uLG583-BsQ [place] Grass <0.10 U/yHH567-XrB Bluegrass,[place] <0.10 U/aOE611-IwN [place] Grass <0.10 U/aCC842-DnU Cockroach,Somali <0.10 U828-YnN Penicilliumchrysogen <0.10 R389-DxM Cladosporiumherbarum <0.10 O039-TyJ Aspergillusfumigatus <0.10 H671-NyH Mucor racemosus <0.10 L112-DlU Alternariaalternata <0.10 L942-FvK Stemphyliumherbarum <0.10 T294-MpE Maple/[place] <0.10 U/tEQ271-GdG [place], White <0.10 U/qQI899-JeG Elm, Somali <0.10 U/sEA690-WeY [place] <0.10 U/fEQ620-TcL Merlin, White <0.10 U/aTD645-NmP Maple LeafSycamore <0.10 U/iXR162-PrR White [place] <0.10 U/dNL913-VvP Ragweed, Short <0.10 K226-XoL [place] <0.10 W009- IgE Plantain,Libyan <0.10 B081-UjN Thistle, Trinidadian <0.10 K843-AsD Pigweed, Common <0.10 E963-XhM Sheep [place] <0.10 S252-OeB Milk <0.10 L809-LyB Wheat <0.10 U/sRQ060-KpP [place] <0.10 U/bXU494-PxV Peanut <0.10 U/dSC689-NwM Soybean <0.10 U/vGZ140-RtU Pork <0.10 U/yRA983-FsC Beef <0.10 U/dTGU77-HuT Food Mix(Seafoods) Negative Q282-DyY Egg, Whole <0.10 U/dFT442-HrT Chocolate/[place] <0.10 07/21/2016 3:26 PM GLUCOSE 104.0 mg/dLSODIUM [...] Not Entered 10/05/2019 10/05/2019 999 Tdap 07/16/2015 GlaxZady SKB BOOSTRIX H9P57 Intramuscula r Right Deltoid [...] Number Start Date Medicare RH Medicare C [id number] N/A [employer] [facility] hia Somali Life Ins [id number] N/A Medicare Part A ZZZMedicare P A - Preventive [id number] N/A Medicare Part A Medicare - Lab/Xray [id number] N/A BCBS Bcbs [facility] [id number] July 05, 2013 Medicare Part A Medicare Part A [id number] Friday, July 05, 2013 [email or web address] Somali Retriement [id number] N/A Medicare Part B Medicare Of [place] [id number] Friday, July 05, 2013 History of Encounters Visit Date Visit Type Provider 10/07/2016 Hospital Jessica Dhaliwal MD 08/12/2016 Office visit Jada Pulliam SHELLFISH HARVESTER 08/05/2016 Office visit Jada Pulliam APRN 07/21/2016 Office visit Jada Pulliam SHELLFISH HARVESTER 07/10/2016 [facility] Sage Green MD 07/09/2016 Office visit Valorie MCCLURE 07/09/2016 [facility] Jessica Dhaliwal MD 05/22/2016 Nurse visit Jada Walker SHELLFISH HARVESTER 04/13/2016 Office visit Katharina LGuy Murdock APR N 04/04/2016 Nurse visit Jada Walker SHELLFISH HARVESTER 03/26/2016 Office visit Jada Walker SHELLFISH HARVESTER 02/29/2016 Office visit Jada Walker SHELLFISH HARVESTER 01/09/2016 Office visit Jada Walker SHELLFISH HARVESTER 11/14/2015 Office visit Jada Walker SHELLFISH HARVESTER 07/16/2015 Nurse visit Jada Walker SHELLFISH HARVESTER 11/30/2014 Office visit Sharon Villanueva 10/18/2014 Office visit Jada Walker SHELLFISH HARVESTER 08/17/2014 Office visit Jaylene Rebolledo MD 06/28/2014 Office visit Jada Walker SHELLFISH HARVESTER 06/01/2014 Office visit Sharon Villanueva 04/28/2014 Nurse visit Jada Walker SHELLFISH HARVESTER 07/20/2013 Office visit Jada Walker SHELLFISH HARVESTER 07/05/2013 Nurse visit Jada Walker SHELLFISH HARVESTER 01/10/2013 Office visit Jada Walker SHELLFISH HARVESTER 12/29/2012 Nurse visit Jada Walker SHELLFISH HARVESTER 06/16/2012 Office visit Jada Walker SHELLFISH HARVESTER 05/04/2012 Office visit Jada Walker SHELLFISH HARVESTER 03/10/2012 Office visit Jada Walker SHELLFISH HARVESTER 03/04/2012 Office visit Jada Walker SHELLFISH HARVESTER 01/13/2012 Office visit Ezequiel Mahan MD 01/08/2012 Nurse visit Mikki Carrasco MD 12/16/2011 Voided Ezequiel Mahan MD 11/28/2011 Office visit Ezequiel Mahan MD 10/28/2011 Office visit Jada Pulliam SHELLFISH HARVESTER 08/14/2011 Office visit Ezequiel Mahan MD 08/07/2011 Nurse visit Ezequiel Mahan MD 06/03/2011 Office visit Jada Pulliam SHELLFISH HARVESTER 05/07/2011 Office visit Ezequiel Mahan MD 04/28/2011 [...]
--- OUTSIDE RECORDS SUMMARY | 2019-12-14 18:24 | XMS REPORT ---
Author Shandra Porter Organization [facility] Address [address] [place], [place] [address] Care Team Providers Care Media Traffic Manager Name Role Phone Jada Pulliam PCP Unavailable Allergies and Adverse Reactions Name Reaction Notes ciprofloxacin migraine codeine sulfate Plan of Treatment Planned Activity Comments Planned Date Planned Time Plan/Goal URINE CULTURE/COLONY COUNT 03/04/2016 12:00 AM ALLERGEN SPECIFIC IGE 05/22/2016 12:00 AM lumbar pain 12/17/2015 2:00 PM [...] 12:00 AM Rocephin 1 gram [facility]#8871-4324-78 Reviewe d 03/27/2016 12:00 AM URNLS DIP STICK/TABLET RGNT AUTO W/O KATHRIN ROSCOPY Returned 03/26/2016 12:00 AM Benadryl, Up to 50 Mg [facility]# 6100-6193-70 Reviewed 04/04/2016 12:00 AM IMMUNOTHERAPY ONE INJECTION Reviewed 04/13/2016 12:00 AM Depo-Medrol, Per 80 Mg [place]#[address]-38 Reviewed 04/13/2016 12:00 AM Decadron, Per 1 Mg [facility]# [address]-84 Re viewed 04/13/2016 12:00 AM THER/PROPH/DIAG INJ SC/IM Reviewed 10/29/2011 12:00 AM URINALYSIS AUTO W/O SCOPE Reviewed 10/28/2011 12:00 AM COMPLETE CBC W/AUTO DIFF WBC Returned 10/28/2011 12:00 AM COMPREHEN METABOLIC PANEL Returned 10/28/2011 12:00 AM URINE CULTURE/COLONY COUNT Returned 05/22/2016 12:00 AM Decadron, Per 1 Mg [facility]# [address]-76 Re viewed 05/22/2016 12:00 AM Depo-Medrol 40mg Reviewed 05/22/2016 12:00 AM THER/PROPH/DIAG INJ SC/IM Reviewed 01/08/2012 12:00 AM THER/PROPH/DIAG INJ SC/IM Reviewed 01/08/2012 12:00 AM Depo-Medrol 40 mg [facility]#[id number] Reviewe d 03/12/2012 12:00 AM URINALYSIS AUTO [...] AM Decadron, Per 1 Mg [facility]# [address]-69 Re viewed 01/10/2013 12:00 AM Depo-Medrol, Per 80 Mg [facility]#2252-6543-34 Reviewed 07/05/2013 12:00 AM Prolia, 60 Mg Reviewed 07/20/2013 12:00 AM THER/PROPH/DIAG INJ SC/IM Reviewed 07/20/2013 12:00 AM Depo-Medrol, Per 80 Mg [facility]#5945-9029-24 Reviewed 07/20/2013 12:00 AM Decadron, Per 1 Mg [facility]# [address]-73 Re viewed 05/13/2010 12:00 AM COMPREHEN METABOLIC [...] 40 Mg [facility]#4375-3219-96 Review ed 12/26/2014 12:00 AM Prolia, 60 [...] Not Entered 10/05/2019 10/05/2019 999 Tdap 07/16/2015 GlaxLiquidFrameworksine SKB BOOSTRIX H9P57 Intramuscula r Right Deltoid [...] Number Start Date Medicare Part A Medicare [facility] [id number] N/A [place] [employer] [facility] hi Kazakh Life [facility] [id number] N/A Medicare Part A ZZZMedicare P A - Preventive [id number] N/A Medicare Part A Medicare - Lab/Xray [id number] N/A BCBS Bcbs [id number] July 05, 2013 Medicare Part A Medicare Part A [id number] Friday, July 05, 2013 [facility] Kazakh Retriement [id number] N/A Medicare Part B Medicare Of [place] [id number] Friday, July 05, 2013 History of Encounters Visit Date Visit Type Provider 05/22/2016 Nurse visit Jada Walker MANAGER LOAN 04/13/2016 Office visit Katharina Murdock APR N 04/04/2016 Nurse visit Jada Walker MANAGER LOAN 03/26/2016 Office visit Jada Walker MANAGER LOAN 02/29/2016 Office visit Jada Walker MANAGER LOAN 01/09/2016 Office visit Jada Walker MANAGER LOAN 11/14/2015 Office visit Jada Walker MANAGER LOAN 07/16/2015 Nurse visit Jada Walker MANAGER LOAN 11/30/2014 Office visit Sharon Villanueva 10/18/2014 Office visit Jada Walker MANAGER LOAN 08/17/2014 Office visit Jaylene Rebolledo MD 06/28/2014 Office visit Jada Walker MANAGER LOAN 06/01/2014 Office visit Sharon Villanueva 04/28/2014 Nurse visit Jada Walker MANAGER LOAN 07/20/2013 Office visit Jada Walker MANAGER LOAN 07/05/2013 Nurse visit Jada Walker MANAGER LOAN 01/10/2013 Office visit Jada Walker MANAGER LOAN 12/29/2012 Nurse visit Jada Walker MANAGER LOAN 06/16/2012 Office visit Jada Walker MANAGER LOAN 05/04/2012 Office visit Jada Walker MANAGER LOAN 03/10/2012 Office visit Jada Walker MANAGER LOAN 03/04/2012 Office visit Jada Walker MANAGER LOAN 01/13/2012 Office visit Ezequiel Mahan MD 01/08/2012 Nurse visit Mikki Carrasco MD 12/16/2011 Neris Mahan MD 11/28/2011 Office visit Ezequiel Mahan MD 10/28/2011 Office visit Jada Pulliam MANAGER LOAN 08/14/2011 Office visit Ezequiel Mahan MD 08/07/2011 Nurse visit Ezequiel Mahan MD 06/03/2011 Office visit Jada Pulliam MANAGER LOAN 05/07/2011 Office visit Ezequiel Mahan MD 04/28/2011 [...]
--- OUTSIDE RECORDS SUMMARY | 2019-12-14 18:25 | XMS REPORT ---
Author Shandra Porter Organization [facility] Address [address] [place], [place] [address] Care Team Providers Care Fine Arts Instructor Name Role Phone Jada Pulliam PCP Unavailable [...] every 6 hours as needed for pain Bactrim DS 800-160 mg oral tablet 02/29/2016 03/07/2016 take 1 tablet by oral route every 12 hours for 7 days Name Start Date Expiration [...] HC BMI BSA BMI Percentile O2 Sat(%) 02/29/2016 11:28:00 AM 136 mmHg 78 mmHg [...] Returned 02/29/2016 12:00 AM Rocephin 1 gram [facility]#8227-1294-50 Reviewe d 10/29/2011 12:00 AM URINALYSIS AUTO W/O SCOPE Reviewed 10/28/2011 12:00 AM COMPLETE CBC W/AUTO DIFF WBC Returned 10/28/2011 12:00 AM COMPREHEN METABOLIC PANEL Returned 10/28/2011 12:00 AM URINE CULTURE/COLONY COUNT Returned 01/08/2012 12:00 AM THER/PROPH/DIAG INJ SC/IM Reviewed 01/08/2012 12:00 AM Depo-Medrol 40 mg [facility]#[id number] Reviewe d 03/12/2012 12:00 AM URINALYSIS AUTO [...] 01/10/2013 12:00 AM Decadron, Per 1 Mg [facility]# [address]-48 Re viewed 01/10/2013 12:00 AM Depo-Medrol, Per 80 Mg [facility]#7107-2387-71 Reviewed 07/05/2013 12:00 AM Prolia, 60 Mg Reviewed 07/20/2013 12:00 AM THER/PROPH/DIAG INJ SC/IM Reviewed 07/20/2013 12:00 AM Depo-Medrol, Per 80 Mg [facility]#0859-4502-80 Reviewed 07/20/2013 12:00 AM Decadron, Per 1 Mg [facility]# [address]-16 Re viewed 05/13/2010 12:00 AM COMPREHEN METABOLIC [...] AM Kenalog 40 Mg [facility]#0404-5180-91 Review ed 12/26/2014 12:00 AM Prolia, 60 [...] Lumbar spinal stenosis Feb 29 2016 11:30AM Payers Insurance Name Company Name Plan Name Plan Number Policy Number Sanjay cy Group Number Start Date Medicare Part A Medicare [facility] [id number] N/A [employer] [facility] Polish Life Ins [id number] N/A Medicare Part A Medicare P A - Preventive [id number] N/A Medicare Part A Medicare - Lab/Xray [id number] N/A [facility] [id number] July 05, 2013 Medicare Part A Medicare Part A [id number] Friday, July 05, 2013 [facility] [employer] Insurance [place] Retriement [id number] N/A Medicare Part B Medicare Of [place] [id number] Friday, July 05, 2013 History of Encounters Visit Date Visit Type Provider 02/29/2016 Office visit Jada Pulliam APRN 01/09/2016 Office visit Jdaa Pulliam TOE CLOSING MACHINE TENDER 11/14/2015 Office visit Jada Pulliam TOE CLOSING MACHINE TENDER 07/16/2015 Nurse visit Jada Pulliam TOE CLOSING MACHINE TENDER 11/30/2014 Office visit Sharon Villanueva 10/18/2014 Office visit Jada Pulliam TOE CLOSING MACHINE TENDER 08/17/2014 Office visit Jaylene Rebolledo MD 06/28/2014 Office visit Jada Pulliam TOE CLOSING MACHINE TENDER 06/01/2014 Office visit Sharon Villanueva 04/28/2014 Nurse visit Jada Pulliam TOE CLOSING MACHINE TENDER 07/20/2013 Office visit Jada Pulliam TOE CLOSING MACHINE TENDER 07/05/2013 Nurse visit Jada Pulliam TOE CLOSING MACHINE TENDER 01/10/2013 Office visit Jada Pulliam TOE CLOSING MACHINE TENDER 12/29/2012 Nurse visit Jada Walker TOE CLOSING MACHINE TENDER 06/16/2012 Office visit Jada Pulliam TOE CLOSING MACHINE TENDER 05/04/2012 Office visit Jada Pulliam TOE CLOSING MACHINE TENDER 03/10/2012 Office visit Jada Pulliam TOE CLOSING MACHINE TENDER 03/04/2012 Office visit Jada Pulliam TOE CLOSING MACHINE TENDER 01/13/2012 Office visit Ezequiel Mahan MD 01/08/2012 Nurse visit Mikki Carrasco MD 12/16/2011 Voided Ezequiel Mahan MD 11/28/2011 Office visit Ezequiel Mahan MD 10/28/2011 Office visit Jada Heraclio TOE CLOSING MACHINE TENDER 08/14/2011 Office visit Ezequiel Mahan MD 08/07/2011 Nurse visit Ezequiel Mahan MD 06/03/2011 Office visit Jada Pulliam TOE CLOSING MACHINE TENDER 05/07/2011 Office visit Ezequiel Mahan [...] Laboratory Braydon Ramirez DO 07/02/2009 Office visit Braydno Ramirez DO
--- OUTSIDE RECORDS SUMMARY | 2019-12-14 18:26 | XMS REPORT ---
Author Shandra Porter Organization [facility] Address [address] [place], [place] [address] Care Team Providers Care Expense Clerk Name Role Phone Jada Pulliam PCP Unavailable [...] TABLET BY MOUTH ONCE DAILY AT BEDTIME Zithromax Z-Meliton 250 mg oral tablet 09/14/2015 09/19/2015 take 2 tablets (500 mg) by oral route once daily for 1 day then 1 tablet (250 mg) by oral route once daily for 4 days promethazine-DM 6.25-15 mg/5 mL oral syrup 09/14/2015 take 5 milliliters by oral route every 6 hours as needed Name Start Date Expiration Date SIG [...] Depo-Medrol 40 mg [facility]#[id number] Reviewe d 03/12/2012 12:00 AM URINALYSIS AUTO [...] 1 Mg [facility]# [address]-02 Re viewed 01/10/2013 12:00 AM Depo-Medrol, Per 80 Mg [facility]#6661-6174-62 Reviewed 07/05/2013 12:00 AM Prolia, 60 Mg Reviewed 07/20/2013 12:00 AM THER/PROPH/DIAG INJ SC/IM Reviewed 07/20/2013 12:00 AM Depo-Medrol, Per 80 Mg [facility]#8256-9572-86 Reviewed 07/20/2013 12:00 AM Decadron, Per 1 Mg [facility]# [address]-23 Re viewed 05/13/2010 12:00 AM COMPREHEN METABOLIC [...] 10/24/2009 12:00 AM Kenalog 40 Mg [facility]#0458-5942-93 Review ed 12/26/2014 12:00 AM Prolia, 60 [...] Not Entered 10/05/2019 10/05/2019 999 Tdap 07/16/2015 PCA Auditine SKB BOOSTRIX [id number] Intramuscula r Right Deltoid [...] Date Medicare Part A Medicare Part A [id number] Friday, 2013 [place] [employer] [facility] [employer] Ins [id number] N/A Medicare Part A Medicare P A - Preventive [id number] N/A [employer] Insurance [place]ri[place] [id number] N/A Medicare Part B Medicare Of [place] [id number] Friday, 2013 Bcbs Bcbs [facility] [id number] 2013 History of Encounters Visit Date Visit Type Provider 07/16/2015 Nurse visit Jada Pulliam APRN 11/30/2014 Office visit Sharon Villanueva 10/18/2014 Office visit Jada Pulliam HUMAN RESOURCE MANAGER 08/17/2014 Office visit Jaylene Rebolledo MD 06/28/2014 Office visit Jada Pulliam APRN 06/01/2014 Office visit Sharon Villanueva 04/28/2014 Nurse visit Jada Pulliam APRN 07/20/2013 Office visit Jada Pulliam APRN 07/05/2013 Nurse visit Jada Pulliam APRN 01/10/2013 Office visit Jada Pulliam HUMAN RESOURCE MANAGER 12/29/2012 Nurse visit Jada Pulliam HUMAN RESOURCE MANAGER 06/16/2012 Office visit Jada Pulliam HUMAN RESOURCE MANAGER 05/04/2012 Office visit Jada Pulliam HUMAN RESOURCE MANAGER 03/10/2012 Office visit Jada Pulliam HUMAN RESOURCE MANAGER 03/04/2012 Office visit Jada Pulliam HUMAN RESOURCE MANAGER 01/13/2012 Office visit Ezequiel Mahan MD 01/08/2012 Nurse visit Mikki Carrasco MD 12/16/2011 Voided Ezequiel Mahan MD 11/28/2011 Office visit Ezequiel Mahan MD 10/28/2011 Office visit Jada Heraclio HUMAN RESOURCE MANAGER 08/14/2011 Office visit Ezequiel Mahan MD 08/07/2011 Nurse visit Ezequiel Mahan MD 06/03/2011 Office visit Jada Pulliam HUMAN RESOURCE MANAGER 05/07/2011 Office visit Ezequiel Mahan MD [...]
--- OUTSIDE RECORDS SUMMARY | 2019-12-14 18:26 | XMS REPORT ---
Author Shandra Porter Organization [facility] Address [address] [place], [place] [address] Care Team Providers Care Jewel Sorter Name Role Phone Jada Pulliam PCP Unavailable [...] prednisone 20 mg oral tablet 05/03/2012 05/13/2012 adnerson e 3 tabs by mouth x2 days [...] 12:00 AM Depo-Medrol 40 mg [facility]#[id number] Reviewe d 03/12/2012 12:00 AM URINALYSIS AUTO [...] Decadron, Per 1 Mg [facility]# [address]-30 Re viewed 01/10/2013 12:00 AM Depo-Medrol, Per 80 Mg [facility]#0375-9052-89 Reviewed 07/05/2013 12:00 AM Prolia, 60 Mg Reviewed 07/20/2013 12:00 AM THER/PROPH/DIAG INJ SC/IM Reviewed 07/20/2013 12:00 AM Depo-Medrol, Per 80 Mg [facility]#2120-6556-51 Reviewed 07/20/2013 12:00 AM Decadron, Per 1 Mg [facility]# [address]-01 Re viewed 05/13/2010 12:00 AM COMPREHEN METABOLIC [...] Reviewed 10/24/2009 12:00 AM Kenalog 40 Mg [facility]#7649-3336-30 Review ed 12/26/2014 12:00 AM Prolia, 60 [...] Not Entered 10/05/2019 10/05/2019 999 Tdap 07/16/2015 Message Missile SKB BOOSTRIX [id number] Intramuscula r Right Deltoid [...] Date Medicare Part A Medicare Part A [id number] Friday, 2013 [employer] Insurance Company [facility] Taj[place] Life Ins [id number] N/A Medicare Part A Medicare P A - Preventive [id number] N/A [employer] Insurance [place] Retriement [id number] N/A Medicare Part B Medicare Of [place] [id number] Friday, 2013 BCBS [facility] [id number] 2013 History of Encounters Visit Date Visit Type Provider 11/14/2015 Office visit Jada Pulliam CHIP MIXING MACHINE OPERATOR 07/16/2015 Nurse visit Jada Pulliam CHIP MIXING MACHINE OPERATOR 11/30/2014 Office visit Sharon Villanueva 10/18/2014 Office visit Jada Pulliam CHIP MIXING MACHINE OPERATOR 08/17/2014 Office visit Jaylene Rebolledo MD 06/28/2014 Office visit Jada Pulliam CHIP MIXING MACHINE OPERATOR 06/01/2014 Office visit Sharon Villanueva 04/28/2014 Nurse visit Jada Pulliam CHIP MIXING MACHINE OPERATOR 07/20/2013 Office visit Jada Pulliam CHIP MIXING MACHINE OPERATOR 07/05/2013 Nurse visit Jada Pulliam CHIP MIXING MACHINE OPERATOR 01/10/2013 Office visit Jada Pulliam CHIP MIXING MACHINE OPERATOR 12/29/2012 Nurse visit Jada Pulliam CHIP MIXING MACHINE OPERATOR 06/16/2012 Office visit Jada Pulliam CHIP MIXING MACHINE OPERATOR 05/04/2012 Office visit Jada Pulliam CHIP MIXING MACHINE OPERATOR 03/10/2012 Office visit Jada Pulliam CHIP MIXING MACHINE OPERATOR 03/04/2012 Office visit Jada Pulliam CHIP MIXING MACHINE OPERATOR 01/13/2012 Office visit Ezequiel Mahan MD 01/08/2012 Nurse visit Mikki Carrasco MD 12/16/2011 Voided Ezequiel Mahan MD 11/28/2011 Office visit Ezequiel Mahan MD 10/28/2011 Office visit Jada Pulliam CHIP MIXING MACHINE OPERATOR 08/14/2011 Office visit Ezequiel Mahan MD 08/07/2011 Nurse visit Ezequiel Mahan MD 06/03/2011 Office visit Jada Pulliam CHIP MIXING MACHINE OPERATOR 05/07/2011 Office visit Ezequiel Mahan [...]
--- OUTSIDE RECORDS SUMMARY | 2019-12-14 18:27 | XMS REPORT ---
Author Shandra Lagos Organization [facility] Address [address] [place], [place] [address] Care Team Providers Care Lead Cashier Name Role Phone Katharina Murdock PCP Jada Pulliam PreferredProvider Allergies and Adverse Reactions Name Reaction Notes ciprofloxacin migraine codeine sulfate Plan of Treatment Planned Activity Comments Planned Date Planned Time Plan/Goal Urine Culture, Pansey Count 03/04/2016 12:00 AM lumbar pain 12/17/2015 [...] Rocephin 1 gram [facility]#4624-0612-95 Reviewe d 03/27/2016 12:00 AM INJECT SPINE LUMBAR/SACRAL Reviewed 03/27/2016 12:00 AM URNLS DIP STICK/TABLET RGNT AUTO W/O KATHRIN ROSCOPY Reviewed 03/26/2016 12:00 AM Benadryl, Up to 50 Mg [facility]# 9115-9958-45 Reviewed 04/04/2016 12:00 AM IMMUNOTHERAPY ONE INJECTION Reviewed 10/29/2011 12:00 AM URINALYSIS AUTO W/O SCOPE Reviewed 10/28/2011 12:00 AM COMPLETE CBC W/AUTO DIFF WBC Reviewed 10/28/2011 12:00 AM COMPREHEN METABOLIC PANEL Reviewed 10/28/2011 12:00 AM URINE CULTURE/COLONY COUNT Reviewed 05/22/2016 12:00 AM ALLERGEN SPECIFIC IGE Reviewed 05/22/2016 12:00 AM Decadron, Per 1 Mg [facility]# [address]-19 Re viewed 05/22/2016 12:00 AM Depo-Medrol 40mg [...] Depo-Medrol 40 mg [facility]#[id number] Reviewe d 09/08/2016 12:00 AM METABOLIC PANEL TOTAL CA Reviewed 09/08/2016 12:00 AM COMPLETE CBC W/AUTO DIFF WBC Reviewed 09/08/2016 12:00 AM RADIOLOGIC EXAM CHEST 2 VIEWS FRONTAL&LA TERAL Reviewed 04/13/2016 12:00 AM Depo-Medrol, Per 80 Mg [place]#[address]-57 Reviewed 04/13/2016 12:00 AM Decadron, Per 1 Mg [facility]# [address]-18 Re viewed 04/13/2016 12:00 AM THER/PROPH/DIAG INJ [...] 2:15 PM URINALYSIS AUTO W/O SCOPE Reviewed 01/03/2018 12:00 AM URINE CULTURE/COLONY COUNT Reviewed 12/01/2012 12:00 AM COMPREHEN METABOLIC PANEL Reviewed 12/29/2012 12:00 AM Prolia, 60 Mg Reviewed 12/29/2012 12:00 AM THER/PROPH/DIAG INJ SC/IM Reviewed 01/10/2013 12:00 AM THER/PROPH/DIAG INJ SC/IM Reviewed 01/10/2013 12:00 AM Decadron, Per 1 Mg [facility]# [address]-28 Re viewed 01/10/2013 12:00 AM Depo-Medrol, Per 80 Mg [facility]#1061-9846-59 Reviewed 07/05/2013 12:00 AM Prolia, 60 Mg Reviewed 07/20/2013 12:00 AM THER/PROPH/DIAG INJ SC/IM Reviewed 07/20/2013 12:00 AM Depo-Medrol, Per 80 Mg [facility]#6615-4085-55 Reviewed 07/20/2013 12:00 AM Decadron, Per 1 Mg [facility]# [address]-79 Re viewed 05/13/2010 12:00 AM COMPREHEN METABOLIC [...] Kenalog 40 Mg [facility]#5833-2278-63 Review ed 12/26/2014 12:00 AM Prolia, 60 [...] CULT SET UP? YES 05/22/2016 3:30 PM U066-CjC D pteronyssinus <0. 10 U/lYS344-KkP D farinae <0.10 U/sRP894-NdA Cat Dander <0.10 A118-IoR Dog Dander <0.10 U/yJH784-XxQ [place] Grass <0.10 U/aPY336-ZwW Bluegrass,[place] <0.10 U/mUG164-IzS [place] Grass <0.10 U/oOE161-TfT Cockroach,Armenian <0.10 A010-SqR Penicilliumchrysogen <0.10 L440-ShT Cladosporiumherbarum <0.10 G285-DaX Aspergillusfumigatus <0.10 K103-TeW Mucor racemosus <0.10 G385-StL Alternariaalternata <0.10 C052-FpV Stemphyliumherbarum <0.10 Z522-PuN Maple/[place]ady <0.10 U/jYK649-WlW [place], White <0.10 U/xJX723-FnZ Elm, Armenian <0.10 U/qRL754-AfZ Electra <0.10 U/qQQ561-OtH Merlin, White <0.10 U/cQJ019-ZlN Maple LeafSycamore <0.10 U/gAM817-QoX White [place] <0.10 U/zWE701-PfN Ragweed, Short <0.10 U047-WiM [place] <0.10 W009- IgE Plantain,Ukrainian <0.10 E005-EyA Thistle, Burkinan <0.10 B903-BnZ Pigweed, Common <0.10 S784-IsA Sheep [place] <0.10 F428-IoV Milk <0.10 W341-KvT Wheat <0.10 U/rGB104-ZyM [place] <0.10 U/pOU224-ErS Peanut <0.10 U/bRF394-ZfR Soybean <0.10 U/fZG523-IbY Pork <0.10 U/tCJ509-YyE Beef <0.10 U/fVXE57-YmY Food Mix(Seafoods) Negative O314-BaM Egg, Whole <0.10 U/dHK753-QtV Chocolate/[place] <0.10 07/21/2016 3:26 PM GLUCOSE 104.0 mg/dLSODIUM [...] A1C 5.80 %Est Avg Glucose 119.8 mg/dL History Of Immunizations Name Date Admin Mfg Name Mfg Code Trade Name Lot# Route Inj Vis Given Vis Pub CVX Influenza 07/02/2009 Not Entered NE Not Entered Not Entered Not Entered 10/05/2019 10/05/2019 999 X 04/12/2009 Merck [employer] Co., Inc. MSD PNEUMOVAX 23 Intramus cular Not Entered 10/05/2019 10/05/2019 999 Tdap 07/16/2015 [employer] SKB BOOSTRIX [id number] Intramuscula r Right Deltoid [...] Sanjay cy Group Number Start Date Medicare C Medicare C [id number] N/A [facility] [id number] N/A Medicare Part A Medicare - Lab/Xray [id number] N/A BCBS Bcbs [facility] [id number] July 05, 2013 Medicare Part A Medicare Part A [id number] Friday, July 05, 2013 [facility] [employer] [place] Retriement [id number] N/A Medicare Part B Medicare Of [place] [id number] Friday, July 05, 2013 [place] [employer] [facility] Life Ins [id number] N/A Medicare Part A [id number] P A - Preventive [id number] N/A History of Encounters Visit Date Visit Type Provider 01/03/2018 Office visit Katharinadamaris Murdock APR N 10/08/2017 Office visit Jada Heraclio ROTO GRAVURE PRESS OPERATOR 10/06/2017 Office visit Jada Heraclio ROTO GRAVURE PRESS OPERATOR 10/07/2016 Hospital Jessica Dhaliwal MD 08/12/2016 Office visit Jada Walker ROTO GRAVURE PRESS OPERATOR 08/05/2016 Office visit Jada Walker ROTO GRAVURE PRESS OPERATOR 07/21/2016 Office visit Jada Walker ROTO GRAVURE PRESS OPERATOR 07/10/2016 [facility] Sage Green MD 07/09/2016 Office visit Valorie Rocha [facility] 07/09/2016 [facility] Jessica Dhaliwal MD 05/22/2016 Nurse visit Jada Walker ROTO GRAVURE PRESS OPERATOR 04/13/2016 Office visit Katharina Murdock APR N 04/04/2016 Nurse visit Jada Walker ROTO GRAVURE PRESS OPERATOR 03/26/2016 Office visit Jada Walker ROTO GRAVURE PRESS OPERATOR 02/29/2016 Office visit Jada Walker ROTO GRAVURE PRESS OPERATOR 01/09/2016 Office visit Jada Walker ROTO GRAVURE PRESS OPERATOR 11/14/2015 Office visit Jada Walker ROTO GRAVURE PRESS OPERATOR 07/16/2015 Nurse visit Jada Walker ROTO GRAVURE PRESS OPERATOR 11/30/2014 Office visit Sharon Villanueva 10/18/2014 Office visit Jada Walker ROTO GRAVURE PRESS OPERATOR 08/17/2014 Office visit Jaylene Rebolledo MD 06/28/2014 Office visit Jada Walker ROTO GRAVURE PRESS OPERATOR 06/01/2014 Office visit Sharon Villanueva 04/28/2014 Nurse visit Jada Walker ROTO GRAVURE PRESS OPERATOR 07/20/2013 Office visit Jada Walker ROTO GRAVURE PRESS OPERATOR 07/05/2013 Nurse visit Jada Walker ROTO GRAVURE PRESS OPERATOR 01/10/2013 Office visit Jada Walker ROTO GRAVURE PRESS OPERATOR 12/29/2012 Nurse visit Jada Walker ROTO GRAVURE PRESS OPERATOR 06/16/2012 Office visit Jada Walker ROTO GRAVURE PRESS OPERATOR 05/04/2012 Office visit Jada Walker ROTO GRAVURE PRESS OPERATOR 03/10/2012 Office visit Jada Walker ROTO GRAVURE PRESS OPERATOR 03/04/2012 Office visit Jada Walker ROTO GRAVURE PRESS OPERATOR 01/13/2012 Office visit Ezequiel Mahan MD 01/08/2012 Nurse visit Mikki Carrasco MD 12/16/2011 Voided Ezequiel Mahan MD 11/28/2011 Office visit Ezequiel Mahan MD 10/28/2011 Office visit Jada Pulliam ROTO GRAVURE PRESS OPERATOR 08/14/2011 Office visit Ezequiel Mahan MD [...]
--- OUTSIDE RECORDS SUMMARY | 2019-12-14 18:27 | XMS REPORT ---
Author Shandra Porter Organization [facility] Address [address] [place], [place] [address] Care Team Providers Care Transmission Design Engineer Name Role Phone Jada Pulliam PCP Unavailable Allergies and Adverse Reactions Name Reaction Notes ciprofloxacin migraine codeine sulfate Plan of Treatment Planned Activity Comments Planned Date Planned Time Plan/Goal URINALYSIS AUTO W/O SCOPE 02/29/2016 12:00 AM lumbar pain 12/17/2015 2:00 PM [...] Reviewed 01/08/2012 12:00 AM Depo-Medrol 40 mg [facility]#[id number] Reviewe d 03/12/2012 12:00 AM URINALYSIS AUTO [...] 12:00 AM Decadron, Per 1 Mg [facility]# [address]-03 Re viewed 01/10/2013 12:00 AM Depo-Medrol, Per 80 Mg [facility]#3902-9847-53 Reviewed 07/05/2013 12:00 AM Prolia, 60 Mg Reviewed 07/20/2013 12:00 AM THER/PROPH/DIAG INJ SC/IM Reviewed 07/20/2013 12:00 AM Depo-Medrol, Per 80 Mg [facility]#0774-4329-47 Reviewed 07/20/2013 12:00 AM Decadron, Per 1 Mg [facility]# [address]-45 Re viewed 05/13/2010 12:00 AM COMPREHEN METABOLIC [...] Kenalog 40 Mg [facility]#8280-6559-37 Review ed 12/26/2014 12:00 AM Prolia, 60 [...] Not Entered 10/05/2019 10/05/2019 999 Tdap 07/16/2015 [employer] SKB BOOSTRIX [id number] Intramuscula r Right Deltoid [...] 2016 2:47PM Dysuria Feb 29 2016 9:11AM Payers Insurance Name Company Name Plan Name Plan Number Policy Number Sanjay cy Group Number Start Date Medicare Part A Medicare [facility] [id number] N/A [place] [employer] [facility] hia [place] Life Ins [id number] N/A Medicare Part A Medicare P A - Preventive [id number] N/A BCBS Bcbs [facility] [id number] 2013 Medicare Part A Medicare Part A [id number] Friday, 2013 [facility] [employer] Insurance [place] Retriement [id number] N/A Medicare Part B Medicare Of [place] [id number] Friday, 2013 History of Encounters Visit Date Visit Type Provider 01/09/2016 Office visit Jada Pulliam BERRY GROWER 11/14/2015 Office visit Jada Pulliam BERRY GROWER 07/16/2015 Nurse visit Jada Pulliam BERRY GROWER 11/30/2014 Office visit Sharon Villanueva 10/18/2014 Office visit Jada Pulliam BERRY GROWER 08/17/2014 Office visit Jaylene Rebolledo MD 06/28/2014 Office visit Jada Pulliam BERRY GROWER 06/01/2014 Office visit Sharon Villanueva 04/28/2014 Nurse visit Jada Pulliam BERRY GROWER 07/20/2013 Office visit Jada Pulliam BERRY GROWER 07/05/2013 Nurse visit Jada Pulliam BERRY GROWER 01/10/2013 Office visit Jada Pulliam BERRY GROWER 12/29/2012 Nurse visit Jada Pulliam BERRY GROWER 06/16/2012 Office visit Jada Pulliam BERRY GROWER 05/04/2012 Office visit Jada Pulliam BERRY GROWER 03/10/2012 Office visit Jada Pulliam BERRY GROWER 03/04/2012 Office visit Jada Pulliam BERRY GROWER 01/13/2012 Office visit Ezequiel Mahan MD 01/08/2012 Nurse visit Mikki Carrasco MD 12/16/2011 Voided Ezequiel Mahan MD 11/28/2011 Office visit Ezequiel Mahan MD 10/28/2011 Office visit Jada Pulliam BERRY GROWER 08/14/2011 Office visit Ezequiel Mahan MD 08/07/2011 Nurse visit Ezequiel Mahan MD 06/03/2011 Office visit Jada Pulliam BERRY GROWER 05/07/2011 Office visit Ezequiel Mahan MD 04/28/2011 [...]
--- OUTSIDE RECORDS SUMMARY | 2019-12-14 18:28 | XMS REPORT ---
Author Shandra Lagos Organization [facility] Address [address] [place], [place] [address] Care Team Providers Care Airport Electrician Name Role Phone Katharina Murdock PCP Jada Pulliam PreferredProvider Allergies and Adverse Reactions Name Reaction Notes ciprofloxacin migraine codeine sulfate Plan of Treatment Planned Activity Comments Planned Date Planned Time Plan/Goal Urine Culture, [place] Count 03/04/2016 12:00 AM lumbar pain 12/17/2015 [...] Reviewed 02/29/2016 12:00 AM Rocephin [address] [facility]#2051-1527-86 Reviewe d 03/27/2016 12:00 AM INJECT SPINE LUMBAR/SACRAL Reviewed 03/27/2016 12:00 AM URNLS DIP STICK/TABLET RGNT AUTO W/O KATHRIN ROSCOPY Reviewed 03/26/2016 12:00 AM Benadryl, Up to [address] [facility]# 2437-6673-38 Reviewed 04/04/2016 12:00 AM IMMUNOTHERAPY ONE INJECTION Reviewed 10/29/2011 12:00 AM URINALYSIS AUTO W/O SCOPE Reviewed 10/28/2011 12:00 AM COMPLETE CBC W/AUTO DIFF WBC Reviewed 10/28/2011 12:00 AM COMPREHEN METABOLIC PANEL Reviewed 10/28/2011 12:00 AM URINE CULTURE/COLONY COUNT Reviewed 05/22/2016 12:00 AM ALLERGEN SPECIFIC IGE Reviewed 05/22/2016 12:00 AM Decadron, Per [address] [facility]# [address]-60 Re viewed 05/22/2016 12:00 AM Depo-Medrol 40mg [...] Depo-Medrol [address] [facility]#[id number] Reviewe d 09/08/2016 12:00 AM METABOLIC PANEL TOTAL CA Reviewed 09/08/2016 12:00 AM COMPLETE CBC W/AUTO DIFF WBC Reviewed 09/08/2016 12:00 AM RADIOLOGIC EXAM CHEST 2 VIEWS FRONTAL&LA TERAL Reviewed 04/13/2016 12:00 AM Depo-Medrol, Per [address] [facility]#[address]-85 Reviewed 04/13/2016 12:00 AM Decadron, Per [address] [facility]# [address]-94 Re viewed 04/13/2016 12:00 AM THER/PROPH/DIAG INJ [...] Per [address] [facility]# [address]-61 Re viewed 01/10/2013 12:00 AM Depo-Medrol, Per [address] [facility]#4938-9455-32 Reviewed 07/05/2013 12:00 AM Prolia, 60 Mg Reviewed 07/20/2013 12:00 AM THER/PROPH/DIAG INJ SC/IM Reviewed 07/20/2013 12:00 AM Depo-Medrol, Per [address] [facility]#8467-7214-14 Reviewed 07/20/2013 12:00 AM Decadron, Per [address] [facility]# [address]-47 Re viewed 05/13/2010 12:00 AM COMPREHEN METABOLIC [...] Kenalog 40 Mg [facility]#6825-1402-45 Review ed 12/26/2014 12:00 AM Prolia, 60 [...] CULT SET UP? YES 05/22/2016 3:30 PM F227-GzV D pteronyssinus <0. 10 U/eVZ441-JsE D farinae <0.10 U/gOB439-RpB Cat Dander <0.10 V720-NgI Dog Dander <0.10 U/mIX222-BhZ Bermuda Grass <0.10 U/eHY875-JgX [place], [place] <0.10 U/nYN611-WcT [place] Grass <0.10 U/cXY115-QiY Cockroach,Belarusian <0.10 Y112-TjV Penicilliumchrysogen <0.10 B454-AnU Cladosporiumherbarum <0.10 J108-CvH Aspergillusfumigatus <0.10 K815-CmH Mucor racemosus <0.10 O919-AjV Alternariaalternata <0.10 O580-MuG Stemphyliumherbarum <0.10 P140-AjZ Maple/[place] <0.10 U/jZX419-QsN [place], White <0.10 U/kGT248-UpA Elm, Belarusian <0.10 U/uNI360-BtK [place] <0.10 U/oQI613-PiN Merlin, White <0.10 U/hXH719-UfZ Maple LeafSycamore <0.10 U/pWK679-IhJ White [place] <0.10 U/wMX038-TlM Ragweed, Short <0.10 S861-SpS [place] <0.10 W009- IgE Plantain,Portuguese <0.10 L944-SkD Thistle, Tuvaluan <0.10 U641-WkJ Pigweed, Common <0.10 E350-KcD Sheep [place] <0.10 X088-LbU Milk <0.10 V467-LxH Wheat <0.10 U/gGS450-RmW [place] <0.10 U/yHO072-LhV Peanut <0.10 U/wMU183-QbG Soybean <0.10 U/aQK855-VrF Pork <0.10 U/iDL205-KsR Beef <0.10 U/cQPQ20-PjL Food Mix(Seafoods) Negative Q105-QfR Egg, Whole <0.10 U/fMX680-YbQ Chocolate/Mccoll <0.10 07/21/2016 3:26 PM GLUCOSE 104.0 mg/dLSODIUM [...] Not Entered 10/05/2019 10/05/2019 999 Tdap 07/16/2015 [employer] SKB BOOSTRIX H9P57 Intramuscula r Right Deltoid [...] Group Number Start Date Medicare RHC Medicare C [id number] N/A [facility] [id number] N/A Medicare Part A Medicare - Lab/Xray [id number] N/A BCBS Bcbs [facility] [id number] July 05, 2013 Medicare Part A Medicare Part A [id number] Friday, July 05, 2013 [facility] [employer] [place] Retriement [id number] N/A Medicare Part B Medicare Of [place] [id number] Friday, July 05, 2013 [employer] [facility] [id number] N/A Medicare Part A ZZZMedicare P A - Preventive [id number] N/A History of Encounters Visit Date Visit Type Provider 01/03/2018 Office visit Katharina Murdock APR N 10/08/2017 Office visit Jada Heraclio MANAGER CULINARY 10/06/2017 Office visit Jada Heraclio MANAGER CULINARY 10/07/2016 Hospital Jessica Dhaliwal MD 08/12/2016 Office visit Jada Walker MANAGER CULINARY 08/05/2016 Office visit Jada Walker MANAGER CULINARY 07/21/2016 Office visit Jada Walker MANAGER CULINARY 07/10/2016 [facility] Sage Green MD 07/09/2016 Office visit Valorie Rocha [facility] 07/09/2016 [facility] Jessica Dhaliwal MD 05/22/2016 Nurse visit Jada Walker MANAGER CULINARY 04/13/2016 Office visit Katharina Murdock APR N 04/04/2016 Nurse visit Jada Walker MANAGER CULINARY 03/26/2016 Office visit Jada Walker MANAGER CULINARY 02/29/2016 Office visit Jada Walker MANAGER CULINARY 01/09/2016 Office visit Jada Walker MANAGER CULINARY 11/14/2015 Office visit Jada Walker MANAGER CULINARY 07/16/2015 Nurse visit Jada Walker MANAGER CULINARY 11/30/2014 Office visit Sharon Villanueva 10/18/2014 Office visit Jada Walker MANAGER CULINARY 08/17/2014 Office visit Jaylene Rebolledo MD 06/28/2014 Office visit Jada Walker MANAGER CULINARY 06/01/2014 Office visit Sharon Villanueva 04/28/2014 Nurse visit Jada Walker MANAGER CULINARY 07/20/2013 Office visit Jada Walker MANAGER CULINARY 07/05/2013 Nurse visit Jada Walker MANAGER CULINARY 01/10/2013 Office visit Jada Walker MANAGER CULINARY 12/29/2012 Nurse visit Jada Walker MANAGER CULINARY 06/16/2012 Office visit Jada Walker MANAGER CULINARY 05/04/2012 Office visit Jada Walker MANAGER CULINARY 03/10/2012 Office visit Jada Walker MANAGER CULINARY 03/04/2012 Office visit Jada Pulliam MANAGER CULINARY 01/13/2012 Office visit Ezequiel Mahan MD 01/08/2012 Nurse visit Mikki Carrasco MD 12/16/2011 Voided Ezequiel Mahan MD 11/28/2011 Office visit Ezequiel Mahan MD 10/28/2011 Office visit Jada Pulliam MANAGER CULINARY 08/14/2011 Office visit Ezequiel Mahan MD 08/07/2011 [...]
--- OUTSIDE RECORDS SUMMARY | 2019-12-14 18:29 | XMS REPORT ---
Author Shandra Porter Organization [facility] Address [address] [place], [place] [address] Care Team Providers Care Obstetrics Scrub Nurse Name Role Phone Jada Pulliam PCP Unavailable [...] 12:00 AM Depo-Medrol 40 mg [facility]#[id number] Reviewe d 03/12/2012 12:00 AM URINALYSIS AUTO [...] Decadron, Per 1 Mg [facility]# [address]-70 Re viewed 01/10/2013 12:00 AM Depo-Medrol, Per 80 Mg [facility]#3481-4493-34 Reviewed 07/05/2013 12:00 AM Prolia, 60 Mg Reviewed 07/20/2013 12:00 AM THER/PROPH/DIAG INJ SC/IM Reviewed 07/20/2013 12:00 AM Depo-Medrol, Per 80 Mg [place]#6085-7102-70 Reviewed 07/20/2013 12:00 AM Decadron, Per 1 Mg [facility]# [address]-92 Re viewed 05/13/2010 12:00 AM COMPREHEN METABOLIC [...] 12:00 AM Kenalog 40 Mg [facility]#4156-0749-76 Review ed 12/26/2014 12:00 AM Prolia, 60 [...] Not Entered 10/05/2019 10/05/2019 999 Tdap 07/16/2015 [employer] SKB BOOSTRIX H9P57 Intramuscula r Right Deltoid [...] Date Medicare Part A Medicare Part A [id number] Friday, 2013 [employer] [place] [employer] [id number] N/A Medicare Part A Medicare P A - Preventive [id number] N/A [employer] [place] Retriement [id number] N/A Medicare Part B Medicare Of [place] [id number] Friday, 2013 [facility] [id number] 2013 History of Encounters Visit Date Visit Type Provider 11/14/2015 Office visit Jada Pulliam GYM SUPERVISOR 07/16/2015 Nurse visit Jada Pulliam GYM SUPERVISOR 11/30/2014 Office visit Sharon Villanueva 10/18/2014 Office visit Jada Pulliam GYM SUPERVISOR 08/17/2014 Office visit Jaylene Rebolledo MD 06/28/2014 Office visit Jada Pulliam GYM SUPERVISOR 06/01/2014 Office visit Sharon Villanueva 04/28/2014 Nurse visit Jada Pulliam GYM SUPERVISOR 07/20/2013 Office visit Jada Pulliam GYM SUPERVISOR 07/05/2013 Nurse visit Jada Pulliam GYM SUPERVISOR 01/10/2013 Office visit Jada Pulliam GYM SUPERVISOR 12/29/2012 Nurse visit Jada Pulliam GYM SUPERVISOR 06/16/2012 Office visit Jada Pulliam GYM SUPERVISOR 05/04/2012 Office visit Jada Pulliam GYM SUPERVISOR 03/10/2012 Office visit Jada Pulliam GYM SUPERVISOR 03/04/2012 Office visit Jada Pulliam GYM SUPERVISOR 01/13/2012 Office visit Ezequiel Mahan MD 01/08/2012 Nurse visit Mikki Carrasco MD 12/16/2011 Voided Ezequiel Mahan MD 11/28/2011 Office visit Ezequiel Mahan MD 10/28/2011 Office visit Jada Pulliam GYM SUPERVISOR 08/14/2011 Office visit Ezequiel Mahan MD 08/07/2011 Nurse visit Ezequiel Mahan MD 06/03/2011 Office visit Jada Pulliam GYM SUPERVISOR 05/07/2011 Office visit Ezequiel Mahan MD 04/28/2011 [...]
--- OUTSIDE RECORDS SUMMARY | 2019-12-14 18:29 | XMS REPORT ---
Author Shandra Porter Organization [facility] Address [address] [place], [place] [address] Care Team Providers Care Transitional Kindergarten Teacher Name Role Phone Jada Pulliam PCP Unavailable [...] Returned 02/29/2016 12:00 AM Rocephin 1 gram [facility]#7318-9673-85 Reviewe d 10/29/2011 12:00 AM URINALYSIS AUTO W/O SCOPE Reviewed 10/28/2011 12:00 AM COMPLETE CBC W/AUTO DIFF WBC Returned 10/28/2011 12:00 AM COMPREHEN METABOLIC PANEL Returned 10/28/2011 12:00 AM URINE CULTURE/COLONY COUNT Returned 01/08/2012 12:00 AM THER/PROPH/DIAG INJ SC/IM Reviewed 01/08/2012 12:00 AM Depo-Medrol 40 mg [facility]#[id number] Reviewe d 03/12/2012 12:00 AM URINALYSIS AUTO [...] 01/10/2013 12:00 AM Decadron, Per 1 Mg [facility]# [address]-70 Re viewed 01/10/2013 12:00 AM Depo-Medrol, Per 80 Mg [facility]#9856-0342-52 Reviewed 07/05/2013 12:00 AM Prolia, 60 Mg Reviewed 07/20/2013 12:00 AM THER/PROPH/DIAG INJ SC/IM Reviewed 07/20/2013 12:00 AM Depo-Medrol, Per 80 Mg [facility]#6901-5679-93 Reviewed 07/20/2013 12:00 AM Decadron, Per 1 Mg [facility]# [address]-70 Re viewed 05/13/2010 12:00 AM COMPREHEN METABOLIC [...] AM Kenalog 40 Mg [facility]#0770-3023-81 Review ed 12/26/2014 12:00 AM Prolia, 60 [...] Not Entered 10/05/2019 10/05/2019 999 Tdap 07/16/2015 [employer] SKB BOOSTRIX H9P57 Intramuscula r Right Deltoid [...] Number Start Date Medicare Part A Medicare [facility] [id number] N/A [employer] [facility] hia [employer] Ins [id number] N/A Medicare Part A Medicare P A - Preventive [id number] N/A Medicare Part A Medicare - Lab/Xray [id number] N/A BCBS [facility] [id number] July 05, 2013 Medicare Part A Medicare Part A [id number] Friday, July 05, 2013 [employer] [place] Retriement [id number] N/A Medicare Part B Medicare Of [place] [id number] Friday, July 05, 2013 History of Encounters Visit Date Visit Type Provider 02/29/2016 Office visit Jada Pulliam APRN 01/09/2016 Office visit Jada Pulliam NON FOOD RECEIVING CLERK 11/14/2015 Office visit Jada Pulliam NON FOOD RECEIVING CLERK 07/16/2015 Nurse visit Jada Pulliam NON FOOD RECEIVING CLERK 11/30/2014 Office visit Sharon Villanueva 10/18/2014 Office visit Jada Pulliam NON FOOD RECEIVING CLERK 08/17/2014 Office visit Jaylene Rebolledo MD 06/28/2014 Office visit Jada Pulliam NON FOOD RECEIVING CLERK 06/01/2014 Office visit Sharon Villanueva 04/28/2014 Nurse visit Jada Pulliam NON FOOD RECEIVING CLERK 07/20/2013 Office visit Jada Pulliam NON FOOD RECEIVING CLERK 07/05/2013 Nurse visit Jada Pulliam NON FOOD RECEIVING CLERK 01/10/2013 Office visit Jada Pulliam NON FOOD RECEIVING CLERK 12/29/2012 Nurse visit Jada Pulliam NON FOOD RECEIVING CLERK 06/16/2012 Office visit Jada Pulliam NON FOOD RECEIVING CLERK 05/04/2012 Office visit Jada Pulliam NON FOOD RECEIVING CLERK 03/10/2012 Office visit Jada Pulliam NON FOOD RECEIVING CLERK 03/04/2012 Office visit Jada Pulliam NON FOOD RECEIVING CLERK 01/13/2012 Office visit Ezequiel Mahan MD 01/08/2012 Nurse visit Mikki Carrasco MD 12/16/2011 Voided Ezequiel Mahan MD 11/28/2011 Office visit Ezequiel Mahan MD 10/28/2011 Office visit Jada Pulliam NON FOOD RECEIVING CLERK 08/14/2011 Office visit Ezequiel Mahan MD 08/07/2011 Nurse visit Ezequiel Mahan MD 06/03/2011 Office visit Jada Pulliam NON FOOD RECEIVING CLERK 05/07/2011 Office visit Ezequiel Mahan MD 04/28/2011 [...]
--- OUTSIDE RECORDS SUMMARY | 2019-12-14 18:30 | XMS REPORT ---
Author Shandra Porter Organization [facility] Address [address] [place], [place] [address] Care Team Providers Care Box Attacher Name Role Phone Jada Pulliam PCP Unavailable [...] Returned 02/29/2016 12:00 AM Rocephin 1 gram [facility]#6927-3249-23 Reviewe d 03/27/2016 12:00 AM URNLS DIP STICK/TABLET RGNT AUTO W/O KATHRIN ROSCOPY Returned 03/26/2016 12:00 AM Benadryl, Up to 50 Mg [facility]# 7452-6144-90 Reviewed 04/04/2016 12:00 AM IMMUNOTHERAPY ONE INJECTION Reviewed 04/13/2016 12:00 AM Depo-Medrol, Per 80 Mg [facility]#[address]-57 Reviewed 04/13/2016 12:00 AM Decadron, Per 1 Mg [facility]# [address]-72 Re viewed 04/13/2016 12:00 AM THER/PROPH/DIAG INJ SC/IM Reviewed 10/29/2011 12:00 AM URINALYSIS AUTO W/O SCOPE Reviewed 10/28/2011 12:00 AM COMPLETE CBC W/AUTO DIFF WBC Returned 10/28/2011 12:00 AM COMPREHEN METABOLIC PANEL Returned 10/28/2011 12:00 AM URINE CULTURE/COLONY COUNT Returned 05/22/2016 12:00 AM ALLERGEN SPECIFIC IGE Returned 05/22/2016 12:00 AM Decadron, Per 1 Mg [facility]# [address]-34 Re viewed 05/22/2016 12:00 AM Depo-Medrol 40mg Reviewed 05/22/2016 12:00 AM THER/PROPH/DIAG INJ SC/IM Reviewed 07/21/2016 12:00 AM METABOLIC PANEL TOTAL CA Returned 07/21/2016 12:00 AM COMPLETE CBC W/AUTO DIFF WBC Returned 01/08/2012 12:00 AM THER/PROPH/DIAG INJ SC/IM Reviewed 01/08/2012 12:00 AM Depo-Medrol 40 mg [facility]#[id number] Reviewe d 03/12/2012 12:00 AM URINALYSIS AUTO [...] [facility]# [address]-28 Re viewed 01/10/2013 12:00 AM Depo-Medrol, Per 80 Mg [facility]#7337-1729-53 Reviewed 07/05/2013 12:00 AM Prolia, 60 Mg Reviewed 07/20/2013 12:00 AM THER/PROPH/DIAG INJ SC/IM Reviewed 07/20/2013 12:00 AM Depo-Medrol, Per 80 Mg [facility]#8800-2447-04 Reviewed 07/20/2013 12:00 AM Decadron, Per 1 Mg [facility]# [address]-25 Re viewed 05/13/2010 12:00 AM COMPREHEN METABOLIC [...] AM Kenalog 40 Mg [facility]#4206-5889-70 Review ed 12/26/2014 12:00 AM Prolia, 60 [...] /HPFTRICHOMONAS NEGATIVE YEAST NEGATIVE 05/22/2016 3:30 PM O576-FmZ D pteronyssinus <0. 10 U/eLV103-HhW D farinae <0.10 U/jGG002-CzB Cat Dander <0.10 R080-IxJ Dog Dander <0.10 U/bMZ203-GlH Bermuda Grass <0.10 U/qBD067-TlI Bluegrass,[place] <0.10 U/wAV175-XcT [place] Grass <0.10 U/iEY745-GmL Maple/[place] <0.10 U/qPX765-XdH [place], White <0.10 U/lBG806- IgE Elm, Irish <0.10 U/oKD921-BtT [place]arcreek <0.10 U/pBU368-HcF Merlin, White <0.10 U/yNY045-OeB Maple LeafSycamore <0.10 U/jZS418-UxU White [place] <0.10 U/zSJ813-MnH Milk <0.10 T274-CxJ Wheat <0.10 U/cUS987-HkQ [place] <0.10 U/tFU076- IgE Peanut <0.10 U/zLV096-QqM Soybean <0.10 U/kCC427-OdP Pork <0.10 U/yVI843-YxX Beef <0.10 U/nHIO69-HhP Food Mix(Seafoods) Negative J044-ExK Egg, Whole <0.10 U/xNV255-DnN Chocolate/Tarina <0.10 07/21/2016 3:26 PM GLUCOSE 104.0 mg/dLSODIUM [...] Not Entered 10/05/2019 10/05/2019 999 Tdap 07/16/2015 [employer] SKB BOOSTRIX H9P57 Intramuscula r Right Deltoid [...] Start Date Medicare Part A Medicare RHC [id number] N/A [place] [employer] [facility] [employer] Ins [id number] N/A Medicare Part A ZZZMedicare P A - Preventive [id number] N/A Medicare Part A Medicare - Lab/Xray [id number] N/A BCBS Bcbs [facility] [id number] July 05, 2013 Medicare Part A Medicare Part A [id number] Friday, July 05, 2013 [employer] Irish Retriement [id number] N/A Medicare Part B Medicare Of [place] [id number] Friday, July 05, 2013 History of Encounters Visit Date Visit Type Provider 07/21/2016 Office visit Jada Pulliam APRN 07/10/2016 [facility] Sage Green MD 07/09/2016 Office visit Valorie MCCLURE 05/22/2016 Nurse visit Jada Pulliam EMPLOYEE RELATIONS SPECIALIST 04/13/2016 Office visit Katharina Murdock APR N 04/04/2016 Nurse visit Jada Pulliam EMPLOYEE RELATIONS SPECIALIST 03/26/2016 Office visit Jada Pulliam EMPLOYEE RELATIONS SPECIALIST 02/29/2016 Office visit Jada Pulliam EMPLOYEE RELATIONS SPECIALIST 01/09/2016 Office visit Jada Pulliam EMPLOYEE RELATIONS SPECIALIST 11/14/2015 Office visit Jada Pulliam APRN 07/16/2015 Nurse visit Jada Pulliam APRN 11/30/2014 Office visit Sharon Villanueva 10/18/2014 Office visit Jada Pulliam APRN 08/17/2014 Office visit Jaylene Rebolledo MD 06/28/2014 Office visit Jada Pulliam APRN 06/01/2014 Office visit Sharon Villanueva 04/28/2014 Nurse visit Jada Pulliam APRN 07/20/2013 Office visit Jada Pulliam EMPLOYEE RELATIONS SPECIALIST 07/05/2013 Nurse visit Jada Pulliam EMPLOYEE RELATIONS SPECIALIST 01/10/2013 Office visit Jada Pulliam EMPLOYEE RELATIONS SPECIALIST 12/29/2012 Nurse visit Jada Pulliam EMPLOYEE RELATIONS SPECIALIST 06/16/2012 Office visit Jada Pulliam EMPLOYEE RELATIONS SPECIALIST 05/04/2012 Office visit Jada Pulliam EMPLOYEE RELATIONS SPECIALIST 03/10/2012 Office visit Jada Pulliam EMPLOYEE RELATIONS SPECIALIST 03/04/2012 Office visit Jada Pulliam EMPLOYEE RELATIONS SPECIALIST 01/13/2012 Office visit Ezequiel Mahan MD 01/08/2012 Nurse visit Mikki Carrasco MD 12/16/2011 Voided Ezequiel Mahan MD 11/28/2011 Office visit Ezequiel Mahan MD 10/28/2011 Office visit Jada Pulliam EMPLOYEE RELATIONS SPECIALIST 08/14/2011 Office visit Ezequiel Mahan MD 08/07/2011 Nurse visit Ezequiel Mahan MD 06/03/2011 Office visit Jada Heraclio EMPLOYEE RELATIONS SPECIALIST 05/07/2011 Office visit Ezequiel Mahan MD 04/28/2011 [...]
--- OUTSIDE RECORDS SUMMARY | 2019-12-14 18:30 | XMS REPORT ---
Author Shandra Porter Organization [facility] Address [address] [place], [place] [address] Care Team Providers Care Director Check Name Role Phone Jada Pulliam PCP Unavailable [...] 02/29/2016 12:00 AM Rocephin 1 gram [facility]#5808-6769-57 Reviewe d 03/27/2016 12:00 AM URNLS DIP STICK/TABLET RGNT AUTO W/O KATHRIN ROSCOPY Returned 03/26/2016 12:00 AM Benadryl, Up to 50 Mg [facility]# 4213-6115-12 Reviewed 04/04/2016 12:00 AM IMMUNOTHERAPY ONE INJECTION Reviewed 04/13/2016 12:00 AM Depo-Medrol, Per 80 Mg [facility]#[address]-84 Reviewed 04/13/2016 12:00 AM Decadron, Per 1 Mg [facility]# [address]-82 Re viewed 04/13/2016 12:00 AM THER/PROPH/DIAG INJ SC/IM Reviewed 10/29/2011 12:00 AM URINALYSIS AUTO W/O SCOPE Reviewed 10/28/2011 12:00 AM COMPLETE CBC W/AUTO DIFF WBC Returned 10/28/2011 12:00 AM COMPREHEN METABOLIC PANEL Returned 10/28/2011 12:00 AM URINE CULTURE/COLONY COUNT Returned 05/22/2016 12:00 AM ALLERGEN SPECIFIC IGE Returned 05/22/2016 12:00 AM Decadron, Per 1 Mg [facility]# [address]-58 Re viewed 05/22/2016 12:00 AM Depo-Medrol 40mg Reviewed 05/22/2016 12:00 AM THER/PROPH/DIAG INJ SC/IM Reviewed 01/08/2012 12:00 AM THER/PROPH/DIAG INJ SC/IM Reviewed 01/08/2012 12:00 AM Depo-Medrol 40 mg [facility]#[id number] Reviewe d 03/12/2012 12:00 AM URINALYSIS AUTO [...] 12:00 AM Decadron, Per 1 Mg [facility]# [address]-75 Re viewed 01/10/2013 12:00 AM Depo-Medrol, Per 80 Mg [facility]#6310-7729-88 Reviewed 07/05/2013 12:00 AM Prolia, 60 Mg Reviewed 07/20/2013 12:00 AM THER/PROPH/DIAG INJ SC/IM Reviewed 07/20/2013 12:00 AM Depo-Medrol, Per 80 Mg [facility]#3079-5081-88 Reviewed 07/20/2013 12:00 AM Decadron, Per 1 Mg [facility]# [address]-58 Re viewed 05/13/2010 12:00 AM COMPREHEN METABOLIC [...] 10/24/2009 12:00 AM Kenalog 40 Mg [facility]#0822-7184-49 Review ed 12/26/2014 12:00 AM Prolia, 60 [...] /HPFTRICHOMONAS NEGATIVE YEAST NEGATIVE 05/22/2016 3:30 PM U224-AdY D pteronyssinus <0. 10 U/sFZ651-AqR D farinae <0.10 U/aOX049-YwE Cat Dander <0.10 G104-YtF Dog Dander <0.10 U/pZL291-UcA [place] Grass <0.10 U/lKF343-LtZ [place] treatment centery <0.10 U/mBB464-HyF [place] Grass <0.10 U/bAM406-ElL Maple/[place] <0.10 U/zHH738-GsF [place], White <0.10 U/oIB123- IgE Elm, [place] <0.10 U/uAG186-JsS [place] <0.10 U/wRO020-JtP Merlin, White <0.10 U/tFQ568-BfV Maple LeafSycamore <0.10 U/bYA453-FbE [place] <0.10 U/fZW880-BjR Milk <0.10 O961-JsY Wheat <0.10 U/wTN265-AmS [place] <0.10 U/vRH866- IgE Peanut <0.10 U/iVS043-XeO Soybean <0.10 U/cFM411-ZcU Pork <0.10 U/pVZ050-BjI Beef <0.10 U/gHTU68-IfG Food Mix(Seafoods) Negative M968-ViI Egg, Whole <0.10 U/aFA407-HbL Chocolate/[place] <0.10 History Of Immunizations Name Date Admin [...] Number Start Date Medicare Part A Medicare [facility] [id number] N/A [place] Insurance [facility] [place] Life Ins [id number] N/A Medicare Part A ZZZMedicare P A - Preventive [id number] N/A Medicare Part A Medicare - Lab/Xray [id number] N/A BCBS [facility] [id number] July 05, 2013 Medicare Part A Medicare Part A [id number] Friday, July 05, 2013 Q[place] Insurance [place] Retriement [id number] N/A Medicare Part B Medicare Of [place] [id number] Friday, July 05, 2013 History of Encounters Visit Date Visit Type Provider 05/22/2016 Nurse visit Jdaa Pulliam TECHNOLOGY AND ENGINEERING TEACHER 04/13/2016 Office visit Katharina Murdock APR N 04/04/2016 Nurse visit Jada Pulliam TECHNOLOGY AND ENGINEERING TEACHER 03/26/2016 Office visit Jada Pulliam TECHNOLOGY AND ENGINEERING TEACHER 02/29/2016 Office visit Jada Pulliam TECHNOLOGY AND ENGINEERING TEACHER 01/09/2016 Office visit Jada Pulliam TECHNOLOGY AND ENGINEERING TEACHER 11/14/2015 Office visit Jada Pulliam TECHNOLOGY AND ENGINEERING TEACHER 07/16/2015 Nurse visit Jada Pulliam TECHNOLOGY AND ENGINEERING TEACHER 11/30/2014 Office visit Sharon Villanueva 10/18/2014 Office visit Jada Pulliam TECHNOLOGY AND ENGINEERING TEACHER 08/17/2014 Office visit Jaylene Rebolledo MD 06/28/2014 Office visit Jada Pulliam TECHNOLOGY AND ENGINEERING TEACHER 06/01/2014 Office visit Sharon Villanueva 04/28/2014 Nurse visit Jada Pulliam TECHNOLOGY AND ENGINEERING TEACHER 07/20/2013 Office visit Jada Pulliam TECHNOLOGY AND ENGINEERING TEACHER 07/05/2013 Nurse visit Jada Pluliam TECHNOLOGY AND ENGINEERING TEACHER 01/10/2013 Office visit Jada Pulliam TECHNOLOGY AND ENGINEERING TEACHER 12/29/2012 Nurse visit Jada Pulliam TECHNOLOGY AND ENGINEERING TEACHER 06/16/2012 Office visit Jada Pulliam TECHNOLOGY AND ENGINEERING TEACHER 05/04/2012 Office visit Jada Pulliam TECHNOLOGY AND ENGINEERING TEACHER 03/10/2012 Office visit Jada Pulliam TECHNOLOGY AND ENGINEERING TEACHER 03/04/2012 Office visit Jada Pulliam TECHNOLOGY AND ENGINEERING TEACHER 01/13/2012 Office visit Ezequiel Mahan MD 01/08/2012 Nurse visit Mikki Carrasco MD 12/16/2011 Voided Ezequiel Mahan MD 11/28/2011 Office visit Ezequiel Mahan MD 10/28/2011 Office visit Jada Pulliam TECHNOLOGY AND ENGINEERING TEACHER 08/14/2011 Office visit Ezequiel Mahan MD 08/07/2011 Nurse visit Ezequiel Mahan MD 06/03/2011 Office visit Jada Pulliam TECHNOLOGY AND ENGINEERING TEACHER 05/07/2011 Office visit Ezequiel Mahan MD [...]
--- OUTSIDE RECORDS SUMMARY | 2019-12-14 18:31 | XMS REPORT ---
Author Shandra Porter Organization [facility] Address [address] [place], [place] [address] Care Team Providers Care Welfare Adviser Name Role Phone Jada Pulliam PCP Unavailable [...] Returned 02/29/2016 12:00 AM Rocephin 1 gram [facility]#1529-8197-76 Reviewe d 03/27/2016 12:00 AM URNLS DIP STICK/TABLET RGNT AUTO W/O KATHRIN ROSCOPY Returned 03/26/2016 12:00 AM Benadryl, Up to 50 Mg [facility]# 4929-8793-09 Reviewed 04/04/2016 12:00 AM IMMUNOTHERAPY ONE INJECTION Reviewed 04/13/2016 12:00 AM Depo-Medrol, Per 80 Mg [facility]#[address]-61 Reviewed 04/13/2016 12:00 AM Decadron, Per 1 Mg [facility]# [address]-66 Re viewed 04/13/2016 12:00 AM THER/PROPH/DIAG INJ SC/IM Reviewed 10/29/2011 12:00 AM URINALYSIS AUTO W/O SCOPE Reviewed 10/28/2011 12:00 AM COMPLETE CBC W/AUTO DIFF WBC Returned 10/28/2011 12:00 AM COMPREHEN METABOLIC PANEL Returned 10/28/2011 12:00 AM URINE CULTURE/COLONY COUNT Returned 05/22/2016 12:00 AM ALLERGEN SPECIFIC IGE Returned 05/22/2016 12:00 AM Decadron, Per 1 Mg [facility]# [address]-24 Re viewed 05/22/2016 12:00 AM Depo-Medrol 40mg Reviewed 05/22/2016 12:00 AM THER/PROPH/DIAG INJ SC/IM Reviewed 07/21/2016 12:00 AM METABOLIC PANEL TOTAL CA Returned 07/21/2016 12:00 AM COMPLETE CBC W/AUTO DIFF WBC Returned 01/08/2012 12:00 AM THER/PROPH/DIAG INJ SC/IM Reviewed 01/08/2012 12:00 AM Depo-Medrol 40 mg [facility]#[id number] Reviewe d 03/12/2012 12:00 AM URINALYSIS AUTO [...] 01/10/2013 12:00 AM Decadron, Per 1 Mg [facility]# [address]-36 Re viewed 01/10/2013 12:00 AM Depo-Medrol, Per 80 Mg [facility]#1428-9358-45 Reviewed 07/05/2013 12:00 AM Prolia, 60 Mg Reviewed 07/20/2013 12:00 AM THER/PROPH/DIAG INJ SC/IM Reviewed 07/20/2013 12:00 AM Depo-Medrol, Per 80 Mg [facility]#1388-2153-16 Reviewed 07/20/2013 12:00 AM Decadron, Per 1 Mg [facility]# [address]-43 Re viewed 05/13/2010 12:00 AM COMPREHEN METABOLIC [...] Kenalog 40 Mg [facility]#9514-3461-53 Review ed 12/26/2014 12:00 AM Prolia, 60 [...] /HPFTRICHOMONAS NEGATIVE YEAST NEGATIVE 05/22/2016 3:30 PM C204-PmF D pteronyssinus <0. 10 U/cXQ975-SwJ D farinae <0.10 U/mDC009-QgU Cat Dander <0.10 J691-HtZ Dog Dander <0.10 U/dFO027-XyM [place] Grass <0.10 U/zJK556-RtF Bluegrass,[place] <0.10 U/wSP052-KjG [place] Grass <0.10 U/eKN809-PwA Maple/[place] <0.10 U/nSM598-RfJ [place], White <0.10 U/zAD540- IgE Elm, [place] Citizen <0.10 U/bPL675-JwN [place] <0.10 U/cGC184-BcQ Merlin, White <0.10 U/sMT491-YgD Maple LeafSycamore <0.10 U/aHL050-ZgS [place] <0.10 U/dUR428-JbE Milk <0.10 X194-QkT Wheat <0.10 U/pHO513-YjQ [place] <0.10 U/kSL635- IgE Peanut <0.10 U/aWO227-SrG Soybean <0.10 U/tIU126-EyX Pork <0.10 U/jIH757-FrC Beef <0.10 U/gTJJ63-QeO Food Mix(Seafoods) Negative R815-BfB Egg, Whole <0.10 U/dGL469-NsW Chocolate/[place] <0.10 07/21/2016 3:26 PM GLUCOSE 104.0 mg/dLSODIUM [...] Not Entered 10/05/2019 10/05/2019 999 Tdap 07/16/2015 [employer]ax[employer] SKB BOOSTRIX H9P57 Intramuscula r Right Deltoid [...] Start Date Medicare Part A Medicare RHC [id number] N/A Nunda YesPlz! [facility] My Own Med Ins [id number] N/A Medicare Part A ZZZMedicare P A - Preventive [id number] N/A Medicare Part A Medicare - Lab/Xray [id number] N/A BCBS Bcbs [facility] [id number] July 05, 2013 Medicare Part A Medicare Part A [id number] Friday, July 05, 2013 Revinate Al [place] Citizen Retriement [id number] N/A Medicare Part B Medicare Of [place] [id number] Friday, July 05, 2013 History of Encounters Visit Date Visit Type Provider 07/21/2016 Office visit Jada Pulliam APRN 07/10/2016 [facility] Sage Green MD 07/09/2016 Office visit Valorie MCCLURE 05/22/2016 Nurse visit Jada Pulliam WELLNESS COORDINATOR 04/13/2016 Office visit Katharina Murdock APR N 04/04/2016 Nurse visit Jada Pulliam WELLNESS COORDINATOR 03/26/2016 Office visit Jada Pulliam WELLNESS COORDINATOR 02/29/2016 Office visit Jada Pulliam WELLNESS COORDINATOR 01/09/2016 Office visit Jada Pulliam WELLNESS COORDINATOR 11/14/2015 Office visit Jada Pulliam APRN 07/16/2015 Nurse visit Jada Pulliam APRN 11/30/2014 Office visit Sharon Villanueva 10/18/2014 Office visit Jada Pulliam APRN 08/17/2014 Office visit Jaylene Rebolledo MD 06/28/2014 Office visit Jada Pulliam APRN 06/01/2014 Office visit Sharon Villanueva 04/28/2014 Nurse visit Jada Pulliam APRN 07/20/2013 Office visit Jada Pulliam WELLNESS COORDINATOR 07/05/2013 Nurse visit Jada Pulliam WELLNESS COORDINATOR 01/10/2013 Office visit Jada Pulliam WELLNESS COORDINATOR 12/29/2012 Nurse visit Jada Pulliam WELLNESS COORDINATOR 06/16/2012 Office visit Jada Pulliam WELLNESS COORDINATOR 05/04/2012 Office visit Jada Pulliam WELLNESS COORDINATOR 03/10/2012 Office visit Jada Pulliam WELLNESS COORDINATOR 03/04/2012 Office visit Jada Pulliam WELLNESS COORDINATOR 01/13/2012 Office visit Ezequiel Mahan MD 01/08/2012 Nurse visit Mikki Carrasco MD 12/16/2011 Voided Ezequiel Mahan MD 11/28/2011 Office visit Ezequiel Mahan MD 10/28/2011 Office visit Jada Pulliam WELLNESS COORDINATOR 08/14/2011 Office visit Ezequiel Mahan MD 08/07/2011 Nurse visit Ezequiel Mahan MD 06/03/2011 Office visit Jada Heraclio WELLNESS COORDINATOR 05/07/2011 Office visit Ezequiel Mahan MD 04/28/2011 [...]
--- OUTSIDE RECORDS SUMMARY | 2019-12-14 18:32 | XMS REPORT ---
Author Shandra Porter Organization [facility] Address [address] [place], [place] [address] Care Team Providers Care Electronics Teacher Name Role Phone Jada Pulliam PCP Jada Pulliam PreferredProvider Allergies and Adverse Reactions Name Reaction Notes ciprofloxacin migraine codeine sulfate Plan of Treatment Planned Activity Comments Planned Date Planned Time Plan/Goal Urine Culture, [place] Count 03/04/2016 12:00 AM lumbar pain 12/17/2015 [...] Reviewed 02/29/2016 12:00 AM Rocephin 1 gram [facility]#1489-7189-17 Reviewe d 03/27/2016 12:00 AM INJECT SPINE LUMBAR/SACRAL Reviewed 03/27/2016 12:00 AM URNLS DIP STICK/TABLET RGNT AUTO W/O KATHRIN ROSCOPY Reviewed 03/26/2016 12:00 AM Benadryl, Up to 50 Mg [facility]# 8215-2166-18 Reviewed 04/04/2016 12:00 AM IMMUNOTHERAPY ONE INJECTION Reviewed 10/29/2011 12:00 AM URINALYSIS AUTO W/O SCOPE Reviewed 10/28/2011 12:00 AM COMPLETE CBC W/AUTO DIFF WBC Reviewed 10/28/2011 12:00 AM COMPREHEN METABOLIC PANEL Reviewed 10/28/2011 12:00 AM URINE CULTURE/COLONY COUNT Reviewed 05/22/2016 12:00 AM ALLERGEN SPECIFIC IGE Reviewed 05/22/2016 12:00 AM Decadron, Per 1 Mg [facility]# [address]-13 Re viewed 05/22/2016 12:00 AM Depo-Medrol 40mg [...] Reviewed 01/08/2012 12:00 AM Depo-Medrol 40 mg [facility]#[id number] Reviewe d 09/08/2016 12:00 AM METABOLIC PANEL TOTAL CA Reviewed 09/08/2016 12:00 AM COMPLETE CBC W/AUTO DIFF WBC Reviewed 09/08/2016 12:00 AM RADIOLOGIC EXAM CHEST 2 VIEWS FRONTAL&LA TERAL Reviewed 04/13/2016 12:00 AM Depo-Medrol, Per 80 Mg [facility]#[address]-78 Reviewed 04/13/2016 12:00 AM Decadron, Per 1 Mg [facility]# [address]-61 Re viewed 04/13/2016 12:00 AM THER/PROPH/DIAG INJ [...] 10/08/2017 12:00 AM GLYCOSYLATED HEMOGLOBIN TEST Reviewed 12/01/2012 12:00 AM COMPREHEN METABOLIC PANEL Reviewed 12/29/2012 12:00 AM Prolia, 60 Mg Reviewed 12/29/2012 12:00 AM THER/PROPH/DIAG INJ SC/IM Reviewed 01/10/2013 12:00 AM THER/PROPH/DIAG INJ SC/IM Reviewed 01/10/2013 12:00 AM Decadron, Per 1 Mg [facility]# [address]-14 Re viewed 01/10/2013 12:00 AM Depo-Medrol, Per 80 Mg [facility]#3603-1587-45 Reviewed 07/05/2013 12:00 AM Prolia, 60 Mg Reviewed 07/20/2013 12:00 AM THER/PROPH/DIAG INJ SC/IM Reviewed 07/20/2013 12:00 AM Depo-Medrol, Per 80 Mg [facility]#3251-4933-26 Reviewed 07/20/2013 12:00 AM Decadron, Per 1 Mg [facility]# [address]-16 Re viewed 05/13/2010 12:00 AM COMPREHEN METABOLIC [...] Reviewed 10/24/2009 12:00 AM Kenalog 40 Mg [facility]#7621-3553-88 Review ed 12/26/2014 12:00 AM Prolia, 60 [...] CULT SET UP? YES 05/22/2016 3:30 PM V700-LkT D pteronyssinus <0. 10 U/uPW307-BgB D farinae <0.10 U/uIJ754-DcJ Cat Dander <0.10 G814-XiX Dog Dander <0.10 U/qVL337-WhS [place] Grass <0.10 U/yAR890-NoQ Bluegrass,[place] <0.10 U/pWK135-KoY [place] Grass <0.10 U/kTA438-LfI Cockroach,[place] Citizen <0.10 E525-NeV Penicilliumchrysogen <0.10 M048-ZqF Cladosporiumherbarum <0.10 T634-PxF Aspergillusfumigatus <0.10 O855-XbJ Mucor racemosus <0.10 K992-TeB Alternariaalternata <0.10 G610-QjG Stemphyliumherbarum <0.10 C355-SyU Maple/[place] <0.10 U/fGA036-ZhF [place], White <0.10 U/wOD167-NfI Elm, [place] Citizen <0.10 U/jOA494-GyC [place] <0.10 U/rDP864-IoN Merlin, White <0.10 U/qHN476-VuJ Maple LeafSycamore <0.10 U/oPX768-LmN White [place] <0.10 U/rTR924-TcO Ragweed, [place] <0.10 V529-OiY [place] <0.10 W009- IgE Plantain,Urdu <0.10 R879-KtG Thistle, [place]inamese <0.10 Z644-AjV Pigweed, Common <0.10 M743-WsV Sheep [place] <0.10 G013-IxI Milk <0.10 K655-RkO Wheat <0.10 U/mZW568-NqO [place] <0.10 U/dGI346-WyF Peanut <0.10 U/fSJ359-ClT Soybean <0.10 U/fJA963-ZaZ Pork <0.10 U/dNL159-SoK Beef <0.10 U/rMYX89-QdX Food Mix(Seafoods) Negative K544-PnR Egg, Whole <0.10 U/uVU640-CdL Chocolate/[place] <0.10 07/21/2016 3:26 PM GLUCOSE 104.0 mg/dLSODIUM [...] Number Start Date Medicare RHC Medicare RHC [id number] N/A [place] [id number] N/A Medicare Part A Medicare - Lab/Xray [id number] N/A BCBS Bcbs [facility] [id number] July 05, 2013 Medicare Part A Medicare Part A [id number] Friday, July 05, 2013 [facility] [place] Insurance Me [place] Citizen Retriement [id number] N/A Medicare Part B Medicare [facility] [id number] Friday, July 05, 2013 [place] [employer] Insurance [employer] [facility] hia [place] Citizen Life Ins [id number] N/A Medicare Part A ZZZMedicare P A - Preventive [id number] N/A History of Encounters Visit Date Visit Type Provider 10/08/2017 Office visit Jada Pulliam OCCUPATIONAL THERAPY SUPERVISOR 10/06/2017 Office visit Jada Pulliam OCCUPATIONAL THERAPY SUPERVISOR 10/07/2016 [facility] Jessica Dhaliwal MD 08/12/2016 Office visit Jada Pulliam OCCUPATIONAL THERAPY SUPERVISOR 08/05/2016 Office visit Jada Pulliam OCCUPATIONAL THERAPY SUPERVISOR 07/21/2016 Office visit Jada Pulliam OCCUPATIONAL THERAPY SUPERVISOR 07/10/2016 [facility] Sage Green MD 07/09/2016 Office visit Valorie MCCLURE 07/09/2016 [facility] Jessica Dhaliwal MD 05/22/2016 Nurse visit Jada Pulliam OCCUPATIONAL THERAPY SUPERVISOR 04/13/2016 Office visit Katharina Murdock APR N 04/04/2016 Nurse visit Jada Pulliam OCCUPATIONAL THERAPY SUPERVISOR 03/26/2016 Office visit Jada Pulliam OCCUPATIONAL THERAPY SUPERVISOR 02/29/2016 Office visit Jada Pulliam OCCUPATIONAL THERAPY SUPERVISOR 01/09/2016 Office visit Jada Pulliam OCCUPATIONAL THERAPY SUPERVISOR 11/14/2015 Office visit Jada Pulliam OCCUPATIONAL THERAPY SUPERVISOR 07/16/2015 Nurse visit Jada Pulliam OCCUPATIONAL THERAPY SUPERVISOR 11/30/2014 Office visit Sharon Villanueva 10/18/2014 Office visit Jada Pulliam OCCUPATIONAL THERAPY SUPERVISOR 08/17/2014 Office visit Jaylene Rebolledo MD 06/28/2014 Office visit Jada Pulliam OCCUPATIONAL THERAPY SUPERVISOR 06/01/2014 Office visit Sharon Villanueva 04/28/2014 Nurse visit Jada Pulliam OCCUPATIONAL THERAPY SUPERVISOR 07/20/2013 Office visit Jada Pulliam OCCUPATIONAL THERAPY SUPERVISOR 07/05/2013 Nurse visit Jada Pulliam OCCUPATIONAL THERAPY SUPERVISOR 01/10/2013 Office visit Jada Pulliam OCCUPATIONAL THERAPY SUPERVISOR 12/29/2012 Nurse visit Jada Pulliam OCCUPATIONAL THERAPY SUPERVISOR 06/16/2012 Office visit Jada Pulliam OCCUPATIONAL THERAPY SUPERVISOR 05/04/2012 Office visit Jada Pulliam OCCUPATIONAL THERAPY SUPERVISOR 03/10/2012 Office visit Jada Pulliam OCCUPATIONAL THERAPY SUPERVISOR 03/04/2012 Office visit Jada Pulliam OCCUPATIONAL THERAPY SUPERVISOR 01/13/2012 Office visit Ezequiel Mahan MD 01/08/2012 Nurse visit Mikki Carrasco MD 12/16/2011 Voided Ezequiel Mahan MD 11/28/2011 Office visit Ezequiel Mahan MD 10/28/2011 Office visit Jada Heraclio OCCUPATIONAL THERAPY SUPERVISOR 08/14/2011 Office visit Ezequiel Mahan MD 08/07/2011 Nurse visit Ezequiel Mahan MD 06/03/2011 Office visit Jada Pulliam OCCUPATIONAL THERAPY SUPERVISOR 05/07/2011 Office visit Ezequiel Mahan MD [...]
--- OUTSIDE RECORDS SUMMARY | 2019-12-14 18:32 | XMS REPORT ---
Author Shandra Porter Organization [facility] Address [address] [place], [place] [address] Care Team Providers Care Spa Experience Coordinator Name Role Phone Jada Pulliam PCP Unavailable [...] Returned 02/29/2016 12:00 AM Rocephin 1 gram [facility]#9700-4688-13 Reviewe d 03/27/2016 12:00 AM URNLS DIP STICK/TABLET RGNT AUTO W/O KATHRIN ROSCOPY Returned 03/26/2016 12:00 AM Benadryl, Up to 50 Mg [facility]# 0918-5155-27 Reviewed 04/04/2016 12:00 AM IMMUNOTHERAPY ONE INJECTION Reviewed 04/13/2016 12:00 AM Depo-Medrol, Per 80 Mg [facility]#[address]-78 Reviewed 04/13/2016 12:00 AM Decadron, Per 1 Mg [facility]# [address]-87 Re viewed 04/13/2016 12:00 AM THER/PROPH/DIAG INJ SC/IM Reviewed 10/29/2011 12:00 AM URINALYSIS AUTO W/O SCOPE Reviewed 10/28/2011 12:00 AM COMPLETE CBC W/AUTO DIFF WBC Returned 10/28/2011 12:00 AM COMPREHEN METABOLIC PANEL Returned 10/28/2011 12:00 AM URINE CULTURE/COLONY COUNT Returned 05/22/2016 12:00 AM ALLERGEN SPECIFIC IGE Returned 05/22/2016 12:00 AM Decadron, Per 1 Mg [facility]# [address]-80 Re viewed 05/22/2016 12:00 AM Depo-Medrol 40mg Reviewed 05/22/2016 12:00 AM THER/PROPH/DIAG INJ SC/IM Reviewed 01/08/2012 12:00 AM THER/PROPH/DIAG INJ SC/IM Reviewed 01/08/2012 12:00 AM Depo-Medrol 40 mg [facility]#[id number] Reviewe d 03/12/2012 12:00 AM URINALYSIS AUTO [...] 01/10/2013 12:00 AM Decadron, Per 1 Mg [facility]# [address]-29 Re viewed 01/10/2013 12:00 AM Depo-Medrol, Per 80 Mg [facility]#6122-0433-97 Reviewed 07/05/2013 12:00 AM Prolia, 60 Mg Reviewed 07/20/2013 12:00 AM THER/PROPH/DIAG INJ SC/IM Reviewed 07/20/2013 12:00 AM Depo-Medrol, Per 80 Mg [facility]#3639-4732-24 Reviewed 07/20/2013 12:00 AM Decadron, Per 1 Mg [facility]# [address]-05 Re viewed 05/13/2010 12:00 AM COMPREHEN METABOLIC [...] Reviewed 10/24/2009 12:00 AM Kenalog 40 Mg [facility]#8985-1897-51 Review ed 12/26/2014 12:00 AM Prolia, 60 [...] /HPFTRICHOMONAS NEGATIVE YEAST NEGATIVE 05/22/2016 3:30 PM Z813-QmB D pteronyssinus <0. 10 U/pWS318-SoD D farinae <0.10 U/pIZ224-QtV Cat Dander <0.10 X439-GfL Dog Dander <0.10 U/yVO581-EzG [place] Grass <0.10 U/yQG175-JpP Bluegrass,[facility] <0.10 U/qXC466-DuA [place] Grass <0.10 U/aLU735-HrJ Maple/[place] <0.10 U/eGF266-CyW [place], White <0.10 U/kDI697- IgE Elm, [place]ian <0.10 U/iIT258-IbG [place] <0.10 U/wHP363-LnX Merlin, White <0.10 U/iIR694-TzZ Maple LeafSycamore <0.10 U/vYN386-UlJ White [place] <0.10 U/mSL102-TlJ Milk <0.10 Y232-PdT Wheat <0.10 U/sTO956-XhD [place] <0.10 U/yCJ282- IgE Peanut <0.10 U/yJL008-EeG Soybean <0.10 U/bGI021-NsA Pork <0.10 U/pJP077-HoQ Beef <0.10 U/yCML86-GnY Food Mix(Seafoods) Negative Q347-MbI Egg, Whole <0.10 U/oFN887-UvJ Chocolate/[place] <0.10 History Of Immunizations Name Date Admin [...] Part A Medicare [facility] [id number] N/A [place] [employer] [facility] [email or web address] Ins [id number] N/A Medicare Part A ZZZMedicare P A - Preventive [id number] N/A Medicare Part A Medicare - Lab/Xray [id number] N/A BCBS Bcbs [facility] [id number] July 05, 2013 Medicare Part A Medicare Part A [id number] Friday, July 05, 2013 Education [employer] [place] Retriement [id number] N/A Medicare Part B Medicare Of [place] [id number] Friday, July 05, 2013 History of Encounters Visit Date Visit Type Provider 05/22/2016 Nurse visit Jada Pulliam SUPERINTENDENT MARINE 04/13/2016 Office visit Katharina Murdock APR N 04/04/2016 Nurse visit Jada Pulliam SUPERINTENDENT MARINE 03/26/2016 Office visit Jada Pulliam SUPERINTENDENT MARINE 02/29/2016 Office visit Jada Pulliam SUPERINTENDENT MARINE 01/09/2016 Office visit Jada Pulliam SUPERINTENDENT MARINE 11/14/2015 Office visit Jada Pulliam SUPERINTENDENT MARINE 07/16/2015 Nurse visit Jada Pulliam SUPERINTENDENT MARINE 11/30/2014 Office visit Sharon Villanueva 10/18/2014 Office visit Jada Pulliam SUPERINTENDENT MARINE 08/17/2014 Office visit Jaylene Rebolledo MD 06/28/2014 Office visit Jada Pulliam SUPERINTENDENT MARINE 06/01/2014 Office visit Sharon Villanueva 04/28/2014 Nurse visit Jada Pulliam SUPERINTENDENT MARINE 07/20/2013 Office visit Jada Pulliam SUPERINTENDENT MARINE 07/05/2013 Nurse visit Jada Pulliam SUPERINTENDENT MARINE 01/10/2013 Office visit Jada Pulliam SUPERINTENDENT MARINE 12/29/2012 Nurse visit Jada Pulliam SUPERINTENDENT MARINE 06/16/2012 Office visit Jada Pulliam SUPERINTENDENT MARINE 05/04/2012 Office visit Jada Pulliam SUPERINTENDENT MARINE 03/10/2012 Office visit Jada Pulliam SUPERINTENDENT MARINE 03/04/2012 Office visit Jada Pulliam SUPERINTENDENT MARINE 01/13/2012 Office visit Ezequiel Mahan MD 01/08/2012 Nurse visit Mikki Carrasco MD 12/16/2011 Voided Ezequiel Mahan MD 11/28/2011 Office visit Ezequiel Mahan MD 10/28/2011 Office visit Jada Pulliam SUPERINTENDENT MARINE 08/14/2011 Office visit Ezequiel Mahan MD 08/07/2011 Nurse visit Ezequiel Mahan MD 06/03/2011 Office visit Jada Pulliam SUPERINTENDENT MARINE 05/07/2011 Office visit Ezequiel Mahan MD 04/28/2011 [...] Office visit Braydon Ramirez DO 08/15/2009 Laboratory Brayodn Ramirez DO 07/02/2009 Office visit Braydon Ramirez DO
--- OUTSIDE RECORDS SUMMARY | 2019-12-14 18:32 | XMS REPORT | CCD ---
Author ERICH Rich Organization Unknown Address [address] [facility] [address] [place] [id number] Care Team Providers Care Paper Control Clerk Name Role Phone ZULEYMA GASTON, RICHARD Mei ZULEYMA GASTON, RICHARD Vera Vital Signs Unknown or Not Available. Allergies Unknown or Not Available. Procedures Unknown or Not Available. History of Immunizations Unknown or Not Available. Problems Unknown or Not Available. Results Unknown or Not Available. Active Medications Unknown or Not Available. Medications Administered During Visit Unknown or Not Available. Encounters Encounter Diagnosis Diagnosis Code Start Date OPEN WOUND OF FINGER 8830 08/30/2014 Social History Smoking Status Code Start Date End Date Never smoker [id number] Patient Decision Aids Unknown or Not Available. Discharge Instructions You were admitted to [facility] on 08/30/2014 with a principal diagnosis of OPEN WOUND OF FINGER. You were discharged from [facility] on 08/30/2014. Should you have any questions prior to discharge, please contact a member of your healthcare team. If you have left the hospital and have any questions, please contact your primary care physician. Chief Complaint and Reason For Visit Chief Complaint Date of Onset FINGER LACERATION Function Status Unknown or Not Available. Referral/Transition of Care Unknown or Not Available.
--- OUTSIDE RECORDS SUMMARY | 2019-12-14 18:33 | XMS REPORT | CCD ---
Author ERICH Pascal Organization Unknown Address [address] [facility] [address] [place] [place] [id number] Care Team Providers Care Heavy Duty Mechanic Name Role Phone ZULEYMA GASTON, RICHARD Mei ZULEYMA GASTON, RICHARD Vera Vital Signs Unknown or Not Available. Allergies Unknown or Not Available. Procedures Unknown or Not Available. History of Immunizations Unknown or Not Available. Problems Unknown or Not Available. Results Unknown or Not Available. Medications Unknown or Not Available. Medications Administered Unknown or Not Available. Encounters Encounter Diagnosis Diagnosis Code Start Date OPEN WOUND OF FINGER 8830 08/30/2014 Social History Smoking Status Code Start Date End Date Never smoker [id number] Patient Decision Aids Unknown or Not Available. Discharge Instructions You were admitted to [facility] on 08/30/2014 with a principal diagnosis of OPEN WOUND OF FINGER. You were discharged from [facility] on 08/30/2014. Should you have any questions [...]
--- OUTSIDE RECORDS SUMMARY | 2019-12-14 18:33 | XMS REPORT | Continuity of Care Document ---
Demographics Preferred Language Unknown Marital Status Unknown Sikh Affiliation Unknown Race Unknown Ethnic Group Unknown Author Organization Unknown Address Unknown Phone Unavailable Allergies Active Description Code Type Severity Reaction Onset Reported/Identified Relationship to Patient Clinical Status Yes No Known Drug Allergies [id number] N/A N/A Yes No Known Drug Allergies [id number] Drug Allergy Unknown N/A 12/08/2019 Medications There is no data. Problems Date Dx Coded Attending Type Code Diagnosis Diagnosed By 09/16/2019 P I890 Lymph edema, not elsewhere classified 09/16/2019 S Q04827 Edis n in right knee 09/16/2019 S Y34607 Edis n in left knee 12/08/2019 NIMISHA DPM, HANNAH Q Ot Z01.818 ENCOUNTER FOR OTHER PREPROCEDURAL EXAMIN 12/09/2019 NIMISHA DPM, HANNAH Q Ot Z01.818 ENCOUNTER FOR OTHER PREPROCEDURAL EXAMIN Procedures There is no data. Results Test Result Range Methicillin resistant Staphylococcus aur eus (MRSA) screening culture - 12/12/19 09:40 Methicillin resistant Staphylococcus aureus (MRSA) scr eening culture NEG NRG Encounters ACCT No. Visit Date/Time Discharge Status Pt. Type Provider Facility Loc./Unit Complaint [id number] 12/07/2019 10:50:50 Document Registration [id number] 10/20/2019 10:20:35 Document Registration [id number] 09/13/2019 08:37:44 Document Registration [id number] 08/30/2019 11:51:09 Document Registration [id number] 08/15/2019 11:33:09 Document Registration [id number] 07/04/2019 08:05:49 Document Registration [id number] 07/02/2019 03:04:18 Document Registration [id number] 07/02/2019 03:02:24 Document Registration [id number] 07/02/2019 02:51:08 Document Registration [id number] 03/15/2019 08:41:26 Document Registration [id number] 03/14/2019 16:39:37 Document Registration [id number] 03/09/2019 10:10:41 Document Registration [id number] 01/13/2019 00:33:19 Document Registration [id number] 08/23/2018 08:59:09 Document Registration [id number] 07/16/2018 18:05:44 Document Registration [id number] 07/16/2018 00:44:06 Document Registration [id number] 07/12/2018 12:36:10 Document Registration [id number] 07/05/2018 20:07:30 Document Registration [id number] 06/30/2018 14:56:37 Document Registration [id number] 05/13/2018 07:52:43 Document Registration [id number] 05/10/2018 08:27:49 Document Registration [id number] 04/29/2018 10:32:43 Document Registration [id number] 04/19/2018 14:08:35 Document Registration [id number] 04/14/2018 13:33:30 Document Registration [id number] 04/08/2018 14:40:18 Document Registration [id number] 04/05/2018 13:49:31 Document Registration [id number] 01/03/2018 14:13:24 Document Registration [id number] 10/08/2017 10:43:57 Document Registration [id number] 12/07/2019 11:28:02 12/07/2019 23:59: 59 CLS Outpatient Jada Pulliam [id number] 10/18/2019 11:04:15 10/18/2019 23:59: 59 CLS Outpatient Chadd Lucio [id number] 07/28/2019 11:14:13 07/28/2019 23:59: 59 CLS Outpatient Jessica Dhaliwal [id number] 03/22/2019 09:37:15 03/22/2019 23:59: 59 CLS Outpatient Chadd Lucio [id number] 03/14/2019 14:44:00 03/14/2019 23:59: 59 CLS Outpatient Jada Pulliam [id number] 02/08/2019 11:55:38 02/08/2019 23:59: 59 CLS Outpatient Hermilo Gallego [id number] 01/11/2019 15:32:14 01/11/2019 23:59: 59 CLS Outpatient Hermilo Gallego [id number] 08/24/2018 10:23:27 08/24/2018 23:59: 59 CLS Outpatient Chadd Lucio [id number] 08/10/2018 15:34:57 08/10/2018 23:59: 59 CLS Outpatient Jessica Dhaliwal [id number] 08/02/2018 11:54:32 08/02/2018 23:59: 59 CLS Outpatient Chadd Lucio [id number] 07/21/2018 15:20:59 07/21/2018 23:59: 59 CLS Outpatient Chadd Lucio [id number] 07/20/2018 15:57:15 07/20/2018 23:59: 59 CLS Outpatient Geraldine Dos Santos [id number] 07/05/2018 19:23:25 07/05/2018 23:59: 59 CLS Outpatient Matt Rice [id number] 06/29/2018 11:56:11 06/29/2018 23:59: 59 CLS Outpatient Chadd Lucio [id number] 04/20/2018 14:15:36 04/20/2018 23:59: 59 CLS Outpatient Jada Pulliam [id number] 03/19/2018 14:00:14 03/19/2018 23:59: 59 CLS Outpatient Hermilo Gallego [id number] 03/12/2018 10:58:29 03/12/2018 23:59: 59 CLS Outpatient Hermilo Gallego [id number] 02/26/2018 09:30:23 02/26/2018 23:59: 59 CLS Outpatient Hermilo Gallego [id number] 01/03/2018 14:10:05 01/03/2018 23:59: 59 CLS Outpatient Katharina Murdock [id number] 10/08/2017 10:58:24 10/08/2017 23:59: 59 CLS Outpatient Walker, Jada [id number] 10/06/2017 14:19:23 10/06/2017 23:59: 59 CLS Outpatient Walker, Jada [id number] 09/01/2016 16:43:04 09/01/2016 23:59: 59 CLS Outpatient Jessica Dhaliwal [id number] 08/12/2016 14:21:10 08/12/2016 23:59: 59 CLS Outpatient Walker, Jada [id number] 08/05/2016 09:24:07 08/05/2016 23:59: 59 CLS Outpatient Walker, Jada [id number] 07/21/2016 17:09:34 07/21/2016 23:59: 59 CLS Outpatient Ashly Mcmanus [id number] 07/21/2016 15:38:38 07/21/2016 23:59: 59 CLS Outpatient Walker, Jada [id number] 07/09/2016 18:09:39 07/09/2016 23:59: 59 CLS Outpatient Valorie Rocha [id number] 05/22/2016 16:50:18 05/22/2016 23:59: 59 CLS Outpatient Walker, Jada [id number] 04/13/2016 14:19:59 04/13/2016 23:59: 59 CLS Outpatient Katharina Murdock [id number] 04/04/2016 10:16:54 04/04/2016 23:59: 59 CLS Outpatient Walker, Jada [id number] 03/26/2016 15:57:04 03/26/2016 23:59: 59 CLS Outpatient Walker, Jada [id number] 11/14/2015 14:34:15 11/14/2015 23:59: 59 CLS Outpatient Walker, Jada [id number] 10/18/2014 12:14:54 10/18/2014 23:59: 59 CLS Outpatient Walker, Jada [id number] 08/17/2014 14:40:40 08/17/2014 23:59: 59 CLS Outpatient Luke Rebolledochaitanya Caterina [id number] 06/28/2014 10:40:49 06/28/2014 23:59: 59 CLS Outpatient Walker, Jada [id number] 06/01/2014 11:11:54 06/01/2014 23:59: 59 CLS Outpatient Sharon Bustillos [id number] 04/28/2014 11:01:00 04/28/2014 23:59: 59 CLS Outpatient Walker, Jada [id number] 12/12/2019 09:12:00 020 15:12:00 DIS Outpatient NIMISHA DPM, HANNAH Q Via [facility] HALLUX RIGIDUS LEFT [id number] 12/08/2019 11:59:00 020 13:39:00 DIS Outpatient NIMISHA DPM, HANNAH Q Via [facility] PREOP HALLUX RIGIDUS LEFT
--- OUTSIDE RECORDS SUMMARY | 2019-12-14 18:33 | XMS REPORT | CCD ---
Author ERICH Hutchins Organization Unknown Address [address] [facility] [address] [place] [id number] Care Team Providers Care Living Advisor Name Role Phone [facility] VALENTIN VAIL MD [facility] Vital Signs Unknown or Not Available. Allergies Unknown or Not Available. Procedures Unknown or Not Available. History of Immunizations Unknown or Not Available. Problems Unknown or Not Available. Results Unknown or Not Available. Active Medications Unknown or Not Available. Medications Administered During Visit Unknown or Not Available. Encounters Encounter Diagnosis Diagnosis Code Start Date ENCOUNTER FOR REMOVAL OF SUTURES V5832 1 11/08/2013 Social History Smoking Status Code Start Date End Date Never smoker [id number] Patient Decision Aids Unknown or Not Available. Discharge Instructions You were admitted to [facility] on 09/07/2014 with a principal diagnosis of ENCOUNTER FOR REMOVAL OF SUTURES. You were discharged from [facility] on 09/07/2014. Should you have any questions prior to discharge, please contact a member of your healthcare team. If you have left the hospital and have any questions, please contact your primary care physician. Chief Complaint and Reason For Visit Chief Complaint Date of Onset SUTURE REMOVAL Function Status Unknown or Not Available. Plan of Care Unknown or Not Available. Referral/Transition of Care Unknown or Not Available.
== END 2019-12-12 15:12 | disposition home or self-care (01) ==
LOC: SDC 09:12
PROVIDERS: ATTEND Podiatrist Foot & Ankle Surgery
DX: M20.22 Hallux rigidus, left foot (principal); Z11.2 Encounter for screening for other bacterial diseases; Z79.82 Long term (current) use of aspirin; Z79.899 Other long term (current) drug therapy; E78.5 Hyperlipidemia, unspecified; G47.00 Insomnia, unspecified; E66.9 Obesity, unspecified; G25.81 Restless legs syndrome; M06.9 Rheumatoid arthritis, unspecified; M19.91 Primary osteoarthritis, unspecified site; Z68.31 Body mass index [BMI] 31.0-31.9, adult
CPT/HCPCS: 87081